=== PATIENT | female | born 1975 | race Caucasian/White ===

== ENCOUNTER 2019-09-01 19:29 | Emergency (ER) | payer MEDICAID, OTHER ==
--- OUTSIDE RECORDS SUMMARY | 2019-09-01 19:31 | XMS REPORT ---
:1975 [facility] Address [address] [place] [address] Dr. Rangel [address] [place] [id number] Care Team Providers Name Role Phone Unavailable Unavailable Unavailable Payers Payer Name Policy Type Policy Number Effective Date Expiration Date Problems This patient has no known problems. Allergies, Adverse Reactions, Alerts This patient has no known allergies or adverse reactions. Medications This patient has no known medications.
--- NOTE | 2019-09-01 21:23 | ER ---
Nurse's Notes [facility] Name: Stoney Vu Age: 44 yrs Sex: Female : 1975 Arrival Date: 09/01/2019 Time: 19:30 Bed 15 Private MD: Diagnosis: Fever, unspecified;Acute upper respiratory infection, unspecified Presentation: 08/31 19:58 Chief complaint: Patient states: "I brought my son yesterday and he was diagnosed with jd3 type B flu. today I am having fever and body aches and I wanted to get checked out.". Coronavirus screen: The patient has NOT traveled to a country currently being monitored by the [facility] within the last 14 days. The patient has NOT had contact with any known and/or suspected case of coronavirus. Proceed with normal triage procedures. Ebola Screen: Patient negative for fever greater than or equal to 101.5 degrees Fahrenheit, and additional compatible Ebola Virus Disease symptoms. Initial Sepsis Screen: Does the patient meet any 2 criteria? No. Patient's initial sepsis screen is negative. Does the patient have a suspected source of infection? No. Patient's initial sepsis screen is negative. Risk Assessment: Do you want to hurt yourself or someone else? Patient reports no desire to harm self or others. Note Tylenol taken at 1900. 19:58 Method Of Arrival: Ambulatory jd3 19:58 Acuity: ESTELEL 4 jd3 21:40 Onset of symptoms was September 01, 2019. mg2 Triage Assessment: 21:40 General: Appears in no apparent distress. comfortable, Behavior is calm, cooperative. 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 - Social history:: Smoking status: Patient reports the use of cigarette tobacco products, smokes one-half pack cigarettes per day. - Family history:: not pertinent. Screenin:40 Abuse screen: Denies threats or abuse. Denies injuries from another. Nutritional mg2 screening: No deficits noted. Tuberculosis screening: No symptoms or risk factors identified. 21:40 Fall Risk None identified. mg2 Assessment: 21:40 General: Appears in no apparent distress. comfortable. Pain: Denies pain. Neuro: Level mg2 of Consciousness is awake, alert, obeys commands, Oriented to person, place, time, situation. Cardiovascular: Capillary refill < 3 seconds Patient's skin is warm and dry. Respiratory: Airway is patent Respiratory effort is even, unlabored, Respiratory pattern is regular, symmetrical. Respiratory: Reports cough that is. GI: No signs and/or symptoms were reported involving the gastrointestinal system. : No signs and/or symptoms were reported regarding the genitourinary system. EENT: No signs and/or symptoms were reported regarding the EENT system. Derm: Skin is intact, is healthy with good turgor, Skin is pink, warm \\T\\ dry. normal. Musculoskeletal: Circulation, motion, and sensation intact. Capillary refill < 3 seconds. Vital Signs: 20:01 BP 138 / 98; Pulse 93; Resp 17 S; Temp 98.0(O); Pulse Ox 97% on R/A; Weight 127.01 kg jd3 (R); Height 5 ft. 7 in. (170.18 cm) (R); Pain 2/10; 21:40 BP 130 / 89; Pulse 90; Resp 18; Temp 98; Pulse Ox 100% on R/A; mg2 20:01 Body Mass Index 43.86 (127.01 kg, 170.18 cm) jd3 ED Course: 19:30 Patient arrived in ED. cl3 19:59 Triage completed. jd3 20:01 Arm band placed on. jd3 20:54 Harmeet Otero MD is Attending Physician. torito 21:36 Lino Condon, SARAH is Primary Nurse. mg2 21:40 No provider procedures requiring assistance completed. mg2 21:40 Patient did not have IV access during this emergency room visit. mg2 21:41 Patient has correct armband on for positive identification. mg2 Administered Medications: 21:44 Drug: Tamiflu 75 mg Route: PO; mg2 21:44 Follow up: Response: No adverse reaction; Medication administered at discharge. mg2 Outcome: 21:23 Discharge ordered by . torito 21:45 Patient left the ED. mg2 21:45 Discharged to home ambulatory, with family. mg2 21:45 Condition: good 21:45 Discharge instructions given to patient, family, Instructed on discharge instructions, mg2 follow up and referral plans. medication usage, Demonstrated understanding of instructions, follow-up care, medications, Prescriptions given X 1. Signatures: Harmeet Otero MD MD cha Davies, Jonathon, RN RN jd3 Lino Condon RN RN mg2 Alma Delia Ibanez cl3 Corrections: (The following items were deleted from the chart) 20:03 20:01 Resp 17bpm; Temp 98.0F; 127.01 kg Reported; Height 5 ft. 7 in. Reported; BMI: jd3 43.8; Pain 2/10; jd3
--- NOTE | 2019-09-01 21:23 | EDPHYS ---
Physician Documentation [facility] Name: Stoney Vu Age: 44 yrs Sex: Female : 1975 Arrival Date: 09/01/2019 Time: 19:30 Bed 15 Private MD: ED Physician Harmeet Otero HPI: 08/31 21:21 This 44 yrs old Female presents to ER via Ambulatory with complaints of Fever.torito 21:21 The patient reports fever, that was measured at 101 degrees Fahrenheit. Onset: The torito symptoms/episode began/occurred 2 day(s) ago. Modifying factors: there are no obvious modifying factors. Associated signs and symptoms: Pertinent positives: chills, cough, headache, myalgias, runny nose, sinus congestion. Severity of symptoms: At their worst the symptoms were mild in the emergency department the symptoms are unchanged. The patient has not experienced similar symptoms in the past. 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 - Social history:: Smoking status: Patient reports the use of cigarette tobacco products, smokes one-half pack cigarettes per day. - Family history:: not pertinent. ROS: 21:21 Constitutional: Negative for fever, chills, and weight loss, Eyes: Negative for injury, torito pain, redness, and discharge, ENT: Negative for injury, pain, and discharge, Neck: Negative for injury, pain, and swelling, Cardiovascular: Negative for chest pain, palpitations, and edema, Abdomen/GI: Negative for abdominal pain, nausea, vomiting, diarrhea, and constipation, Back: Negative for injury and pain, : Negative for injury, bleeding, discharge, and swelling, MS/Extremity: Negative for injury and deformity, Skin: Negative for injury, rash, and discoloration, Neuro: Negative for headache, weakness, numbness, tingling, and seizure, Psych: Negative for depression, anxiety, suicide ideation, homicidal ideation, and hallucinations, Allergy/Immunology: Negative for hives, rash, and allergies, Endocrine: Negative for neck swelling, polydipsia, polyuria, polyphagia, and marked weight changes, Hematologic/Lymphatic: Negative for swollen nodes, abnormal bleeding, and unusual bruising. 21:21 Respiratory: Positive for cough, with no reported sputum. Exam: 21:21 Constitutional: This is a well developed, well nourished patient who is awake, alert, torito and in no acute distress. Head/Face: Normocephalic, atraumatic. Eyes: Pupils equal round and reactive to light, extra-ocular motions intact. Lids and lashes normal. Conjunctiva and sclera are non-icteric and not injected. Cornea within normal limits. Periorbital areas with no swelling, redness, or edema. ENT: Nares patent. No nasal discharge, no septal abnormalities noted. Tympanic membranes are normal and external auditory canals are clear. Oropharynx with no redness, swelling, or masses, exudates, or evidence of obstruction, uvula midline. Mucous membranes moist. Neck: Trachea midline, no thyromegaly or masses palpated, and no cervical lymphadenopathy. Supple, full range of motion without nuchal rigidity, or vertebral point tenderness. No Meningismus. Chest/axilla: Normal chest wall appearance and motion. Nontender with no deformity. No lesions are appreciated. Cardiovascular: Regular rate and rhythm with a normal S1 and S2. No gallops, murmurs, or rubs. Normal PMI, no JVD. No pulse deficits. Respiratory: Lungs have equal breath sounds bilaterally, clear to auscultation and percussion. No rales, rhonchi or wheezes noted. No increased work of breathing, no retractions or nasal flaring. Abdomen/GI: Soft, non-tender, with normal bowel sounds. No distension or tympany. No guarding or rebound. No evidence of tenderness throughout. Back: No spinal tenderness. No costovertebral tenderness. Full range of motion. Skin: Warm, dry with normal turgor. Normal color with no rashes, no lesions, and no evidence of cellulitis. MS/ Extremity: Pulses equal, no cyanosis. Neurovascular intact. Full, normal range of motion. Neuro: Awake and alert, GCS 15, oriented to person, place, time, and situation. Cranial nerves II-XII grossly intact. Motor strength 5/5 in all extremities. Sensory grossly intact. Cerebellar exam normal. Normal gait. Psych: Awake, alert, with orientation to person, place and time. Behavior, mood, and affect are within normal limits. 21:21 Musculoskeletal/extremity: DVT Exam: No signs of deep vein thrombosis. no pain, no swelling, no tenderness, negative Homans' sign noted on exam, no appreciated bluish discoloration, no erythema, no increased warmth. Vital Signs: 20:01 BP 138 / 98; Pulse 93; Resp 17 S; Temp 98.0(O); Pulse Ox 97% on R/A; Weight 127.01 kg jd3 (R); Height 5 ft. 7 in. (170.18 cm) (R); Pain 2/10; 21:40 BP 130 / 89; Pulse 90; Resp 18; Temp 98; Pulse Ox 100% on R/A; mg2 20:01 Body Mass Index 43.86 (127.01 kg, 170.18 cm) jd3 MDM: 20:54 Patient medically screened. [facility] 21:22 Data reviewed: vital signs, nurses notes. [facility] Administered Medications: 21:44 Drug: Tamiflu 75 mg Route: PO; mg2 21:44 Follow up: Response: No adverse reaction; Medication administered at discharge. mg2 Disposition: 09/01/19 21:23 Discharged to Home. Impression: Fever, unspecified, Acute upper respiratory infection, unspecified. - Condition is Stable. - Discharge Instructions: Upper Respiratory Infection, Adult, Upper Respiratory Infection, Adult, [id number], Cough, Adult. - Prescriptions for Tamiflu 75 mg Oral Capsule - take 1 tablet by ORAL route every 12 hours for 5 days; 10 tablet. - Medication Reconciliation Form, Thank You Letter, Antibiotic Education, Prescription Opioid Use form. - Follow up: Private Physician; When: 2 - 3 days; Reason: Recheck today's complaints, Continuance of care, Re-evaluation by your physician. - Problem is new. - Symptoms have improved. Signatures: Harmeet Otero MD MD cha Davies, Jonathon, RN RN jd3 Lino Condon RN RN mg2 Corrections: (The following items were deleted from the chart) 21:45 21:23 09/01/2019 21:23 Discharged to Home. Impression: Fever, unspecified; Acute upper mg2 respiratory infection, unspecified. Condition is Stable. Forms are Medication Reconciliation Form, Thank You Letter, Antibiotic Education, Prescription Opioid Use. Follow up: Private Physician; When: 2 - 3 days; Reason: Recheck today's complaints, Continuance of care, Re-evaluation by your physician. Problem is new. Symptoms have improved. torito
[2019-09-01] MEDS ORDERED: OSELTAMIVIR 75 MG CAP ONE (21:42)
[2019-09-01 22:23] VITALS: BP 138/98; TEMP 98; O2SAT 97
== END 2019-09-01 21:45 | disposition home or self-care (01) ==
LOC: ER 19:29
DX: J06.9 Acute upper respiratory infection, unspecified (principal)
CPT/HCPCS: 99283

== ENCOUNTER 2020-04-04 11:26 | Emergency (ER) | payer OTHER ==
--- OUTSIDE RECORDS SUMMARY | 2020-04-04 12:11 | XMS REPORT | Continuity of Care Document ---
:1975 Author Organization [facility] t Address [address] [place] [address] Care Team Providers Name Role Phone Unavailable Unavailable Unavailable Payers Payer Name Policy Type Policy Number Effective Date Expiration Date S ource Problems This patient has no known problems. Allergies, Adverse Reactions, Alerts Allergy Allergy Status Severity Reaction(s) Onset Inactive Treating Comm ents Source Name Type Date Date Clinician [place] DA Active [facility] ins 10-28 [place] 00:00: [facility] 00 [facility] Medications This patient has no known medications. Procedures This patient has no known procedures. Results Test Description Test Time Test Comments Results Result Comments Source SURGICAL SPECIMENS 2019-11-12 08:35:00 RUN DATE: 11/12/19 [facility] - LAB PAGE 1 RUN TIME: 0835 Specimen Inquiry RUN USER: INTERFACE PATIENT: PAT MAI LOC: Daniel5N POD B U #: [id number] AGE/SX: 44/F ROOM: [facility] RE11/09/19REG DR: Immanuel Villatoro MD : 75 BED: 1 DIS: 11/10/19 STATUS: DIS IN TLOC: SPEC #: [id number] RECD: 11/09/19 STATUS: APOORVA REQ #: [id number] ILIANA: 11/09/19-[address]: Immanuel Villatoro MD ENTERED: 11/09/19 SP TYPE: SURG OTHR DR: No Primary or Family Physician Lanre Lee Jr, MDORDERED: PATHGM5, PATH SPEC, H E STAIN, IRON STAIN, PAS STAIN, TRICHROME STAIN, PAS WO.STAIN HISTOLOGY: TISSUE ID BLK PCS PETE LEV / PROCEDURE DISPOSITION ____ ___ ___ ___ ___ LIVER WEDGE BX A 1 2 TISSUES: A. LIVER WEDGE BIOPSY - Liver Biopsy CLINICAL HISTORY Morbid Obesity COMMENT Sections of the specimen demonstrate liver parenchyma with mild steatosis (approximately 5%). Mild nonspecific lobular and portal tract inflammation which predominantly consists of lymphocytes and macrophages is identified. Special stains are performed. No iron accumulation is identified on an iron stain. No PAS positive diastase resistant globules are identified (PAS stains with and without diastase). A trichrome stain demonstrates mild fibrous expansion of some portal tracts. The findings support the morphologic interpretation. Clinical correlation is recommended. FINAL DIAGNOSIS A-LIVER, WEDGE BIOPSY: - Mild steatosis. -See comment. GROSS DESCRIPTION A-LIVER BIOPSY: A piece of cade tissue which measures 1.5 x 0.7 x 0.7 cm. The specimen is sectioned and submitted in its entirety in a single cassette. MICROSCOPIC DESCRIPTION Microscopic performed. CONTINUED ON NEXT PAGE RUN DATE: 11/12/19 [facility] - LAB PAGE 2 RUN TIME: 834 Specimen Inquiry RUN USER: INTERFACE SPEC #: [id number] PATIENT: PAT MAI TARA #[id number] (Continued)--------- --- Signed SIGNATURE ON FILE AndrewKathy MD 11/12/19 0835 END OF REPORT MAGNESIUM 2019-11-10 07:06:00 Test Item Value Reference Range Interpretation Comme nts MAGNESIUM (test code = MAG) 1.6 mg/dL 1.4-2.6 N [id number] 07:06:00 Test Item Value Reference Range Interpretation Comments PHOSPHOROUS (test code = PHOS) 2.6 mg/dL 2.7-4.5 L BASIC METABOLIC [id number] 07:06:00 Test Item Value Reference Range Interpretation Comments SODIUM (test code 139 MMOL/L 136-143 N = NA) POTASSIUM (test 4.8 MMOL/L 3.5-5.1 N code = K) CHLORIDE (test 103 MMOL/L 98-107 N code = CL) CARBON DIOXIDE 25 mmol/L 24-31 N (test code = CO2) GLUCOSE (test code 116 mg/dL 70-104 H = GLU) BLOOD UREA 8.2 MG/DL 7.0-21.0 N NITROGEN (test code = BUN) GLOMERULAR >=60 max >60 The estimated FILTRATION RATE estimate glomerular (test code = GFR) filtration rate is computed usingpatient ra ce, age (>18), sex, and serum creatinin e. If anyof the neede d data elements a re missing the Laboratory johnnie ot compute an estimation of t he glomerular filtration rate . CREATININE (test 0.6 mg/dL 0.8-1.5 L code = CREAT) CALCIUM (test code 8.9 mg/dL 8.8-10.2 N = CA) CBC W/AUTO [id number] 06:34:00 Test Item Value Reference Range Interpretation Comments WHITE BLOOD CELL (test code = 14.7 x10 3/uL 4.8-10.8 H WBC) RED BLOOD CELL (test code = 3.51 x10 6/uL 4.20-5.40 L RBC) HEMOGLOBIN (test code = HGB) 11.3 g/dL 14.5-20 L HEMATOCRIT (test code = HCT) 34.8 % 37.0-47.0 L MEAN CELL VOLUME (test code = 99.1 fL 81.0-99.0 H MCV) MEAN CELL HGB (test code = 32.2 pg 27-31 H MCH) MEAN CELL HGB CONCENTRATION 32.5 G/DL 33-36.5 L (test code = MCHC) RED CELL DISTRIBUTION WIDTH 14.0 % 12.9-16.9 N (test code = RDW) PLATELET COUNT (test code = 251 150-440 N PLT) MEAN PLATELET VOLUME (test 10.5 fL 8.9-12.4 N code = MPV) NEUTROPHIL % (test code = NT%) 78.8 % 42.2-75.2 H LYMPHOCYTE % (test code = LY%) 13.8 % 20.5-51.1 L MONOCYTE % (test code = MO%) 6.6 % 1.7-9.3 N EOSINOPHIL % (test code = EO%) 0.2 % 0.0-7.0 N BASOPHIL % (test code = BA%) 0.2 % 0-2.5 N NEUTROPHIL # (test code = NT#) 11.56 x10 3/uL 1.80-7.70 H LYMPHOCYTE # (test code = LY#) 2.02 x10 3/uL 1.00-4.80 N MONOCYTE # (test code = MO#) 0.97 x10 3/uL 0.00-0.80 H EOSINOPHIL # (test code = EO#) 0.03 x10 3/uL 0.00-0.45 N BASOPHIL # (test code = BA#) 0.03 x10 3/uL 0.0-0.20 N COMPREHENSIVE METABOLIC [id number] 14:08:00 Test Item Value Reference Range Interpretation Comments SODIUM (test code = 139 MMOL/L 136-143 N NA) POTASSIUM (test 5.0 MMOL/L 3.5-5.1 N code = K) CHLORIDE (test code 102 MMOL/L 98-107 N = CL) CARBON DIOXIDE 26 mmol/L 24-31 N (test code = CO2) GLUCOSE (test code 86 mg/dL 70-104 N = GLU) BLOOD UREA NITROGEN 13.8 MG/DL 7.0-21.0 N (test code = BUN) GLOMERULAR >=60 max >60 The estimated FILTRATION RATE estimate glomerular (test code = GFR) filtration rate is computed usingpatient ra ce, age (>18), sex, and serum creatinin e. If anyof the ne eded data elements a re missing the Laboratory johnnie ot compute an estimation of t he glomerular filtration rate . CREATININE (test 0.6 mg/dL 0.8-1.5 L code = CREAT) TOTAL PROTEIN (test 7.0 g/dL 6.3-8.3 N code = PROT) ALBUMIN (test code 4.1 G/DL 3.5-5.0 N = ALB) CALCIUM (test code 9.3 mg/dL 8.8-10.2 N = CA) BILIRUBIN TOTAL 0.2 mg/dL 0.2-1.0 N (test code = BILT) SGOT/AST (test code 16 IU/L 10-34 N = AST) SGPT/ALT (test code 18 U/L 10-36 N = ALT) ALKALINE 98 U/L 32-104 N PHOSPHATASE (test code = ALKP) PROTHROMBIN [id number] 13:33:00 Test Item Value Reference Range Interpretation Comments PROTHROMBIN TIME 10.8 SECONDS 10.3-12.9 N PATIENT (test code = PTP) INTERNATIONAL 0.96 INR UNIT 0.9-1.11 N The INR is us eful only NORMAL RATIO (test for monit oring code = INR) anticoagulant therapy.It may be unreliable in t he initial phase o f antigoagulation and in unstable patien ts. Indication for Anticoagulation Recommend ed INR 1. Prevention o f venous thomboembolism 2.0-3.0in high -risk patients; treat ment of venousthrombosi s and pulmonary embol ism aftera course o f heparin; preven tion of systemicembolis m in a variety of cond itions, including atria l fibrillation an d prothetic tissu e heart valves, 2. Pros thetic mechanical hear t valves; 2.5-3.5recurren t systemic emboli sm. THROMBOPLASTIN TIME [id number] 13:33:00 Test Item Value Reference Range Interpretation Comments THROMBOPLASTIN TIME 39.4 SECONDS 26.0-35.9 H INTERPRE TATIVE PARTIAL (test code = DATA:Th erapeutic PTT) range: Unfractionated heparin:47 - 71 seconds Argatroban:1.5 to 3 times the basel ine PTT CBC W/AUTO [id number] 13:28:00 Test Item Value Reference Range Interpretation Comments WHITE BLOOD CELL (test code = 9.9 x10 3/uL 4.8-10.8 N WBC) RED BLOOD CELL (test code = 3.87 x10 6/uL 4.20-5.40 L RBC) HEMOGLOBIN (test code = HGB) 12.3 g/dL 14.5-20 L HEMATOCRIT (test code = HCT) 37.3 % 37.0-47.0 N MEAN CELL VOLUME (test code = 96.4 fL 81.0-99.0 N MCV) MEAN CELL HGB (test code = MCH) 31.8 pg 27-31 H MEAN CELL HGB CONCENTRATION 33.0 G/DL 33-36.5 N (test code = MCHC) RED CELL DISTRIBUTION WIDTH 13.9 % 12.9-16.9 N (test code = RDW) PLATELET COUNT (test code = 268 150-440 N PLT) MEAN PLATELET VOLUME (test code 10.3 fL 8.9-12.4 N = MPV) NEUTROPHIL % (test code = NT%) 68.4 % 42.2-75.2 N LYMPHOCYTE % (test code = LY%) 22.3 % 20.5-51.1 N MONOCYTE % (test code = MO%) 6.1 % 1.7-9.3 N EOSINOPHIL % (test code = EO%) 2.2 % 0.0-7.0 N BASOPHIL % (test code = BA%) 0.7 % 0-2.5 N NEUTROPHIL # (test code = NT#) 6.76 x10 3/uL 1.80-7.70 N LYMPHOCYTE # (test code = LY#) 2.20 x10 3/uL 1.00-4.80 N MONOCYTE # (test code = MO#) 0.60 x10 3/uL 0.00-0.80 N EOSINOPHIL # (test code = EO#) 0.22 x10 3/uL 0.00-0.45 N BASOPHIL # (test code = BA#) 0.07 x10 3/uL 0.0-0.20 N SURGICAL [id number] 06:57:00 RUN DATE: 11/03/19 [facility] - LAB PAGE 1 RUN TIME: 656 Specimen Inquiry RUN USER: INTERFACE PATIENT: PAT MAI LOC: CADE U #: [id number] AGE/SX: 44/F [facility]: Immanuel Villatoro MD : 75 BED: DIS: STATUS: [place] [facility] [place]LOC: SPEC #: [id number] RECD: 10/30/19 STATUS: APOORVA REAlisa #: [id number] ILIANA: 10/30/[address]: Immanuel Villatoro MD ENTERED: 10/30/19 SP TYPE: SURG OTHR DR: Lanre Lee Jr, MD ORDERED: PATHGM4, PATH SPEC, H E STAIN HISTOLOGY: TISSUE ID BLK PCS PETE LEV / PROCEDURE DISPOSITION ____ ___ ___ ___ ___ ANTRUM BIOPSYA 1 3 1 TISSUES: A. ANTRUM BIOPSY - Gastric Antrum Bx CLINICAL HISTORY GERD FINAL DIAGNOSIS A-GASTRIC ANTRUM, BIOPSY: - Antral type gastric mucosa with minimal chronic inflammation and reactive epithelial changes, including features suggestive of a component of reactive gastropathy/chemical gastritis. - Negative for H. pylori organisms on routine histology. GROSS DESCRIPTION A-GASTRIC ANTRUM: Two pieces of tissue which measure 2 mm each. Entirely submitted in a single cassette. /th MICROSCOPIC DESCRIPTION Microscopic performed. Signed SIGNATURE ON FILE Kathy Morales MD 11/03/19 0657 END OF REPORT Coronavirus 2018 nCoV [id number] 13:25:00 Test Item Value Reference Range Interpretation Comments Coronavirus 2019 nCoV Bedside (test Negative NEGATIVE code = [id number])
--- NOTE | 2020-04-04 13:28 | ER ---
Nurse's Notes [facility] Name: Stoney Vu Age: 45 yrs Sex: Female : 1975 Arrival Date: 04/04/2020 Time: 11:28 Bed 15 Private MD: Lanre Lee E Diagnosis: Insect bite (nonvenomous) of forearm Presentation: 04/04 11:39 Chief complaint: Patient states: had some insect bites on her legs and arms over the iw weekend, has been scratching them and wants to make sure they're not infected. Coronavirus screen: At this time, the client does not indicate any symptoms associated with coronavirus-19. Ebola Screen: Patient negative for fever greater than or equal to 101.5 degrees Fahrenheit, and additional compatible Ebola Virus Disease symptoms Patient denies exposure to infectious person. Patient denies travel to an Ebola-affected area in the 21 days before illness onset. No symptoms or risks identified at this time. Initial Sepsis Screen: Does the patient meet any 2 criteria? No. Patient's initial sepsis screen is negative. Does the patient have a suspected source of infection? No. Patient's initial sepsis screen is negative. Risk Assessment: Do you want to hurt yourself or someone else? Patient reports no desire to harm self or others. Onset of symptoms was April 02, 2020. 11:39 Method Of Arrival: Ambulatory iw 11:39 Acuity: ESTELLE 4 iw Triage Assessment: 12:06 Bite description: animal information: vaccination(s). 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 - Social history:: Smoking status: Patient reports the use of cigarette tobacco products, smokes one-half pack cigarettes per day. - Family history:: not pertinent. Screenin:47 Abuse screen: Denies threats or abuse. Denies injuries from another. Nutritional ca1 screening: No deficits noted. Tuberculosis screening: No symptoms or risk factors identified. Fall Risk None identified. Assessment: 11:47 General: Appears in no apparent distress. comfortable, Behavior is calm, cooperative, ca1 appropriate for age. Pain: Denies pain. Neuro: Level of Consciousness is awake, alert, obeys commands, Oriented to person, place, time, situation. Derm: Skin is healthy with good turgor, Skin is pink, warm \T\ dry. Rash noted that is itchy, on right hand, left hand, right foot and left foot. Musculoskeletal: Circulation, motion, and sensation intact. Capillary refill < 3 seconds. 13:30 Reassessment: Patient appears in no apparent distress at this time. Patient is alert, ca1 oriented x 3, equal unlabored respirations, skin warm/dry/pink. Vital Signs: 11:39 BP 162 / 79; Pulse 55; Resp 16; Temp 97.9; Pulse Ox 97% on R/A; Weight 113.4 kg; Height iw 5 ft. 7 in. (170.18 cm); 13:30 BP 145 / 76; Pulse 61; Resp 15 S; Pulse Ox 98% on R/A; ca1 11:39 Body Mass Index 39.16 (113.40 kg, 170.18 cm) iw ED Course: 11:28 Patient arrived in ED. as 11:28 Lanre Lee MD is Private Physician. as 11:41 Triage completed. iw 11:43 Arm band placed on. iw 11:46 Harmeet Otero MD is Attending Physician. torito 11:47 Patient has correct armband on for positive identification. Bed in low position. Call ca1 light in reach. Side rails up X 1. Pulse ox on. NIBP on. 11:49 Violette Funes RN is Primary Nurse. ca1 13:27 Lanre Lee MD is Referral Physician. torito 13:46 No provider procedures requiring assistance completed. Patient did not have IV access ca1 during this emergency room visit. Administered Medications: No medications were administered Outcome: 13:27 Discharge ordered by . torito 13:46 Discharged to home ambulatory. ca1 13:46 Condition: stable 13:46 Discharge instructions given to patient, Instructed on discharge instructions, follow up and referral plans. medication usage, Demonstrated understanding of instructions, follow-up care, medications, Prescriptions given X 4. 13:46 Patient left the ED. ca1 Signatures: Harmeet Otero MD MD cha Martinez, Amelia as Williams, Irene, RN RN iw Violette Funes RN RN ca1 Corrections: (The following items were deleted from the chart) 11:43 11:39 Resp 16bpm; Pulse Ox 97% RA; Temp 97.9F; 113.4 kg; Height 5 ft. 7 in.; BMI: 39.1; iw iw
--- NOTE | 2020-04-04 13:28 | EDPHYS ---
Physician Documentation [facility] Name: Stoney Vu Age: 45 yrs Sex: Female : 1975 Arrival Date: 04/04/2020 Time: 11:28 Bed 15 Private MD: Lanre Lee E ED Physician Harmeet Otero HPI: 04/04 13:24 This 45 yrs old Female presents to ER via Ambulatory with complaints of torito Insect Bite. 13:24 The patient or guardian complains of pain, a rash. The complaints affect the right torito wrist. Context: The problem was sustained outdoors. Onset: The symptoms/episode began/occurred 2 day(s) ago. Treatment prior to arrival includes: no previous treatment. Associated signs and symptoms: The patient has no apparent associated signs or symptoms. The patient has experienced similar episodes in the past. 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 - Social history:: Smoking status: Patient reports the use of cigarette tobacco products, smokes one-half pack cigarettes per day. - Family history:: not pertinent. ROS: 13:24 Constitutional: Negative for fever, chills, and weight loss, Eyes: Negative for injury, torito pain, redness, and discharge, ENT: Negative for injury, pain, and discharge, Neck: Negative for injury, pain, and swelling, Cardiovascular: Negative for chest pain, palpitations, and edema, Respiratory: Negative for shortness of breath, cough, wheezing, and pleuritic chest pain, Abdomen/GI: Negative for abdominal pain, nausea, vomiting, diarrhea, and constipation, Back: Negative for injury and pain, : Negative for injury, bleeding, discharge, and swelling, Neuro: Negative for headache, weakness, numbness, tingling, and seizure, Psych: Negative for depression, anxiety, suicide ideation, homicidal ideation, and hallucinations, Allergy/Immunology: Negative for hives, rash, and allergies, Endocrine: Negative for neck swelling, polydipsia, polyuria, polyphagia, and marked weight changes, Hematologic/Lymphatic: Negative for swollen nodes, abnormal bleeding, and unusual bruising. 13:24 MS/extremity: Positive for pain, swelling, tenderness, of the right arm. Exam: 13:24 Constitutional: This is a well developed, well nourished patient who is awake, alert, torito and in no acute distress. Head/Face: Normocephalic, atraumatic. Eyes: Pupils equal round and reactive to light, extra-ocular motions intact. Lids and lashes normal. Conjunctiva and sclera are non-icteric and not injected. Cornea within normal limits. Periorbital areas with no swelling, redness, or edema. ENT: Nares patent. No nasal discharge, no septal abnormalities noted. Tympanic membranes are normal and external auditory canals are clear. Oropharynx with no redness, swelling, or masses, exudates, or evidence of obstruction, uvula midline. Mucous membranes moist. Neck: Trachea midline, no thyromegaly or masses palpated, and no cervical lymphadenopathy. Supple, full range of motion without nuchal rigidity, or vertebral point tenderness. No Meningismus. Chest/axilla: Normal chest wall appearance and motion. Nontender with no deformity. No lesions are appreciated. Cardiovascular: Regular rate and rhythm with a normal S1 and S2. No gallops, murmurs, or rubs. Normal PMI, no JVD. No pulse deficits. Respiratory: Lungs have equal breath sounds bilaterally, clear to auscultation and percussion. No rales, rhonchi or wheezes noted. No increased work of breathing, no retractions or nasal flaring. Abdomen/GI: Soft, non-tender, with normal bowel sounds. No distension or tympany. No guarding or rebound. No evidence of tenderness throughout. Back: No spinal tenderness. No costovertebral tenderness. Full range of motion. MS/ Extremity: Pulses equal, no cyanosis. Neurovascular intact. Full, normal range of motion. Neuro: Awake and alert, GCS 15, oriented to person, place, time, and situation. Cranial nerves II-XII grossly intact. Motor strength 5/5 in all extremities. Sensory grossly intact. Cerebellar exam normal. Normal gait. Psych: Awake, alert, with orientation to person, place and time. Behavior, mood, and affect are within normal limits. 13:24 Skin: rash a mild rash is noted. Vital Signs: 11:39 BP 162 / 79; Pulse 55; Resp 16; Temp 97.9; Pulse Ox 97% on R/A; Weight 113.4 kg; Height iw 5 ft. 7 in. (170.18 cm); 13:30 BP 145 / 76; Pulse 61; Resp 15 S; Pulse Ox 98% on R/A; ca1 11:39 Body Mass Index 39.16 (113.40 kg, 170.18 cm) iw MDM: 11:46 Patient medically screened. torito 13:26 Differential diagnosis: abrasion. Data reviewed: vital signs, nurses notes. Data torito interpreted: playground monitor: rate is 55 beats/min, rhythm is regular, Pulse oximetry: on room air is 97 %. Test interpretation: by ED physician or midlevel provider:. Counseling: I had a detailed discussion with the patient and/or guardian regarding: the historical points, exam findings, and any diagnostic results supporting the discharge/admit diagnosis. Administered Medications: No medications were administered Disposition: 04/04/20 13:27 Discharged to Home. Impression: Insect bite (nonvenomous) of forearm. - Condition is Stable. - Discharge Instructions: Insect Bite, [id number], Insect Bite, Rash, Rash, [id number]. - Prescriptions for Bactroban 2 % Topical Ointment - Apply to affected area 1 application by TOPICAL route every 12 hours; 15 gram. Benadryl 25 mg Oral Capsule - take 1 capsule by ORAL route every 6 hours As needed; 30 tablet. Pepcid 20 mg Oral Tablet - take 1 tablet by ORAL route every 12 hours for 10 days; 20 tablet. Bactrim DS 800- 160 mg Oral Tablet - take 1 tablet by ORAL route every 12 hours for 7 days; 14 tablet. - Medication Reconciliation Form, Thank You Letter, Antibiotic Education, Prescription Opioid Use form. - Follow up: Lanre Lee MD; When: 2 - 3 days; Reason: Recheck today's complaints, Continuance of care, Re-evaluation by your physician. - Problem is new. - Symptoms have improved. Signatures: Harmeet Otero MD MD cha Williams, Irene, SARAH SMITH iw Violette Funes RN RN ca1 Corrections: (The following items were deleted from the chart) 13:46 13:27 04/04/2020 13:27 Discharged to Home. Impression: Insect bite (nonvenomous) of ca1 forearm. Condition is Stable. Forms are Medication Reconciliation Form, Thank You Letter, Antibiotic Education, Prescription Opioid Use. Follow up: Lanre Lee; When: 2 - 3 days; Reason: Recheck today's complaints, Continuance of care, Re-evaluation by your physician. Problem is new. Symptoms have improved. torito
[2020-04-04 14:28] VITALS: TEMP 97.9
[2020-04-04 14:29] VITALS: BP 145/76; O2SAT 98
== END 2020-04-04 13:46 | disposition home or self-care (01) ==
LOC: ER 11:26
DX: S50.861A Insect bite (nonvenomous) of right forearm, initial encounter (principal); F31.9 Bipolar disorder, unspecified; F17.210 Nicotine dependence, cigarettes, uncomplicated; Z88.0 Allergy status to penicillin
CPT/HCPCS: 99283

== ENCOUNTER 2022-01-08 18:44 | Inpatient (IN) | payer OTHER ==
[2022-01-08] MEDS ORDERED: HYDROCODONE/APAP 5/325 MG TAB ONE (19:39)
[2022-01-08] MEDS ORDERED: LIDOCAINE 1% 20 ML MDV ONE (19:39)
--- NOTE | 2022-01-08 19:40 | RAD REPORT ---
EXAM DESCRIPTION: RAD -Hand Left 3 View - 01/08/2022 7:21 pm CLINICAL HISTORY: Left hand pain status post injury FINDINGS: Comminuted intra-articular fracture involves proximal and mid aspect of third distal phala nx. Marked displacement of fracture fragments. Mildly displaced fracture fourth distal phalanx. No dislocation is seen
[2022-01-08] MEDS ORDERED: TETANUS & DIPHTHERIA TOX,ADULT 0.5 ML VIAL ONE (20:37)
--- NOTE | 2022-01-08 20:59 | EDPHYS ---
Physician Documentation [facility] Name: Stoney Vu Age: 46 yrs Sex: Female : 1975 Arrival Date: 01/08/2022 Time: 18:46 Bed 26 Private MD: ED Physician Vincent Gaffney HPI: 01/08 20:17 This 46 yrs old Female presents to ER via Ambulatory with complaints of jl9 Laceration - to finger. 20:17 Onset: The symptoms/episode began/occurred just prior to arrival. 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 - Social history:: Smoking status: Patient reports the use of cigarette tobacco products, unknown amount. ROS: 20:18 Constitutional: Negative for fever, chills, and weight loss, Eyes: Negative for injury, jl9 pain, redness, and discharge, ENT: Negative for injury, pain, and discharge, Neck: Negative for injury, pain, and swelling, Cardiovascular: Negative for chest pain, palpitations, and edema, Respiratory: Negative for shortness of breath, cough, wheezing, and pleuritic chest pain, Abdomen/GI: Negative for abdominal pain, nausea, vomiting, diarrhea, and constipation, Back: Negative for injury and pain, : Negative for injury, bleeding, discharge, and swelling. 20:18 Neuro: Negative for headache, weakness, numbness, tingling, and seizure, Psych: Negative for depression, anxiety, suicide ideation, homicidal ideation, and hallucinations, Allergy/Immunology: Negative for hives, rash, and allergies, Endocrine: Negative for neck swelling, polydipsia, polyuria, polyphagia, and marked weight changes, Hematologic/Lymphatic: Negative for swollen nodes, abnormal bleeding, and unusual bruising. 20:18 MS/extremity: Positive for injury or acute deformity, laceration, 3cm laceration to 3rd digit, 2cm laceration to 4th digit. Left hand. . 20:18 Skin: Positive for laceration(s). Exam: 20:19 Constitutional: This is a well developed, well nourished patient who is awake, alert, jl9 and in no acute distress. 01/09 23:41 MS/ Extremity: Pulses equal, no cyanosis. + deep lacerations to 3rd and 4th digits of rn left hand, inability to flex at DIP of 3rd digit, has flexion and FROM of 4th digit and PIP of 3rd digit. Vital Signs: 01/08 19:01 BP 146 / 119; Pulse 81; Resp 16; Temp 98; Pulse Ox 100% ; bp 19:35 Pulse 77; Pulse Ox 100% on R/A; tw5 20:35 Pain 9/10; aa9 21:37 BP 165 / 86; Pulse 76; Resp 18; Pulse Ox 100% on R/A; Pain 5/10; tw5 22:00 BP 151 / 86; Pulse 68; Resp 16 S; Pulse Ox 99% on R/A; as6 Laceration: 20:20 Wound Repair of 4cm ( 1.6in ) subcutaneous laceration to left hand. Distal jl9 neuro/vascular/tendon intact. Anesthesia: Digital block administered with 5 mls of 1% lidocaine. Wound prep: Simple cleansing, Wound irrigation, Wound margin revised, Wound explored, Copious irrigation. Skin closed with 12 4-0 Prolene using simple sutures and sterile technique. Dressed with 4x4's. Patient tolerated well. 20:20 Wound Repair of 3cm ( 1.2in ) subcutaneous laceration to left hand. Linear shaped.. jl9 Distal neuro/vascular/tendon intact. Anesthesia: Digital block administered with 4 mls of 1% lidocaine. Wound prep: Extensive cleansing, Wound irrigation. Skin closed with 12 4-0 Prolene using simple sutures and sterile technique. Dressed with 4x4's. Patient tolerated well. MDM: 18:55 Patient medically screened. rn 20:21 Data reviewed: vital signs, nurses notes. [facility] 01/08 20:53 Order name: SARS-COV-2 RT PCR (Document "Date of Onset" if Symptomatic); Complete Time: jl9 22:57 01/08 20:59 Order name: CBC with Diff; Complete Time: 22:57 la1 01/08 19:01 Order name: Hand Left 3 View XRAY; Complete Time: 20:11 bp 01/08 20:59 Order name: BMP; Complete Time: 22:57 la1 01/09 05:13 Order name: CBC with Automated Diff EDMS 01/09 05:21 Order name: Basic Metabolic Panel EDMS 01/08 19:23 Order name: Suture Tray at Bedside; Complete Time: 19:35 rn 01/08 19:23 Order name: Dressing - Wound; Complete Time: 19:35 rn 01/08 19:23 Order name: Gloves, Sterile; Complete Time: 19:35 rn 01/08 20:53 Order name: NPO; Complete Time: 20:56 [facility] 01/08 21:24 Order name: IV; Complete Time: 21:37 la1 01/08 21:26 Order name: NPO: AT MIDNIGHT; Complete Time: 21:37 la1 Administered Medications: 19:34 Drug: Lidocaine (1 %) 1 vials {Note: administered at bedside by provider.} Volume: 20 tw5 ml; Route: Infiltration; 19:34 Drug: HYDROcodone-acetaminophen 5 mg-325 mg 1 tabs Route: PO; tw5 20:35 Follow up: Pain 9/10 Adult; Response: No adverse reaction; Pain is decreased; RASS: aa9 Alert and Calm (0) 20:29 Drug: Tetanus-Diphtheria Toxoid Adult 0.5 ml {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 Exp: tw5 09/15/2023. Lot #: [id number]. } Route: IM; Site: right deltoid; 20:35 Follow up: Response: No adverse reaction aa9 21:52 Drug: Nicoderm CQ Patch 21 mg/24 hr 1 patches Route: Transdermal; Site: affected area; tw5 21:52 Drug: NS 0.9% 1000 ml Route: IV; Rate: 100 ml/hr; Site: right antecubital; tw5 21:52 Drug: morphine 2 mg Route: IVP; Infused Over: 4 mins; Site: right antecubital; tw5 23:14 Drug: Ativan (LORazepam) 0.5 mg Route: IVP; Site: right antecubital; aa9 Disposition: 01/09 23:43 Co-signature as Attending Physician, Vincent Gaffney MD. rn 23:43 I agree with the assessment and plan of care. 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 HPI: 46 year old female with crush injury and lacerations to left hand My personal exam of patient reveals: Pulses equal, no cyanosis. + deep lacerations to 3rd and 4th digits of left hand, inability to flex at DIP of 3rd digit, has flexion and FROM of 4th digit and PIP of 3rd digit. I agree with assessment and care plan and confirm the diagnosis (es) above. Disposition Summary: 01/08/22 20:58 Hospitalization Ordered Provider: Bharath Gaffney Condition: Fair jl9 Problem: new jl9 Symptoms: have improved jl9 Bed/Room Type: Standard 9 Location: [facility] ER HOLD(01/08/22 20:59) bb Room Assignment: ERHOLD-(01/08/22 20:59) bb Hospitalization Status: Observation(01/08/22 21:00) la1 Diagnosis - Displaced fracture of distal phalanx of finger jl9 Forms: - Medication Reconciliation Form jl9 - SBAR form jl9 Signatures: Dispatcher [employer] EDMS Shona Lechuga RN RN Vincent Flores MD MD rn Attema, Lee, EVALUATOR-C EVALUATOR-Cla1 Nino Eastman, RN Sarai Heath tw5 Bakari Sargent jl9 Kady Avila, SARAH RN aa9 Corrections: (The following items were deleted from the chart) 01/08 20:59 20:58 Telemetry/MedSurg (Inpatient) jl9 bb 20:59 20:58 jl9 bb 21:00 20:58 Inpatient Admission jl9 la1 21:01 20:20 Wound Repair of 3cm ( 1.2in ) subcutaneous laceration to left hand. Distal jl9 neuro/vascular/tendon intact. Anesthesia: Digital block administered with 5 mls of 1% lidocaine. Wound prep: Simple cleansing, Wound irrigation, Wound margin revised, Wound explored, Copious irrigation. Skin closed with 20 4-0 Prolene using simple sutures and sterile technique. Dressed with 4x4's. Patient tolerated well. jl9 01/09 23:43 23:41 MS/ Extremity: Pulses equal, no cyanosis. + deep lacerations to 3rd and 4th rn digits of left hand, inability to flex at DIP of 3rd digit, has flexion and FROM of 4th digit and PIP of 3rd digit. rn
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
[2022-01-08] MEDS ORDERED: NICOTINE 21 MG/PAT TD ONE (21:49)
[2022-01-08] MEDS ORDERED: MORPHINE 2 MG/ML SYR ONE (21:49)
[2022-01-08] MEDS ORDERED: NA CHLORIDE 0.9% 1,000 ML ONE (21:49)
[2022-01-08 21:58] LABS: Absolute Lymphocytes (CBC) 1.9 K/uL (0.7-4.9); Hematocrit 38.5 % (36.0-45.0); Lymphocytes % 23.5 % (15.3-44.8); MCV 100.9 fL (80-100); MPV 8.6 fL (7.6-11.3); RBC Red Blood Cell Count 3.82 M/uL (3.86-4.86)
[2022-01-08 22:06] LABS: Potassium 3.6 mmol/L (3.5-5.1)
[2022-01-08] MEDS ORDERED: LORazepam 2 MG/ML VIAL ONE (23:17)
[2022-01-09] MEDS ORDERED: ONDANSETRON 4 MG/2 ML VIAL IV PRN (01:36)
[2022-01-09] MEDS ORDERED: NA CHLORIDE 0.9% 1,000 ML IV SCH (01:36)
[2022-01-09] MEDS: MORPHINE 2 MG/ML SYR IV PRN ×3 (01:46→07:31)
[2022-01-09] MEDS ORDERED: ONDANSETRON 4 MG/2 ML VIAL ONE ×2 (01:50→09:53)
[2022-01-09] MEDS ORDERED: MORPHINE 2 MG/ML SYR ONE ×3 (01:50→07:31)
[2022-01-09] MEDS ORDERED: NA CHLORIDE 0.9% 1,000 ML ONE (03:00)
[2022-01-09 03:27] VITALS: BMI 37.5
[2022-01-09 05:07] LABS: Absolute Lymphocytes (CBC) 2.3 K/uL (0.7-4.9); Hematocrit 33.9 % (36.0-45.0); Lymphocytes % 32.8 % (15.3-44.8); MCV 101.8 fL (80-100); MPV 8.8 fL (7.6-11.3); RBC Red Blood Cell Count 3.33 M/uL (3.86-4.86)
[2022-01-09 05:19] LABS: Potassium 3.8 mmol/L (3.5-5.1)
[2022-01-09] MEDS ORDERED: HYDROMORPHONE HCL 0.5 MG/0.5 ML INJ IV ONE ×2 (05:47→08:15)
[2022-01-09] MEDS ORDERED: KCL 20 MEQ/100 mL IVPB 100 ML IV ONE (05:56)
[2022-01-09] MEDS ORDERED: HYDROMORPHONE HCL 0.5 MG/0.5 ML INJ ONE ×2 (05:56→08:22)
--- NOTE | 2022-01-09 05:58 | P.PN ---
Date of Service: 01/09/22 Problem List Open, comminuted, displaced fracture of left mid and distal third phalanx with intra-articular component Nondisplaced fracture left distal fourth phalanx Depression/anxiety/bipolar disorder Tobacco abuse Plan: Open, comminuted, displaced fracture of left mid and distal third phalanx with intra-articular component Nondisplaced fracture left distal fourth phalanx NPO, for likely OR today with Dr. Bryant continue pain meds PRN IVF Depression/anxiety/bipolar disorder: Continue home medications when appropriate Tobacco abuse: Counseled on need for cessation, NicoDerm patch provided.
[2022-01-09] MEDS ORDERED: KCL 20 MEQ/100 mL IVPB 20 MEQ/100 ML BAG IV SCH (06:00)
[2022-01-09] MEDS ORDERED: CIPROFLOXACIN 400mg IV 400 MG/200 ML BAG IV ONE (08:57)
[2022-01-09] MEDS ORDERED: FENTANYL CITR 100 MCG/2 ML ONE ×3 (09:53→11:45)
[2022-01-09] MEDS ORDERED: LIDOCAINE 1% MPF 5 ML VIAL ONE (09:53)
[2022-01-09] MEDS ORDERED: dexAMETHasone 10 MG/ML VIAL ONE (09:53)
[2022-01-09] MEDS ORDERED: KETOROLAC 30 MG/ML INJ ONE (09:53)
[2022-01-09] MEDS ORDERED: propofoL 200 MG/20 ML VIAL IV ONE (09:53)
[2022-01-09] MEDS ORDERED: MIDAZOLAM HCL 2 MG/2 ML INJ ONE (09:53)
--- NOTE | 2022-01-09 11:31 | RAD REPORT ---
EXAM DESCRIPTION: RAD - Fluoroscopy <1 Hour - 01/09/2022 11:17 am CLINICAL HISTORY: Left finger pinning FINDINGS: A pin has been placed into what appears to be the third phalanx affixing a fracture Surgery performed by Dr. Bryant Fluoroscopy time 8 seconds. Three fluoroscopic spot images obtained
[2022-01-09 12:45] VITALS: BP 157/86; TEMP 97.1; O2SAT 97
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
--- NOTE | 2022-01-09 22:49 | OP ---
Surgeon: Javed Bryant MD Preoperative Diagnosis: Open fractures of the left middle finger and left ring finger distal phalanx. Postoperative Diagnosis: Open fractures of the left middle finger and left ring finger distal phalanx. Procedure Performed: Debridement of skin and subcu tissue, bone fusion of the DIP of the left middle finger with bone grafting to the distal phalanx of the left middle finger. Microscope dissection repair of ulnar digital nerve and flap closure of the ring finger splints x2. Anesthesia: General. Description Of Procedure: After the satisfactory induction of general anesthesia, left hand was prepped with Betadine scrub, Betadine paint, dry sterile drapes applied in usual manner. The arm was elevated and exsanguinated with an Esmarch. Tourniquet was inflated to 250 mmHg. The hand was placed on a roll lock table. Sutures were removed from previous closure. The wounds were then jet lavaged, irrigated. The skin was debrided. The patient had a transverse fracture in distal phalanx of the ring finger, the bone was debrided distally. It was not suitable for pinning. Then, the middle finger was examined. The patient had multiple comminuted fracture of the joint, was not salvageable. A saw was used to divide the bone taken off the distal portion of the middle phalanx and then the proximal portion of the distal phalanx the largest fragment and the fragment was then discarded and used for bone graft later. The patient had a K-wire passed from proximal to distal phalanx and then from distal to proximal impaling fracture of the distal phalanx and then impaling it into the middle phalanx. This was done on direct visualization. C- arm imaging showed adequate fusion of the joint. The bone grafts were later crushed and placed around the fusion as well as the patellar fracture. The microscope was brought into the field. The ulnar digital nerve was quite large and was repaired. Epineural dissection was performed first with straight microscissors. Then 9-0 tapered Prolene sutures were used to approximate the epineurium. after this was done, the wound was then closed, the tourniquet released, closed this with 5-0 Prolene simple sutures, dressed with Xeroform, 2 inch Cathie, Kerlix, and a splint holding the PIP deep in extension of both fingers. The patient tolerated the procedure well and returned to Recovery. NATASHA/JIMMIE Voice ID: [id number] Report ID: [id number]
[2022-01-10] MEDS ORDERED: NICOTINE 21 MG/PAT TD SCH (09:00)
--- OUTSIDE RECORDS SUMMARY | 2022-01-11 13:17 | XMS REPORT | Continuity of Care Document ---
:1975 Author Organization [facility] t Address [address] [place] [address] Care Team Providers Name Role Phone Darcie Lee Primary Care Physician PARAG Attending Clinician Unavailable Brandon Villatoro Attending Clinician Unavailable Sreedhar GREEN Attending Clinician SREEDHAR Attending Clinician Unavailable VEL Attending Clinician Unavailable Vel GREEN Attending Clinician ROLANDO ANDRE Attending Clinician Unavailable Rolando Andre DO Attending Clinician Kristen HOSE TENDER, A Attending Clinician Doctor Unassigned, Name Attending Clinician Unavailable Only, Test Attending Clinician Unavailable Parag GREEN Attending Clinician PARAG Admitting Clinician Unavailable Payers Payer Name Policy Type Policy Number Effective Date Expiration Date S yony [facility] [id number] 2018 PLUS 00:00:00 [place]ICAID OF [place] [id number] 2020 00:00:00 Problems Condition Condition Condition Status Onset Resolution Last Treating Co mments Source Name Details Category Date Date Treatment Clinician Date Screening Screening Disease Active 2019-06 Overview: Univers for for 07-12 Formattin ity of colorectal colorectal 00:00: g of this [place] cancer cancer 00 note Medical might be Branch different from the original. Added automatic ally from request for surgery [id number] Wound Wound Disease Active Univers dehiscence dehiscence 5-10 it y of 00:00: [place] 00 Medical Branch S/P S/P Disease Active Univers abdominal abdominal 5-04 ity of hysterecto hysterecto 00:00: [place] my my 00 Medical Branch Morbid Morbid Disease Active Univers obesity obesity 1-18 [place] with [place] mass [place] mass index 00 Me dical of of Branch 40.0-49.9 40.0-49.9 Morbid Morbid Disease Active Univers obesity obesity 1-18 [place] of with body [place] mass index mass index 00 Me dical of of Branch 40.0-49.9 40.0-49.9 Hip pain Hip pain Disease Active Unive rs 11-21 ity of 00:00: [place] 00 Medical Branch History of History of Disease Active U nivers fracture fracture 11-21 ity of of right of right 00:00: [place] hip hip 00 Medical Branch Positive Positive Disease Active Unive rs urine drug urine drug 11-21 it y of screen screen 00:00: [place] 00 Medical Branch Allergies, Adverse Reactions, Alerts Allergy Allergy Status Severity Reaction(s) Onset Inactive Treating Comm ents Source Name Type Date Date Clinician PENICILL DRUG Active High ITCHING 2019- Univers IN INGREDI 07-12 ity of 00:00: [place] 00 Medical Branch Penicill Propensi Active Itching 2019-06 Unive rs in ty to 07-12 ity of adverse 00:00: [place] reaction 00 Medical s Branch Penicill DA Active [place] 2020-0 [facility] [place] [facility] Penicill DA Active LA RASH ITCHING 0 [facility] ins 10-28 [place] 00:00: [facility] NO KNOWN Drug Active Univers ALLERGIE Class ity of S [facility] Social History Social Habit Start Date Stop Date Quantity Comments Source Exposure to Not sure University of SARS-CoV-2 (event) [facility] Alcohol intake 2021-05-01 2021-05-01 Current University of 00:00:00 00:00:00 non-drinker of [facility] alcohol Branch (finding) Tobacco Comment 2017-10-24 2017-10-24 thinking about Unive rsity of 00:00:00 00:00:00 it [facility] Cigarettes smoked 2017-07-11 2017-07-11 Univers ity of current (pack per 00:00:00 00:00:00 ) - Reported Branch Cigarette 2017-07-11 2017-07-11 University of pack-years 00:00:00 00:00:00 [facility] Tobacco use and 2017-07-11 2017-07-11 Never used Universit y of exposure 00:00:00 00:00:00 [facility] Sex Ass[birth year] Universit y of 00:00:00 00:00:00 [facility] Smoking Status Start Date Stop Date Source Current every day smoker 2017-07-11 00:00:00 Uni versity of [facility] Medications Ordered Filled Start Stop Current Ordering Indication Dosage Frequency Signature Comments Components Source Medication Medication Date Date Medication? Clinician (SIG) Name Name hydrocortis 2020-06 Yes [id number] Apply to [facility] one 2.5 % 1-08 affected ity of oint[place] 00:00[place] (two) Medical times Branch daily. hydrocortis 2020-06 Yes [id number] Apply to Univers one 2.5 % 1-08 affected ity of ointment 00:00[place] (two) Medical times Branch daily. nystatin 2020-06- No [id number] Apply to Univers 100,000 1-08 11-16 area(s) 4 ity of unit/gram 00:00: 05:59 (four) [place] cream 00 :00 times Medical daily for Branch 7 days. HYDROcodone 2020- No 1{tbl} Take 1 U nivers -acetaminop 1-05 01-05 tablet by it y of hen (NORCO) 16:48: 00:00 [place] 10-325 mg 08 :00 every 6 Medical tablet (six) Branch hours as needed for Pain (scale 4-6). HYDROcodone 2020- No 1{tbl} Take 1 U nivers -acetaminop 1-05 01-05 tablet by it y of hen (NORCO) 16:48: 00:00 [place] 10-325 mg 08 :00 every 6 Medical tablet (six) Branch hours as needed for Pain (scale 4-6). HYDROcodone 2019-06 Yes 1{tbl} Take 1 Un chase -acetaminop 2-01 tablet by ity of hen (Bench) 20:18: mouth [place] 10-325 mg 53 every 6 Medical tablet (six) Branch hours as needed for Pain (scale 4-6). HYDROcodone 2019-06 Yes 1{tbl} Take 1 Un chase -acetaminop 2-01 tablet by ity of hen (Bench) 20:18: mouth [place] 10-325 mg 53 every 6 Medical tablet (six) Branch hours as needed for Pain (scale 4-6). HYDROcodone 2019-06 Yes 1{tbl} Take 1 Un chase -acetaminop 2-01 tablet by ity of hen (Bench) 20:18: mouth [place] 10-325 mg 53 every 6 Medical tablet (six) Branch hours as needed for Pain (scale 4-6). HYDROcodone 2019-06 Yes 1{tbl} Take 1 Un chase -acetaminop 2-01 tablet by ity of hen (Bench) 20:18: mouth [place] 10-325 mg 53 every 6 Medical tablet (six) Branch hours as needed for Pain (scale 4-6). HYDROcodone 2019-06 Yes 1{tbl} Take 1 Un chase -acetaminop 2-01 tablet by ity of hen (Bench) 20:18: mouth [place] 10-325 mg 53 every 6 Medical tablet (six) Branch hours as needed for Pain (scale 4-6). multivit 2019- Yes 1{tbl} Take 1 Unive rs with 2-01 tablet by ity of calcium,iro 20:18: mouth [place] n,min 05 daily. Medical (MULTIVITAM Branch IN-CALCIUM AND IRON ORAL) Biotin 2019- Yes 1{capsu Take 1 Univer s 10,000 mcg 2-01 le} capsule by ity of Cap 20:18: mouth [place] 05 daily. Medical Branch multivit 2020- Yes 1{tbl} Take 1 Unive rs with 2-01 tablet by ity of calcium,iro 20:18: mouth [place] n,min 05 daily. Medical (MULTIVITAM Branch IN-CALCIUM AND IRON ORAL) Biotin 2020- Yes 1{capsu Take 1 Univer s 10,000 mcg 2-01 le} capsule by ity of Cap 20:18: mouth [place] 05 daily. Medical Branch multivit 2019-06 Yes 1{tbl} Take 1 Unive rs with 2-01 tablet by ity of calcium,iro 20:18: mouth [place] n,min 05 daily. Medical (MULTIVITAM Branch IN-CALCIUM AND IRON ORAL) Biotin 2019-06 Yes 1{capsu Take 1 Univer s 10,000 mcg 2-01 le} capsule by ity of Cap 20:18: mouth [place] 05 daily. Medical Branch multivit 2019-06 Yes 1{tbl} Take 1 Unive rs with 2-01 tablet by ity of calcium,iro 20:18: mouth [place] n,min 05 daily. Medical (MULTIVITAM Branch IN-CALCIUM AND IRON ORAL) Biotin 2019-06 Yes 1{capsu Take 1 Univer s 10,000 mcg 2-01 le} capsule by ity of Cap 20:18: mouth [place] 05 daily. Medical Branch multivit 2019-06 Yes 1{tbl} Take 1 Unive rs with 2-01 tablet by ity of calcium,iro 20:18: mouth [place] n,min 05 daily. Medical (MULTIVITAM Branch IN-CALCIUM AND IRON ORAL) Biotin 2019-06 Yes 1{capsu Take 1 Univer s 10,000 mcg 2-01 le} capsule by ity of Cap 20:18: mouth [place] 05 daily. Medical Branch multivit 2019-06 Yes 1{tbl} Take 1 Unive rs with 2-01 tablet by ity of calcium,iro 20:18: mouth [place] n,min 05 daily. Medical (MULTIVITAM Branch IN-CALCIUM AND IRON ORAL) Biotin 2019-06 Yes 1{capsu Take 1 Univer s 10,000 mcg 2-01 le} capsule by ity of Cap 20:18: mouth [place] 05 daily. Medical Branch multivit 2019-06 Yes 1{tbl} Take 1 Unive rs with 2-01 tablet by ity of calcium,iro 20:18: mouth [place] n,min 05 daily. Medical (MULTIVITAM Branch IN-CALCIUM AND IRON ORAL) Biotin 2019-06 Yes 1{capsu Take 1 Univer s 10,000 mcg 2-01 le} capsule by ity of Cap 20:18: mouth [place] 05 daily. Medical Branch multivit 2019-06 Yes 1{tbl} Take 1 Unive rs with 2-01 tablet by ity of calcium,iro 20:18: mouth [place] n,min 05 daily. Medical (MULTIVITAM Branch IN-CALCIUM AND IRON ORAL) Biotin 2019-06 Yes 1{capsu Take 1 Univer s 10,000 mcg 2-01 le} capsule by ity of Cap 20:18: mouth [place] 05 daily. Medical Branch multivit 2019-06 Yes 1{tbl} Take 1 Unive rs with 2-01 tablet by ity of calcium,iro 20:18: mouth [place] n,min 05 daily. Medical (MULTIVITAM Branch IN-CALCIUM AND IRON ORAL) Biotin 2019-06 Yes 1{capsu Take 1 Univer s 10,000 mcg 2-01 le} capsule by ity of Cap 20:18: mouth [place] 05 daily. Medical Branch multivit 2019-06 Yes 1{tbl} Take 1 Unive rs with 2-01 tablet by ity of calcium,iro 20:18: mouth [place] n,min 05 daily. Medical (MULTIVITAM Branch IN-CALCIUM AND IRON ORAL) Biotin 2019-06 Yes 1{capsu Take 1 Univer s 10,000 mcg 2-01 le} capsule by ity of Cap 20:18: mouth [place] 05 daily. Medical Branch multivit 2019-06 Yes 1{tbl} Take 1 Unive rs with 2-01 tablet by ity of calcium,iro 14:18: mouth [place] n,min 05 daily. Medical (MULTIVITAM Branch IN-CALCIUM AND IRON ORAL) Biotin 2019-06 Yes 1{capsu Take 1 Univer s 10,000 mcg 2-01 le} capsule by ity of Cap 14:18: mouth [place] 05 daily. Medical Branch multivit 2019-06 Yes 1{tbl} Take 1 Unive rs with 2-01 tablet by ity of calcium,iro 14:18: mouth [place] n,min 05 daily. Medical (MULTIVITAM Branch IN-CALCIUM AND IRON ORAL) Biotin 2019-06 Yes 1{capsu Take 1 Univer s 10,000 mcg 2-01 le} capsule by ity of Cap 14:18: mouth [place] 05 daily. Medical Branch multivit 2019-06 Yes 1{tbl} Take 1 Unive rs with 1-23 tablet by ity of calcium,iro 18:58: mouth [place] n,min 54 daily. Medical (MULTIVITAM Branch IN-CALCIUM AND IRON ORAL) Biotin 2019-06 Yes 1{capsu Take 1 Univer s 10,000 mcg 1-23 le} capsule by ity of Cap 18:58: mouth [place] 54 daily. Medical Branch multivit 2019-06 Yes 1{tbl} Take 1 Unive rs with 1-23 tablet by ity of calcium,iro 18:58: mouth [place] n,min 54 daily. Medical (MULTIVITAM Branch IN-CALCIUM AND IRON ORAL) Biotin 2019-06 Yes 1{capsu Take 1 Univer s 10,000 mcg 1-23 le} capsule by ity of Cap 18:58: mouth [place] 54 daily. [facility] Branch multivit 2019-06 Yes 1{tbl} Take 1 Unive rs with 1-23 tablet by ity of calcium,iro 18:58: mouth [place] n,min 54 daily. Medical (MULTIVITAM Branch IN-CALCIUM AND IRON ORAL) Biotin 2019-06 Yes 1{capsu Take 1 Univer s 10,000 mcg 1-23 le} capsule by ity of Cap 18:58: mouth [place] 54 daily. [facility] Branch lamoTRIgine 2019-06 Yes 150mg Take 150 U nivers (LAMICTAL) 1-19 mg by ity of 150 mg 16:07: mouth [place] tablet 10 daily. [facility] Branch ALPRAZOLAM 2019-06 Yes 1mg Take 1 mg Un chase (XANAX 1-19 by mouth ity of ORAL) 16:07: as needed. [address] lamoTRIgine 2019-06 Yes 150mg Take 150 U nivers (LAMICTAL) 1-19 mg by ity of 150 mg 16:07: mouth [place] tablet 10 daily. [facility] Branch ALPRAZOLAM 2019-06 Yes 1mg Take 1 mg Un chase (XANAX 1-19 by mouth ity of ORAL) 16:07: as needed. [address] lamoTRIgine 2019-06 Yes 150mg Take 150 U nivers (LAMICTAL) 1-19 mg by ity of 150 mg 16:07: mouth [place] tablet 10 daily. [facility] lamoTRIgine 2019-06 Yes 150mg Take 150 U nivers (LAMICTAL) 1-19 mg by ity of 150 mg 16:07: mouth [place] tablet 10 daily. Medical Branch lamoTRIgine 2019-06 Yes 150mg Take 150 U nivers (LAMICTAL) 1-19 mg by ity of 150 mg 16:07: mouth [place] tablet 10 daily. [facility] Branch lamoTRIgine 2019-06 Yes 150mg Take 150 U nivers (LAMICTAL) 1-19 mg by ity of 150 mg 16:07: mouth [place] tablet 10 daily. [facility] Branch lamoTRIgine 2019-06 Yes 150mg Take 150 U nivers (LAMICTAL) 1-19 mg by ity of 150 mg 16:07: mouth [place] tablet 10 daily. [facility] Branch lamoTRIgine 2019-06 Yes 150mg Take 150 U nivers (LAMICTAL) 1-19 mg by ity of 150 mg 16:07: mouth [place] tablet 10 daily. [facility] Branch lamoTRIgine 2019-06 Yes 150mg Take 150 U nivers (LAMICTAL) 1-19 mg by ity of 150 mg 16:07: mouth [place] tablet 10 daily. [facility] Branch lamoTRIgine 2019-06 Yes 150mg Take 150 U nivers (LAMICTAL) 1-19 mg by ity of 150 mg 16:07: mouth [place] tablet 10 daily. [facility] Branch lamoTRIgine 2019-06 Yes 150mg Take 150 U nivers (LAMICTAL) 1-19 mg by ity of 150 mg 16:07: mouth [place] tablet 10 daily. [facility] Branch lamoTRIgine 2019-06 Yes 150mg Take 150 U nivers (LAMICTAL) 1-19 mg by ity of 150 mg 16:07: mouth [place] tablet 10 daily. [facility] Branch lamoTRIgine 2019-06 Yes 150mg Take 150 U nivers (LAMICTAL) 1-19 mg by ity of 150 mg 16:07: mouth [place] tablet 10 daily. [facility] Branch lamoTRIgine 2019-06 Yes 150mg Take 150 U nivers (LAMICTAL) 1-19 mg by ity of 150 mg 16:07: mouth [place] tablet 10 daily. [facility] Branch lamoTRIgine 2019-06 Yes 150mg Take 150 U nivers (LAMICTAL) 1-19 mg by ity of 150 mg 16:07: mouth [place] tablet 10 daily. [facility] Branch lamoTRIgine 2019-06 Yes 150mg Take 150 U nivers (LAMICTAL) 1-19 mg by ity of 150 mg 16:07: mouth [place] tablet 10 daily. Medical Branch ALPRAZOLAM 2019-06 Yes 1mg Take 1 mg Un chase (XANAX 1-19 by mouth ity of ORAL) 16:07: as needed. [place] [address] Medical Branch lamoTRIgine 2019-06 Yes 150mg Take 150 U nivers (LAMICTAL) 1-19 mg by ity of 150 mg 16:07: mouth [place] tablet 10 daily. Medical Branch ALPRAZOLAM 2019-06 Yes 1mg Take 1 mg Un chase (XANAX 1-19 by mouth ity of ORAL) 16:07: as needed. [place] [address] Medical Branch lamoTRIgine 2019-06 Yes 150mg Take 150 U nivers (LAMICTAL) 1-19 mg by ity of 150 mg 16:07: mouth [place] tablet 10 daily. Medical Branch ALPRAZOLAM 2019-06 Yes 1mg Take 1 mg Un chase (XANAX 1-19 by mouth ity of ORAL) 16:07: as needed. [place] [address] Medical Branch lamoTRIgine 2019-06 Yes 150mg Take 150 U nivers (LAMICTAL) 1-19 mg by ity of 150 mg 10:07: mouth [place] tablet 10 daily. Medical Branch lamoTRIgine 2019-06 Yes 150mg Take 150 U nivers (LAMICTAL) 1-19 mg by ity of 150 mg 10:07: mouth [place] tablet 10 daily. Medical Branch DULoxetine 2019-06 Yes 1{capsu Take 1 Un chase 30 mg 1-13 le} capsule by ity of capsule 00:00: mouth [place] 00 daily. Medical Branch ALPRAZolam 2019-06 Yes 1{tbl} Take 1 Uni vers 0.5 mg 1-13 tablet by ity of tablet 00:00: mouth as [place] 00 needed. Medical Branch DULoxetine 2019-06 Yes 1{capsu Take 1 Un chase 30 mg 1-13 le} capsule by ity of capsule 00:00: mouth [place] 00 daily. Medical Branch ALPRAZolam 2019-06 Yes 1{tbl} Take 1 Uni vers 0.5 mg 1-13 tablet by ity of tablet 00:00: mouth as [place] 00 needed. Medical Branch DULoxetine 2019-06 Yes 1{capsu Take 1 Un chase 30 mg 1-13 le} capsule by ity of capsule 00:00: mouth [place] 00 daily. Medical Branch ALPRAZolam 2019-06 Yes 1{tbl} Take 1 Uni vers 0.5 mg 1-13 tablet by ity of tablet 00:00: mouth as [place] 00 needed. Medical Branch DULoxetine 2019-06 Yes 1{capsu Take 1 Un chase 30 mg 1-13 le} capsule by ity of capsule 00:00: mouth [place] 00 daily. Medical Branch ALPRAZolam 2019-06 Yes 1{tbl} Take 1 Uni vers 0.5 mg 1-13 tablet by ity of tablet 00:00: mouth 2 [place] (two) Medical times Branch daily. DULoxetine 2019-06 Yes 1{capsu Take 1 Un chase 30 mg 1-13 le} capsule by ity of capsule 00:00: mouth [place] 00 daily. Medical Branch ALPRAZolam 2019-06 Yes 1{tbl} Take 1 Uni vers 0.5 mg 1-13 tablet by ity of tablet 00:00: mouth 2 (two) Medical times Branch daily. DULoxetine 2019-06 Yes 1{capsu Take 1 Un chase 30 mg 1-13 le} capsule by ity of capsule 00:00: mouth [place] 00 daily. Medical Branch ALPRAZolam 2019-06 Yes 1{tbl} Take 1 Uni vers 0.5 mg 1-13 tablet by ity of tablet 00:00: mouth 2 (two) Medical times Branch daily. DULoxetine 2019-06 Yes 1{capsu Take 1 Un chase 30 mg 1-13 le} capsule by ity of capsule 00:00: mouth [place] 00 daily. Medical Branch ALPRAZolam 2019-06 Yes 1{tbl} Take 1 Uni vers 0.5 mg 1-13 tablet by ity of tablet 00:00: mouth 2 (two) Medical times Branch daily. DULoxetine 2019-06 Yes 1{capsu Take 1 Un chase 30 mg 1-13 le} capsule by ity of capsule 00:00: mouth [place] 00 daily. Medical Branch ALPRAZolam 2019-06 Yes 1{tbl} Take 1 Uni vers 0.5 mg 1-13 tablet by ity of tablet 00:00: mouth 2 (two) Medical times Branch daily. DULoxetine 2019-06 Yes 1{capsu Take 1 Un chase 30 mg 1-13 le} capsule by ity of capsule 00:00: mouth [place] 00 daily. Medical Branch ALPRAZolam 2019-06 Yes 1{tbl} Take 1 Uni vers 0.5 mg 1-13 tablet by ity of tablet 00:00: mouth 2 (two) Medical times Branch daily. DULoxetine 2019-06 Yes 1{capsu Take 1 Un chase 30 mg 1-13 le} capsule by ity of capsule 00:00: mouth [place] 00 daily. Medical Branch ALPRAZolam 2019-06 Yes 1{tbl} Take 1 Uni vers 0.5 mg 1-13 tablet by ity of tablet 00:00: mouth 2 (two) Medical times Branch daily. DULoxetine 2019-06 Yes 1{capsu Take 1 Un chase 30 mg 1-13 le} capsule by ity of capsule 00:00: mouth [place] 00 daily. Medical Branch ALPRAZolam 2019-06 Yes 1{tbl} Take 1 Uni vers 0.5 mg 1-13 tablet by ity of tablet 00:00: mouth 2 (two) Medical times Branch daily. DULoxetine 2019-06 Yes 1{capsu Take 1 Un chase 30 mg 1-13 le} capsule by ity of capsule 00:00: mouth [place] 00 daily. Medical Branch ALPRAZolam 2019-06 Yes 1{tbl} Take 1 Uni vers 0.5 mg 1-13 tablet by ity of tablet 00:00: mouth 2 (two) Medical times Branch daily. DULoxetine 2019-06 Yes 1{capsu Take 1 Un chase 30 mg 1-13 le} capsule by ity of capsule 00:00: mouth [place] 00 daily. Medical Branch ALPRAZolam 2019-06 Yes 1{tbl} Take 1 Uni vers 0.5 mg 1-13 tablet by ity of tablet 00:00: mouth 2 (two) Medical times Branch daily. DULoxetine 2019-06 Yes 1{capsu Take 1 Un chase 30 mg 1-13 le} capsule by ity of capsule 00:00: mouth [place] 00 daily. Medical Branch ALPRAZolam 2019-06 Yes 1{tbl} Take 1 Uni vers 0.5 mg 1-13 tablet by ity of tablet 00:00: mouth 2 (two) Medical times Branch daily. DULoxetine 2019-06 Yes 1{capsu Take 1 Un chase 30 mg 1-13 le} capsule by ity of capsule 00:00: mouth 00 daily. Medical Branch ALPRAZolam 2019- Yes 1{tbl} Take 1 Uni vers 0.5 mg 1-13 tablet by ity of tablet 00:00: mouth 2 (two) Medical times Branch daily. busPIRone 2019- Yes 1{tbl} Take 1 Univ ers 10 mg 0-28 tablet by ity of tablet 00:00: mouth 2 (two) Medical times Branch daily. busPIRone 2019- Yes 1{tbl} Take 1 Univ ers 10 mg 0-28 tablet by ity of tablet 00:00: mouth 2 (two) Medical times Branch daily. busPIRone 2019- Yes 1{tbl} Take 1 Univ ers 10 mg 0-28 tablet by ity of tablet 00:00: mouth (two) Medical times Branch daily. busPIRone 2019- Yes 1{tbl} Take 1 Univ ers 10 mg 0-28 tablet by ity of tablet 00:00: mouth (two) Medical times Branch daily. busPIRone 2019- Yes 1{tbl} Take 1 Univ ers 10 mg 0-28 tablet by ity of tablet 00:00: mouth (two) Medical times Branch daily. busPIRone 2019- Yes 1{tbl} Take 1 Univ ers 10 mg 0-28 tablet by ity of tablet 00:00: mouth (two) Medical times Branch daily. busPIRone 2019- Yes 1{tbl} Take 1 Univ ers 10 mg 0-28 tablet by ity of tablet 00:00: mouth (two) Medical times Branch daily. busPIRone 2019- Yes 1{tbl} Take 1 Univ ers 10 mg 0-28 tablet by ity of tablet 00:00: mouth 2 (two) Medical times Branch daily. busPIRone 2019- Yes 1{tbl} Take 1 Univ ers 10 mg 0-28 tablet by ity of tablet 00:00: mouth 2 (two) Medical times Branch daily. busPIRone 2019- Yes 1{tbl} Take 1 Univ ers 10 mg 0-28 tablet by ity of tablet 00:00: mouth 2 (two) Medical times Branch daily. busPIRone 2020- Yes 1{tbl} Take 1 Univ ers 10 mg 0-28 tablet by ity of tablet 00:00: mouth 2 (two) Medical times Branch daily. busPIRone 2020- Yes 1{tbl} Take 1 Univ ers 10 mg 0-28 tablet by ity of tablet 00:00: mouth 2 (two) Medical times Branch daily. busPIRone 2020- Yes 1{tbl} Take 1 Univ ers 10 mg 0-28 tablet by ity of tablet 00:00: mouth 2 (two) Medical times Branch daily. busPIRone 2020- Yes 1{tbl} Take 1 Univ ers 10 mg 0-28 tablet by ity of tablet 00:00: mouth (two) Medical times Branch daily. busPIRone 2020- Yes 1{tbl} Take 1 Univ ers 10 mg 0-28 tablet by ity of tablet 00:00: mouth (two) Medical times Branch daily. BANOPHEN 25 2019-06 Yes 1{capsu Take 1 U nivers mg capsule 0-12 le} capsule by ity of 00:00: mouth 00 daily. Medical Branch famotidine 2019-06 Yes 20mg Take 20 mg U nivers 20 mg 0-12 by mouth ity of tablet 00:00: daily. Medical Branch BANOPHEN 25 2019-06 Yes 1{capsu Take 1 U nivers mg capsule 0-12 le} capsule by ity of 00:00: mouth daily. Medical Branch famotidine 2019-06 Yes 20mg Take 20 mg U nivers 20 mg 0-12 by mouth ity of tablet 00:00: daily. Medical Branch BANOPHEN 25 2019-06 Yes 1{capsu Take 1 U nivers mg capsule 0-12 le} capsule by ity of 00:00: mouth daily. Medical Branch famotidine 2019-06 Yes 20mg Take 20 mg U nivers 20 mg 0-12 by mouth ity of tablet 00:00: daily. Medical Branch BANOPHEN 25 2019-06 Yes 1{capsu Take 1 U nivers mg capsule 0-12 le} capsule by ity of 00:00: mouth 00 every 4 Medical (four) Branch hours as needed for Itching or Allergies. BANOPHEN 25 2019-06 Yes 1{capsu Take 1 U nivers mg capsule 0-12 le} capsule by ity of 00:00: mouth [place] 00 every 4 Medical (four) Branch hours as needed for Itching or Allergies. BANOPHEN 25 2019-06 Yes 1{capsu Take 1 U nivers mg capsule 0-12 le} capsule by ity of 00:00: mouth [place] 00 every 4 Medical (four) Branch hours as needed for Itching or Allergies. BANOPHEN 25 2019-06 Yes 1{capsu Take 1 U nivers mg capsule 0-12 le} capsule by ity of 00:00: mouth [place] 00 every 4 Medical (four) Branch hours as needed for Itching or Allergies. BANOPHEN 25 2019-06 Yes 1{capsu Take 1 U nivers mg capsule 0-12 le} capsule by ity of 00:00: mouth [place] 00 every 4 Medical (four) Branch hours as needed for Itching or Allergies. BANOPHEN 25 2019-06 Yes 1{capsu Take 1 U nivers mg capsule 0-12 le} capsule by ity of 00:00: mouth [place] 00 every 4 Medical (four) Branch hours as needed for Itching or Allergies. BANOPHEN 25 2019-06 Yes 1{capsu Take 1 U nivers mg capsule 0-12 le} capsule by ity of 00:00: mouth [place] 00 every 4 Medical (four) Branch hours as needed for Itching or Allergies. BANOPHEN 25 2019-06 Yes 1{capsu Take 1 U nivers mg capsule 0-12 le} capsule by ity of 00:00: mouth [place] 00 every 4 Medical (four) Branch hours as needed for Itching or Allergies. BANOPHEN 2019-06 Yes 1{capsu Take 1 U nivers mg capsule 0-12 le} capsule by ity of 00:00: mouth [place] 00 every 4 Medical (four) Branch hours as needed for Itching or Allergies. BANOPHEN 25 2019-06 Yes 1{capsu Take 1 U nivers mg capsule 0-12 le} capsule by ity of 00:00: mouth [place] 00 every 4 Medical (four) Branch hours as needed for Itching or Allergies. BANOPHEN 25 2019-06 Yes 1{capsu Take 1 U nivers mg capsule 0-12 le} capsule by ity of 00:00: mouth [place] 00 every 4 Medical (four) Branch hours as needed for Itching or Allergies. BANOPHEN 25 2019-06 Yes 1{capsu Take 1 U nivers mg capsule 0-12 le} capsule by ity of 00:00: mouth [place] 00 every 4 Medical (four) Branch hours as needed for Itching or Allergies. famotidine 2019-06- No 20mg Take 20 mg Univers 20 mg 0-12 - by mouth ity of tablet 00:00: 00:00 daily. 00 :00 Medical Branch famotidine 2019-06- No 20mg Take 20 mg Univers 20 mg 012 05-24 by mouth ity of tablet 00:00: 00:00 daily. 00 :00 Medical Branch traZODone 2019-06 Yes 1{tbl} Take 1 Univ ers 100 mg 0-05 tablet by ity of tablet 00:00: mouth at [place] [address] bedtime. Medical Branch traZODone 2019-06 Yes 1{tbl} Take 1 Univ ers 100 mg 0-05 tablet by ity of tablet 00:00: mouth at [place] [address] bedtime. Medical Branch traZODone 2019-06 Yes 1{tbl} Take 1 Univ ers 100 mg 0-05 tablet by ity of tablet 00:00: mouth at [place] [address] bedtime. Medical Branch traZODone 2019-06 Yes 1{tbl} Take 1 Univ ers 100 mg 0-05 tablet by ity of tablet 00:00: mouth at [place] [address] bedtime. Medical Branch traZODone 2019-06 Yes 1{tbl} Take 1 Univ ers 100 mg 0-05 tablet by ity of tablet 00:00: mouth at [place] [address] bedtime. Medical Branch traZODone 2019-06 Yes 1{tbl} Take 1 Univ ers 100 mg 0-05 tablet by ity of tablet 00:00: mouth at [place] [address] bedtime. Medical Branch traZODone 2019-06 Yes 1{tbl} Take 1 Univ ers 100 mg 0-05 tablet by ity of tablet 00:00: mouth at [place] [address] bedtime. Medical Branch traZODone 2019-06 Yes 1{tbl} Take 1 Univ ers 100 mg 0-05 tablet by ity of tablet 00:00: mouth at [place] [address] bedtime. Medical Branch traZODone 2019-06 Yes 1{tbl} Take 1 Univ ers 100 mg 0-05 tablet by ity of tablet 00:00: mouth at [place] [address] bedtime. Medical Branch traZODone 2020-1 Yes 1{tbl} Take 1 Univ ers 100 mg 0-05 tablet by ity of tablet 00:00: mouth at [place] bedtime. Medical Branch traZODone 2020-1 Yes 1{tbl} Take 1 Univ ers 100 mg 0-05 tablet by ity of tablet 00:00: mouth at [place] 00 bedtime. Medical Branch traZODone 2019-1 Yes 1{tbl} Take 1 Univ ers 100 mg 0-05 tablet by ity of tablet 00:00: mouth at [place] 00 bedtime. Medical Branch traZODone 2019-1 Yes 1{tbl} Take 1 Univ ers 100 mg 0-05 tablet by ity of tablet 00:00: mouth at [place] bedtime. Medical Branch traZODone 2019-1 Yes 1{tbl} Take 1 Univ ers 100 mg 0-05 tablet by ity of tablet 00:00: mouth at [place] 00 bedtime. Medical Branch traZODone 2019-1 Yes 1{tbl} Take 1 Univ ers 100 mg 0-05 tablet by ity of tablet 00:00: mouth at [place] [address] bedtime. Medical Branch fluticasone 2020-0 Yes 50{spra Use 50 U nivers propionate 9-27 y} Sprays in ity of 50 00:00: each [place] mcg/actuati 00 nostril 2 Med ical on nasal (two) Branch spray times daily. fluticasone 2020-0 Yes 50{spra Use 50 U nivers propionate 9-27 y} Sprays in ity of 50 00:00: each [place] mcg/actuati 00 nostril 2 Med ical on nasal (two) Branch spray times daily. fluticasone 2020-0 Yes 50{spra Use 50 U nivers propionate 9-27 y} Sprays in ity of 50 00:00: each [place] mcg/actuati 00 nostril 2 Med ical on nasal (two) Branch spray times daily. fluticasone 2020-0 Yes 50{spra Use 50 U nivers propionate 9-27 y} Sprays in ity of 50 00:00: each [place] mcg/actuati 00 nostril 2 Med ical on nasal (two) Branch spray times daily. fluticasone 2020-0 Yes 50{spra Use 50 U nivers propionate 9-27 y} Sprays in ity of 50 00:00: each [place] mcg/actuati 00 nostril 2 Med ical on nasal (two) Branch spray times daily. fluticasone 2020-0 Yes 50{spra Use 50 U nivers propionate 9-27 y} Sprays in ity of 50 00:00: each [place] mcg/actuati 00 nostril 2 Med ical on nasal (two) Branch spray times daily. fluticasone 2020-0 Yes 50{spra Use 50 U nivers propionate 9-27 y} Sprays in ity of 50 00:00: each [place] mcg/actuati 00 nostril 2 Med ical on nasal (two) Branch spray times daily. fluticasone 2020-0 Yes 50{spra Use 50 U nivers propionate 9-27 y} Sprays in ity of 50 00:00: each [place] mcg/actuati 00 nostril 2 Med ical on nasal (two) Branch spray times daily. fluticasone 2020-0 Yes 50{spra Use 50 U nivers propionate 9-27 y} Sprays in ity of 50 00:00: each [place] mcg/actuati 00 nostril 2 Med ical on nasal (two) Branch spray times daily. fluticasone 2020-0 Yes 50{spra Use 50 U nivers propionate 9-27 y} Sprays in ity of 50 00:00: each [place] mcg/actuati 00 nostril 2 Med ical on nasal (two) Branch spray times daily. fluticasone 2020-0 Yes 50{spra Use 50 U nivers propionate 9-27 y} Sprays in ity of 50 00:00: each [place] mcg/actuati 00 nostril 2 Med ical on nasal (two) Branch spray times daily. fluticasone 2020-0 Yes 50{spra Use 50 U nivers propionate 9-27 y} Sprays in ity of 50 00:00: each [place] mcg/actuati 00 nostril 2 Med ical on nasal (two) Branch spray times daily. fluticasone 2020-0 Yes 50{spra Use 50 U nivers propionate 9-27 y} Sprays in ity of 50 00:00: each [place] mcg/actuati 00 nostril 2 Med ical on nasal (two) Branch spray times daily. fluticasone 2020-0 Yes 50{spra Use 50 U nivers propionate 9-27 y} Sprays in ity of 50 00:00: each [place] mcg/actuati 00 nostril 2 Med ical on nasal (two) Branch spray times daily. fluticasone 2020-0 Yes 50{spra Use 50 U nivers propionate 9-27 y} Sprays in ity of 50 00:00: each [place] mcg/actuati 00 nostril 2 Med ical on nasal (two) Branch spray times daily. ibuprofen Yes 600mg Take 1 Unive rs 600 mg 6-26 tablet by ity of tablet 00:00: mouth [place] 00 every 6 Medical (six) Branch hours as needed for Pain (scale 1-3), Pain (scale 4-6) or Pain (scale 1-3) with oral narcotics. ibuprofen Yes 600mg Take 1 Unive rs 600 mg 6-26 tablet by ity of tablet 00:00: mouth [place] 00 every 6 Medical (six) Branch hours as needed for Pain (scale 1-3), Pain (scale 4-6) or Pain (scale 1-3) with oral narcotics. ibuprofen 2020- No 600mg Take 1 Univ ers 600 mg 6-26 11-19 tablet by ity of tablet 00:00: 00:00 mouth [place] 00 :00 every 6 Medical (six) Branch hours as needed for Pain (scale 1-3), Pain (scale 4-6) or Pain (scale 1-3) with oral narcotics. ibuprofen 2020- No 600mg Take 1 Univ ers 600 mg 6-26 11-19 tablet by ity of tablet 00:00: 00:00 mouth [place] 00 :00 every 6 Medical (six) Branch hours as needed for Pain (scale 1-3), Pain (scale 4-6) or Pain (scale 1-3) with oral narcotics. ibuprofen 2020- No 600mg Take 1 Univ ers 600 mg 6-26 11-19 tablet by ity of tablet 00:00: 00:00 mouth [place] 00 :00 every 6 Medical (six) Branch hours as needed for Pain (scale 1-3), Pain (scale 4-6) or Pain (scale 1-3) with oral narcotics. lamoTRIgine Yes 150mg Take 150 U nivers (LAMICTAL) 6-12 mg by ity of 150 mg 16:22: mouth [place] tablet 38 daily. Medical Branch ALPRAZOLAM Yes 1mg Take 1 mg Un chase (XANAX 6-12 by mouth ity of ORAL) 16:22: as needed. [address] Branch lamoTRIgine Yes 150mg Take 150 U nivers (LAMICTAL) 6-12 mg by ity of 150 mg 16:22: mouth [place] tablet 38 daily. [facility] Branch ALPRAZOLAM Yes 1mg Take 1 mg Un chase (XANAX 6-12 by mouth ity of ORAL) 16:22: as needed. [address] Branch Polyethylen Yes Take 1 Univ ers e Glycol 5-22 packet ity of 3350 00:00: dissolved [place] (MIRALAX) 00 in 4-8 Medical 17 gram ounces Branch powder beverage. Polyethylen Yes Take 1 Univ ers e Glycol 5-22 packet ity of 3350 00:00: dissolved [place] (MIRALAX) 00 in 4-8 Medical 17 gram ounces Branch powder beverage. Polyethylen 2020- No Take 1 Uni vers e Glycol 5-22 11-19 packet ity of 3350 00:00: 00:00 dissolved [place] (MIRALAX) 00 :00 in 4-8 Medical 17 gram ounces Branch powder beverage. Polyethylen 2019- No Take 1 Uni vers e Glycol 5-22 11-19 packet ity of 3350 00:00: 00:00 dissolved [place] (MIRALAX) 00 :00 in 4-8 Medical 17 gram ounces Branch powder beverage. Polyethylen 2020- No Take 1 Uni vers e Glycol 5-22 11-19 packet ity of 3350 00:00: 00:00 dissolved [place] (MIRALAX) 00 :00 in 4-8 Medical 17 gram ounces Branch powder beverage. HYDROcodone Yes 1{tbl} Take 1 Un chase -acetaminop 5-17 tablet by ity of hen 5-325 00:00: mouth [place] mg tablet 00 every 6 Medical (six) Branch hours as needed for Pain (scale 4-6). HYDROcodone Yes 1{tbl} Take 1 Un chase -acetaminop 5-17 tablet by ity of hen 5-325 00:00: mouth [place] mg tablet 00 every 6 Medical (six) Branch hours as needed for Pain (scale 4-6). HYDROcodone 2019- No 1{tbl} Take 1 U nivers -acetaminop 5-17 11-19 tablet by it y of hen 5-325 00:00: 00:00 mouth [place] mg tablet 00 :00 every 6 Medical (six) Branch hours as needed for Pain (scale 4-6). HYDROcodone 2019- No 1{tbl} Take 1 U nivers -acetaminop 5-17 11-19 tablet by it y of hen 5-325 00:00: 00:00 mouth [place] mg tablet 00 :00 every 6 Medical (six) Branch hours as needed for Pain (scale 4-6). HYDROcodone 2019- No 1{tbl} Take 1 U nivers -acetaminop 5-17 11-19 tablet by it y of hen 5-325 00:00: 00:00 mouth [place] mg tablet 00 :00 every 6 Medical (six) Branch hours as needed for Pain (scale 4-6). docusate 2018-0 Yes 100mg Take 1 Univer s 100 mg 5-06 capsule by ity of capsule 00:00: mouth 2 [place] 00 (two) Medical times Branch daily as needed for Constipati on. ibuprofen 2017-0 Yes 600mg Take 1 Unive rs 600 mg 5-06 tablet by ity of tablet 00:00: mouth [place] 00 every 6 Medical (six) Branch hours as needed for Alternate with [place] for pain scale 4-6. docusate 2018-0 Yes 100mg Take 1 Univer s 100 mg 5-06 capsule by ity of capsule 00:00: mouth 2 [place] 00 (two) Medical times Branch daily as needed for Constipati on. ibuprofen 2018-0 Yes 600mg Take 1 Unive rs 600 mg 5-06 tablet by ity of tablet 00:00: mouth [place] 00 every 6 Medical (six) Branch hours as needed for Alternate with [place] for pain scale 4-6. docusate 2017- 2020- No 100mg Take 1 Unive rs 100 mg 5-06 11-19 capsule by ity of capsule 00:00: 00:00 mouth 2 [place] 00 :00 (two) Medical times Branch daily as needed for Constipati on. ibuprofen 2020- No 600mg Take 1 Univ ers 600 mg 10-27 tablet by ity of tablet 00:00: 00:00 mouth [place] 00 :00 every 6 Medical (six) Branch hours as needed for Alternate with [place] for pain scale 4-6. docusate 2020- No 100mg Take 1 Unive rs 100 mg 10-27 capsule by ity of capsule 00:00: 00:00 mouth 2 [place] 00 :00 (two) Medical times Branch daily as needed for Constipati on. ibuprofen 2020- No 600mg Take 1 Univ ers 600 mg 10-27 tablet by ity of tablet 00:00: 00:00 mouth [place] 00 :00 every 6 Medical (six) Branch hours as needed for Alternate with [place] for pain scale 4-6. docusate 2020- No 100mg Take 1 Unive rs 100 mg 10-27 capsule by ity of capsule 00:00: 00:00 mouth 2 [place] 00 :00 (two) Medical times Branch daily as needed for Constipati on. ibuprofen 2020- No 600mg Take 1 Univ ers 600 mg 10-27 tablet by ity of tablet 00:00: 00:00 mouth [place] 00 :00 every 6 Medical (six) Branch hours as needed for Alternate with [place] for pain scale 4-6. citalopram Yes 40mg Take 1 Unive rs 40 mg 1-27 tablet by ity of tablet 00:00: mouth [place] 00 daily. Medical Branch citalopram Yes 40mg Take 1 Unive rs 40 mg 1-27 tablet by ity of tablet 00:00: mouth [place] 00 daily. Medical Branch citalopram 2017-0 2020- No 40mg Take 1 Univ ers 40 mg 1-27 11-19 tablet by ity of tablet 00:00: 00:00 mouth [place] 00 :00 daily. Medical Branch citalopram 2020- No 40mg Take 1 Univ ers 40 mg 1-27 11-19 tablet by ity of tablet 00:00: 00:00 mouth [place] 00 :00 daily. Medical Branch citalopram 2018-0 2020- No 40mg Take 1 Univ ers 40 mg 1-20 05- tablet by ity of tablet 00:00: 00:00 mouth [place] 00 :00 daily. Medical Branch clonazePAM 2018-0 Yes .25mg Take 0.5 Un chsae 0.5 mg 1-26 tablets by ity of tablet 00:00: mouth 2 [place] 00 (two) Medical times Branch daily. hydrOXYzine 2018-0 Yes 25mg Take 1 Univ ers 25 mg 1-26 tablet by ity of tablet 00:00: mouth [place] 00 every 6 Medical (six) Branch hours as needed for Anxiety. traZODONE 2018-0 Yes 50mg Take 1 Univer s 50 mg 1-26 tablet by ity of tablet 00:00: mouth at [place] 00 bedtime as Medical needed for Branch Insomnia. melatonin 3 2017-0 Yes 3mg Take 1 Univ ers mg tablet 1-26 tablet by ity o f 00:00: mouth at [place] 00 bedtime. Medical Branch clonazePAM 2018-0 Yes .25mg Take 0.5 Un chase 0.5 mg 1-26 tablets by ity of tablet 00:00: mouth 2 [place] 00 (two) Medical times Branch daily. hydrOXYzine 2018-0 Yes 25mg Take 1 Univ ers 25 mg 1-26 tablet by ity of tablet 00:00: mouth [place] 00 every 6 Medical (six) Branch hours as needed for Anxiety. traZODONE 2018-0 Yes 50mg Take 1 Univer s 50 mg 1-26 tablet by ity of tablet 00:00: mouth at [place] 00 bedtime as Medical needed for Branch Insomnia. melatonin 3 2018-0 Yes 3mg Take 1 Univ ers mg tablet 1-26 tablet by ity o f 00:00: mouth at [place] 00 bedtime. Medical Branch clonazePAM 2018-0 2020- No .25mg Take 0.5 U nivers 0.5 mg 1-26 -19 tablets by ity of tablet 00:00: 00:00 mouth 2 [place] 00 :00 (two) Medical times Branch daily. hydrOXYzine 2018-0 2020- No 25mg Take 1 Uni vers 25 mg 1-26 -19 tablet by ity of tablet 00:00: 00:00 mouth [place] 00 :00 every 6 Medical (six) Branch hours as needed for Anxiety. traZODONE 2018-0 2020- No 50mg Take 1 Unive rs 50 mg 1-26 - tablet by ity of tablet 00:00: 00:00 mouth at [place] 00 :00 bedtime as Medical needed for Branch Insomnia. melatonin 3 2020- No 3mg Take 1 Uni vers mg tablet 07-19 tablet by ity of 00:00: 00:00 mouth at [place] 00 :00 bedtime. Medical Branch clonazePAM 2020- No .25mg Take 0.5 U nivers 0.5 mg 07-19- tablets by ity of tablet 00:00: 00:00 mouth 2 [place] 00 :00 (two) Medical times Branch daily. hydrOXYzine 2020- No 25mg Take 1 Uni vers 25 mg 07-19- tablet by ity of tablet 00:00: 00:00 mouth [place] 00 :00 every 6 Medical (six) Branch hours as needed for Anxiety. traZODONE 2020- No 50mg Take 1 Unive rs 50 mg 07-19- tablet by ity of tablet 00:00: 00:00 mouth at [place] 00 :00 bedtime as Medical needed for Branch Insomnia. melatonin 3 2020- No 3mg Take 1 Uni vers mg tablet 07-19 tablet by ity of 00:00: 00:00 mouth at [place] 00 :00 bedtime. Medical Branch clonazePAM 2020- No .25mg Take 0.5 U nivers 0.5 mg 07-19- tablets by ity of tablet 00:00: 00:00 mouth 2 [place] 00 :00 (two) Medical times Branch daily. hydrOXYzine 2020- No 25mg Take 1 Uni vers 25 mg 07-19- tablet by ity of tablet 00:00: 00:00 mouth [place] 00 :00 every 6 Medical (six) Branch hours as needed for Anxiety. traZODONE 2020- No 50mg Take 1 Unive rs 50 mg 07-19- tablet by ity of tablet 00:00: 00:00 mouth at [place] 00 :00 bedtime as Medical needed for Branch Insomnia. melatonin 3 2020- No 3mg Take 1 Uni vers mg tablet 07-19- tablet by ity of 00:00: 00:00 mouth at [place] 00 :00 bedtime. Medical Branch omeprazole 2015-0 Yes 1{capsu Take 1 Un chase 40 mg 4-15 le} capsule by ity of capsule 00:00: mouth [place] 00 daily. Medical Branch omeprazole 2016-0 Yes 1{capsu Take 1 Un chase 40 mg 4-15 le} capsule by ity of capsule 00:00: mouth [place] 00 daily. Medical Branch omeprazole 2016-0 Yes 1{capsu Take 1 Un chase 40 mg 4-15 le} capsule by ity of capsule 00:00: mouth [place] 00 daily. Medical Branch omeprazole 2016-0 Yes 1{capsu Take 1 Un chase 40 mg 4-15 le} capsule by ity of capsule 00:00: mouth [place] 00 daily. Medical Branch omeprazole 2016-0 Yes 1{capsu Take 1 Un chase 40 mg 4-15 le} capsule by ity of capsule 00:00: mouth [place] 00 daily. Medical Branch omeprazole 2016-0 Yes 1{capsu Take 1 Un chase 40 mg 4-15 le} capsule by ity of capsule 00:00: mouth [place] 00 daily. Medical Branch omeprazole 2016-0 Yes 1{capsu Take 1 Un chase 40 mg 4-15 le} capsule by ity of capsule 00:00: mouth [place] 00 daily. Medical Branch omeprazole 2016-0 Yes 1{capsu Take 1 Un chase 40 mg 4-15 le} capsule by ity of capsule 00:00: mouth [place] 00 daily. Medical Branch omeprazole 2016-0 Yes 1{capsu Take 1 Un chase 40 mg 4-15 le} capsule by ity of capsule 00:00: mouth [place] 00 daily. Medical Branch omeprazole 2016-0 Yes 1{capsu Take 1 Un chase 40 mg 4-15 le} capsule by ity of capsule 00:00: mouth [place] 00 daily. Medical Branch omeprazole 2016-0 Yes 1{capsu Take 1 Un chase 40 mg 4-15 le} capsule by ity of capsule 00:00: mouth [place] 00 daily. Medical Branch omeprazole 2016-0 Yes 1{capsu Take 1 Un chase 40 mg 4-15 le} capsule by ity of capsule 00:00: mouth [place] 00 daily. Medical Branch omeprazole 2016-0 Yes 1{capsu Take 1 Un chase 40 mg 4-15 le} capsule by ity of capsule 00:00: mouth [place] 00 daily. Medical Branch omeprazole 2016-0 Yes 1{capsu Take 1 Un chase 40 mg 4-15 le} capsule by ity of capsule 00:00: mouth [place] 00 daily. [facility] omeprazole 2016-0 Yes 1{capsu Take 1 Un chase 40 mg 4-15 le} capsule by ity of capsule 00:00: mouth 00 daily. [facility] Immunizations Ordered Filled Immunization Date Status Comments [facility] e Immunization Name Name SARS-COV-2 COVID-19 2020-10-03 Completed Unive rsity of PFIZER VACCINE 00:00:00 [facility] SARS-COV-2 COVID-19 2020-10-03 Completed Unive rsity of PFIZER VACCINE 00:00:00 [facility] SARS-COV-2 COVID-19 2020-10-03 Completed Unive rsity of PFIZER VACCINE 00:00:00 [facility] SARS-COV-2 COVID-19 2020-09-12 Completed Unive rsity of PFIZER VACCINE 00:00:00 [facility] SARS-COV-2 COVID-19 2020-09-12 Completed Unive rsity of PFIZER VACCINE 00:00:00 [facility] SARS-COV-2 COVID-19 2020-09-12 Completed Unive rsity of PFIZER VACCINE 00:00:00 [facility] SARS-COV-2 COVID-19 2020-09-12 Completed Unive rsity of PFIZER VACCINE 00:00:00 [facility] Influenza Virus 2010-08-27 Completed Universit y of Vaccine 00:00:00 [facility] Influenza Virus 2010-08-27 Completed Universit y of Vaccine 00:00:00 [facility] Influenza Virus 2010-08-27 Completed Universit y of Vaccine 00:00:00 [facility] Influenza Virus 2010-08-27 Completed Universit y of Vaccine 00:00:00 [facility] Influenza Virus 2010-08-27 Completed Universit y of Vaccine 00:00:00 [facility] Influenza Virus 2010-08-27 Completed Universit y of Vaccine 00:00:00 [facility] Influenza Virus 2010-08-27 Completed Universit y of Vaccine 00:00:00 [facility] Influenza Virus 2010-08-27 Completed Universit y of Vaccine 00:00:00 [facility] Influenza Virus 2010-08-27 Completed Universit y of Vaccine 00:00:00 [facility] Influenza Virus 2010-08-27 Completed Universit y of Vaccine 00:00:00 [facility] Influenza Virus 2010-08-27 Completed Universit y of Vaccine 00:00:00 [facility] Influenza Virus 2010-08-27 Completed Universit y of Vaccine 00:00:00 [facility] Influenza Virus 2010-08-27 Completed Universit y of Vaccine 00:00:00 [facility] Influenza Virus 2010-08-27 Completed Universit y of Vaccine 00:00:00 [facility] Influenza Virus 2010-08-27 Completed Universit y of Vaccine 00:00:00 [facility] Influenza Virus 2010-08-27 Completed Universit y of Vaccine 00:00:00 [facility] Influenza Virus 2010-08-27 Completed Universit y of Vaccine 00:00:00 [facility] Influenza Virus 2010-08-27 Completed Universit y of Vaccine 00:00:00 [facility] Influenza Virus 2010-08-27 Completed Universit y of Vaccine 00:00:00 [facility] Influenza Virus 2010-08-27 Completed Universit y of Vaccine 00:00:00 [facility] Influenza Virus 2010-08-27 Completed Universit y of Vaccine 00:00:00 [facility] Influenza Virus 2010-08-27 Completed Universit y of Vaccine 00:00:00 [facility] Vital Signs Vital Name Observation Time Observation Value Comments Source Systolic blood 2021-05-01 150 mm[Hg] University of pressure 23:42:00 [facility] Diastolic blood 2021-05-01 80 mm[Hg] [place] o f pressure 23:42:00 [facility] Heart rate 2021-05-01 74 /min University of 23:38:00 [facility] Body temperature 2021-05-01 36.33 Mariam University of 23:38:00 [facility] Respiratory rate 2021-05-01 20 /min University of 23:38:00 [facility] Body weight 2021-05-01 109.408 kg University of 23:38:00 [facility] BMI 2021-05-01 37.78 kg/m2 University of 23:38:00 [facility] Oxygen saturation 2021-05-01 98 /min [facility] in Arterial blood 23:38:00 [facility] Pulse oximetry [place] Systolic blood 2020-06-28 157 mm[Hg] University of pressure 16:49:00 [facility] Diastolic blood 2020-06-28 90 mm[Hg] University o f pressure 16:49:00 [facility] Heart rate 2020-06-28 67 /min University of 16:46:00 [facility] Body temperature 2020-06-28 36.5 Mariam University of 16:46:00 [facility] Respiratory rate 2020-06-28 12 /min University of 16:46:00 [facility] Body height 2020-06-28 170.2 cm University of 16:46:00 [facility] Body weight 2020-06-28 106.913 kg University of 16:46:00 [facility] BMI 2020-06-28 36.92 kg/m2 University of 16:46:00 [facility] Oxygen saturation 2020-06-28 97 /min University of in Arterial blood 16:46:00 [place] [facility] by Pulse oximetry Branch Systolic blood 2020-05-24 161 mm[Hg] Pt states she University o f pressure 20:15:00 is nervous [facility] Diastolic blood 2020-05-24 84 mm[Hg] Pt states she University of pressure 20:15:00 is nervous [facility] Heart rate 2020-05-24 56 /min University of 20:15:00 [facility] Body temperature 2020-05-24 36.5 [place]am University of 20:15:00 [facility] Respiratory rate 2020-05-24 18 /min University of 20:15:00 [facility] Body height 2020-05-24 170.2 cm University of 20:15:00 [facility] Body weight 2020-05-24 108.274 kg University of 20:15:00 [facility] BMI 2020-05-24 37.39 kg/m2 University of 20:15:00 [facility] Oxygen saturation 2020-05-24 97 /min University of in Arterial blood 20:15:00 [place] [facility]i cris[facility] by Pulse oximetry Branch Systolic blood 2020-05-12 129 mm[Hg] University of pressure 16:05:00 [facility] Branch Diastolic blood 2020-05-12 73 mm[Hg] University o f pressure 16:05:00 [facility] Heart rate 2020-05-12 67 /min University of 16:05:00 [facility] Body temperature 2020-05-12 36.22 Mariam University of 16:05:00 [facility] Body weight 2020-05-12 107.502 kg University of 16:05:00 [facility] BMI 2020-05-12 37.12 kg/m2 University 16:05:00 [facility] Oxygen saturation 2020-05-12 97 /min [facility] in Arterial blood 16:05:00 [facility] crispin by Pulse oximetry Branch Systolic blood 2020-05-12 129 mm[Hg] University of pressure 16:05:00 [facility] Diastolic blood 2020-05-12 73 mm[Hg] [facility] o f pressure 16:05:00 [facility] Heart rate 2020-05-12 67 /min [facility] 16:05:00 [facility] Body temperature 2020-05-12 36.22 Mariam [facility] 16:05:00 [facility] Body weight 2020-05-12 107.502 kg [facility] 16:05:00 [facility] BMI 2020-05-12 37.12 kg/m2 [facility] 16:05:00 [facility] Oxygen saturation 2020-05-12 97 /min [facility] in Arterial blood 16:05:00 [facility] by Pulse oximetry Branch Procedures Procedure Date / Time Performed Performing Clinician Rachel chicas CT ABDOMEN PELVIS WO 2020-06-02 19:22:58 Theo Silveira [facility] Branch CONSENT/REFUSAL FOR 2020-06-02 19:09:03 Doctor Unassigned, No [facility] DIAGNOSIS AND Name Medical Branch TREATMENT ASSIGNMENT OF BENEFITS 2020-06-02 19:08:50 Doctor Unassigned, No [facility] Medical Branch ASSIGNMENT OF BENEFITS 2020-05-18 16:46:58 Doctor Unassigned, No [facility] Medical Branch ASSIGNMENT OF BENEFITS 2020-05-12 15:54:07 Doctor Unassigned, No [facility] Medical Branch REFERRAL- 2020-04-12 05:01:00 Doctor Unassigned, No [facility] REQUEST/RESPONSE Name Medical Branch [id number] 2019-11-10 00:00:00 SCATE [facility] [id number] 2019-11-10 00:00:00 SLIME [facility] Encounters Start End Encounter Admission Attending Care Care Encounter Source Date/Time Date/Time Type Type Clinicians Facility Department ID 2021-04-[address] [facility] [id number] Univers 08:12:51 TEODORO espinoza [facility] 2021-04-[address] [facility] [id number] Univers 07:01:10 TEODORO ity of [facility] 2019-11-09 Inpatient [facility] ENDO [id number] [facility] 09:30:00 , Immanuel [id number] [facility] Medical [place] 2019-10-30 Inpatient [facility] ENDO [id number] [facility] 09:30:00 , Immanuel [facility] [place] 2021-10-24 2021-10-[address] [facility] [id number] Univers 00:00:00 [facility]00[facility] [id number] it y of [place] [id number] Demario as FARRUKH?BLEA [id number] [address] MEDICAL OFFICE [facility] 2021-05-01 2021-05-01 Outpatient R [facility] [id number] Univers 18:40:00 18:40:00 [id number] [facility] 2021-05-01 2021-05-01 Outpatient R SREEDHAR [facility] [id number] Univers 18:40:00 18:00:10 [facility] 2021-05-01 2021-05-01 [facility] 1.2.840.114 [id number] Univers 17:35:39 18:00:10 Care [facility] 350.1.13.10 it y of [place] 4.2.7.2.686 Demario as FARRUKH?BLEA [phone] [address] MEDICAL OFFICE [facility] 2020-12-13 2020-12-13 Outpatient R DARIEL CROWDER [facility] [id number] Univers 13:30:00 13:30:00 [id number] ity [facility] 2020-12-06 2020-12-06 Outpatient R DARIEL CROWDER [facility] [id number] Univers 11:15:00 11:15:00 [id number] [facility]-10-05 2020-10-[address] [facility] 1.2.840.114 [id number] Univers 00:00:00 00:00:00 Health 350.1.13.10 [place] [id number] [address] Office Building 2020-10-03 2020-10-03 Outpatient [facility] [id number] Univers 14:50:00 14:50:00 ity [facility] 2020-09-27 2020-09-27 Outpatient DARIEL RASMUSSEN [facility] [id number] Univers 10:30:00 10:30:00 [id number] ity [facility] 2020-09-27 2020-09-27 Outpatient DARIEL RASMUSSEN [facility] [id number] Univers 10:30:00 10:30:00 ity [facility] 2020-09-27 2020-09-27 Telemedici Vel [facility] 1.2.840.114 [id number] Univers 10:10:31 10:25:31 ne Visit Health 350.1.13.10 [place] [id number] [address] Office Building 2020-09-12 2020-09-12 Outpatient JES [facility] [id number] Univers 14:50:00 14:50:00 BRODERICK [facility] 2020-09-08 2020-09-[address] [facility] 1.2.840.114 [id number] Univers 00:00:00 00:00:00 Outreach Broderick [facility] 350.1.13.10 i ty of [place] [facility] [id number] [address] 2020-06-28 2020-06-[address] [facility] 1.2.840.114 [id number] Univers 10:39:43 12:07:26 Visit Health 350.1.13.10 [place] [id number] [address] Office Building 2020-06-28 2020-06-28 Outpatient DARIEL RASMUSSEN [facility] [id number] Univers 09:45:00 09:45:00 [id number] [facility] 2020-06-28 2020-06-28 Outpatient DARIEL RASMUSSEN [facility] [id number] Univers 09:45:00 09:45:00 ity of [facility] 2020-06-06 2020-06-06 Outpatient R [facility] [id number] Univers 13:15:00 13:15:00 [id number] ity of [facility] 2020-06-06 2020-06-06 [facility] [id number] Univers 13:15:00 13:15:00 TEODORO ity of [facility] 2020-06-06 2020-06-06 Telephone [facility] [id number] Univers 00:00:00 00:00:00 Marta Martinez 350.1.13.10 ity [place] [facility] [phone] [address] 2020-06-02 2020-06-[address] [facility] 1.2.840.114 [id number] Univers 13:00:00 23:59:00 Encounter Juan 350.1.13.10 ity of [place] [phone] [facility] [address] 2020-06-02 2020-06-02 Outpatient R DARIEL CROWDER [facility] [id number] Univers 00:00:00 00:00:00 [id number] ity of [facility] 2020-06-02 2020-06-02 Outpatient R DARIEL CROWDER [facility] [id number] Univers 00:00:00 00:00:00 ity of [facility] 2020-06-02 2020-06-02 Orders Doctor JOE 1.2.840.114 [id number] Univers 00:00:00 00:00:00 Only Unassigned, BAKARI 350.1.13.10 ity of [place] [facility] 4.2.7.2.686 Demario as [id number] [facility] [address] 2020-05-24 2020-05-[address] [facility] 1.2.840.114 [id number] Univers 14:06:23 15:32:37 Visit Health 350.1.13.10 [place] [phone] [facility] [address] Office Building 2020-05-24 2020-05-24 Outpatient R DARIEL CROWDER [facility] [id number] Univers 13:30:00 13:30:00 ity of [facility] 2020-05-24 2020-05-24 Outpatient R DARIEL CROWDER [facility] [id number] Univers 13:30:00 13:30:00 ity of [facility] 2020-05-23 2020-05-23 Telephone Gramm, [facility] [id number] [id number] Univers 00:00:00 00:00:00 Marta Martinez 350.1.13.10 ity of [place] 4.2.7.2.686 [facility] [phone] [place] [facility] [address] [facility] 2020-05-18 2020-05-18 Outpatient R [facility] [id number] Univers 11:15:00 11:15:00 [id number] ity of [facility] 2020-05-18 2020-05-18 Outpatient R [facility] [id number] Univers 11:15:00 11:15:00 ity of [facility] 2020-05-18 2020-05-18 Laboratory Only, [facility] 1.2.840.114 [id number] 10:46:05 11:01:05 Only Test Juan 350.1.13.10 [place] 4.2.7.2.686 [place] [phone] [facility] 2020-05-18 2020-05-18 Laboratory Only, Adc Test [facility] 1.2.840. 114 [id number] Univers 10:46:05 11:01:05 Only Teodoro Tuttle 350.1.13.10 ity of [place] [id number] [facility] [address] 2020-05-18 2020-05-18 Orders Doctor DIAZ 1.2.840.114 [id number] Univers 00:00:00 00:00:00 Only Unassigned, BAKARI 350.1.13.10 ity of [place] [facility] 4.2.7.2.686 Demario as [phone] [facility] [address] 2020-05-18 2020-05-18 Orders Doctor DIAZ 1.2.840.114 [id number] 00:00:00 00:00:00 Only Unassigned, BAKARI 350.1.13.10 [place] [facility] 4.2.7.2.686 [phone] [facility] 2020-05-12 2020-05-12 Office [facility] [id number] Univers 09:55:12 10:51:13 Visit Teodoro Martinez 350.1.13.10 i ty of [place] [facility] [phone] Wa dical [address] 2020-05-12 2020-05-12 Office [facility] [id number] 09:55:12 10:51:13 Visit Teodoro Martinez 350.1.13.10 [place] 4.2.7.2.686 Professio [phone] [address] 2020-05-12 2020-05-12 [facility] [id number] Univers 10:00:00 10:00:00 TEODORO [id number] ity [facility] 2020-05-12 2020-05-12 Outpatient [facility] [id number] Univers 10:00:00 10:00:00 TEODORO [facility] 2020-05-12 2020-05-[address] [facility] 1.2.840.114 [id number] Univers 00:00:00 00:00:00 Health 350.1.13.10 [place] [phone] [address] Office Building 2020-05-12 2020-05-12 Orders Doctor JOE 1.2.840.114 [id number] Univers 00:00:00 00:00:00 Only Unassigned, BAKARI 350.1.13.10 ity of [place] [facility] 4.2.7.2.686 Demario as [phone] [address] 2020-05-12 2020-05-[address] [facility] 1.2.840.114 [id number] Univers 00:00:00 00:00:00 Surgery Marta Martinez 350.1.13.10 ity of [place] 4.2.7.2.686 [place] Profess[place] [phone] [place] dical nal [address] Building 2020-05-12 2020-05-12 Telephone Dariel Crowder 1.2.840.114 [id number] 00:00:00 00:00:00 Health 350.1.13.10 [place] 4.2.7.2.686 [place] [phone] Medical [address] 2020-04-12 2020-04-12 Orders Doctor JOE 1.2.840.114 [id number] Univers 00:00:00 00:00:00 Only Unassigned, BAKARI 350.1.13.10 ity of [place] [facility] 4.2.7.2.686 Demario as [phone] [facility] [address] Results Test Test Test Results Result Source Description Time Comments Comments CT ABDOMEN 2020-05 CT Abdomen and Pelvis out University PELVIS intravenous contrast. CLINICAL of [place] CONTRAST 19:38:3 HISTORY: History of [facility] 6 hernia. DOSE: Up-to-date CT Branch equipment and radiation dose reduction techniques wereemployed. CTDIvol: 14.94 mGy. DLP: 754 mGy-cm. TECHNIQUE : Contiguous axial imaging from the level of the lung basesthrough the pubic symphysis were performed after the uncomplicatedadministration of Omnipaque contrast material. Coronal and sagittalreconstructions were obtained. Auto mA and/or iterative reconstruction wereused to reduce radiation dose. FINDINGS: Comparison is made with previous CT scan dated 07/17/2017. Lower lungs: Clear. No pleural effusion or pericardial effusion. Liver, Gallbladder and Spleen: Mild hepatomegaly. Liver is 19 cm in length.Spleen is 12.5 x 4.5 cm. No gross pathology visualized in the liver or inthe spleen. No calcified gallstones. Biliary ducts and the pancreatic ductappear of normal size. Peritoneum: ?No free air or free fluid. No lymphadenopathy. Pancreas and Adrenals: ?Unremarkable pancreas and right adrenal gland. Leftadrenal gland showed diffuse hypertrophy with possible 12 mm adenoma,consistent with incidental nonfunctioning benign adenoma. Kidneys and Ureters: ?No visible calculi in the renal collecting systems. No hydroureter or hydronephrosis. Vessels: Mild atherosclerosis of aorta and iliac arteries. Retroperitoneum: No abnormal fluid or lymphadenopathy. Bowel: No acute findings. Vertical band gastroplasty noted. Additionalsurgical sutures are seen in the jejunum. Bladder and Reproductive Organs: Unremarkable. Bones: Metallic hardware in the right iliac bone and right femur withdystrophic bone formation in the adjacent soft tissues.Moderate degenerative disc disease noted at T12-L1. Minimal old fracturedeformity noted in T11. No aggressive bone lesions. Soft tissues: Left lateral antral hernia containing portions of thedescending colon without any stimulation or incarceration. CONCLUSION: 9 cm size left lateral abdominal wall hernia with portions ofdescending colon herniated into its sac without any complications. [facility], Radiant Results Inft User - 06/02/2020 1:39 PM CSTCT Abdomen and Pelvis out intravenous contrast.CLINICAL HISTORY: History of spigelian hernia.DOSE: Up-to-date CT equipment and radiation dose reduction techniques wereemployed. CTDIvol: 14.94 mGy. DLP: 754 mGy-cm.TECHNIQUE : Contiguous axial imaging from the level of the lung basesthrough the pubic symphysis were performed after the uncomplicatedadministration of Omnipaque contrast material. Coronal and sagittalreconstructions were obtained. Auto mA and/or iterative reconstruction wereused to reduce radiation dose.FINDINGS: Comparison is made with previous CT scan dated 07/17/2017.Lower lungs: Clear. No pleural effusion or pericardial effusion.Liver, Gallbladder and Spleen: Mild hepatomegaly. Liver is 19 cm in length.Spleen is 12.5 x 4.5 cm. No gross pathology visualized in the liver or inthe spleen. No calcified gallstones. Biliary ducts and the pancreatic ductappear of normal size.Peritoneum: No free air or free fluid. No lymphadenopathy.Pancreas and Adrenals: Unremarkable pancreas and right adrenal gland. Leftadrenal gland showed diffuse hypertrophy with possible 12 mm adenoma,consistent with incidental nonfunctioning benign adenoma.Kidneys and Ureters: No visible calculi in the renal collecting systems. No hydroureter or hydronephrosis. Vessels: Mild atherosclerosis of aorta and iliac arteries.Retroperitoneum: No abnormal fluid or lymphadenopathy.Bowel: No acute findings. Vertical band gastroplasty noted. Additionalsurgical sutures are seen in the jejunum.Bladder and Reproductive Organs: Unremarkable.Bones: Metallic hardware in the right iliac bone and right femur withdystrophic bone formation in the adjacent soft tissues.Moderate degenerative disc disease noted at T12-L1. Minimal old fracturedeformity noted in T11. No aggressive bone lesions.Soft tissues: Left lateral antral hernia containing portions of thedescending colon without any stimulation or incarceration.CONCLUSION: 9 cm size left lateral abdominal wall hernia with portions ofdescending colon herniated into its sac without any complications. SURGICAL 2019-10 SPECIMENS - 08:35:0 0 --RUN DATE: 11/12/19 [facility] - LAB PAGE 1 RUN TIME: 0835 Specimen Inquiry RUN USER: INTERFACE --[facility] [id number] AGE/SX: 44/F ROOM: [facility] RE11/09/19[facility] DR: Immanuel Villatoro MD : 75 BED: 1 DIS: 11/10/19 STATUS: DIS IN TLOC: -- SPEC #: [id number] RECD: 11/09/19 STATUS: APOORVA MARIE #: [id number] ILIANA: 11/09/198 [facility] DR: Immanuel Villatoro MD ENTERED: 11/09/19 SP [...] in its entirety in a single cassette. /th MICROSCOPIC DESCRIPTION Microscopic performed. CONTINUED ON NEXT PAGE --RUN DATE: 11/12/19 [facility] - LAB PAGE 2 RUN TIME: 834 Specimen Inquiry RUN USER: INTERFACE --SPEC #: [id number] PATIENT: PAUPATKATIE GARCIAEE #[id number] (Continued) -- Signed SIGNATURE ON Kathy Banda MD 11/12/19 0835 -- END OF REPORT MAGNESIUM 2019-11-10 07:06:00 Test Item Value Reference Range Interpretation Comme nts MAGNESIUM (test code = MAG) 1.6 mg/dL 1.4-2.6 N [id number] 07:06:00 Test Item Value Reference Range Interpretation Comments PHOSPHOROUS (test code = PHOS) 2.6 mg/dL 2.7-4.5 L BASIC METABOLIC [id number] 07:06:00 Test Item Value Reference Range Interpretation [...] mg/dL 8.8-10.2 N = CA) CBC W/AUTO [id number] 06:34:00 Test Item Value Reference Range Interpretation [...] 0.03 x10 3/uL 0.0-0.20 N COMPREHENSIVE METABOLIC [id number] 14:08:00 Test Item Value Reference Range Interpretation [...] N PHOSPHATASE (test code = ALKP) PROTHROMBIN [id number] 13:33:00 Test Item Value Reference Range Interpretation [...] 2.5-3.5recurren t systemic emboli sm. THROMBOPLASTIN TIME [id number] 13:33:00 Test Item Value Reference Range Interpretation Comments THROMBOPLASTIN TIME 39.4 SECONDS 26.0-35.9 H INTERPRE TATIVE PARTIAL (test code = DATA: erapeutic PTT) range: Unfractionated heparin:47 - 71 seconds Argatroban:1.5 to 3 times the basel ine PTT CBC W/AUTO [id number] 13:28:00 Test Item Value Reference Range Interpretation [...] BA#) 0.07 x10 3/uL 0.0-0.20 N SURGICAL [id number] 06:57:00 RUN DATE: 11/03/19 [facility] - LAB PAGE 1 RUN TIME: 656 Specimen Inquiry RUN USER: INTERFACE PATIENT: PAT MAI LOC: [facility] U #: [id number] AGE/SX: 44/F ROOM: RE10/30/19[facility] DR: Immanuel Villatoro MD : 75 BED: DIS: STATUS: DEP [facility] TLOC: SPEC #: [id number] RECD: 10/30/19 STATUS: APOORVA MARIE #: [id number] ILIANA: 10/30/19 [facility] DR: Immanuel Villatoro MD ENTERED: 10/30/19 SP [...] each. Entirely submitted in a single cassette. RAB/th MICROSCOPIC DESCRIPTION Microscopic performed. Signed SIGNATURE ON ZAK Kathy Morales MD 11/03/19 0657 END OF REPORT Coronavirus 2018 [id number] 13:25:00 Test Item Value Reference Range Interpretation Comments Coronavirus 2019 nCo Bedside (test Negative NEGATIVE code = [id number])
== END 2022-01-09 13:20 | disposition home or self-care (01) | DRG 513 ==
LOC: ER 18:44 → ERHOLD 21:28
PROVIDERS: ADMIT Hospitalist; ATTEND Hospitalist
PROC: 0JQK0ZZ Repair Left Hand Subcutaneous Tissue and Fascia, Open Approach (ICD-10-PCS; principal; 2022-01-08)
PROC: 0PDV0ZZ Extraction of Left Finger Phalanx, Open Approach (ICD-10-PCS; 2022-01-09)
PROC: 0RGX07Z Fusion of Left Finger Phalangeal Joint with Autologous Tissue Substitute, Open Approach (ICD-10-PCS; 2022-01-09)
PROC: 0RGX04Z Fusion of Left Finger Phalangeal Joint with Internal Fixation Device, Open Approach (ICD-10-PCS; 2022-01-09)
PROC: 01Q40ZZ Repair Ulnar Nerve, Open Approach (ICD-10-PCS; 2022-01-09)
DX: S62.623B Displaced fracture of middle phalanx of left middle finger, initial encounter for open fracture (principal); U07.1 COVID-19; S62.633B Displaced fracture of distal phalanx of left middle finger, initial encounter for open fracture; S62.665B Nondisplaced fracture of distal phalanx of left ring finger, initial encounter for open fracture; F41.8 Other specified anxiety disorders; F17.210 Nicotine dependence, cigarettes, uncomplicated; F31.9 Bipolar disorder, unspecified; W23.0XXA Caught, crushed, jammed, or pinched between moving objects, initial encounter; Y92.009 Unspecified place in unspecified non-institutional (private) residence as the place of occurrence of the external cause; Z23 Encounter for immunization; Z88.0 Allergy status to penicillin
CPT/HCPCS: 36415; 76000; 80048; 85025; 88304; 88305; 88311; 90471; 90714; 96374; 96375; 99285; J0744; J1100; J1170; J2250; J2270; J2405; J2704; J3010; J3480; J7030; U0003

== ENCOUNTER 2022-04-18 18:46 | Emergency (ER) | payer OTHER ==
--- OUTSIDE RECORDS SUMMARY | 2022-04-18 18:53 | XMS REPORT | Continuity of Care Document ---
:1975 Author Organization [facility] t Address [address] [place] [address] Care Team Providers Name Role Phone YOAV LEE Primary Care Physician Unavailable Joanne Christie Attending Clinician Unavailable TEODORO TUTTLE Attending Clinician Unavailable Immanuel Villatoro Attending Clinician Unavailable Alla Polanco Attending Clinician Unknown, Attending Attending Clinician Unavailable ALLA BERNAL Attending Clinician Unavailable Lyssa Eli MD Attending Clinician LYSSA ELI Attending Clinician Unavailable Dariel Crowder MD Attending Clinician DARIEL CROWDER Attending Clinician Unavailable BRODERICK ANDRE Attending Clinician Unavailable Broderick Andre DO Attending Clinician Marta Baez Attending Clinician Doctor Unassigned, [place] Attending Clinician Unavailable Only, Adc Test Attending Clinician Unavailable Teodoro Tuttle MD Attending Clinician TEODORO TUTTLE Admitting Clinician Unavailable Payers Payer Name Policy Type Policy Number Effective Date Expiration Date [employer] b[facility]ak[employer] [facility] [id number] 2021 STARPLUS OON 00:00:00 EXCEPT [facility] STAR [id number] 2018 PLUS 00:00:00 MEDICAID [facility] [id number] 2020 00:00:00 Problems Condition Condition Condition Status Onset Resolution Last Treating Co mments Source Name Details Category Date Date Treatment Clinician Date Screening Screening Disease Active 2019-06 Overview: Univers for for 07-12 Formattin ity of colorectal colorectal 00:00: g of this [place] cancer cancer 00 note Medical might be Branch different from the original. Added automatic ally from request for surgery [id number] Wound Wound Disease Active Univers dehiscence dehiscence 5-10 it y of 00:00: [place] 00 Medical Branch S/P S/P Disease Active Univers abdominal abdominal 5-04 [place] of [place] Morbid Morbid [...] 11-21 it y of screen screen 00:00: Medical Branch Allergies, Adverse Reactions, Alerts Allergy Allergy Status Severity Reaction(s) Onset Inactive Treating Comm ents Source Name Type Date Date Clinician PENICILL DRUG Active High ITCHING 2019-06 Univers IN INGREDI 07-12 ity of 00:00: [place] [facility] Penicill Propensi Active Itching 2019-06 Unive rs in ty to 07-12 ity of adverse 00:00: [place] reaction 00 Medical s Branch Penicill DA Active [facility] [place] [facility] Penicill DA Active ND RASH ITCHING [facility] ins 10-28 [place] 00:[facility] NO KNOWN Drug Active Univers ALLERGIE Class ity of S [facility] Social History Social Habit Start Date Stop Date Quantity Comments Source History of tobacco Cigarette Smoker University of use [facility] Exposure to 2022-03-24 2022-04-03 Not sure [facility] SARS-CoV-2 (event) 00:00:00 13:02:00 [facility] Alcohol intake 2021-05-01 2021-05-01 Current University of 00:00:00 00:00:00 non-drinker of [facility] alcohol Branch (finding) Cigarettes smoked 2017-10-24 2017-10-24 Univers ity of current (pack per 00:00:00 00:00:00 [place] [facility] ) - Reported Branch Cigarette 2017-10-24 2017-10-24 University of pack-years 00:00:00 00:00:00 [facility] Tobacco use and 2017-10-24 2017-10-24 Smokeless Universit y of exposure 00:00:00 00:00:00 tobacco [facility] [place] Tobacco Comment 2017-10-24 2017-10-24 thinking about Unive rsity of 00:00:00 00:00:00 [facility] Sex Ass[birth year] Universit y of 00:00:00 00:00:00 [facility] Smoking Status Start Date Stop Date Source Smokes tobacco daily 2017-10-24 00:00:00 Univers ity of [facility] Medications Ordered Filled Start Stop Current Ordering Indication Dosage Frequency Signature Comments Components Source Medication Medication Date Date Medication? Clinician (SIG) Name Name shawn 2020-06 Yes [id number] Apply to Univers one 2.5 % -08 affected ity of oint[place] 00:00[place] (two[place] Medical times Branch daily. hydrocortis 2020-06 Yes [id number] Apply to Univers one 2.5 % -08 affected ity of ointment 00:00[place] (two) Medical times Branch daily. hydrocortis 2020-06 Yes [id number] Apply to [facility] one 2.5 % 07-01 affected ity of ointment 00:00[place] (two) Medical times Branch daily. nystatin 2020-06- No [id number] Apply to [facility] 100,000 07-01-16 area(s) 4 ity of unit/gram 00:00: 05:59 (four) [place] cream 00 :00 times Medical daily for Branch 7 days. HYDROcodone 2020- No 1{tbl} Take 1 U nivers -acetaminop 1-05 01-05 tablet by it y of hen ([email or web address]) 16:48: 00:00 [place] 10-325 mg 08 :00 every 6 Medical tablet (six) Branch hours as needed for Pain (scale 4-6). HYDROcodone 2020- No 1{tbl} Take 1 U nivers -acetaminop 1-05 01-05 tablet by it y of hen ([email or web address]) 16:48: 00:00 [place] 10-325 mg 08 :00 every 6 Medical tablet (six) Branch hours as needed for Pain (scale 4-6). HYDROcodone 2019-06 Yes 1{tbl} Take 1 Un chase -acetaminop 2-01 tablet by ity of hen ([email or web address]) 20:18: mouth [place] 10-325 mg 53 every 6 Medical tablet (six) Branch hours as needed for Pain (scale 4-6). HYDROcodone 2019-06 Yes 1{tbl} Take 1 Un chase -acetaminop 2-01 tablet by ity of hen ([email or web address]) 20:18: mouth [place] 10-325 mg 53 every 6 Medical tablet (six) Branch hours as needed for Pain (scale 4-6). HYDROcodone 2019-06 Yes 1{tbl} Take 1 Un chase -acetaminop 2-01 tablet by ity of hen ([email or web address]) 20:18: mouth [place] 10-325 mg 53 every 6 Medical tablet (six) Branch hours as needed for Pain (scale 4-6). HYDROcodone 2019-06 Yes 1{tbl} Take 1 Un chase -acetaminop 2-01 tablet by ity of hen (NORCO) 20:18: mouth [place] 10-325 mg 53 every 6 Medical tablet (six) Branch hours as needed for Pain (scale 4-6). HYDROcodone 2019-06 Yes 1{tbl} Take 1 Un chase -acetaminop 2-01 tablet by ity of hen (NORCO) 20:18: mouth [place] 10-325 mg 53 every 6 Medical tablet (six) Branch hours as needed for Pain (scale 4-6). multivit 2019-06 Yes 1{tbl} Take 1 Unive [...] of Cap 18:58: mouth [place] 54 daily. [facility] Branch lamoTRIgine 2019-06 Yes 150mg Take 150 U nivers (LAMICTAL) 1-19 mg by ity of 150 mg 16:07: mouth [place] tablet 10 daily. [facility] Branch ALPRAZOLAM 2019-06 Yes 1mg Take 1 mg Un chase (XANAX 1-19 by mouth ity of ORAL) 16:07: as needed. [address] Branch lamoTRIgine 2019-06 Yes 150mg Take 150 U nivers (LAMICTAL) 1-19 mg by ity of 150 mg 16:07: mouth [place] tablet 10 daily. [facility] Branch ALPRAZOLAM 2019-06 Yes 1mg Take 1 mg Un chase (XANAX 1-19 by mouth ity of ORAL) 16:07: as needed. [address] Branch lamoTRIgine 2019-06 Yes 150mg Take 150 U nivers (LAMICTAL) 1-19 mg by ity of 150 mg 16:07: mouth [place] tablet 10 daily. [facility] Branch lamoTRIgine 2019-06 Yes 150mg Take 150 U nivers (LAMICTAL) 1-19 mg by ity of 150 mg 16:07: mouth [place] tablet 10 daily. [facility] Branch lamoTRIgine 2019-06 Yes 150mg Take 150 U nivers (LAMICTAL) 1-19 mg by ity of 150 mg 16:07: mouth [place] tablet 10 daily. [facility] Branch lamoTRIgine 2019-06 Yes 150mg Take 150 U nivers (LAMICTAL) 1-19 mg by ity of 150 mg 16:07: mouth [place] tablet 10 daily. [facility] Branch lamoTRIgine 2019-06 Yes 150mg Take 150 U nivers (LAMICTAL) 1-19 mg by ity of 150 mg 16:07: mouth [place] tablet 10 daily. Medical Branch lamoTRIgine 2019-06 Yes 150mg Take 150 U nivers (LAMICTAL) 1-19 mg by ity of 150 mg 16:07: mouth [place] tablet 10 daily. [facility] Branch lamoTRIgine 2019-06 Yes 150mg Take 150 U nivers (LAMICTAL) 1-19 mg by ity of 150 mg 16:07: mouth [place] tablet 10 daily. [facility] Branch lamoTRIgine 2019-06 Yes 150mg Take 150 U nivers (LAMICTAL) 1-19 mg by ity of 150 mg 16:07: mouth [place] tablet 10 daily. [facility] Branch lamoTRIgine 2019-06 Yes 150mg Take 150 U nivers (LAMICTAL) 1-19 mg by ity of 150 mg 16:07: mouth [place] tablet 10 daily. [facility] Branch lamoTRIgine 2019-06 Yes 150mg Take 150 U nivers (LAMICTAL) 1-19 mg by ity of 150 mg 16:07: mouth [place] tablet 10 daily. [facility] Branch lamoTRIgine 2019-06 Yes 150mg Take 150 U nivers (LAMICTAL) 1-19 mg by ity of 150 mg 16:07: mouth [place] tablet 10 daily. [facility] Branch lamoTRIgine 2019-06 Yes 150mg Take 150 U nivers (LAMICTAL) 1-19 mg by ity of 150 mg 16:07: mouth [place] tablet 10 daily. [facility] lamoTRIgine 2019-06 Yes 150mg Take 150 U nivers (LAMICTAL) 1-19 mg by ity of 150 mg 16:07: mouth [place] tablet 10 daily. [facility] lamoTRIgine 2019-06 Yes 150mg Take 150 U nivers (LAMICTAL) 1-19 mg by ity of 150 mg 16:07: mouth [place] tablet 10 daily. [facility] ALPRAZOLAM 2019-06 Yes 1mg Take 1 mg Un chase (XANAX 1-19 by mouth ity of ORAL) 16:07: as needed. [address] lamoTRIgine 2019-06 Yes 150mg Take 150 U nivers (LAMICTAL) 1-19 mg by ity of 150 mg 16:07: mouth [place] tablet 10 daily. [facility] ALPRAZOLAM 2019-06 Yes 1mg Take 1 mg Un chase (XANAX 1-19 by mouth ity of ORAL) 16:07: as needed. [address] lamoTRIgine 2019-06 Yes 150mg Take 150 U nivers (LAMICTAL) 1-19 mg by ity of 150 mg 16:07: mouth [place] tablet 10 daily. Medical Branch ALPRAZOLAM 2019-06 Yes 1mg Take 1 mg Un chase (XANAX 1-19 by mouth ity of ORAL) 16:07: as needed. [place] 10 Medical Branch lamoTRIgine 2019-06 Yes 150mg Take [...] 00:00: mouth (two) Medical times Branch daily. DULoxetine 2019-06 [...] by ity of tablet 00:00: mouth 2 00 (two) Medical times Branch daily. busPIRone 2019- Yes 1{tbl} Take 1 Univ ers 10 mg 0-28 tablet by ity of tablet 00:00: mouth 2 00 (two) Medical times Branch daily. busPIRone 2019- [...] by ity of tablet 00:00: mouth 2 00 (two) Medical times Branch daily. busPIRone 2019- Yes 1{tbl} Take 1 Univ ers 10 mg 0-28 tablet by ity of tablet 00:00: mouth 2 00 (two) Medical times Branch daily. busPIRone 2019- [...] mouth 2 (two) Medical times Branch daily. BANOPHEN 25 [...] 00:00: mouth 00 daily. Medical Branch famotidine 2020 Yes 20mg Take 20 mg U nivers 20 mg 0-12 by mouth ity of tablet 00:00: daily. Medical Branch BANOPHEN 25 2019- Yes 1{capsu Take 1 U nivers mg [...] le} capsule by ity of 00:00: mouth [place] 00 every 4 Medical (four) Branch hours as needed for Itching or Allergies. famotidine 2019-06- No 20mg Take 20 mg Univers 20 mg 012 05-24 by mouth ity of tablet 00:00: 00:00 daily. 00 :00 Medical Branch famotidine 2019-06- No 20mg Take 20 mg Univers 20 mg 12 05-24 by mouth ity of tablet 00:00: 00:00 daily. [place] 00 :00 Medical Branch traZODone 2019- Yes 1{tbl} Take 1 Univ ers 100 mg 0-05 tablet by ity of tablet 00:00: mouth at [place] [address] bedtime. Medical Branch traZODone 2019-06 Yes 1{tbl} Take 1 Univ ers 100 mg 0-05 tablet by ity of tablet 00:00: mouth at [place] [address] bedtime. Medical Branch traZODone 2019- Yes 1{tbl} Take 1 Univ ers 100 mg 0-05 tablet by ity of tablet 00:00: mouth at [place] [address] bedtime. Medical Branch traZODone 2019- Yes 1{tbl} Take 1 Univ ers 100 mg 0-05 tablet by ity of tablet 00:00: mouth at [place] [address] bedtime. Medical Branch traZODone 2019- Yes 1{tbl} Take 1 Univ ers 100 mg 0-05 tablet by ity of tablet 00:00: mouth at [place] 00 bedtime. Medical Branch traZODone 2019- Yes 1{tbl} Take 1 Univ ers 100 mg 0-05 tablet by ity of tablet 00:00: mouth at [place] [address] bedtime. Medical Branch traZODone 2019- Yes 1{tbl} Take 1 Univ ers 100 mg 0-05 tablet by ity of tablet 00:00: mouth at [place] [address] bedtime. Medical Branch traZODone 2020-1 Yes 1{tbl} Take 1 Univ ers 100 mg 0-05 tablet by ity of tablet 00:00: mouth at [place] [address] bedtime. Medical Branch traZODone 2020-1 Yes 1{tbl} Take 1 Univ ers 100 mg 0-05 tablet by ity of tablet 00:00: mouth at [place] [address] bedtime. Medical Branch traZODone 2020-1 Yes 1{tbl} Take 1 Univ ers 100 mg 0-05 tablet by ity of tablet 00:00: mouth at [place] [address] bedtime. Medical Branch traZODone 2020-1 Yes 1{tbl} Take 1 Univ ers 100 mg 0-05 tablet by ity of tablet 00:00: mouth at [place] [address] bedtime. Medical Branch traZODone 2019-1 Yes 1{tbl} Take 1 Univ ers 100 mg 0-05 tablet by ity of tablet 00:00: mouth at [place] [address] bedtime. Medical Branch traZODone 2019- Yes 1{tbl} Take 1 Univ ers 100 mg 0-05 tablet by ity of tablet 00:00: mouth at [place] [address] bedtime. Medical Branch traZODone 2020- Yes 1{tbl} Take 1 Univ ers 100 mg 0-05 tablet by ity of tablet 00:00: mouth at [place] [address] bedtime. Medical Branch traZODone 2020-1 Yes 1{tbl} Take 1 Univ ers 100 mg 0-05 tablet by ity of tablet 00:00: mouth at [place] [address] bedtime. Medical Branch traZODone 2020-1 Yes 1{tbl} Take 1 Univ ers 100 mg 0-05 tablet by ity of tablet 00:00: mouth at [place] [address] bedtime. Medical Branch fluticasone 2020-0 Yes 50{spra Use 50 U nivers propionate 9-27 y} Sprays in ity of 50 00:00: each [place] mcg/actuati 00 nostril 2 Med ical on nasal (two) Branch spray times daily. fluticasone 2020-0 Yes 50{spra Use 50 U nivers propionate 9-27 y} Sprays in ity of 50 00:00: each [place] mcg/actuati 00 nostril 2 Med ical on [...] Pain (scale 1-3) with oral narcotics. ibuprofen 2019- No 600mg Take 1 Univ ers 600 mg -19 05-19 tablet by ity of tablet 00:00: 00:00 mouth [place] 00 :00 every 6 Medical (six) Branch hours as needed for Pain (scale 1-3), Pain (scale 4-6) or Pain (scale 1-3) with oral narcotics. ibuprofen 2019- No 600mg Take 1 Univ ers 600 mg -19 05- tablet by ity of tablet 00:00: 00:00 mouth [place] 00 :00 every 6 Medical (six) Branch hours as needed for Pain (scale 1-3), Pain (scale 4-6) or Pain (scale 1-3) with oral narcotics. lamoTRIgine Yes 150mg Take 150 U nivers (LAMICTAL) 6-12 mg by ity of 150 mg 16:22: mouth [place] tablet 38 daily. [facility] Branch ALPRAZOLAM Yes 1mg Take 1 mg Un chase (XANAX 6-12 by mouth ity of ORAL) 16:22: as needed. [address] Branch lamoTRIgine 0 Yes 150mg Take 150 U nivers (LAMICTAL) 6-12 mg by ity of 150 mg 16:22: mouth [place] tablet 38 daily. [facility] Branch ALPRAZOLAM 0 Yes 1mg Take 1 mg Un chase (XANAX 6-12 by mouth ity of ORAL) 16:22: as needed. [address] Branch Polyethylen 2017- Yes Take 1 Univ ers e Glycol 5-22 packet ity of 3350 00:00: dissolved [place] (MIRALAX) 00 in 4-8 Medical 17 gram ounces Branch powder beverage. Polyethylen 0 Yes Take 1 Univ ers e Glycol 5-22 packet ity of 3350 00:00: dissolved [place] (MIRALAX) 00 in 4-8 Medical 17 gram ounces Branch powder beverage. Polyethylen 2019- No Take 1 Uni vers e Glycol 5-22 11-19 packet ity of 3350 00:00: 00:00 dissolved [place] (MIRALAX) 00 :00 in 4-8 Medical 17 gram ounces Branch powder beverage. Polyethylen 2018-0 2020- No Take 1 Uni vers e Glycol - 11-19 packet ity of 3350 00:00: 00:00 dissolved [place] (MIRALAX) 00 :00 in 4-8 Medical 17 gram ounces Branch powder beverage. Polyethylen 2020- No Take 1 Uni vers e Glycol -15 05-19 packet ity of 3350 00:00: 00:00 dissolved [...] as needed for Pain (scale 4-6). docusate Yes 100mg Take 1 Univer s 100 mg 5-06 capsule by ity of capsule 00:00: mouth 2 [place] 00 (two) Medical times Branch daily as needed for Constipati on. ibuprofen Yes 600mg Take 1 Unive rs 600 mg 5-06 tablet by ity of tablet 00:00: mouth [place] 00 every 6 Medical (six) Branch hours as needed for Alternate with [place] for pain scale 4-6. docusate 0 Yes 100mg Take 1 Univer s 100 mg 5-06 capsule by ity of capsule 00:00: mouth 2 [place] 00 (two) Medical times Branch daily as needed for Constipati on. ibuprofen Yes 600mg Take 1 Unive rs 600 mg 5-06 tablet by ity of tablet 00:00: mouth [place] 00 every 6 Medical (six) Branch hours as needed for Alternate with [place] for pain scale 4-6. docusate 2020- No 100mg Take 1 Unive rs 100 mg 5-06 11-19 capsule by ity of capsule 00:00: 00:00 mouth 2 [place] 00 :00 (two) Medical times Branch daily as needed for Constipati on. ibuprofen 2020- No 600mg Take 1 Univ ers 600 mg 5-06 11-19 tablet by ity of tablet 00:00: 00:00 mouth [place] 00 :00 every 6 Medical (six) Branch hours as needed for Alternate with [place] for pain scale 4-6. docusate 0 2020- No 100mg Take 1 Unive rs 100 mg 5-06 -19 capsule by ity of capsule 00:00: 00:00 mouth 2 [place] 00 :00 (two) Medical times Branch daily as needed for Constipati on. ibuprofen 2020- No 600mg Take 1 Univ ers 600 mg 5-06 11-19 tablet by ity of tablet 00:00: 00:00 mouth [place] 00 :00 every 6 Medical (six) Branch hours as needed for Alternate with [place] for pain scale 4-6. docusate 0 2020- No 100mg Take 1 Unive rs 100 mg 5-06 11-19 capsule by ity of capsule 00:00: 00:00 mouth 2 [place] 00 :00 (two) Medical times Branch daily as needed for Constipati on. ibuprofen 2020- No 600mg Take 1 Univ ers 600 mg 5-06 11-19 tablet by ity of tablet 00:00: 00:00 mouth [place] 00 :00 every 6 Medical (six) Branch hours as needed for Alternate with [place] for pain scale 4-6. citalopram 2018-0 Yes 40mg Take 1 Unive rs 40 mg 1-27 tablet by ity of tablet 00:00: mouth [place] 00 daily. Medical Branch citalopram 2018-0 Yes 40mg Take 1 Unive rs 40 mg 1-27 tablet by ity of tablet 00:00: mouth [place] 00 daily. Medical Branch citalopram 2018-0 2020- No [...] by ity of tablet 00:00: mouth 2 [place] 00 (two) Medical times Branch daily. hydrOXYzine 2018-0 Yes 25mg Take 1 Univ ers 25 mg 1-26 tablet by ity of tablet 00:00: mouth [place] 00 every 6 Medical (six) Branch hours as needed for Anxiety. traZODONE 2018-0 Yes 50mg Take 1 Univer s 50 mg 1-26 tablet by ity of tablet 00:00: mouth at [place] 00 bedtime as Medical needed for Branch Insomnia. melatonin 3 2018-0 Yes 3mg Take 1 Univ ers mg tablet 1-26 tablet by ity o f 00:00: mouth at [place] 00 bedtime. Medical Branch clonazePAM 2018-0 Yes .25mg Take 0.5 Un chase 0.5 mg 1-26 tablets by ity of tablet 00:00: mouth 2 [place] 00 (two) Medical times Branch daily. hydrOXYzine 2018-0 Yes 25mg Take 1 Univ ers 25 mg 1-26 tablet by ity of tablet 00:00: mouth [place] 00 every 6 Medical (six) Branch hours as needed for Anxiety. traZODONE 2018-0 Yes 50mg Take 1 Univer s 50 mg 1-26 tablet by ity of tablet 00:00: mouth at [place] 00 bedtime as Medical needed for Branch Insomnia. melatonin 3 2017- Yes 3mg Take 1 Univ ers mg tablet 07-19 tablet by ity o f 00:00: mouth at [place] 00 bedtime. Medical Branch clonazePAM 2020- No .25mg Take 0.5 U nivers 0.5 mg -19 05-19 tablets by ity of tablet 00:00: 00:00 mouth 2 [place] 00 :00 (two) Medical times Branch daily. hydrOXYzine 2020- No 25mg Take 1 Uni vers 25 mg -19 05-19 tablet by ity of tablet 00:00: 00:00 mouth [place] 00 :00 every 6 Medical (six) Branch hours as needed for Anxiety. traZODONE 2017- 2020- No 50mg Take 1 Unive rs 50 mg 07-19- tablet by ity of tablet 00:00: 00:00 mouth at [place] 00 :00 bedtime as Medical needed for Branch Insomnia. melatonin 3 2020- No 3mg Take 1 Uni vers mg tablet 07-19- tablet by ity of 00:00: 00:00 mouth at [place] 00 :00 bedtime. Medical Branch clonazePAM 2020- No .25mg Take 0.5 U nivers 0.5 mg 07-19- tablets by ity of tablet 00:00: 00:00 mouth 2 [place] 00 :00 (two) Medical times Branch daily. hydrOXYzine 2020- No 25mg Take 1 Uni vers 25 mg 07-19- tablet by ity of tablet 00:00: 00:00 mouth [place] 00 :00 every 6 Medical (six) Branch hours as needed for Anxiety. traZODONE 2017-0 2020- No 50mg Take 1 Unive rs 50 mg 07-19- tablet by ity of tablet 00:00: 00:00 mouth at [place] 00 :00 bedtime as Medical needed for Branch Insomnia. melatonin 3 2017- 2020- No 3mg Take 1 Uni vers mg tablet 07-19- tablet by ity of 00:00: 00:00 mouth at [place] 00 :00 bedtime. Medical Branch clonazePAM 2017- 2020- No .25mg Take 0.5 U nivers 0.5 mg - 11-19 tablets by ity of tablet 00:00: 00:00 mouth 2 [place] 00 :00 (two) Medical times Branch daily. hydrOXYzine 2019- No 25mg Take 1 Uni vers 25 mg 07-19 tablet by ity of tablet 00:00: 00:00 mouth [place] 00 :00 every 6 Medical (six) Branch hours as needed for Anxiety. traZODONE 2019- No 50mg Take 1 Unive rs 50 mg 07-19 tablet by ity of tablet 00:00: 00:00 mouth at [place] 00 :00 bedtime as Medical needed for Branch Insomnia. melatonin 3 2019- No 3mg Take 1 Uni vers mg tablet 07-19 tablet by ity of 00:00: 00:00 mouth at [place] 00 :00 bedtime. Medical Branch omeprazole 2015-0 Yes 1{capsu Take 1 Un chase 40 mg 4-15 le} capsule by ity of capsule 00:00: mouth [place] 00 daily. Medical Branch omeprazole 0 Yes 1{capsu Take 1 Un chase 40 mg 4-15 le} capsule by ity of capsule 00:00: mouth [place] 00 daily. Medical Branch omeprazole 0 Yes 1{capsu Take 1 Un chase 40 mg 4-15 le} capsule by ity of capsule 00:00: mouth [place] 00 daily. Medical Branch omeprazole 2015-0 Yes 1{capsu Take 1 Un chase 40 mg 4-15 le} capsule by ity of capsule 00:00: mouth [place] 00 daily. Medical Branch omeprazole 2015-0 Yes 1{capsu Take [...] mouth [place] 00 daily. Medical Branch omeprazole 2015-0 Yes 1{capsu Take 1 Un chase 40 mg 4-15 le} capsule by ity of capsule 00:00: mouth [place] 00 daily. Medical Branch omeprazole 2015-0 Yes 1{capsu Take [...] 00:00: mouth [place] 00 daily. Medical Branch Immunizations Ordered Filled Immunization Date Status Comments [facility] e Immunization Name Name SARS-COV-2 COVID-19 2020-10-03 Completed Unive rsity of PFIZER VACCINE 00:00:00 [facility] SARS-COV-2 COVID-19 2020-10-03 Completed Unive rsity of PFIZER VACCINE 00:00:00 [facility] SARS-COV-2 COVID-19 2020-10-03 Completed Unive rsity of PFIZER VACCINE 00:00:00 [facility] SARS-COV-2 COVID-19 2020-10-03 Completed Unive rsity of PFIZER VACCINE 00:00:00 [facility] SARS-COV-2 COVID-19 2020-09-12 Completed Unive rsity of PFIZER VACCINE 00:00:00 [facility] SARS-COV-2 COVID-19 2020-09-12 Completed Unive rsity of PFIZER VACCINE 00:00:00 [facility] SARS-COV-2 COVID-19 2020-09-12 Completed Unive rsity of PFIZER VACCINE 00:00:00 [facility] SARS-COV-2 COVID-19 2020-09-12 Completed Unive rsity of PFIZER VACCINE 00:00:00 [facility] SARS-COV-2 COVID-19 2020-09-12 Completed Unive rsity of PFIZER VACCINE 00:00:00 [facility] Influenza Virus 2010-08-27 Completed Universit y of Vaccine 00:00:00 [facility] Influenza Virus 2010-08-27 Completed Universit y of Vaccine 00:00:00 [facility] Influenza Virus 2010-08-27 Completed Universit y of Vaccine 00:00:00 [facility] Influenza Virus 2010-08-27 Completed Universit y of Vaccine 00:00:00 [facility] Influenza Virus 2010-08-27 Completed Universit y of Vaccine 00:00:00 [facility] Influenza Virus 2010-08-27 Completed Universit y of Vaccine 00:00:00 [facility] Influenza Virus 2010-08-27 Completed Universit y of Vaccine 00:00:00 [facility] Influenza Virus 2010-08-27 Completed Universit y of Vaccine 00:00:00 [facility] Influenza Virus 2010-08-27 Completed Universit y of Vaccine 00:00:00 [facility] Influenza Virus 2010-08-27 Completed Universit y of Vaccine 00:00:00 [facility] Influenza Virus 2010-08-27 Completed Universit y of Vaccine 00:00:00 [facility] Influenza Virus 2010-08-27 Completed Universit y of Vaccine 00:00:00 [facility] Influenza Virus 2010-08-27 Completed Universit y of Vaccine 00:00:00 [facility] Influenza Virus 2010-08-27 Completed Universit y of Vaccine 00:00:00 [facility] Influenza Virus 2010-08-27 Completed Universit y of Vaccine 00:00:00 [facility] Influenza Virus 2010-08-27 Completed Universit y of Vaccine 00:00:00 [facility] Influenza Virus 2010-08-27 Completed Universit y of Vaccine 00:00:00 [facility] Influenza Virus 2010-08-27 Completed Universit y of Vaccine 00:00:00 [facility] Influenza Virus 2010-08-27 Completed Universit y of Vaccine 00:00:00 [facility] Influenza Virus 2010-08-27 Completed Universit y of Vaccine 00:00:00 [facility] Influenza Virus 2010-08-27 Completed Universit y of Vaccine 00:00:00 [facility] Influenza Virus 2010-08-27 Completed Universit y of Vaccine 00:00:00 [facility] Influenza Virus 2010-08-27 Completed Universit y of Vaccine 00:00:00 [facility] Vital Signs Vital Name Observation Time Observation Value Comments Source Systolic blood 2022-04-03 187 mm[Hg] University of pressure 19:47:00 [facility] Diastolic blood 2022-04-03 83 mm[Hg] University o f pressure 19:47:00 [facility] Heart rate 2022-04-03 79 /min University of 19:44:00 [facility] Body temperature 2022-04-03 36.78 Mariam University of 19:44:00 [facility] Respiratory rate 2022-04-03 18 /min University of 19:44:00 [facility] Body height 2022-04-03 170.2 cm University of 19:44:00 [facility] Body weight 2022-04-03 106.595 kg University of 19:44:00 [facility] BMI 2022-04-03 36.81 kg/m2 University of 19:44:00 [facility] Oxygen saturation 2022-04-03 97 /min University of in Arterial blood 19:44:00 [facility] by Pulse oximetry Branch Systolic blood 2021-05-01 150 mm[Hg] University of pressure 23:42:00 [facility] Diastolic blood 2021-05-01 80 mm[Hg] University o f pressure 23:42:00 [facility] Heart rate 2021-05-01 74 /min University of 23:38:00 [facility] Body temperature 2021-05-01 36.33 Mariam University of 23:38:00 [facility] Respiratory rate 2021-05-01 20 /min University of 23:38:00 [facility] Body weight 2021-05-01 109.408 kg University of 23:38:00 [facility] BMI 2021-05-01 37.78 kg/m2 University of 23:38:00 [facility] Oxygen saturation 2021-05-01 98 /min University of in Arterial blood 23:38:00 [place] [facility] by Pulse oximetry Branch Systolic blood 2020-06-28 157 mm[Hg] University of pressure 16:49:00 [facility] Diastolic blood 2020-06-28 90 mm[Hg] University o f pressure 16:49:00 [facility] Heart rate 2020-06-28 67 /min University of 16:46:00 [facility] Body temperature 2020-06-28 36.5 Mariam University of 16:46:00 [facility] Respiratory rate 2020-06-28 12 /min University of 16:46:00 [facility] Body height 2020-06-28 170.2 cm University of 16:46:00 [facility] Body weight 2020-06-28 106.913 kg University of 16:46:00 [facility] BMI 2020-06-28 36.92 kg/m2 University of 16:46:00 [facility] Oxygen saturation 2020-06-28 97 /min University of in Arterial blood 16:46:00 [place] [facility] by Pulse oximetry Branch Systolic blood 2020-05-24 161 mm[Hg] Pt states she University o f pressure 20:15:00 is nervous [facility] Diastolic blood 2020-05-24 84 mm[Hg] Pt states [facility] University of pressure 20:15:00 is nervous [facility] Heart rate 2020-05-24 56 /min University of 20:15:00 [facility] Body temperature 2020-05-24 36.5 Mariam University of 20:15:00 [facility] Respiratory rate 2020-05-24 18 /min University of 20:15:00 [facility] Body height 2020-05-24 170.2 cm University of 20:15:00 [facility] Body weight 2020-05-24 108.274 kg University of 20:15:00 [facility] BMI 2020-05-24 37.39 kg/m2 University of 20:15:00 [facility] Oxygen saturation 2020-05-24 97 /min University of in Arterial blood 20:15:00 [place] [facility] by Pulse oximetry Branch Systolic blood 2020-05-12 129 mm[Hg] University of pressure 16:05:00 [facility] Branch Diastolic blood 2020-05-12 73 mm[Hg] University o f pressure 16:05:00 [facility] Heart rate 2020-05-12 67 /min University of 16:05:00 [facility] Body temperature 2020-05-12 36.22 Mariam University of 16:05:00 [facility] Body weight 2020-05-12 107.502 kg University of 16:05:00 [facility] BMI 2020-05-12 37.12 kg/m2 University 16:05:00 [facility] Oxygen saturation 2020-05-12 97 /min [facility] in Arterial blood 16:05:00 [place] [facility] by Pulse oximetry Branch Systolic blood 2020-05-12 129 mm[Hg] University of pressure 16:05:00 [facility] Diastolic blood 2020-05-12 73 mm[Hg] [place] o f pressure 16:05:00 [facility] Heart rate 2020-05-12 67 /min University 16:05:00 [facility] Body temperature 2020-05-12 36.22 Mariam [facility] 16:05:00 [facility] Body weight 2020-05-12 107.502 kg [facility] 16:05:00 [facility] BMI 2020-05-12 37.12 kg/m2 University 16:05:00 [facility] Oxygen saturation 2020-05-12 97 /min [facility] in Arterial blood 16:05:00 [facility] crispin by Pulse oximetry Branch Procedures Procedure Date / Time Performed Performing Clinician Rachel chicas CT ABDOMEN PELVIS WO 2020-06-02 19:22:58 Theo Silveira [facility] CONTRAST Medical Branch CONSENT/REFUSAL FOR 2020-06-02 19:09:03 Doctor Unassigned, No [facility] DIAGNOSIS AND Name Medical Branch TREATMENT ASSIGNMENT OF BENEFITS 2020-06-02 19:08:50 Doctor Unassigned, No [facility] Medical Branch ASSIGNMENT OF BENEFITS 2020-05-18 16:46:58 Doctor Unassigned, No [facility] Name Medical Branch ASSIGNMENT OF BENEFITS 2020-05-12 15:54:07 Doctor Unassigned, No [facility] Medical Branch REFERRAL- 2020-04-12 05:01:00 Doctor Unassigned, No [facility] REQUEST/RESPONSE Name Medical Branch [id number] 2019-11-10 00:00:00 [facility] [id number] 2019-11-10 00:00:00 [facility] Encounters Start End Encounter Admission Attending Care Care Encounter Source Date/Time Date/Time Type Type Clinicians Facility Department ID 2022-03-21 Outpatient [facility] [id number] [place] 10:57:56 [id number] Health 2022-02-28 Outpatient [facility] [id number] [place] 09:43:32 [id number] [facility] 2022-02-16 Outpatient Shahnaz[facility] [id number] Common 13:31:01 Joanne [facility] 2022-02-15 Outpatient [facility] [id number] [place] 12:18:04 [id number] [facility] 2021-04-22 [facility] [id number] Univers 08:12:51 TEODORO espinoza [facility] 2021-04-22 Outpatient R PARAG [facility] THOMAS [id number] Univers 07:01:10 [facility] 2019-10-30 Inpatient [facility] ENDO [id number] 09:30:00 , Immanuel 53 [facility] 2022-04-03 2022-04-03 Urgent Alla Bernal [facility] 1.2.840 .114 [id number] Univers 15:00:00 15:20:00 Care Unknown, [facility] HEALTH [id number] [facility] [id number] Demario as FARRUKH?BLEA [phone] [address] OFFICE [facility] 2022-04-03 2022-04-03 Outpatient Jeffrey BERNAL [facility] [id number] Univers 15:00:00 15:10:31 ALLA espinoza o f [facility] 2022-03-02 2022-03-02 ambulatory STLC ST[facility] [id number] Common 00:00:00 00:00:00 [facility] 2022-02-19 2022-02-19 ambulatory STLMLC STLC [id number] Common 00:00:00 00:00:00 [facility] 2021-10-24 2021-10-24 Isaac Eli [facility] 1.2.840.114 [id number] Univers 00:00:00 [facility]00[facility] [id number] [facility] y of [place] 4.2.7.2.686 Demario as FARRUKH?BLEA [phone] [address] OFFICE BUILDING 2021-05-01 2021-05-01 Outpatient R SREEDHAR [facility] [id number] Univers 18:40:00 18:00:10 LYSSA [facility] 2021-05-01 2021-05-01 Urgent Sreedhar [facility] 1.2.840.114 [id number] Univers 17:35:39 18:00:10 Care Lyssa HEALTH [id number] it y of [place] 4.2.7.2.686 Demario as FARRUKH?BLEA [phone] [place] [address] MEDICAL OFFICE BUILDING 2020-10-05 2020-10-05 Telephone Dariel Crowder [facility] 1.2.840.114 [id number] Univers 00:00:00 00:00:00 Health [id number] [id number] [id number] [address] Office Building 2020-10-03 2020-10-03 Outpatient [facility] [id number] Univers 14:50:00 14:50:00 ity [facility] 2020-09-27 2020-09-27 Outpatient R DARIEL CROWDER [facility] [id number] Univers 10:30:00 10:30:00 [facility] 2020-09-27 2020-09-27 Telemedici Dariel Crowder [facility] 1.2.840.114 [id number] Univers 10:10:31 10:25:31 ne Visit Health [id number] i [id number] [phone] [address] Office Building 2020-09-12 2020-09-12 Outpatient JES [facility] [id number] Univers 14:50:00 14:50:00 BRODERICK [facility] 2020-09-08 2020-09-08 Patient Jes [facility] 1.2.840.114 [id number] Univers 00:00:00 00:00:00 Outreach [facility] [id number] i ty of [place] [facility] [phone] [address] 2020-06-28 2020-06-28 Office Dariel Crowder [facility] 1.2.840.114 [id number] Univers 10:39:43 12:07:26 Visit Health [id number] [id number] [phone] [facility] [address] [place] Office Building 2020-06-28 2020-06-28 Outpatient R DARIEL CROWDER [facility] [id number] Univers 09:45:00 09:45:00 ity of [facility] 2020-06-06 2020-06-06 Outpatient R TUTTLE [facility] [id number] Univers 13:15:00 13:15:00 TEODORO ity of [facility] 2020-06-06 2020-06-06 [facility] [id number] Univers 00:00:00 00:00:00 Marta Chelo Martinez [id number] ity of [place] [facility] [phone] [place] [facility] [address] Branch Building 2020-06-02 2020-06-02 Hospital Dariel Crowder [facility] 1.2.840.114 [id number] Univers 13:00:00 23:59:00 Encounter [place] [id number] ity [place].2.686 [place] [id number] [facility] [address] [place] 2020-06-02 2020-06-02 Outpatient R DARIEL CROWDER [facility] [id number] Univers 00:00:00 00:00:00 ity of [facility] 2020-06-02 2020-06-02 Orders Doctor DIAZ 1.2.840.114 [id number] Univers 00:00:00 00:00:00 Only Unassigned, BAKARI 350.1.13.10 ity of [place] [facility] 4.2.7.2.686 Demario as [phone] [facility] [address] [place] 2020-05-24 2020-05-24 Office Dariel Crowder [facility] 1.2.840.114 [id number] Univers 14:06:23 15:32:37 Visit Health [id number] [place] [phone] [place] [address] [place] Office Building 2020-05-24 2020-05-24 Outpatient R DARIEL CROWDER [facility] [id number] Univers 13:30:00 13:30:00 ity of [facility] 2020-05-23 2020-05-23 Telephone Gramm, [facility] [id number] [id number] Univers 00:00:00 00:00:00 Marta Martinez 350.1.13.10 ity of [place] 4.2.7.2.686 [facility] [phone] [place] [facility] Branch Building 2020-05-18 2020-05-18 Outpatient R [facility] [id number] Univers 11:15:00 11:15:00 ity of [facility] 2020-05-18 2020-05-18 Laboratory Only, [facility] 1.2.840.114 [id number] 10:46:05 11:01:05 Only Test Juan 350.1.13.10 [place] 4.2.7.2.686 [place] [id number] 2020-05-18 2020-05-18 Laboratory Only, [facility] Test [facility] 1.2.840. 114 [id number] Univers 10:46:05 11:01:05 Only Teodoro Tuttle 350.1.13.10 ity of [place] 4.2.7.2.686 [facility] [phone] [facility] [address] [place] 2020-05-18 2020-05-18 Orders Doctor DIAZ 1.2.840.114 [id number] 00:00:00 00:00:00 Only UnassignedBAKARI 350.1.13.10 [place] [facility] 4.2.7.2.686 [id number] 2020-05-18 2020-05-18 Orders Doctor DIAZ 1.2.840.114 [id number] Univers 00:00:00 00:00:00 Only UnassignedBAKARI 350.1.13.10 ity of [place] [facility] 4.2.7.2.686 Demario [phone] [facility] [address] [place] 2020-05-12 2020-05-12 Office Parag [facility] 1.2.235.133 [id number] 09:55:12 10:51:13 Visit Teodoro Martinez 350.1.13.10 [place] 4.2.7.2.686 Professio [phone] [address] 2020-05-12 2020-05-12 Office Parag [facility] 1.2.576.875 [id number] Univers 09:55:12 10:51:13 Visit Teodoro Martinez 350.1.13.10 i ty [place] [phone] [facility] [address] [facility] 2020-05-12 2020-05-12 Outpatient R PARAG [facility] [id number] Univers 10:00:00 10:00:00 TEODORO alonsoausten of [facility] 2020-05-12 2020-05-12 Telephone Dariel Crowder [facility] 1.2.840.114 [id number] 00:00:00 00:00:00 Health 350.1.13.10 [place] 4.2.7.2.686 [place] [phone] [address] 2020-05-12 2020-05-12 Telephone Dariel Crowder [facility] 1.2.840.114 [id number] Univers 00:00:00 00:00:00 Health 350.1.13.10 it [place] [phone] [address] Office Building 2020-05-12 2020-05-12 Orders Doctor JOE 1.2.840.114 [id number] Univers 00:00:00 00:00:00 Only Unassigned, BAKARI 350.1.13.10 ity of [place] [facility] 4.2.7.2.686 Demario as [phone] [place] [address] Branch 2020-05-12 2020-05-12 Prep For Kristen [facility] 1.2.840.114 [id number] Univers 00:00:00 00:00:00 Surgery Marta Whitney Juan 350.1.13.10 ity of [place].2.[place] [phone] [facility] [facility] 2020-04-12 2020-04-12 Orders Doctor JOE 1.2.840.114 [id number] Univers 00:00:00 00:00:00 Only Unassigned, BAKARI 350.1.13.10 ity of [place] [facility] 4.2.7.2.686 Demario as [phone] [facility] 009 Branch Results Test Test Test Results Result Source Description Time Comments Comments CT ABDOMEN 2020-05 CT Abdomen and Pelvis out University PELVIS WO -10 intravenous contrast. CLINICAL of [place] CONTRAST 19:38:3 HISTORY: History of [facility] 6 hernia. DOSE: Up-to-date CT Branch equipment [...] herniated into its sac without any complications. [facility], Radiant Results Inft User - 06/02/2020 1:39 [...] sac without any complications. SURGICAL 2019-10 SPECIMENS -21 08:35:0 0 --RUN DATE: 11/12/19 [facility] - LAB PAGE 1 RUN TIME: 0835 Specimen Inquiry RUN USER: INTERFACE --PATIENT: STONEY MAI LOC: P5 POD B U #: [id number] AGE/SX: 44/F ROOM: [facility] RE11/09/19[facility] DR: Immanuel Villatoro MD : 75 BED: 1 DIS: 11/10/19 STATUS: DIS IN TLOC: -- SPEC #: [id number] RECD: 11/09/19 STATUS: APOORVA REQ #: [id number] ILIANA: 11/09/[address] [facility] [address]: Immanuel Villatoro MD ENTERED: 11/09/19 SP TYPE: SURG OTHR DR: No Primary or Family Physician Yoav Lee Jr, MDORDERED: PATHGM5, PATH SPEC, H [...] CONTINUED ON NEXT PAGE --RUN DATE: 11/12/19 [facility] - LAB PAGE 2 RUN TIME: 0835 Specimen Inquiry RUN USER: INTERFACE --SPEC #: [id number] PATIENT: STONEY MAI #[id number] (Continued) -- Signed SIGNATURE ON FILE Kathy Morales MD 11/12/19 0835 -- END OF REPORT MAGNESIUM 2019-11-10 07:06:00 Test Item Value Reference Range Interpretation Comme nts MAGNESIUM (test code = MAG) 1.6 mg/dL 1.4-2.6 N [id number] 07:06:00 Test Item Value Reference Range Interpretation Comments PHOSPHOROUS (test code = PHOS) 2.6 mg/dL 2.7-4.5 L BASIC METABOLIC [id number] 07:06:00 Test Item Value Reference Range Interpretation [...] mg/dL 8.8-10.2 N = CA) CBC W/AUTO [id number] 06:34:00 Test Item Value Reference Range Interpretation [...] 0.03 x10 3/uL 0.0-0.20 N COMPREHENSIVE METABOLIC [id number] 14:08:00 Test Item Value Reference Range Interpretation [...] N PHOSPHATASE (test code = ALKP) PROTHROMBIN [id number] 13:33:00 Test Item Value Reference Range Interpretation Comments PROTHROMBIN TIME 10.8 SECONDS 10.3-12.9 N PATIENT (test code = PTP) INTERNATIONAL 0.96 INR UNIT 0.9-1.11 N The INR is us eful only NORMAL RATIO (test for monit oring code = INR) anticoagulant therapy.It may be unreliable in t he initial phase o f antigoagulation and in unstable patien ts. Indication for Anticoagulation Recommended INR 1. Prevention of v enous thomboembolism 2.0-3.0in high- risk patients; treat ment of venousthrombosi s and pulmonary embol ism aftera course o f heparin; preven tion of systemicembolis m in a variety of cond itions, including atria l fibrillation an d prothetic tissu e heart valves, 2. Pros thetic mechanical hear t valves; 2.5-3.5recurren t systemic emboli sm. THROMBOPLASTIN TIME [id number] 13:33:00 Test Item Value Reference Range Interpretation Comments THROMBOPLASTIN TIME 39.4 SECONDS 26.0-35.9 H INTERPRE TATIVE PARTIAL (test code = : erapeutic PTT) range: Unfractionated heparin:47 - 71 seconds Argatroban:1.5 to 3 times the basel ine PTT CBC W/AUTO [id number] 13:28:00 Test Item Value Reference Range Interpretation [...] BA#) 0.07 x10 3/uL 0.0-0.20 N SURGICAL [id number] 06:57:00 RUN DATE: 11/03/19 [facility] - LAB PAGE 1 RUN TIME: 656 Specimen Inquiry RUN USER: INTERFACE ------- -----PATIENT: STONEY MAI LOC: CADE U #: [id number] AGE/SX: 44/F ROOM: RE10/30/19REG DR: Immanuel Villatoro MD : 75 BED: DIS: STATUS: DEP [facility] TLOC: SPEC #: [id number] RECD: 10/30/19 STATUS: APOORVA MARIE #: [id number] ILIANA: 10/30/[address] [facility] [address]: Immanuel Villatoro MD ENTERED: 10/30/19 SP TYPE: SURG OTHR DR: Yoav Lee Jr, MD ORDERED: PATHGM4, PATH SPEC, H E STAIN HISTOLOGY: TISSUE ID BLK PCS PETE LEV / PROCEDURE DISPOSITION ____ ___ ___ ___ ___ ANTRUM BIOPSY A 1 3 1 TISSUES: A. ANTRUM BIOPSY - Gastric Antrum Bx CLINICAL HISTORY GERD FINAL DIAGNOSIS A-GASTRIC ANTRUM, BIOPSY: - Antral type gastric mucosa with minimal chronic inflammation and reactive epithelial changes, including features suggestive of a component of reactivegastropathy/chemical gastritis. - Negative for H. pylori organisms on routine histology. GROSS DESCRIPTION A-GASTRIC ANTRUM: Two pieces of tissue which measure 2 mm each. Entirely submitted in a singlecassette. RAB/th MICROSCOPIC DESCRIPTION Microscopic performed. Signed SIGNATURE ON Kathy Banda MD 11/03/19 0657 END OF REPORT Coronavirus 2018 [id number] 13:25:00 Test Item Value Reference Range Interpretation Comments Coronavirus 2019 [facility] (test Negative NEGATIVE code = [id number])
--- NOTE | 2022-04-18 20:05 | EDPHYS ---
Physician Documentation [facility] Name: Stoney Vu Age: 47 yrs Sex: Female : 1975 Arrival Date: 04/18/2022 Time: 18:56 Bed 1 Private MD: ED Physician Vincent Gaffney HPI: 04/18 19:28 This 47 yrs old Female presents to ER via Ambulatory with complaints of Sore Throat, rn Ear Pain. 19:28 The patient presents with sore throat. The patient describes throat pain as rn intermittent, raw, scratchy. Onset: The symptoms/episode began/occurred 1 week(s) ago. Severity of symptoms: At their worst the symptoms were mild, in the emergency department the symptoms are unchanged. Modifying factors: The symptoms are alleviated by nothing, the symptoms are aggravated by nothing. Associated signs and symptoms: Pertinent negatives chest pain, chills, cough, fever, flu-like symptoms, rhinorrhea, shortness of breath. The patient has not experienced similar symptoms in the past. The patient has not recently seen a physician. Pt reports here with daughter, 1 week of sore throat and sinus congestion, now radiates to right ear. NO fever. No difficulty swallowing.. 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 - Social history:: Smoking status: Patient reports the use of cigarette tobacco products, smokes one-half pack cigarettes per day, Patient/guardian denies using alcohol. - Family history:: not pertinent. - Hospitalizations: : No recent hospitalization is reported. ROS: 19:28 Constitutional: Negative for fever, chills, and weight loss, Eyes: Negative for injury, rn pain, redness, and discharge, ENT: + sore throat and sinus congestion Neck: Negative for injury, pain, and swelling, Cardiovascular: Negative for chest pain, palpitations, and edema, Respiratory: Negative for shortness of breath, cough, wheezing, and pleuritic chest pain, Abdomen/GI: Negative for abdominal pain, nausea, vomiting, diarrhea, and constipation, Back: Negative for injury and pain, MS/Extremity: Negative for injury and deformity, Skin: Negative for injury, rash, and discoloration, Neuro: Negative for headache, weakness, numbness, tingling, and seizure. Exam: 19:28 Constitutional: This is a well developed, well nourished patient who is awake, alert, rn and in no acute distress. Head/Face: Normocephalic, atraumatic. Eyes: Periorbital areas with no swelling, redness, or edema. ENT: No pharyngeal erythema or exudate, no stridor, MMM, uvula midline Neck: Trachea midline, no thyromegaly or masses palpated, and no cervical lymphadenopathy. Supple, full range of motion without nuchal rigidity, or vertebral point tenderness. No Meningismus. Cardiovascular: Regular rate and rhythm. No pulse deficits. Respiratory: Speaking full sentences, unlabored. No increased work of breathing, no retractions or nasal flaring. Skin: Warm, dry Neuro: Awake and alert, GCS 15 Vital Signs: 19:06 BP 185 / 98; Pulse 70; Resp 18; Temp 97.9(TE); Pulse Ox 98% on R/A; Weight 104.33 kg; ld1 Height 5 ft. 7 in. (170.18 cm); Pain 3/10; 19:06 Body Mass Index 36.02 (104.33 kg, 170.18 cm) ld1 MDM: 18:59 Patient medically screened. rn 20:05 Differential diagnosis: group A strep tonsillitis, influenza, laryngitis, pharyngitis, rn upper respiratory infection, viral syndrome. Data reviewed: vital signs, nurses notes, lab test result(s), and as a result, I will discharge patient. Counseling: I had a detailed discussion with the patient and/or guardian regarding: the historical points, exam findings, and any diagnostic results supporting the discharge/admit diagnosis, lab results, the need for outpatient follow up, to return to the emergency department if symptoms worsen or persist or if there are any questions or concerns that arise at home. Special discussion: I discussed with the patient/guardian in detail that at this point there is no indication for admission to the hospital. It is understood, however, that if the symptoms persist or worsen the patient needs to return immediately for re-evaluation. 04/18 19:13 Order name: Flu; Complete Time: 20:04 rn 04/18 19:13 Order name: Strep; Complete Time: 20:04 rn 04/18 20:05 Order name: Throat Culture EDMS Administered Medications: No medications were administered Disposition Summary: 04/18/22 20:05 Discharge Ordered Location: Home rn Problem: new rn Symptoms: are unchanged rn Condition: Stable rn Diagnosis - Acute sinusitis, unspecified rn Followup: rn - With: Private Physician - When: As needed - Reason: Recheck today's complaints, Re-evaluation by your physician Discharge Instructions: - Discharge Summary Sheet rn - Sinusitis, Adult rn Forms: - Medication Reconciliation Form rn - Thank You Letter rn - 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 Day 2, 3, 4 , 5 take one (1) tablet once daily.; 6 tablet; Refills: 0, Product Selection Permitted Signatures: Dispatcher [employer] EDVincent Leung MD MD rn Kylie Jones RN RN ld1
--- NOTE | 2022-04-18 20:05 | ER ---
Nurse's Notes [facility] Name: Stoney Vu Age: 47 yrs Sex: Female : 1975 Arrival Date: 04/18/2022 Time: 18:56 Bed 1 Private MD: Diagnosis: Acute sinusitis, unspecified Presentation: 04/18 19:06 Chief complaint: Patient states: Sore throat X 1 week. Coronavirus screen: At this ld1 time, the client does not indicate any symptoms associated with coronavirus-19. Ebola Screen: No symptoms or risks identified at this time. Initial Sepsis Screen: Does the patient meet any 2 criteria? No. Patient's initial sepsis screen is negative. Does the patient have a suspected source of infection? No. Patient's initial sepsis screen is negative. Risk Assessment: Do you want to hurt yourself or someone else? Patient reports no desire to harm self or others. Onset of symptoms was April 18, 2022. 19:06 Method Of Arrival: Ambulatory ld1 19:06 Acuity: ESTELLE 4 ld1 Triage Assessment: 19:07 General: Appears in no apparent distress. comfortable, Behavior is calm, cooperative, ld1 appropriate for age. Pain: Denies pain. EENT: Reports sore throat . Neuro: Level of Consciousness is awake, alert, obeys commands, Oriented to person, place, time, situation. Cardiovascular: Capillary refill < 3 seconds Patient's skin is warm and dry. Respiratory: Airway is patent Respiratory effort is even, unlabored. GI: Abdomen is round non-distended. : No signs and/or symptoms were reported regarding the genitourinary system. Derm: No signs and/or symptoms reported regarding the dermatologic system. Musculoskeletal: No signs and/or symptoms reported regarding the musculoskeletal system. 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 - Social history:: Smoking status: Patient reports the use of cigarette tobacco products, smokes one-half pack cigarettes per day, Patient/guardian denies using alcohol. - Family history:: not pertinent. - Hospitalizations: : No recent hospitalization is reported. Screenin:48 Abuse screen: Denies threats or abuse. Denies injuries from another. Nutritional eh3 screening: No deficits noted. Tuberculosis screening: No symptoms or risk factors identified. Fall Risk None identified. Assessment: 19:19 General: Appears in no apparent distress. uncomfortable, Behavior is calm, cooperative, eh3 appropriate for age. Pain: Complains of pain in throat. Pain: Complains of pain in right ear. Neuro: Level of Consciousness is awake, alert, obeys commands, Oriented to person, place, time, situation. Cardiovascular: Capillary refill < 3 seconds Patient's skin is warm and dry. Respiratory: Airway is patent Respiratory effort is even, unlabored, Respiratory pattern is regular, symmetrical, Breath sounds are clear bilaterally. GI: No signs and/or symptoms were reported involving the gastrointestinal system. : No signs and/or symptoms were reported regarding the genitourinary system. EENT: Throat is reddened. Derm: No signs and/or symptoms reported regarding the dermatologic system. Musculoskeletal: No signs and/or symptoms reported regarding the musculoskeletal system. Vital Signs: 19:06 BP 185 / 98; Pulse 70; Resp 18; Temp 97.9(TE); Pulse Ox 98% on R/A; Weight 104.33 kg; ld1 Height 5 ft. 7 in. (170.18 cm); Pain 3/10; 19:06 Body Mass Index 36.02 (104.33 kg, 170.18 cm) ld1 ED Course: 18:56 Patient arrived in ED. dt4 18:59 Vincent Gaffney MD is Attending Physician. rn 19:07 Triage completed. ld1 19:07 Arm band placed on right wrist. ld1 19:19 Bernice Madison, SARAH is Primary Nurse. eh3 20:48 Patient has correct armband on for positive identification. eh3 20:48 No provider procedures requiring assistance completed. Patient did not have IV access eh3 during this emergency room visit. Administered Medications: No medications were administered Medication: 20:48 VIS not applicable for this client. eh3 Outcome: 20:05 Discharge ordered by . rn 20:48 Discharged to home ambulatory. eh3 20:48 Condition: stable 20:48 Discharge instructions given to patient, Instructed on discharge instructions, follow up and referral plans. medication usage, Demonstrated understanding of instructions, follow-up care, medications, Prescriptions given X 1. 20:48 Patient left the ED. eh3 Signatures: Vincent Gaffney MD MD rn Dibbern, Lauren RN RN ld1 Bernice Madison RN RN eh3 Hui Whelan dt4 Corrections: (The following items were deleted from the chart) 19:24 19:19 Pain: Complains of pain in right ear and left ear eh3 eh3
[2022-04-18 21:31] VITALS: BP 185/98; TEMP 97.9; O2SAT 98
== END 2022-04-18 20:48 | disposition home or self-care (01) ==
LOC: ER 18:46
DX: J01.90 Acute sinusitis, unspecified (principal); Z88.0 Allergy status to penicillin
CPT/HCPCS: 87070; 87081; 87804; 99282

== ENCOUNTER 2022-11-23 20:55 | Emergency (ER) | payer OTHER ==
--- OUTSIDE RECORDS SUMMARY | 2022-11-23 21:01 | XMS REPORT | Continuity of Care Document ---
:1975 Author Organization [facility] t Address [address] [facility] [address] [place] [id number] Care Team Providers Name Role Phone FOLEY RITA Primary Care Physician Unavailable Rita Foley Attending Clinician Unavailable JENNIFER TUTTLE Attending Clinician Unavailable Immanuel Villatoro Attending Clinician Unavailable HOANG KNOX Attending Clinician Unavailable Hoang Chow Attending Clinician Doctor Unassigned, [place] Attending Clinician Unavailable JOI ELI Attending Clinician Unavailable Joi Eli MD Attending Clinician Unknown, Attending Attending Clinician Unavailable Brandon BOWSER Attending Clinician Unavailable Brandon Ocasio Attending Clinician Jessika Marcelo RN Attending Clinician Unavailable Wilian Rudd Attending Clinician JESSI BERNAL Attending Clinician Unavailable Jessi Polanco Attending Clinician Alyce Crowder MD Attending Clinician ALYCE CROWDER Attending Clinician Unavailable BRODERICK ANDRE Attending Clinician Unavailable Broderick Andre DO Attending Clinician Kristen SLATERMarta Chelo Attending Clinician Only, Adc Test Attending Clinician Unavailable Jennifer Tuttle MD Attending Clinician JENNIFER TUTTLE Admitting Clinician Unavailable HOANG KNOX Admitting Clinician Unavailable Payers Payer Name Policy Type Policy Number Effective Date Expiration Date S yony [facility] [id number] 2021 STARPLUS OON 00:00:00 EXCEPT [facility] [id number] 2018 PLUS 00:00:00 MEDICAID OF [place] [id number] 2020 00:00:00 Problems Condition Condition Condition Status Onset Resolution Last Treating Co mments Source Name Details Category Date Date Treatment Clinician Date Screening Screening Disease Active 2019-06 Overview: Univers for for 07-12 Formattin ity of colorectal colorectal 00:00: g of this [place] cancer cancer note Medical might be Branch different from the original. Added automatic ally from request for surgery [id number] Wound Wound Disease Active Univers dehiscence dehiscence 5-10 it y of 00:00: [place] [facility] S/P S/P Disease Active Univers abdominal abdominal 5-04 ity of hysterecto hysterecto 00:00: Te felixs my my Medical Branch Morbid Morbid Disease Active Univers [...] pain Hip pain Disease Active Unive rs 5- ity of 00:00: [place] 00 Medical Branch History of History of Disease Active U nivers fracture fracture 531 ity of of right of right 00:00: [place] hip hip 00 Medical Branch Positive Positive Disease Active Unive rs urine drug urine drug 11-21 it y of screen screen 00:00: [place] 00 Medical [place] [id number] GERD Problem Active Common without Spirit esophagiti - [facility] s [facility] [id number] LISETTE Problem Active Common (generaliz Spirit ed anxiety - [facility] disorder) [facility] [id number] Bipolar 1 Problem Active Comm on disorder, Spirit depressed, - [facility] mild [facility] Allergies, Adverse Reactions, Alerts Allergy Allergy Status Severity Reaction(s) Onset Inactive Treating Comm ents Source Name Type Date Date Clinician PENICILL DRUG Active Low ITCHING 2019-06 Univers IN INGREDI 07-12 ity of 00:00: [place] 00 Medical Branch Penicill Propensi Active Itching 2019-06 Unive rs in ty to 07-12 ity of adverse 00:00: [place] reaction 00 Medical s Branch Penicill DA Active DC [facility] [place] Penicill DA Active DC RASH ITCHING [facility] ins 10-28 [place] 00:00: [facility] NO KNOWN Drug Active Univers ALLERGIE Class ity of S [facility] penicill penicill Active rash Common in V in V Spirit - [facility] Social History Social Habit Start Date Stop Date Quantity Comments Source Sex Assigned At Common Sp meaghan - [facility] History of tobacco Cigarette Smoker University of use [facility] Exposure to 2022-10-21 2022-10-31 Not sure University SARS-CoV-2 (event) 00:00:00 13:26:00 [facility] Alcohol intake 2022-10-25 2022-10-25 Current University of 00:00:00 00:00:00 non-drinker of [facility] alcohol Branch (finding) Cigarettes smoked 2022-10-09 2022-10-09 Univers ity of current (pack per 00:00:00 00:00:00 ) - Reported Branch Cigarette 2022-10-09 2022-10-09 University of pack-years 00:00:00 00:00:00 [facility] Tobacco use and 2022-10-09 2022-10-09 Smokeless Universit y of exposure 00:00:00 00:00:[address] tobacco non-[address] [facility] dical Branch Tobacco Comment 2022-10-09 2022-10-09 thinking about Unive rsity of 00:00:00 00:00:00 it [facility] Smoking Status Start Date Stop Date Source Smokes tobacco daily 2022-10-09 [facility]:00[facility] F[facility] Start Stop Current Ordering Indication Dosage Frequency Signature Comments Components Source Medication Medication Date Date Medication? Clinician (SIG) Name Name meloxicam 2022- Yes [id number] 15mg Take 1 Univers 15 mg 5-04 -04 9104 tablet by ity of tablet 00:00: 04:59 mouth in [place] 00 :00 [facility] for 30 days. meloxicam 2022- Yes [id number] 15mg Take 1 Univers 15 mg 5-04 06-04 9104 tablet by ity of tablet 00:00: 04:59 mouth in [place] 00 :00 [facility] for 30 days. meloxicam 2022- Yes [id number] 15mg Take 1 Univers 15 mg 5-04 - 9104 tablet by ity of tablet 00:00: 04:59 mouth in [place] 00 :00 [facility] for 30 days. meloxicam 2022- Yes [id number] 15mg Take 1 Univers 15 mg 5-04 06-04 9104 tablet by ity of tablet 00:00: 04:59 mouth in [place] 00 :00 [facility] for 30 days. meloxicam 2022- Yes [id number] 15mg Take 1 Univers 15 mg 5-04 - 9104 tablet by ity of tablet 00:00: 04:59 mouth in [place] 00 :00 [facility] for 30 days. nystatin Yes [id number] Apply to Univers 100,000 1-24 area(s) 4 ity of unit/gram 00:00: (four) [place] cream 00 times Medical daily. Branch nystatin 2022-0 Yes [id number] Apply to Univers 100,000 1-24 area(s) 4 ity of unit/gram 00:00: (four) [place] cream 00 times Medical daily. Branch nystatin 2022-0 Yes [id number] Apply to Univers 100,000 1-24 area(s) 4 ity of unit/gram 00:00: (four) [place] cream 00 times Medical daily. Branch nystatin 2023-0 Yes [id number] Apply to Univers 100,000 1-24 area(s) 4 ity of unit/gram 00:00: (four) [place] cream 00 times Medical daily. Branch nystatin 2023-0 Yes [id number] Apply to Univers 100,000 1-24 area(s) 4 ity of unit/gram 00:00: (four) [place] cream 00 times Medical daily. Branch nystatin 2023-0 Yes [id number] Apply to Univers 100,000 1-24 area(s) 4 ity of unit/gram 00:00: (four) [place] cream 00 times Medical daily. Branch nystatin 2023-0 Yes [id number] Apply to Univers 100,000 1-24 area(s) 4 ity of unit/gram 00:00: (four) [place] cream 00 times Medical daily. Branch nystatin 2023-0 Yes [id number] Apply to Univers 100,000 1-24 area(s) 4 ity of unit/gram 00:00: (four) [place] cream 00 times Medical daily. Branch nystatin 3-0 Yes [id number] Apply to Univers 100,000 1-24 area(s) 4 ity of unit/gram 00:00: (four) [place] cream 00 times Medical daily. Branch acetaminoph 2021-06- No 1000mg 1,000 mg, Univers en 2-08 12-08 Oral, ity of (TYLENOL) 15:15: 15:11 ONCE, 1 [place] tablet 00 :00 dose, On Medical 1,000 mg Dolly Branch 05/31/22 at 0915, SANJAY ibuprofen 2021-06 Yes [id number] 600mg Take 1 U nivers 600 mg 2-08 tablet by ity of tablet 00:00: mouth [place] 00 every 6 Medical (six) Branch hours as needed for Pain (scale 4-6). benzonatate 2021-06 Yes [id number] 200mg Take 1 Univers 200 mg 2-08 capsule by ity of capsule 00:00: mouth 3 [place] 00 (three) Medical times Branch daily as needed for Cough for up to 20 doses. ondansetron 2021-06 Yes [id number] 4mg Take 1 Univers (ZOFRAN) 4 2-08 tablet by ity of mg tablet 00:00: mouth [place] 00 every 8 Medical (eight) Branch hours as needed for Nausea and Vomiting (N/V). ibuprofen 2021-06 Yes [id number] 600mg Take 1 U nivers 600 mg 2-08 tablet by ity of tablet 00:00: mouth [place] 00 every 6 Medical (six) Branch hours as needed for Pain (scale 4-6). benzonatate 2021-06 Yes [id number] 200mg Take 1 Univers 200 mg 2-08 capsule by ity of capsule 00:00: mouth 3 00 (three) Medical times Branch daily as needed for Cough for up to 20 doses. ondansetron 2021-06 Yes [id number] 4mg Take 1 Univers (ZOFRAN) 4 2-08 tablet by ity of mg tablet 00:00: mouth [place] 00 every 8 Medical (eight) Branch hours as needed for Nausea and Vomiting (N/V). ibuprofen 2021-06 Yes [id number] 600mg Take 1 U nivers 600 mg 2-08 tablet by ity of tablet 00:00: mouth [place] 00 every 6 Medical (six) Branch hours as needed for Pain (scale 4-6). benzonatate 2021-06 Yes [id number] 200mg Take 1 Univers 200 mg 2-08 capsule by ity of capsule 00:00: mouth 3 (three) Medical times Branch daily as needed for Cough for up to 20 doses. ondansetron 2021-06 Yes [id number] 4mg Take 1 Univers (ZOFRAN) 4 2-08 tablet by ity of mg tablet 00:00: mouth [place] 00 every 8 Medical (eight) Branch hours as needed for Nausea and Vomiting (N/V). ibuprofen 2021-06 Yes [id number] 600mg Take 1 U nivers 600 mg 2-08 tablet by ity of tablet 00:00: mouth [place] 00 every 6 Medical (six) Branch hours as needed for Pain (scale 4-6). benzonatate 2021-06 Yes [id number] 200mg Take 1 Univers 200 mg 2-08 capsule by ity of capsule 00:00: mouth 3 (three) Medical times Branch daily as needed for Cough for up to 20 doses. ondansetron 2021-06 Yes [id number] 4mg Take 1 Univers (ZOFRAN) 4 2-08 tablet by ity of mg tablet 00:00: mouth [place] 00 every 8 Medical (eight) Branch hours as needed for Nausea and Vomiting (N/V). ibuprofen 2021-06 Yes [id number] 600mg Take 1 U nivers 600 mg 2-08 tablet by ity of tablet 00:00: mouth [place] 00 every 6 Medical (six) Branch hours as needed for Pain (scale 4-6). benzonatate 2021-06 Yes [id number] 200mg Take 1 Univers 200 mg 2-08 capsule by ity of capsule 00:00: mouth 3 00 (three) Medical times Branch daily as needed for Cough for up to 20 doses. ondansetron 2021-06 Yes [id number] 4mg Take 1 Univers (ZOFRAN) 4 2-08 tablet by ity of mg tablet 00:00: mouth [place] 00 every 8 Medical (eight) Branch hours as needed for Nausea and Vomiting (N/V). ibuprofen 2021-06 Yes [id number] 600mg Take 1 U nivers 600 mg 2-08 tablet by ity of tablet 00:00: mouth [place] 00 every 6 Medical (six) Branch hours as needed for Pain (scale 4-6). benzonatate 2021-06 Yes [id number] 200mg Take 1 Univers 200 mg 2-08 capsule by ity of capsule 00:00: mouth 3 (three) Medical times Branch daily as needed for Cough for up to 20 doses. ondansetron 2021-06 Yes [id number] 4mg Take 1 Univers (ZOFRAN) 4 2-08 tablet by ity of mg tablet 00:00: mouth [place] 00 every 8 Medical (eight) Branch hours as needed for Nausea and Vomiting (N/V). ibuprofen 2021-06 Yes [id number] 600mg Take 1 U nivers 600 mg 2-08 tablet by ity of tablet 00:00: mouth [place] 00 every 6 Medical (six) Branch hours as needed for Pain (scale 4-6). benzonatate 2021-06 Yes [id number] 200mg Take 1 Univers 200 mg 2-08 capsule by ity of capsule 00:00: mouth 3 00 (three) Medical times Branch daily as needed for Cough for up to 20 doses. ondansetron 2021-06 Yes [id number] 4mg Take 1 Univers (ZOFRAN) 4 2-08 tablet by ity of mg tablet 00:00: mouth [place] 00 every 8 Medical (eight) Branch hours as needed for Nausea and Vomiting (N/V). ibuprofen 2021-06 Yes [id number] 600mg Take 1 U nivers 600 mg 2-08 tablet by ity of tablet 00:00: mouth [place] 00 every 6 Medical (six) Branch hours as needed for Pain (scale 4-6). benzonatate 2021-06 Yes [id number] 200mg Take 1 Univers 200 mg 2-08 capsule by ity of capsule 00:00: mouth 3 [place] 00 (three) Medical times Branch daily as needed for Cough for up to 20 doses. ondansetron 2021-06 Yes [id number] 4mg Take 1 Univers (ZOFRAN) 4 2-08 tablet by ity of mg tablet 00:00: mouth [place] 00 every 8 Medical (eight) Branch hours as needed for Nausea and Vomiting (N/V). ibuprofen 2021-06 Yes [id number] 600mg Take 1 U nivers 600 mg 2-08 tablet by ity of tablet 00:00: mouth [place] 00 every 6 Medical (six) Branch hours as needed for Pain (scale 4-6). benzonatate 2021-06 Yes [id number] 200mg Take 1 Univers 200 mg 2-08 capsule by ity of capsule 00:00: mouth 3 00 (three) Medical times Branch daily as needed for Cough for up to 20 doses. ondansetron 2021-06 Yes [id number] 4mg Take 1 Univers (ZOFRAN) 4 2-08 tablet by ity of mg tablet 00:00: mouth [place] 00 every 8 Medical (eight) Branch hours as needed for Nausea and Vomiting (N/V). ibuprofen 2021-06 Yes [id number] 600mg Take 1 U nivers 600 mg 2-08 tablet by ity of tablet 00:00: mouth [place] 00 every 6 Medical (six) Branch hours as needed for Pain (scale 4-6). benzonatate 2021-06 Yes [id number] 200mg Take 1 Univers 200 mg 2-08 capsule by ity of capsule 00:00: mouth 3 [place] 00 (three) Medical times Branch daily as needed for Cough for up to 20 doses. ondansetron 2021-06 Yes [id number] 4mg Take 1 Univers (ZOFRAN) 4 2-08 tablet by ity of mg tablet 00:00: mouth [place] 00 every 8 Medical (eight) Branch hours as needed for Nausea and Vomiting (N/V). oseltamivir 2021-06- No [id number] 75mg Take 1 Univers (TAMIFLU) 2-08 12-14 capsule by ity of 75 mg 00:00: 05:59 mouth in [place] capsule 00 :00 the Medical morning Branch and 1 capsule in the evening. Do all this for 5 days. oseltamivir 2021-06- No [id number] 75mg Take 1 Univers (TAMIFLU) 1-10 11-16 capsule by ity of 75 mg 00:00: 05:59 mouth in [place] capsule 00 :00 the Medical morning Branch and 1 capsule in the evening. Do all this for 5 days. hydrocortis 2020-06 Yes [id number] Apply to Univers one 2.5 % 1-08 affected ity of ointment 00:00: area(s) 2 [place] 00 (two) Medical times Branch daily. hydrocortis 2020-06 Yes [id number] Apply to Univers one 2.5 % 1-08 affected ity of ointment 00:00: area(s) 2 [place] 00 (two) Medical times Branch daily. hydrocortis 2020-06 Yes [id number] Apply to Univers one 2.5 % 1-08 affected ity of ointment 00:00: area(s) 2 [place] 00 (two) Medical times Branch daily. hydrocortis 2020-06 Yes [id number] Apply to Univers one 2.5 % 1-08 affected ity of ointment 00:00: area(s[place] 2 [place] 00 (two) Medical times Branch daily. hydrocortis 2020-06 Yes [id number] Apply to Univers one 2.5 % 1-08 affected ity of ointment 00:00: area(s) 2 [place] 00 (two) Medical times Branch daily. hydrocortis 2020-06 Yes [id number] Apply to Univers one 2.5 % 1-08 affected ity of ointment 00:00: area(s) 2 [place] 00 (two) Medical times Branch daily. hydrocortis 2020-06 Yes [id number] Apply to Univers one 2.5 % 1-08 affected ity of ointment 00:00: area(s) 2 [place] 00 (two) Medical times Branch daily. hydrocortis 2020-06 Yes [id number] Apply to Univers one 2.5 % 1-08 affected ity of ointment 00:00: area(s) 2 [place] 00 (two) Medical times Branch daily. hydrocortis 2020-06 Yes [id number] Apply to Univers one 2.5 % 1-08 affected ity of ointment 00:00: area(s) 2 [place] 00 (two) Medical times Branch daily. hydrocortis 2020-06 Yes [id number] Apply to Univers one 2.5 % 1-08 affected ity of ointment 00:00: area(s) 2 [place] 00 (two) Medical times Branch daily. hydrocortis 2020-06 Yes [id number] Apply to Univers one 2.5 % 1-08 affected ity of ointment 00:00: area(s) 2 [place] 00 (two) Medical times Branch daily. hydrocortis 2020-06 Yes [id number] Apply to Univers one 2.5 % 1-08 affected ity of ointment 00:00: area(s) 2 [place] 00 (two) Medical times Branch daily. hydrocortis 2020-06 Yes [id number] Apply to Univers one 2.5 % 1-08 affected ity of ointment 00:00: area(s) 2 [place] 00 (two) Medical times Branch daily. hydrocortis 2020-06 Yes [id number] Apply to Univers one 2.5 % 1-08 affected ity of ointment 00:00: area(s) 2 [place] 00 (two) Medical times Branch daily. hydrocortis 2020-06 Yes [id number] Apply to Univers one 2.5 % 1-08 affected ity of ointment 00:00: area(s) 2 [place] 00 (two) Medical times Branch daily. hydrocortis 2020-06 Yes [id number] Apply to Univers one 2.5 % 1-08 affected ity of ointment 00:00: area(s) 2 [place] 00 (two) Medical times Branch daily. hydrocortis 2020-06 Yes [id number] Apply to Univers one 2.5 % 1-08 affected ity of ointment 00:00: area(s) 2 [place] 00 (two) Medical times Branch daily. nystatin 2020-06- No [id number] Apply to Univers 100,000 07-01 area(s) 4 ity of unit/gram 00:00: 05:59 (four) [place] cream 00 :00 times Medical daily for Branch 7 days. HYDROcodone 2020- No 1{tbl} Take 1 U nivers -acetaminop 1-05 01-05 tablet by it y of hen (Eye-QCO) 16:48: 00:00 mouth [place] 10-325 mg 08 :00 every 6 Medical tablet (six) Branch hours as needed for Pain (scale 4-6). HYDROcodone 2020- No 1{tbl} Take 1 U nivers -acetaminop 1-05 01-05 tablet by it y of hen (Eye-QCO) 16:48: 00:00 mouth [place] 10-325 mg [...] mouth [place] 05 daily. Medical Branch multivit 2020-1 Yes 1{tbl} Take 1 Unive rs with [...] mouth [place] 05 daily. Medical Branch multivit 2019- Yes 1{tbl} Take 1 Unive [...] mouth [place] 05 daily. Medical Branch multivit 2019- Yes 1{tbl} Take 1 Unive [...] 18:58: mouth [place] 54 daily. Medical Branch lamoTRIgine 2019-06 Yes 150mg Take 150 U nivers (LAMICTAL) 1-19 mg by ity of 150 mg 16:07: mouth [place] tablet 10 daily. Medical Branch ALPRAZOLAM 2019-06 Yes 1mg Take 1 mg Un chase (XANAX 1-19 by mouth ity of ORAL) 16:07: as needed. [place] 10 Medical Branch lamoTRIgine 2019-06 Yes 150mg [...] mg 16:07: mouth [place] tablet 10 daily. [facility] lamoTRIgine 2019-06 Yes 150mg Take 150 U nivers (LAMICTAL) 1-19 mg by ity of 150 mg 16:07: mouth [place] tablet 10 daily. [facility] lamoTRIgine 2019-06 Yes 150mg Take 150 U nivers (LAMICTAL) 1-19 mg by ity of 150 mg 16:07: mouth [place] tablet 10 daily. [facility] ALPRAZOLAM 2019-06 Yes 1mg Take 1 mg Un chase (XANAX 1-19 by mouth ity of ORAL) 16:07: as needed. [address] lamoTRIgine 2019-06 Yes 150mg Take 150 U nivers (LAMICTAL) 1-19 mg by ity of 150 mg 16:07: mouth [place] tablet 10 daily. [facility] ALPRAZOLAM 2019-06 Yes 1mg Take 1 mg Un chase (XANAX 1-19 by mouth ity of ORAL) 16:07: as needed. [address] lamoTRIgine 2019-06 Yes 150mg Take 150 U nivers (LAMICTAL) 1-19 mg by ity of 150 mg 16:07: mouth [place] tablet 10 daily. [facility] ALPRAZOLAM 2019-06 Yes 1mg Take 1 mg Un chase (XANAX 1-19 by mouth ity of ORAL) 16:07: as needed. [address] lamoTRIgine 2019-06 Yes 150mg Take 150 U nivers (LAMICTAL) 1-19 mg by ity of 150 mg 10:07: mouth [place] tablet 10 daily. [facility] lamoTRIgine 2019-06 Yes 150mg Take 150 U nivers (LAMICTAL) 1-19 mg by ity of 150 mg 10:07: mouth [place] tablet 10 daily. [facility] lamoTRIgine 2019-06 Yes 150mg Take 150 U nivers (LAMICTAL) 1-19 mg by ity of 150 mg 10:07: mouth [place] tablet 10 daily. [facility] lamoTRIgine 2019-06 Yes 150mg Take 150 U nivers (LAMICTAL) 1-19 mg by ity of 150 mg 10:07: mouth [place] tablet 10 daily. [facility] lamoTRIgine 2019-06 Yes 150mg Take 150 U [...] mg 10:07: mouth [place] tablet 10 daily. [facility] Branch lamoTRIgine 2019-06 Yes 150mg Take 150 U nivers (LAMICTAL) 1-19 mg by ity of 150 mg 10:07: mouth [place] tablet 10 daily. [facility] Branch lamoTRIgine 2019-06 Yes 150mg Take 150 U nivers (LAMICTAL) 1-19 mg by ity of 150 mg 10:07: mouth [place] tablet 10 daily. [facility] Branch lamoTRIgine 2019-06 Yes 150mg Take 150 U nivers (LAMICTAL) 1-19 mg by ity of 150 mg 10:07: mouth [place] tablet 10 daily. [facility] Branch lamoTRIgine 2019-06 Yes 150mg Take 150 U nivers (LAMICTAL) 1-19 mg by ity of 150 mg 10:07: mouth [place] tablet 10 daily. [facility] Branch lamoTRIgine 2019-06 Yes 150mg Take 150 U nivers (LAMICTAL) 1-19 mg by ity of 150 mg 10:07: mouth [place] tablet 10 daily. Medical Branch lamoTRIgine 2019-06 Yes 150mg Take 150 U nivers (LAMICTAL) 1-19 mg by ity of 150 mg 10:07: mouth [place] tablet 10 daily. [facility] Branch lamoTRIgine 2019-06 Yes 150mg Take 150 U nivers (LAMICTAL) 1-19 mg by ity of 150 mg 10:07: mouth [place] tablet 10 daily. [facility] lamoTRIgine 2019-06 Yes 150mg Take 150 U nivers (LAMICTAL) 1-19 mg by ity of 150 mg 10:07: mouth [place] tablet 10 daily. [facility] Branch lamoTRIgine 2019-06 Yes 150mg Take 150 U nivers (LAMICTAL) 1-19 mg by ity of 150 mg 10:07: mouth [place] tablet 10 daily. [facility] Branch lamoTRIgine 2019-06 Yes 150mg Take 150 [...] ity of tablet 00:00: mouth 2 [place] 00 (two) Medical times Branch daily. DULoxetine 2019-06 Yes 1{capsu Take 1 Un chase 30 mg 1-13 le} capsule by ity of capsule 00:00: mouth [place] 00 daily. Medical Branch ALPRAZolam 2019-06 Yes 1{tbl} Take 1 Uni vers 0.5 mg 1-13 tablet by ity of tablet 00:00: mouth 2 [place] 00 (two) Medical times Branch daily. DULoxetine 2019-06 [...] 2 00 (two) Medical times Branch daily. DULoxetine 2019-06 Yes 1{capsu Take 1 Un chase 30 mg 1-13 le} capsule by ity of capsule 00:00: mouth [place] 00 daily. Medical Branch ALPRAZolam 2019-06 Yes 1{tbl} Take 1 Uni vers 0.5 mg 1-13 tablet by ity of tablet 00:00: mouth 2 00 (two) Medical times Branch daily. DULoxetine 2019-06 Yes 1{capsu Take 1 Un chase 30 mg 1-13 le} capsule by ity of capsule 00:00: mouth 00 daily. Medical Branch ALPRAZolam 2019-06 Yes 1{tbl} Take 1 Uni vers 0.5 mg 1-13 tablet by ity of tablet 00:00: mouth 2 (two) Medical times Branch daily. busPIRone 2019-06 Yes 1{tbl} Take 1 Univ ers 10 mg 0-28 tablet by ity of tablet 00:00: mouth 2 (two) Medical times Branch daily. busPIRone 2019-06 Yes 1{tbl} Take 1 Univ ers 10 mg 0-28 tablet by ity of tablet 00:00: mouth 2 (two) Medical times Branch daily. busPIRone 2019-06 Yes 1{tbl} Take 1 Univ ers 10 mg 0-28 tablet by ity of tablet 00:00: mouth (two) Medical times Branch daily. busPIRone 2019-06 Yes 1{tbl} Take 1 Univ ers 10 mg 0-28 tablet by ity of tablet 00:00: mouth (two) Medical times Branch daily. busPIRone 2019-06 Yes 1{tbl} Take 1 Univ ers 10 mg 0-28 tablet by ity of tablet 00:00: mouth (two) Medical times Branch daily. busPIRone 2019-06 Yes 1{tbl} Take 1 Univ ers 10 mg 0-28 tablet by ity of tablet 00:00: mouth (two) Medical times Branch daily. busPIRone 2019-06 Yes 1{tbl} Take 1 Univ ers 10 mg 0-28 tablet by ity of tablet 00:00: mouth 2 (two) Medical times Branch daily. busPIRone 2019- Yes 1{tbl} Take 1 Univ ers 10 mg 0-28 tablet by ity of tablet 00:00: mouth 2 (two) Medical times Branch daily. busPIRone 2019-06 Yes 1{tbl} Take 1 Univ ers 10 mg 0-28 tablet by ity of tablet 00:00: mouth 2 (two) Medical times Branch daily. busPIRone 2019- Yes 1{tbl} Take 1 Univ ers 10 mg 0-28 tablet by ity of tablet 00:00: mouth 2 (two) Medical times Branch daily. busPIRone 2020-1 Yes 1{tbl} Take 1 Univ ers 10 mg 0-28 tablet by ity of tablet 00:00: mouth 2 (two) Medical times Branch daily. busPIRone 2020-1 Yes 1{tbl} Take 1 Univ ers 10 mg 0-28 tablet by ity of tablet 00:00: mouth 2 00 (two) Medical times Branch daily. busPIRone 2020-1 Yes 1{tbl} Take 1 Univ ers 10 mg 0-28 tablet by ity of tablet 00:00: mouth 2 (two) Medical times Branch daily. busPIRone 2020-1 Yes 1{tbl} Take 1 Univ ers 10 mg 0-28 tablet by ity of tablet 00:00: mouth 2 (two) Medical times Branch daily. busPIRone 2020-1 Yes 1{tbl} Take 1 Univ ers 10 mg 0-28 tablet by ity of tablet 00:00: mouth 2 (two) Medical times Branch daily. busPIRone 2020-1 Yes 1{tbl} Take 1 Univ ers 10 mg 0-28 tablet by ity of tablet 00:00: mouth 2 (two) Medical times Branch daily. busPIRone 2020-1 Yes 1{tbl} Take 1 Univ ers 10 mg 0-28 tablet by ity of tablet 00:00: mouth 2 (two) Medical times Branch daily. busPIRone 2020-1 Yes 1{tbl} Take 1 Univ ers 10 mg 0-28 tablet by ity of tablet 00:00: mouth 2 (two) Medical times Branch daily. busPIRone 2020-1 Yes 1{tbl} Take 1 Univ ers 10 mg 0-28 tablet by ity of tablet 00:00: mouth 2 00 (two) Medical times Branch daily. busPIRone 2020-1 Yes 1{tbl} Take 1 Univ ers 10 mg 0-28 tablet by ity of tablet 00:00: mouth 2 (two) Medical times Branch daily. busPIRone 2020-1 Yes 1{tbl} Take 1 Univ ers 10 mg 0-28 tablet by ity of tablet 00:00: mouth 2 [place] 00 (two) Medical times Branch daily. busPIRone 2020- [...] (two) Medical times Branch daily. BANOPHEN 25 2019- Yes 1{capsu Take 1 U nivers mg capsule 0-12 le} capsule by ity of 00:00: mouth 00 daily. Medical Branch famotidine 2019- Yes 20mg Take 20 mg U nivers 20 mg 0-12 by mouth ity of tablet 00:00: daily. [place] 00 Medical Branch BANOPHEN 25 2019- Yes 1{capsu Take 1 U nivers mg capsule 0-12 le} capsule by ity of 00:00: mouth [place] 00 daily. Medical Branch famotidine 2019- Yes 20mg Take 20 mg [facility] nivers 20 mg 0-12 by mouth ity of tablet 00:00: daily. Medical Branch BANOPHEN 25 2019-06 Yes 1{capsu Take 1 U nivers mg capsule 0-12 le} capsule by ity of 00:00: mouth [place] 00 daily. Medical Branch famotidine 2019-06 Yes [...] le} capsule by ity of 00:00: mouth every 4 Medical (four) Branch hours as [...] mouth ity of tablet 00:00: 00:00 daily. [place] 00 :00 Medical Branch famotidine 2019-06- No 20mg Take 20 mg [facility] 20 mg 012 05-24 by mouth ity of tablet 00:00: 00:00 daily. [place] 00 :00 Medical Branch traZODone 2019-06 Yes 1{tbl} Take 1 Univ ers 100 mg 0-05 tablet by ity of tablet 00:00: mouth at [place] 00 bedtime. Medical Branch traZODone 2019-06 Yes 1{tbl} Take 1 [facility] ers 100 mg 0-05 tablet by ity of tablet 00:00: mouth at [place] [address] bedtime. Medical Branch traZODone 2019-06 Yes 1{tbl} Take 1 [facility] ers 100 mg 0-05 tablet by ity of tablet 00:00: mouth at [place] [address] bedtime. Medical Branch traZODone 2019-06 Yes 1{tbl} Take 1 [facility] ers 100 mg 0-05 tablet by ity of tablet 00:00: mouth at [place] [address] bedtime. Medical Branch traZODone 2019-06 Yes 1{tbl} Take 1 [facility] ers 100 mg 0-05 tablet by ity of tablet 00:00: mouth at [place] [address] bedtime. Medical Branch traZODone 2019-06 Yes 1{tbl} Take 1 [facility] ers 100 mg 0-05 tablet by ity of tablet 00:00: mouth at [place] [address] bedtime. Medical Branch traZODone 2019-06 Yes 1{tbl} Take 1 [facility] ers 100 mg 0-05 tablet by ity of tablet 00:00: mouth at [place] [address] bedtime. Medical Branch traZODone 2019-06 Yes 1{tbl} Take 1 [facility] ers 100 mg 0-05 tablet by ity of tablet 00:00: mouth at [place] [address] bedtime. Medical Branch traZODone 2019-06 Yes 1{tbl} Take 1 [facility] ers 100 mg 0-05 tablet by ity of tablet 00:00: mouth at [place] [address] bedtime. Medical Branch traZODone 2019-06 Yes 1{tbl} Take 1 [facility] ers 100 mg 0-05 tablet by ity of tablet 00:00: mouth at [place] [address] bedtime. Medical Branch traZODone 2020-1 Yes 1{tbl} Take 1 [facility] ers 100 mg 0-05 tablet by ity of tablet 00:00: mouth at [place] bedtime. Medical Branch traZODone 2020- Yes 1{tbl} Take 1 [facility] ers 100 mg 0-05 tablet by ity of tablet 00:00: mouth at [place] bedtime. Medical Branch traZODone 2020- Yes 1{tbl} Take 1 [facility] ers 100 mg 0-05 tablet by ity of tablet 00:00: mouth at [place] bedtime. Medical Branch traZODone 2020- Yes 1{tbl} Take 1 [facility] 100 mg 0-05 tablet by ity of tablet 00:00: mouth at [place] bedtime. Medical Branch traZODone 2020- Yes 1{tbl} Take 1 [facility] ers 100 mg 0-05 tablet by ity of tablet 00:00: mouth at [place] bedtime. Medical Branch traZODone 2019- Yes 1{tbl} Take 1 [facility] ers 100 mg 0-05 tablet by ity of tablet 00:00: mouth at [place] [address] bedtime. Medical Branch traZODone 2020- Yes 1{tbl} Take 1 [facility] ers 100 mg 0-05 tablet by ity of tablet 00:00: mouth at [place] [address] bedtime. Medical Branch traZODone 2020-1 Yes 1{tbl} Take 1 [facility] 100 mg 0-05 tablet by ity of tablet 00:00: mouth at [place] [address] bedtime. Medical Branch traZODone 2020-1 Yes 1{tbl} Take 1 [facility] ers 100 mg 0-05 tablet by ity of tablet 00:00: mouth at [place] [address] bedtime. Medical Branch traZODone 2020-1 Yes 1{tbl} Take 1 [facility] ers 100 mg 0-05 tablet by ity of tablet 00:00: mouth at [place] bedtime. Medical Branch traZODone 2020-1 Yes 1{tbl} Take 1 [facility] ers 100 mg 0-05 tablet by ity of tablet 00:00: mouth at [place] bedtime. Medical Branch traZODone 2020-1 Yes 1{tbl} Take 1 [facility] 100 mg 0-05 tablet by ity of tablet 00:00: mouth at [place] [address] bedtime. Medical Branch traZODone 2020-1 Yes 1{tbl} Take 1 [facility] ers 100 mg 0-05 tablet by ity of tablet 00:00: mouth at [place] 00 bedtime. Medical Branch traZODone 2019- Yes 1{tbl} Take 1 [facility] 100 mg 0-05 tablet by ity of tablet 00:00: mouth at [place] 00 bedtime. Medical Branch traZODone 2019- Yes 1{tbl} Take 1 [facility] 100 mg 0-05 tablet by ity of tablet 00:00: mouth at [place] 00 bedtime. Medical Branch traZODone 2019- Yes 1{tbl} Take 1 [facility] 100 mg 0-05 tablet by ity of tablet 00:00: mouth at [place] 00 bedtime. Medical Branch traZODone 2019- Yes 1{tbl} Take 1 [facility] 100 mg 0-05 tablet by ity of tablet 00:00: mouth at [place] 00 bedtime. Medical Branch traZODone 2019- Yes 1{tbl} Take 1 [facility] 100 mg 0-05 tablet by ity of tablet 00:00: mouth at [place] 00 bedtime. Medical Branch traZODone 2019- Yes 1{tbl} Take 1 [facility] ers 100 mg 0-05 tablet by ity of tablet 00:00: mouth at [place] 00 bedtime. Medical Branch traZODone 2019- Yes 1{tbl} Take 1 [facility] ers 100 mg 0-05 tablet by ity of tablet 00:00: mouth at [place] [address] bedtime. Medical Branch fluticasone 2020-0 Yes 50{spra Use 50 U nivers propionate 9-27 y} Sprays in ity of 50 00:00: each [place] mcg/actuati 00 nostril 2 Med ical on nasal (two) Branch spray times daily. fluticasone 2020-0 Yes 50{spra Use 50 U nivers propionate 9-27 y} Sprays in ity of 50 00:00: each [place] mcg/actuati 00 nostril 2 Med ical on nasal (two) Branch spray times daily. fluticasone 2020-0 Yes 50{spra Use 50 U nivers propionate 9-27 y} Sprays in ity of 50 00:00: each [place] mcg/actuati 00 nostril 2 Med ical on [...] nasal (two) Branch spray times daily. fluticasone Yes 50{spra Use 50 U nivers propionate [...] mouth ity of ORAL) 16:22: as needed. [address] Branch lamoTRIgine Yes 150mg Take 150 U nivers (LAMICTAL) 6-12 mg by ity of 150 mg 16:22: mouth [place] tablet 38 daily. [facility] Branch ALPRAZOLAM Yes 1mg Take 1 mg [facility] (XANAX 6-12 by mouth ity of ORAL) 16:22: as needed. [address] Branch Polyethylen Yes Take 1 Univ [...] as needed for Pain (scale 4-6). HYDROcodone 2018-0 2020- No 1{tbl} Take 1 U nivers -acetaminop 5-17 11-19 tablet by it y of hen 5-325 00:00: 00:00 mouth [place] mg tablet 00 :00 every 6 Medical (six) Branch hours as needed for Pain (scale 4-6). HYDROcodone 2017- 2020- No 1{tbl} Take 1 U nivers -acetaminop 5-17 11-19 tablet by it y of hen 5-325 00:00: 00:00 mouth [place] mg tablet 00 :00 every 6 Medical (six) Branch hours as needed for Pain (scale 4-6). HYDROcodone 2017-2019- No 1{tbl} Take 1 U nivers -acetaminop [...] Branch hours as needed for Alternate with [place] for pain scale 4-6. docusate 2017-0 Yes 100mg Take 1 Univer s 100 mg 5-06 capsule by ity of capsule 00:00: mouth 2 00 (two) Medical times Branch daily as needed for Constipati on. ibuprofen 2017-0 Yes 600mg Take 1 Unive rs 600 mg 5-06 tablet by ity of tablet 00:00: mouth [place] 00 every 6 Medical (six) Branch hours as needed for Alternate with [place] for pain scale 4-6. docusate 2017-0 2020- No 100mg Take 1 Unive rs 100 mg 5-06 11-19 capsule by ity of capsule 00:00: 00:00 mouth 2 [place] 00 :00 (two) Medical times Branch daily as needed for Constipati on. ibuprofen 2017-0 2020- No 600mg Take 1 Univ ers 600 mg 5-06 11-19 tablet by ity of tablet 00:00: 00:00 mouth [place] 00 :00 every 6 Medical (six) Branch hours as needed for Alternate with [place] for pain scale 4-6. docusate 2020- No [...] Branch hours as needed for Alternate with [place] for pain scale 4-6. docusate 2020- No [...] Branch hours as needed for Alternate with [place] for pain scale 4-6. citalopram Yes 40mg Take 1 Unive rs 40 mg 1-27 tablet by ity of tablet 00:00: mouth [place] 00 daily. Medical Branch citalopram Yes 40mg Take 1 Unive rs 40 mg 1-27 tablet by ity of tablet 00:00: mouth [place] 00 daily. Medical Branch citalopram 2020- No 40mg [...] [place] 00 :00 daily. Medical Branch clonazePAM Yes .25mg Take 0.5 [facility] chase 0.5 mg 1-26 tablets by ity of tablet 00:00: mouth 2 [place] 00 (two) Medical times Branch daily. hydrOXYzine 2018-0 Yes 25mg Take 1 Univ ers 25 mg 1-26 tablet by ity of tablet 00:00: mouth [place] 00 every 6 Medical (six) Branch hours as needed for Anxiety. traZODONE 2018-0 Yes 50mg Take 1 Univer s 50 mg 1-26 tablet by ity of tablet 00:00: mouth at [place] 00 bedtime as Medical needed for Branch Insomnia. melatonin 3 2018-0 Yes 3mg Take 1 Univ ers mg tablet 1-26 tablet by ity o f 00:00: mouth at [place] 00 bedtime. Medical Branch clonazePAM 2018-0 Yes .25mg Take 0.5 [facility] chase 0.5 mg 1-26 tablets by ity of tablet 00:00: mouth 2 [place] 00 (two) Medical times Branch daily. hydrOXYzine 2018-0 Yes 25mg Take 1 Univ ers 25 mg 1-26 tablet by ity of tablet 00:00: mouth [place] 00 every 6 Medical (six) Branch hours as needed for Anxiety. traZODONE 2018-0 Yes 50mg Take 1 Univer s 50 mg 1-26 tablet by ity of tablet 00:00: mouth at [place] 00 bedtime as Medical needed for Branch Insomnia. melatonin 3 2018-0 Yes 3mg Take 1 Univ ers mg tablet 1-26 tablet by ity o f 00:00: mouth at [place] 00 bedtime. Medical Branch clonazePAM 2017-0 2020- No .25mg Take 0.5 U nivers 0.5 mg 1-26 11-19 tablets by ity of tablet 00:00: 00:00 mouth 2 [place] 00 :00 (two) Medical times Branch daily. hydrOXYzine 2018-0 2020- No 25mg Take 1 Uni vers 25 mg 1-26 11-19 tablet by ity of tablet 00:00: 00:00 mouth [place] 00 :00 every 6 Medical (six) Branch hours as needed for Anxiety. traZODONE 2018-0 2020- No 50mg Take 1 Unive rs 50 mg 1-26 11-19 tablet by ity of tablet 00:00: 00:00 mouth at [place] 00 :00 bedtime as Medical needed for Branch Insomnia. melatonin 3 2017-0 2020- No 3mg Take 1 Uni vers mg tablet 1- 11-19 tablet by ity of 00:00: 00:00 mouth at [place] 00 :00 bedtime. Medical Branch clonazePAM 2020- No .25mg Take 0.5 U nivers 0.5 mg -19 05-19 tablets by ity of tablet 00:00: 00:00 mouth 2 [place] 00 :00 (two) Medical times Branch daily. hydrOXYzine 2020- No 25mg Take 1 Uni vers 25 mg - 11-19 tablet by ity of tablet 00:00: 00:00 mouth [place] 00 :00 every 6 Medical (six) Branch hours as needed for Anxiety. traZODONE 2020- No 50mg Take 1 Unive rs 50 mg 07-19-19 tablet by ity of tablet 00:00: 00:00 [...] [place] 00 :00 bedtime. Medical Branch omeprazole Yes 1{capsu Take 1 [facility] 40 mg 4-15 le} capsule by ity of capsule 00:00: mouth [place] 00 daily. Medical Branch omeprazole Yes 1{capsu Take 1 [facility] 40 [...] omeprazole 2016-0 Yes 1{capsu Take 1 Un hcase 40 mg 4-15 le} capsule by ity [...] mouth [place] 00 daily. Medical Branch ALPRAZolam ALPRAZolam No 1{table BID ALPRAZolam 0.5 MG 0.5 MG t} 0.5 MG Omeprazole Omeprazole No BID Omeprazole 20 MG 20 MG 20 MG traZODone traZODone No 1{table QD traZODone HCl 50 MG HCl 50 MG t_at_be HCl 50 MG dtime_a s_neede d} lamoTRIgine lamoTRIgine No 1{table QD lamoTRIgin 150 MG 150 MG t} e 150 MG Daily Daily No 1{table QD Daily Vitamin - Vitamin - t} Vitamin - Biotin Biotin No Biotin busPIRone busPIRone No 1{table BID busPIRone HCl 10 MG HCl 10 MG t} HCl 10 MG DULoxetine DULoxetine No 1{capsu QD DULoxetine HCl 30 MG HCl 30 MG le} HCl 30 MG ALPRAZolam ALPRAZolam No 1{table BID ALPRAZolam 0.5 MG 0.5 MG t} 0.5 MG Omeprazole Omeprazole No BID Omeprazole 20 MG 20 MG 20 MG traZODone traZODone No 1{table QD traZODone HCl 50 MG HCl 50 MG t_at_be HCl 50 MG dtime_a s_neede d} lamoTRIgine lamoTRIgine No 1{table QD lamoTRIgin 150 MG 150 MG t} e 150 MG Daily Daily No 1{table QD Daily Vitamin - Vitamin - t} Vitamin - Biotin Biotin No Biotin busPIRone busPIRone No 1{table BID busPIRone HCl 10 MG HCl 10 MG t} HCl 10 MG DULoxetine DULoxetine No 1{capsu QD DULoxetine HCl 30 MG HCl 30 MG le} HCl 30 MG Immunizations Ordered Filled Immunization Date Status Comments Sour e Immunization Name Name Prevnar 20 (PCV20) Prevnar 20 (PCV20) 2022-02-19 Completed [facility] - 13:34:00 [facility] Prevnar 20 (PCV20) Prevnar 20 (PCV20) 2022-02-19 Completed [facility] - 13:34:00 [facility] SARS-COV-2 COVID-19 2020-10-03 Completed Unive rsity of PFIZER VACCINE 00:00:00 [place] [facility] Branch SARS-COV-2 COVID-19 2020-10-03 Completed Unive rsity of PFIZER VACCINE 00:00:00 [place] [facility] Branch SARS-COV-2 COVID-19 2020-10-03 Completed Unive rsity of PFIZER VACCINE 00:00:00 [facility] SARS-COV-2 COVID-19 2020-10-03 Completed Unive rsity of PFIZER VACCINE 00:00:00 [facility] SARS-COV-2 COVID-19 2020-10-03 Completed Unive rsity of PFIZER VACCINE 00:00:00 [facility] SARS-COV-2 COVID-19 2020-10-03 Completed Unive rsity of PFIZER VACCINE 00:00:00 [facility] SARS-COV-2 COVID-19 2020-10-03 Completed Unive rsity of PFIZER VACCINE 00:00:00 [facility] SARS-COV-2 COVID-19 2020-10-03 Completed Unive rsity of PFIZER VACCINE 00:00:00 [facility] SARS-COV-2 COVID-19 2020-10-03 Completed Unive rsity of PFIZER VACCINE 00:00:00 [facility] SARS-COV-2 COVID-19 2020-10-03 Completed Unive rsity of PFIZER VACCINE 00:00:00 [facility] SARS-COV-2 COVID-19 2020-10-03 Completed Unive rsity of PFIZER VACCINE 00:00:00 [facility] SARS-COV-2 COVID-19 2020-10-03 Completed Unive rsity of PFIZER VACCINE 00:00:00 [facility] SARS-COV-2 COVID-19 2020-10-03 Completed Unive rsity of PFIZER VACCINE 00:00:00 [facility] SARS-COV-2 COVID-19 2020-10-03 Completed Unive rsity of PFIZER VACCINE 00:00:00 [facility] SARS-COV-2 COVID-19 2020-10-03 Completed Unive rsity of PFIZER VACCINE 00:00:00 [facility] SARS-COV-2 COVID-19 2020-10-03 Completed Unive rsity of PFIZER VACCINE 00:00:00 [place] [facility] SARS-COV-2 COVID-19 2020-10-03 Completed Unive rsity of PFIZER VACCINE 00:00:00 [place] [facility] SARS-COV-2 COVID-19 2020-10-03 Completed Unive rsity of PFIZER VACCINE 00:00:00 [place] [facility] SARS-COV-2 COVID-19 2020-09-12 Completed Unive rsity of PFIZER VACCINE 00:00:00 [facility] SARS-COV-2 COVID-19 2020-09-12 Completed Unive rsity of PFIZER VACCINE 00:00:00 [place] [facility] SARS-COV-2 COVID-19 2020-09-12 Completed Unive rsity of PFIZER VACCINE 00:00:00 [facility] SARS-COV-2 COVID-19 2020-09-12 Completed Unive rsity of PFIZER VACCINE 00:00:00 [facility] SARS-COV-2 COVID-19 2020-09-12 Completed Unive rsity of PFIZER VACCINE 00:00:00 [facility] SARS-COV-2 COVID-19 2020-09-12 Completed Unive rsity of PFIZER VACCINE 00:00:00 [facility] SARS-COV-2 COVID-19 2020-09-12 Completed Unive rsity of PFIZER VACCINE 00:00:00 [facility] SARS-COV-2 COVID-19 2020-09-12 Completed Unive rsity of PFIZER VACCINE 00:00:00 [facility] SARS-COV-2 COVID-19 2020-09-12 Completed Unive rsity of PFIZER VACCINE 00:00:00 [facility] SARS-COV-2 COVID-19 2020-09-12 Completed Unive rsity of PFIZER VACCINE 00:00:00 [facility] SARS-COV-2 COVID-19 2020-09-12 Completed Unive rsity of PFIZER VACCINE 00:00:00 [facility] SARS-COV-2 COVID-19 2020-09-12 Completed Unive rsity of PFIZER VACCINE 00:00:00 [facility] SARS-COV-2 COVID-19 2020-09-12 Completed Unive rsity of PFIZER VACCINE 00:00:00 [facility] SARS-COV-2 COVID-19 2020-09-12 Completed Unive rsity of PFIZER VACCINE 00:00:00 [facility] SARS-COV-2 COVID-19 2020-09-12 Completed Unive rsity of PFIZER VACCINE 00:00:00 [facility] SARS-COV-2 COVID-19 2020-09-12 Completed Unive rsity of PFIZER VACCINE 00:00:00 [facility] SARS-COV-2 COVID-19 2020-09-12 Completed Unive rsity of PFIZER VACCINE 00:00:00 [facility] SARS-COV-2 COVID-19 2020-09-12 Completed Unive rsity of PFIZER VACCINE 00:00:00 [facility] SARS-COV-2 COVID-19 2020-09-12 Completed Unive rsity of PFIZER VACCINE 00:00:00 [facility] Influenza Virus 2010-08-27 Completed Universit y of Vaccine 00:00:00 [facility] Influenza Virus 2010-08-27 Completed Universit y of Vaccine 00:00:00 [facility] Influenza Virus 2010-08-27 Completed Universit y of Vaccine 00:00:00 [facility] Influenza Virus 2010-08-27 Completed Universit y of Vaccine 00:00:00 [facility] Influenza Virus 2010-08-27 Completed Universit y of Vaccine 00:00:00 [facility] Influenza Virus 2010-08-27 Completed Universit y of Vaccine 00:00:00 [facility] Influenza Virus 2010-08-27 Completed Universit y of Vaccine 00:00:00 [facility] Influenza Virus 2010-08-27 Completed Universit y of Vaccine 00:00:00 [facility] Influenza Virus 2010-08-27 Completed Universit y of Vaccine 00:00:00 [facility] Influenza Virus 2010-08-27 Completed Universit y of Vaccine 00:00:00 [facility] Influenza Virus 2010-08-27 Completed Universit y of Vaccine 00:00:00 [facility] Influenza Virus 2010-08-27 Completed Universit y of Vaccine 00:00:00 [facility] Influenza Virus 2010-08-27 Completed Universit y of Vaccine 00:00:00 [facility] Influenza Virus 2010-08-27 Completed Universit y of Vaccine 00:00:00 [facility] Influenza Virus 2010-08-27 Completed Universit y of Vaccine 00:00:00 [facility] Influenza Virus 2010-08-27 Completed Universit y of Vaccine 00:00:00 [facility] Influenza Virus 2010-08-27 Completed Universit y of Vaccine 00:00:00 [facility] Influenza Virus 2010-08-27 Completed Universit y of Vaccine 00:00:00 [facility] Influenza Virus 2010-08-27 Completed Universit y of Vaccine 00:00:00 [facility] Influenza Virus 2010-08-27 Completed Universit y of Vaccine 00:00:00 [facility] Influenza Virus 2010-08-27 Completed Universit y of Vaccine 00:00:00 [facility] Influenza Virus 2010-08-27 Completed Universit y of Vaccine 00:00:00 [facility] Influenza Virus 2010-08-27 Completed Universit y of Vaccine 00:00:00 [facility] Influenza Virus 2010-08-27 Completed Universit y of Vaccine 00:00:00 [facility] Influenza Virus 2010-08-27 Completed Universit y of Vaccine 00:00:00 [facility] Influenza Virus 2010-08-27 Completed Universit y of Vaccine 00:00:00 [facility] Influenza Virus 2010-08-27 Completed Universit y of Vaccine 00:00:00 [facility] Influenza Virus 2010-08-27 Completed Universit y of Vaccine 00:00:00 [facility] Influenza Virus 2010-08-27 Completed Universit y of Vaccine 00:00:00 [facility] Influenza Virus 2010-08-27 Completed Universit y of Vaccine 00:00:00 [facility] Influenza Virus 2010-08-27 Completed Universit y of Vaccine 00:00:00 [facility] Influenza Virus 2010-08-27 Completed Universit y of Vaccine 00:00:00 [facility] Influenza Virus 2010-08-27 Completed Universit y of Vaccine 00:00:00 [facility] Influenza Virus 2010-08-27 Completed Universit y of Vaccine 00:00:00 [facility] Influenza Virus 2010-08-27 Completed Universit y of Vaccine 00:00:00 [facility] Influenza Virus 2010-08-27 Completed Universit y of Vaccine 00:00:00 [facility] Influenza Virus 2010-08-27 Completed Universit y of Vaccine 00:00:00 [facility] Vital Signs Vital Name Observation Time Observation Value Comments Source Body height 2022-10-25 162.6 cm University of 18:42:00 [facility] Body weight 2022-10-25 104.327 kg University of 18:42:00 [facility] BMI 2022-10-25 39.48 kg/m2 University of 18:42:00 [facility] Systolic blood 2022-10-09 176 mm[Hg] University of pressure 19:02:00 [facility] Diastolic blood 2022-10-09 78 mm[Hg] University o f pressure 19:02:00 [facility] Heart rate 2022-10-09 68 /min University of 19:02:00 [facility] Body temperature 2022-10-09 36.61 [place]am University of 19:02:00 [facility] Respiratory rate 2022-10-09 16 /min University of 19:02:00 [facility] Body height 2022-10-09 170.2 cm University of 19:02:00 [facility] Body weight 2022-10-09 104.146 kg University of 19:02:00 [facility] BMI 2022-10-09 35.96 kg/m2 University of 19:02:00 [facility] Oxygen saturation 2022-10-09 98 /min University of in Arterial blood 19:02:00 [facility] crispin by Pulse oximetry Branch Systolic blood 2022-07-17 123 mm[Hg] University of pressure 20:42:00 [facility] Diastolic blood 2022-07-17 72 mm[Hg] University o f pressure 20:42:00 [facility] Heart rate 2022-07-17 84 /min University of 20:42:00 [facility] Body temperature 2022-07-17 36.56 [facility] University of 20:42:00 [facility] Respiratory rate 2022-07-17 20 /min University of 20:42:00 [facility] Body height 2022-07-17 170.2 cm University of 20:42:00 [facility] Body weight 2022-07-17 108.098 kg University of 20:42:00 [facility] BMI 2022-07-17 37.33 kg/m2 University of 20:42:00 [facility] Oxygen saturation 2022-07-17 98 /min University of in Arterial blood 20:42:00 [place] [facility]i crispin by Pulse oximetry Branch Systolic blood 2022-05-31 177 mm[Hg] University of pressure 15:04:00 [place] [facility] Diastolic blood 2022-05-31 86 mm[Hg] University o f pressure 15:04:00 [place] [facility] Heart rate 2022-05-31 80 /min University of 15:04:00 [place] [facility] Body temperature 2022-05-31 37 Mariam University of 15:04:00 [facility] Branch Respiratory rate 2022-05-31 20 /min University of 15:04:00 [place] [facility] Body weight 2022-05-31 95.255 kg University of 15:04:00 [facility] Branch BMI 2022-05-31 32.89 kg/m2 University of 15:04:00 [facility] Oxygen saturation 2022-05-31 99 /min University of in Arterial blood 15:04:00 [place] Medi crispin by Pulse oximetry Branch Systolic blood 2022-05-02 157 mm[Hg] University of pressure 20:26:00 [facility] Diastolic blood 2022-05-02 97 mm[Hg] University o f pressure 20:26:00 [facility] Heart rate 2022-05-02 95 /min University of 20:25:00 [facility] Body temperature 2022-05-02 36.67 Mariam University of 20:25:00 [facility] Respiratory rate 2022-05-02 18 /min University of 20:25:00 [facility] Body weight 2022-05-02 104.282 kg University of 20:25:00 [facility] BMI 2022-05-02 36.01 kg/m2 University of 20:25:00 [facility] Oxygen saturation 2022-05-02 97 /min University of in Arterial blood 20:25:00 [place] Medi crispin by Pulse oximetry Branch Systolic blood 2022-04-03 187 mm[Hg] University of pressure 19:47:00 [place] [facility] Diastolic blood 2022-04-03 83 mm[Hg] University o f pressure 19:47:00 [facility] Heart rate 2022-04-03 79 /min University of 19:44:00 [facility] Body temperature 2022-04-03 36.78 Mari[place] University of 19:44:00 [facility] Branch Respiratory rate 2022-04-03 18 /min University of 19:44:00 [facility] Body height 2022-04-03 170.2 cm University of 19:44:00 [facility] Body weight 2022-04-03 106.595 kg University of 19:44:00 [facility] BMI 2022-04-03 36.81 kg/m2 University of 19:44:00 [facility] Oxygen saturation 2022-04-03 97 /min University of in Arterial blood 19:44:00 [place] [facility] by Pulse oximetry Branch height 2022-02-19 63.5 [in_i] [facility] 13:20:00 [facility] weight 2022-02-19 232 [lb_av] [facility] - 13:20:00 [facility] temperature 2022-02-19 97.6 [degF] [facility] - 13:20:00 [facility] bmi 2022-02-19 40.45 kg/m2 [facility] - 13:20:00 [facility] oximetry 2022-02-19 97 % [facility] - 13:20:00 [facility] respiratory rate 2022-02-19 16 /min [facility] - 13:20:00 [facility] blood pressure 2022-02-19 124 mm[Hg] [facility] - systolic 13:20:00 [facility] blood pressure 2022-02-19 60 mm[Hg] [facility] - diastolic 13:20:00 [facility] Systolic blood 2021-05-01 150 mm[Hg] University of pressure 23:42:00 [facility] Diastolic blood 2021-05-01 80 mm[Hg] University o f pressure 23:42:00 [facility] Heart rate 2021-05-01 74 /min University of 23:38:00 [facility] Body temperature 2021-05-01 36.33 Mariam University of 23:38:00 [facility] Respiratory rate 2021-05-01 20 /min University of 23:38:00 [facility] Body weight 2021-05-01 109.408 kg University of 23:38:00 [facility] BMI 2021-05-01 37.78 kg/m2 University of 23:38:00 [facility] Oxygen saturation 2021-05-01 98 /min University of in Arterial blood 23:38:00 [place] [facility] by Pulse oximetry Branch Systolic blood 2020-06-28 157 mm[Hg] University of pressure 16:49:00 [facility] Diastolic blood 2020-06-28 90 mm[Hg] University o f pressure 16:49:00 [facility] Heart rate 2020-06-28 67 /min University of 16:46:00 [facility] Body temperature 2020-06-28 36.5 Mariam University of 16:46:00 [facility] Respiratory rate 2020-06-28 12 /min University of 16:46:00 [facility] Body height 2020-06-28 170.2 cm University of 16:46:00 [facility] Body weight 2020-06-28 106.913 kg University of 16:46:00 [facility] BMI 2020-06-28 36.92 kg/m2 University of 16:46:00 [facility] Oxygen saturation 2020-06-28 97 /min University of in Arterial blood 16:46:00 [place] [facility] by Pulse oximetry Branch Systolic blood 2020-05-24 161 mm[Hg] Pt states she University o f pressure 20:15:00 is nervous [facility] Diastolic blood 2020-05-24 84 mm[Hg] Pt states she University of pressure 20:15:00 is nervous [facility] Heart rate 2020-05-24 56 /min University of 20:15:00 [facility] Body temperature 2020-05-24 36.5 Mariam University of 20:15:00 [facility] Respiratory rate 2020-05-24 18 /min University of 20:15:00 [facility] Body height 2020-05-24 170.2 cm University of 20:15:00 [facility] Body weight 2020-05-24 108.274 kg University of 20:15:00 [facility] BMI 2020-05-24 37.39 kg/m2 University of 20:15:00 [facility] Oxygen saturation 2020-05-24 97 /min University of in Arterial blood 20:15:00 [place] [facility] by Pulse oximetry Branch Systolic blood 2020-05-12 129 mm[Hg] University [facility] pressure 16:05:00 [facility] Diastolic blood 2020-05-12 73 mm[Hg] University o f pressure 16:05:00 [facility] Heart rate 2020-05-12 67 /min University of 16:05:00 [facility] Body temperature 2020-05-12 36.22 Mariam University of 16:05:00 [facility] Body weight 2020-05-12 107.502 kg University of 16:05:00 [facility] BMI 2020-05-12 37.12 kg/m2 University 16:05:00 [facility] Oxygen saturation 2020-05-12 97 /min [facility] in Arterial blood 16:05:00 [place] [facility] by Pulse oximetry Branch Systolic blood 2020-05-12 129 mm[Hg] University [facility] pressure 16:05:00 [facility] Diastolic blood 2020-05-12 73 mm[Hg] [place] o f pressure 16:05:00 [facility] Heart rate 2020-05-12 67 /min University 16:05:00 [facility] Body temperature 2020-05-12 36.22 Mariam [facility] 16:05:00 [facility] Body weight 2020-05-12 107.502 kg [facility] 16:05:00 [facility] BMI 2020-05-12 37.12 kg/m2 University 16:05:00 [facility] Oxygen saturation 2020-05-12 97 /min [facility] in Arterial blood 16:05:00 [facility] by Pulse oximetry Branch Procedures Procedure Date / Time Performing Clinician Source Performed CONSENT/REFUSAL FOR 2022-11-08 18:33:17 Doctor Unassigned, No [facility] [place] [facility] Name Medical Branch XR KNEE 3 VW RIGHT 2022-10-09 19:26:17 Joi Eli [address] [facility] PATIENT FINANCIAL 2022-10-09 18:49:53 Doctor Unassigned, No [facility] POLICY Name Medical Branch RAPID INFLUENZA A/B 2022-05-31 15:11:00 Brandon Bowser [facility] CONSENT/REFUSAL FOR 2022-05-31 14:51:58 Doctor Unassigned, No [facility] [place] [facility] TREAT[facility] Name Medical Branch AUTHORIZATION FOR 2022-04-25 05:01:00 Doctor Unassigned, No [facility] RELEASE OF PHI Name Medical Branch CT ABDOMEN PELVIS WO 2020-06-02 19:22:58 Theo Silveira [facility] CONTRAST Medical Branch CONSENT/REFUSAL FOR 2020-06-02 19:09:03 Doctor Unassigned, No [facility] [place] DI[facility] TREATMENT Name Medical Branch ASSIGNMENT OF BENEFITS 2020-06-02 19:08:50 Doctor Unassigned, No [facility] Medical Branch ASSIGNMENT OF BENEFITS 2020-05-18 16:46:58 Doctor Unassigned, No [facility] Name Medical Branch ASSIGNMENT OF BENEFITS 2020-05-12 15:54:07 Doctor Unassigned, No [facility] Name Medical Branch REFERRAL- 2020-04-12 05:01:00 Doctor Unassigned, No [facility] REQUEST/RESPONSE Name Medical Branch [id number] 2019-11-10 00:00:00 SCATE [facility] [id number] 2019-11-10 00:00:00 SCATE [facility] Encounters Start End Encounter Admission Attending Care Care Encounter Source Date/Time Date/Time Type Type Clinicians Facility Department ID 2022-03-21 Outpatient [facility] [id number] CT 10:57:56 [id number] [facility] 2022-02-28 Outpatient [facility] [id number] CT 09:43:32 [id number] [facility] 2022-02-16 Outpatient F[facility] [id number] [facility] 13:31:01 Rita [id number] [facility] 2022-02-15 Outpatient [facility] [id number] CT 12:18:04 [id number] [facility] 2021-04-22 [facility] [id number] Univers 08:12:51 JENNIFER [facility] 2021-04-22 Outpatient [facility] [id number] Univers 07:01:10 [facility] 2019-10-30 Inpatient [facility] ENDO [id number] [facility] 09:30:00 , Immanuel 53 [facility] 2022-11-08 2022-11-[address] [facility] [id number] Univers 13:33:26 23:59:00 HOANG espinoza [facility] 2022-11-08 2022-11-08 [facility] 1.2.840.114 [id number] Univers 13:33:26 23:59:00 Encounter Hoang DARLING 350.1.13.10 [facility] 4.2.7.2.686 [facility] [id number] [facility] 804 Branch 2022-11-08 2022-11-08 Orders Doctor JOE 1.2.840.114 [id number] Univers 00:00:00 00:00:00 Only Unassigned, BAKARI 350.1.13.10 ity of [place] [facility] 4.2.7.2.686 Demario as [id number] [address] 2022-10-25 2022-10-[address] [facility] [id number] Univers 13:50:00 23:59:00 HOANG ity [facility] 2022-10-25 2022-10-25 Office [facility] 1.2.840.114 [id number] Univers 13:45:00 14:19:50 Visit Hoang HEALTH 350.1.13.10 it [facility] 4.2.7.2.686 Demario as FARRUKH?BLEA [phone] [facility] 198 [facility] OFFICE [facility] 2022-10-09 2022-10-09 Outpatient R SREEDHAR [facility] [id number] Univers 14:13:21 23:59:00 JOI ity [facility] 2022-10-09 2022-10-09 [facility] 1.2.840.114 [id number] Univers 14:13:21 23:59:00 Encounter Joi HEALTH 350.1.13.10 ity [facility] 4.2.7.2.686 Demario as FARRUKH?BLEA [id number] Ne nathan VO 808 [facility] OFFICE [facility] 2022-10-09 2022-10-09 Urgent Joi Eli [facility] 1.2.840.114 [id number] Univers 14:00:00 14:20:00 Care Unknown, Attending HEALTH 350.1.13.10 ity [facility] 4.2.7.2.686 Demario as FARRUKH?BLEA [phone] Ne nathan EUCEDADIANE [address] MEDICAL OFFICE [facility] 2022-10-09 2022-10-09 Orders Doctor JOE 1.2.840.114 [id number] Univers 00:00:00 00:00:00 Only Unassigned, BAKARI 350.1.13.10 ity of [place] [facility] 4.2.7.2.686 Demario as [phone] [address] 2022-07-17 2022-07-17 Outpatient R [facility] [id number] Univers 14:20:00 14:55:31 JOI itausten of [facility] 2022-07-17 2022-07-17 Urgent Joi Eli [facility] 1.2.840.114 [id number] Univers 14:20:00 14:55:31 Care Unknown, Attending HEALTH 350.1.13.10 ity of [place] 4.2.7.2.686 Demario as FARRUKH?BLEA [phone] [address] MEDICAL OFFICE BUILDING 2022-05-31 2022-05-31 Emergency X NIELS, K [facility] ERT [id number] Univers 09:01:00 10:04:00 ity of [facility] 2022-05-31 2022-05-31 Emergency Brandon Bowser [facility] 1.2.840.114 [id number] Univers 09:01:00 10:04:00 Opal [place] 350.1.13.10 i ty of [place] 4.2.7.2.686 [place] [facility] [id number] [facility] 084 Branch 2022-05-03 2022-05-03 Letter JOE Marcelo 1.2.840.114 [id number] Univers 00:00:00 00:00:00 (Out) Jessika VILLEGAS 350.1.13.10 it y of [facility] 4.2.7.2.686 Demario as [phone] [facility] 019 Branch 2022-05-03 2022-05-03 Telephone Juni [facility] 1.2.840.114 [id number] Univers 00:00:00 00:00:00 [facility] 350.1.13.10 it y of [place] 4.2.7.2.686 Demario as FARRUKH?BLEA [phone] [address] MEDICAL OFFICE BUILDING 2022-05-02 2022-05-02 Outpatient R ETHAN [facility] [id number] Univers 13:20:00 15:03:16 JESSI lui [facility] 2022-05-02 2022-05-02 Urgent Jessi Bernal [facility] 1.2.840 .114 [id number] Univers 13:20:00 13:40:00 Care Unknown, Attending HEALTH 350.1.13.10 ity of [place] 4.2.7.2.686 Demario as FARRUKH?BLEA [phone] [address] OFFICE [facility] 2022-04-25 2022-04-25 Orders Doctor JOE 1.2.840.114 [id number] Univers 00:00:00 00:00:00 Only Unassigned, BAKARI 350.1.13.10 ity of [place] [facility] 4.2.7.2.686 Demario as [phone] [address] 2022-04-03 2022-04-03 Urgent Jessi Bernal [facility] 1.2.840 .114 [id number] Univers 15:00:00 15:20:00 Care Unknown, Attending HEALTH 350.1.13.10 ity of [place] 4.2.7.2.686 Demario as FARRUKH?BLEA [id number] [address] OFFICE [facility] 2022-04-03 2022-04-03 Outpatient R ETHAN [facility] [id number] Univers 15:00:00 15:10:31 JESSI olvera f [facility] 2022-03-02 2022-03-02 (TEL) [facility] [id number] mmon 00:00:00 00:00:00 [facility] 2022-02-19 2022-02-19 PREV VISIT [facility] [id number] Common 00:00:00 00:00:00 EST AGE [facility] 40-64 - [facility] 2021-10-24 2021-10-24 [facility] 1.2.840.114 [id number] Univers 00:00:00 00:00:00 Joi HEALTH 350.1.13.10 it y of [place] 4.2.7.2.686 Demario as FARRUKH?BLEA [id number] [address] OFFICE [facility] 2021-05-01 2021-05-01 Outpatient R SREEDHAR [facility] [id number] Univers 18:40:00 18:00:10 JOI ity [facility] 2021-05-01 2021-05-01 Urgent Sreedhar CTALEXANDR 1.2.840.114 [id number] Univers 17:35:39 18:00:10 Care Joi HEALTH 350.1.13.10 it y of [place] 4.2.7.2.686 Demario as FARRUKH?BLEA [phone] [address] MEDICAL OFFICE BUILDING 2020-10-05 2020-10-05 Telephone Alyce Crowder CTALEXANDR 1.2.840.114 [id number] Univers 00:00:00 00:00:00 Health 350.1.13.10 [place].2.[place] [id number] [address] Office Building 2020-10-03 2020-10-03 Outpatient [facility] [id number] Univers 14:50:00 14:50:[facility] 2020-09-27 2020-09-27 Outpatient R ALYCE CROWDER [facility] [id number] Univers 10:30:00 10:30:00 ity [facility] 2020-09-27 2020-09-27 Telemedici Alyce Crowder [facility] 1.2.840.114 [id number] Univers 10:10:31 10:25:31 ne Visit Health 350.1.13.10 [place].2.[place] [id number] [address] Office Building 2020-09-12 2020-09-12 Outpatient JT CTALEXANDR [facility] [id number] Univers 14:50:00 14:50:00 BRODERICK ity [facility] 2020-09-08 2020-09-08 Patient Jt [facility] 1.2.840.114 [id number] Univers 00:00:00 00:00:00 Outreach Broderick [facility] 350.1.13.10 i ty of [place]2.7.2.[place] [facility] [id number] [address] 2020-06-28 2020-06-28 Office Alyce Crowder [facility] 1.2.840.114 [id number] Univers 10:39:43 12:07:26 Visit Health 350.1.13.10 [place].2.[place] [id number] [address] Office Building 2020-06-28 2020-06-28 Outpatient R ALYCE CROWDER [facility] [id number] Univers 09:45:00 09:45:00 ity of [facility] 2020-06-06 2020-06-06 Outpatient R PARAG [facility] [id number] Univers 13:15:00 13:15:00 JENNIFER ity of [facility] 2020-06-06 2020-06-06 Telephone [facility] 1.2.658.858 [id number] Univers 00:00:00 00:00:00 Marta Darling 350.1.13.10 ity of [place].2.[place] [facility] [phone] Ne dical critical access hospital 204 [facility] 2020-06-02 2020-06-02 Hospital Alyce Crowder [facility] 1.2.840.114 [id number] Univers 13:00:00 23:59:00 Encounter Juan 350.1.13.10 ity of [place].2.7.2.686 [place] [id number] [facility] [address] 2020-06-02 2020-06-02 Outpatient R ALYCE CROWDER [facility] [id number] Univers 00:00:00 00:00:00 ity of [facility] 2020-06-02 2020-06-02 Orders Doctor DIAZ 1.2.840.114 [id number] Univers 00:00:00 00:00:00 Only Unassigned, BAKARI 350.1.13.10 ity of [place] [facility] 4.2.7.2.686 Demario as [phone] [facility] [address] 2020-05-24 2020-05-24 Office Alyce Crowder [facility] 1.2.840.114 [id number] Univers 14:06:23 15:32:37 Visit Health 350.1.13.10 it y [place].2.[place] [id number] [address] Office Building 2020-05-24 2020-05-24 Outpatient R ALYCE CROWDER [facility] [id number] Univers 13:30:00 13:30:00 ity of [facility] 2020-05-23 2020-05-23 Telephone Gramm, [facility] 1.2.972.092 [id number] Univers 00:00:00 00:00:00 Marta Chelo Darling 350.1.13.10 ity of [place]2.7.2.[place] [facility] [phone] Ne dical [address] 2020-05-18 2020-05-18 Outpatient R [facility] [id number] Univers 11:15:00 11:15:00 ity of [facility] 2020-05-18 2020-05-18 Laboratory Only, [facility] Test [facility] 1.2.840. 114 [id number] Univers 10:46:05 11:01:05 Only Jennifer Tuttle 350.1.13.10 ity of [place] 4.2.7.2.686 [facility] [id number] [address] 2020-05-18 2020-05-18 Laboratory Only, [facility] 1.2.840.114 [id number] 10:46:05 11:01:05 Only Mariano Darling 350.1.13.10 [place] 4.2.7.2.686 [place] [id number] [facility] 2020-05-18 2020-05-18 Orders Doctor DIAZ 1.2.840.114 [id number] Univers 00:00:00 00:00:00 Only UnassignedBAKARI 350.1.13.10 ity of [place] [facility] 4.2.7.2.686 Demario as [phone] [facility] [address] 2020-05-18 2020-05-18 Orders Doctor DIAZ 1.2.840.114 [id number] 00:00:00 00:00:00 Only UnassignedBAKARI 350.1.13.10 [place] [facility] 4.2.7.2.686 [id number] 009 2020-05-12 2020-05-12 Office Parag [facility] 1.2.687.988 [id number] Univers 09:55:12 10:51:13 Visit Jennifer Dar[place] 350.1.13.10 i ty of [place].2.[place].2.[place] [phone] [facility] 188 [facility] 2020-05-12 2020-05-12 Office Parag [facility] 1.2.298.559 [id number] 09:55:12 10:51:13 Visit Jennifer [place] 350.1.13.10 [place] 4.2.7.2.686 Professio [id number] [address] 2020-05-12 2020-05-12 Outpatient R PARAG [facility] [id number] Univers 10:00:00 10:00:00 JENNIFER ity of [facility] 2020-05-12 2020-05-12 Telephone Alyce Crowder [facility] 1.2.840.114 [id number] Univers 00:00:00 00:00:00 Health 350.1.13.10 it y [place] [id number] [address] 2020-05-12 2020-05-12 Orders Doctor JOE 1.2.840.114 [id number] Univers 00:00:00 00:00:00 Only Unassigned, BAKARI 350.1.13.10 ity of [place] [facility] 4.2.7.2.686 Demario as [id number] [address] 2020-05-12 2020-05-12 Prep For Kristen [facility] 1.2.840.114 [id number] Univers 00:00:00 00:00:00 Surgery Marta Whitney Juan 350.1.13.10 ity of [place].2.7.2.[place] [phone] [facility] 204 [facility] 2020-05-12 2020-05-12 Telephone Alyce Crowder [facility] 1.2.840.114 [id number] 00:00:00 00:00:00 Health 350.1.13.10 [place] 4.2.7.2.686 [place] [id number] [address] 2020-04-12 2020-04-12 Orders Doctor JOE 1.2.840.114 [id number] Univers 00:00:00 00:00:00 Only Unassigned, BAKARI 350.1.13.10 ity of [place] [facility] 4.2.7.2.686 Demario as [phone] [facility] 009 Branch Results Test Test Test Results Result Source Description Time Comments Comments CT ABDOMEN 2020-05 CT Abdomen and Pelvis out University PELVIS WO -[address] 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 [facility], Radiant Results Inft User - 06/02/2020 1:39 [...] SPECIMENS -21 08:35:0 0 --RUN DATE: 11/12/19 [facility] - LAB PAGE 1 RUN TIME: 834 Specimen Inquiry RUN USER: INTERFACE --PATIENT: PAT MAI LOC: Daniel5N POD B U #: [id number] AGE/SX: 44/F ROOM: [facility] RE11/09/19REG DR: Immanuel Villatoro MD : 75 BED: 1 DIS: 11/10/19 STATUS: DIS IN TLOC: -- SPEC #: [id number] RECD: 11/09/19 STATUS: APOORVA REQ #: [id number] ILIANA: 11/09/19-[address]: Immanuel Villatoro MD [...] in its entirety in a single cassette. / MICROSCOPIC DESCRIPTION Microscopic performed. CONTINUED ON NEXT PAGE --RUN DATE: 11/12/19 [facility] - LAB PAGE 2 RUN TIME: 834 Specimen Inquiry RUN USER: INTERFACE --SPEC #: [id number] PATIENT: PAT MAI #[id number] (Continued) -- Signed SIGNATURE ON FILE Kathy Morales MD 11/12/19 0835 -- END OF REPORT MAGNESIUM 2019-11-10 07:06:00 Test Item Value Reference Range Interpretation Comme nts MAGNESIUM (test code = MAG) 1.6 mg/dL 1.4-2.6 N [id number] 07:06:00 Test Item Value Reference Range Interpretation Comments PHOSPHOROUS (test code = PHOS) 2.6 mg/dL 2.7-4.5 L BASIC METABOLIC [id number] 07:06:00 Test Item Value Reference Range Interpretation [...] mg/dL 8.8-10.2 N = CA) CBC W/AUTO [id number] 06:34:00 Test Item Value Reference Range Interpretation [...] 0.03 x10 3/uL 0.0-0.20 N COMPREHENSIVE METABOLIC [id number] 14:08:00 Test Item Value Reference Range Interpretation [...] N PHOSPHATASE (test code = ALKP) PROTHROMBIN [id number] 13:33:00 Test Item Value Reference Range Interpretation [...] 2.5-3.5recurren t systemic emboli sm. THROMBOPLASTIN TIME [id number] 13:33:00 Test Item Value Reference Range Interpretation Comments THROMBOPLASTIN TIME 39.4 SECONDS 26.0-35.9 H INTERPRE TATIVE PARTIAL (test code = DATA: erapeutic PTT) range: Unfractionated heparin:47 - 71 seconds Argatroban:1.5 to 3 times the basel ine PTT CBC W/AUTO [id number] 13:28:00 Test Item Value Reference Range Interpretation [...] BA#) 0.07 x10 3/uL 0.0-0.20 N SURGICAL [id number] 06:57:00 RUN DATE: 11/03/19 [facility] - LAB PAGE 1 RUN TIME: 656 Specimen Inquiry RUN USER: INTERFACE ------- -----PATIENT: PAT MAI LOC: CADE U #: [id number] AGE/SX: 44/F ROOM: RE10/30/19REG DR: Immanuel Villatoro MD : 75 BED: DIS: STATUS: DEP [facility] TLOC: SPEC #: [id number] RECD: 10/30/19 STATUS: APOORVA MARIE #: [id number] ILIANA: 10/30/191414 SUBM DR: Immanuel Villatoro MD ENTERED: 10/30/19 SP TYPE: SURG OTHR DR: Lanre Lee Jr, MD ORDERED: PATHGM4, PATH SPEC, H E STAIN HISTOLOGY: T ISSUE ID BLK PCS PETE LEV / PROCEDURE DISPOSITION ____ ___ ___ ___ ___ ANTRUM BIOPSY A 1 3 1 TISSUES: A. ANTRUM BIOPSY - Gastric Antrum Bx CLINICAL HISTORY GERD FINAL DIAGNOSIS A- GASTRIC ANTRUM, BIOPSY: - Antral type gastric mucosa with minimal chronic inflammation and reactive epithelial changes, including features suggestive of a component of reactive gastropathy/chemical gastritis. - Negative for H. pylori organisms on routine histology. GROSS DESCRIPTION A-GASTRIC ANTRUM: Two pieces of tissue which measure 2 mm each. Entirely submitted in a single cassette. /th MICROSCOPIC DESCRIPTION Microscopic performed. Signed SIGNATURE ON Kathy Banda MD11/03/19 0657 END OF REPORT Coronavirus 2019 nCoV [id number] 13:25:00 Test Item Value Reference Range Interpretation Comments Coronavirus 2019 nCoV Bedside (test Negative NEGATIVE code = [id number]) Notes Date/Time Note Provider Source 2019-11-10 16:48:00-00:00 [id number] [facility] [address] [place] [address] PATIENT NAME: PAT MAI ADMIT DATE: 11/08 ACCOUNT NO: [id number] ROOM NO: P.0578 AGE: 44 REPORT TYPE: DISCHARGE SUMMARY SEX: F ADMITTING PHYSICIAN:Immanuel Villatoro MD ATTENDING PHYSICIAN:Immanuel Villatoro MD ADMISSION DATE: 11/09/2019 DISCHARGE DATE: 11/10/2019 ADMISSION DIAGNOSIS: Morbid obesity. DISCHARGE DIAGNOSIS: Morbid obesity. HISTORY AND HOSPITAL COURSE: The patient is a 44-year-old woman who underwent a David-en-Y gastric bypass. The patient had an une ventful postoperative course and was discharged home on t he following day on a bariatric liquid diet that she will maintain for 2 weeks. S he will follow up with us in the office in 2 weeks. She will take Tylenol with Codeine elixir for p ain, Zofran for nausea, and Lovenox for DVT prophylaxis. Dictated By: Immanuel Villatoro MD WT: DS:TONIO/ELVIA/SOPHIA Conf#: [id number]/DID#: [id number] Authenticated by Immanuel Villatoro MD On 12:42:20 PM at 1242 PATIENT NAME: PAT MAI [id number] 9711-05-19 07:31:00-00:00 [id number] [facility] [address] [place] [address] PATIENT NAME: PAT MAI ADMIT DATE: 11/08 ACCOUNT NO: [id number] ROOM NO: P.0578 AGE: 44 REPORT TYPE: OPERATIVE REPORT SEX: F ADMITTING PHYSICIAN:Immanuel Villatoro MD ATTENDING PHYSICIAN:Immanuel Villatoro MD OPERATION DATE: 11/09/2019 PREOPERATIVE DIAGNOSIS: Pain status post laparos copic gastric bypass. POSTOPERATIVE DIAGNOSIS: Pain status post laparo scopic gastric bypass. PROCEDURE PERFORMED: Placeme nt of infusion catheter into the abdominal wall x2. SURGEON: Immanuel Villatoro M.D. ANESTHESIA: General endotracheal. ESTIMATED BLOOD LOSS: None. INDICATION FOR PROCEDURE: The patient is a 44-ye ar-old woman who underwent a laparoscopic small pouch David-en-Y gastric bypas s that required multiple port placements in the upper abdo men that causes significant amount of postoperative pain. The patient is also morbidly obese causing an increased risk for deep vein thrombosis and pneumonia related to postope rative pain. PROCEDURE IN DETAIL: After t he gastric bypass procedure was completed, I passed two dilators and sheaths through a subxi phoid skin incision into the abdominal wall below each costal margin. I removed the dil ators, leaving the sheaths in place. I passed the catheter s into the sheaths and removed the sheaths, leaving the catheters in place in the abdominal wall. Dictated By: Immanuel Villatoro MD WT: OP:P.ROD/ELVIA/NTS Conf#: [id number]/DID#: [id number] Authenticated by Immanuel Villatoro MD On 12:42:13 PM at 1242 PATIENT NAME: PAT MAI [id number] 07:29:00-00:00 [id number] [place] [address] PATIENT NAME: PAT MAI ADMIT DATE: 11/08 ACCOUNT NO: [id number] ROOM NO: P.0578 AGE: 44 REPORT TYPE: OPERATIVE REPORT SEX: F ADMITTING PHYSICIAN:Immanuel Villatoro MD ATTENDING PHYSICIAN:Immanuel Villatoro MD OPERATION DATE: 11/09/2019 DATE OF OPERATION: 11/09/2019 PREOPERATIVE DIAGNOSES: 1. Gastroesophageal reflux disease. 2. Morbid obesity. POSTOPERATIVE DIAGNOSES: 1. Gastroesophageal reflux disease. 2. Morbid obesity. 3. Hepatomegaly. PROCEDURES PERFORMED: 1. Laparoscopic small pouch David-en-Y gastric by pass. 2. Laparoscopic wedge liver biopsy. 3. Upper endoscopy. SURGEON: Immanuel Villatoro MD FIXED INCOME PORTFOLIO MANAGER: Myra Goodwin, licensed surgical oncologist. ESTIMATED BLOOD LOSS: Minimal. ANESTHESIA: General endotracheal with local. INDICATION FOR PROCEDURE: The patient is a 44-year-old woman with a history of gastroesophageal reflux dise ase, all related to her morbid obesity. The patient had a body mass index of 42. She was also found to have hepatomegaly on inspection of the abdomen during the operation. PROCEDURE IN DETAIL: The patient was given IV an tibiotics and subcutaneous heparin in preoperative hold ing and she was brought into the operating room and placed on the operating table in the supine posi tion. Sequential compression devices were applied to both legs and activated. The patient was placed under general endotracheal anesthesia. The patient's a bdomen was sterilely prepped and draped. We injected the skin and subcutaneou s tissues just below the left costal margin at the midclavicular line with Mar nila and we made a 12-mm incision with a scalpel. We passed a 12-mm optical trocar through the abdominal wall using a laparoscope to visualize each layer of the abdominal wall as the probe was inserted. We insufflated the abdomen t o 15 mmHg pressure with CO2. We then placed 2 more 12-mm ports in the upper abdomen and two 5-mm ports in the upper abdomen, all under direct laparoscopic vis ion. We divided the greater PATIENT NAME: PAT MAI ACCOUNT #: [id number] omentum with Harmonic scalpe l just to the left of the midpoint of the transverse colon to accommodate an antecolic David l imb. We removed a small piece of liver edge over the left lateral s egment and this was sent to pathology for analysis. We located the ligament of Treitz and followed t he small intestine 50 cm distally. We divided the bowel at that p oint with a laparoscopic stapler using a cade load. We divided the mesentery down to the root with Harmonic scalpel. We followed the small intestine 150 cm further d istally and we created an anastomosis between this point of the bowel and the biliary limb using a laparoscopic stapler with a 60-mm cade load after making enterotomies in each of the limbs. We closed the ope ele of the anastomosis with a laparoscopic stapler using a cade load and SeamGuard staple line reinf orcement. We closed the mesenteric defect of the anastomosis with a 2-0 Surgidac suture using the Endostitch device. We placed a retractor beneath the left lobe of the liver to expose the stomach. We dissected the angle of Hi s with Harmonic scalpel. We opened the lesser omentum adjacent to the lesser curvature of the stomach approximately 5 cm distal to the gastroesophagea l junction. We placed a laparoscopic stapler with a purple load on the stomach using this window and we directed the stapler transversely. After firing the first staple load, we inserted a 34-[place]izen [place] orogast leyla tube into the proximal stomach to act as a guide in completion of the gastric pouch. ?We then fired a second staple load using a purple load on the laparoscopic stapler from the apex of the first staple line directing the stapler towards the angle of His a nd bringing the stapler up against the 34-[place]izen [place] tube to create a narrow ga stric pouch. After firing the second staple load, we changed to purple loads w ith SeamGuard staple line reinforcement and we completely divided the stomach up to the angle of His. We brought the 150 cm David limb up to the 20 mL gas tric pouch in an antecolic, antegastric fashion and we sutured the a ntimesenteric side of the David limb to the gastric pouch, incorporating the gastric senia ch staple line into the posterior suture line with a running 2-0 Vicryl suture. We opened the gastric pouch and the David limb approximately 1-1/2 to 2 cm with electrocautery. We placed an inner layer of run ele 2-0 Vicryl suture followed by an anterior outer layer of running 2-0 Vicryl suture to complete a two-layered hand sewn gastrojejunostomy. We placed a laparoscopic fabrizio l clamp across the David 1imb and we performed an upper en doscopy to rule out leakage and hemorrhage from the gastric pouch. There was no leakage or h emorrhage from the gastric pouch seen. We removed the bowel clamp and we irrigated and suctioned the left upper quadrant of the abdomen and checked for bleeding . It was found to be hemostatic. We placed a laye r of fibrin glue over the gastric pouch staple line and over the gastrojejunostomy along with Coffman on defect and on the jejunojejunostomy. We placed 2 On-Q pain pump catheters into the abdominal wall to decrease the patient's pa in postoperatively. Please see a separate dictation for that procedure. We deflated the abdomen and removed the ports. We closed the skin incisions with 4-0 Monocryl suture in a subcuticular fashion. We applied Dermabond to the wounds. The patient was awakened from general anesthesia, extubated and taken to the PACU in s table condition ADDENDUM: Prior to completion of the gastric byp ass, we removed a small piece of the liver edge from the l eft lateral segment of the liver using the LigaSure device. The liver specimen was sent to pathology . Dictated By: Immanuel Villatoro MD WT: OP:TONIO/ELVIA/SOPHIA PATIENT NAME: MALGORZATA MAIKATIE PACHECO [id number] Conf#: [id number]/DID#: [id number] Authenticated by Immanuel Villatoro MD On 12:42:19 PM at 1242 PATIENT NAME: PAT MAI TARA [id number] 13:55:00-00:00 [id number] [facility] [address] [place] [address] PATIENT NAME: PAT MAI ADMIT DATE: 10/29 ACCOUNT NO: [id number] ROOM NO: AGE: 44 REPORT TYPE: ENDOSCOPY REPORT SEX: F ADMITTING PHYSICIAN: ATTENDING PHYSICIAN:Immanuel Villatoro MD [facility] Patient Name: Mirella Lua Attending MD: Immanuel cortés MD Procedure Date: 10/30/2019 1:55 PM Date of : 03/25 Admit Type: Preadmit Age: 44 Room: Room 2 Gender: Female Note Status: Finalized Procedure: Upper GI endoscopy Pre Procedure Diagnosis: Heartburn Assistants: Immanuel Villatoro MD, Ruperto erazo RN (Nurse), Charo Merchant CRNA, Mago Bailey Referring MD: Immanuel Villatoro MD Anesthesia: General Anesthesia Procedure: Pre-Anesthesia Assessment: - Prior to the procedure, a History and Physica l was performed, and patient medications and allergies were reviewed. The patient is compete nt. The risks and benefits of the procedure and the sedation options and risks were discussed with the patient. All questions were answered and inform ed consent was obtained. Patient identification a nd proposed procedure were verified by the physici an, the nurse and the anesthesiologist in the [facility]. Mental Status Examination: alert and oriented. Airway Examination: normal oropharyng eal airway and neck mobility. Respiratory Examinat ion: clear to auscultation. CV Examination: normal. Prophylactic Antibiotics: The patient does not require prophylactic antibiotics. Prior Anticoagulants: The patient has taken no previo us anticoagulant or antiplatelet agents. ASA Grade Assessment: III - A patient with severe systemi c disease. After reviewing the risks and benefits , the patient was deemed in satisfactory conditio n to undergo the procedure. The anesthesia plan was to use general anesthesia. Immediately prior to administration of medications, the patient was re-assessed for adequacy to receive sedatives. The heart rate, respiratory rate, oxygen saturation s, PATIENT NAME: PAT MAI [id number] blood pressure, adequacy of pulmonary ventilat ion, and response to care were monitored throughout the procedure. The physical status of the patient w as re-assessed after the procedure. The benefits, risks, and alternatives to the procedure were discussed and informed consent w as obtained from the patient. I've assesed the pat ient on this date and reviewed the medical history, drug history, and previous anesthesia experience. Af ter obtaining informed consent, the scope was passe d under direct vision. Throughout the procedure, the patient's blood pressure, pulse, and oxygen saturations were monitored continuously.s were monitored continuously. The was introduced thro ugh the mouth, and advanced to the second part of duodenum. The upper GI endoscopy was accomplis hed without difficulty. The patient tolerated the procedure well. Post Procedure Findings: The examined esophagus was normal. Localized minimal inflammation characterized by erythema was found in the gastric antrum. Biopsies were taken with a cold forceps for histology. Verification of patient identificati on for the specimen was done by the nurse using the patient's name and date. Estimated blood loss was minimal. The examined duodenum was normal. Complications: No immediate complications. Estimated Blood Loss: Post Procedure Diagnosis: - Normal esophagus. - Gastritis. Biopsied. - Normal examined duodenum. Recommendation: - Discharge patient to home. - Await pathology results. Immanuel Villatoro MD Immanuel Villatoro MD 10/30/2019 2:24:28 PM This report has been signed electronically. Number of Addenda: 0 Note Initiated On: 10/30/2019 1:55 PM Procedure Date: 10/30/2019 1:55:53 PM Provation {[id number] ProVation FT PDF at 1424 PATIENT NAME: PAT MAI [id number]
[2022-11-23 21:47] LABS: Absolute Lymphocytes (CBC) 2.1 K/uL (0.7-4.9); Hematocrit 38.7 % (36.0-45.0); Lymphocytes % 17.6 % (15.3-44.8); MCV 102.6 fL (80-100); MPV 8.4 fL (7.6-11.3); RBC Red Blood Cell Count 3.77 M/uL (3.86-4.86)
[2022-11-23] MEDS ORDERED: NA CHLORIDE 0.9% 1,000 ML ONE (21:52)
[2022-11-23] MEDS ORDERED: IPRATROPIUM BROM 0.5MG/2.5ML ONE (21:54)
[2022-11-23] MEDS ORDERED: KETOROLAC 30 MG/ML INJ ONE (21:54)
[2022-11-23] MEDS ORDERED: FAMOTIDINE 20 MG/2 ML VIAL IV ONE (21:54)
[2022-11-23] MEDS ORDERED: ALBUTEROL 2.5 MG/3 ML NEB SOL ONE (21:54)
[2022-11-23] MEDS ORDERED: ONDANSETRON 4 MG/2 ML VIAL ONE (21:54)
[2022-11-23 22:06] LABS: Albumin 3.2 g/dL (3.4-5.0); Bilirubin Total 0.5 mg/dL (0.2-1.0); Potassium 3.6 mEq/L (3.5-5.1); Protein, Total 7.5 g/dL (6.4-8.2)
--- NOTE | 2022-11-23 22:23 | RAD REPORT ---
EXAM DESCRIPTION: [place] Single View11/23/2022 9:50 pm CLINICAL HISTORY: DYSPNEA COMPARISON: CHEST PA AND LAT 2 VIEW dated 06/23/2014; CHEST SINGLE VIEW dated 10/13/2013; CHEST SINGL E VIEW dated 10/13/2013; CHEST SINGLE VIEW dated 10/13/2013 TECHNIQUE: Portable AP view of the chest. FINDINGS: The lungs are clear. No pneumothorax or effusion. The cardiomediastinal contours are unre markable. IMPRESSION: No acute cardiopulmonary process.
--- NOTE | 2022-11-23 22:41 | RAD REPORT ---
EXAM DESCRIPTION: CT - Abdomen Pelvis W Contrast - 11/23/2022 10:25 pm CLINICAL HISTORY: ABD PAIN COMPARISON: No comparisons TECHNIQUE: Thin cut axial CT imaging of the abdomen and pelvis was performed following intravenous a dministration of 68 mL Isovue 300. Multiplanar reformats were generated and reviewed. All CT scans are performed using dose optimization technique as appropriate and may include automated exposure control or mA/KV adjustment according to patient size. FINDINGS: No suspicious findings in the lung bases. The liver, spleen, adrenal glands, and pancreas show no suspicious findings. Gallbladder and biliary tree are also without suspicious finding. Symmetric renal function is seen with no hydronephrosis or suspicious renal mass. Punctate radiodensi ties along the right renal pelvis, not exceeding 2 millimeter, may relate to parenchymal calcificatio ns or small calculi. Ill-defined 1.2 centimeter cortical hypodensity anteriorly at the mid to lower p ole on the right not well characterized, may represent a small cyst. Sequelae of gastric bypass. No dilated bowel loops or bowel wall thickening. No free air, free fluid or inflammatory stranding. No suspicious mass mass or bulky lymphadenopathy. Moderate-sized left lateral abdominal wall hernia containing nondistended small bowel. The urinary bl adder is suboptimally distended, limiting evaluation. No suspicious bony findings. Right total hip arthroplasty hardware results in streak artifact which l imits evaluation. Fatty replacement of the right tensor fascia silvia muscle. IMPRESSION: No acute intra-abdominal process. Moderate-sized left lateral abdominal wall hernia containing nondistended small bowel. Punctate right renal nonobstructing calculi versus small parenchymal calcifications. Right mid to lower pole 1.2 centimeter renal hypoattenuating cortical lesion not well characterized, may represent a small cyst. Other incidental findings as above.
[2022-11-23 23:02] LABS: Specific Gravity > 1.030 (1.005-1.030); Urine Bacteria <20 /HPF (<20); Urine Bilirubin NEGATIVE (Negative); Urine Blood Negative (Negative); Urine Clarity Turbid (Clear); Urine Color Yellow (Yellow); Urine Glucose NEGATIVE (Negative); Urine Mucus 1+ /HPF (None Seen); Urine Protein 1+ (Negative); Urine RBC <5 /HPF (None Seen); Urine Urobilinogen 1+ (Normal); Urine WBC Clump Rare /HPF (None Seen)
--- NOTE | 2022-11-23 23:18 | EDPHYS ---
Physician Documentation [facility] Name: Stoney Vu Age: 47 yrs Sex: Female : 1975 Arrival Date: 11/23/2022 Time: 20:55 Bed 4 Private MD: ED Physician Harmeet Otero HPI: 11/23 23:14 This 47 yrs old Female presents to ER via Ambulatory with complaints of Abdominal Pain, kb Shortness Of Breath. 23:14 The patient presents with abdominal pain in the upper abdomen. Onset: The kb symptoms/episode began/occurred 3 day(s) ago. The symptoms do not radiate. Associated signs and symptoms: Pertinent positives: nausea, vomiting, and diarrhea, shortness of breath. The symptoms are described as constant. Modifying factors: The symptoms are alleviated by nothing, the symptoms are aggravated by nothing. Severity of pain: At its worst the pain was moderate in the emergency department the pain is unchanged. The patient has not experienced similar symptoms in the past. The patient has not recently seen a physician. Pt reports upper abd pain, nausea, vomiting and shortness of breath for 3 days. States she has had diarrhea for 6 months. Denies fever. . 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 - Social history:: Smoking status: Patient reports the use of cigarette tobacco products, smokes one-half pack cigarettes per day, hasn't smoked since being short of breath. ROS: 23:14 Constitutional: Negative for fever, chills, and weight loss. kb 23:14 Respiratory: Positive for shortness of breath. 23:14 Abdomen/GI: Positive for abdominal pain, nausea, vomiting, and diarrhea. 23:14 All other systems are negative. Exam: 23:14 Constitutional: This is a well developed, well nourished patient who is awake, alert, kb and in no acute distress. Head/Face: Normocephalic, atraumatic. ENT: Moist Mucous membranes Cardiovascular: Regular rate and rhythm with a normal S1 and S2. No gallops, murmurs, or rubs. No pulse deficits. Respiratory: Respirations even and unlabored. No increased work of breathing. Talking in full sentences Abdomen/GI: Soft, non-tender. No distention Skin: Warm, dry with normal turgor. Normal color. MS/ Extremity: Pulses equal, no cyanosis. Neurovascular intact. Full, normal range of motion. Neuro: Awake and alert, GCS 15, oriented to person, place, time, and situation. Moves all extremities. Normal gait. Vital Signs: 21:26 BP 168 / 91; Pulse 82; Resp 22; Temp 97.3; Pulse Ox 100% ; Weight 101.15 kg; Height 5 vc1 ft. 7 in. ; 22:34 BP 119 / 97; Pulse 86; Resp 17; Pulse Ox 99% ; vc1 21:26 Body Mass Index 34.93 (101.15 kg, 170.18 cm) vc1 MDM: 20:59 Patient medically screened. kb 23:16 Differential diagnosis: diverticulitis, gastritis, non-specific abd pain, pneumonia, kb COPD, bronchitis. Data reviewed: vital signs, nurses notes. Counseling: I had a detailed discussion with the patient and/or guardian regarding: the historical points, exam findings, and any diagnostic results supporting the discharge/admit diagnosis, lab results, radiology results, the need for outpatient follow up, a family practitioner, a software manager, to return to the emergency department if symptoms worsen or persist or if there are any questions or concerns that arise at home. 11/23 21:12 Order name: CBC with Diff; Complete Time: 21:57 kb 11/23 21:12 Order name: CMP; Complete Time: 22:07 kb 11/23 21:12 Order name: Lipase; Complete Time: 22:07 kb 11/23 21:12 Order name: Urinalysis w/ reflexes; Complete Time: 23:10 kb 06 21:12 Order name: CT Abd/Pelvis - IV Contrast Only; Complete Time: 22:48 kb 11/23 21:12 Order name: Chest Single View XRAY; Complete Time: 22:29 kb 11/23 21:12 Order name: IV Saline Lock; Complete Time: 21:55 kb 11/23 21:12 Order name: Labs collected and sent; Complete Time: 21:55 kb Administered Medications: 21:53 Drug: Famotidine IVP 20 mg Route: IVP; Site: right antecubital; vc1 22:30 Follow up: Response: No adverse reaction; Marked relief of symptoms vc1 21:53 Drug: Ipratropium Inhalation Aerosol 0.5 mg Route: Inhalation; vc1 21:53 Drug: Albuterol Inhalation 2.5 mg Route: Inhalation; vc1 21:54 Drug: NS 0.9% IV 1000 ml Route: IV; Rate: 1 bolus; Site: right antecubital; vc1 23:00 Follow up: IV Status: Completed infusion; IV Intake: 1000ml vc1 11/24 06:55 Follow up: IV Status: Completed infusion; IV Intake: 1000ml vc1 11/23 21:54 Drug: TORadol - Ketorolac IVP 15 mg Route: IVP; Site: right antecubital; vc1 22:30 Follow up: Response: No adverse reaction; Marked relief of symptoms; Pain is decreased vc1 21:54 Drug: Ondansetron IVP 4 mg Route: IVP; Site: right antecubital; vc1 22:30 Follow up: Response: No adverse reaction; Marked relief of symptoms vc1 Disposition Summary: 11/23/22 23:17 Discharge Ordered Location: Home kb Condition: Stable kb Diagnosis - Dyspnea, unspecified kb - Upper abdominal pain, unspecified kb - Other specified abdominal hernia without obstruction or gangrene kb Followup: kb - With: Emergency Department - When: As needed - Reason: Worsening of condition Followup: kb - With: Private Physician - When: 2 - 3 days - Reason: Recheck today's complaints, Continuance of care, Re-evaluation by your physician Discharge Instructions: - Discharge Summary Sheet kb - Shortness of Breath, Adult, [id number] kb - Abdominal Pain, Adult, [id number]-[id number] kb - Hernia, Adult, [id number] kb Forms: - Medication Reconciliation Form kb - Thank You Letter kb - Antibiotic Education kb - Prescription Opioid Use kb Prescriptions: - albuterol sulfate 90 mcg/actuation Inhalation HFA Aerosol Inhaler - inhale 2 puff by INHALATION route every 4-6 hours As needed; 1 unit; Refills: kb 0, Product Selection Permitted - Prednisone 20 mg Oral Tablet - take 1 tablet by ORAL route once daily for 5 days; 5 tablet; Refills: 0, kb Product Selection Permitted - Zofran 4 mg Oral Tablet - take 1 tablet by ORAL route every 6 hours As needed; 12 tablet; Refills: 0, kb Product Selection Permitted Signatures: Dispatcher [employer] Vera Gayle, NOHEMY-C GAS LOAD DISPATCHER-Slime [place], RN RN vc1
--- NOTE | 2022-11-23 23:18 | ER ---
Nurse's Notes [facility] Name: Stoney Vu Age: 47 yrs Sex: Female : 1975 Arrival Date: 11/23/2022 Time: 20:55 Bed 4 Private MD: Diagnosis: Dyspnea, unspecified;Upper abdominal pain, unspecified;Other specified abdominal hernia without obstruction or gangrene Presentation: 11/23 21:26 Chief complaint: Patient states: I've been short of breath since yesterday. Coronavirus vc1 screen: Client denies travel out of the [place] in the last 14 days. diarrhea, shortness of breath, vomiting. Client presents with at least one sign or symptom that may indicate coronavirus-19. Standard/surgical mask placed on the client. Provider contacted for isolation considerations. Ebola Screen: Patient negative for fever greater than or equal to 101.5 degrees Fahrenheit, and additional compatible Ebola Virus Disease symptoms Patient denies exposure to infectious person. Patient denies travel to an Ebola-affected area in the 21 days before illness onset. No symptoms or risks identified at this time. Initial Sepsis Screen: Does the patient meet any 2 criteria? No. Patient's initial sepsis screen is negative. Does the patient have a suspected source of infection? No. Patient's initial sepsis screen is negative. Risk Assessment: Do you want to hurt yourself or someone else? Patient reports no desire to harm self or others. Onset of symptoms was November 22, 2022. 21:26 Method Of Arrival: Ambulatory vc1 21:26 Acuity: ESTELLE 3 vc1 Triage Assessment: 21:38 General: Appears in no apparent distress. uncomfortable, Behavior is calm, cooperative, vc1 appropriate for age. Pain: Complains of pain in right upper quadrant and left upper quadrant Pain does not radiate. Quality of pain is described as Also complains of nausea, shortness of breath, diarrhea, unable to keep anything down for about a year. EENT: No deficits noted. No signs and/or symptoms were reported regarding the EENT system. Neuro: Level of Consciousness is awake, alert, obeys commands, Oriented to person, place, time, situation. Cardiovascular: No deficits noted. Respiratory: Reports shortness of breath at rest. GI: Reports upper abdominal pain, diarrhea, intolerance of fluids, intolerance of food, nausea, vomiting, since a year. : No deficits noted. No signs and/or symptoms were reported regarding the genitourinary system. Derm: No deficits noted. No signs and/or symptoms reported regarding the dermatologic system. Musculoskeletal: No deficits noted. No signs and/or symptoms reported regarding the musculoskeletal system. 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 - Social history:: Smoking status: Patient reports the use of cigarette tobacco products, smokes one-half pack cigarettes per day, hasn't smoked since being short of breath. Screenin:29 [facility] ED Fall Risk Assessment (Adult) History of falling in the last 3 months, vc1 including since admission No falls in past 3 months (0 pts) Confusion or Disorientation No (0 pts) Intoxicated or Sedated No (0 pts) Impaired Gait No (0 pts) Mobility Assist Device Used No (0 pt) Altered Elimination Yes (1 pt) Score/Fall Risk Level 0 - 2 = Low Risk Oriented to surroundings, Maintained a safe environment, Educated pt \T\ family on fall prevention, incl call for assistance when getting out of bed. Abuse screen: Denies threats or abuse. Nutritional screening: No deficits noted. Tuberculosis screening: No symptoms or risk factors identified. Assessment: 22:42 Reassessment: Patient and/or family updated on plan of care and expected duration. Pain vc1 level reassessed. Patient is alert, oriented x 3, equal unlabored respirations, skin warm/dry/pink. Patient states feeling better. Patient states symptoms have improved. Vital Signs: 21:26 BP 168 / 91; Pulse 82; Resp 22; Temp 97.3; Pulse Ox 100% ; Weight 101.15 kg; Height 5 vc1 ft. 7 in. ; 22:34 BP 119 / 97; Pulse 86; Resp 17; Pulse Ox 99% ; vc1 21:26 Body Mass Index 34.93 (101.15 kg, 170.18 cm) vc1 ED Course: 20:58 Patient arrived in ED. ag3 20:59 [facility] kb 20:59 Harmeet Otero MD is Attending Physician. kb 21:22 Slime Carl RN is Primary Nurse. vc1 21:28 Triage completed. vc1 21:35 Inserted saline lock: 20 gauge in right antecubital area, using aseptic technique. oe Blood collected. 21:38 Arm band placed on right wrist. vc1 21:41 Patient has correct armband on for positive identification. Bed in low position. Call vc1 light in reach. Client placed on continuous cardiac and pulse oximetry monitoring. NIBP monitoring applied. 21:52 Chest Single View XRAY In Process Unspecified. EDMS 22:26 CT Abd/Pelvis - IV Contrast Only In Process Unspecified. EDMS 23:27 No provider procedures requiring assistance completed. IV discontinued, intact, vc1 bleeding controlled, No redness/swelling at site. Pressure dressing applied. Administered Medications: 21:53 Drug: Famotidine IVP 20 mg Route: IVP; Site: right antecubital; vc1 22:30 Follow up: Response: No adverse reaction; Marked relief of symptoms vc1 21:53 Drug: Ipratropium Inhalation Aerosol 0.5 mg Route: Inhalation; vc1 21:53 Drug: Albuterol Inhalation 2.5 mg Route: Inhalation; vc1 21:54 Drug: NS 0.9% IV 1000 ml Route: IV; Rate: 1 bolus; Site: right antecubital; vc1 23:00 Follow up: IV Status: Completed infusion; IV Intake: 1000ml vc1 11/24 06:55 Follow up: IV Status: Completed infusion; IV Intake: 1000ml vc1 11/23 21:54 Drug: TORadol - Ketorolac IVP 15 mg Route: IVP; Site: right antecubital; vc1 22:30 Follow up: Response: No adverse reaction; Marked relief of symptoms; Pain is decreased vc1 21:54 Drug: Ondansetron IVP 4 mg Route: IVP; Site: right antecubital; vc1 22:30 Follow up: Response: No adverse reaction; Marked relief of symptoms vc1 Medication: 21:29 VIS not applicable for this client. vc1 Intake: 23:00 IV: 1000ml; Total: 1000ml. vc1 11/24 06:55 IV: 1000ml; Total: 2000ml. vc1 Outcome: 11/23 23:17 Discharge ordered by MD. paul 23:27 Discharged to home ambulatory. vc1 23:27 Condition: good 23:27 Discharge instructions given to patient, Instructed on discharge instructions, follow up and referral plans. medication usage, Demonstrated understanding of instructions, follow-up care, medications, Prescriptions given X 3. 23:28 Patient left the ED. vc1 Signatures: Dispatcher [employer] EDTN Vera Casillas, NOHEMY-C [employer]ER-CkBill Varela Alice ag3 Slime Carl, RN RN vc1
[2022-11-23 23:47] VITALS: TEMP 97.3
[2022-11-23 23:52] VITALS: BP 119/97; O2SAT 99
== END 2022-11-23 23:28 | disposition home or self-care (01) ==
LOC: ER 20:55
DX: K45.8 Other specified abdominal hernia without obstruction or gangrene (principal); R06.00 Dyspnea, unspecified; R19.7 Diarrhea, unspecified; F17.210 Nicotine dependence, cigarettes, uncomplicated; Z88.0 Allergy status to penicillin
CPT/HCPCS: 96361; 85025; 81001; 36415; 83690; 80053; 74177; 71045; 96375; 96374; 99285; Q9967; J7613; J7644; J2405; J7030

== ENCOUNTER 2023-05-05 03:16 | Inpatient (IN) | payer OTHER ==
--- OUTSIDE RECORDS SUMMARY | 2023-05-05 03:25 | XMS REPORT | Continuity of Care Document ---
:1975 Author Organization [facility] t Address [address] [place] [address] [place] [id number] Care Team Providers Name Role Phone Joanne Christie MD Primary Care Physician Joanne Christie Attending Clinician Unavailable JENNIFER TUTTLE Attending Clinician Unavailable Immanuel Villatoro Attending Clinician Unavailable DIANA AGUIRRE Attending Clinician Unavailable KENNY CHING Attending Clinician Unavailable Kenny Ching MD Attending Clinician Diana Aguirre NP Attending Clinician Doctor Unassigned, Verdon Attending Clinician Unavailable SAMANTHA LESLYE MOSCOSO Attending Clinician Unavailable Samantha BREAD BAKER, Leslye Moscoso Attending Clinician Shahnaz GREEN, Joanne Attending Clinician BRODERICK WATERS Attending Clinician Unavailable Mateus Coulter MD Attending Clinician Daniel GREEN, aJy Up Attending Clinician Broderick Waters DO Attending Clinician ASHVIN DIAZ Attending Clinician Unavailable DANIS ZIMMER III Attending Clinician Unavailable Ashvin Chung Attending Clinician Lisette BUSH, Hoang Diaz Attending Clinician FERN BAL Attending Clinician Unavailable FERN BAL Attending Clinician Unavailable Tyrel Obando MD Attending Clinician Damaris Clark LVN Attending Clinician WOLF ENNIS Attending Clinician Unavailable Mike Blanco Attending Clinician Wlof Ennis MD Attending Clinician ALYCE CROWDER Attending Clinician Unavailable JULIUS BENEDICT Attending Clinician Unavailable JULIUS BENEDICT Attending Clinician Unavailable CYNTHIA RG Attending Clinician Unavailable CYNTHIA RG Attending Clinician Unavailable CHRISTINE FLORENCE Attending Clinician Unavailable Christine Florence MD Attending Clinician HOANG KNOX Attending Clinician Unavailable JOI ELI Attending Clinician Unavailable Joi Eli MD Attending Clinician Unknown, Attending Attending Clinician Unavailable Brandon BENITEZ Attending Clinician Unavailable Brandon Ocasio Attending Clinician Jessika Marcelo RN Attending Clinician Unavailable Wilian Rudd Attending Clinician JESSI LONG Attending Clinician Unavailable Jessi Polanco Attending Clinician Alyce Crowder MD Attending Clinician Marta Baez Attending Clinician Only, Adc Test Attending Clinician Unavailable Jennifer Tuttle MD Attending Clinician GEORGINA MILLER III Attending Clinician Unavailable JENNIFER TUTTLE Admitting Clinician Unavailable LESLYE SINGH Admitting Clinician Unavailable JAY AGUILA Admitting Clinician Unavailable Jay Aguila MD Admitting Clinician FERN BAL Admitting Clinician Unavailable WOLF ENNIS Admitting Clinician Unavailable Wolf Ennis MD Admitting Clinician JULIUS BENEDICT Admitting Clinician Unavailable CHRISTINE FLORENCE Admitting Clinician Unavailable HOANG KNOX Admitting Clinician Unavailable Payers Payer Name Policy Type Policy Number Effective Date Expiration Date S yony FORMERLY [facility] [id number] 2021 STARPLUS OON 00:00:00 EXCEPT [facility] [id number] 2018 PLUS 00:00:00 MEDICAID OF [place] [id number] 2020 00:00:00 Problems Condition Condition Condition Status Onset Resolution Last Treating Co mments Source Name Details Category Date Date Treatment Clinician Date Nocturnal Nocturnal Disease Active 2022-06 Uni vers diarrhea diarrhea 1-08 ity of 00:00: [place] 00 [facility] Nausea Nausea Disease Active 2022-06 Univers 1-08 ity of 00:00: [place] [facility] Elevated Elevated Disease Active 2022-06 Unive rs fecal fecal 1-08 ity of calprotect calprotect [place] [facility] Weakness Weakness Disease Active 2022-06 Unive rs 1-08 ity of 00:00: [place] 00 [facility] Dizziness Dizziness Disease Active 2022-06 Uni vers 1-08 ity of 00:00: [place] 00 [facility] Fall in Fall in Disease Active 2022-06 Univers home, home, 1-08 ity of initial initial 00:00: [place] encounter encounter 00 [facility] Elevated Elevated Disease Active 2022-06 Unive rs blood blood 1-08 ity of pressure pressure 00:00: [place] reading reading [facility] Elevated Elevated Disease Active 2022-06 Unive rs LFTs LFTs 1-08 ity of 00:00: [place] 00 Medical Branch Generalize Generalize Disease Active 2022-06 U nivers d d 1-08 it[place] of abdominal abdominal 00:[place] pain pain 00 [place] Ascites of Ascites of Disease Active 2022-06 U nivers liver liver 1-08 ity of 00:00: [place] [facility] Anasarca Anasarca Disease Active 2022-06 Unive rs 0-08 ity of 00:00: Medical Branch Pneumonia Pneumonia Disease Active 2022-06 Uni vers of left of left 0-04 ity of lower lobe [place] lobe 00:00[place] due to due to 00 Medical infectious infectious Br anch organism organism Screening Screening Disease Active 2019-06 Overview: Univers for for 07-12 Formattin ity of colorectal colorectal 00:00: g of this [place] cancer cancer 00 note Medical might be Branch different from the original. Added automatic ally from request for surgery [id number] Wound Wound Disease Active Univers dehiscence dehiscence 5-10 it y of 00:00: Medical Branch S/P S/P Disease Active Univers [...] pain Hip pain Disease Active Unive rs 5-31 ity of 00:00: [place] [facility] History of History of Disease Active U nivers fracture fracture 11-21 ity of of right of right 00:00: [place] hip hip 00 Medical Branch Positive Positive Disease Active Unive rs urine drug urine drug 11-21 it y of screen screen 00:00: Medical Branch [id number] GERD Problem Active Common without Spirit esophagiti - [facility] [id number] LISTETE Problem Active Common (generaliz Spirit ed anxiety - [facility] disorder) [facility] [id number] Bipolar 1 Problem Active Comm on disorder, Spirit depressed, - [facility] mild [facility] Allergies, Adverse Reactions, Alerts Allergy Allergy Status Severity Reaction(s) Onset Inactive Treating Comm ents Source Name Type Date Date Clinician Penicill Drug Active Itching 2019-06 Univers in Allergy 07-12 ity of 00:00: [place] 00 Medical Branch PENICILL DRUG Active High Hives 2019-06 Univers IN INGREDI 07-12 ity of 00:00: [place] 00 Medical Branch Penicill Propensi Active Itching 2019-06 Unive rs in ty to 07-12 ity of adverse 00:00: [place] reaction 00 Medical s Branch Penicill DA Active PR [facility] ins 10-28 [place] [facility] Penicill DA Active PR RASH ITCHING HC A ins 10-28 [place] 00:00: [facility] 00 are Medical Lawson penicill penicill Active rash Common in V in V Spirit - [facility] NO KNOWN Drug Active Univers ALLERGIE Class ity of S [facility] Social History Social Habit Start Date Stop Date Quantity Comments Source Sexual orientation [facility] of tobacco Cigarette Smoker University of use [facility] Sex Assigned At Common Sp meaghan - [facility] Education - What is 2023-03-27 2023-03-27 Associate degree: University of the highest level 00:00:00 00:00:00 occupational, Demariojuliana diaz Medical of school you have technical, or [facility] completed or the vocational highest degree you program have received? Alcohol intake 2023-03-27 2023-03-27 Current University 00:00:00 00:00:00 non-drinker of [facility] alcohol (finding) Branch Exposure to 2022-11-24 2022-12-04 Not sure University of SARS-CoV-2 (event) 00:00:00 21:55:00 [facility] Cigarettes smoked 2022-10-09 2022-10-09 Univers ity of current (pack per 00:00:00 00:00:00 ) - Reported Branch Cigarette 2022-10-09 2022-10-09 University of pack-years 00:00:00 00:00:00 [facility] Tobacco use and 2022-10-09 2022-10-09 Smokeless tobacco Un iversity of exposure 00:00:00 00:00:00 non-user [facility] Tobacco Comment 2022-10-09 2022-10-09 thinking about it Un iversity of 00:00:00 00:00:00 [facility] History of Social 2022-04-03 2022-04-03 Univers ity of function 00:00:00 00:00:00 [facility] Smoking Status Start Date Stop Date Source Smokes tobacco daily 2022-10-09 00:00:00 Univers ity of [facility] Medications Ordered Filled Start Stop Current Ordering Indication Dosage Frequency Signature Comments Components Source Medication Medication Date Date Medication? Clinician (SIG) Name Name VANDANA 2022-06- No [id number] 40meq 40 mEq, Univ ers (KLOR-CON 07-02 Oral, ity of M20) tablet 00:45: 00:07 ONCE, 1 [place] 40 mEq 00 :00 dose, On Medical Wed Branch 05/01/23 at 1845, Routine lamoTRIgine 2022-06 Yes 150mg Take 1 Uni vers (LAMICTAL) 1-08 tablet by ity of 150 mg 14:47: mouth in [place] tablet 15 the Medical morning. Branch Biotin 2022-06 Yes 1{capsu Take 1 Univer s 10,000 mcg 1-08 le} capsule by ity of Cap 14:47: mouth [place] 15 daily. Medical Branch citalopram 2022-06 Yes 40mg Take 1 Unive rs 40 mg 1-08 tablet by ity of tablet 14:47: mouth in [place] 15 the Medical morning. Branch gabapentin 2022-06 Yes 300mg Take 1 Univ ers 300 mg 1-08 capsule by ity of capsule 14:47: mouth in [place] 15 the Medical morning Branch and 1 capsule in the evening. hydrOXYzine 2022-06 Yes 25mg Take 1 Univ ers 25 mg 1-08 tablet by ity of tablet 14:47: mouth at [place] 15 bedtime as Medical needed for Branch Itching or Anxiety. lamoTRIgine 2022-06 Yes 150mg Take 1 Uni vers (LAMICTAL) 1-08 tablet by ity of 150 mg 14:47: mouth in [place] tablet 15 the Medical morning. Branch Biotin 2022-06 Yes 1{capsu Take 1 Univer s 10,000 mcg 1-08 le} capsule by ity of Cap 14:47: mouth [place] 15 daily. Medical Branch citalopram 2022-06 Yes 40mg Take 1 Unive rs 40 mg 1-08 tablet by ity of tablet 14:47: mouth in [place] 15 the Medical morning. Branch gabapentin 2022-06 Yes 300mg Take 1 Univ ers 300 mg 1-08 capsule by ity of capsule 14:47: mouth in [place] 15 the Medical morning Branch and 1 capsule in the evening. hydrOXYzine 2022-06 Yes 25mg Take 1 Univ ers 25 mg 1-08 tablet by ity of tablet 14:47: mouth at [place] 15 bedtime as Medical needed for Branch Itching or Anxiety. lamoTRIgine 2022-06 Yes 150mg Take 1 Uni vers (LAMICTAL) 1-08 tablet by ity of 150 mg 14:47: mouth in [place] tablet 15 the Medical morning. Branch Biotin 2022-06 Yes 1{capsu Take 1 Univer s 10,000 mcg 1-08 le} capsule by ity of Cap 14:47: mouth [place] 15 daily. Medical Branch citalopram 2022-06 Yes 40mg Take 1 Unive rs 40 mg 1-08 tablet by ity of tablet 14:47: mouth in [place] 15 the Medical morning. Branch gabapentin 2022-06 Yes 300mg Take 1 Univ ers 300 mg 1-08 capsule by ity of capsule 14:47: mouth in [place] 15 the Medical morning Branch and 1 capsule in the evening. hydrOXYzine 2022-06 Yes 25mg Take 1 Univ ers 25 mg 1-08 tablet by ity of tablet 14:47: mouth at [place] 15 bedtime as Medical needed for Branch Itching or Anxiety. lamoTRIgine 2022-06 Yes 150mg Take 1 Uni vers (LAMICTAL) 1-08 tablet by ity of 150 mg 14:47: mouth in [place] tablet 15 the Medical morning. Branch Biotin 2022-06 Yes 1{capsu Take 1 Univer s 10,000 mcg 1-08 le} capsule by ity of Cap 14:47: mouth [place] 15 daily. Medical Branch citalopram 2022-06 Yes 40mg Take 1 Unive rs 40 mg 1-08 tablet by ity of tablet 14:47: mouth in [place] 15 the Medical morning. Branch gabapentin 2022-06 Yes 300mg Take 1 Univ ers 300 mg 1-08 capsule by ity of capsule 14:47: mouth in [place] 15 the Medical morning Branch and 1 capsule in the evening. hydrOXYzine 2022-06 Yes 25mg Take 1 Univ ers 25 mg 1-08 tablet by ity of tablet 14:47: mouth at [place] 15 bedtime as Medical needed for Branch Itching or Anxiety. lamoTRIgine 2022-06 Yes 150mg Take 1 Uni vers (LAMICTAL) 1-08 tablet by ity of 150 mg 14:47: mouth in [place] tablet 15 the Medical morning. Branch Biotin 2022-06 Yes 1{capsu Take 1 Univer s 10,000 mcg 1-08 le} capsule by ity of Cap 14:47: mouth [place] 15 daily. Medical Branch citalopram 2022-06 Yes 40mg Take 1 Unive rs 40 mg 1-08 tablet by ity of tablet 14:47: mouth in [place] 15 the Medical morning. Branch gabapentin 2022-06 Yes 300mg Take 1 Univ ers 300 mg 1-08 capsule by ity of capsule 14:47: mouth in [place] 15 the Medical morning Branch and 1 capsule in the evening. hydrOXYzine 2022-06 Yes 25mg Take 1 Univ ers 25 mg 1-08 tablet by ity of tablet 14:47: mouth at [place] 15 bedtime as Medical needed for Branch Itching or Anxiety. losartan 25 2022-06- Yes [id number] 25mg Take 1 Univers mg tablet 1-08 12-09 tablet by ity of 00:00: 05:59 mouth in [place] 00 :00 the Medical morning Branch for 30 days. acetaminoph 2022-06- No 650mg 650 mg, U nivers en 0-23 10-24 Oral, ity of (TYLENOL) 23:30: 01:08 ONCE, 1 [place] tablet 650 00 :00 dose, On Medic al mg Mon Branch 04/15/23 at 1830, SANJAY lamoTRIgine 2022-06 Yes 150mg Take 1 Uni vers (LAMICTAL) 0-13 tablet by ity of 150 mg 16:03: mouth in [place] tablet 13 the Medical morning. Branch Biotin 2022-06 Yes 1{capsu Take 1 Univer s 10,000 mcg 0-13 le} capsule by ity of Cap 16:03: mouth [place] 13 daily. Medical Branch citalopram 2022-06 Yes 40mg Take 1 Unive rs 40 mg 0-13 tablet by ity of tablet 16:03: mouth in [place] 13 the Medical morning. Branch gabapentin 2022-06 Yes 300mg Take 1 Univ ers 300 mg 0-13 capsule by ity of capsule 16:03: mouth in [place] 13 the Medical morning Branch and 1 capsule in the evening. hydrOXYzine 2022-06 Yes 25mg Take 1 Univ ers 25 mg 0-13 tablet by ity of tablet 16:03: mouth at [place] 13 bedtime as Medical needed for Branch Itching or Anxiety. lamoTRIgine 2022-06 Yes 150mg Take 1 Uni vers (LAMICTAL) 0-13 tablet by ity of 150 mg 16:03: mouth in [place] tablet 13 the Medical morning. Branch Biotin 2022-06 Yes 1{capsu Take 1 Univer s 10,000 mcg 0-13 le} capsule by ity of Cap 16:03: mouth [place] 13 daily. Medical Branch citalopram 2022- Yes 40mg Take 1 Unive rs 40 mg 0-13 tablet by ity of tablet 16:03: mouth in [place] 13 the Medical morning. Branch gabapentin 2022- Yes 300mg Take 1 Univ ers 300 mg 0-13 capsule by ity of capsule 16:03: mouth in [place] [address] the Medical morning Branch and 1 capsule in the evening. hydrOXYzine 2022- Yes 25mg Take 1 Univ ers 25 mg 0-13 tablet by ity of tablet 16:03: mouth at [place] [address] bedtime as Medical needed for Branch Itching or Anxiety. lamoTRIgine 2022- Yes 150mg Take 1 Uni vers (LAMICTAL) 0-13 tablet by ity of 150 mg 16:03: mouth in [place] tablet 13 the Medical morning. Branch Biotin 2022-06 Yes 1{capsu Take 1 Univer s 10,000 mcg 0-13 le} capsule by ity of Cap 16:03: mouth [place] 13 daily. Medical Branch citalopram 2022- Yes 40mg Take 1 Unive rs 40 mg 0-13 tablet by ity of tablet 16:03: mouth in [place] 13 the Medical morning. Branch gabapentin 2022- Yes 300mg Take 1 Univ ers 300 mg 0-13 capsule by ity of capsule 16:03: mouth in [place] 13 the Medical morning Branch and 1 capsule in the evening. hydrOXYzine 2022- Yes 25mg Take 1 Univ ers 25 mg 0-13 tablet by ity of tablet 16:03: mouth at [place] 13 bedtime as Medical needed for Branch Itching or Anxiety. lamoTRIgine 2022-06 Yes 150mg Take 1 Uni vers (LAMICTAL) 0-13 tablet by ity of 150 mg 16:03: mouth in [place] tablet 13 the Medical morning. Branch Biotin 2022-06 Yes 1{capsu Take 1 Univer s 10,000 mcg 0-13 le} capsule by ity of Cap 16:03: mouth [place] 13 daily. Medical Branch citalopram 2022-06 Yes 40mg Take 1 Unive rs 40 mg 0-13 tablet by ity of tablet 16:03: mouth in [place] 13 the Medical morning. Branch gabapentin 2022-06 Yes 300mg Take 1 Univ ers 300 mg 0-13 capsule by ity of capsule 16:03: mouth in [place] 13 the Medical morning Branch and 1 capsule in the evening. hydrOXYzine 2022-06 Yes 25mg Take 1 Univ ers 25 mg 0-13 tablet by ity of tablet 16:03: mouth at [place] 13 bedtime as Medical needed for Branch Itching or Anxiety. furosemide 2022-06- No 40mg 40 mg, Univ ers (LASIX) 0-13 10-13 Slow IV ity of injection 12:30: 13:29 Push, [place] 40 mg 00 :00 ONCE, 1 Medical dose, On Branch Sat04/05/23 at 0730, Routine KCL 20 2022-06- No 40meq 40 mEq, Univer s mEq/15 mL 0-13 10-13 Oral, ity of solution 40 12:30: 13:29 ONCE, 1 [place] mEq 00 :00 dose, On Medical Fri Branch 04/05/23 at 0730, Routine furosemide 2022-06 Yes [id number] 20mg Take 1 U nivers 20 mg 0-13 tablet by ity of tablet 00:00: mouth once [place] 00 daily as Medical needed Branch (Leg swelling). dicyclomine 2022-06 Yes [id number] 20mg Take 1 Univers 20 mg 0-13 tablet by ity of tablet 00:00: mouth 3 [place] 00 (three) Medical times Branch daily as needed (Abdominal Pain/Spasm s). furosemide 2022-06 Yes [id number] 20mg Take 1 U nivers 20 mg 0-13 tablet by ity of tablet 00:00: mouth once [place] 00 daily as Medical needed Branch (Leg swelling). dicyclomine 2022-06 Yes [id number] 20mg Take 1 Univers 20 mg 0-13 tablet by ity of tablet 00:00: mouth 3 (three) Medical times Branch daily as needed (Abdominal Pain/Spasm s). furosemide 2022-06 Yes [id number] 20mg Take 1 U nivers 20 mg 0-13 tablet by ity of tablet 00:00: mouth once [place] 00 daily as Medical needed Branch (Leg swelling). dicyclomine 2022-06 Yes [id number] 20mg Take 1 Univers 20 mg 0-13 tablet by ity of tablet 00:00: mouth 3 00 (three) Medical times Branch daily as needed (Abdominal Pain/Spasm s). furosemide 2022-06 Yes [id number] 20mg Take 1 U nivers 20 mg 0-13 tablet by ity of tablet 00:00: mouth once [place] 00 daily as Medical needed Branch (Leg swelling). dicyclomine 2022-06 Yes [id number] 20mg Take 1 Univers 20 mg 0-13 tablet by ity of tablet 00:00: mouth (three) Medical times Branch daily as needed (Abdominal Pain/Spasm s). furosemide 2022-06 Yes [id number] 20mg Take 1 U nivers 20 mg 0-13 tablet by ity of tablet 00:00: mouth once 00 daily as Medical needed Branch (Leg swelling). dicyclomine 2022-06 Yes [id number] 20mg Take 1 Univers 20 mg 0-13 tablet by ity of tablet 00:00: mouth 3 (three) Medical times Branch daily as needed (Abdominal Pain/Spasm s). furosemide 2022-06 Yes [id number] 20mg Take 1 U nivers 20 mg 0-13 tablet by ity of tablet 00:00: mouth once [place] 00 daily as Medical needed Branch (Leg swelling). dicyclomine 2022-06 Yes [id number] 20mg Take 1 Univers 20 mg 0-13 tablet by ity of tablet 00:00: mouth 3 00 (three) Medical times Branch daily as needed (Abdominal Pain/Spasm s). furosemide 2022-06 Yes [id number] 20mg Take 1 U nivers 20 mg 0-13 tablet by ity of tablet 00:00: mouth once [place] 00 daily as Medical needed Branch (Leg swelling). dicyclomine 2022-06 Yes [id number] 20mg Take 1 Univers 20 mg 0-13 tablet by ity of tablet 00:00: mouth 3 [place] 00 (three) Medical times Branch daily as needed (Abdominal Pain/Spasm s). furosemide 2022-06- No 40mg 40 mg, Univ ers (LASIX) 0-12 10-12 Slow IV ity of injection 16:45: 17:22 [place], [place] 40 mg 00 :00 ONCE, 1 Medical dose, On Branch Dolly 04/04/23 at 1145, Routine lamoTRIgine 2022-06 Yes 150mg 150 mg, Un chase (LAMICTAL) 0-11 Oral, ity of tablet 150 14:00: DAILY, [place] mg 00 First dose Medical on Sat Branch 04/03/23 at 0900, Until Discontinu ed, Routine omeprazole 2022-06 Yes 40mg 40 mg, Unive rs (PRILOSEC) 0-11 Oral, ity of capsule 40 14:00: DAILY, [place] mg 00 First dose Medical on Sat Branch 04/03/23 at 0900, Until Discontinu ed DULoxetine 2022-06 Yes 30mg 30 mg, Unive rs (CYMBALTA) 0-11 Oral, ity of capsule 30 14:00: DAILY, [place] mg 00 First dose Medical on Sat Branch 04/03/23 at 0900, Until Discontinu ed, Routine citalopram 2022-06 Yes 40mg 40 mg, Unive rs (CELEXA) 0-11 Oral, ity of tablet 40 14:00: DAILY, [place] mg 00 First dose Medical on Sat Branch 04/03/23 at 0900, Until Discontinu ed, Routine sennosides- 2022-06- No 1{tbl} 1 tablet, Univers docusate 0-11 10-13 Oral, ity of sodium 14:00: 16:12 DAILY, [place] (SENOKOT-S) 00 :38 First dose Me dical 8.6-50 mg on Sat Branch per tablet 04/03/23 1 tablet at 0900, Until Discontinu ed, Routine busPIRone 2022-06 Yes 10mg 10 mg, Univer s (BUSPAR) 0-11 Oral, BID, ity o f tablet 10 13:00: First dose [place] mg 00 on Sat Medical 04/03/23 Branch at 0800, Until Discontinu ed, Routine heparin 2022-06 Yes 5000U 5,000 Univers (porcine) 0-11 Units, ity of injection 11:00: Subcutaneo [place] 5,000 Units 00 us, Q8H, Medi crispin First dose Branch on Sat04/03/23 at 0600, Until Discontinu ed, Routine acetaminoph 2022-06 Yes 325mg 325 mg, Un chase en 0-11 Oral, ity of (TYLENOL) 10:57: Q6HPRN, [place] tablet 325 42 Starting Medic al mg on Sat Branch 04/03/23 at 0557, Until Discontinu ed, Routine, Temp > 38 C, Pain (scale 1-3) gabapentin 2022-06 Yes 300mg 300 mg, Uni vers (NEURONTIN) 0-11 Oral, ity of capsule 300 10:32: BIDPRN, [place] mg 36 Starting Medical on Sat Branch 04/03/23 at 0532, Until Discontinu ed, Routine, Neuropathy meloxicam 2022-06 Yes 15mg 15 mg, Univer s (MOBIC) 0-11 Oral, ity of tablet 15 10:32: QDAILYPRN, [place] mg 16 Starting Medical on Sat Branch 04/03/23 at 0532, Until Discontinu ed, Routine, Pain furosemide 2022-06 No 40mg 40 mg, Univ ers (LASIX) 0-11 10-11 Slow IV ity of injection 10:00: 12:25 [place], [place] 40 mg 00 :00 ONCE, 1 Medical dose, On Branch Sat04/03/23 at 0500, Routine hydrOXYzine 2022-06 Yes 25mg 25 mg, Univ ers (ATARAX) 0-11 Oral, ity of tablet 25 08:59: QHSPRN, [place] mg 02 Starting Medical on Sat04/03/23 at 0359, Until Discontinu ed, Routine, Itching, Anxiety NaCl 0.9% 2022-06 No 500mL at 999 Univ ers (NS) bolus 0-11 10-11 mL/hr, 500 it y of infusion 05:30: 06:15 mL, IV [place] 500 mL 00 :00 Infusion, Medical ONCE, 1 Branch dose, On Sat04/03/23 at 0030, SANJAY traMADoL 2022-06- No 50mg 50 mg, Univer s (ULTRAM) 0-11 10-11 Oral, ity of tablet 50 04:30: 04:27 ONCE, 1 [place] mg 00 :00 dose, On Medical Tue Branch 04/02/23 at 2330, Routine MELOXICAM 2022-06 Yes [id number] 15mg TAKE ONE Univers 15 mg 0-10 9104 TABLET BY ity of tablet 00:00: MOUTH [place] 00 EVERY Medical MORNING Branch MELOXICAM 2022-06 Yes [id number] 15mg TAKE ONE Univers 15 mg 0-10 9104 TABLET BY ity of tablet 00:00: MOUTH [place] 00 EVERY Medical MORNING Branch MELOXICAM 2022-06 Yes [id number] 15mg TAKE ONE Univers 15 mg 0-10 9104 TABLET BY ity of tablet 00:00: MOUTH [place] 00 EVERY Medical MORNING Branch MELOXICAM 2022-06 Yes [id number] 15mg TAKE ONE Univers 15 mg 0-10 9104 TABLET BY ity of tablet 00:00: MOUTH [place] 00 EVERY Medical MORNING Branch MELOXICAM 2022-06 Yes [id number] 15mg TAKE ONE Univers 15 mg 0-10 9104 TABLET BY ity of tablet 00:00: MOUTH [place] 00 EVERY Medical MORNING Branch MELOXICAM 2022-06 Yes [id number] 15mg TAKE ONE Univers 15 mg 0-10 9104 TABLET BY ity of tablet 00:00: MOUTH [place] 00 EVERY Medical MORNING Branch MELOXICAM 2022-06 Yes [id number] 15mg TAKE ONE Univers 15 mg 0-10 9104 TABLET BY ity of tablet 00:00: MOUTH [place] 00 EVERY Medical MORNING Branch MELOXICAM 2022-06 Yes [id number] 15mg TAKE ONE Univers 15 mg 0-10 9104 TABLET BY ity of tablet 00:00: MOUTH [place] 00 EVERY Medical MORNING Branch lamoTRIgine 2022-06 Yes 150mg 150 mg, Un chase (LAMICTAL) 0-09 Oral, ity of tablet 150 14:00: DAILY, [place] mg 00 First dose Medical on Mon Branch 04/01/23 at 0900, Until Discontinu ed, Routine DULoxetine 2022-06 Yes 30mg 30 mg, Unive rs (CYMBALTA) 0-09 Oral, ity of capsule 30 14:00: DAILY, [place] mg 00 First dose Medical on [facility] 04/01/23 at 0900, Until Discontinu ed, Routine busPIRone 2022-06 Yes 10mg 10 mg, Univer s (BUSPAR) 0-09 Oral, BID, ity o f tablet 10 01:00: First dose [place] mg 00 on [facility] 03/31/23 at Branch 2000, Until Discontinu ed, Routine enoxaparin 2022-06 Yes 40mg 40 mg, Unive rs (LOVENOX) 0-08 Subcutaneo ity of injection 22:00: [place], DAILY, [place] 40 mg 00 First dose Medical on [facility] 03/31/23 at 1700, Until Discontinu ed, Routine hydroCHLORO 2022-06 Yes 12.5mg 12.5 mg, Univers thiazide 0-08 Oral, ity of (ESIDRIX) 20:00: DAILY, [place] capsule 00 First dose Medica l 12.5 mg on [facility] 03/31/23 at 1500, Until Discontinu ed, Routine lamoTRIgine 2022-06 Yes 150mg Take 1 Uni vers (LAMICTAL) 0-08 tablet by ity of 150 mg 17:41: mouth in [place] tablet the Medical morning. Branch Biotin 2022-06 Yes 1{capsu Take 1 Univer s 10,000 mcg 0-08 le} capsule by ity of Cap 17:41: mouth [place] [id number] daily. Medical Branch citalopram 2022-06 Yes 40mg Take 1 Unive rs 40 mg 0-08 tablet by ity of tablet 17:41: mouth in [place] [address] the Medical morning. Branch gabapentin 2022-06 Yes 300mg Take 1 Univ ers 300 mg 0-08 capsule by ity of capsule 17:41: mouth in [place] [address] the Medical morning Branch and 1 capsule in the evening. hydrOXYzine 2022-06 Yes 25mg Take 1 Univ ers 25 mg 0-08 tablet by ity of tablet 17:41: mouth at [place] [address] bedtime as Medical needed for Branch Itching or Anxiety. lamoTRIgine 2022-06 Yes 150mg Take 1 Uni vers (LAMICTAL) 0-08 tablet by ity of 150 mg 17:41: mouth in [place] tablet 37 the Medical morning. Branch Biotin 2022-06 Yes 1{capsu Take 1 Univer s 10,000 mcg 0-08 le} capsule by ity of Cap 17:41: mouth [place] 37 daily. Medical Branch citalopram 2022-06 Yes 40mg Take 1 Unive rs 40 mg 0-08 tablet by ity of tablet 17:41: mouth in [place] 37 the Medical morning. Branch gabapentin 2022-06 Yes 300mg Take 1 Univ ers 300 mg 0-08 capsule by ity of capsule 17:41: mouth in [place] 37 the Medical morning Branch and 1 capsule in the evening. hydrOXYzine 2022-06 Yes 25mg Take 1 Univ ers 25 mg 0-08 tablet by ity of tablet 17:41: mouth at [place] [address] bedtime as Medical needed for Branch Itching or Anxiety. lamoTRIgine 2022-06 Yes 150mg Take 1 Uni vers (LAMICTAL) 0-08 tablet by ity of 150 mg 17:41: mouth in [place] tablet 37 the Medical morning. Branch Biotin 2022-06 Yes 1{capsu Take 1 Univer s 10,000 mcg 0-08 le} capsule by ity of Cap 17:41: mouth [place] daily. Medical Branch citalopram 2022-06 Yes 40mg Take 1 Unive rs 40 mg 0-08 tablet by ity of tablet 17:41: mouth in [place] [address] the Medical morning. Branch gabapentin 2022-06 Yes 300mg Take 1 Univ ers 300 mg 0-08 capsule by ity of capsule 17:41: mouth in [place] [address] the Medical morning Branch and 1 capsule in the evening. hydrOXYzine 2022-06 Yes 25mg Take 1 Univ ers 25 mg 0-08 tablet by ity of tablet 17:41: mouth at [place] [address] bedtime as Medical needed for Branch Itching or Anxiety. lamoTRIgine 2022-06 Yes 150mg Take 1 Uni vers (LAMICTAL) 0-08 tablet by ity of 150 mg 17:41: mouth in [place] tablet 37 the Medical morning. Branch Biotin 2022-06 Yes 1{capsu Take 1 Univer s 10,000 mcg 0-08 le} capsule by ity of Cap 17:41: mouth [place] 37 daily. Medical Branch citalopram 2022-06 Yes 40mg Take 1 Unive rs 40 mg 0-08 tablet by ity of tablet 17:41: mouth in [place] 37 the Medical morning. Branch gabapentin 2022-06 Yes 300mg Take 1 Univ ers 300 mg 0-08 capsule by ity of capsule 17:41: mouth in [place] [address] the Medical morning Branch and 1 capsule in the evening. hydrOXYzine 2022-06 Yes 25mg Take 1 Univ ers 25 mg 0-08 tablet by ity of tablet 17:41: mouth at [place] [address] bedtime as Medical needed for Branch Itching or Anxiety. cefTRIAXone 2022-06- Yes 1000mg 1,000 mg, Univers (ROCEPHIN) 0-08 10-15 IV ity of 1,000 mg in 16:30: 16:29 [place], [place] NaCl 0.9% 00 :00 Q24H ABX, Medic al (NS) 100 mL 7 doses, Bran ch MINI-BAG First dose on 03/31/23 at 1130, Last dose on [facility] 04/06/23 at 1130, Administer over 30 Minutes, 100 mL
Reas on for Anti-Infec tive: Documented Infection< br>Documen nanette Infection Site: Respirator y
Durat ion of Therapy: 7 days ondansetron 2022-06 Yes 4mg 4 mg, Slow Univers (ZOFRAN 0-08 IV Push, ity of (PF)) 15:17: Q6HPN, [place] injection 4 10 Starting Medi crispin mg on [facility] 03/31/23 at 1017, Until Discontinu ed, Routine, Nausea and Vomiting (N/V) acetaminoph 2022-06 Yes 650mg 650 mg, Un chase en 0-08 Oral, ity of (TYLENOL) 15:17: [place], [place] tablet 650 02 Starting Medic al mg on [facility] 03/31/23 at 1017, Until Discontinu ed, Routine, Pain (scale 1-3) acetaminoph 2022-06- No 1000mg 1,000 mg, Univers en 0-08 10-08 Oral, ity of (TYLENOL) 13:45: 12:34 ONCE, [place] tablet 00 :00 dose, On Medical 1,000 mg [facility] 03/31/23 at 0845, Routine cefdinir 2022-06- No 300mg 300 mg, Univ ers (OMNICEF) 0-08 10-08 Oral, ity of capsule 300 10:15: 10:10 ONCE, 1 [place] mg 00 :00 dose, On Medical [place] Branch 03/31/23 at 0515, SANJAY
Re ason for Anti-Infec tive: Documented Infection< br>Documen nanette Infection Site: Urine
D uration of Therapy: Other (see Comments) furosemide 2022-06 No 40mg 40 mg, IV U nivers (LASIX) 0-08 10-08 Push, ity of injection 10:00: 10:10 ONCE, 1 [place] 40 mg 00 :00 dose, On [facility] Branch 03/31/23 at 0500, SANJAY lamoTRIgine 2022-06 Yes 150mg Take 150 U nivers (LAMICTAL) 0-05 mg by ity of 150 mg 18:03: mouth [place] tablet 52 daily. Medical Branch Biotin 2022-06 Yes 1{capsu Take 1 Univer s 10,000 mcg 0-05 le} capsule by ity of Cap 18:03: mouth [place] 52 daily. Medical Branch citalopram 2022-06 Yes 40mg Take 1 Unive rs 40 mg 0-05 tablet by ity of tablet 18:03: mouth in [place] [address] the Medical morning. Branch gabapentin 2022-06 Yes 300mg Take 1 Univ ers 300 mg 0-05 capsule by ity of capsule 18:03: mouth in [place] [address] the Medical morning Branch and 1 capsule in the evening. hydrOXYzine 2022-06 Yes 25mg Take 1 Univ ers 25 mg 0-05 tablet by ity of tablet 18:03: mouth at [place] [address] bedtime as Medical needed for Branch Itching or Anxiety. lamoTRIgine 2022-06 Yes 150mg Take 150 U nivers (LAMICTAL) 0-05 mg by ity of 150 mg 18:03: mouth [place] tablet 52 daily. Medical Branch Biotin 2022-06 Yes 1{capsu Take 1 Univer s 10,000 mcg 0-05 le} capsule by ity of Cap 18:03: mouth [place] 52 daily. Medical Branch citalopram 2022-06 Yes 40mg Take 1 Unive rs 40 mg 0-05 tablet by ity of tablet 18:03: mouth in [place] [address] the Medical morning. Branch gabapentin 2022-06 Yes 300mg Take 1 Univ ers 300 mg 0-05 capsule by ity of capsule 18:03: mouth in [place] [address] the Medical morning Branch and 1 capsule in the evening. hydrOXYzine 2022-06 Yes 25mg Take 1 Univ ers 25 mg 0-05 tablet by ity of tablet 18:03: mouth at [place] 52 bedtime as Medical needed for Branch Itching or Anxiety. KCL 2022-06- No 40meq 40 mEq, Univers (KLOR-CON 0-05 10-05 Oral, ity of M20) tablet 14:00: 13:30 ONCE, 1 [place] 40 mEq 00 :00 dose, On Medical [facility] Branch 03/28/23 at 0900, Routine dextrometho 2022-06 Yes 5mL 5 mL, Unive rs rphan-guaif 0-05 Oral, ity of enesin 05:49: Q6HPRN, [place] (ROBITUSSIN 13 Starting Medi crispin DM) 10-100 on [facility] mg/5 mL 03/28/23 at solution 5 0049, mL Until Discontinu ed, Routine, Cough cefTRIAXone 2022-06- Yes 1000mg 1,000 mg, Univers (ROCEPHIN) 0-05 -09 IV ity of 1,000 mg in 05:00: 04:59 [facility], [place] NaCl 0.9% 00 :00 Q24H ABX, Medic al (NS) 100 mL 4 doses, Bran ch MINI-BAG First dose on [facility] 03/28/23 at 0000, Last dose on Sat03/31/23 at 0000, Administer over 30 Minutes, 100 mL
Reas on for Anti-Infec tive: Documented Infection< br>Documen nanette Infection Site: Respirator y
Durat ion of Therapy: 7 days clonazePAM 2022-06 Yes .5mg 0.5 mg, Univ ers (KLONOPIN) 0-05 Oral, TID, ity of tablet 0.5 01:00: First dose [place] mg 00 on [facility] Medical 03/27/23 at [place] 1999, Until Discontinu ed, Routine famotidine 2022-06 Yes 20mg 20 mg, Unive rs (PEPCID AC) 0-05 Oral, BID, it y of tablet 20 01:00: First dose [place] mg 00 on Sat [facility] 03/27/23 at [place] 1999, Until Discontinu ed, Routine azithromyci 2022-06- Yes [id number] 250mg Take 1 Univers n 250 mg 0-05 10-10 tablet by ity o f tablet 00:00: 04:59 mouth in [place] 00 :00 the Medical morning Branch for 4 days. azithromyci 2022-06- Yes [id number] 250mg Take 1 Univers n 250 mg 0-05 10-10 tablet by ity o f tablet 00:00: 04:59 mouth in [place] 00 :00 the Medical morning Branch for 4 days. azithromyci 2022-06- Yes [id number] 250mg Take 1 Univers n 250 mg 0-05 10-10 tablet by ity o f tablet 00:00: 04:59 mouth in [place] 00 :00 the Medical morning Branch for 4 days. azithromyci 2022-06- Yes [id number] 250mg Take 1 Univers n 250 mg 0-05 10-10 tablet by ity o f tablet 00:00: 04:59 mouth in [place] 00 :00 the Medical morning Branch for 4 days. azithromyci 2022-06- Yes [id number] 250mg Take 1 Univers n 250 mg 0-05 10-10 tablet by ity o f tablet 00:00: 04:59 mouth in [place] 00 :00 the [facility] morning Branch for 4 days. azithromyci 2022-06- No [id number] 250mg Take 1 Univers n 250 mg 0-05 10-10 tablet by ity o f tablet 00:00: 04:59 mouth in [place] 00 :00 the [facility] morning Branch for 4 days. citalopram 2022-06 Yes 40mg 40 mg, Unive rs (CELEXA) 0-04 Oral, ity of tablet 40 14:00: DAILY, [place] mg 00 First dose Medical on Sat03/27/23 at 0900, Until Discontinu ed, Routine DULoxetine 2022-06 Yes 30mg 30 mg, Unive rs (CYMBALTA) 0-04 Oral, ity of capsule 30 14:00: DAILY, [place] mg 00 First dose Medical on Sat03/27/23 at 0900, Until Discontinu ed, Routine lamoTRIgine 2022-06 Yes 150mg 150 mg, Un chase (LAMICTAL) 0-04 Oral, ity of tablet 150 14:00: DAILY, [place] mg 00 First dose Medical on Sat03/27/23 at 0900, Until Discontinu ed, Routine enoxaparin 2022-06 Yes 40mg 40 mg, Unive rs (LOVENOX) 0-04 Subcutaneo ity of injection 14:00: us, DAILY, [place] 40 mg 00 First dose Medical on Sat03/27/23 at 0900, Until Discontinu ed, Routine busPIRone 2022-06 Yes 10mg 10 mg, Univer s (BUSPAR) 0-04 Oral, BID, ity o f tablet 10 13:00: First dose [place] mg 00 on Sat03/27/23 at Branch 0800, Until Discontinu ed, Routine gabapentin 2022-06 Yes 300mg 300 mg, Uni vers (NEURONTIN) 0-04 Oral, BID, it y of capsule 300 13:00: First dose [place] mg 00 on Sat03/27/23 at Branch 0800, Until Discontinu ed, Routine azithromyci 2022-06- Yes 500mg 500 mg, IV Univers n 0-03-30 Piggyback, ity of (ZITHROMAX) 09:15: 09:14 Q24H ABX, [place] 500 mg in 00 :00 3 doses, Medica l NaCl 0.9% First dose Bran ch (NS) 250 mL on Sat [facility] 03/27/23 at IV 0415, Last piggyback dose on Sat03/29/23 at 0415, Administer over 60 Minutes, 250 mL
Reas on for Anti-Infec tive: Documented Infection& lt;br>Docu mented Infection Site: Respirator y
Durat ion of Therapy: 7 days KCL 2022-06- No 40meq 40 mEq, Univers (KLOR-CON 0-04 10- Oral, ity of M20) tablet 09:15: 09:19 ONCE, 1 [place] 40 mEq 00 :00 dose, On Medical Sat [place] 03/27/23 at 0415, Routine hydrOXYzine 2022-06 Yes 25mg 25 mg, Univ ers (ATARAX) 0-04 Oral, ity of tablet 25 09:12: QHSPRN, [place] mg 20 Starting Medical on Sat [place] 03/27/23 at 0412, Until Discontinu ed, Routine, Itching, Anxiety NaCl 0.9% 2022-06- No 1000mL at 125 Uni vers (NS) IV 0-04 10-04 mL/hr, IV ity of infusion 08:15: 20:25 Infusion, [place] 1,000 mL 00 :04 CONTINUOUS Medic al , Starting Branch on Sat03/27/23 at 0315, Until Sat03/27/23 at 1525, Routine hydrALAZINE 2022-06 Yes 10mg 10 mg, Univ ers (APRESOLINE 0-04 Oral, ity of ) tablet 10 08:08: Q6HPRN, [place] mg 28 Starting Medical on Sat Branch 03/27/23 at 0308, Until Discontinu ed, Routine, SBP>160, DBP>100 ondansetron 2022-06 Yes 4mg 4 mg, Slow Univers (ZOFRAN 0-04 IV Push, ity of (PF)) 08:07: Q6HPRN, [place] injection 4 21 Starting Medi crispin mg on Sat Branch 03/27/23 at 0307, Until Discontinu ed, Routine, Nausea and Vomiting (N/V) acetaminoph 2022-06- Yes 1{tbl} 1 tablet, [facility] en-codeine 0-04 10-06 Oral, ity of (TYLENOL 08:07: [facility]06 [facility] [place] #[facility] 300-30 17 :17 Starting Medic al mg tablet 1 on Sat Branch tablet 03/27/23 at 0307, Until Sat03/29/23 at 0306, Routine, Pain (scale 4-6) acetaminoph 2022-06 Yes 650mg 650 mg, Un chase en 0-04 Oral, ity of (TYLENOL) 08:07: [facility] [place] tablet 650 16 Starting Medic al mg on Sat Branch 03/27/23 at 0307, Until Discontinu ed, Routine, Pain (scale 1-3) acetaminoph 2022-06- No 1000mg 1,000 mg, Univers en 0-04 10-04 Oral, ity of (TYLENOL) 07:30: 06:40 ONCE, 1 [place] tablet 00 :00 dose, On Medical 1,000 mg Sat Branch 03/27/23 at 0230, SANJAY LORazepam 2022-06- No .5mg 0.5 mg, Univ ers (ATIVAN) 003-27 Oral, ity of tablet 0.5 06:45: 07:01 ONCE, 1 [place] mg 00 :00 dose, On Medical Sat03/27/23 at 0145, SANJAY cefTRIAXone 2022-06- No 1000mg 1,000 mg, Univers (ROCEPHIN) 003-27 IV ity of 1,000 mg in 04:45: 05:33 Piggyback, [place] NaCl 0.9% 00 :00 ONCE, 1 Medical (NS) 100 mL dose, On Bran ch MINI-BAG Sat03/26/23 at 2345, Administer over 30 Minutes, 100 mL
Reas on for Anti-Infec tive: Documented Infection< br>Documen nanette Infection Site: Respirator y
Du ration of Therapy: Other (see Comments) NaCl 0.9% 2022-06 No 500mL at 999 [facility] ers (NS) bolus 0- mL/hr, 500 it y of infusion 04:45: 05:33 mL, IV [place] 500 mL 00 :00 Infusion, Medical ONCE, 1 Branch dose, On Sat03/26/23 at 2345, SANJAY potassium 2022-06 No 10meq 10 mEq, IV Univers chloride in 003-27 Piggyback, i ty of water 10 04:45: 05:15 ONCE, 1 [place] mEq/100 mL 00 :00 dose, On Medic al RTU 10 mEq Sat03/26/23 at 2345, Administer over 60 Minutes, 100 mL multivit 2022-06- No 1{tbl} Take 1 [facility] ers with 003-27 tablet by ity of calcium,iro 04:12: 00:00 mouth [place] n,min 41 :00 daily. Medical (MULTIVITAM Branch IN-CALCIUM AND IRON ORAL) KCL 2022-06 No 40meq 40 mEq, Univers (KLOR-CON 003-27 Oral, ity of M20) tablet 04:00: 04:11 ONCE, 1 [place] 40 mEq 00 :00 dose, On Sat03/26/23 at 2300, SANJAY traMADoL 2023-0 2023- No 50mg 50 mg, Univer s (ULTRAM) 12-13 Oral, ity of tablet 50 05:15: 04:14 ONCE, 1 [place] mg 00 :00 dose, On Medical [place] Branch 12/13/22 at 0015, Routine cyanocobala 2022- No 1000ug 1,000 mcg, Univers min (DODEX) 12-13 Intramuscu i ty of injection 03:15: 03:24 [place], ONCE, [place] 1,000 mcg 00 :00 1 dose, On Medi crispin [facility] Branch 12/12/22 at 2215, Routine thiamine 2022- No 100mg IV Univers (VITAMIN 12-13 Piggyback, ity of B1) 100 mg 03:15: 04:24 ONCE NOW, [place] in NaCl 00 :00 1 dose, On Medica l 0.9% (NS) [facility] Branch piggyback 12/12/22 at 2215, 50 mL iopamidol 2022- No [id number] 100mL 100 mL, Univers (ISOVUE 12-13 Intravenou ity o f 370-500 mL) 02:00: 01:55 s, ONCE, 1 [place] injection 00 :00 dose, On Medica l 100 mL [facility] Branch 12/12/22 at 2115, Routine magnesium No 2g 2 g, IV Univ ers sulfate in 12-13 Piggyback, it y of water 2 01:15: 03:11 Administer [place] gram/50 mL 00 :00 over 20 Medica l (4 %) Minutes, Branch infusion 2 ONCE, 1 g dose, On Sat12/12/22 at 2014, Routine D5W 0.9% 2022- No 1000mL at 999 Univ ers NaCl (NS) 12-13 mL/hr, ity of IV infusion 01:15: 04:36 1,000 mL, [place] 1,000 mL 00 :00 IV Medical Infusion, Branch ONCE, 1 dose, On Sat12/12/22 at 2014, Routine azithromyci 2022- No 1000mg 1,000 mg, Univers n 12-13 Oral, ity of (ZITHROMAX) 00:30: 02:34 ONCE, 1 [place] tablet 00 :00 dose, On Medical 1,000 mg Sat [place] 12/12/22 at 1930, SANJAY
Re ason for Anti-Infec tive: Empiric Therapy for Suspected Infection< br>Empiric Therapy Site: Abdominal< br>Duratio n of therapy: 72 hours famotidine 2022- No 20mg 20 mg, Univ ers (PEPCID 12-13 Slow IV ity of (PF)) 00:30: 02:31 Push, [place] injection 00 :00 ONCE, 1 Medical 20 mg dose, On Branch [facility] 12/12/22 at 1930, SANJAY diphenhydrA 2022- No 25mg 25 mg, Uni vers MINE 12-13 Slow IV ity of (BENADRYL) 00:30: 02:27 Push, [place] injection 00 :00 ONCE, 1 Medical 25 mg dose, On [facility] 12/12/22 at 1930, STAT haloperidol 2022- No 1.25mg 1.25 mg, Univers lactate 12-13 Intravenou ity o f (HALDOL) 00:30: 02:28 s, ONCE, 1 [place] injection 00 :00 dose, On Medica l 1.25 mg Sat [place] 12/12/22 at 1930, STAT ondansetron Yes [id number] 4mg Take 1 Univers 4 mg 6-21 tablet by ity of disintegrat 00:00: mouth [place] ing tablet 00 every 8 Medica l (eight) Branch hours as needed for Nausea and Vomiting (N/V) for up to 16 doses. famotidine Yes [id number] 40mg Take 1 U nivers 40 mg 6-21 tablet by ity of tablet 00:00: mouth in [place] 00 the Medical morning. Branch ondansetron 0 2022- No [id number] 4mg Take 1 Univers 4 mg 6-21 10-04 tablet by ity of disintegrat 00:00: 00:00 [place] tablet 00 :00 every 8 Medica l (eight) Branch hours as needed for Nausea and Vomiting (N/V) for up to 16 doses. famotidine 0 2022- No [id number] 40mg Take 1 Univers 40 mg 6-21 10-04 tablet by ity of tablet 00:00: 00:00 mouth in [place] 00 :00 the Medical morning. Branch iopamidol 2022- No [id number] 100mL 100 mL, Univers (ISOVUE 6-10 06-10 Intravenou ity o f 370-500 mL) 02:15: 02:15 s, ONCE, 1 [place] injection 00 :00 dose, On Medica l 100 mL Sat11/30/22 Branch at 2115, Routine NaCl 0.9% 2022- No 1000mL at 999 Uni vers (NS) bolus 6 06-10 mL/hr, ity of infusion 01:15: 03:30 1,000 mL, [place] 1,000 mL 00 :00 IV Medical Infusion, Branch ONCE, 1 dose, On Sat11/30/22 at 2015, STAT meloxicam 2022-2022- No [id number] 15mg Take 1 Univers 15 mg 5-04 06-04 9104 tablet by ity of tablet 00:00: 04:59 mouth in [place] 00 :00 [facility] for 30 days. meloxicam 2022-0 2022- No [id number] 15mg Take 1 Univers 15 mg 5-04 06-04 9104 tablet by ity of tablet 00:00: 04:59 mouth in [place] 00 :00 [facility] for 30 days. meloxicam 2022-0 2022- No [id number] 15mg Take 1 Univers 15 mg 5-04 06-04 9104 tablet by ity of tablet 00:00: 04:59 mouth in [place] 00 :00 [facility] for 30 days. meloxicam 2022-0 2022- No [id number] 15mg Take 1 Univers 15 mg 5-04 06-04 9104 tablet by ity of tablet 00:00: 04:59 mouth in [place] 00 :00 [facility] for 30 days. meloxicam 2022-0 2022- No [id number] 15mg Take 1 Univers 15 mg 5-04 06-04 9104 tablet by ity of tablet 00:00: 04:59 mouth in [place] 00 :00 [facility] for 30 days. nystatin 2022-0 Yes [id number] Apply to Univers 100,000 1-24 area(s) 4 ity of unit/gram 00:00: (four) [place] cream 00 times Medical daily. Branch nystatin 2023-0 Yes [id number] Apply to Univers 100,000 1-24 area(s) 4 ity of unit/gram 00:00: (four) [place] cream 00 times Medical daily. Branch nystatin 2023-0 Yes [id number] Apply to Univers 100,000 1-24 area(s) 4 ity of unit/gram 00:00: (four) [place] cream 00 times Medical daily. Branch nystatin 2023-0 Yes [id number] Apply to Univers 100,000 1-24 area(s) 4 ity of unit/gram 00:00: (four) [place] cream 00 times Medical daily. Branch nystatin 2023-0 Yes [id number] Apply to Univers 100,000 1-24 area(s) 4 ity of unit/gram 00:00: (four) [place] cream 00 times Medical daily. Branch nystatin 2023-0 Yes [id number] Apply to Univers 100,000 1-24 area(s) 4 ity of unit/gram 00:00: (four) [place] cream 00 times Medical daily. Branch nystatin 2023-0 Yes [id number] Apply to Univers 100,000 1-24 area(s) 4 ity of unit/gram 00:00: (four) [place] cream 00 times Medical daily. Branch nystatin 2023-0 Yes [id number] Apply to Univers 100,000 1-24 area(s) 4 ity of unit/gram 00:00: (four) [place] cream 00 times Medical daily. Branch nystatin 2023-0 Yes [id number] Apply to Univers 100,000 1-24 area(s) 4 ity of unit/gram 00:00: (four) [place] cream 00 times Medical daily. Branch nystatin 2023-0 Yes [id number] Apply to Univers 100,000 1-24 area(s) 4 ity of unit/gram 00:00: (four) [place] cream 00 times Medical daily. Branch nystatin 2023-0 Yes [id number] Apply to Univers 100,000 1-24 area(s) 4 ity of unit/gram 00:00: (four) [place] cream 00 times Medical daily. Branch nystatin 2023-0 2023- No [id number] Apply to Univers 100,000 1-24 06-15 area(s) 4 ity of unit/gram 00:00: 00:00 (four) [place] cream 00 :00 times Medical daily. Branch nystatin 2022- No [id number] Apply to Univers 100,000 1-24 06-15 area(s) 4 ity of unit/gram 00:00: 00:00 (four) [place] cream 00 :00 times Medical daily. Branch acetaminoph 2021-06- No 1000mg 1,000 mg, Univers en 2-08 12-08 Oral, ity of (TYLENOL) 15:15: 15:11 ONCE, 1 [place] tablet 00 :00 dose, On Medical 1,000 mg [place] Branch 05/31/22 at 0915, SANJAY ibuprofen 2021-06 Yes [id number] 600mg Take 1 U nivers 600 mg 2-08 tablet by ity of tablet 00:00: mouth [place] 00 every 6 Medical (six) Branch hours as needed for Pain (scale 4-6). benzonatate 2021-06 Yes [id number] 200mg Take 1 Univers 200 mg 2-08 capsule by ity of capsule 00:00: mouth 3 [place] 00 (three) Medical times Branch daily as needed for Cough for up to 20 doses. ondansetron 2021-06 Yes [id number] 4mg Take 1 Univers (ZOFRAN) 4 2-08 tablet by ity of mg tablet 00:00: mouth [place] 00 every 8 Medical (eight) Branch hours as needed for Nausea and Vomiting (N/V). ibuprofen 2021-06 Yes [id number] 600mg Take 1 U nivers 600 mg 2-08 tablet by ity of tablet 00:00: mouth [place] 00 every 6 Medical (six) Branch hours as needed for Pain (scale 4-6). benzonatate 2021-06 Yes [id number] 200mg Take 1 Univers 200 mg 2-08 capsule by ity of capsule 00:00: mouth 3 [place] 00 (three) Medical times Branch daily as needed for Cough for up to 20 doses. ondansetron 2021-06 Yes [id number] 4mg Take 1 Univers (ZOFRAN) 4 2-08 tablet by ity of mg tablet 00:00: mouth [place] 00 every 8 Medical (eight) Branch hours as needed for Nausea and Vomiting (N/V). ibuprofen 2021-06 Yes [id number] 600mg Take 1 U nivers 600 mg 2-08 tablet by ity of tablet 00:00: mouth [place] 00 every 6 Medical (six) Branch hours as needed for Pain (scale 4-6). benzonatate 2021-06 Yes [id number] 200mg Take 1 Univers 200 mg 2-08 capsule by ity of capsule 00:00: mouth 3 [place] 00 (three) Medical times Branch daily as needed for Cough for up to 20 doses. ondansetron 2021-06 Yes [id number] 4mg Take 1 Univers (ZOFRAN) 4 2-08 tablet by ity of mg tablet 00:00: mouth [place] 00 every 8 Medical (eight) Branch hours as needed for Nausea and Vomiting (N/V). ibuprofen 2021-06 Yes [id number] 600mg Take 1 U nivers 600 mg 2-08 tablet by ity of tablet 00:00: mouth [place] 00 every 6 Medical (six) Branch hours as needed for Pain (scale 4-6). benzonatate 2021-06 Yes [id number] 200mg Take 1 Univers 200 mg 2-08 capsule by ity of capsule 00:00: mouth 3 [place] 00 (three) Medical times Branch daily as needed for Cough for up to 20 doses. ondansetron 2021-06 Yes [id number] 4mg Take 1 Univers (ZOFRAN) 4 2-08 tablet by ity of mg tablet 00:00: mouth [place] 00 every 8 Medical (eight) Branch hours as needed for Nausea and Vomiting (N/V). ibuprofen 2021-06 Yes [id number] 600mg Take 1 U nivers 600 mg 2-08 tablet by ity of tablet 00:00: mouth [place] 00 every 6 Medical (six) Branch hours as needed for Pain (scale 4-6). benzonatate 2021-06 Yes [id number] 200mg Take 1 Univers 200 mg 2-08 capsule by ity of capsule 00:00: mouth 3 [place] 00 (three) Medical times Branch daily as needed for Cough for up to 20 doses. ondansetron 2021-06 Yes [id number] 4mg Take 1 Univers (ZOFRAN) 4 2-08 tablet by ity of mg tablet 00:00: mouth [place] 00 every 8 Medical (eight) Branch hours as needed for Nausea and Vomiting (N/V). ibuprofen 2021-06 Yes [id number] 600mg Take 1 U nivers 600 mg 2-08 tablet by ity of tablet 00:00: mouth [place] 00 every 6 Medical (six) Branch hours as needed for Pain (scale 4-6). benzonatate 2021-06 Yes [id number] 200mg Take 1 Univers 200 mg 2-08 capsule by ity of capsule 00:00: mouth 3 [place] 00 (three) Medical times Branch daily as needed for Cough for up to 20 doses. ondansetron 2021-06 Yes [id number] 4mg Take 1 Univers (ZOFRAN) 4 2-08 tablet by ity of mg tablet 00:00: mouth [place] 00 every 8 Medical (eight) Branch hours as needed for Nausea and Vomiting (N/V). ibuprofen 2021-06 Yes [id number] 600mg Take 1 U nivers 600 mg 2-08 tablet by ity of tablet 00:00: mouth [place] 00 every 6 Medical (six) Branch hours as needed for Pain (scale 4-6). benzonatate 2021-06 Yes [id number] 200mg Take 1 Univers 200 mg 2-08 capsule by ity of capsule 00:00: mouth 3 [place] 00 (three) Medical times Branch daily as needed for Cough for up to 20 doses. ondansetron 2021-06 Yes [id number] 4mg Take 1 Univers (ZOFRAN) 4 2-08 tablet by ity of mg tablet 00:00: mouth [place] 00 every 8 Medical (eight) Branch hours as needed for Nausea and Vomiting (N/V). ibuprofen 2021-06 Yes [id number] 600mg Take 1 U nivers 600 mg 2-08 tablet by ity of tablet 00:00: mouth [place] 00 every 6 Medical (six) Branch hours as needed for Pain (scale 4-6). benzonatate 2021-06 Yes [id number] 200mg Take 1 Univers 200 mg 2-08 capsule by ity of capsule 00:00: mouth 3 [place] 00 (three) Medical times Branch daily as needed for Cough for up to 20 doses. ondansetron 2021-06 Yes [id number] 4mg Take 1 Univers (ZOFRAN) 4 2-08 tablet by ity of mg tablet 00:00: mouth [place] 00 every 8 Medical (eight) Branch hours as needed for Nausea and Vomiting (N/V). ibuprofen 2021-06 Yes [id number] 600mg Take 1 U nivers 600 mg 2-08 tablet by ity of tablet 00:00: mouth [place] 00 every 6 Medical (six) Branch hours as needed for Pain (scale 4-6). benzonatate 2021-06 Yes [id number] 200mg Take 1 [facility] 200 mg 2-08 capsule by [facility] of capsule 00:00: mouth 3 [place] 00 (three) Medical times Branch daily as needed for Cough for up to 20 doses. ondansetron 2021-06 Yes [id number] 4mg Take 1 [facility] (ZOFRAN) 4 2-08 tablet by ity of mg tablet 00:00: mouth [place] 00 every 8 Medical (eight) Branch hours as needed for Nausea and Vomiting (N/V). ibuprofen 2021-06 Yes [id number] 600mg Take 1 [facility] 600 mg 2-08 tablet by ity of tablet 00:00: mouth [place] 00 every 6 Medical (six) Branch hours as needed for Pain (scale 4-6). benzonatate 2021-06 Yes [id number] 200mg Take 1 [facility] 200 mg 2-08 capsule by ity of capsule 00:00: mouth 3 [place] 00 (three) Medical times Branch daily as needed for Cough for up to 20 doses. ondansetron 2021-06 Yes [id number] 4mg Take 1 [facility] (ZOFRAN) 4 2-08 tablet by ity of mg tablet 00:00: mouth [place] 00 every 8 Medical (eight) Branch hours as needed for Nausea and Vomiting (N/V). ibuprofen 2021-06 Yes [id number] 600mg Take 1 [facility] 600 mg 2-08 tablet by ity of tablet 00:00: mouth [place] 00 every 6 Medical (six) Branch hours as needed for Pain (scale 4-6). benzonatate 2021-06 Yes [id number] 200mg Take 1 [facility] 200 mg 2-08 capsule by ity of capsule 00:00: mouth 3 [place] 00 (three) Medical times Branch daily as needed for Cough for up to 20 doses. ondansetron 2021-06 Yes [id number] 4mg Take 1 [facility] (ZOFRAN) 4 2-08 tablet by ity of mg tablet 00:00: mouth [place] 00 every 8 Medical (eight) Branch hours as needed for Nausea and Vomiting (N/V). ibuprofen 2021-06 Yes [id number] 600mg Take 1 [facility] 600 mg 2-08 tablet by ity of tablet 00:00: mouth [place] 00 every 6 Medical (six) Branch hours as needed for Pain (scale 4-6). benzonatate 2021-06 Yes [id number] 200mg Take 1 [facility] 200 mg 2-08 capsule by ity of capsule 00:00: mouth 3 [place] 00 (three) Medical times Branch daily as needed for Cough for up to 20 doses. ondansetron 2021-06 Yes [id number] 4mg Take 1 [facility] (ZOFRAN) 4 2-08 tablet by ity of mg tablet 00:00: mouth [place] 00 every 8 Medical (eight) Branch hours as needed for Nausea and Vomiting (N/V). ibuprofen 2021-06- No [id number] 600mg Take 1 [facility] 600 mg 2-08 06-15 tablet by ity of tablet 00:00: 00:00 mouth [place] 00 :00 every 6 Medical (six) Branch hours as needed for Pain (scale 4-6). benzonatate 2021-06- No [id number] 200mg Take 1 [facility] 200 mg 2-08 06-15 capsule by ity of capsule 00:00: 00:00 mouth 3 [place] 00 :00 (three) Medical times Branch daily as needed for Cough for up to 20 doses. ondansetron 2021-06- No [id number] 4mg Take 1 [facility] (ZOFRAN) 4 2-08 06-15 tablet by ity of mg tablet 00:00: 00:00 mouth [place] 00 :00 every 8 Medical (eight) Branch hours as needed for Nausea and Vomiting (N/V). ibuprofen 2021-06- No [id number] 600mg Take 1 [facility] 600 mg 2-08 06-15 tablet by ity of tablet 00:00: 00:00 mouth [place] 00 :00 every 6 Medical (six) Branch hours as needed for Pain (scale 4-6). benzonatate 2021-06- No [id number] 200mg Take 1 [facility] 200 mg 2-08 06-15 capsule by ity of capsule 00:00: 00:00 mouth 3 [place] 00 :00 (three) Medical times Branch daily as needed for Cough for up to 20 doses. ondansetron 2021-06- No [id number] 4mg Take 1 [facility] (ZOFRAN) 4 2-08 06-15 tablet by ity of mg tablet 00:00: 00:00 mouth [place] 00 :00 every 8 Medical (eight) Branch hours as needed for Nausea and Vomiting (N/V). oseltamivir 2021-06- No [id number] 75mg Take 1 [facility] (TAMIFLU) 2 12-14 capsule by ity of 75 mg 00:00: 05:59 mouth in [place] capsule 00 :00 the Medical morning Branch and 1 capsule in the evening. Do all this for 5 days. oseltamivir 2021-06- No [id number] 75mg Take 1 [facility] (TAMIFLU) 110 11-16 capsule by ity of 75 mg 00:00: 05:59 mouth in [place] capsule 00 :00 the Medical morning Branch and 1 capsule in the evening. Do all this for 5 days. hydrocortis 2020-06 Yes [id number] Apply to [facility] one 2.5 % 1-08 affected [facility] of ointment 00:00: area(s) 2 [place] 00 (two) Medical times Branch daily. hydrocortis 2020-06 Yes [id number] Apply to [facility] one 2.5 % 1-08 affected [facility] of ointment 00:00: area(s) 2 [place] 00 (two) Medical times Branch daily. hydrocortis 2020-06 Yes [id number] Apply to [facility] one 2.5 % 1-08 affected [facility] of ointment 00:00: area(s) 2 [place] 00 (two) Medical times Branch daily. hydrocortis 2020-06 Yes [id number] Apply to [facility] one 2.5 % 1-08 affected [facility] of ointment 00:00: area(s) 2 [place] 00 (two) Medical times Branch daily. hydrocortis 2020-06 Yes [id number] Apply to [facility] one 2.5 % 1-08 affected [facility] of ointment 00:00: area(s) 2 [place] 00 (two) Medical times Branch daily. hydrocortis 2020-06 Yes [id number] Apply to [facility] one 2.5 % 1-08 affected [facility] of ointment 00:00: area(s) 2 [place] 00 (two) Medical times Branch daily. hydrocortis 2020-06 Yes [id number] Apply to [facility] one 2.5 % 1-08 affected [facility] of ointment 00:00: area(s) 2 [place] 00 (two) Medical times Branch daily. hydrocortis 2020-06 Yes [id number] Apply to [facility] one 2.5 % 1-08 affected it[facility] of ointment 00:00: area(s) 2 [place] 00 (two) Medical times Branch daily. hydrocortis 2020-06 Yes [id number] Apply to [facility] one 2.5 % 1-08 affected [facility] of ointment 00:00: area(s) 2 [place] 00 (two) Medical times Branch daily. hydrocortis 2020-06 Yes [id number] Apply to [facility] one 2.5 % 1-08 affected [facility] of ointment 00:00: area(s) 2 [place] 00 (two) Medical times Branch daily. hydrocortis 2020-06 Yes [id number] Apply to [facility] one 2.5 % 1-08 affected [facility] of ointment 00:00: area(s) 2 [place] 00 (two) Medical times Branch daily. hydrocortis 2020-06 Yes [id number] Apply to [facility] one 2.5 % 1-08 affected ity of ointment 00:00: area(s) 2 [place] 00 (two) Medical times Branch daily. hydrocortis 2020-06 Yes [id number] Apply to [facility] one 2.5 % 1-08 affected ity of ointment 00:00: area(s) 2 [place] 00 (two) Medical times Branch daily. hydrocortis 2020-06 Yes [id number] Apply to [facility] one 2.5 % 1-08 affected it[facility] of ointment 00:00: area(s) 2 [place] 00 (two) Medical times Branch daily. hydrocortis 2020-06 Yes [id number] Apply to [facility] one 2.5 % 1-08 affected ity of ointment 00:00: area(s) 2 [place] 00 (two) Medical times Branch daily. hydrocortis 2020-06 Yes [id number] Apply to [facility] one 2.5 % 1-08 affected ity of ointment 00:00: area(s) 2 [place] 00 (two) Medical times Branch daily. hydrocortis 2020-06 Yes [id number] Apply to [facility] one 2.5 % 1-08 affected [facility] of ointment 00:00: area(s) 2 [place] 00 (two) Medical times Branch daily. hydrocortis 2020-06 Yes [id number] Apply to [facility] one 2.5 % 1-08 affected ity of ointment 00:00: area(s) 2 [place] 00 (two) Medical times Branch daily. hydrocortis 2020-06 Yes [id number] Apply to [facility] one 2.5 % 1-08 affected ity of ointment 00:00: area(s) 2 [place] 00 (two) Medical times Branch daily. hydrocortis 2020-06- No [id number] Apply to [facility] one 2.5 % 1-08 06-15 affected ity o f ointment 00:00: 00:00 area(s) 2 [place] 00 :00 (two) Medical times Branch daily. hydrocortis 2020-06- No [id number] Apply to [facility] one 2.5 % 1-08 06-15 affected ity o f ointment 00:00: 00:00 area(s) 2 [place] 00 :00 (two) Medical times Branch daily. hydrocortis 2020-06- No [id number] Apply to [facility] one 2.5 % 1-08 06-15 affected ity o f ointment 00:00: 00:00 area(s) 2 [place] 00 :00 (two) Medical times Branch daily. nystatin 2020-06- No [id number] Apply to [facility] 100,000 07-01-24 area(s) 4 ity of unit/gram 00:00: 00:00 (four) [place] cream 00 :00 times Medical daily for Branch 7 days. nystatin 2020-06- No [id number] Apply to [facility] 100,000 07-0116 area(s) 4 ity of unit/gram 00:00: 05:59 (four) [place] cream 00 :00 times Medical daily for Branch 7 days. HYDROcodone 2020- No 1{tbl} Take 1 U nivers -acetaminop 06-28 tablet by it jyothi (NORCO) 16:48: 00:00 mouth [place] 10-325 mg 08 :00 every 6 Medical tablet (six) Branch hours as needed for Pain (scale 4-6). HYDROcodone 0 2020- No 1{tbl} Take 1 U nivers -acetaminop 1-05 01-05 tablet by it y of hen ([employer]) 16:48: 00:00 mouth [place] 10-325 mg 08 :00 every 6 Medical tablet (six) Branch hours as needed for Pain (scale 4-6). HYDROcodone 2019-06 Yes 1{tbl} Take 1 [facility] chase -acetaminop 2-01 tablet by ity of hen ([employer]) 20:18: mouth [place] 10-325 mg 53 every 6 Medical tablet (six) Branch hours as needed for Pain (scale 4-6). HYDROcodone 2019-06 Yes 1{tbl} Take 1 [facility] chase -acetaminop 2-01 tablet by ity of hen ([employer]) 20:18: mouth [place] 10-325 mg 53 every 6 Medical tablet (six) Branch hours as needed for Pain (scale 4-6). HYDROcodone 2019-06 Yes 1{tbl} Take 1 [facility] -acetaminop 2-01 tablet by ity of hen ([employer]) 20:18: mouth [place] 10-325 mg 53 every 6 Medical tablet (six) Branch hours as needed for Pain (scale 4-6). HYDROcodone 2019-06 Yes 1{tbl} Take 1 [facility] -acetaminop 2-01 tablet by ity of hen ([employer]) 20:18: mouth [place] 10-325 mg 53 every 6 Medical tablet (six) Branch hours as needed for Pain (scale 4-6). HYDROcodone 2019-06 Yes 1{tbl} Take 1 [facility] -acetaminop 2-01 tablet by ity of hen ([employer]) 20:18: mouth [place] 10-325 mg 53 every [...] (MULTIVITAM Branch IN-CALCIUM AND IRON ORAL) Biotin 2019-1 Yes 1{capsu Take 1 Univer s 10,000 [...] mg 16:07: mouth [place] tablet 10 daily. [facility] Branch ALPRAZOLAM 2019-06 Yes 1mg Take 1 mg Un chase (XANAX 1-19 by mouth ity of ORAL) 16:07: as needed. [address] lamoTRIgine 2019-06 Yes 150mg Take 150 U nivers (LAMICTAL) 1-19 mg by ity of 150 mg 16:07: mouth [place] tablet 10 daily. [facility] Branch ALPRAZOLAM 2019-06 Yes 1mg Take 1 mg Un [facility] (XANAX 1-19 by mouth ity of ORAL) 16:07: as needed. [address] lamoTRIgine 2019-06 Yes 150mg Take 150 U nivers (LAMICTAL) 1-19 mg by ity of 150 mg 16:07: mouth [place] tablet 10 daily. [facility] Branch lamoTRIgine 2019-06 Yes 150mg Take 150 U nivers (LAMICTAL) 1-19 mg by ity of 150 mg 16:07: mouth [place] tablet 10 daily. [facility] Branch lamoTRIgine 2019-06 Yes 150mg Take 150 U nivers (LAMICTAL) 1-19 mg by ity of 150 mg 16:07: mouth [place] tablet 10 daily. [facility] Branch lamoTRIgine 2019-06 Yes 150mg Take 150 U nivers (LAMICTAL) 1-19 mg by ity of 150 mg 16:07: mouth [place] tablet 10 daily. [facility] Branch lamoTRIgine 2019-06 Yes 150mg Take 150 U nivers (LAMICTAL) 1-19 mg by ity of 150 mg 16:07: mouth [place] tablet 10 daily. [facility] Branch lamoTRIgine 2019-06 Yes 150mg Take 150 U nivers (LAMICTAL) 1-19 mg by ity of 150 mg 16:07: mouth [place] tablet 10 daily. [facility] Branch lamoTRIgine 2019-06 Yes 150mg Take 150 U nivers (LAMICTAL) 1-19 mg by ity of 150 mg 16:07: mouth [place] tablet 10 daily. [facility] lamoTRIgine 2019-06 Yes 150mg Take 150 U nivers (LAMICTAL) 1-19 mg by ity of 150 mg 16:07: mouth [place] tablet 10 daily. [facility] lamoTRIgine 2019-06 Yes 150mg Take 150 U nivers (LAMICTAL) 1-19 mg by ity of 150 mg 16:07: mouth [place] tablet 10 daily. [facility] lamoTRIgine 2019-06 Yes 150mg Take 150 U nivers (LAMICTAL) 1-19 mg by ity of 150 mg 16:07: mouth [place] tablet 10 daily. [facility] lamoTRIgine 2019-06 Yes 150mg Take 150 U nivers (LAMICTAL) 1-19 mg by ity of 150 mg 16:07: mouth [place] tablet 10 daily. [facility] lamoTRIgine 2019-06 Yes 150mg Take 150 U nivers (LAMICTAL) 1-19 mg by ity of 150 mg 16:07: mouth [place] tablet 10 daily. [facility] lamoTRIgine 2019-06 Yes 150mg Take 150 U nivers (LAMICTAL) 1-19 mg by ity of 150 mg 16:07: mouth [place] tablet 10 daily. [facility] lamoTRIgine 2019-06 Yes 150mg Take 150 U nivers (LAMICTAL) 1-19 mg by ity of 150 mg 16:07: mouth [place] tablet 10 daily. [facility] ALPRAZOLAM 2019-06 Yes 1mg Take 1 mg [facility] (XANAX 1-19 by mouth ity of ORAL) 16:07: as needed. [address] lamoTRIgine 2019-06 Yes 150mg Take 150 U nivers (LAMICTAL) 1-19 mg by ity of 150 mg 16:07: mouth [place] tablet 10 daily. [facility] ALPRAZOLAM 2019-06 Yes 1mg Take 1 mg [facility] [place] (XANAX 1-19 by mouth ity of ORAL) 16:07: as needed. [address] lamoTRIgine 2019-06 Yes 150mg Take 150 U nivers (LAMICTAL) 1-19 mg by ity of 150 mg 16:07: mouth [place] tablet 10 daily. [facility] ALPRAZOLAM 2019-06 Yes 1mg Take 1 mg [facility] [place] (XANAX 1-19 by mouth ity of ORAL) 16:07: as needed. [address] lamoTRIgine 2019-06 Yes 150mg Take 150 U nivers (LAMICTAL) 1-19 mg by ity of 150 mg 10:07: mouth [place] tablet 10 daily. [facility] Branch lamoTRIgine 2019-06 Yes 150mg Take 150 U nivers (LAMICTAL) 1-19 mg by ity of 150 mg 10:07: mouth [place] tablet 10 daily. [facility] Branch lamoTRIgine 2019-06 Yes 150mg Take 150 U nivers (LAMICTAL) 1-19 mg by ity of 150 mg 10:07: mouth [place] tablet 10 daily. [facility] Branch lamoTRIgine 2019-06 Yes 150mg Take 150 U nivers (LAMICTAL) 1-19 mg by ity of 150 mg 10:07: mouth [place] tablet 10 daily. [facility] Branch lamoTRIgine 2019-06 Yes 150mg Take 150 U nivers (LAMICTAL) 1-19 mg by ity of 150 mg 10:07: mouth [place] tablet 10 daily. [facility] Branch lamoTRIgine 2019-06 Yes 150mg Take 150 U nivers (LAMICTAL) 1-19 mg by ity of 150 mg 10:07: mouth [place] tablet 10 daily. [facility] Branch lamoTRIgine 2019-06 Yes 150mg Take 150 U nivers (LAMICTAL) 1-19 mg by ity of 150 mg 10:07: mouth [place] tablet 10 daily. [facility] Branch lamoTRIgine 2019-06 Yes 150mg Take 150 U nivers (LAMICTAL) 1-19 mg by ity of 150 mg 10:07: mouth [place] tablet 10 daily. [facility] Branch lamoTRIgine 2019-06 Yes 150mg Take 150 U nivers (LAMICTAL) 1-19 mg by ity of 150 mg 10:07: mouth [place] tablet 10 daily. [facility] Branch lamoTRIgine 2019-06 Yes 150mg Take 150 U nivers (LAMICTAL) 1-19 mg by ity of 150 mg 10:07: mouth [place] tablet 10 daily. [facility] Branch lamoTRIgine 2019-06 Yes 150mg Take 150 U nivers (LAMICTAL) 1-19 mg by ity of 150 mg 10:07: mouth [place] tablet 10 daily. [facility] Branch lamoTRIgine 2019-06 Yes 150mg Take 150 U nivers (LAMICTAL) 1-19 mg by ity of 150 mg 10:07: mouth [place] tablet 10 daily. [facility] Branch lamoTRIgine 2019-06 Yes 150mg Take 150 U nivers (LAMICTAL) 1-19 mg by ity of 150 mg 10:07: mouth [place] tablet 10 daily. Medical Branch lamoTRIgine 2019-06 Yes 150mg Take 150 U nivers (LAMICTAL) 1-19 mg by ity of 150 mg 10:07: mouth [place] tablet 10 daily. [facility] Branch lamoTRIgine 2019-06 Yes 150mg Take 150 U nivers (LAMICTAL) 1-19 mg by ity of 150 mg 10:07: mouth [place] tablet 10 daily. [facility] Branch lamoTRIgine 2019-06 Yes 150mg Take 150 U nivers (LAMICTAL) 1-19 mg by ity of 150 mg 10:07: mouth [place] tablet 10 daily. [facility] Branch lamoTRIgine 2019-06 Yes 150mg Take 150 U nivers (LAMICTAL) 1-19 mg by ity of 150 mg 10:07: mouth [place] tablet 10 daily. [facility] Branch lamoTRIgine 2019-06 Yes 150mg Take 150 U nivers (LAMICTAL) 1-19 mg by ity of 150 mg 10:07: mouth [place] tablet 10 daily. [facility] Branch lamoTRIgine 2019-06 Yes 150mg Take 150 U nivers (LAMICTAL) 1-19 mg by ity of 150 mg 10:07: mouth [place] tablet 10 daily. [facility] Branch lamoTRIgine 2019-06 Yes 150mg Take 150 U nivers (LAMICTAL) 1-19 mg by ity of 150 mg 10:07: mouth [place] tablet 10 daily. [facility] Branch lamoTRIgine 2019-06 Yes 150mg Take 150 U nivers (LAMICTAL) 1-19 mg by ity of 150 mg 10:07: mouth [place] tablet 10 daily. [facility] Branch lamoTRIgine 2019-06 Yes 150mg Take 150 U nivers (LAMICTAL) 1-19 mg by ity of 150 mg 10:07: mouth [place] tablet 10 daily. [facility] Branch lamoTRIgine 2019-06 Yes 150mg Take 150 U nivers (LAMICTAL) 1-19 mg by ity of 150 mg 10:07: mouth [place] tablet 10 daily. [facility] Branch lamoTRIgine 2019-06 Yes 150mg Take 150 U nivers (LAMICTAL) 1-19 mg by ity of 150 mg 10:07: mouth [place] tablet 10 daily. [facility] Branch lamoTRIgine 2019-06 Yes 150mg Take 150 U nivers (LAMICTAL) 1-19 mg by ity of 150 mg 10:07: mouth [place] tablet 10 daily. Medical Branch DULoxetine 2019- Yes 1{capsu Take 1 [facility] 30 mg 1-13 le} capsule by ity of capsule 00:00: mouth [place] 00 daily. Medical Branch DULoxetine 2019-06 Yes 1{capsu Take 1 [facility] [place] 30 mg 1-13 le} capsule by ity of capsule 00:00: mouth [place] 00 daily. Medical Branch DULoxetine 2019- Yes 1{capsu Take 1 [facility] 30 mg 1-13 le} capsule by ity of capsule 00:00: mouth [place] 00 daily. Medical Branch DULoxetine 2019-06 Yes 1{capsu Take 1 [facility] [place] 30 mg 1-13 le} capsule by ity of capsule 00:00: mouth [place] 00 daily. Medical Branch DULoxetine 2019-06 Yes 1{capsu Take 1 [facility] 30 mg 1-13 le} capsule by ity of capsule 00:00: mouth [place] 00 daily. Medical Branch DULoxetine 2019- Yes 30mg Take 1 Unive rs 30 mg 1-13 capsule by ity of capsule 00:00: mouth in [place] 00 the Medical morning. Branch DULoxetine 2019-06 Yes 30mg Take 1 [facility] rs 30 mg 1-13 capsule by ity of capsule 00:00: mouth in [place] 00 the Medical morning. Branch DULoxetine 2019-06 Yes 30mg Take 1 [facility]ive rs 30 mg 1-13 capsule by ity of capsule 00:00: mouth in [place] 00 the Medical morning. Branch DULoxetine 2019- Yes 30mg Take 1 [facility] rs 30 mg 1-13 capsule by ity of capsule 00:00: mouth in [place] 00 the Medical morning. Branch DULoxetine 2019- Yes 1{capsu Take 1 [facility] 30 mg 1-13 le} capsule by ity of capsule 00:00: mouth [place] 00 daily. Medical Branch DULoxetine 2019- Yes 30mg Take 1 Unive rs 30 mg 1-13 capsule by ity of capsule 00:00: mouth in [place] 00 the Medical morning. Branch ALPRAZolam 2019- Yes 1{tbl} Take 1 Uni vers 0.5 mg 1-13 tablet by ity of tablet 00:00: mouth as [place] 00 needed. Medical Branch DULoxetine 2019- Yes 30mg Take 1 Unive rs 30 mg 1-13 capsule by ity of capsule 00:00: mouth in [place] 00 the Medical morning. Branch DULoxetine 2020- Yes 30mg Take 1 Unive rs 30 mg 1-13 capsule by ity of capsule 00:00: mouth in [place] the Medical morning. Branch DULoxetine 2020- Yes 1{capsu Take 1 [facility] 30 mg 1-13 le} capsule by ity of capsule 00:00: mouth [place] 00 daily. Medical Branch DULoxetine 2019- Yes 30mg Take 1 Unive rs 30 mg 1-13 capsule by ity of capsule 00:00: mouth in [place] 00 the Medical morning. Branch ALPRAZolam 2019- Yes 1{tbl} Take 1 [facility] vers 0.5 mg 1-13 tablet by ity of tablet 00:00: mouth as [place] 00 needed. Medical Branch DULoxetine 2019- Yes 30mg Take 1 Unive rs 30 mg 1-13 capsule by ity of capsule 00:00: mouth in [place] the Medical morning. Branch DULoxetine 2020- Yes 30mg Take 1 Unive rs 30 mg 1-13 capsule by ity of capsule 00:00: mouth in [place] 00 the Medical morning. Branch DULoxetine 2019- Yes 30mg Take 1 Unive rs 30 mg 1-13 capsule by ity of capsule 00:00: mouth in [place] 00 the Medical morning. Branch DULoxetine 2020- Yes 1{capsu Take 1 [facility] [place] 30 mg 1-13 le} capsule by ity of capsule 00:00: mouth [place] 00 daily. Medical Branch DULoxetine 2019- Yes 30mg Take 1 Unive rs 30 mg 1-13 capsule by ity of capsule 00:00: mouth in [place] 00 the Medical morning. Branch DULoxetine 2020- Yes 30mg Take 1 Unive rs 30 mg 1-13 capsule by ity of capsule 00:00: mouth in [place] 00 the Medical morning. Branch ALPRAZolam 2020- Yes 1{tbl} Take 1 [facility] vers 0.5 mg 1-13 tablet by ity of tablet 00:00: mouth as [place] 00 needed. Medical Branch DULoxetine 2020- Yes 1{capsu Take 1 [facility] [place] 30 mg 1-13 le} capsule by ity of capsule 00:00: mouth [place] 00 daily. Medical Branch ALPRAZolam 2020- Yes 1{tbl} Take 1 Uni vers 0.5 [...] 00:00: mouth [place] 00 daily. Medical Branch DULoxetine 2019-06 Yes 1{capsu Take 1 [facility] [place] 30 mg 1-13 le} capsule by ity of capsule 00:00: mouth [place] 00 daily. Medical Branch DULoxetine 2019- Yes 1{capsu Take 1 [facility] [place] 30 mg 1-13 le} capsule by ity of capsule 00:00: mouth 00 daily. Medical Branch ALPRAZolam 2019-06- No 1{tbl} Take 1 [facility] [place] 0.5 mg 1-13 06-15 tablet by ity of tablet 00:00: 00:00 mouth 2 [place] 00 :00 (two) Medical times Branch daily. ALPRAZolam 2019-06- No 1{tbl} Take 1 [facility] [place] 0.5 mg 1-13 06-15 tablet by ity of tablet 00:00: 00:00 mouth 2 [place] 00 :00 (two) Medical times Branch daily. ALPRAZolam 2019-06- No 1{tbl} Take 1 [facility] 0.5 mg 1-13 06-15 tablet by ity of tablet 00:00: 00:00 mouth 2 [place] 00 :00 (two) Medical times Branch daily. busPIRone 2019-06 Yes 1{tbl} Take 1 Univ ers 10 mg 0-28 tablet by ity of tablet 00:00: mouth 2 (two) Medical times Branch daily. busPIRone 2019-06 Yes 1{tbl} Take 1 Univ ers 10 mg 0-28 tablet by ity of tablet 00:00: mouth 2 00 (two) Medical times Branch daily. busPIRone 2019-06 Yes 1{tbl} Take 1 Univ ers 10 mg 0-28 tablet by ity of tablet 00:00: mouth 2 00 (two) Medical times Branch daily. busPIRone 2019-06 Yes 1{tbl} Take 1 Univ ers 10 mg 0-28 tablet by ity of tablet 00:00: mouth 2 (two) Medical times Branch daily. busPIRone 2019-06 Yes 1{tbl} Take 1 Univ ers 10 mg 0-28 tablet by ity of tablet 00:00: mouth 2 (two) Medical times Branch daily. busPIRone 2019- Yes 10mg Take 1 Univer s 10 mg 0-28 tablet by ity of tablet 00:00: mouth in [place] Medical morning Branch and 1 tablet in the evening. busPIRone 2019- Yes 10mg Take 1 Univer s 10 mg 0-28 tablet by ity of tablet 00:00: mouth in 00 the Medical morning Branch and 1 tablet in the evening. busPIRone 2020-1 Yes 10mg Take 1 Univer s 10 mg 0-28 tablet by ity of tablet 00:00: mouth in [place] 00 the Medical morning Branch and 1 tablet in the evening. busPIRone 2020-1 Yes 10mg Take 1 Univer s 10 mg 0-28 tablet by ity of tablet 00:00: mouth in [place] 00 the Medical morning Branch and 1 tablet in the evening. busPIRone 2020-1 Yes 1{tbl} Take 1 Univ ers 10 mg 0-28 tablet by ity of tablet 00:00: mouth 2 [place] (two) Medical times Branch daily. busPIRone 2020-1 Yes 10mg Take 1 Univer s 10 mg 0-28 tablet by ity of tablet 00:00: mouth in [place] 00 the Medical morning Branch and 1 tablet in the evening. busPIRone 2020-1 Yes 10mg Take 1 Univer s 10 mg 0-28 tablet by ity of tablet 00:00: mouth in [place] 00 the Medical morning Branch and 1 tablet in the evening. busPIRone 2020-1 Yes 10mg Take 1 Univer s 10 mg 0-28 tablet by ity of tablet 00:00: mouth in [place] 00 the Medical morning Branch and 1 tablet in the evening. busPIRone 2020-1 Yes 1{tbl} Take 1 Univ ers 10 mg 0-28 tablet by ity of tablet 00:00: mouth 2 [place] (two) Medical times Branch daily. busPIRone 2020-1 Yes 10mg Take 1 Univer s 10 mg 0-28 tablet by ity of tablet 00:00: mouth in [place] 00 the Medical morning Branch and 1 tablet in the evening. busPIRone 2020-1 Yes 10mg Take 1 Univer s 10 mg 0-28 tablet by ity of tablet 00:00: mouth in [place] 00 the Medical morning Branch and 1 tablet in the evening. busPIRone 2020-1 Yes 10mg Take 1 Univer s 10 mg 0-28 tablet by ity of tablet 00:00: mouth in [place] 00 the Medical morning Branch and 1 tablet in the evening. busPIRone 2020-1 Yes 1{tbl} Take 1 Univ ers 10 mg 0-28 tablet by ity of tablet 00:00: mouth 2 [place] (two) Medical times Branch daily. busPIRone 2020-1 Yes 10mg Take 1 [facility] 10 mg 0-28 tablet by [facility]y of tablet 00:00: mouth in [place] 00 the Medical morning Branch and 1 tablet in the evening. busPIRone 2020-1 Yes 10mg Take 1 [facility] 10 mg 0-28 tablet by ity of tablet 00:00: mouth in [place] 00 the Medical morning Branch and 1 tablet in the evening. busPIRone 2020-1 Yes 10mg Take 1 [facility] 10 mg 0-28 tablet by ity of tablet 00:00: mouth in [place] 00 the Medical morning Branch and 1 tablet in the evening. busPIRone 2020-1 Yes 1{tbl} Take 1 Univ [...] mouth (two) Medical times Branch daily. busPIRone 2020-1 Yes 1{tbl} Take 1 [facility] ers 10 mg 0-28 tablet by ity of tablet 00:00: mouth (two) Medical times Branch daily. busPIRone 2020-1 Yes 1{tbl} Take 1 [facility] ers 10 mg 0-28 tablet by ity of tablet 00:00: mouth (two) Medical times Branch daily. busPIRone 2020-1 Yes 1{tbl} Take 1 [facility] ers 10 mg 0-28 tablet by ity of tablet 00:00: mouth (two) Medical times Branch daily. busPIRone 2020-1 [...] needed for Itching or Allergies. BANOPHEN 25 2019-06- No 1{capsu Take 1 [facility] mg capsule 0-12 06-15 le} capsule by it y of 00:00: 00:00 mouth [place] 00 :00 every 4 Medical (four) Branch hours as needed for Itching or Allergies. BANOPHEN 25 2019-06- No 1{capsu Take 1 [facility] mg capsule 0-12 06-15 le} capsule by it y of 00:00: 00:00 mouth [place] 00 :00 every 4 Medical (four) Branch hours as needed for Itching or Allergies. BANOPHEN 2019-06- No 1{capsu Take 1 [facility] mg capsule 0-12 06-15 le} capsule by it y of 00:00: 00:00 mouth [place] 00 :00 every 4 Medical (four) Branch hours as needed for Itching or Allergies. famotidine 2019-06- No 20mg Take 20 mg [facility] 20 mg 05-24 by mouth ity of tablet 00:00: 00:00 daily. [place] 00 :00 Medical Branch famotidine 2019-06- No 20mg Take 20 mg [facility] 20 mg 05-24 by mouth ity of tablet 00:00: 00:00 daily. [place] 00 :00 Medical Branch traZODone 2020-1 Yes 1{tbl} Take 1 [facility] 100 mg 0-05 tablet by ity of tablet 00:00: mouth at [place] bedtime. Medical Branch traZODone 2020-1 Yes 1{tbl} Take 1 [facility] 100 mg 0-05 tablet by ity of tablet 00:00: mouth at [place] bedtime. Medical Branch traZODone 2020-1 Yes 1{tbl} Take 1 [facility] 100 mg 0-05 tablet by ity of tablet 00:00: mouth at [place] bedtime. Medical Branch traZODone 2020- Yes 1{tbl} Take 1 [facility] 100 mg 0-05 tablet by ity of tablet 00:00: mouth at [place] bedtime. Medical Branch traZODone 2020-1 Yes 1{tbl} Take 1 [facility] 100 mg 0-05 tablet by ity of tablet 00:00: mouth at [place] bedtime. Medical Branch traZODone 2020-1 Yes 1{tbl} Take 1 [facility] 100 mg 0-05 tablet by ity of tablet 00:00: mouth at [place] [address] bedtime. Medical Branch traZODone 2020- Yes 1{tbl} Take 1 [facility] 100 mg 0-05 tablet by ity of tablet 00:00: mouth at [place] [address] bedtime. Medical Branch traZODone 2020-1 Yes 1{tbl} Take 1 [facility] 100 mg 0-05 tablet by ity of tablet 00:00: mouth at [place] [address] bedtime. Medical Branch traZODone 2020-1 Yes 1{tbl} Take 1 [facility] 100 mg 0-05 tablet by ity of tablet 00:00: mouth at [place] [address] bedtime. Medical Branch traZODone 2020-1 Yes 1{tbl} Take 1 [facility] 100 mg 0-05 tablet by ity of tablet 00:00: mouth at [place] bedtime. Medical Branch traZODone 2020-1 Yes 1{tbl} Take 1 [facility] 100 mg 0-05 tablet by ity of tablet 00:00: mouth at [place] [address] bedtime. Medical Branch traZODone 2020-1 Yes 1{tbl} Take 1 [facility] 100 mg 0-05 tablet by ity of tablet 00:00: mouth at [place] 00 bedtime. Medical Branch traZODone 2020-1 Yes 1{tbl} Take 1 [facility] 100 mg 0-05 tablet by ity of tablet 00:00: mouth at [place] bedtime. Medical Branch traZODone 2020- Yes 1{tbl} Take 1 [facility] 100 mg 0-05 tablet by ity of tablet 00:00: mouth at [place] bedtime. Medical Branch traZODone 2020- Yes 1{tbl} Take 1 [facility] 100 mg 0-05 tablet by ity of tablet 00:00: mouth at [place] bedtime. Medical Branch traZODone 2020- Yes 1{tbl} Take 1 [facility] 100 mg 0-05 tablet by ity of tablet 00:00: mouth at [place] bedtime. Medical Branch traZODone 2020- Yes 1{tbl} Take 1 [facility] 100 mg 0-05 tablet by ity of tablet 00:00: mouth at [place] bedtime. Medical Branch traZODone 2019- Yes 1{tbl} Take 1 [facility] 100 mg 0-05 tablet by ity of tablet 00:00: mouth at [place] bedtime. Medical Branch traZODone 2019- Yes 1{tbl} Take 1 [facility] 100 mg 0-05 tablet by ity of tablet 00:00: mouth at [place] [address] bedtime. Medical Branch traZODone 2020- Yes 1{tbl} Take 1 [facility] 100 mg 0-05 tablet by ity of tablet 00:00: mouth at [place] bedtime. Medical Branch traZODone 2020-1 Yes 1{tbl} Take 1 [facility] 100 mg 0-05 tablet by ity of tablet 00:00: mouth at [place] bedtime. Medical Branch traZODone 2020-1 Yes 1{tbl} Take 1 [facility] 100 mg 0-05 tablet by ity of tablet 00:00: mouth at [place] bedtime. Medical Branch traZODone 2020-1 Yes 1{tbl} Take 1 [facility] 100 mg 0-05 tablet by ity of tablet 00:00: mouth at [place] bedtime. Medical Branch traZODone 2020-1 Yes 1{tbl} Take 1 [facility] 100 mg 0-05 tablet by ity of tablet 00:00: mouth at [place] [address] bedtime. Medical Branch traZODone 2020-1 Yes 1{tbl} Take 1 [facility] 100 mg 0-05 tablet by ity of tablet 00:00: mouth at [place] 00 bedtime. Medical Branch traZODone 2019-06 Yes 1{tbl} Take 1 [facility] 100 mg 0-05 tablet by ity of tablet 00:00: mouth at [place] 00 bedtime. Medical Branch traZODone 2019-06 Yes 1{tbl} Take 1 [facility] 100 mg 0-05 tablet by ity of tablet 00:00: mouth at [place] 00 bedtime. Medical Branch traZODone 2019-06 Yes 1{tbl} Take 1 [facility] 100 mg 0-05 tablet by ity of tablet 00:00: mouth at [place] 00 bedtime. Medical Branch traZODone 2019-06 Yes 1{tbl} Take 1 [facility] 100 mg 0-05 tablet by ity of tablet 00:00: mouth at [place] 00 bedtime. Medical Branch traZODone 2019-06 Yes 1{tbl} Take 1 [facility] 100 mg 0-05 tablet by ity of tablet 00:00: mouth at [place] 00 bedtime. Medical Branch traZODone 2019-06 Yes 1{tbl} Take 1 [facility] 100 mg 0-05 tablet by ity of tablet 00:00: mouth at [place] 00 bedtime. Medical Branch traZODone 2019-06 Yes 1{tbl} Take 1 [facility] 100 mg 0-05 tablet by ity of tablet 00:00: mouth at [place] 00 bedtime. Medical Branch traZODone 2019-06- No 1{tbl} Take 1 [facility] vers 100 mg 0-05 06-15 tablet by ity of tablet 00:00: 00:00 mouth at [place] 00 :00 bedtime. Medical Branch traZODone 2019-06- No 1{tbl} Take 1 [facility] vers 100 mg 0-05 06-15 tablet by ity of tablet 00:00: 00:00 mouth at [place] 00 :00 bedtime. Medical Branch traZODone 2019-06- No 1{tbl} Take 1 [facility] vers 100 mg 0-05 06-15 tablet by ity of tablet 00:00: 00:00 mouth at [place] 00 :00 bedtime. Medical Branch fluticasone Yes 50{spra Use 50 U nivers [...] nasal (two) Branch spray times daily. fluticasone 0 Yes 50{spra Use 50 U nivers propionate [...] nasal (two) Branch spray times daily. fluticasone 2022- No 50{spra Use 50 [facility] propionate 9 06-15 y} Sprays in ity of 50 00:00: 00:00 each [place] mcg/actuati 00 :00 nostril 2 Med ical on nasal (two) Branch spray times daily. fluticasone 2022- No 50{spra Use 50 [facility] propionate 927 06-15 y} Sprays in ity of 50 00:00: 00:00 each [place] mcg/actuati 00 :00 nostril 2 Med ical on nasal (two) Branch spray times daily. fluticasone 2019-2022- No 50{spra Use 50 [facility] propionate 927 06-15 y} Sprays in ity of 50 00:00: 00:00 each [place] mcg/actuati 00 :00 nostril 2 Med ical on nasal (two) Branch spray times daily. ibuprofen 2018-0 Yes 600mg Take 1 [facility] 600 mg 6-26 tablet by ity of tablet 00:00: mouth [place] 00 every 6 Medical (six) Branch hours as needed for Pain (scale 1-3), Pain (scale 4-6) or Pain (scale 1-3) with oral narcotics. ibuprofen 20180 Yes 600mg Take 1 [facility] 600 [...] Pain (scale 1-3) with oral narcotics. lamoTRIgine 2017-0 Yes 150mg Take 150 U nivers (LAMICTAL) 6-12 mg by ity of 150 mg 16:22: mouth [place] tablet 38 daily. Medical Branch ALPRAZOLAM 2017-0 Yes 1mg Take 1 mg [facility] (XANAX 6-12 by mouth ity of ORAL) 16:22: as needed. [place] [address] Medical Branch lamoTRIgine 2018-0 Yes 150mg Take 150 U nivers (LAMICTAL) 6-12 mg by ity of 150 mg 16:22: mouth [place] tablet 38 daily. Medical Branch ALPRAZOLAM Yes 1mg Take 1 mg [facility] (XANAX 6-12 by mouth ity of ORAL) 16:22: as needed. [place] 38 Medical Branch Polyethylen Yes Take 1 [facility] ers [...] Branch hours as needed for Alternate with [place] for pain scale 4-6. docusate Yes 100mg Take 1 [facility] 100 mg 5-06 capsule by ity of capsule 00:00: mouth 2 [place] 00 (two) Medical times Branch daily as needed for Constipati on. ibuprofen Yes 600mg Take 1 [facility] 600 mg 5-06 tablet by ity of tablet 00:00: mouth [place] 00 every 6 Medical (six) Branch hours as needed for Alternate with [place] for pain scale 4-6. docusate 2020- No 100mg Take 1 [facility] 100 mg 5-06 11-19 capsule by ity of capsule 00:00: 00:00 mouth 2 [place] 00 :00 (two) Medical times Branch daily as needed for Constipati on. ibuprofen 2019- No 600mg Take 1 [facility] ers 600 mg 5-06 11-19 tablet by ity of tablet 00:00: 00:00 mouth [place] 00 :00 every 6 Medical (six) Branch hours as needed for Alternate with [place] for pain scale 4-6. docusate 2020- No 100mg Take 1 [facility] 100 mg 10-27 capsule by ity of capsule 00:00: 00:00 mouth 2 [place] 00 :00 (two) Medical times Branch daily as needed for Constipati on. ibuprofen 2019- No 600mg Take 1 [facility] ers 600 mg 10-27 tablet by ity of tablet 00:00: 00:00 mouth [place] 00 :00 every 6 Medical (six) Branch hours as needed for Alternate with [place] for pain scale 4-6. docusate 2020- No 100mg Take 1 [facility] 100 mg 10-27 capsule by ity of capsule 00:00: 00:00 mouth 2 [place] 00 :00 (two) Medical times Branch daily as needed for Constipati on. ibuprofen 2019- No 600mg Take 1 [facility] ers 600 mg 10-27 tablet by ity of tablet 00:00: 00:00 mouth [place] 00 :00 every 6 Medical (six) Branch hours as needed for Alternate with [place] for pain scale 4-6. citalopram Yes 40mg [...] 00 (two) Medical times Branch daily. hydrOXYzine Yes 25mg Take 1 [facility] ers 25 mg 1-26 tablet by ity of tablet 00:00: mouth [place] 00 every 6 Medical (six) Branch hours as needed for Anxiety. traZODONE 2018-0 Yes 50mg Take 1 [facility] 50 mg 1-26 tablet by ity of tablet 00:00: mouth at [place] 00 bedtime as Medical needed for Branch Insomnia. melatonin 3 2018-0 Yes 3mg Take 1 [facility] ers mg tablet 1-26 tablet by ity o f 00:00: mouth at [place] 00 bedtime. Medical Branch clonazePAM 2018-0 Yes .25mg Take 0.5 [facility] chase 0.5 mg 1-26 tablets by ity of tablet 00:00: mouth 2 [place] 00 (two) Medical times Branch daily. hydrOXYzine 2018-0 Yes 25mg Take 1 [facility] ers 25 mg 1-26 tablet by ity of tablet 00:00: mouth [place] 00 every 6 Medical (six) Branch hours as needed for Anxiety. traZODONE 2018-0 Yes 50mg Take 1 [facility] 50 mg 1-26 tablet by ity of tablet 00:00: mouth at [place] 00 bedtime as Medical needed for Branch Insomnia. melatonin 3 2017-0 Yes 3mg Take 1 [facility] ers mg tablet 1-26 tablet by ity o f 00:00: mouth at [place] 00 bedtime. Medical Branch clonazePAM 2017-0 2020- No .25mg Take 0.5 U nivers 0.5 mg 1-26 11-19 tablets by ity of tablet 00:00: 00:00 mouth 2 [place] 00 :00 (two) Medical times Branch daily. hydrOXYzine 2017-0 2020- No 25mg Take 1 Uni vers [...] 3mg Take 1 Uni vers mg tablet 1-26 11-19 tablet by ity of 00:00: 00:00 mouth at [place] 00 :00 bedtime. Medical Branch clonazePAM 2018-0 2020- No .25mg Take 0.5 U nivers 0.5 mg 1-26 11-19 tablets by ity of tablet 00:00: 00:00 mouth 2 [place] 00 :00 (two) Medical times Branch daily. hydrOXYzine 2020- No 25mg Take 1 [facility] vers 25 mg 07-19-19 tablet by ity of tablet [...] [place] 00 :00 bedtime. Medical Branch clonazePAM 2019- No .25mg Take 0.5 U nivers 0.5 [...] [place] 00 :00 bedtime. Medical Branch omeprazole 2016- Yes 1{capsu Take 1 [facility] 40 mg 4-15 le} capsule by ity of capsule 00:00: mouth [place] 00 daily. Medical Branch omeprazole 2015- Yes 1{capsu Take 1 [facility] 40 mg 4-15 le} capsule by ity of capsule 00:00: mouth [place] 00 daily. Medical Branch omeprazole 2016- Yes 1{capsu Take 1 [facility] chase 40 [...] 00 daily. Medical Branch omeprazole 2016-0 Yes 40mg Take 1 [facility] 40 mg 4-15 capsule by ity of capsule 00:00: mouth in [place] 00 the Medical morning. Branch omeprazole 2016-0 Yes 40mg Take 1 [facility] 40 mg 4-15 capsule by ity of capsule 00:00: mouth in [place] 00 the Medical morning. Branch omeprazole 2016-0 Yes 40mg Take 1 [facility] 40 mg 4-15 capsule by ity of capsule 00:00: mouth in [place] the Medical morning. Branch omeprazole 2016-0 Yes 1{capsu Take 1 [facility] 40 mg 4-15 le} capsule by ity of capsule 00:00: mouth [place] 00 daily. Medical Branch omeprazole 2016-0 Yes 40mg Take 1 [facility] 40 mg 4-15 capsule by ity of capsule 00:00: mouth in [place] 00 the Medical morning. Branch omeprazole 2016-0 Yes 40mg Take 1 [facility] 40 mg 4-15 capsule by ity of capsule 00:00: mouth in [place] the Medical morning. Branch omeprazole 2016-0 Yes 40mg Take 1 [facility] 40 mg 4-15 capsule by ity of capsule 00:00: mouth in [place] 00 the Medical morning. Branch omeprazole 2016-0 Yes 1{capsu Take 1 [facility] chase 40 mg 4-15 le} capsule by ity of capsule 00:00: mouth [place] 00 daily. Medical Branch omeprazole 2016-0 Yes 40mg Take 1 [facility] 40 mg 4-15 capsule by ity of capsule 00:00: mouth in [place] 00 the Medical morning. Branch omeprazole 2016-0 Yes 40mg Take 1 [facility] 40 mg 4-15 capsule by ity of capsule 00:00: mouth in [place] 00 the Medical morning. Branch omeprazole 2016-0 Yes 40mg Take 1 [facility] 40 mg 4-15 capsule by ity of capsule 00:00: mouth in [place] 00 the Medical morning. Branch omeprazole 2016-0 Yes 40mg Take 1 [facility] 40 mg 4-15 capsule by ity of capsule 00:00: mouth in [place] 00 the Medical morning. Branch omeprazole 2016-0 Yes 1{capsu Take 1 [facility] chase 40 mg 4-15 le} capsule by ity of capsule 00:00: mouth [place] 00 daily. Medical Branch omeprazole 2016-0 Yes 40mg Take 1 [facility] 40 mg 4-15 capsule by ity of capsule 00:00: mouth in [place] 00 the Medical morning. Branch omeprazole 2016-0 Yes 40mg Take 1 [facility] 40 mg 4-15 capsule by ity of capsule 00:00: mouth in [place] 00 the Medical morning. Branch omeprazole 2016-0 Yes 40mg Take 1 [facility] 40 mg 4-15 capsule by ity of capsule 00:00: mouth in [place] 00 the Medical morning. Branch omeprazole 2016-0 Yes 1{capsu Take 1 [...] le} HCl 30 MG Immunizations Ordered Filled Date Status Comments Source Immunization Name Immunization Name Prevnar 20 (PCV20) Prevnar 20 (PCV20) 2022-02-19 Completed [facility] - 13:34:00 [facility] Prevnar 20 (PCV20) Prevnar 20 (PCV20) 2022-02-19 Completed [facility] - 13:34:00 [facility] SARS-COV-2 COVID-19 2020-10-03 Completed [facility] rs[facility] of PFIZER VACCINE 00:00:00 [facility] SARS-COV-2 COVID-19 2020-10-03 Completed Unive rsity of PFIZER VACCINE 00:00:00 [facility] SARS-COV-2 COVID-19 2020-10-03 Completed Unive rsity of PFIZER VACCINE 00:00:00 [facility] SARS-COV-2 COVID-19 2020-10-03 Completed Unive rsity of PFIZER VACCINE 00:00:00 [facility] SARS-COV-2 COVID-19 2020-10-03 Completed Unive rsity of PFIZER VACCINE 00:00:00 [facility] Branch SARS-COV-2 COVID-19 2020-10-03 Completed Unive rsity of PFIZER VACCINE 00:00:00 [facility] SARS-COV-2 COVID-19 2020-10-03 Completed Unive rsity of PFIZER VACCINE 00:00:00 [facility] Branch SARS-COV-2 COVID-19 2020-10-03 Completed Unive rsity of PFIZER VACCINE 00:00:00 [facility] Branch SARS-COV-2 COVID-19 2020-10-03 Completed Unive rsity of PFIZER VACCINE 00:00:00 [facility] Branch SARS-COV-2 COVID-19 2020-10-03 Completed Unive rsity of PFIZER VACCINE 00:00:00 [facility] Branch SARS-COV-2 COVID-19 2020-10-03 Completed Unive rsity of PFIZER VACCINE 00:00:00 [facility] Branch SARS-COV-2 COVID-19 2020-10-03 Completed Unive rsity of PFIZER VACCINE 00:00:00 [facility] Branch SARS-COV-2 COVID-19 2020-10-03 Completed Unive rsity of PFIZER VACCINE 00:00:00 [facility] Branch SARS-COV-2 COVID-19 2020-10-03 Completed Unive rsity of PFIZER VACCINE 00:00:00 [facility] SARS-COV-2 COVID-19 2020-10-03 Completed Unive rsity of PFIZER VACCINE 00:00:00 [facility] Branch SARS-COV-2 COVID-19 2020-10-03 Completed Unive rsity of PFIZER VACCINE 00:00:00 [facility] Branch SARS-COV-2 COVID-19 2020-10-03 Completed Unive rsity of PFIZER VACCINE 00:00:00 [facility] Branch SARS-COV-2 COVID-19 2020-10-03 Completed Unive rsity of PFIZER VACCINE 00:00:00 [facility] SARS-COV-2 COVID-19 2020-10-03 Completed Unive rsity of PFIZER VACCINE 00:00:00 [facility] SARS-COV-2 COVID-19 2020-10-03 Completed Unive rsity of PFIZER VACCINE 00:00:00 [facility] Branch SARS-COV-2 COVID-19 2020-10-03 Completed Unive rsity of PFIZER VACCINE 00:00:00 [facility] Branch SARS-COV-2 COVID-19 2020-10-03 Completed Unive rsity of PFIZER VACCINE 00:00:00 [facility] Branch SARS-COV-2 COVID-19 2020-10-03 Completed Unive rsity of PFIZER VACCINE 00:00:00 [facility] Branch SARS-COV-2 COVID-19 2020-09-12 Completed Unive rsity of PFIZER VACCINE 00:00:00 [facility] Branch SARS-COV-2 COVID-19 2020-09-12 Completed Unive rsity of PFIZER VACCINE 00:00:00 [facility] Branch SARS-COV-2 COVID-19 2020-09-12 Completed Unive rsity of PFIZER VACCINE 00:00:00 [facility] Branch SARS-COV-2 COVID-19 2020-09-12 Completed Unive rsity of PFIZER VACCINE 00:00:00 [facility] Branch SARS-COV-2 COVID-19 2020-09-12 Completed Unive rsity of PFIZER VACCINE 00:00:00 [facility] Branch SARS-COV-2 COVID-19 2020-09-12 Completed Unive rsity of PFIZER VACCINE 00:00:00 [facility] Branch SARS-COV-2 COVID-19 2020-09-12 Completed Unive rsity of PFIZER VACCINE 00:00:00 [facility] Branch SARS-COV-2 COVID-19 2020-09-12 Completed Unive rsity of PFIZER VACCINE 00:00:00 [facility] Branch SARS-COV-2 COVID-19 2020-09-12 Completed Unive rsity of PFIZER VACCINE 00:00:00 [facility] Branch SARS-COV-2 COVID-19 2020-09-12 Completed Unive rsity of PFIZER VACCINE 00:00:00 [facility] Branch SARS-COV-2 COVID-19 2020-09-12 Completed Unive rsity of PFIZER VACCINE 00:00:00 [facility] Branch SARS-COV-2 COVID-19 2020-09-12 Completed Unive rsity of PFIZER VACCINE 00:00:00 [facility] SARS-COV-2 COVID-19 2020-09-12 Completed Unive rsity of PFIZER VACCINE 00:00:00 [facility] SARS-COV-2 COVID-19 2020-09-12 Completed Unive rsity of PFIZER VACCINE 00:00:00 [facility] SARS-COV-2 COVID-19 2020-09-12 Completed Unive rsity of PFIZER VACCINE 00:00:00 [facility] SARS-COV-2 COVID-19 2020-09-12 Completed Unive rsity of PFIZER VACCINE 00:00:00 [facility] SARS-COV-2 COVID-19 2020-09-12 Completed Unive rsity of PFIZER VACCINE 00:00:00 [facility] SARS-COV-2 COVID-19 2020-09-12 Completed Unive rsity of PFIZER VACCINE 00:00:00 [facility] SARS-COV-2 COVID-19 2020-09-12 Completed Unive rsity of PFIZER VACCINE 00:00:00 [facility] SARS-COV-2 COVID-19 2020-09-12 Completed Unive rsity of PFIZER VACCINE 00:00:00 [facility] SARS-COV-2 COVID-19 2020-09-12 Completed Unive rsity of PFIZER VACCINE 00:00:00 [facility] SARS-COV-2 COVID-19 2020-09-12 Completed Unive rsity of PFIZER VACCINE 00:00:00 [facility] SARS-COV-2 COVID-19 2020-09-12 Completed Unive rsity of PFIZER VACCINE 00:00:00 [facility] SARS-COV-2 COVID-19 2020-09-12 Completed Unive rsity of PFIZER VACCINE 00:00:00 [facility] Influenza Virus 2010-08-27 Completed Universit y of Vaccine 00:00:00 [facility] Influenza Virus 2010-08-27 Completed Universit y of Vaccine 00:00:00 [facility] Influenza Virus 2010-08-27 Completed Universit y of Vaccine 00:00:00 [facility] Influenza Virus 2010-08-27 Completed Universit y of Vaccine 00:00:00 [facility] Influenza Virus 2010-08-27 Completed Universit y of Vaccine 00:00:00 [facility] Influenza Virus 2010-08-27 Completed Universit y of Vaccine 00:00:00 [facility] Influenza Virus 2010-08-27 Completed Universit y of Vaccine 00:00:00 [facility] Influenza Virus 2010-08-27 Completed Universit y of Vaccine 00:00:00 [facility] Influenza Virus 2010-08-27 Completed Universit y of Vaccine 00:00:00 [facility] Influenza Virus 2010-08-27 Completed Universit y of Vaccine 00:00:00 [facility] Influenza Virus 2010-08-27 Completed Universit y of Vaccine 00:00:00 [facility] Influenza Virus 2010-08-27 Completed Universit y of Vaccine 00:00:00 [facility] Influenza Virus 2010-08-27 Completed Universit y of Vaccine 00:00:00 [facility] Influenza Virus 2010-08-27 Completed Universit y of Vaccine 00:00:00 [facility] Influenza Virus 2010-08-27 Completed Universit y of Vaccine 00:00:00 [facility] Influenza Virus 2010-08-27 Completed Universit y of Vaccine 00:00:00 [facility] Influenza Virus 2010-08-27 Completed Universit y of Vaccine 00:00:00 [facility] Influenza Virus 2010-08-27 Completed Universit y of Vaccine 00:00:00 [facility] Influenza Virus 2010-08-27 Completed Universit y of Vaccine 00:00:00 [facility] Influenza Virus 2010-08-27 Completed Universit y of Vaccine 00:00:00 [facility] Influenza Virus 2010-08-27 Completed Universit y of Vaccine 00:00:00 [facility] Influenza Virus 2010-08-27 Completed Universit y of Vaccine 00:00:00 [facility] Influenza Virus 2010-08-27 Completed Universit y of Vaccine 00:00:00 [facility] Influenza Virus 2010-08-27 Completed Universit y of Vaccine 00:00:00 [facility] Influenza Virus 2010-08-27 Completed Universit y of Vaccine 00:00:00 [facility] Influenza Virus 2010-08-27 Completed Universit y of Vaccine 00:00:00 [facility] Influenza Virus 2010-08-27 Completed Universit y of Vaccine 00:00:00 [facility] Influenza Virus 2010-08-27 Completed Universit y of Vaccine 00:00:00 [facility] Influenza Virus 2010-08-27 Completed Universit y of Vaccine 00:00:00 [facility] Influenza Virus 2010-08-27 Completed Universit y of Vaccine 00:00:00 [facility] Influenza Virus 2010-08-27 Completed Universit y of Vaccine 00:00:00 [facility] Influenza Virus 2010-08-27 Completed Universit y of Vaccine 00:00:00 [facility] Influenza Virus 2010-08-27 Completed Universit y of Vaccine 00:00:00 [facility] Influenza Virus 2010-08-27 Completed Universit y of Vaccine 00:00:00 [facility] Influenza Virus 2010-08-27 Completed [facility]it y of Vaccine 00:00:00 [place] [facility] Influenza Virus 2010-08-27 Completed Universit y of Vaccine 00:00:00 [facility] Influenza Virus 2010-08-27 Completed Universit y of Vaccine 00:00:00 [facility] Influenza Virus 2010-08-27 Completed Universit y of Vaccine 00:00:00 [facility] Influenza Virus 2010-08-27 Completed Universit y of Vaccine 00:00:00 [facility] Influenza Virus 2010-08-27 Completed Universit y of Vaccine 00:00:00 [facility] Influenza Virus 2010-08-27 Completed Universit y of Vaccine 00:00:00 [facility] Influenza Virus 2010-08-27 Completed Universit y of Vaccine 00:00:00 [facility] Influenza Virus Unknown Completed Universit y of Vaccine [facility] SARS-COV-2 COVID-19 Unknown Completed Unive rsity of PFIZER VACCINE [facility] SARS-COV-2 COVID-19 Unknown Completed [facility] [place] Influenza Virus Unknown Completed Universit y of Vaccine [facility] SARS-COV-2 COVID-19 Unknown Completed Unive rsity of PFIZER VACCINE [facility] SARS-COV-2 COVID-19 Unknown Completed Unive rsity of PFIZER VACCINE [facility] Influenza Virus Unknown Completed [facility]it [facility] Vaccine [facility] SARS-COV-2 COVID-19 Unknown Completed Unive rsity of PFIZER VACCINE [facility] SARS-COV-2 COVID-19 Unknown Completed Unive rsity of PFIZER VACCINE [facility] [place] Influenza Virus Unknown Completed [facility]it y [facility] Vaccine [facility] SARS-COV-2 COVID-19 Unknown Completed Unive rsity of PFIZER VACCINE [facility] SARS-COV-2 COVID-19 Unknown Completed Unive rsity of PFIZER VACCINE [facility] [place] Influenza Virus Unknown Completed [facility] Vacc[facility] SARS-COV-2 COVID-19 Unknown Completed [facility]ACC[facility] [place] [facility] SARS-COV-2 COVID-19 Unknown Completed [facility] [place] [facility] Influenza Virus Unknown Completed [facility] Vacc[facility] SARS-COV-2 COVID-19 Unknown Completed [facility] PFIZER [facility]ACCINE [place] [facility] SARS-COV-2 COVID-19 Unknown Completed [facility] PFIZER [facility]ACCINE [place] [facility] Influenza Virus Unknown Completed [facility] Vacc[facility] SARS-COV-2 COVID-19 Unknown Completed [facility]ive [facility] PFIZER VACCINE [place] [facility] SARS-COV-2 COVID-19 Unknown Completed [facility]ive [facility] PFIZER VACCINE [place] [facility] Influenza Virus Unknown Completed [facility]it [facility] Vaccine [facility] SARS-COV-2 COVID-19 Unknown Completed [facility]ive [facility] PFIZER VACCINE [place] [facility] SARS-COV-2 COVID-19 Unknown Completed [facility] PFIZER VACCINE [place] [facility] Influenza Virus Unknown Completed [facility] Vacc[facility] SARS-COV-2 COVID-19 Unknown Completed [facility]ive [facility] PFIZER VACCINE [place] [facility] SARS-COV-2 COVID-19 Unknown Completed [facility]ive [facility] PFIZER VACCINE [place] [facility] Influenza Virus Unknown Completed [facility] Vaccine [facility] SARS-COV-2 COVID-19 Unknown Completed [facility]ive rs[facility] PFIZER VACCINE [place] [facility] SARS-COV-2 COVID-19 Unknown Completed [facility]ive [facility] PFIZER VACCINE [place] [facility] Influenza Virus Unknown Completed [facility] SARS-COV-2 COVID-19 Unknown Completed [facility] PFIZER VACCINE [place] [facility] SARS-COV-2 COVID-19 Unknown Completed [facility]ive [facility] PFIZER VACCINE [place] [facility] Influenza Virus Unknown Completed [facility] Vacc[facility] SARS-COV-2 COVID-19 Unknown Completed [facility]ive [facility] PFIZER VACCINE [place] [facility] SARS-COV-2 COVID-19 Unknown Completed [facility]ive rs[facility] of PFIZER VACCINE [place] [facility] Influenza Virus Unknown Completed [facility] SARS-COV-2 COVID-19 Unknown Completed [facility] PFIZER VACCINE [place] [facility] SARS-COV-2 COVID-19 Unknown Completed [facility] PFIZER VACCINE [place] [facility] Influenza Virus Unknown Completed [facility]it [facility] Vaccine [facility] SARS-COV-2 COVID-19 Unknown Completed Unive rsity of PFIZER VACCINE [facility] [place] SARS-COV-2 COVID-19 Unknown Completed Unive rsity of PFIZER VACCINE [facility] [place] Influenza Virus Unknown Completed [facility]it [facility] Vaccine [facility] SARS-COV-2 COVID-19 Unknown Completed Unive rsity of PFIZER VACCINE [facility] [place] SARS-COV-2 COVID-19 Unknown Completed Unive rsity of PFIZER VACCINE [facility] [place] Influenza Virus Unknown Completed [facility]it [facility] Vaccine [facility] SARS-COV-2 COVID-19 Unknown Completed Unive rsity of PFIZER VACCINE [facility] [place] SARS-COV-2 COVID-19 Unknown Completed [facility]ive rsity of PFIZER VACCINE [facility] [place] Influenza Virus Unknown Completed [facility]it [facility] Vaccine [facility] SARS-COV-2 COVID-19 Unknown Completed Unive rsity of PFIZER VACCINE [facility] [place] SARS-COV-2 COVID-19 Unknown Completed Unive rsity of PFIZER VACCINE [facility] [place] Influenza Virus Unknown Completed [facility]it [facility] Vaccine [facility] SARS-COV-2 COVID-19 Unknown Completed Unive rsity of PFIZER VACCINE [facility] [place] SARS-COV-2 COVID-19 Unknown Completed Unive rsity of PFIZER VACCINE [facility] [place] Vital Signs Vital Name Observation Time Observation Value Comments Source Systolic blood 2023-05-02 176 mm[Hg] University of pressure 00:00:00 [facility] Diastolic blood 2023-05-02 98 mm[Hg] University o f pressure 00:00:00 [facility] Heart rate 2023-05-02 89 /min University 00:00:00 [facility] Respiratory rate 2023-05-02 17 /min University of 00:00:00 [facility] Oxygen saturation 2023-05-02 100 /min [facility] in Arterial blood 00:00:00 [facility] by Pulse oximetry [place] Body temperature 2023-05-01 36.72 Mariam University of 21:40:00 [facility] Systolic blood 2023-05-01 174 mm[Hg] University of pressure 20:48:00 [facility] Diastolic blood 2023-05-01 102 mm[Hg] University o f pressure 20:48:00 [facility] Heart rate 2023-05-01 72 /min University of 20:43:00 [facility] Body temperature 2023-05-01 36.06 Mariam University of 20:43:00 [facility] Body height 2023-05-01 170.2 cm University of 20:43:00 [facility] Body weight 2023-05-01 88.134 kg University of 20:43:00 [facility] BMI 2023-05-01 30.43 kg/m2 University of 20:43:00 [facility] Oxygen saturation 2023-05-01 95 /min University of in Arterial blood 20:43:00 [place] [facility] Pulse oximetry [facility] Systolic blood 2023-04-16 150 mm[Hg] University of pressure 01:50:20 [facility] Diastolic blood 2023-04-16 80 mm[Hg] University o f pressure 01:50:20 [facility] Heart rate 2023-04-16 88 /min University of 01:50:20 [facility] Body temperature 2023-04-16 37 Mariam University of 01:50:20 [facility] Respiratory rate 2023-04-16 20 /min University of 01:50:20 [facility] Oxygen saturation 2023-04-16 97 /min University of in Arterial blood 01:50:20 [facility] by Pulse oximetry [facility] Body weight 2023-04-15 99.338 kg University of 22:21:00 [facility] BMI 2023-04-15 34.30 kg/m2 University of 22:21:00 [facility] Systolic blood 2023-04-05 144 mm[Hg] University of pressure 16:59:00 [facility] Diastolic blood 2023-04-05 84 mm[Hg] University o f pressure 16:59:00 [facility] Heart rate 2023-04-05 87 /min University of 16:59:00 [facility] Body temperature 2023-04-05 37 Mariam University of 16:59:00 [facility] Respiratory rate 2023-04-05 18 /min University of 16:59:00 [facility] Oxygen saturation 2023-04-05 97 /min University of in Arterial blood 16:59:00 [facility] by Pulse oximetry Branch Body height 2023-04-03 170.2 cm University of 15:27:00 [facility] Body weight 2023-04-03 97.07 kg University of 15:27:00 [facility] BMI 2023-04-03 33.52 kg/m2 University of 15:27:00 [facility] Systolic blood 2023-03-31 157 mm[Hg] University of pressure 20:08:00 [facility] Diastolic blood 2023-03-31 89 mm[Hg] University o f pressure 20:08:00 [facility] Heart rate 2023-03-31 90 /min University of 20:08:00 [facility] Body temperature 2023-03-31 36.61 Mariam University of 20:08:00 [facility] Respiratory rate 2023-03-31 18 /min University of 20:08:00 [facility] Oxygen saturation 2023-03-31 100 /min University of in Arterial blood 20:08:00 [facility] by Pulse oximetry [facility] Body height 2023-03-31 170.2 cm University of 07:33:00 [facility] Body weight 2023-03-31 97.07 kg University of 07:33:00 [facility] BMI 2023-03-31 33.52 kg/m2 University of 07:33:00 [facility] Systolic blood 2023-03-28 127 mm[Hg] University of pressure 16:38:00 [facility] Diastolic blood 2023-03-28 77 mm[Hg] University o f pressure 16:38:00 [facility] Heart rate 2023-03-28 86 /min University of 16:38:00 [facility] Body temperature 2023-03-28 36.5 Mariam University of 16:38:00 [facility] Respiratory rate 2023-03-28 18 /min University of 16:38:00 [facility] Oxygen saturation 2023-03-28 94 /min University of in Arterial blood 16:38:00 [facility] by Pulse oximetry [facility] Body weight 2023-03-28 98.022 kg University of 08:34:00 [facility] BMI 2023-03-28 33.85 kg/m2 University of 08:34:00 [facility] Body height 2023-03-27 170.2 cm University of 08:01:00 [facility] Systolic blood 2022-12-13 177 mm[Hg] University of pressure 04:20:00 [facility] Diastolic blood 2022-12-13 92 mm[Hg] University o f pressure 04:20:00 [facility] Heart rate 2022-12-13 86 /min University of 04:20:00 [facility] Respiratory rate 2022-12-13 20 /min University of 04:20:00 [facility] Oxygen saturation 2022-12-13 100 /min University of in Arterial blood 04:20:00 [facility] by Pulse oximetry [facility] Body temperature 2022-12-13 37.06 Mariam University of 00:10:00 [facility] Body weight 2022-12-13 97.07 kg University of :10: [facility] BMI 2022-12-13 33.52 kg/m2 University of :10:00 [facility] Systolic blood 2022-12-06 150 mm[Hg] University of pressure 16:07:00 [facility] Diastolic blood 2022-12-06 96 mm[Hg] University o f pressure 16:07:00 [facility] Heart rate 2022-12-06 85 /min University of 16:06: [facility] Body temperature 2022-12-06 36.44 Mariam University of 16:06:00 [facility] Respiratory rate 2022-12-06 18 /min University of 16:06:00 [facility] Body height 2022-12-06 170.2 cm University of 16:06:00 [facility] Body weight 2022-12-06 99.066 kg University of 16:06: [facility] BMI 2022-12-06 34.21 kg/m2 University of 16:06:00 [facility] Oxygen saturation 2022-12-06 99 /min University of in Arterial blood 16:06:00 [facility] by Pulse oximetry [facility] Systolic blood 2022-12-01 173 mm[Hg] University of pressure 03:30:00 [facility] Diastolic blood 2022-12-01 95 mm[Hg] University o f pressure 03:30:00 [facility] Heart rate 2022-12-01 68 /min University of 03:30:00 [facility] Respiratory rate 2022-12-01 15 /min University of 03:30:00 [facility] Oxygen saturation 2022-12-01 96 /min University of in Arterial blood 03:30:00 [facility] by Pulse oximetry [facility] Body temperature 2022-12-01 37.11 Mariam University of 00:33:00 [facility] Body height 2022-12-01 170.2 cm University of :33: [facility] Body weight 2022-12-01 104.327 kg University of 00:33:00 [facility] BMI 2022-12-01 36.02 kg/m2 University of 00:33:00 [facility] Body height 2022-10-25 162.6 cm University of 18:42:00 [facility] Body weight 2022-10-25 104.327 kg University of 18:42:00 [facility] BMI 2022-10-25 39.48 kg/m2 University of 18:42:00 [facility] Systolic blood 2022-10-09 176 mm[Hg] University of pressure 19:02:00 [facility] Diastolic blood 2022-10-09 78 mm[Hg] University o f pressure 19:02:00 [facility] Heart rate 2022-10-09 68 /min University of 19:02:00 [facility] Body temperature 2022-10-09 36.61 Mariam University of 19:02:00 [facility] Respiratory rate 2022-10-09 16 /min University of 19:02:00 [facility] Body height 2022-10-09 170.2 cm University of 19:02:00 [facility] Body weight 2022-10-09 104.146 kg University of 19:02:00 [facility] BMI 2022-10-09 35.96 kg/m2 University of 19:02:00 [facility] Oxygen saturation 2022-10-09 98 /min [facility] in Arterial blood 19:02:00 [facility] Pulse oximetry [place] Systolic blood 2022-07-17 123 mm[Hg] University of pressure 20:42:00 [facility] Diastolic blood 2022-07-17 72 mm[Hg] University o f pressure 20:42:00 [facility] Heart rate 2022-07-17 84 /min University of 20:42:00 [facility] Body temperature 2022-07-17 36.56 Mariam University of 20:42:00 [facility] Respiratory rate 2022-07-17 20 /min University of 20:42:00 [facility] Body height 2022-07-17 170.2 cm University of 20:42:00 [facility] Body weight 2022-07-17 108.098 kg University of 20:42:00 [facility] BMI 2022-07-17 37.33 kg/m2 University of 20:42:00 [facility] Oxygen saturation 2022-07-17 98 /min University of in Arterial blood 20:42:00 [facility] by Pulse oximetry Branch Systolic blood 2022-05-31 177 mm[Hg] University of pressure 15:04:00 [facility] Diastolic blood 2022-05-31 86 mm[Hg] University o f pressure 15:04:00 [facility] Heart rate 2022-05-31 80 /min University of 15:04:00 [facility] Body temperature 2022-05-31 37 Mariam University of 15:04:00 [facility] Respiratory rate 2022-05-31 20 /min University of 15:04:00 [facility] Body weight 2022-05-31 95.255 kg University of 15:04:00 [facility] BMI 2022-05-31 32.89 kg/m2 University of 15:04:00 [facility] Oxygen saturation 2022-05-31 99 /min University of in Arterial blood 15:04:00 [facility] by Pulse oximetry [facility] Systolic blood 2022-05-02 157 mm[Hg] University of pressure 20:26:00 [facility] Diastolic blood 2022-05-02 97 mm[Hg] University o f pressure 20:26:00 [facility] Heart rate 2022-05-02 95 /min University of 20:25:00 [facility] Body temperature 2022-05-02 36.67 Mariam University of 20:25:00 [facility] Respiratory rate 2022-05-02 18 /min University of 20:25:00 [facility] Body weight 2022-05-02 104.282 kg University of 20:25:00 [facility] BMI 2022-05-02 36.01 kg/m2 University of 20:25:00 [facility] Oxygen saturation 2022-05-02 97 /min University of in Arterial blood 20:25:00 [facility] by Pulse oximetry [facility] Systolic blood 2022-04-03 187 mm[Hg] University of pressure 19:47:00 [facility] Diastolic blood 2022-04-03 83 mm[Hg] University o f pressure 19:47:00 [facility] Heart rate 2022-04-03 79 /min University of 19:44:00 [facility] Body temperature 2022-04-03 36.78 Mariam University of 19:44:00 [facility] Respiratory rate 2022-04-03 18 /min University of 19:44:00 [facility] Body height 2022-04-03 170.2 cm University of 19:44:00 [facility] Body weight 2022-04-03 106.595 kg University of 19:44:00 [facility] BMI 2022-04-03 36.81 kg/m2 University of 19:44:00 [facility] Oxygen saturation 2022-04-03 97 /min [facility] in Arterial blood 19:44:00 [facility] by Pulse oximetry Branch height 2022-02-19 63.5 [in_i] [facility] - 13:20:00 [facility] weight 2022-02-19 232 [lb_av] [facility] - 13:20:00 [facility] temperature 2022-02-19 97.6 [degF] [facility] - 13:20:00 [facility] bmi 2022-02-19 40.45 kg/m2 [facility] - 13:20:00 [facility] oximetry 2022-02-19 97 % [facility] - 13:20:00 [facility] respiratory rate 2022-02-19 16 /min [facility] - 13:20:00 [facility] blood pressure 2022-02-19 124 mm[Hg] [facility] - systolic 13:20:00 [facility] blood pressure 2022-02-19 60 mm[Hg] [facility] - diastolic 13:20:00 [facility] Systolic blood 2021-05-01 150 mm[Hg] University of pressure 23:42:00 [facility] Diastolic blood 2021-05-01 80 mm[Hg] University o f pressure 23:42:00 [facility] Heart rate 2021-05-01 74 /min University of 23:38:00 [facility] Body temperature 2021-05-01 36.33 Mariam University of 23:38:00 [facility] Respiratory rate 2021-05-01 20 /min University of 23:38:00 [facility] Body weight 2021-05-01 109.408 kg University of 23:38:00 [facility] BMI 2021-05-01 37.78 kg/m2 University of 23:38:00 [facility] Oxygen saturation 2021-05-01 98 /min [facility] in Arterial blood 23:38:00 [place] [facility] Pulse oxim[facility] Systolic blood 2020-06-28 157 mm[Hg] University of pressure 16:49:00 [facility] Diastolic blood 2020-06-28 90 mm[Hg] University o f pressure 16:49:00 [facility] Heart rate 2020-06-28 67 /min University of 16:46:00 [facility] Body temperature 2020-06-28 36.5 Mariam University of 16:46:00 [facility] Respiratory rate 2020-06-28 12 /min University of 16:46:00 [facility] Body height 2020-06-28 170.2 cm University of 16:46:00 [facility] Body weight 2020-06-28 106.913 kg University of 16:46:00 [facility] BMI 2020-06-28 36.92 kg/m2 University of 16:46:00 [facility] Oxygen saturation 2020-06-28 97 /min University of in Arterial blood 16:46:00 [place] [facility] Pulse oxim[facility] Systolic blood 2020-05-24 161 mm[Hg] Pt states she University o f pressure 20:15:00 is nervous [facility] Diastolic blood 2020-05-24 84 mm[Hg] Pt states she University of pressure 20:15:00 is nervous [facility] Heart rate 2020-05-24 56 /min University of 20:15:00 [facility] Body temperature 2020-05-24 36.5 Mariam University of 20:15:00 [facility] Respiratory rate 2020-05-24 18 /min University of 20:15:00 [facility] Body height 2020-05-24 170.2 cm University of 20:15:00 [facility] Body weight 2020-05-24 108.274 kg University of 20:15:00 [facility] BMI 2020-05-24 37.39 kg/m2 University of 20:15:00 [facility] Oxygen saturation 2020-05-24 97 /min [facility] of in Arterial blood 20:15:00 [place] [facility] Pulse oxim[facility] Systolic blood 2020-05-12 129 mm[Hg] University of pressure 16:05:00 [facility] Diastolic blood 2020-05-12 73 mm[Hg] University o f pressure 16:05:00 [facility] Heart rate 2020-05-12 67 /min University of 16:05:00 [facility] Body temperature 2020-05-12 36.22 Mariam University of 16:05:00 [facility] Body weight 2020-05-12 107.502 kg [facility] 16:05:00 [facility] BMI 2020-05-12 37.12 kg/m2 [facility] 16:05:00 [facility] Oxygen saturation 2020-05-12 97 /min [facility] in Arterial blood 16:05:00 [facility] by Pulse oximetry [place] Systolic blood 2020-05-12 129 mm[Hg] [facility] pressure 16:05:00 [facility] Diastolic blood 2020-05-12 73 mm[Hg] [facility] pressure 16:05:00 [facility] Heart rate 2020-05-12 67 /min [facility] 16:05:00 [facility] Body temperature 2020-05-12 36.22 [facility] 16:05:00 [facility] Body weight 2020-05-12 107.502 kg [facility] 16:05:00 [facility] BMI 2020-05-12 37.12 kg/m2 [facility] 16:05:00 [facility] Oxygen saturation 2020-05-12 97 /min [facility] in Arterial blood 16:05:00 [facility] Pulse oximetry [place] Procedures Procedure Date / Time Performing Clinician Source Performed LIPASE 2023-05-01 22:28:00 [facility] HEPATIC FUNCTION PANEL 2023-05-01 22:28:00 [facility] ([id number]) (ALB,T.PRO,BILI [facility] T,BU/BC,ALT,AST,ALK PHOS) COMP. METABOLIC PANEL 2023-05-01 22:28:00 [facility] ([id number]) [facility] CBC WITH DIFF 2023-05-01 22:28:00 [facility] CONSENT/REFUSAL FOR 2023-05-01 21:30:50 Doctor Unassigned, No [facility] DIAGNOSIS AND TREATMENT Name [facility] [place] REFERRAL- 2023-04-26 05:01:00 Doctor Unassigned, No [facility] REQUEST/RESPONSE Name [facility] MAGNESIUM 2023-04-05 09:43:00 [facility] BASIC METABOLIC PANEL 2023-04-05 09:43:00 [facility]alinogaiman [facility] (NA, K, CL, CO2, GLUCOSE, Medica l Branch BUN, CREATININE, CA) PROTEIN QUANT U/24H 2023-04-04 17:50:00 Rosaura Duque [facility] PREALBUMIN, SERUM 2023-04-04 10:38:00 Donna [facility] MAGNESIUM 2023-04-04 10:38:00 Samir [facility] [place] FOLATE 2023-04-04 10:38:[address] [facility] BASIC METABOLIC PANEL 2023-04-04 10:38:00 Samri [facility] (NA, K, CL, CO2, GLUCOSE, Medica l Branch BUN, CREATININE, CA) CBC WITH DIFF 2023-04-04 10:38:00 Samir [facility] [place] URINE DRUG (IMMUNOASSAY) 2023-04-03 13:20:00 Neto [facility] SCREEN PROTEIN CREAT RATIO URINE 2023-04-03 13:20:00 Nicole Dawson [facility] C4 COMPLEMENT 2023-04-03 12:08:00 Neto [facility] ANTI-NUCLEAR ANTIBODY 2023-04-03 12:08:00 Neto [facility] HCV ANTIBODY 2023-04-03 12:08:00 Neto [facility] HBC ANTIBODY (IGM & IGG) 2023-04-03 12:08:00 Neto [facility] LACTIC ACID WHOLE BLOOD 2023-04-03 12:08:00 Neto [facility] SYPHILIS IGG/IGM 2023-04-03 12:08:00 Neto [facility] EKG-12 LEAD 2023-04-03 08:59:47 Anika Pena [facility] LIPID PANEL ([id number])(TOTAL 2023-04-03 05:48:00 Anika Pena [facility], HDL) BLOOD CULTURE SCREEN 2023-04-03 04:44:00 Mateus Coulter [facility] CT THORAX WO CONTRAST 2023-04-03 04:06:56 Mateus Coulter [facility] CREATINE KINASE 2023-04-03 03:38:[address] [facility] VITAMIN B12, LEVEL 2023-04-03 03:38:00 Becky [facility] TROPONIN I 2023-04-03 03:38:[address] [facility] COMP. METABOLIC PANEL 2023-04-03 03:38:00 Becky Anika [facility] ([id number]) [facility] N-TERMINAL PRO-BNP 2023-04-03 03:38:00 Becky [facility] BLOOD CULTURE SCREEN 2023-04-03 03:37:00 Mateus Coulter [facility] PHOSPHORUS 2023-04-03 03:37:00 Yfn [facility] MAGNESIUM 2023-04-03 03:37:00 Yfn [facility] TEST, SERUM 2023-04-03 03:37:00 Mateus Coulter [facility] FREE T4 2023-04-03 03:37:00 Yfn [facility] THYROID STIMULATING 2023-04-03 03:37:00 Mateus Coulter [facility] HORMONE [facility] CBC WITH DIFF 2023-04-03 03:37:[address] [facility] URINALYSIS 2023-04-03 03:37:[address] [facility] LACTIC ACID WHOLE BLOOD 2023-04-03 03:36:00 Mateus Coulter [facility] XR CHEST 2 VW 2023-04-03 02:23:[address] [facility] CONSENT/REFUSAL FOR 2023-04-03 01:16:54 Doctor Unassigned, No Un [facility] DIAGNOSIS AND TREATMENT Name Medical Branch MAGNESIUM 2023-03-31 16:13:00 Britany Read [facility] IRON PANEL 2023-03-31 16:13:00 Britany Read [facility] N-TERMINAL PRO-BNP 2023-03-31 16:13:00 Britany Read [facility] POCT GLUCOSE (AUTOMATED) 2023-03-31 12:07:00 Tyrel Obando [facility] POCT GLUCOSE (AUTOMATED) 2023-03-31 10:43:00 Tyrel Obando Un [facility] [place] [place] HB ECG ROUTINE & RHYTHM 2023-03-31 09:32:34 Tyrel Obando [facility] [place] XR CHEST 1 VW 2023-03-31 09:11:17 Tyrel Obando [facility] US LOWER EXTREMITY VEIN 2023-03-31 08:40:00 Tyrel Obando [facility] WITH COMPRESSION [facility] BILATERAL (ONLY FOR RULE OUT DVT) URINALYSIS 2023-03-31 08:29:00 Tyrel Obando [facility] MAGNESIUM 2023-03-31 08:14:00 Tyrel Obando [facility] COMP. METABOLIC PANEL 2023-03-31 08:14:00 Tyrel Obando [facility] ([id number]) [facility] CBC WITH DIFF 2023-03-31 08:14:00 Tyrel Obando [facility] N-TERMINAL PRO-BNP 2023-03-31 08:14:00 Tyrel Obando [facility] CONSENT/REFUSAL FOR 2023-03-31 07:23:58 Doctor Unassigned, No Un [facility] DIAGNOSIS AND TREATMENT Name Medical Branch TRANSTHORACIC ECHO (TTE) 2023-03-28 15:31:04 Fern Bal [facility] CT HEAD WO CONTRAST 2023-03-28 09:54:00 Wolf Ennis [facility] POCT GLUCOSE (AUTOMATED) 2023-03-28 04:56:00 Wolf Ennis [facility] HB ECG ROUTINE & RHYTHM 2023-03-27 22:18:55 Read, [facility] STRIP [facility] Branch TROPONIN I 2023-03-27 22:08:00 Jacek [facility] US ABDOMEN LIMITED 2023-03-27 16:51:00 Loli [facility] TROPONIN I 2023-03-27 16:50:00 Loli [facility] BLOOD CULTURE SCREEN 2023-03-27 08:47:00 Loli [facility] TROPONIN I 2023-03-27 08:47:00 Loli [facility] COMP. METABOLIC PANEL 2023-03-27 08:47:[address] [facility] ([id number]) [facility] CBC WITHOUT DIFF 2023-03-27 08:47:00 Loli [facility] HEPATITIS B SURFACE 2023-03-27 08:47:00 Loli [facility] ANTIBODY [facility] Branch HEPATITIS B SURFACE 2023-03-27 08:47:00 Loli [facility] ANTIGEN [facility] HEPATITIS A VIRUS 2023-03-27 08:47:00 Loli [facility] ANTIBODY IGM [facility] RAPID INFLUENZA A/B 2023-03-27 08:47:[facility] VIRUS (HCV) 2023-03-27 08:47:00 Loli [facility] BY QUANTITATIVE NAAT [facility] XR CHEST 1 VW 2023-03-27 03:09:08 Poppy [facility] LIPASE 2023-03-27 03:03:00 Poppy [facility] MAGNESIUM 2023-03-27 03:03:00 Loli [facility] TROPONIN I 2023-03-27 03:03:00 Poppy [facility] COMP. METABOLIC PANEL 2023-03-27 03:03:00 Poppy [facility] ([id number]) [facility] CBC WITH DIFF 2023-03-27 03:03:00 Poppy [facility] URINALYSIS 2023-03-27 03:03:00 [facility] POCT TEST 2023-03-27 03:03:00 Poppy [facility] COVID-19 (ID NOW RAPID 2023-03-27 03:03:00 Mike Mcwilliams [facility] TESTING) Medical Branch LAB ONLY COVID 2023-03-27 03:03:00 Poppy [facility] INTERPRETATION [facility] HB ECG ROUTINE & RHYTHM 2023-03-27 02:57:03 Poppy [facility] STRIP [facility] Branch CONSENT/REFUSAL FOR 2023-03-27 01:45:27 Doctor Unassigned, No Un [facility] [place] DI[facility]NOSIS [facility] TREATMENT Name [facility] HOSPITAL ADMISSION 2023-03-26 05:01:00 Doctor Unassigned, No Uni [facility] URINALYSIS 2022-12-13 03:46:00 Julius Benedict [facility] LIPASE 2022-12-13 00:51:00 Julius Benedict [facility] HEPATIC FUNCTION PANEL 2022-12-13 00:51:00 Julius Benedict [facility] ([id number]) (ALB,T.PRO,BILI Medical Branch T,BU/BC,ALT,AST,ALK PHOS) BASIC METABOLIC PANEL 2022-12-13 00:51:00 Julius Benedict [facility] (NA, K, CL, CO2, GLUCOSE, Medica l Branch BUN, CREATININE, CA) CBC WITH DIFF 2022-12-13 00:51:00 Julius Benedict [facility] CONSENT/REFUSAL FOR 2022-12-12 23:47:25 Doctor Unassigned, No Un [facility] [place] DIAGNOSIS AND TREATMENT Name [facility] CT ABDOMEN PELVIS W 2022-12-01 01:22:59 Christine Florence [facility] CONTRAST Medical Branch LIPASE 2022-12-01 00:52:00 Christine Florence [facility] COMP. METABOLIC PANEL 2022-12-01 00:52:00 Christine Florence [facility] ([id number]) Medical Branch CBC WITH DIFF 2022-12-01 00:52:00 Christine Florence [facility] Branch URINALYSIS 2022-12-01 00:52:00 Christine Florence [facility] Branch NOTICE OF PRIVACY 2022-12-01 00:28:55 Doctor Unassigned, No [facility] [place] PRACTICES Name Medical Branch CONSENT/REFUSAL FOR 2022-12-01 00:24:19 Doctor Unassigned, No Un [facility] [place] DIAGNOSIS AND TREATMENT Name Medical Branch CONSENT/REFUSAL FOR 2022-11-08 18:33:17 Doctor Unassigned, No Un [facility] [place] DIAGNOSIS AND TREATMENT Name Medical Branch XR KNEE 3 VW RIGHT 2022-10-09 19:26:17 Joi Eli [facility] Medical Branch [facility] PATIENT FINANCIAL 2022-10-09 18:49:53 Doctor Unassigned, No [facility] POLICY Name Medical Branch RAPID INFLUENZA A/B 2022-05-31 15:11:00 Brandon Benitez [facility] Medical Branch CONSENT/REFUSAL FOR 2022-05-31 14:51:58 Doctor Unassigned, No Un [facility] [place] DIAGNOSIS AND TREATMENT Name Medical Branch AUTHORIZATION FOR RELEASE 2022-04-25 05:01:00 Doctor Unassigned, No [facility] Name Medical Branch CT ABDOMEN PELVIS WO 2020-06-02 19:22:58 Theo Silveira [facility] CONTRAST Medical Branch CONSENT/REFUSAL FOR 2020-06-02 19:09:03 Doctor Unassigned, No Un [facility] [place] DIAGNOSIS AND TREATMENT Name Medical Branch ASSIGNMENT OF BENEFITS 2020-06-02 19:08:50 Doctor Unassigned, No [facility] Name Medical Branch ASSIGNMENT OF BENEFITS 2020-05-18 16:46:58 Doctor Unassigned, No [facility] Name Medical Branch ASSIGNMENT OF BENEFITS 2020-05-12 15:54:07 Doctor Unassigned, No [facility] Medical Branch REFERRAL- 2020-04-12 05:01:00 Doctor Unassigned, No [facility] REQUEST/RESPONSE Name Medical Branch [id number] 2019-11-10 00:00:00 [facility] [id number] 2019-11-10 00:00:00 [facility] Encounters Start End Encounter Admission Attending Care Care Encounter Source Date/Time Date/Time Type Type Clinicians Facility Department ID 2023-04-25 Outpatient KRISTEN Christie [facility] [id number] Common 08:46:00 Joanne [id number] [facility] 2023-04-23 Outpatient KRISTEN Christie [facility] [id number] Common 07:41:00 Joanne [id number] [facility] 2022-03-21 Outpatient [facility] [id number] [place] 10:57:56 [id number] [facility] 2022-02-28 Outpatient [facility] [id number] [place] 09:43:32 [id number] [facility] 2022-02-16 Outpatient KRISTEN Christie [facility] [id number] Common 13:31:01 Joanne [facility] 2022-02-15 Outpatient [facility] [id number] [place] 12:18:[id number] [place] [address] 2021-04-22 Outpatient Jeffrey TUTTLE [facility] THOMAS [id number] Univers 08:12:51 [facility] 2021-04-22 Outpatient Jeffrey TUTTLE [facility] TH[facility] [id number] Univers 07:01:10 [facility] 2019-10-30 Inpatient [facility] ENDO [id number] [facility]CA 09:30:00 , Immanuel 53 [facility] 2023-05-01 2023-05-01 Emergency X JEANE [facility] ERT [id number] Univers 15:41:00 18:18:00 [facility] 2023-05-01 2023-05-01 Emergency Jeane [facility] 1.2.840.114 [id number] Univers 15:41:00 18:18:00 [facility] 350.1.13.10 it [place] 4.2.7.2.686 [facility] [id number] [address] ([facility]) 2023-05-01 2023-05-01 Office Timothy WAALEXANDR 1.2.840.114 [id number] Univers 14:30:00 15:00:00 Visit Diana RAMIREZ 350.1.13.10 it[place] AT [phone] Nj nathan ANDRES 2 [facility] 2023-05-01 2023-05-01 Outpatient R TIMOTHY [facility] [id number] Univers 14:30:00 14:30:00 DIANA espinoza [facility] 2023-04-26 2023-04-26 Orders Doctor JOE 1.2.840.114 [id number] Univers 00:00:00 00:00:00 Only Unassigned, BAKARI 350.1.13.10 ity of [place] HOSPITAL 4.2.7.2.686 Demario as [id number] [facility] [address] [place] 2023-04-18 2023-04-18 Outpatient SFA SFA [id number] Bryn 12:59:23 12:59:23 [address] [place] 2023-04-15 2023-04-15 Emergency [facility] [id number] Univers 17:22:00 20:52:00 LESLYE alonso o f [facility] 2023-04-15 2023-04-15 Emergency Samantha, TRAUMA [id number] Univers 17:22:00 20:52:00 [facility] 350.1.13.10 i ty of [facility] [place] [phone] [facility] 014 Branch 2023-04-11 2023-04-11 Letter Shhanaz, UNIVERSIT 1.2.861.091 [id number] Univers 00:00:00 00:00:00 (Out) [facility] 350.1.13.10 i ty of CL[place]ICS [place].2.[place] [id number] [facility] 084 Branch 2023-04-02 2023-04-05 Outpatient X JT [facility] DAVIN [id number] Univers 20:26:00 14:20:00 BRODERICK austen [facility] 2023-04-02 2023-04-05 Emergency Mateus Coulter 1.2.840 .114 [id number] Univers 20:26:00 14:20:00 Jay Aguila 350.1.13.10 ity of [place] Rolando [facility] 4.2.7.2.68 6 [place] [id number] [facility] 093 Branch 2023-04-02 2023-04-02 Outpatient R KING CHARIS, [facility] [id number] Univers 07:00:00 07:00:00 DANIS ity [facility] 2023-04-01 2023-04-01 Telephone Ashvin Diaz [facility] 1.2.840.114 [id number] Univers 00:00:00 00:00:00 [employer] 350.1.13.10 it y of [place] 4[place]2.7.2.686 [place] [facility] [id number] Med ical [address] 2023-04-01 2023-04-01 Isaac Knox [facility] 1.2.840.114 [id number] Univers 00:00:00 00:00:00 Hoang S HEALTH 350.1.13.10 it y of [place] 4.2.7.2.686 Demario as FARRUKH?BLEA [phone] [address] MEDICAL OFFICE BUILDING 2023-04-01 2023-04-01 Patient Doctor JOE 1.2.840.114 [id number] Univers 00:00:00 00:00:00 Secure Msg Unassigned, BAKARI 350.1.13.10 [facility] 4.2.7.2.686 Demario as [id number] [address] 2023-03-31 2023-03-31 Outpatient U FERN [facility] [id number] Univers 02:35:00 16:25:00 FERN BAL ity [facility] 2023-03-31 2023-03-31 [facility] Tyrel Obando [facility] 1.2.840. 114 [id number] Univers 02:35:00 16:25:00 Encounter Fern Bal [facility] 350.1.13. 10 ity of [place].2.686 [place] [facility] [id number] [address] ([facility]) 2023-03-29 2023-03-29 Transition KWAME Clark 1.2.840.114 [id number] Univers 00:00:00 00:00:00 of Care Damaris SADLER 350.1.13.10 it[place] of [place]2.7.2.[place] [id number] [facility] 403 Branch 2023-03-29 2023-03-29 Patient Doctor JOE 1.2.840.114 [id number] Univers 00:00:00 00:00:00 Secure Msg Unassigned, BAKARI 350.1.13.10 ity of [place] [facility] 4.2.7.2.686 Demario as [phone] [facility] 019 Branch 2023-03-26 2023-03-28 Outpatient X [facility] [id number] Univers 21:02:00 18:03:00 WOLF ity [facility] 2023-03-26 2023-03-28 [facility] Mike Mcwilliams [facility] 1.2.8 40.114 [id number] Univers 21:02:00 18:03:00 Encounter EnnisWolf [facility] 350.1.13.10 ity of [place]2.7.2.686 [place] [facility] [id number] [address] ([facility]) 2023-03-18 2023-03-18 Outpatient SFA [facility] [id number] Bryn 13:15:50 13:15:50 [address] [place] 2023-01-16 2023-01-16 Outpatient SFA [facility] [id number] Bryn 13:06:56 13:06:56 0726 [address] [place] 2023-01-01 2023-01-01 Outpatient R ALYCE CROWDER [facility] [id number] Univers 13:45:00 13:45:00 ity of [facility] 2022-12-12 2022-12-12 Emergency X JULIUS BENEDICT [facility] ERT [id number] Univers 19:11:00 23:38:00 JULIUS BENEDICT i ty [facility] 2022-12-12 2022-12-12 Emergency Jak, TRAUMA 1.2.977.966 [id number] Univers 19:11:00 23:38:00 Julius FIGUEROA 350.1.13.10 it y [place] [id number] [facility] 014 Branch 2022-12-06 2022-12-06 Outpatient R ARCENIO CYNTHIA [facility] [id number] Univers 10:45:00 11:35:22 CYNTHIA RG ity [facility] 2022-12-06 2022-12-06 Office [facility] 1.2.840.114 [id number] Univers 10:45:00 11:35:22 Visit Cynthia DARLING 350.1.13.10 ity of [place] 4.2.7.2.[place] PROFESSIO [phone] Nj dical [facility] 188 [facility] 2022-11-30 2022-11-30 Emergency [facility] [id number] Univers 19:38:00 22:32:00 [facility] 2022-11-30 2022-11-30 [facility] 1.2.173.164 [id number] Univers 19:38:00 22:32:00 Christine DARLING 350.1.13.10 i ty of [place] 4.2.7.2.686 [place] CAMPUS [id number] [facility] [address] [place] 2022-11-30 2022-11-30 Orders Doctor JOE 1.2.840.114 [id number] Univers 00:00:00 00:00:00 Only Unassigned, BAKARI 350.1.13.10 ity of [place] [facility] 4.2.7.2.686 Demario as [id number] [facility] 009 Branch 2022-11-08 2022-11-08 Outpatient R LISETTE [facility] [id number] Univers 13:33:26 23:59:00 HOANG ity [facility] 2022-11-08 2022-11-08 [facility] 1.2.840.114 [id number] Univers 13:33:26 23:59:00 Encounter Hoang DARILNG 350.1.13.10 ity of [place] 4.2.7.2.[place] CAMPUS [id number] [facility] 804 Branch 2022-11-08 2022-11-08 Orders Doctor JOE 1.2.840.114 [id number] Univers 00:00:00 00:00:00 Only Unassigned, BAKARI 350.1.13.10 ity of [place] HOSPITAL 4.2.7.2.686 Demario as [id number] [facility] [address] [place] 2022-10-30 2022-10-30 Patient Doctor UNIVERSIT 1.2.187.842 [id number] Univers 00:00:00 00:00:00 Secure Msg Unassigned, Y HEALTH 350.1.13.10 ity of [place] [facility] 4.2.7.2.686 [place] [id number] [facility] [address] [place] 2022-10-25 2022-10-25 Outpatient R LISETTE [facility] [id number] Univers 13:50:00 23:59:00 HOANG ity [facility] 2022-10-25 2022-10-25 Office [facility] 1.2.840.114 [id number] Univers 13:45:00 14:19:50 Visit [facility] 350.1.13.10 it y of [place] 4.2.7.2.686 Demario as FARRUKH?BLEA [id number] Nj nathan VO [address] [facility] OFFICE [facility] 2022-10-09 2022-10-09 Outpatient R SREEDHAR [facility] [id number] Univers 14:13:21 23:59:00 JOI itausten [facility] 2022-10-09 2022-10-09 [facility] Sreedhar [facility] 1.2.840.114 [id number] Univers 14:13:21 23:59:00 [facility] 350.1.13.10 ity of [place] 4.2.7.2.686 Demario as FARRUKH?BLEA [phone] Nj diccolleen GILDA [address] [facility] OFFICE [facility] 2022-10-09 2022-10-09 Urgent Joi Eli [facility] 1.2.840.114 [id number] Univers 14:00:00 14:20:00 Care Unknown, Attending HEALTH 350.1.13.10 ity of [place] 4.2.7.2.686 Demario as FARRUKH?BLEA [id number] Nj dical KINSEYDIANE [address] [place] MEDICAL OFFICE BUILDING 2022-10-09 2022-10-09 Patient Doctor [facility] 1.2.840.114 [id number] Univers 00:00:00 00:00:00 Secure Msg Unassigned, MULTISPEC 350.1.13.10 ity of [place].2.7.2.686 [place] [id number] [facility] AND [address] [facility] 2022-10-09 2022-10-09 Orders Doctor JOE 1.2.840.114 [id number] Univers 00:00:00 00:00:00 Only Unassigned, BAKARI 350.1.13.10 ity of [place] [facility] 4.2.7.2.686 Demario as [id number] [address] 2022-07-17 2022-07-17 Outpatient R SREEDHAR [facility] [id number] Univers 14:20:00 14:55:31 JOI ity of [facility] 2022-07-17 2022-07-17 Urgent Joi Eli [facility] 1.2.840.114 [id number] Univers 14:20:00 14:55:31 Care Unknown, Attending HEALTH 350.1.13.10 ity of [place] 4.2.7.2.686 Demario as FARRUKH?BLEA [id number] Nj nathan GILDA [address] [place] MEDICAL OFFICE [facility] 2022-05-31 2022-05-31 Emergency X Brandon BENITEZ [facility] ERT [id number] Univers 09:01:00 10:04:00 ity of [facility] 2022-05-31 2022-05-31 Emergency Brandon Benitez [facility] 1.2.840.114 [id number] Univers 09:01:00 10:04:00 Opal DARLING 350.1.13.10 i ty of [place] 4.2.7.2.686 [place] [id number] [place] 6[address]84 [place] 2022-05-03 2022-05-03 Letter JOE Marcelo 1.2.840.114 [id number] Univers 00:00:00 00:00:00 (Out) Jessika LYLESY 350.1.13.10 it y of HOSPITAL 4.2.7.2.686 Demario as [id number] [facility] [address] [place] 2022-05-03 2022-05-03 Telephone [facility] 1.2.840.114 [id number] Univers 00:00:00 00:00:00 [facility] 350.1.13.10 it y [facility] 4.2.7.2.686 Demario as FARRUKH?BLEA [id number] [address] MEDICAL OFFICE [facility] 2022-05-02 2022-05-02 Outpatient R [facility] [id number] Univers 13:20:00 15:03:16 JESSI lui [facility] 2022-05-02 2022-05-02 Urgent Jessi Long [facility] 1.2.840 .114 [id number] Univers 13:20:00 13:40:00 Care Unknown, Attending HEALTH 350.1.13.10 ity of [facility] 4.2.7.2.686 Demario as FARRUKH?BLEA [id number] [address] MEDICAL OFFICE [facility] 2022-04-25 2022-04-25 Orders Doctor JOE 1.2.840.114 [id number] Univers 00:00:00 00:00:00 Only Unassigned, BAKARI 350.1.13.10 ity of [place] [facility] 4.2.7.2.686 Demario as [id number] [address] 2022-04-03 2022-04-03 Urgent Jessi Long [facility] 1.2.840 .114 [id number] Univers 15:00:00 15:20:00 Care Unknown, Attending HEALTH 350.1.13.10 ity of [facility] 4.2.7.2.686 Demario as FARRUKH?BLEA [id number] [address] MEDICAL OFFICE [facility] 2022-04-03 2022-04-03 Outpatient R [facility] [id number] Univers 15:00:00 15:10:31 JESSI lui [facility] 2022-03-02 2022-03-02 (TEL) [facility] [id number] Co mmon 00:00:00 00:00:00 [facility] 2022-02-19 2022-02-19 PREV VISIT [facility] [id number] Common 00:00:00 00:00:00 EST AGE Spirit 40-64 - [facility] 2021-10-24 2021-10-24 Isaac Eli WAALEXANDR 1.2.840.114 [id number] Univers 00:00:00 00:00:00 Joi HEALTH 350.1.13.10 it y of [place] 4.2.7.2.686 Demario as FARRUKH?BLEA [id number] [address] MEDICAL OFFICE BUILDING 2021-05-06 2021-05-06 Patient Doctor JOE 1.2.840.114 [id number] Univers 00:00:00 00:00:00 Secure Msg Unassigned, BAKARI 350.1.13.10 ity of [place] [facility] 4.2.7.2.686 Demario as [id number] [address] 2021-05-01 2021-05-01 Outpatient Jeffrey ELI [facility] [id number] Univers 18:40:00 18:00:10 JOI ity [facility] 2021-05-01 2021-05-01 Kimani Eli [facility] 1.2.840.114 [id number] Univers 17:35:39 18:00:10 Care Joi HEALTH 350.1.13.10 it y of [place] 4.2.7.2.686 Demario as FARRUKH?BLEA [id number] [address] MEDICAL OFFICE BUILDING 2020-10-05 2020-10-05 Alyce Junior WA[facility]EXANDR 1.2.840.114 [id number] Univers 00:00:00 00:00:00 Health 350.1.13.10 it y of [place] [id number] [address] Office Building 2020-10-03 2020-10-03 Outpatient [facility] [id number] Univers 14:50:00 14:50:00 ity [facility] 2020-09-27 2020-09-27 Outpatient R ALYCE CROWDER [facility] [id number] Univers 10:30:00 10:30:00 ity [facility] 2020-09-27 2020-09-27 Telemedici Alyce Crowder [facility] 1.2.840.114 [id number] Univers 10:10:31 10:25:31 ne Visit Health [id number] [id number] [id number] [address] Office Building 2020-09-12 2020-09-12 Outpatient JT [facility] [id number] Univers 14:50:00 14:50:00 [place] ity [facility] 2020-09-08 2020-09-08 [facility] [id number] Univers 00:00:00 00:00:00 Outreach Broderick [facility] [id number] i ty [id number] [id number] [place] [address] 2020-06-28 2020-06-28 Office Alyce Crowder [facility] 1.2.840.114 [id number] Univers 10:39:43 12:07:26 Visit Health [id number] [id number] [phone] [address] Office Building 2020-06-28 2020-06-28 Outpatient R ALYCE CROWDER [facility] [id number] Univers 09:45:00 [facility]45[facility] 2020-06-06 Outpatient R PARAG [facility] [id number] Univers 13:15:00 13:15:00 [facility] 2020-06-06 2020-06-06 Telephone Kristen [facility] [id number] Univers 00:00:00 00:00:00 Marta Darling [id number] ity [place] [phone] [place] dical nal 204 [facility] 2020-06-02 2020-06-02 Hospital Alyce Crowder [facility] 1.2.840.114 [id number] Univers 13:00:00 23:59:00 Juanpablo Darling 350.1.13.10 it[place] [phone] [facility] [address] 2020-06-02 2020-06-02 Outpatient R VELALYCE [facility] [id number] Univers 00:00:00 00:00:00 ity of [facility] 2020-06-02 2020-06-02 Orders Doctor JOE 1.2.840.114 [id number] Univers 00:00:00 00:00:00 Only Unassigned, BAKARI 350.1.13.10 ity of [place] [facility] 4.2.7.2.686 Demario as [phone] [facility] [address] 2020-05-24 2020-05-24 Office Alyce Crowder [facility] 1.2.840.114 [id number] Univers 14:06:23 15:32:37 Visit Health 350.1.13.10 [place] [phone] [address] Office Building 2020-05-24 2020-05-24 Outpatient R ALYCE CROWDER [facility] [id number] Univers 13:30:00 13:30:00 ity of [facility] 2020-05-23 2020-05-23 Telephone Gramm, [facility] 1..989.101 [id number] Univers 00:00:00 00:00:00 Marta Whitney Juan 350.1.13.10 [place] [phone] Nj dical [facility] [address] 2020-05-18 2020-05-18 Outpatient R [facility] [id number] Univers 11:15:00 11:15:00 ity of [facility] 2020-05-18 2020-05-18 Laboratory Only, Adc Test [facility] 1.2.840. 114 [id number] Univers 10:46:05 11:01:05 Only Jennifer Tuttle 350.1.13.10 [place] [phone] [facility] [address] [place] 2020-05-18 2020-05-18 Laboratory Only, Adc [facility] 1.2.840.114 [id number] 10:46:05 11:01:05 Only Test Juan 350.1.13.10 [place] 4.2.7.2.686 Wanda [phone] 353 2020-05-18 2020-05-18 Orders Doctor JOE 1.2.840.114 [id number] Univers 00:00:00 00:00:00 Only Unassigned, BAKARI 350.1.13.10 ity of [place] [facility] 4.2.7.2.686 Demario as [phone] [address] 2020-05-18 2020-05-18 Orders Doctor DIAZ 1.2.840.114 [id number] 00:00:00 00:00:00 Only Unassigned, BAKARI 350.1.13.10 [place] [facility] 4.2.7.2.686 [phone] [facility] 2020-05-12 2020-05-12 [facility] 1.2.148.844 [id number] [facility] 09:55:12 10:51:13 Visit Jennifer Darling 350.1.13.10 i ty of [place] [phone] Nj dical [address] 2020-05-12 2020-05-12 Office [facility] 1.2.282.730 [id number] 09:55:12 10:51:13 Visit Jennifer Darling 350.1.13.10 [place] 4.2.7.2.686 Professio [phone] [address] 2020-05-12 2020-05-12 Outpatient R PARAG [facility] [id number] Univers 10:00:00 10:00:00 JENNIFER alonsoausten of [facility] 2020-05-12 2020-05-12 Telephone Alyce Crowder [facility] 1.2.840.114 [id number] Univers 00:00:00 00:00:00 Health 350.1.13.10 [place] [phone] [address] Office Building 2020-05-12 2020-05-12 Orders Doctor DIAZ 1.2.840.114 [id number] Univers 00:00:00 00:00:00 Only Unassigned, BAKARI 350.1.13.10 ity of [place] [facility] 4.2.7.2.686 Demario as [phone] [address] 2020-05-12 2020-05-12 Prep For Kristen [facility] 1.2.840.114 [id number] Univers 00:00:00 00:00:00 Surgery Marta Greenton 350.1.13.10 it[place] [phone] [place] dical nal [address] 2020-05-12 2020-05-12 Telephone Alyce Crowder [facility] 1.2.840.114 [id number] 00:00:00 00:00:00 Health 350.1.13.10 [place] 4.2.7.2.686 [place] [phone] Medical [address] 2020-04-12 2020-04-12 Orders Doctor JOE 1.2.840.114 [id number] Univers 00:00:00 00:00:00 Only Unassigned, BAKARI 350.1.13.10 ity of [place] [facility] 4.2.7.2.686 Demario as [phone] [address] 2017-10-29 2017-10-29 Emergency X ANGELA III, [facility] ERT [id number] Univers 13:16:05 15:09:00 GEORGINA espinoza [facility] Results Test Description Test Time Test Comments Results Result Comments Source BASIC METABOLIC PANEL (NA, K, CL, CO2, GLUCOSE, BUN, 2023-03 10:40:45 CREATININE, [place]) Test Item Value Reference Range Interpretation Comme nts NA (test code = 7688078474) 137 mmol/L 135-145 K (test code = 5818560140) 3.4 mmol/L 3.5-5.0 L CL (test code = 8931517241) 108 mmol/L 98-108 CO2 TOTAL (test code = 6475621609) 28 mmol/L 23-31 AGAP (test code = 9336923213) 1 2-16 L BUN (test code = 0543844841) 10 mg/dL 7-23 GLUCOSE (test code = 2780001324) 77 mg/dL 70-110 CREATININE (test code = 0.70 mg/dL 0.50-1.04 5578285663) CALCIUM (test code = 4050617598) 7.3 mg/dL 8.6-10.6 L eGFR (test code = 6875916510) 89.3 mL/min/1.73m2 DOMINIQUE (test code = DOMINIQUE) Association of Glomerular Filtration Rate (GFR) and Staging of Kidney Disease* + +-------- + ------+| GFR (mL/min/1.73 m2) ?| With Kidney Damage ?| ?Without Kidney Damage+ +-- + +| ?>90 ?| ?Stage one ?| ? Normal ?+ +------- + -------+| ?60-89 ?| ?Stage two ?| ? Decreased GFR ? + +-------- + ------+| ?30-59 ?| ?Stage three ?| ? Stage three ? + +-------- + ------+| ?15-29 ?| ?Stage four ? | ? Stage four ?+ +------- + -------+| ?<15 (or dialysis) ? ?| ?Stage five ? | ? Stage five ?+ +------- + -------+ *Each stage assumes the associated GFR level has been in effect for at least three months. ?Stages 1 to 5, with or without kidney disease, indicate chronic kidney disease. Notes: Determination of stages one and two (with eGFR >59mL/min/1.73 m2) requires estimation of kidney damage for at least three months as defined by structural or functional abnormalities of the kidney, manifested by either:Pathological abnormalities or Markers of kidney damage (including abnormalities in the composition of the blood or urine or abnormalities in imaging tests). Lab Interpretation (test code = Abnormal 76684-5) [facility]13 10:40:45 Test Item Value Reference Range Interpretation Comments MAGNESIUM (test code = 3689587650) 1.9 mg/dL 1.7-2.4 Lab Interpretation (test code = Normal 37300-1) [facility]23-[facility]-12 19:46:44 Test Item Value Reference Range Interpretation Comments FOLATE SER (test code = 6.3 ng/mL 3.0-20.0 Slig ht hemolysis 3918116436) Lab Interpretation (test Normal code = 91416-7) [facility]2023-10-12 16:48:46 Test Item Value Reference Range Interpretation Comments PALB (test code = 67037-4) 10.4 mg/dL 18.0-45.0 L Lab Interpretation (test code = Abnormal 66008-5) [facility] METABOLIC PANEL (NA, K, CL, CO2, GLUCOSE, BUN, CREATININE, CA)2023-04-04 11:46:53 Test Item Value Reference Range Interpretation Comments NA (test code = 136 mmol/L 135-145 8167101640) K (test code = 3.7 mmol/L 3.5-5.0 Slight 3373113877) hemolysis CL (test code = 109 mmol/L 98-108 H 1089604333) CO2 TOTAL (test code 24 mmol/L 23-31 = 1033931397) AGAP (test code = 3 2-16 7814203024) BUN (test code = 9 mg/dL 7-23 Slight 4906871428) hemolysis GLUCOSE (test code = 72 mg/dL 70-110 8662630666) CREATININE (test code 0.64 mg/dL 0.50-1.04 = 9470921656) CALCIUM (test code = 7.0 mg/dL 8.6-10.6 L 0823327495) eGFR (test code = 99.0 mL/min/1.73m2 8008133499) DOMINIQUE (test code = DOMINIQUE) Association of Glomerular Filtration Rate (GFR) and Staging of Kidney Disease* + -----+ --------+ +| GFR (mL/min/1.73 m2) ?| With Kidney Damage ?| ?Without Kidney Damage+ +------- +---- --+| ?>90 ?| ?Stage one ?| ? Normal ?+ ------+ ---------+--------- +| ?60-89 ?| ?Stage two ?| ? Decreased GFR ? + -----+ --------+ +| ?30-59 ?| ?Stage three ?| ? Stage three ? + -----+ --------+ +| ?15-29 ?| ?Stage four ? | ? Stage four ?+ ------+ ---------+--------- +| ?<15 (or dialysis) ? ?| ?Stage five ? | ? Stage five ?+ ------+ ---------+--------- + *Each stage assumes the associated GFR level has been in effect for at least three months. ?Stages 1 to 5, with or without kidney disease, indicate chronic kidney disease. Notes: Determination of stages one and two (with eGFR >59mL/min/1.73 m2) requires estimation of kidney damage for at least three months as defined by structural or functional abnormalities of the kidney, manifested by either:Pathological abnormalities or Markers of kidney damage (including abnormalities in the composition of the blood or urine or abnormalities in imaging tests). Lab Interpretation Abnormal (test code = 18096-7) [facility]2023-[facility]-12 11:46:53 Test Item Value Reference Range Interpretation Comments MAGNESIUM (test code = 6571766509) 1.8 mg/dL 1.7-2.4 Lab Interpretation (test code = Normal 24568-7) [facility] WITH [id number] 11:10:09 Test Item Value Reference Range Interpretation Comments WBC (test code = 5.06 See_Comment [Automated 6690-2) message] The sy stem which generated this result transmitted reference range : 4.30 - 11.10 10*3/?L. The reference range was not used to interpret this result as normal/abnormal . RBC (test code = 2.46 See_Comment L [Automated 789-8) message] The sy stem which generated this result transmitted reference range : 3.93 - 5.25 10*6/?L. The reference range was not used to interpret this result as normal/abnormal . HGB (test code = 9.4 g/dL 11.6-15.0 L 718-7) HCT (test code = 28.7 % 35.7-45.2 L 4544-3) MCV (test code = 116.7 fL 80.6-95.5 H 787-2) MCH (test code = 38.2 pg 25.9-32.8 H 785-6) MCHC (test code = 32.8 g/dL 31.6-35.1 786-4) RDW-SD (test code = 83.1 fL 39.0-49.9 H 02074-7) RDW-CV (test code = 19.8 % 12.0-15.5 H 788-0) PLT (test code = 226 See_Comment [Automated 777-3) message] The sy stem which generated this result transmitted reference range : 166 - 358 10*3/ ?L. The reference r jaren was not used to interpret this result as normal/abnormal . MPV (test code = 9.9 fL 9.5-12.9 82926-1) NRBC/100 WBC (test 0.0 See_Comment [Automat ed code = 2606980505) message] The system which generated this result transmitted reference range : 0.0 - 10.0 /100 WBCs. The refer ence range was not u sed to interpret th is result as normal/abnormal . NRBC x10^3 (test code See_Comment [Auto mated = 8057106913) message] The s ystem which generated this result transmitted reference range : 10*3/?L. The reference range was not used to interpret this result as normal/abnormal . GRAN MAT (NEUT) % 46.0 % (test code = 770-8) IMM GRAN % (test code 0.60 % = 6957888020) LYMPH % (test code = 28.1 % 736-9) MONO % (test code = 14.0 % 5905-5) EOS % (test code = 10.5 % 713-8) BASO % (test code = 0.8 % 706-2) GRAN MAT x10^3(ANC) 2.33 10*3/uL 1.88-7.09 (test code = 6840038588) IMM GRAN x10^3 (test 0.03 10*3/uL 0.00-0.06 code = 9262434935) LYMPH x10^3 (test code 1.42 10*3/uL 1.32-3.29 = 731-0) MONO x10^3 (test code 0.71 10*3/uL 0.33-0.92 = 742-7) EOS x10^3 (test code = 0.53 10*3/uL 0.03-0.39 H 711-2) BASO x10^3 (test code 0.04 10*3/uL 0.01-0.07 = 704-7) Lab Interpretation Abnormal (test code = 00952-1) [facility] ANTIBODY [id number] 23:04:30 Test Item Value Reference Range Interpretation Comments THIAGO (test code = Positive Negative A 8540165921) DOMINIQUE (test code = DOMINIQUE) Negative: ?No Anti-Nuclear Antibodies detected by IFA. Positive: ?THIAGO IFA screen performed with a 1:80 dilution in adults and a 1:40 dilution in pediatrics. ?A titer is performed and reported separately when the THIAGO is "Positive" or when "Cytoplasmic staining is observed." Lab Interpretation (test Abnormal code = 92153-4) [facility] [id number] 15:24:06 Test Item Value Reference Range Interpretation Comments C4 (test code = 4751166286) 25 mg/dL 20-59 Lab Interpretation (test code = Normal 43115-0) [facility] [id number] 15:24:05 Test Item Value Reference Range Interpretation Comments C3 (test code = 8731962393) 74 mg/dL 86-184 L Lab Interpretation (test code = Abnormal 38036-4) [facility] ArlingtonSYPHILIS [id number] 14:56:38 Test Item Value Reference Range Interpretation Comments Syphilis IgG/IgM (test Non-reactive Non-reactive code = 56146-4) DOMINIQUE (test code = DOMINIQUE) Non-reactive - No serologic evidence of T. pallidum infection. Cannot exclude incubating or early syphilis. Submit a second specimen in 2-4 weeks if syphilis is clinically suspected. Equivocal - Further testing to follow. Reactive - Further testing to follow. Lab Interpretation (test Normal code = 78855-1) [facility] ANTIBODY (IGM & IGG)2023-04-03 14:07:51 Test Item Value Reference Range Interpretation Comments HBC (test code = 4737699775) Negative HBC Semi-Quantitative (test code = 3.30 9023785093) [facility] ArlingtonHCV [id number] 14:07:50 Test Item Value Reference Range Interpretation Comments HCV Ab (test code = 66118-8) Negative HCV Semi-Quantitative (test code = 0.05 35216-9) [facility] ArlingtonLactic Acid Whole [id number] 12:29:13 Test Item Value Reference Range Interpretation Comments LACTIC ACID (test code = 1.43 mmol/L 0.50-2.20 QUE S 1926525149) Lab Interpretation (test code = Normal 63613-0) [facility] ArlingtonLIPID PANEL (62380)(TOTAL CHOLESTEROL, TRIGLYCERIDES, HDL)2023-04-03 06:15:22 Test Item Value Reference Range Interpretation Comments CHOL (test code = 7251279833) 88 mg/dL 120-200 L HDL (test code = 2104352708) 34 mg/dL >=50 L HDLC RATIO (test code = 9699351461) 2.6 <=4.5 TRIG (test code = 1013834988) 123 mg/dL 30-170 LDL CHOL (test code = 28071-0) 29 mg/dL <=160 VLDL (test code = 4826669788) 25 mg/dL 5-60 Lab Interpretation (test code = Abnormal 88678-4) [facility] ArlingtonLadeic Acid Whole [id number] 04:00:34 Test Item Value Reference Range Interpretation Comments LACTIC ACID (test code = 2.62 mmol/L 0.50-2.20 H 4935587906) Lab Interpretation (test code = Abnormal 71309-5) [facility] GLUCOSE (AUTOMATED)2023-03-31 12:09:51 Test Item Value Reference Range Interpretation Comments POCT GLU (test code = 9894142608) 113 mg/dL 70-110 H Lab Interpretation (test code = Abnormal 19422-1) [facility] GLUCOSE (AUTOMATED)2023-03-31 10:44:53 Test Item Value Reference Range Interpretation Comments POCT GLU (test code = 3142255689) 67 mg/dL 70-110 L Lab Interpretation (test code = Abnormal 63885-8) [facility] WITH [id number] 09:16:10 Test Item Value Reference Range Interpretation Comments WBC (test code = 12.00 See_Comment H [Automated 6390-2) message] The sy stem which generated this result transmitted reference range : 4.30 - 11.10 10*3/?L. The reference range was not used to interpret this result as normal/abnormal . RBC (test code = 2.83 See_Comment L [Automated 789-8) message] The sy stem which generated this result transmitted reference range : 3.93 - 5.25 10*6/?L. The reference range was not used to interpret this result as normal/abnormal . HGB (test code = 10.7 g/dL 11.6-15.0 L 718-7) HCT (test code = 32.5 % 35.7-45.2 L 4544-3) MCV (test code = 114.8 fL 80.6-95.5 H 787-2) MCH (test code = 37.8 pg 25.9-32.8 H 785-6) MCHC (test code = 32.9 g/dL 31.6-35.1 786-4) RDW-SD (test code = 88.5 fL 39.0-49.9 H 31493-8) RDW-CV (test code = 20.8 % 12.0-15.5 H 788-0) PLT (test code = 453 See_Comment H [Automated 777-3) message] The sy stem which generated this result transmitted reference range : 166 - 358 10*3/ ?L. The reference r jaren was not used to interpret this result as normal/abnormal . MPV (test code = 9.6 fL 9.5-12.9 56185-5) NRBC/100 WBC (test 0.0 See_Comment [Automat ed code = 0786101479) message] The system which generated this result transmitted reference range : 0.0 - 10.0 /100 WBCs. The refer ence range was not u sed to interpret th is result as normal/abnormal . NRBC x10^3 (test code See_Comment [Auto mated = 8559068762) message] The s ystem which generated this result transmitted reference range : 10*3/?L. The reference range was not used to interpret this result as normal/abnormal . GRAN MAT (NEUT) % 72.7 % (test code = 770-8) IMM GRAN % (test code 0.80 % = 4877117682) LYMPH % (test code = 18.7 % 736-9) MONO % (test code = 6.0 % 5905-5) EOS % (test code = 1.4 % 713-8) BASO % (test code = 0.4 % 706-2) GRAN MAT x10^3(ANC) 8.72 10*3/uL 1.88-7.09 H (test code = 6245795803) IMM GRAN x10^3 (test 0.10 10*3/uL 0.00-0.06 H code = 1710960592) LYMPH x10^3 (test code 2.24 10*3/uL 1.32-3.29 = 731-0) MONO x10^3 (test code 0.72 10*3/uL 0.33-0.92 = 742-7) EOS x10^3 (test code = 0.17 10*3/uL 0.03-0.39 711-2) BASO x10^3 (test code 0.05 10*3/uL 0.01-0.07 = 704-7) Lab Interpretation Abnormal (test code = 10402-9) [facility]MINAL [id number] 09:13:13 Test Item Value Reference Range Interpretation Comments NT-proBNP (test code = 1740 pg/mL <=125 H 97121-5) DOMINIQUE (test code = DOMINIQUE) Positive: Heart Failure Likely Lab Interpretation (test Abnormal code = 92936-2) [facility]2023-10-08 08:58:29 Test Item Value Reference Range Interpretation Comments MAGNESIUM (test code = 3623403939) 2.0 mg/dL 1.7-2.4 Lab Interpretation (test code = Normal 20940-9) [facility]COMP[facility] METABOLIC PANEL (74464)2023-03-31 08:58:09 Test Item Value Reference Range Interpretation Comments NA (test code = 140 mmol/L 135-145 6206420575) K (test code = 3.8 mmol/L 3.5-5.0 9782868195) CL (test code = 105 mmol/L 98-108 2920157579) CO2 TOTAL (test code = 24 mmol/L 23-31 6935204219) AGAP (test code = 11 2-16 8718970458) BUN (test code = 14 mg/dL 7-23 0394449381) GLUCOSE (test code = 69 mg/dL 70-110 L 5325733111) CREATININE (test code = 1.50 mg/dL 0.50-1.04 H 8004350753) TOTAL BILI (test code = 1.4 mg/dL 0.1-1.1 H 1099610455) CALCIUM (test code = 8.2 mg/dL 8.6-10.6 L 8749942322) T PROTEIN (test code = 6.6 g/dL 6.3-8.2 9739199767) ALBUMIN (test code = 2.6 g/dL 3.5-5.0 L 7525790240) ALK PHOS (test code = 240 U/L 34-122 H 2340512111) ALTv (test code = 54 U/L 5-35 H 1742-6) AST(SGOT) (test code = 41 U/L 13-40 H 6530762896) eGFR (test code = 37.1 mL/min/1.73m2 3237090108) DOMINIQUE (test code = DOMINIQUE) Association of Glomerular Filtration Rate (GFR) and Staging of Kidney Disease* + --+ --+ ------+| GFR (mL/min/1.73 m2) ?| With Kidney Damage ?| ?Without Kidney Damage+ --------+ --------+ +| ?>90 ?| ?Stage one ?| ? Normal ?+ ---+ ---+ -------+| ?60-89 ?| ?Stage two ?| ? Decreased GFR ? + --+ --+ ------+| ?30-59 ?| ?Stage three ?| ? Stage three ? + --+ --+ ------+| ?15-29 ?| ?Stage four ? | ? Stage four ?+ ---+ ---+ -------+| ?<15 (or dialysis) ? ?| ?Stage five ? | ? Stage five ?+ ---+ ---+ -------+ *Each stage assumes the associated GFR level has been in effect for at least three months. ?Stages 1 to 5, with or without kidney disease, indicate chronic kidney disease. Notes: Determination of stages one and two (with eGFR >59mL/min/1.73 m2) requires estimation of kidney damage for at least three months as defined by structural or functional abnormalities of the kidney, manifested by either:Pathological abnormalities or Markers of kidney damage (including abnormalities in the composition of the blood or urine or abnormalities in imaging tests). Lab Interpretation Abnormal (test code = 98073-4) [facility] (TTE)2023-03-28 18:36:00 Test Item Value Reference Range Interpretation Comments Height (test code = 67 in 0829185365) Weight (test code = 216 lbs 1595170921) Systolic BP (test code 153 mmHg = 6557676111) Diastolic BP (test code 88 mmHg = 5988839758) Heart Rate (test code = 98 bpm 9061372365) LVOT stroke volume 73.70 cm3 (test code = 5331212637) EF(Teich) (test code = 67.10 % 1802013755) LVIDD (test code = 4.50 cm 5388975209) LVIDS (test code = 2.80 cm 6704205472) Left Ventricular End 30.0 mL Systolic Volume by Teichholz Method (test code = 2450450) Left Ventricular End 91.3 mL Diastolic Volume by Teichholz Method (test code = 1011203) IVS (test code = 0.95 cm 7882371114) LVPWD (test code = 0.92 cm 5543613089) LVOT diameter (test 2.07 cm code = 2642614815) LVOT area (test code = 3.40 cm2 0541545665) FS (test code = 37 % 7215722273) MV Peak E Ian (test 154.2 cm/s code = 9770849992) MV Peak A Ian (test 140.2 cm/s code = 1747145671) E/A ratio (test code = 1.10 ratio 9029897657) E wave decelartion time 0.16 s (test code = 5160670159) MV E/e' septal (test 12.9 cm/s code = 9739094810) LA volume (BP) (test 61.7 mL code = 4569983227) LVOT peak ian (test 126.1 cm/s code = 9245071841) LVOT mn grad (test code 3.2 mmHg = 2594477959) Left Ventricular 7.6 L/min Cardiac Output (test code = 3546810) LA size (test code = 4.3 cm 7786902914) LAV(MOD-sp2) (test code 59.70 mL = 8983260766) LAV(MOD-sp4) (test code 61.00 mL = 4779961039) Tapse (test code = 2.7 cm 3774775410) AV LVOT peak gradient 6.4 mmHg (test code = 1567379120) LVOT peak VTI (test 21.9 cm code = 0477853627) Aortic HR (test code = 103.30 BPM 4669210240) LV V1 mean (test code = 82.10 cm/s 8266717171) MV Prop V (test code = 56.70 cm/s 9886515420) Ao root diam (test code 3.30 cm = 7904688287) Aortic root (test code 3.3 cm = 7035415188) Ao root annulus (test 3.3 cm code = 9500926686) PW (test code = 0.92 cm 0.6-1.8 4564758495) EF - 2D (test code = 67.10 % 70317058) Interventricular Septum 0.95 cm Diastolic Thickness by 2D (test code = 2772803) LA Volume Index (BP) 29.5 mL/m2 (test code = 2345340794) BSA (test code = 2.09 m2 4093719161) Radiology Study observation (narrative) (test code = 92877-1) DOMINIQUE (test code = DOMINIQUE) ?Left?Ventricle: Left ventricle size is normal. Normal wall thickness. Normal wall motion. No regional wall motion abnormalities. Hyperdynamic systolic function with a visually estimated EF of 75 - 80%. No intracavitary gradient. Normal diastolic function. ?Right?Ventricle: Right ventricle size is normal. Normal systolic function. ?Tricuspid?Valve: Tricuspid valve structure is normal. Trace transvalvular regurgitation. Insufficient tricuspid regurgitation jet to estimate RVSP . No stenosis. ?IVC/SVC: IVC diameter is less than or equal to 21 mm and decreases greater than 50% during inspiration; therefore the estimated right atrial pressure is normal (~0-5 mmHg). ?Left?Atrium: Left atrium size is normal. Left atrium volume index is 29.5 mL/m2. Left VentricleLeft ventricle size is normal. Normal wall thickness. Normal wall motion. No regional wall motion abnormalities. Hyperdynamic systolic function with a visually estimated EF of 75 - 80%. No intracavitary gradient. Normal diastolic function.Right VentricleRight ventricle size is normal. Normal systolic function.Left AtriumLeft atrium size is normal. Left atrium volume index is 29.5 mL/m2.Right AtriumRight atrium size is normal.IVC/SVCIVC diameter is less than or equal to 21 mm and decreases greater than 50% during inspiration; therefore the estimated right atrial pressure is normal (~0-5 mmHg).Mitral ValveMitral valve structure is normal. No transvalvular regurgitation. No stenosis.Tricuspid ValveTricuspid valve structure is normal. Trace transvalvular regurgitation. Insufficient tricuspid regurgitation jet to estimate RVSP . No stenosis.Aortic ValveTricuspid. No transvalvular regurgitation. No hemodynamically significant .Pulmonic ValveNot well visualized. No transvalvular regurgitation. No stenosis.Ascending AortaNormal sized sinus of Valsalva.PericardiumTr ivial pericardial effusion present. No indication of cardiac tamponade.Study DetailsStudy quality was adequate. A complete echocardiogram was performed using 2D, color flow Doppler and spectral Doppler. [facility] GLU[facility] (AUTOMATED)2023-03-28 04:58:22 Test Item Value Reference Range Interpretation Comments POCT GLU (test code = 8423226051) 94 mg/dL 70-110 Lab Interpretation (test code = Normal 51132-8) [facility] 13:17:02 Test Item Value Reference Range Interpretation Comments MAGNESIUM (test code = 1.9 mg/dL 1.7-2.4 Sligh t hemolysis 1846271957) Lab Interpretation (test Normal code = 47789-9) [facility] [id number] 03:50:28 Test Item Value Reference Range Interpretation Comments TROPONIN I (test code = 0.003 ng/mL <=0.034 0065633545) DOMINIQUE (test code = DOMINIQUE) Reference (Normal) Range (defined by the 99th percentile reference limit): <= 0.034 ng/mL Note: Cardiac troponin begins to rise 3-4 hours after the onset of ischemia. Repeat in 4-6 hours if the sample was drawn within 3-4 hours of the onset of the symptom and found normal. Diagnosis of myocardial injury is made with acute changes in cTn concentrations with at least one serial sample above the 99th percentile upper reference limit (URL), taken together with the patient's clinical presentation. Biotin has been reported to cause a negative bias, interpret results relative to patient's use of biotin. Lab Interpretation Normal (test code = 26071-3) [facility]. METABOLIC PANEL (13071)2023-03-27 03:43:35 Test Item Value Reference Range Interpretation Comments NA (test code = 137 mmol/L 135-145 9404275000) K (test code = 2.5 mmol/L 3.5-5.0 LL 6112760881) CL (test code = 99 mmol/L 98-108 1186719720) CO2 TOTAL (test code = 29 mmol/L 23-31 9611807928) AGAP (test code = 9 2-16 9481712530) BUN (test code = 15 mg/dL 7-23 9415819178) GLUCOSE (test code = 101 mg/dL 70-110 4738439518) CREATININE (test code = 1.02 mg/dL 0.50-1.04 5637456678) TOTAL BILI (test code = 1.6 mg/dL 0.1-1.1 H 6438655475) CALCIUM (test code = 7.9 mg/dL 8.6-10.6 L 4161840756) T PROTEIN (test code = 6.5 g/dL 6.3-8.2 0714105217) ALBUMIN (test code = 2.6 g/dL 3.5-5.0 L 8428110785) ALK PHOS (test code = 249 U/L 34-122 H 6311096164) ALTv (test code = 80 U/L 5-35 H 1742-6) AST(SGOT) (test code = 78 U/L 13-40 H 6217705128) eGFR (test code = 57.8 mL/min/1.73m2 2383351606) DOMINIQUE (test code = DOMINIQUE) Association of Glomerular Filtration Rate (GFR) and Staging of Kidney Disease* + --+ --+ ------+| GFR (mL/min/1.73 m2) ?| With Kidney Damage ?| ?Without Kidney Damage+ --------+ --------+ +| ?>90 ?| ?Stage one ?| ? Normal ?+ ---+ ---+ -------+| ?60-89 ?| ?Stage two ?| ? Decreased GFR ? + --+ --+ ------+| ?30-59 ?| ?Stage three ?| ? Stage three ? + --+ --+ ------+| ?15-29 ?| ?Stage four ? | ? Stage four ?+ ---+ ---+ -------+| ?<15 (or dialysis) ? ?| ?Stage five ? | ? Stage five ?+ ---+ ---+ -------+ *Each stage assumes the associated GFR level has been in effect for at least three months. ?Stages 1 to 5, with or without kidney disease, indicate chronic kidney disease. Notes: Determination of stages one and two (with eGFR >59mL/min/1.73 m2) requires estimation of kidney damage for at least three months as defined by structural or functional abnormalities of the kidney, manifested by either:Pathological abnormalities or Markers of kidney damage (including abnormalities in the composition of the blood or urine or abnormalities in imaging tests). Lab Interpretation Abnormal (test code = 83052-3) [facility]20[facility] 03:39:03 Test Item Value Reference Range Interpretation Comments LIPASE (test code = 5755503246) 25 U/L 0-220 Lab Interpretation (test code = Normal 81459-7) [facility] WITH [id number] 03:23:44 Test Item Value Reference Range Interpretation Comments WBC (test code = 13.73 See_Comment H [Automated 6690-2) message] The system which generated this result transmit nanette reference range : 4.30 - 11.10 10*3/?L. The reference range was not used to interpret this result as normal/abnormal . RBC (test code = 3.25 See_Comment L [Automated 489-8) message] The system which generated this result transmit nanette reference range : 3.93 - 5.25 10*6/?L. The reference range was not used to interpret this result as normal/abnormal . HGB (test code = 11.8 g/dL 11.6-15.0 718-7) HCT (test code = 34.1 % 35.7-45.2 L 4544-3) MCV (test code = 104.9 fL 80.6-95.5 H 787-2) MCH (test code = 36.3 pg 25.9-32.8 H 785-6) MCHC (test code = 34.6 g/dL 31.6-35.1 786-4) RDW-SD (test code = 61.8 fL 39.0-49.9 H 55064-5) RDW-CV (test code = 17.9 % 12.0-15.5 H 788-0) PLT (test code = 634 See_Comment H [Automated 777-3) message] The system which generated this result transmit nanette reference range : 166 - 358 10*3/ ?L. The reference range was not u sed to interpret th is result as normal/abnormal . MPV (test code = 9.2 fL 9.5-12.9 L 34096-1) NRBC/100 WBC (test 0.1 See_Comment [Automat ed code = 9719658467) message] The system which generated this result transmit nanette reference range : 0.0 - 10.0 /100 WBCs. The reference range was not used to interpret this result as normal/abnormal . NRBC x10^3 (test code 0.02 See_Comment [Auto mated = 2846191108) message] The system which generated this result transmit nanette reference range : 10*3/?L. The reference range was not used to interpret this result as normal/abnormal . GRAN MAT (NEUT) % 84.8 % (test code = 770-8) IMM GRAN % (test code 0.80 % = 8928155052) LYMPH % (test code = 9.7 % 736-9) MONO % (test code = 4.2 % 5905-5) EOS % (test code = 0.3 % 713-8) BASO % (test code = 0.2 % 706-2) GRAN MAT x10^3(ANC) 11.65 10*3/uL 1.88-7.09 H (test code = 6510528793) IMM GRAN x10^3 (test 0.11 10*3/uL 0.00-0.06 H code = 7922954817) LYMPH x10^3 (test code 1.33 10*3/uL 1.32-3.29 = 731-0) MONO x10^3 (test code 0.57 10*3/uL 0.33-0.92 = 742-7) EOS x10^3 (test code = 0.04 10*3/uL 0.03-0.39 711-2) BASO x10^3 (test code 0.03 10*3/uL 0.01-0.07 = 704-7) Lab Interpretation Abnormal (test code = 00792-3) [facility] [id number] 03:03:00 Test Item Value Reference Range Interpretation Comments POCT PREG (test code = 1605) Negative On board controls acceptable with Yes C Line (test code = 3574) POCT PREG LOT # (test code = 3575) [id number] POCT PREG TEST DATE (test 09-01-2024 code = 3576) Lab Interpretation (test code = Normal 95019-7) [facility]. METABOLIC PANEL (85259)2022-12-01 01:35:49 Test Item Value Reference Range Interpretation Comments NA (test code = 137 mmol/L 135-145 8135724297) K (test code = 3.7 mmol/L 3.5-5.0 7668968039) CL (test code = 102 mmol/L 98-108 5956392888) CO2 TOTAL (test code = 29 mmol/L 23-31 2608551407) AGAP (test code = 6 2-16 9999585065) BUN (test code = 15 mg/dL 7-23 8243041524) GLUCOSE (test code = 98 mg/dL 70-110 0709487569) CREATININE (test code = 0.57 mg/dL 0.50-1.04 9800228370) TOTAL BILI (test code = 0.6 mg/dL 0.1-1.4 3931616586) CALCIUM (test code = 9.3 mg/dL 8.6-10.6 2456148244) T PROTEIN (test code = 6.8 g/dL 6.3-8.2 1374447363) ALBUMIN (test code = 3.7 g/dL 3.5-5.0 6942395614) ALK PHOS (test code = 132 U/L 34-122 H 5262053158) ALTv (test code = 18 U/L 5-35 1742-6) AST(SGOT) (test code = 22 U/L 13-40 9125046906) eGFR (test code = 113.7 mL/min/1.73m2 9522997735) DOMINIQUE (test code = DOMINIQUE) Association of Glomerular Filtration Rate (GFR) and Staging of Kidney Disease* + --+ --+ ------+| GFR (mL/min/1.73 m2) ?| With Kidney Damage ?| ?Without Kidney Damage+ --------+ --------+ +| ?>90 ?| ?Stage one ?| ? Normal ?+ ---+ ---+ -------+| ?60-89 ?| ?Stage two ?| ? Decreased GFR ? + --+ --+ ------+| ?30-59 ?| ?Stage three ?| ? Stage three ? + --+ --+ ------+| ?15-29 ?| ?Stage four ? | ? Stage four ?+ ---+ ---+ -------+| ?<15 (or dialysis) ? ?| ?Stage five ? | ? Stage five ?+ ---+ ---+ -------+ *Each stage assumes the associated GFR level has been in effect for at least three months. ?Stages 1 to 5, with or without kidney disease, indicate chronic kidney disease. Notes: Determination of stages one and two (with eGFR >59mL/min/1.73 m2) requires estimation of kidney damage for at least three months as defined by structural or functional abnormalities of the kidney, manifested by either:Pathological abnormalities or Markers of kidney damage (including abnormalities in the composition of the blood or urine or abnormalities in imaging tests). Lab Interpretation Abnormal (test code = 60891-2) [facility]2023-[facility]-10 01:35:29 Test Item Value Reference Range Interpretation Comments LIPASE (test code = 9217887963) 55 U/L 0-220 Lab Interpretation (test code = Normal 92988-6) [facility] WITH [id number] 01:26:46 Test Item Value Reference Range Interpretation Comments WBC (test code = 13.26 See_Comment H [Automated 8890-2) message] The sy stem which generated this result transmitted reference range : 4.30 - 11.10 10*3/?L. The reference range was not used to interpret this result as normal/abnormal . RBC (test code = 3.83 See_Comment L [Automated 569-8) message] The sy stem which generated this result transmitted reference range : 3.93 - 5.25 10*6/?L. The reference range was not used to interpret this result as normal/abnormal . HGB (test code = 13.5 g/dL 11.6-15.0 718-7) HCT (test code = 39.4 % 35.7-45.2 4544-3) MCV (test code = 102.9 fL 80.6-95.5 H 787-2) MCH (test code = 35.2 pg 25.9-32.8 H 785-6) MCHC (test code = 34.3 g/dL 31.6-35.1 786-4) RDW-SD (test code = 47.8 fL 39.0-49.9 80095-2) RDW-CV (test code = 12.7 % 12.0-15.5 788-0) PLT (test code = 413 See_Comment H [Automated 777-3) message] The sy stem which generated this result transmitted reference range : 166 - 358 10*3/ ?L. The reference r jaren was not used to interpret this result as normal/abnormal . MPV (test code = 10.0 fL 9.5-12.9 23282-9) NRBC/100 WBC (test 0.0 See_Comment [Automat ed code = 9412909580) message] The system which generated this result transmitted reference range : 0.0 - 10.0 /100 WBCs. The refer ence range was not u sed to interpret th is result as normal/abnormal . NRBC x10^3 (test code See_Comment [Auto mated = 8380012161) message] The s ystem which generated this result transmitted reference range : 10*3/?L. The reference range was not used to interpret this result as normal/abnormal . GRAN MAT (NEUT) % 73.7 % (test code = 770-8) IMM GRAN % (test code 0.40 % = 5215232483) LYMPH % (test code = 18.3 % 736-9) MONO % (test code = 6.5 % 5905-5) EOS % (test code = 0.7 % 713-8) BASO % (test code = 0.4 % 706-2) GRAN MAT x10^3(ANC) 9.79 10*3/uL 1.88-7.09 H (test code = 8997692938) IMM GRAN x10^3 (test 0.05 10*3/uL 0.00-0.06 code = 4356287187) LYMPH x10^3 (test code 2.42 10*3/uL 1.32-3.29 = 731-0) MONO x10^3 (test code 0.86 10*3/uL 0.33-0.92 = 742-7) EOS x10^3 (test code = 0.09 10*3/uL 0.03-0.39 711-2) BASO x10^3 (test code 0.05 10*3/uL 0.01-0.07 = 704-7) Lab Interpretation Abnormal (test code = 02829-1) [facility]OMEN PELVIS WO [id number] 19:38:36CT Abdomen and Pelvis out intravenous contrast. CLINICAL HISTORY: History of spigelian hernia. DOSE:Up-to-date CT equipment and radiation dose reduction techniques wereemployed. CTDIvol: 14.94 mGy. DLP: 754 mGy-cm. TECHNIQUE : Contiguous axial imaging from the level of the lung basesthrough the pubicsymphysis were performed after the uncomplicatedadministration of Omnipaque contrast material. Coronal and sagittalreconstructions were obtained. Auto mA and/or iterative reconstruction wereused to reduce radiation dose. FINDINGS: Comparison is made with previous CT scan dated 07/17/2017. Lower lungs: Clear. No pleural effusion or pericardial effusion. Liver, Gallbladder and Spleen: Mild hepatomegaly.Liver is 19 cm in length.Spleen is 12.5 [...] Kidneys and Ureters: ?No visible calculi in therenal collecting systems. No hydroureter or hydronephrosis. Vessels: [...] herniated into its sac without any complications. [facility], Radiant Results Inft User - 06/02/2020 1:39 PM CSTCT Abdomen and Pelvis out intravenous contrast.CLINICAL HISTORY: History of spigelian hernia.DOSE: Up-to-date CT equipment and radiation dose reduction techniques wereemployed. CTDIvol: 14.94 mGy. DLP: 754 mGy-cm.TECHNIQUE : Contiguous axial imaging from the level of the lung basesthrough the pubic symphysis were performed after the uncomplicatedadministration of Omnipaque contrast material. Coronal and sag ittalreconstructions were obtained. Auto mA and/or iterative reconstruction wereused to reduce radiation dose.FINDINGS: Comparison is made with previous CT scan dated 07/17/2017.Lower lungs: Clear. No pleural effusion or pericardial effusion.Liver, Gallbladder and Spleen: Mild hepatomegaly. Liver is 19cm in length.Spleen is 12.5 x 4.5 cm. No gross pathology visualized in the liver or inthe spleen. Nocalcified gallstones. Biliary ducts and the pancreatic ductappear of normal size.Peritoneum: No freeair or free fluid. No lymphadenopathy.Pancreas and Adrenals: Unremarkable pancreas and right adrenal gland. Leftadrenal gland showed diffuse hypertrophy with possible 12 mm adenoma,consistent with incidental nonfunctioning benign adenoma.Kidneys and Ureters: No visible calculi in the renal collecting systems. No hydroureter or hydronephrosis. Vessels: Mild atherosclerosis of aorta and iliac arteries.R etroperitoneum: No abnormal fluid or lymphadenopathy.Bowel: No acute [...] ofdescending colon herniated into its sac without anycomplications.[facility] 2019-11-12 08:35:00 RUN DATE: 11/12/19 [facility] - LAB PAGE 1 RUN TIME: 0835 Specimen Inquiry RUN USER: INTERFACE -------- ----PATIENT: PAT MAI LOC: P5N POD B U #: [id number] AGE/SX: 44/F ROOM: [facility] RE11/09/19REG DR: Immanuel Villatoro MD : 75 BED: 1 DIS: 11/10/19 STATUS: DIS IN TLOC: SPEC #: [id number]: 11/09/19 STATUS: APOORVA MARIE #: [id number] ILIANA: 11/09/[address] [facility] [address]: Immanuel Villatoro MD ENTERED: 11/09/19 [...] stain demonstrates mild fibrous expansion of some portaltracts. The findings support the morphologic interpretation. Clinical correlation is recommended. FINAL DIAGNOSIS A-LIVER, WEDGE BIOPSY: - Mild steatosis. -See comment. GROSS DESCRIPTION A-LIVER BIOPSY: A piece of cade tissue which measures 1.5 x 0.7 x 0.7 cm. The specimen is sectioned and submitted in its entirety in a single cassette. /th MICROSCOPIC DESCRIPTION Microscopic performed. CONTINUED ON NEXT PAGE RUN DATE: 11/12/19 [facility] - LAB PAGE 2 RUN TIME: 0835 Specimen Inquiry RUN USER: INTERFACE SPEC #: [id number] PATIENT: PAUPATKATIE GARCIAEE #[id number] (Continued) Signed SIGNATURE ON Kathy Banda MD 11/12/19 0835 END OF REPORT [id number] 07:06:00 Test Item Value Reference Range Interpretation Comments MAGNESIUM (test code = MAG) 1.6 mg/dL 1.4-2.6 N [id number] 07:06:00 Test Item Value Reference Range Interpretation Comments PHOSPHOROUS (test code = PHOS) 2.6 mg/dL 2.7-4.5 L BASIC METABOLIC [id number] 07:06:00 Test Item Value Reference Range Interpretation [...] mg/dL 8.8-10.2 N = CA) CBC W/AUTO [id number] 06:34:00 Test Item Value Reference Range Interpretation [...] 0.03 x10 3/uL 0.0-0.20 N COMPREHENSIVE METABOLIC [id number] 14:08:00 Test Item Value Reference Range Interpretation [...] N PHOSPHATASE (test code = ALKP) PROTHROMBIN [id number] 13:33:00 Test Item Value Reference Range Interpretation [...] 2.5-3.5recurren t systemic emboli sm. THROMBOPLASTIN TIME [id number] 13:33:00 Test Item Value Reference Range Interpretation Comments THROMBOPLASTIN TIME 39.4 SECONDS 26.0-35.9 H INTERPRE TATIVE PARTIAL (test code = : erapeutic PTT) range: Unfractionated heparin:47 - 71 seconds Argatroban:1.5 to 3 times the basel ine PTT CBC W/AUTO [id number] 13:28:00 Test Item Value Reference Range Interpretation [...] BA#) 0.07 x10 3/uL 0.0-0.20 N SURGICAL [id number] 06:57:00 RUN DATE: 11/03/19 [facility] - LAB PAGE 1 RUN TIME: 656 Specimen Inquiry RUN USER: INTERFACE -------- ----PATIENT: PAT MAI LOC: CADE U #: [id number] AGE/SX: 44/F ROOM: RE10/30/19[facility] DR: Immanuel Villatoro MD : 75 BED: DIS: STATUS: [facility] TLOC: SPEC #: [id number] RECD: 10/30/19 STATUS: APOORVA RE #: [id number] ILIANA: 10/30/[address] [facility] [address]: Immanuel Vilaltoro MD ENTERED: 10/30/19 SP TYPE: SURG OTHR [...] DESCRIPTION Microscopic performed. Signed SIGNATURE ON ZAK AndrewKathy Whitney MD 11/03/19 0657 END OF REPORT Coronavirus 2018 [id number] 13:25:00 Test Item Value Reference Range Interpretation Comments Coronavirus 2019 n[facility] Bedside (test Negative NEGATIVE code = [id number])
[2023-05-05 03:43] LABS: Absolute Lymphocytes (CBC) 0.4 K/uL (0.7-4.9); Hematocrit 31.8 % (36.0-45.0); Lymphocytes % 6.1 % (15.3-44.8); MCV 123.8 fL (80-100); MPV 7.9 fL (7.6-11.3); Platelets 325 thou/uL (152-406); RBC Red Blood Cell Count 2.57 M/uL (3.86-4.86)
[2023-05-05 03:50] LABS: Protime INR 1.29
[2023-05-05 04:02] LABS: Albumin 1.2 g/dL (3.4-5.0); Bilirubin Total 1.5 mg/dL (0.2-1.0); Potassium 3.6 mEq/L (3.5-5.1); Protein, Total 5.2 g/dL (6.4-8.2)
[2023-05-05 04:18] LABS: Anisocytosis 1+; Blood Morphology Comment NOTED (NOT SEEN); Macrocytosis 3+; Platelet Estimate ADEQ; White Blood Cell Scan OK (OK)
[2023-05-05] MEDS ORDERED: NA CHLORIDE 0.9% 500 ML ONE ×2 (04:21→05:09)
[2023-05-05] MEDS ORDERED: D5 0.9 NS 1,000 ML IV ONE (04:35)
[2023-05-05] MEDS ORDERED: NA CHLORIDE 0.9% 250 ML ONE ×2 (05:09→05:28)
[2023-05-05] MEDS ORDERED: OCTREOTIDE ACETATE 500 MCG/ML ONE (05:09)
[2023-05-05] MEDS ORDERED: PANTOPRAZOLE 40 MG INJ ONE (05:09)
--- NOTE | 2023-05-05 05:16 | ER ---
Nurse's Notes [facility] Name: Stoney Vu Age: 48 yrs Sex: Female : 1975 Arrival Date: 05/05/2023 Time: 03:16 Bed 3 Private MD: Diagnosis: Hypoglycemia, unspecified;Severe sepsis without septic shock;Pneumonia, unspecified organism;Anemia, unspecified;Upper GI Bleed Presentation: 05/05 03:19 Coronavirus screen: At this time, the client does not indicate any symptoms associated as6 with coronavirus-19. Ebola Screen: No symptoms or risks identified at this time. Initial Sepsis Screen: Does the patient meet any 2 criteria? No. Patient's initial sepsis screen is negative. Does the patient have a suspected source of infection? No. Patient's initial sepsis screen is negative. Risk Assessment: Do you want to hurt yourself or someone else? Patient reports no desire to harm self or others. Onset of symptoms was May 05, 2023. 03:19 Acuity: ESTELLE 2 as6 03:19 Method Of Arrival: EMS: [facility] as6 03:20 Chief complaint: EMS states: called out by because pt has been not acting as6 herself the last few days. reports that pt has been falling more and not getting out of bed for the past 4 days. 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 - Social history:: Smoking status: unknown. Screenin:10 [facility] ED Fall Risk Assessment (Adult) Score/Fall Risk Level 3 or more points = High as6 Risk. Abuse screen: Denies threats or abuse. Denies injuries from another. Nutritional screening: No deficits noted. Tuberculosis screening: No symptoms or risk factors identified. Assessment: 03:10 General: Appears ill, unkempt, Behavior is drowsy. Pain: Complains of pain in as6 "everywhere" Quality of pain is described as aching. Neuro: Level of Consciousness is lethargic, Oriented to person, place. Derm: Skin is dusky, Bruising that is bright red, dark purple, on right arm. 03:10 Cardiovascular: Rhythm is sinus tachycardia. Respiratory: Respiratory effort is even, as6 unlabored, Respiratory pattern is regular, symmetrical. 04:52 GI: Abdomen is round distended, Pt is actively vomiting bright red blood. : as6 05:28 Neuro: Level of Consciousness is lethargic. as6 06:11 General: [phone] called and left voice mail in order to attempt as6 verbal consent for EGD . Vital Signs: 03:18 BP 107 / 68; Pulse 102; Resp 18 S; Temp 97.8(O); Pulse Ox 94% on R/A; Weight 73 kg; as6 04:15 BP 106 / 71; Pulse 97; Resp 21 S; Pulse Ox 100% on R/A; as6 04:52 BP 98 / 70; Pulse 117; Resp 22 S; Pulse Ox 95% on R/A; as6 05:07 BP 94 / 67; Pulse 105; Resp 25 S; Temp 96.3(Ca); Pulse Ox 95% on R/A; as6 05:25 BP 97 / 61; Pulse 104; Resp 22 S; Temp 97.2(Ca); Pulse Ox 92% on R/A; as6 05:45 BP 70 / 61; Pulse 114; Resp 24 S; Temp 97.3(Ca); Pulse Ox 97% on R/A; as6 06:00 BP 94 / 73; Pulse 104; Resp 23 S; Temp 97.2(Ca); Pulse Ox 93% on R/A; as6 06:25 BP 90 / 67; Pulse 104; Resp 22 S; Temp 97(Ca); Pulse Ox 96% on R/A; as6 ED Course: 03:10 Inserted saline lock: 18 gauge in right EJ, using aseptic technique. Blood collected. as6 03:17 Patient arrived in ED. snw 03:18 Sina Lopez, SARAH is Primary Nurse. as6 03:18 Didier Brothers DO is Attending Physician. snw 03:19 Triage completed. as6 03:19 Arm band placed on. as6 04:10 Bed in low position. Call light in reach. Side rails up X2. Client placed on continuous as6 cardiac and pulse oximetry monitoring. NIBP monitoring applied. 04:10 Inserted 18g 10cm midline to right upper arm. as6 04:41 CT Head Brain wo Cont In Process Unspecified. EDMS 04:45 Chest Single View XRAY In Process Unspecified. EDMS 04:53 Carl cath inserted, using sterile technique, 16 Fr., by wy, balloon inflated, to as6 gravity drainage, returned jaclyn urine. Patient tolerated well. 05:15 Tobias Rendon MD is Hospitalizing Provider. ms3 05:26 Provided Education on: need for admit. as6 05:26 Patient admitted, IV remains in place. as6 06:23 Assisted provider with central line placement. Set up central line tray. Triple lumen as6 line placed in left internal jugular. Line placed by Didier Brothers DO Placement verified by CXR, blood return, Dressed with Tegaderm, Blood was collected. Patient tolerated well. 06:41 CXR XRAY In Process Unspecified. EDMS Administered Medications: 03:10 Drug: D10 in Water IVP 250 ml IVP once Route: IVP; Site: right jugular; as6 06:30 Follow up: Response: No adverse reaction as6 04:09 Drug: NS 0.9% IV 500 ml IV at bolus once Route: IV; Rate: bolus; Site: right upper arm; as6 06:29 Follow up: Response: No adverse reaction; IV Status: Completed infusion; IV Intake: as6 500ml 04:17 Not Given (Other Intervention Used): d50w50 ml IVP once; (1 amp) as6 04:43 Drug: D5-NS IV 1000 ml IV at 125 ml/hr continuous Route: IV; Rate: 125 ml/hr; Site: as6 right upper arm; 06:41 Follow up: Response: No adverse reaction; IV Status: Infusion continued upon admission; as6 IV Intake: 300ml 05:06 Drug: Pantoprazole IVP 40 mg IVP once Route: IVP; Site: right upper arm; as6 06:31 Follow up: Response: No adverse reaction as6 05:06 Drug: Pantoprazole IV 8 mg/hr IV at 25 ml/hr continuous; (Standard dilution is 80 mg in as6 250 mL NS) Route: IV; Rate: 25 ml/hr; Site: right upper arm; 06:42 Follow up: Response: No adverse reaction; IV Status: Infusion continued upon admission; as6 IV Intake: 50ml 05:07 Drug: Octreotide Infusion (50 mcg/hr) - (Octreotide IV 500 mcg, NS 0.9% IV 500 ml) IV as6 at 50 ml/hr continuous Route: IV; Rate: 50 ml/hr; Site: right jugular; 06:42 Follow up: Response: No adverse reaction; IV Status: Infusion continued upon admission; as6 IV Intake: 150ml 05:21 Drug: Rocephin IV 1 grams IV at calculated rate once; Given slow IV push per pharmacy as6 instructions Route: IV; Rate: calculated rate; Site: right upper arm; :42 Follow up: Response: No adverse reaction; IV Status: Completed infusion; IV Intake: [id number] 05:21 Drug: AZITHromycin IVPB 500 mg IVPB once over 1 hrs; (mix in 250 mL NS) Route: IVPB; as6 Infused Over: 1 hrs; Site: right upper arm; :43 Follow up: Response: No adverse reaction; IV Status: Completed infusion; IV Intake: as6 250ml 05:45 Drug: Thiamine IV 100 mg IV at calculated rate once Route: IV; Rate: calculated rate; as6 Site: right upper arm; :43 Follow up: Response: No adverse reaction; IV Status: Completed infusion; IV Intake: [id number] 05:50 Drug: Albumin IVPB 50 grams 100 ml IVPB once; (Note: Albumin 25% concentration) Volume: as6 100 ml; Route: IVPB; Site: right jugular; :43 Follow up: Response: No adverse reaction; IV Status: Completed infusion; IV Intake: as6 200ml 06:05 Drug: Norepinephrine IV 0.1 mcg/kg/min IV at calculated rate See Administration as6 Instructions; (Standard concentration 4 mg / 250 mL D5W); Recommended max rate 3 mcg/kg/min; Titrate 0.05 mcg/kg/min as often as every 5 minutes to achieve goal (see titration policy); Goal parameter MAP greater than 65 mmHg. Route: IV; Rate: calculated rate; Site: right jugular; 06:44 Follow up: Response: No adverse reaction; IV Status: Infusion continued upon admission; as6 IV Intake: 20ml 06:05 Drug: Rocephin IV 1 grams IV at calculated rate once; Given slow IV push per pharmacy as6 instructions Route: IV; Rate: calculated rate; Site: right upper arm; 06:30 Follow up: Response: No adverse reaction; IV Status: Completed infusion; IV Intake: [id number] Medication: 04:10 VIS not applicable for this client. as6 Point of Care Testing: Blood Glucose: 03:10 Blood Glucose: 36 mg/dL; as6 03:27 Blood Glucose: 229 mg/dL; as6 04:15 Blood Glucose: 71 mg/dL; as6 05:25 Blood Glucose: 76 mg/dL; as6 Ranges: Intake: 06:29 IV: 500ml; Total: 500ml. as6 06:30 IV: 10ml; Total: 510ml. as6 06:41 IV: 300ml; Total: 810ml. as6 06:42 IV: 50ml; Total: 860ml. as6 06:42 IV: 150ml; Total: 1010ml. as6 06:42 IV: 10ml; Total: 1020ml. as6 06:43 IV: 250ml; Total: 1270ml. as6 06:43 IV: 10ml; Total: 1280ml. as6 06:43 IV: 200ml; Total: 1480ml. as6 06:44 IV: 20ml; Total: 1500ml. as6 Outcome: 05:16 Decision to Hospitalize by Provider. ms3 05:26 Condition: stable as6 05:26 Instructed on the need for admit, 06:44 Admitted to ICU accompanied by nurse, via stretcher, room 4, on monitor, with chart, as6 06:45 Patient left the ED. as6 Signatures: Dispatcher [employer] EDJanae Murrieta, JOEC INSTRUCTOR LOOPING-Didier Mock DO DO ms3 Sina Lopez, RN RN as6
--- NOTE | 2023-05-05 05:16 | EDPHYS ---
Physician Documentation [facility] Name: Stoney Vu Age: 48 yrs Sex: Female : 1975 Arrival Date: 05/05/2023 Time: 03:16 Bed 3 Private MD: ED Physician Didier Brothers HPI: 05/05 03:50 This 48 yrs old Female presents to ER via EMS with complaints of weakness. ms3 03:50 48-year-old female with past medical history of bipolar disorder, depression, diabetes, ms3 hypertension, kidney disease presents via [facility] for generalized weakness, not eating for the last 4 days. EMS notes patient's blood glucose level 37 on their arrival. Patient denies pain. Patient denies any alleviating or inciting factors. Patient states she is fallen multiple times recently. 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 - Social history:: Smoking status: unknown. ROS: 03:50 Constitutional: Negative for fever, and chills. Neck: Negative for injury, pain, and ms3 swelling, Cardiovascular: Negative for chest pain, and palpitations. Respiratory: Negative for shortness of breath, cough, wheezing, and pleuritic chest pain, Abdomen/GI: Negative for abdominal pain, nausea, vomiting, diarrhea, and constipation, MS/Extremity: Negative for injury and deformity, 03:50 Skin: Positive for ecchymosis, Exam: 03:50 Constitutional: This is a well developed, well nourished patient who is awake, alert, ms3 and in no acute distress. Head/Face: Normocephalic, atraumatic. Neck: Trachea midline, no cervical lymphadenopathy. Supple, full range of motion without nuchal rigidity, or vertebral point tenderness. No Meningismus. Chest/axilla: Normal chest wall appearance and motion. Nontender with no deformity. 03:50 Cardiovascular: Rate: tachycardic, Rhythm: regular, Pulses: no pulse deficits are appreciated, Heart sounds: normal, normal S1and S2, 03:50 ECG was reviewed by the Attending Physician. Vital Signs: 03:18 BP 107 / 68; Pulse 102; Resp 18 S; Temp 97.8(O); Pulse Ox 94% on R/A; Weight 73 kg; as6 04:15 BP 106 / 71; Pulse 97; Resp 21 S; Pulse Ox 100% on R/A; as6 04:52 BP 98 / 70; Pulse 117; Resp 22 S; Pulse Ox 95% on R/A; as6 05:07 BP 94 / 67; Pulse 105; Resp 25 S; Temp 96.3(Ca); Pulse Ox 95% on R/A; as6 05:25 BP 97 / 61; Pulse 104; Resp 22 S; Temp 97.2(Ca); Pulse Ox 92% on R/A; as6 05:45 BP 70 / 61; Pulse 114; Resp 24 S; Temp 97.3(Ca); Pulse Ox 97% on R/A; as6 06:00 BP 94 / 73; Pulse 104; Resp 23 S; Temp 97.2(Ca); Pulse Ox 93% on R/A; as6 06:25 BP 90 / 67; Pulse 104; Resp 22 S; Temp 97(Ca); Pulse Ox 96% on R/A; as6 Procedures: 06:20 Central Line: the site was prepped with Chlorhexidine , a triple lumen catheter was ms3 inserted, in the left internal jugular vein, in 1 attempts. placement was verified, by CXR, by blood return, Ultrasound, the site was dressed with Tegaderm, using sterile technique, the patient tolerated the procedure, well. MDM: 03:18 Patient medically screened. snw 05:10 ED course: Patient meets severe sepsis criteria at this time. A. PNA B. HR >90, RR >20 ms3 C. LA >2.0. Sepsis order set used. Repeat LA ordered. Abx ordered. Will continue to monitor patient.. 05:54 Independent interpretation of the following test(s) in the Emergency Department CT ms3 Scan: My interpretation is CT head without contrast images reviewed by me does not show ICH. 05:54 ED course: Patient with 1 episode of hematemesis in the ED. Patient placed on Protonix ms3 and Octreotide. BP decreased and levophed started. L IJ CVL placed. Will obtain CXR.. 08:12 Differential Diagnosis altered mental status, sepsis. Data reviewed: vital signs, ms3 nurses notes, lab test result(s), EKG, radiologic studies, and as a result, I will discharge patient. Consideration of Admission/Observation Patient was admitted/placed on observation. Management of patient was discussed with the following: Hospitalist: Dr Rendon. I considered the following discharge prescriptions or medication management in the emergency department Medications were administered in the Emergency Department. See MAR. Historians other than the Patient: EMS: [facility]. Spouse/Significant Other: Patient's . Counseling: I had a detailed discussion with the patient and/or guardian regarding the historical points, exam findings, and any diagnostic results supporting the discharge/admit diagnosis, lab results, radiology results, the need for further work-up and treatment in the hospital. 05/05 03:23 Order name: Blood Culture Adult (2) snw 05/05 03:23 Order name: CBC with Diff; Complete Time: 04:57 snw 05/05 03:23 Order name: CMP; Complete Time: 04:57 snw 05/05 03:23 Order name: Lactate w/ 2H reflex if indic.; Complete Time: 04:57 snw 05/05 03:23 Order name: Protime (+inr); Complete Time: 04:57 snw 05/05 03:23 Order name: Ptt, Activated; Complete Time: 04:57 snw 05/05 03:23 Order name: Urinalysis w/ reflexes snw 05/05 03:23 Order name: Acetaminophen; Complete Time: 04:57 snw 05/05 03:23 Order name: Ethanol; Complete Time: 04:57 snw 05/05 03:23 Order name: Salicylate; Complete Time: 04:57 snw 05/05 03:23 Order name: Urine Drug Screen snw 05/05 03:24 Order name: TS snw 05/05 03:24 Order name: TSH; Complete Time: 04:57 snw 05/05 03:34 Order name: Troponin High Sensitivity; Complete Time: 04:57 ms3 05/05 03:39 Order name: Glucose, Ancillary Testing; Complete Time: 04:57 EDMS 05/05 03:47 Order name: CBC Smear Scan; Complete Time: 04:57 EDMS 05/05 04:27 Order name: Glucose, Ancillary Testing; Complete Time: 04:57 EDMS 05/05 05:37 Order name: Glucose, Ancillary Testing; Complete Time: 05:41 EDMS 05/05 05:37 Order name: Tylenol Level: draw at 0730 la1 05/05 06:18 Order name: BB Add On EDMS 05/05 06:24 Order name: Packed RBC Leukored EDMS 05/05 06:31 Order name: CBC with Automated Diff EDMS 05/05 06:31 Order name: CBC with Automated Diff EDMS 05/05 06:31 Order name: Hematocrit EDMS 05/05 06:31 Order name: Hematocrit EDMS 05/05 06:31 Order name: Hematocrit EDMS 05/05 06:31 Order name: Hemoglobin EDMS 05/05 06:31 Order name: Hemoglobin EDMS 05/05 06:31 Order name: Hemoglobin EDMS 05/05 06:31 Order name: Protime (+INR) EDMS 05/05 06:31 Order name: Protime (+INR) EDMS 05/05 06:31 Order name: PTT, Activated Partial Thromb EDMS 05/05 06:31 Order name: PTT, Activated Partial Thromb EDMS 05/05 03:23 Order name: Chest Single View XRAY snw 05/05 03:34 Order name: CT Head Brain wo Cont ms3 05/05 06:22 Order name: CXR XRAY; Complete Time: 09:07 ms3 05/05 03:23 Order name: EKG; Complete Time: 03:24 snw 05/05 06:31 Order name: CONS Physician Consult EDMS 05/05 06:31 Order name: CONS Physician Consult EDMS 05/05 06:31 Order name: EKG Electrocardiogram EDMS 05/05 06:31 Order name: EKG Electrocardiogram EDMS 05/05 06:31 Order name: EKG Electrocardiogram EDMS 05/05 06:31 Order name: EKG Electrocardiogram EDMS 05/05 06:31 Order name: EKG Electrocardiogram EDMS 05/05 06:31 Order name: EKG Electrocardiogram EDMS 05/05 06:31 Order name: EKG Electrocardiogram EDMS 05/05 06:31 Order name: EKG Electrocardiogram EDMS 05/05 06:31 Order name: EKG Electrocardiogram EDMS 05/05 06:31 Order name: EKG Electrocardiogram EDMS 05/05 06:31 Order name: EKG Electrocardiogram EDAZ 05/05 03:23 Order name: Accucheck; Complete Time: 03:27 snw 05/05 03:23 Order name: Cardiac monitoring; Complete Time: 03:27 snw 05/05 03:23 Order name: EKG - Nurse/Tech; Complete Time: 03:45 snw 05/05 03:23 Order name: IV Saline Lock - Large Bore; Complete Time: 03:27 snw 05/05 03:23 Order name: Labs collected and sent; Complete Time: 03:45 snw 05/05 03:23 Order name: O2 Per Protocol; Complete Time: 03:27 snw 05/05 03:23 Order name: O2 Sat Monitoring; Complete Time: 03:27 snw 05/05 03:23 Order name: Vital Signs; Complete Time: 03:27 snw 05/05 03:23 Order name: Suicide Screening ([place]); Complete Time: 03:45 snw EC:50 Rate is 110 beats/min. Rhythm is regular. QRS [place] is Normal. NE interval is normal. ms3 QRS interval is normal. Clinical impression: NSR w/ Non-specific ST/T Changes. Interpreted by me. Reviewed by me. Administered Medications: 03:10 Drug: D10 in Water IVP 250 ml IVP once Route: IVP; Site: right jugular; as6 06:30 Follow up: Response: No adverse reaction as6 04:09 Drug: NS 0.9% IV 500 ml IV at bolus once Route: IV; Rate: bolus; Site: right upper arm; as6 06:29 Follow up: Response: No adverse reaction; IV Status: Completed infusion; IV Intake: as6 500ml 04:17 Not Given (Other Intervention Used): d50w50 ml IVP once; (1 amp) as6 04:43 Drug: D5-NS IV 1000 ml IV at 125 ml/hr continuous Route: IV; Rate: 125 ml/hr; Site: as6 right upper arm; 06:41 Follow up: Response: No adverse reaction; IV Status: Infusion continued upon admission; as6 IV Intake: 300ml 05:06 Drug: Pantoprazole IVP 40 mg IVP once Route: IVP; Site: right upper arm; as6 06:31 Follow up: Response: No adverse reaction as6 05:06 Drug: Pantoprazole IV 8 mg/hr IV at 25 ml/hr continuous; (Standard dilution is 80 mg in as6 250 mL NS) Route: IV; Rate: 25 ml/hr; Site: right upper arm; :42 Follow up: Response: No adverse reaction; IV Status: Infusion continued upon admission; as6 IV Intake: 50ml 05:07 Drug: Octreotide Infusion (50 mcg/hr) - (Octreotide IV 500 mcg, NS 0.9% IV 500 ml) IV as6 at 50 ml/hr continuous Route: IV; Rate: 50 ml/hr; Site: right jugular; :42 Follow up: Response: No adverse reaction; IV Status: Infusion continued upon admission; as6 IV Intake: 150ml 05:21 Drug: Rocephin IV 1 grams IV at calculated rate once; Given slow IV push per pharmacy as6 instructions Route: IV; Rate: calculated rate; Site: right upper arm; :42 Follow up: Response: No adverse reaction; IV Status: Completed infusion; IV Intake: [id number] 05:21 Drug: AZITHromycin IVPB 500 mg IVPB once over 1 hrs; (mix in 250 mL NS) Route: IVPB; as6 Infused Over: 1 hrs; Site: right upper arm; :43 Follow up: Response: No adverse reaction; IV Status: Completed infusion; IV Intake: as6 250ml 05:45 Drug: Thiamine IV 100 mg IV at calculated rate once Route: IV; Rate: calculated rate; as6 Site: right upper arm; :43 Follow up: Response: No adverse reaction; IV Status: Completed infusion; IV Intake: [id number] 05:50 Drug: Albumin IVPB 50 grams 100 ml IVPB once; (Note: Albumin 25% concentration) Volume: as6 100 ml; Route: IVPB; Site: right jugular; :43 Follow up: Response: No adverse reaction; IV Status: Completed infusion; IV Intake: as6 200ml 06:05 Drug: Norepinephrine IV 0.1 mcg/kg/min IV at calculated rate See Administration as6 Instructions; (Standard concentration 4 mg / 250 mL D5W); Recommended max rate 3 mcg/kg/min; Titrate 0.05 mcg/kg/min as often as every 5 minutes to achieve goal (see titration policy); Goal parameter MAP greater than 65 mmHg. Route: IV; Rate: calculated rate; Site: right jugular; 06:44 Follow up: Response: No adverse reaction; IV Status: Infusion continued upon admission; as6 IV Intake: 20ml 06:05 Drug: Rocephin IV 1 grams IV at calculated rate once; Given slow IV push per pharmacy as6 instructions Route: IV; Rate: calculated rate; Site: right upper arm; 06:30 Follow up: Response: No adverse reaction; IV Status: Completed infusion; IV Intake: [id number] Point of Care Testing: Blood Glucose: 03:10 Blood Glucose: 36 mg/dL; as6 03:27 Blood Glucose: 229 mg/dL; as6 04:15 Blood Glucose: 71 mg/dL; as6 05:25 Blood Glucose: 76 mg/dL; as6 Ranges: Critical Glucose Levels:Adult <50 mg/dl or >400 mg/dl <40 mg/dl or >180 mg/dl Disposition Summary: 05/05/23 05:16 Hospitalization Ordered Notes: Hospitalization Status: Inpatient Admission ms3 Provider: Tobias Rendon ms3 Location: Intensive Care Unit ms3 Condition: Stable ms3 Problem: new ms3 Symptoms: are unchanged ms3 Bed/Room Type: [place] ms3 Room Assignment: 4-(05/05/23 06:41) as6 Diagnosis - Hypoglycemia, unspecified ms3 - Severe sepsis without septic shock ms3 - Pneumonia, unspecified organism ms3 - Anemia, unspecified ms3 - Upper GI Bleed ms3 Forms: - Medication Reconciliation Form ms3 - SBAR form ms3 - Leadership Thank You Letter ms3 Critical care time excluding procedures: 05:10 Critical care time: Bedside Care: 40 minutes, Consultation: 5 minutes. Total time: 45 ms3 minutes Signatures: Dispatcher [employer] EDJanae Murrieta FNP-C SUPERVISOR TELEPHONE INFORMATION-Csnw Genaro Yepez FNP-C FNP-ClaDidier Cintron DO DO ms3 Sina Lopez RN RN as6 Corrections: (The following items were deleted from the chart) 06:41 05:16 ms3 as6
[2023-05-05] MEDS ORDERED: AZITHROMYCIN 500 MG INJ IVPB ONE (05:28)
[2023-05-05] MEDS ORDERED: CEFTRIAXONE 1000 MG/VIAL ONE ×2 (05:28→06:16)
[2023-05-05] MEDS ORDERED: ALBUMIN HUMAN 25% 200 ML IV ONE ×2 (05:56→21:44)
[2023-05-05] MEDS ORDERED: THIAMINE 200 MG/2 ML INJ ONE (05:56)
[2023-05-05] MEDS ORDERED: NOREPINEPHRINE BITARTRATE/D5W 4 MG/250 ML BAG IV ONE (06:14)
[2023-05-05] MEDS ORDERED: ONDANSETRON 4 MG/2 ML VIAL IV PRN (06:16)
--- NOTE | 2023-05-05 06:55 | P.HP ---
Certification for Inpatient Patient admitted to: Inpatient With expected LOS: >2 Midnights Patient will require the following post-hospital care: None Practitioner: I am a practitioner with admitting privileges, knowledge of patient current condition, hospital course, and medical plan of care. Services: Services provided to patient in accordance with Admission requirements found in Title 42 Section 412.3 of the Code of Federal Regulations Patient History Date of Service: 05/05/23 Reason for admission: Upper GI bleeding History of Present Illness: Patient is a 48-year-old female who came to the hospital with abdominal pain. On presentation, she was writhing in pain. She has been moaning and in a lot of distress. She had blood on her mouth and on her hospital bed. She is having significant abdominal tenderness. I spoke to the and he states that she had gone to see a programmer developer at [facility] on Saturday. She was supposed to get scheduled for colonoscopy. However, she was looking very ill, and he was told to take her to the emergency room. She was in the emergency room for a few hours and she was discharged. She was told she has some renal insufficiency. Patient was discharged home and over the last 3 to 4 days she has not been doing well. She has been feeling really weak and ill. She has lost over 20 pounds in the last month because she is not eating anything. Her albumin was less than 2. Her coagulation profile was slightly elevated. Her hemoglobin is 10.8. She is hypotensive with a blood pressure of 90/50. Her heart rate is 110s. We will go ahead and transfuse her 2 units of packed red blood cells. GI was consulted and plan is to do EGD. General surgery has been notified. Patient will be admitted to the intensive care unit. I spoke to the at length. He states that she has been having some health issues over the last 6 weeks. She does not drink alcohol. She used to take narcotics to the point where she may abuse them but she has a pain specialist that she follows up with and he prescribes her her pain medicines. Her acetaminophen level is slightly elevated. She does have a significant macrocytic anemia. We will check a B12 and folate level. We will check her iron levels as well. Patient has been started on a PPI drip and octreotide drip. Patient may need vasopressors. Patient will be monitored closely in the intensive care unit. Allergies NKDA Allergy (Uncoded 05/24/15 09:32) Unknown No Known Allergies Allergy (Uncoded 07/03/17 21:03) Unknown Home Medications: Buspirone HCl [Buspar] 1.5 mg PO TID 01/09/22 Citalopram [Celexa] 40 mg PO DAILY 01/09/22 Trazodone [Desyrel] 50 mg PO BEDTIME 01/09/22 lamoTRIgine [Lamictal] 150 mg PO DAILY 01/09/22 - Past Medical/Surgical History Diabetic: No -: Bipolar/depression/anxiety -: Abdominal hernia -: Right hip surgery -: Hysterectomy -: Gastric Bypass Psychosocial/ Personal History: Patient is unemployed lives at home with her and children - Family History Father Medical History: GI disease Family History: Reviewed- Non-Contributory - Social History Smoking Status: Former smoker Alcohol use: Yes Caffeine use: Yes Review of Systems is unable to be obtained Physical Examination - Vital Signs Temperature: 98 F Blood Pressure: 90/50 Pulse: 110 Respirations: 22 Pulse Ox (%): 94 - Physical Exam General: Alert, In no apparent distress HEENT: Atraumatic, PERRLA, Mucous membr. moist/pink, EOMI, Sclerae nonicteric Neck: Supple, 2+ carotid pulse no bruit, No LAD, Without JVD or thyroid abnormality Respiratory: Clear to auscultation bilaterally, Normal air movement Cardiovascular: Regular rate/rhythm, Normal S1 S2 Gastrointestinal: Normal bowel sounds, Soft and benign, Non-distended, No tenderness Musculoskeletal: No clubbing, No swelling, No tenderness Integumentary: No rashes Neurological: Normal tone, Sensation intact, Cranial nerves 3-12 intact, Normal affect, Abnormal gait, Abnormal speech, Abnormal strength Lymphatics: No axilla or inguinal lymphadenopathy - Studies Laboratory Data (last 24 hrs) 05/05/23 05/05/23 05/05/23 03:33 03:33 03:33 WBC 7.00 Hgb 10.6 L Hct 31.8 L Plt Count 325 PT 14.2 H INR 1.29 APTT 25.7 Sodium 135 L Potassium 3.6 BUN 23 H Creatinine 1.76 H Glucose 45 L* Total Bilirubin 1.5 H AST 80 H ALT 32 Alkaline Phosphatase 130 H Assessment & Plan - Problems (Diagnosis) (1) Acute GI bleeding Current Visit: Yes Status: Acute (2) Acute renal failure Current Visit: Yes Status: Acute (3) Coagulation profile, abnormal Current Visit: Yes Status: Acute (4) Hypoalbuminemia Current Visit: Yes Status: Acute (5) Malnutrition due to starvation Current Visit: Yes Status: Acute (6) Hypovolemic shock Current Visit: Yes Status: Acute (7) Acetaminophen level above therapeutic range Current Visit: Yes Status: Acute (8) Hypoglycemia Current Visit: Yes Status: Acute (9) Abdominal hernia Current Visit: Yes Status: Acute - Plan Plan: 1. Patient with acute GI bleeding with hypovolemic shock; aggressive IV hydration and blood transfusion. Vasopressor support as needed. Patient on a PPI drip and octreotide drip. Gastroenterology consultation and general surgery backup consultation as needed. Patient going to get EGD emergently. We will repeat coagulation profile and platelet count and transfuse as needed patient is a full code at this time. Patient's acetaminophen levels were also elevated. states she takes pain medication as prescribed but she does not abuse pain medication. She does not drink alcohol. She has been severely malnourished over the last month and a half as she has not been eating hardly anything. She has a macrocytic anemia at baseline on admission. We will check her nutritional status. 2. Patient with a history of falls. Most likely related to orthostasis. Once we get her blood pressure fax we will reassess. CT scan of the head pending. 3. Hyperglycemia; check hemoglobin A1c level. Continue with D5 with IV fluids. 4. Lactic acidosis; if patient's labs are acidotic we will go ahead and add bicarb to the D5 IV fluids. 5. Hypoalbuminemia; most likely related to severe malnutrition 6. GI DVT prophylaxis Discharge Plan: Home Plan to discharge in: Greater than 2 days - Advance Directives Does patient have a Living Will: No Does patient have a Durable POA for Healthcare: No - Code Status/Comfort Care Code Status Assessed: Yes Code Status: Full Code Critical Care: Yes Time Spent Managing PTS Care (In Minutes): 120
[2023-05-05] MEDS: PANTOPRAZOLE INJ 80 MG in NA CHLORIDE 0.9% 250 ML IV SCH ×2 (07:00→19:21)
[2023-05-05] MEDS ORDERED: NA CHLORIDE 0.9% 1,000 ML IV SCH (07:00)
[2023-05-05] MEDS ORDERED: NA CHLORIDE 0.9% 250 ML IV SCH (07:00)
[2023-05-05] MEDS: OCTREOTIDE 500 MCG in NA CHLORIDE 0.9% 500 ML IV SCH ×2 (07:00→19:21)
[2023-05-05] MEDS ORDERED: Ringers Lactate 1,000 ML IV ONE (07:00)
[2023-05-05] MEDS ORDERED: FENTANYL CITR 100 MCG/2 ML ONE (07:20)
[2023-05-05] MEDS ORDERED: MIDAZOLAM HCL 2 MG/2 ML INJ ONE ×2 (07:20→15:46)
[2023-05-05] MEDS ORDERED: ETOMIDATE 20 MG/10 ML VIAL IV ONE (07:20)
[2023-05-05] MEDS ORDERED: SUCCINYLCHOLINE 20 MG/ML (10 ML) IV ONE (07:22)
[2023-05-05] MEDS ORDERED: EPINEPHRINE/PF 1 MG/ML AMP ONE (07:36)
[2023-05-05] MEDS ORDERED: ROCURONIUM 50 MG/5 ML VIAL IV ONE ×3 (07:55→18:57)
--- NOTE | 2023-05-05 07:55 | RAD REPORT ---
EXAM DESCRIPTION: RAD - Chest Single View - 05/05/2023 6:39 am CLINICAL HISTORY: Device placement PICC line placement IMPRESSION: PICC line with its tip in the distal superior vena cava
[2023-05-05 08:43] LABS: Hematocrit 22.4 % (36.0-45.0); Lymphocytes % 11.3 % (15.3-44.8); MCV 125.8 fL (80-100); MPV 7.7 fL (7.6-11.3); Platelets 338 thou/uL (152-406); RBC Red Blood Cell Count 1.78 M/uL (3.86-4.86)
[2023-05-05] MEDS: D5 0.9 NS 1,000 ML IV SCH ×2 (09:00→19:52)
[2023-05-05] MEDS: LORazepam 2 MG/ML VIAL IV PRN ×2 (09:20→15:48)
[2023-05-05 09:24] LABS: Anisocytosis 1+; Blood Morphology Comment NOTED (NOT SEEN); Platelet Estimate ADEQ
[2023-05-05] MEDS: PIPER TAZO 3.375 GM in NA CHLORIDE 0.9% 100 ML IV SCH ×2 (09:24→16:45)
[2023-05-05 09:25] LABS: Macrocytosis 2+
[2023-05-05] MEDS ORDERED: NA CHLORIDE 0.9% 100 ML ONE (09:31)
[2023-05-05] MEDS ORDERED: D5W IV ONE (10:06)
[2023-05-05] MEDS ORDERED: ACETYLCYSTEINE IV ONE ×2 (10:06→11:00)
--- NOTE | 2023-05-05 10:18 | P.PN ---
Date of Service: 05/05/23 Subjective: Intubated, on ventilator S/p EGD 05/05 ROS: Unable to obtain Physical exam GEN: Unresponsive, on ventilator HEENT: Normal conjunctiva, sclera anicteric CV: Regular rate and rhythm, no edema Pulm: Breath sounds diminished bilaterally, on vent with ET tube in place breath sounds equal bilaterally ABD: Soft, nontender, nondistended obese, MSK: No joint tenderness Integumentary: No rashes Neuro: On ventilator, unresponsive/sedated Vitals reviewed Problem List Acute blood loss anemia secondary to upper GI bleed-history of gastric bypass/abdominal hernia repair Hypovolemic shock secondary to GI bleed Acute hypoxic respiratory failure Acetaminophen toxicity Acute kidney injury Hypoglycemia Malnutrition/hypoalbuminemia Bipolar disorder/depression/anxiety Plan Acute blood loss anemia secondary to upper GI bleed-history of gastric bypass/abdominal hernia repair Hypovolemic shock secondary to GI bleed S/P EGD 05/05 with large clot in gastric pouch and fresh blood in esophagus, injected with epi in surrounding area Strict NPO, PPI, octreotide Getting one unit PRBC now, repeat H/H 2 hours later GI, Surgery consulted BP low maps around 65 not currently needing pressors but likely to need Acute hypoxic respiratory failure Desatted during EGD, will maintain on vent for now Pulmonolgy consulted, concern for possible aspiration Continue zosyn Acetaminophen toxicity D/W GI, acetylcysteine IV infusion for APAP toxicity ordered Acute kidney injury Nephrology consult Hypoglycemia Continue dextrose containing fluids Malnutrition/hypoalbuminemia Given albumin in ED, continue NPO for now Bipolar disorder/depression/anxiety Will need to hold oral meds, restart when appropriate VTE: SCD Code: Full Dispo: Greater than 2 days Time Spent Managing Pts Care (In Minutes): 35 <Genaro Yepez - Last Filed: 05/05/23 10:10> Patient seen and examined on rounds this morning. Plan of care discussed with FLOAT TENDER Lucho. Agree with plan as noted above with the following additions/corrections: Patient seen after EGD. Remains intubated, reportedly had desaturations during the procedure GI reports and a clot in her stomach, cannot visualize any active bleeding. Injected epinephrine in the surrounding area No NG/OG tube Continue ventilator, continue PPI 2 units PRBCs ordered, monitor H&H Currently maintaining her blood pressure with maps at 65, may need pressors GI, pulmonology, nephrology consulted <Bharath Gaffney - Last Filed: 05/05/23 11:09>
--- NOTE | 2023-05-05 10:43 | P.CNS ---
Date of Consult: 05/05/23 Reason for Consult: Respiratory failure Chief Complaint: Respiratory failure upper GI bleeding History of Present Illness: Patient is 48 years of age has been having problems for the past 6 weeks recently diagnosed with pneumonia at [facility] in with abdominal pain hematemesis pulmonary tenderness and was found to have GI bleeding patient did undergo EGD by Dr. Eldridge and was found to have a clot patient is s/p gastric bypass surgery reaction to antibiotics mother at the bedside was intubated hypotensive anemic Allergies NKDA Allergy (Uncoded 05/24/15 09:32) Unknown No Known Allergies Allergy (Uncoded 07/03/17 21:03) Unknown Home Medications: Buspirone HCl [Buspar] 1.5 mg PO TID 01/09/22 Citalopram [Celexa] 40 mg PO DAILY 01/09/22 Trazodone [Desyrel] 50 mg PO BEDTIME 01/09/22 lamoTRIgine [Lamictal] 150 mg PO DAILY 01/09/22 - Past Medical/Surgical History Diabetic: No -: Bipolar/depression/anxiety -: Abdominal hernia -: Right hip surgery -: Hysterectomy -: Gastric Bypass Psychosocial/ Personal History: Patient is unemployed lives at home with her and children - Family History Father Medical History: GI disease Family History: Reviewed- Non-Contributory - Social History Smoking Status: Current every day smoker, Unknown if ever smoked Alcohol use: Yes Caffeine use: Yes Review of Systems is unable to be obtained Physical Examination Temp Pulse Resp BP Pulse Ox 97.1 F 108 H 22 H 91/50 L 100 05/05/23 08:10 05/05/23 10:00 05/05/23 10:00 05/05/23 10:00 05/05/23 10:00 General: Unresponsive Neck: Supple Respiratory: Clear to auscultation bilaterally Cardiovascular: No edema, Regular rate/rhythm, Normal S1 S2 Gastrointestinal: Normal bowel sounds Musculoskeletal: No clubbing, No swelling Laboratory Data (last 24 hrs) 05/05/23 05/05/23 05/05/23 03:33 03:33 03:33 WBC 7.00 Hgb 10.6 L Hct 31.8 L Plt Count 325 PT 14.2 H INR 1.29 APTT 25.7 Sodium 135 L Potassium 3.6 BUN 23 H Creatinine 1.76 H Glucose 45 L* Total Bilirubin 1.5 H AST 80 H ALT 32 Alkaline Phosphatase 130 H - Problems (1) Respiratory failure Current Visit: Yes Status: Acute Plan: Patient is 48 years of age admitted with GI bleeding respiratory failure currently on ventilator intubated patient on Precedex drip and is currently being transfused hyponatremic hypoglycemia normal LFTs lactic acid is elevated Fuhs changes on chest x-ray patient is on a PEEP of 5 5 O2 less than 50% not sure why the patient is hypoglycemia Qualifiers: Chronicity: acute
[2023-05-05] MEDS: FENTANYL CITR 100 MCG/2 ML IV PRN ×2 (10:55→21:06)
[2023-05-05] MEDS ORDERED: WATER IV ONE (11:00)
[2023-05-05] MEDS ORDERED: ACETYLCYSTEINE IV SCH ×2 (11:00→12:00)
[2023-05-05] MEDS ORDERED: D5W IV SCH (11:00)
[2023-05-05] MEDS ORDERED: DEXTROSE 5% IV ONE (11:00)
[2023-05-05] MEDS ORDERED: WATER IV SCH (12:00)
[2023-05-05] MEDS ORDERED: DEXTROSE 5% IV SCH (12:00)
[2023-05-05 13:18] LABS: Arterial Blood Carboxyhemoglob 1.3 % (0-1.5); Blood Gas Oxyhemoglobin 72.4 % (94-97); Blood O2 Saturation 74.6 % (92-98.5)
--- NOTE | 2023-05-05 14:10 | RAD REPORT ---
EXAM DESCRIPTION: Ney Single View05/05/2023 1:52 pm CLINICAL HISTORY: Intubation COMPARISON: May 05, 2023 FINDINGS: [id number] bilateral pulmonary opacities. Endotracheal tube with its tip 1.8 centimeters above the top of the aortic arch. Central venous line with its tip in the SVC. Free air beneath the right hemidiaphragm IMPRESSION: Mild to moderate bilateral pulmonary opacities may represent pulmonary edema or pneumoni a Pneumoperitoneum suspected. Exam discussed with referring physician 2 p.m. May 05, 2023
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
[2023-05-05] MEDS: NOREPINEPHRINE BITARTRATE/D5W 4 MG/250 ML BAG IV SCH (14:45)
[2023-05-05] MEDS ORDERED: NOREPINEPHRINE 4 MG in D5W 250 ML IV SCH (14:45)
--- NOTE | 2023-05-05 14:49 | RAD REPORT ---
EXAM DESCRIPTION: CT - Chest Abd Pelvis Wo Con - 05/05/2023 2:27 pm CLINICAL HISTORY: Chest and abdominal pain GI bleed COMPARISON: 2013 CT TECHNIQUE: Computed axial tomography of the chest, abdomen and pelvis was obtained. Oral contrast wa s given. IV contrast was not requested. All CT scans are performed using dose optimization technique as appropriate and may include automated exposure control or mA/KV adjustment according to patient size. FINDINGS: The evaluation of mediastinum, kerry, vessels and solid organs is limited secondary to the lack of IV contrast administration Mild to moderate bilateral alveolar lung opacities No mediastinal or hilar lymphadenopathy is seen. Minimal bilateral pleural effusions. A pericardial effusion is not seen. Postsurgical changes gastric bypass. Extraluminal air is present adjacent to the anterior stomach. Moderate pneumoperitoneum is present. S mall to moderate amount of hemoperitoneum Fatty liver The spleen, pancreas, adrenals and kidneys appear grossly normal There is no evidence of diverticulitis. Carl catheter within the bladder IMPRESSION: Gastric bypass. Perforation probably anterior stomach Exam discussed with Dr. Gaffney 2:26 p.m. May 05, 2023
[2023-05-05] MEDS ORDERED: ACETYLCYSTEINE 9,000 MG in D5W 1,000 ML IV ONE (15:00)
[2023-05-05 15:52] LABS: Hematocrit 27.6 % (36.0-45.0)
[2023-05-05] MEDS ORDERED: ACETYLCYSTEINE 9,000 MG in D5W 1,000 ML IV SCH (16:00)
[2023-05-05] MEDS ORDERED: D5 0.45 NS 1,000 ML IV ONE (17:39)
--- NOTE | 2023-05-05 19:12 | CON ---
Date of Consultation: 05/05/2023 History Of Present Illness: This is the case of a 48-year-old patient admitted to the hospital this morning with abdominal pain, found to have a GI bleeding with low hemoglobin and underwent an emergen t EGD this morning by Dr. Leo. Apparently, based on the patient's chart and discussing with the [facility] doctor since at this moment, the patient is intubated and I do not have any family member at [facility]. This patient has been seen by a [facility] system. I do not have information about when was her g astric bypass and if it was David-en-Y or just gastric stapling, not sure about what she has done now. This morning, I just discussed the case with Dr. Leo, she had an EGD done and they found a clot in the fundus of the stomach, it could be just a pouch and basically he just injected the area around it because he did not see any active bleeding and he did not want to remove the clot at that moment. I was called to evaluate the patient and now a few seconds ago as I am discussing the case with the primary doctor, they added another problem to the case, which is, a chest x-ray was done, the radiol ogist is not sure if this is a pneumoperitoneum or not, which is not seen on the previous chest x-ray , so I was consulted. Review of Systems: Unable to be obtained. Patient is on the ventilator and there is nobody at bedside at this moment. Allergies: NONE. Past Medical History: Include bipolar, depression, anxiety, some kind of abdominal hernia, right hip surgery, hysterectomy, and a gastric bypass. Once again, that is obtained from the chart, I cannot get any information about when and what kind of surgery was done. She is a former smoker and she chavarria s not drink alcohol. Once again, that is from the chart. Physical Examination: Vital Signs: Pulse is 105, blood pressure is 96/59. The patient is awake. HEENT: Pupils are anicteric. Neck: Supple. Chest: Bilateral breath sounds. Abdomen: Softly distended. Cannot obtain more physical due to patient once again being sedated on t he ventilator. Extremities: Good capillary refill. Laboratory Data: WBC count at 05/05, 8:30 is 8.7 with a hemoglobin of 7.4, and platelets of 338. IN R is 1.29. Last chemistry that I can see in the chart has a sodium of 135, a glucose of 45, bicarb i s 23. Total bilirubin of 1.5. A chest x-ray at 6 o'clock this morning before the emergent procedure , interpreted by Dr. Isaacs as PICC line with the tips of the superior vena cava. Now, a chest x-r ay done at 1305, shows [id number] bilateral pulmonary opacities, central venous line and SVC an d while it may be free air, pneumoperitoneum suspected by the radiologist. Assessment And Plan: A 48-year-old person now on the ventilator, came here initially with abdominal pain. She has been seen in [facility] for the last few weeks, have an appointment for colonoscopy soon, do not know when she had her David-en-Y gastric bypass. She has been having pain once again. They brou ght her to the ER of [facility], sent home, and then the person decided to come to our institution. At thi s moment, we have no imaging available, we do not have that service in this institution, we do not marroquin ve a service of bariatric surgery in this institution. I just discussed the case with Dr. Leo. H e states that when he went there for the esophagogastroduodenoscopy, he did not see any active bleedi ng, only a large blood clot and he injects medication trying to contain that. There is a plan to rep eat esophagogastroduodenoscopy in the next few hours. From the surgical standpoint, now we have anot her issue. There is a suspected pneumo by radiologist on x-ray and now we have to verify to avoid an unnecessary surgery in this patient, which already have enough comorbidities and problems on her. S o, we requested a stat abdominal CT to rule out pneumo. Vital signs at this moment and hemoglobin marroquni s been checked in the ICU. She already have type and cross. I cannot do the physical exam completel y to rule out tenderness in the belly because she is on the ventilator. If the CAT scan confirmed a pneumoperitoneum, then she might have to go for emergent surgery. HM/MODL Voice ID: [id number] Report ID: [id number]
--- NOTE | 2023-05-05 19:18 | P.BOP ---
Preoperative diagnosis: acute abd, pnemoperitoneum, hemoperitoneum, hypotension, gastric perforatio Postoperative diagnosis: as above, gastric pouch perforation/rupture/bleeding, Resp. failure Primary procedure: Emergent exploratory laparotomy, small bowel laura limb repair, Secondary procedure: repair of gastric pouch rupture with bleeding control Other procedure(s): extensive lysis of adhesions, jejunostomy, evacuation hemoperitoneum Meat Packer: Arelis Cage (DandreNFA) Estimated blood loss: <150cc Specimen: none Findings: see dicta Anesthesia: General Drain(s): Nasogastric, Urinary catheter, ARMIN drain, Other (jejunostomy) Transferred to: ICU Condition: Serious
[2023-05-05 19:29] LABS: Arterial Blood Carboxyhemoglob 0.9 % (0-1.5); Blood O2 Saturation 97.4 % (92-98.5)
[2023-05-05 20:12] LABS: Absolute Lymphocytes (CBC) 0.5 K/uL (0.7-4.9); Hematocrit 27.4 % (36.0-45.0); Lymphocytes % 10.3 % (15.3-44.8); MCV 112.7 fL (80-100); MPV 7.5 fL (7.6-11.3); Platelets 240 thou/uL (152-406); RBC Red Blood Cell Count 2.43 M/uL (3.86-4.86)
[2023-05-05 20:19] LABS: Protime INR 1.77
[2023-05-05 20:31] LABS: Albumin 1.5 g/dL (3.4-5.0); Bilirubin Total 1.2 mg/dL (0.2-1.0); Magnesium 1.6 mg/dL (1.6-2.4); Potassium 3.1 mEq/L (3.5-5.1); Protein, Total 3.9 g/dL (6.4-8.2)
[2023-05-05 20:50] LABS: White Blood Cell Scan DIFF (OK)
[2023-05-05 20:51] LABS: Anisocytosis 1+; Blood Morphology Comment NOTED (NOT SEEN); Dohle Bodies PRESENT; Macrocytosis 1+; Platelet Estimate ADEQ
[2023-05-05 20:52] LABS: Basophilic Stippling 1+; Polychromasia 1+
[2023-05-05] MEDS ORDERED: MAGNESIUM SULFATE 1 gm IVPB 1 GM/100 ML BAG IV ONE (21:00)
[2023-05-05] MEDS: KCL 20 MEQ/100 mL IVPB 20 MEQ/100 ML BAG IV SCH ×2 (21:09→22:50)
[2023-05-05] MEDS ORDERED: CALCIUM GLUC 10% INJ 4.65 MEQ in NA CHLORIDE 0.9% 100 ML IV ONE (22:24)
[2023-05-05] MEDS ORDERED: ALBUMIN HUMAN 25% 50 ML IV ONE (22:48)
[2023-05-05] MEDS ORDERED: CALCIUM GLUCONATE 1 GM IVPB 2 GM/100 ML BAG IV ONE (22:54)
--- NOTE | 2023-05-05 23:58 | CON ---
Date of Consultation: 05/05/2023 Subjective: Acute kidney injury, borderline oliguric. The patient is on pressors and remains intubated. She underwent surgery today for acute abdomen pneumoperitoneum, hemoperitoneum, hypotension and gastric perforation. She had a gastric perforation with fracture, bleeding and she developed respiratory failure. She underwent emergent exploratory laparotomy with small bowel repair. She had repair of the gastric pouch rupture with bleeding control and she had extensive lysis of adhesion, jejunostomy and evacuation of hemoperitoneum. She had ARMIN drain and jejunostomy. The patient has urinary catheter. Urine output is less than 100 for last 12 hours. She remains on pressor and she is intubated. Nephrology consultation is requested for acute kidney injury. Surgery was consulted today for emergent laparoscopic procedure. The patient remains in ICU. She cannot provide review of system. The patient is a 48-year-old woman with abdominal pain for at least 6 weeks. She was found to have bleeding and underwent EGD by Dr. Leo, was found to have blood clot on stomach for gastric bypass surgery. She was anemic and hypotensive, and was intubated in the hospital. Review of Systems: Unobtainable. Past Medical History: Bipolar depression and anxiety, abdominal hernia, right hip surgery, hysterectomy, gastric bypass. Family History: No kidney disease. Social History: Alcohol: Yes. Caffeine: Yes. Physical Examination: General: Patient is intubated, sedated, and on pressor. Cannot provide review of systems. Lungs: Clear to auscultation bilaterally. Cardiovascular: Normal S1, S2. Extremities: No edema. Gastrointestinal: Bowel sounds diminished. Musculoskeletal: No clubbing. No swelling. Laboratory Data: WBC 7.0, hemoglobin 10.6, hematocrit 31.8. Sodium 135, potassium 3.6, BUN 23, creatinine 1.7, glucose 45, total bilirubin 1.5. Impression: The patient is a 48-year-old woman with gastrointestinal bleeding, respiratory failure, underwent emergent surgery for perforated gastric ulcer. She is hypotensive, she needs broad spectrum antibiotics. She developed acute kidney injury due to acute tubular necrosis in the setting of acute bleeding after hypotension. The patient may need dialysis if renal function does not improve over next 24 hours. Plan is to continue IV fluids, volume resuscitation, emergent surgery was done for perforated viscus. Continue broad spectrum antibiotic. Avoid nephrotoxic medication. Continue antibiotics , dose adjusted according to renal function. EB/MODL Voice ID: [id number] Report ID: [id number] ELENI
[2023-05-06] MEDS: PIPER TAZO 3.375 GM in NA CHLORIDE 0.9% 100 ML IV SCH (00:35)
[2023-05-06] MEDS: NOREPINEPHRINE BITARTRATE/D5W 4 MG/250 ML BAG IV SCH ×3 (00:43→17:08)
[2023-05-06 01:21] LABS: Absolute Lymphocytes (CBC) 0.7 K/uL (0.7-4.9); Hematocrit 26.4 % (36.0-45.0); Lymphocytes % 10.4 % (15.3-44.8); MPV 7.9 fL (7.6-11.3); Platelets 230 thou/uL (152-406); RBC Red Blood Cell Count 2.33 M/uL (3.86-4.86)
[2023-05-06 01:23] LABS: MCV 113.1 fL (80-100)
[2023-05-06 01:30] LABS: Potassium 3.9 mEq/L (3.5-5.1)
[2023-05-06] MEDS: PANTOPRAZOLE INJ 80 MG in NA CHLORIDE 0.9% 250 ML IV SCH ×3 (01:49→21:38)
[2023-05-06 03:49] LABS: Renal Epithelial <5 /HPF (None Seen); Specific Gravity > 1.030 (1.005-1.030); Urine Bacteria None Seen /HPF (<20); Urine Bilirubin NEGATIVE (Negative); Urine Blood 3+ (Negative); Urine Clarity Extremely Turbid (Clear); Urine Color Yellow (Yellow); Urine Glucose TRACE (Negative); Urine Mucus Slight /HPF (None Seen); Urine Protein 2+ (Negative); Urine RBC >50 /HPF (None Seen); Urine Urobilinogen Normal (Normal)
[2023-05-06 04:25] LABS: Arterial Blood Carboxyhemoglob 1.3 % (0-1.5); Blood Gas Oxyhemoglobin 88.9 % (94-97); Blood O2 Saturation 91.6 % (92-98.5)
[2023-05-06 05:12] LABS: Hematocrit 25.4 % (36.0-45.0); Platelets 208 thou/uL (152-406); RBC Red Blood Cell Count 2.25 M/uL (3.86-4.86)
[2023-05-06 05:13] LABS: Absolute Lymphocytes (CBC) 0.9 K/uL (0.7-4.9); MPV 7.8 fL (7.6-11.3)
[2023-05-06 05:28] LABS: MCV 112.6 fL (80-100)
[2023-05-06 05:31] LABS: Phosphorus 2.5 mg/dL (2.5-4.9)
[2023-05-06 05:32] LABS: Magnesium 1.9 mg/dL (1.6-2.4); Potassium 3.9 mEq/L (3.5-5.1)
[2023-05-06 05:39] LABS: Protime INR 1.78
[2023-05-06] MEDS: D5 0.9 NS 1,000 ML IV SCH ×2 (05:46→16:13)
[2023-05-06 06:09] LABS: Barbiturates NEGATIVE (NEGATIVE); Benzodiazepines POSITIVE (NEGATIVE); Cocaine NEGATIVE (NEGATIVE); METHAMPHETAM NEGATIVE (NEGATIVE); Methadone NEGATIVE (NEGATIVE); Opiates NEGATIVE (NEGATIVE); Phencyclidine NEGATIVE (NEGATIVE); THC Cannibis NEGATIVE (NEGATIVE)
[2023-05-06] MEDS ORDERED: VANCOMYCIN 1 GM in NA CHLORIDE 0.9% 250 ML IVPB SCH (06:34)
[2023-05-06] MEDS ORDERED: NA CHLORIDE 0.9% 0 ML ONE (06:55)
[2023-05-06] MEDS ORDERED: VANCOMYCIN 1 GM/VIAL ONE (06:55)
[2023-05-06] MEDS ORDERED: VANCOMYCIN 2.25 GM in NA CHLORIDE 0.9% 500 ML IVPB ONE ×2 (07:00→08:00)
--- NOTE | 2023-05-06 07:50 | P.PN ---
Subjective Date of Service: 05/06/23 Chief Complaint: Respiratory failure upper GI bleeding/s/p perforation Is 48 years of age admitted with GI bleeding she is also had a gastric perforation currently on ventilator stable requiring as needed fentanyl hemodynamically stable low doses of Levophed is on FiO2 of 60% PEEP of 5 Review of Systems is unable to be obtained Physical Examination - Vital Signs Temperature: 98.8 F Blood Pressure: 108/70 Pulse: 135 Respirations: 26 Pulse Ox (%): 99 - Physical Exam General: Unresponsive Respiratory: Clear to auscultation bilaterally, Diminished Cardiovascular: No edema, Regular rate/rhythm Gastrointestinal: No rebound, Absent bowel sounds Assessment And Plan - Current Problems (Diagnosis) (1) Respiratory failure Current Visit: Yes Status: Acute Plan: 80 years of age admitted with GI bleeding s/p perforation currently on a ventilator hemodynamically stable on low doses of Levophed right now shows bilateral pulmonary infiltrates more less likely acute lung injury White count is normal hemoglobin stable later settings reviewed FiO2 60% PEEP of 5 Qualifiers: Chronicity: acute
[2023-05-06] MEDS: LORazepam 2 MG/ML VIAL IV PRN (08:44)
[2023-05-06] MEDS: Meropenem 1,000 MG in NA CHLORIDE 0.9% 100 ML IV SCH ×2 (08:44→21:38)
[2023-05-06] MEDS ORDERED: NOREPINEPHRINE BITARTRATE/D5W 4 MG/250 ML BAG IV ONE ×2 (08:51→17:19)
[2023-05-06] MEDS ORDERED: Meropenem 1000 MG/VIAL IV ONE ×2 (08:51→21:50)
[2023-05-06] MEDS ORDERED: NA CHLORIDE 0.9% 100 ML ONE (08:51)
--- NOTE | 2023-05-06 10:15 | P.PN ---
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 S/P repair 05/05 Acute blood loss anemia secondary to above Hypovolemic shock secondary to GI bleed Acute hypoxic respiratory failure Acetaminophen toxicity Acute kidney injury Hypoglycemia Malnutrition/hypoalbuminemia Bipolar disorder/depression/anxiety Plan 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 Acute blood loss anemia secondary to upper GI bleed Hypovolemic shock secondary to GI bleed S/P Ex lap-small bowel laura limb repair, repair of gastric pouch 05/05 Now with 3 ARMIN drains, J tube in place S/P EGD 05/05 with large clot in gastric pouch and fresh blood in esophagus, injected with epi in surrounding area Strict NPO, continuous PPI PRN blood transfusion GI, General Surgery consulted On low dose levophed today plan for LTAC at [facility] Discuss TPN with surgery Acute hypoxic respiratory failure Desatted during EGD, will maintain on vent Pulmonolgy consulted, concern for possible aspiration continue Vanc/merrum Acetaminophen toxicity D/W GI, acetylcysteine IV infusion for APAP toxicity ordered and nearly complete Monitor LFTs daily Acute kidney injury Worsening, nephrology following Low urine output Hypoglycemia Continue dextrose containing fluids Malnutrition/hypoalbuminemia Given albumin in ED, continue NPO for now Bipolar disorder/depression/anxiety Will need to hold oral meds, restart when appropriate VTE: SCD Code: Full Dispo: Greater than 2 days- LTAC at [facility] Time Spent Managing Pts Care (In Minutes): 40 <Genaro Yepez - Last Filed: 05/06/23 10:07> patient seen and examined on rounds this morning No acute events overnight remains on vent, on levophed titrate vent; patient needing increased sedation dawood worsened, nephrology following; workup sent monitor UOP start TPN at low rate, frequent BMPs, / mg/ phos; monitor closely for refeeding syndrome will need LTACH on discharge most likely <Bharath Gaffney - Last Filed: 05/06/23 20:31>
[2023-05-06] MEDS: FENTANYL CITR 100 MCG/2 ML IV PRN ×3 (11:08→22:41)
--- NOTE | 2023-05-06 11:11 | RAD REPORT ---
EXAM DESCRIPTION: RADChest Single View05/06/2023 9:41 am CLINICAL HISTORY: vent/icu recent surgery COMPARISON: Chest Single View dated 05/05/2023; Chest Single View dated 05/05/2023; Chest Single Vie w dated 05/05/2023; Chest Single View dated 11/23/2022 TECHNIQUE: Portable AP view of the chest. FINDINGS: Bilateral central predominant patchy opacities worse on the left are stable in extent. Aga in, these may relate to pneumonitis or pulmonary edema. Endotracheal tube and left IJ CVC are stable in position. No pneumothorax or effusion. The cardiomediastinal contours are unremarkable. Pneumope ritoneum no longer visualized. IMPRESSION: Stable findings, as above. Pneumoperitoneum no longer visualized.
--- NOTE | 2023-05-06 11:14 | RAD REPORT ---
EXAM DESCRIPTION: RAD - Abdomen 1 View (KUB) - 05/06/2023 9:41 am CLINICAL HISTORY: vent/icu recent surgery COMPARISON: Chest Single View dated 05/06/2023; Chest Abd Pelvis Wo Con dated 05/05/2023 TECHNIQUE: Single AP view of the abdomen. FINDINGS: Nonobstructive bowel gas pattern. Postsurgical changes with sequelae of midline laparotomy and surgical drains in both flanks and near the pelvis. Enteric tube tip projects over the mid to distal stomach. No appreciable free air or pneu matosis. No suspicious calcifications. No significant bony abnormality. IMPRESSION: Postoperative findings as above. No acute process.
[2023-05-06] MEDS ORDERED: FENTANYL CITR 100 MCG/2 ML ONE ×3 (11:19→22:52)
[2023-05-06] MEDS ORDERED: NA CHLORIDE 0.9% 1,000 ML ONE (11:56)
[2023-05-06] MEDS: HALOPERIDOL LACT 5 MG/ML INJ IV PRN ×2 (12:01→19:40)
[2023-05-06 12:20] LABS: Albumin 1.9 g/dL (3.4-5.0); Bilirubin Total 1.8 mg/dL (0.2-1.0); Potassium 3.4 mEq/L (3.5-5.1); Protein, Total 4.2 g/dL (6.4-8.2)
[2023-05-06] MEDS ORDERED: propofoL 1,000 MG/100 ML VIAL IV ONE (12:50)
[2023-05-06] MEDS ORDERED: propofoL 1,000 MG/100 ML VIAL IV SCH (13:00)
[2023-05-06] MEDS ORDERED: DEXMEDETOMIDINE HCL 200 MCG in NA CHLORIDE 0.9% 98 ML IV SCH (14:00)
[2023-05-06] MEDS ORDERED: MIDAZOLAM HCL 2 MG/2 ML INJ ONE (14:56)
--- NOTE | 2023-05-06 15:03 | RAD REPORT ---
EXAM DESCRIPTION: RAD - Chest Single View - 05/06/2023 2:54 pm CLINICAL HISTORY: Change in breathing/02 requirements Chest pain. COMPARISON: <Comparisons> FINDINGS: Portable technique limits examination quality. Tip of the enteric tracheal tube is about 1 cm above the level of the aortic arch. Left-sided venous catheter its tip in the SVC. Moderate patchy opacities in both lungs, greater on the left, again note d, slightly worse on the left.The heart is mildly prominent in size. IMPRESSION: Subtle worsening of lung aeration seen on the left.
[2023-05-06] MEDS: MIDAZOLAM HCL 2 MG/2 ML INJ IV PRN (15:04)
--- NOTE | 2023-05-06 15:20 | PN ---
Date of Progress Note: 05/06/2023 Diagnoses: Upper GI gastric perforation, status post emergent laparotomy, and closure and repair of the proximal pouch of the David-en-Y gastric bypass with defunctionalizing the efferent limb. Jejunos sami, laparotomy, evacuation of hemoperitoneum, evacuation of gastric contents. Subjective: The patient right now is still on Levophed, although minimum was seemed to be catching o ut with the H and H. The patient is ventilated and sedated, so no review of systems at this moment. Objective: General: Patient is awake, alert. Chest: Bilateral breath sounds. Abdomen: Soft and depressible. Bowel sounds negative. ARMIN drain serosanguineous minimal and jejunos sami tube not being used at this moment and NG tube with minimal with no active bleeding. Extremities: Good capillary refill. Laboratory Data: Blood work reviewed. Plan: We cannot replace the NG tube, so we are trying to keep it there as long as we can. We should not be feeding her yet through the jejunostomy. We will use TPN. We do not want neither any flush or any manipulation of the nasogastric tube. The stomach is not connected. I explained that to ever y other personnel that I had seen next to me including the primary doctors and the nurses. There is no connection between the pouch and the rest of the stomach or the pouch to the efferent limb of the David-en-Y. This patient will need gastric reconstruction. At this moment, we are trying to improve her vital signs, improve her condition, rescue her from the hypovolemic shock and also trying to unde rstand her kidney dysfunction. From the surgical standpoint, keep the dressings intact and DVT prophylaxis and we will follow the patient wit nazario quinones. TABATHA/JIMMIE Voice ID: [id number] Report ID: [id number]
[2023-05-06 15:28] LABS: Arterial Blood Carboxyhemoglob 1.4 % (0-1.5); Blood Gas Oxyhemoglobin 87.5 % (94-97)
[2023-05-06] MEDS: KCL 20 MEQ/100 mL IVPB 20 MEQ/100 ML BAG IV SCH ×2 (16:13→18:03)
[2023-05-06] MEDS ORDERED: AA 5%/D20W/ELECTROLYTES-TPN 2,000 ML, Lipids 20% 250 ML with MULTIVITAMINS INJ 10 ML IV SCH ×3 (17:00)
[2023-05-06] MEDS: NA CHLORIDE 0.9% 490 ML with DEXMEDETOMIDINE HCL 1,000 MCG IV SCH ×2 (17:01)
[2023-05-06] MEDS: THIAMINE 200 MG/2 ML INJ IVP SCH (17:08)
[2023-05-06] MEDS ORDERED: THIAMINE 200 MG/2 ML INJ ONE (17:18)
[2023-05-06 17:46] LABS: Hematocrit 23.4 % (36.0-45.0)
[2023-05-06 18:04] LABS: Magnesium 1.8 mg/dL (1.6-2.4); Potassium 3.5 mEq/L (3.5-5.1)
[2023-05-07 00:40] LABS: Magnesium 1.9 mg/dL (1.6-2.4); Phosphorus 2.1 mg/dL (2.5-4.9); Potassium 3.7 mEq/L (3.5-5.1)
--- NOTE | 2023-05-07 02:41 | PN ---
Date of Progress Note: 05/06/2023 Chief Complaint: Acute kidney injury, borderline oliguric. The patient is on pressor. She remains intubated in ICU. She underwent surgery yesterday for acute abdomen, pneumoperitoneum, hemoperitoneum, hypotension, and gastric perforation. She developed gastric perforation with bleeding and respiratory failure. She underwent emergent exploratory laparotomy, and she remains on pressors. The patient is on IV fluids for acute kidney injury. Renal function has not improved over last 24 hours, although creatinine level is plateauing over last 24 hours. Review of Systems: Unobtainable due to patient's condition. Physical Examination: General: Patient is intubated, sedated on pressors. Lungs: Clear to auscultation bilaterally. Heart: S1, S2. Abdomen: Diminished bowel sounds. Extremities: No clubbing. No swelling. Impression And Plan: The patient is a 48-year-old woman with gastrointestinal bleeding, respiratory failure, underwent emergent surgery for perforated gastric ulcer. She has hypotension. She is on pressor. She is on broad-spectrum antibiotic. She developed severe acute kidney injury in setting of acute bleeding and perforated ulcer with hypotension. The patient is on IV fluids for volume resuscitation and to treat sepsis and hypotension. The patient will continue IV fluids. Monitor electrolytes closely. The patient may need TPN. Avoid nephrotoxic medication. Monitor the renal function and avoid nonsteroidal anti-inflammatory medication. ALLA/JIMMIE Voice ID: [id number] Report ID: [id number] ELENI
[2023-05-07] MEDS: NOREPINEPHRINE BITARTRATE/D5W 4 MG/250 ML BAG IV SCH (03:14)
[2023-05-07] MEDS: LORazepam 2 MG/ML VIAL IV PRN (03:14)
[2023-05-07] MEDS: D5 0.9 NS 1,000 ML IV SCH ×2 (03:14→11:00)
[2023-05-07 05:46] LABS: Absolute Lymphocytes (CBC) 0.7 K/uL (0.7-4.9); Hematocrit 22.7 % (36.0-45.0); Lymphocytes % 8.3 % (15.3-44.8); MCV 113.9 fL (80-100); MPV 8.2 fL (7.6-11.3); Platelets 137 thou/uL (152-406); RBC Red Blood Cell Count 1.99 M/uL (3.86-4.86)
[2023-05-07 05:50] LABS: Protime INR 1.53
[2023-05-07 06:02] LABS: Albumin 1.5 g/dL (3.4-5.0); Bilirubin Total 1.6 mg/dL (0.2-1.0); Phosphorus 2.1 mg/dL (2.5-4.9); Potassium 3.7 mEq/L (3.5-5.1); Protein, Total 3.9 g/dL (6.4-8.2)
--- NOTE | 2023-05-07 07:18 | RAD REPORT ---
EXAM DESCRIPTION: RAD - Chest Single View - 05/07/2023 5:06 am CLINICAL HISTORY: on vent COMPARISON: Chest Single View dated 05/06/2023; Abdomen 1 View (KUB) dated 05/06/2023; Chest Single View dated 05/06/2023; Chest Single View dated 05/05/2023; Chest Abd Pelvis Wo Con dated 05/05/2023 FINDINGS: Lines: Endotracheal tube at the aortic arch. Enteric tube below the diaphragm. Left IJ poncho lentz central line with tip overlying the proximal SVC. Lungs: Widespread interstitial and airspace disease which appears worsened compared with 05/06/2023. Pleural: No significant pleural effusions or pneumothorax. Cardiac: The heart size is within normal limits. Mediastinum: Within normal limits. Bones: No acute fractures. Other: None IMPRESSION: Worsened widespread bilateral interstitial and airspace disease that probably represents pulmonary edema though multifocal pneumonia difficult to exclude radiographically.
[2023-05-07] MEDS: MIDAZOLAM HCL 2 MG/2 ML INJ IV PRN ×2 (07:50→15:55)
[2023-05-07] MEDS: THIAMINE 200 MG/2 ML INJ IVP SCH (07:50)
[2023-05-07] MEDS: PANTOPRAZOLE INJ 80 MG in NA CHLORIDE 0.9% 250 ML IV SCH ×2 (07:55→17:35)
[2023-05-07] MEDS: NA CHLORIDE 0.9% 490 ML with DEXMEDETOMIDINE HCL 1,000 MCG IV SCH ×6 (07:55→22:00)
[2023-05-07] MEDS ORDERED: KCL 20 MEQ/100 mL IVPB 20 MEQ/100 ML BAG IV SCH (08:00)
[2023-05-07] MEDS ORDERED: MIDAZOLAM HCL 2 MG/2 ML INJ ONE ×2 (08:00→16:07)
[2023-05-07] MEDS ORDERED: POTASSIUM PHOS IN 0.9 % NACL 15 MMOL/250 ML BAG IV ONE (08:00)
[2023-05-07 09:00] LABS: Blood Morphology Comment NOTED (NOT SEEN); Platelet Estimate DECR
[2023-05-07 09:01] LABS: Anisocytosis 1+; Basophilic Stippling 1+; Macrocytosis 1+; Polychromasia 1+; Rouleau SLIGHT
[2023-05-07 09:02] LABS: Dohle Bodies PRESENT
[2023-05-07] MEDS: Meropenem 1,000 MG in NA CHLORIDE 0.9% 100 ML IV SCH (11:27)
[2023-05-07] MEDS ORDERED: Meropenem 500 MG VIAL IV ONE (11:35)
[2023-05-07] MEDS ORDERED: NA CHLORIDE 0.9% 100 ML ONE (11:36)
[2023-05-07] MEDS ORDERED: Meropenem 1000 MG/VIAL IV ONE ×2 (11:41→20:55)
--- NOTE | 2023-05-07 11:53 | PN ---
Diagnoses: Status post repair of a gastric rupture on the proximal pouch of the David-en-Y gastric by pass with a GI bleed, defunctionalization of the David-en-Y gastric bypass, feeding jejunostomy, emerg ent laparotomy, and respiratory failure, at that moment was hypovolemic shock. Subjective: Trying to transfer the patient now. Because unstable, we have to do the surgery in this institution. I discussed the case with Dr. Morales before surgery who is a bariatric surgeon in [facility], [place], but unfortunately could not transfer the patient to that institution. Objective: General: At this moment, the patient is still sedated and intubated. Vital Signs: Afebrile, blood pressure is 122/78 with O2 sat at 100% and pulse rate of 75. Chest: She has diminished breath sounds bilaterally. Abdomen: Soft and depressible. Intact incisions and ARMIN drain functional. No bowel leak. No bile. No active bleeding. Jejunostomy tube was flushed today, but not to be used yet. Extremities: Good capillary refill. NG tube is minimal. That NG tube is not on the stomach itself, is on whatever is left from the pouch of the David-en-Y. We advised everybody if a person pulled out by accident, to not replace the NG tube. Laboratory Data: Blood work shows WBC count of 9 with hemoglobin of 7.6 and platelets of 137. INR i s 1.53, chloride is 111, creatinine is 2.62, glucose is 173. Chest x-ray done today and interpreted by Dr. Weber as worse widespread bilateral interstitial and airspace disease. Plan: From the surgical standpoint, continue TPN. DVT prophylaxis. Protonix or equivalent. Contin ue NG tube. ARMIN drains not showing any bleeding or any pus or GI content. Continue TPN. We will use a feeding tube eventually when she is more stable. Continue the antibiotics per the primary doctor and renal followup. HM/MODL Voice ID: [id number] Report ID: [id number]
--- NOTE | 2023-05-07 12:21 | RAD REPORT ---
EXAM DESCRIPTION: RAD - Chest Single View - 05/05/2023 4:43 am CLINICAL HISTORY: Obtunded. COMPARISON: None FINDINGS: The heart is normal in size. The pulmonary vascularity is normal. Inspiratory effort is moderate. Bilateral diffuse interstitial infiltrates and atelectasis are noted in the perihilar region, greater on the left No pneumothorax or pleural effusion is seen. The osseous structures appear unremarkable. IMPRESSION: Bilateral interstitial infiltrates and atelectasis. Electronically signed by: Sharon Rodríguez MD 05/05/2023 08:32 PM [employer] Due to temporary technical issues with the PACS/Fluency reporting system, reports are being signed by the in house radiologist without review as a courtesy to ensure prompt reporting. The interpreting r adiologist is fully responsible for the content of the report.
--- NOTE | 2023-05-07 12:21 | RAD REPORT ---
EXAM DESCRIPTION: CT - Head Brain Wo Cont - 05/05/2023 6:49 am CLINICAL HISTORY: Fall COMPARISON: None. TECHNIQUE: CT HEAD WITHOUT IV CONTRAST on 05/05/2023 3:34 AM [employer] This exam was performed according to our departmental dose-optimization program, which includes autom ated exposure control, adjustment of the mA and/or kV according to patient size and/or use of iterati ve reconstruction technique. FINDINGS: There is no acute hemorrhage, mass effect or midline shift. Huntley-white differentiation is preserved. There is no hydrocephalus. There is mild diffuse cerebral atrophy. The calvarium is intact. Orbits and globes are unremarkable. The paranasal sinuses are clear. Mastoid air cells are clear. IMPRESSION: No acute intracranial findings. Electronically signed by: Kana Candelario MD 05/05/2023 06:34 AM [employer] Due to temporary technical issues with the PACS/Fluency reporting system, reports are being signed by the in house radiologist without review as a courtesy to ensure prompt reporting. The interpreting r adiologist is fully responsible for the content of the report.
--- NOTE | 2023-05-07 12:30 | P.PN ---
Subjective Date of Service: 05/07/23 Chief Complaint: Respiratory failure upper GI bleeding/s/p perforation Patient is currently stable doing better on pressure control ventilation hemodynamically stable oxygenation satisfactory still unresponsive Precedex drip Review of Systems is unable to be obtained Physical Examination - Vital Signs Temperature: 97.9 F Blood Pressure: 102/69 Pulse: 73 Respirations: 21 Pulse Ox (%): 97 - Physical Exam General: Unresponsive Respiratory: Normal air movement Cardiovascular: No edema Gastrointestinal: Hypoactive Assessment And Plan - Current Problems (Diagnosis) (1) Respiratory failure Current Visit: Yes Status: Acute Plan: Patient is on a ventilator currently stable oxygenation satisfactory FiO2 reduced change to pressure control ventilation FiO2 requirement is less than 50% patient is on a PEEP of 8 patient is anemic hemoglobin 7.6 renal function is stable patient is on meropenem and vancomycin Precedex drip with the as needed sedation chest x-ray reviewed endotracheal tube in satisfactory position patient has bilateral pulmonary infiltrates most likely acute lung injury Qualifiers: Chronicity: acute
[2023-05-07] MEDS ORDERED: ATROPINE SULF 1 MG/10 ML SYR IV ONE (12:41)
[2023-05-07 13:04] LABS: Magnesium 1.8 mg/dL (1.6-2.4); Phosphorus 2.4 mg/dL (2.5-4.9); Potassium 4.6 mEq/L (3.5-5.1)
[2023-05-07] MEDS ORDERED: FUROSEMIDE 40 MG/4 ML VIAL IV ONE (13:16)
[2023-05-07] MEDS ORDERED: FUROSEMIDE 40 MG in NA CHLORIDE 0.9% 50 ML IV ONE (13:30)
[2023-05-07] MEDS ORDERED: MAGNESIUM SULFATE 1 gm IVPB 1 GM/100 ML BAG IV ONE (13:40)
--- NOTE | 2023-05-07 13:45 | P.PN ---
Subjective Date of Service: 05/07/23 Chief Complaint: Respiratory failure upper GI bleeding/s/p perforation Patient is sedated and not able to give any subjective complaint. She is on mechanical ventilation. Blood pressure stable on low-dose vasopressor. No recorded fever NG tube draining bloodstained fluid. Physical Examination - Vital Signs Temperature: 97.9 F Blood Pressure: 102/69 Pulse: 73 Respirations: 21 Pulse Ox (%): 97 Assessment And Plan - Plan Physical exam GEN: Unresponsive, on mechanical ventilation HEENT: ET tube, NG tube CV: Regular rate and rhythm, bilateral upper and lower extremity edema Pulm: Breath sounds diminished bilaterally. Mechanical ventilation. ABD: [address], J tube in place, abd soft, dressings CDI Integumentary: Ecchymosis right shoulder. 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 NG tube continues to drain bloodstained fluid. Strict NPO, continuous PPI. NG tube. PRN blood transfusion GI, General Surgery are following. On low dose levophed. TPN Acute hypoxic respiratory failure Desatted during EGD, will maintain on vent Pulmonolgy is following. continue Vanc/merrum Acetaminophen toxicity Acetylcysteine IV infusion for APAP toxicity per GI. Monitor LFTs daily Acute kidney injury Serum creatinine plateaued at 2.6. Nephrology is following Patient is getting IV fluid in addition to the TPN. Monitor renal function. Hypoglycemia Continue dextrose containing fluids Malnutrition/hypoalbuminemia Given albumin in ED, continue NPO for now TPN Bipolar disorder/depression/anxiety Hold oral meds, restart when appropriate. VTE: SCD Code: Full
--- NOTE | 2023-05-07 16:49 | PN ---
Date of Progress Note: 05/07/2023 Subjective: The patient was admitted with perforated viscus. The patient had septic shock. The patient was on pressor. The patient has been nonoliguric but overvolume. Kidney function plateaued. The patient weaned from the pressor today. Objective: Vital Signs: Blood pressure 139/60, pulse of 88. Chest: Crackles, bilateral. Heart: S1, S2. Systolic murmur. Abdomen: Dressing. Extremities: +2 edema. Neuro: Patient is sedated. On vent, 50% FiO2. Laboratory Data: Chest x-ray: Cardiomegaly with congestion. Hemoglobin 7.6, sodium 140, potassium 4.6, bicarb 22, BUN 28, creatinine 2.6, GFR 22, calcium 7.8, phosphorus 2.4, magnesium 1.8. Current Medications: The patient on include: 1. Meropenem 1 g b.i.d. 2. Vancomycin. 3. D5 half. 4. Zofran. 5. Pantoprazole. 6. Patient received KCl. 7. Patient on TPN. Assessment And Plan: 1. Acute kidney injury secondary to poor perfusion, ATN, oliguric, overvolume. I am going to start the patient on diuresis to convert her to nonoliguric. If we fail, patient may need to be initiated on renal replacement therapy. I am going to go ahead and decrease meropenem to 500 mg given the current kidney function as it overestimate the GFR with the acute kidney injury and oliguric state and I am going to continue to monitor her vancomycin trough and we will follow up. 2. Hypertension, currently blood pressure on the lower side, just weaned from the pressor. As above, we will start diuresis and we will follow up. 3. Perforated viscus. Continue current treatment. Follow up with Surgery. Adjust antibiotic. 4. Hypokalemia. I am going to be reluctant for any replacement for the time being. 5. Hypomagnesemia. We will supplement. time spend exam the patient face to face , reviewing data lab and radiology , placing order discussing with the family , Nursing staff and hospitalist >35 min NATALIIA Voice ID: [id number] Report ID: [id number] ELENI
[2023-05-07] MEDS ORDERED: AA 5%/D20W/ELECTROLYTES-TPN 2,000 ML IV SCH (17:00)
[2023-05-07] MEDS ORDERED: VANCOMYCIN 1.5 GM in NA CHLORIDE 0.9% 500 ML IVPB SCH ×2 (18:00→19:00)
[2023-05-07] MEDS: Meropenem 500 MG in NA CHLORIDE 0.9% 100 ML IV SCH (21:06)
[2023-05-07] MEDS: DEXMEDETOMIDINE HCL 1,000 MCG in NA CHLORIDE 0.9% 490 ML IV SCH (22:00)
[2023-05-07] MEDS ORDERED: DEXMEDETOMIDINE HCL 200 MCG in NA CHLORIDE 0.9% 98 ML IV SCH (23:00)
[2023-05-08 01:35] LABS: Magnesium 2.1 mg/dL (1.6-2.4); Phosphorus 1.8 mg/dL (2.5-4.9)
[2023-05-08] MEDS: PANTOPRAZOLE INJ 80 MG in NA CHLORIDE 0.9% 250 ML IV SCH ×3 (04:05→23:48)
[2023-05-08 04:36] LABS: Protime INR 1.33
[2023-05-08 04:39] LABS: Absolute Lymphocytes (CBC) 0.9 K/uL (0.7-4.9); Lymphocytes % 7.7 % (15.3-44.8); MPV 8.4 fL (7.6-11.3); Platelets 106 thou/uL (152-406); RBC Red Blood Cell Count 1.92 M/uL (3.86-4.86)
[2023-05-08 04:46] LABS: Albumin 1.3 g/dL (3.4-5.0); Bilirubin Total 1.7 mg/dL (0.2-1.0); Magnesium 2.1 mg/dL (1.6-2.4); Phosphorus 1.6 mg/dL (2.5-4.9); Potassium 3.9 mEq/L (3.5-5.1); Protein, Total 4.2 g/dL (6.4-8.2)
[2023-05-08 04:57] LABS: MCV 114.2 fL (80-100)
[2023-05-08] MEDS ORDERED: SODIUM PHOSPHATE 15 MM in NA CHLORIDE 0.9% 250 ML IV ONE (08:00)
--- NOTE | 2023-05-08 08:41 | P.PN ---
Subjective Date of Service: 05/08/23 Chief Complaint: Respiratory failure upper GI bleeding/s/p perforation Hemodynamically stable unresponsive on a ventilator and a Precedex drip Review of Systems is unable to be obtained Physical Examination - Vital Signs Temperature: 97.4 F Blood Pressure: 139/87 Pulse: 63 Respirations: 26 Pulse Ox (%): 100 - Physical Exam General: Unresponsive Respiratory: Clear to auscultation bilaterally, Diminished Cardiovascular: No edema, Regular rate/rhythm, Normal S1 S2 Gastrointestinal: Hypoactive, No tenderness, Absent bowel sounds Assessment And Plan - Current Problems (Diagnosis) (1) Respiratory failure Current Visit: Yes Status: Acute Plan: Patient is currently on a ventilator hemodynamically stable FiO2 of 40% patient is anemic will probably require blood transfusion hemoglobin is now 7.2 renal function stable chest x-ray ordered likely has acute lung injury continue to monitor hemoglobin patient is FiO2 of 40% on TPN Qualifiers: Chronicity: acute
[2023-05-08] MEDS ORDERED: THIAMINE 200 MG/2 ML INJ ONE (08:44)
[2023-05-08] MEDS ORDERED: NA CHLORIDE 0.9% 100 ML ONE (08:45)
[2023-05-08] MEDS: THIAMINE 200 MG/2 ML INJ IVP SCH (08:52)
[2023-05-08] MEDS: Meropenem 500 MG in NA CHLORIDE 0.9% 100 ML IV SCH ×2 (08:59→21:27)
--- NOTE | 2023-05-08 09:15 | RAD REPORT ---
EXAM DESCRIPTION: RADChest Single View05/08/2023 9:05 am CLINICAL HISTORY: resp failure COMPARISON: Chest Single View dated 05/07/2023; Chest Single View dated 05/06/2023; Abdomen 1 View ( KUB) dated 05/06/2023; Chest Single View dated 05/06/2023 TECHNIQUE: Portable AP view of the chest. FINDINGS: Left IJ CVC, endotracheal tube, and enteric tube are stable in position. Stable central in terstitial prominence and central predominant fluffy opacities with possible trace effusion. No pneum othorax or sizable effusion. The cardiomediastinal contours are unremarkable. IMPRESSION: Stable central findings which may suggest pulmonary edema, less likely multifocal pneumo duarte.
[2023-05-08] MEDS ORDERED: FUROSEMIDE 40 MG/4 ML VIAL IV ONE (11:23)
[2023-05-08] MEDS: ALBUMIN HUMAN 25% 12.5 GM, FUROSEMIDE 100 MG in NA CHLORIDE 0.9% 40 ML IV SCH ×3 (11:58→21:27)
[2023-05-08] MEDS ORDERED: FUROSEMIDE 100 MG/10 ML VIAL IV ONE (12:05)
[2023-05-08] MEDS ORDERED: FUROSEMIDE 40 MG/4 ML VIAL ONE (12:09)
--- NOTE | 2023-05-08 12:13 | PN ---
Date of Progress Note: 05/08/2023 Subjective: The patient was admitted with perforated viscus. The patient had acute kidney injury secondary to poor perfusion ATN. Yesterday, we tried to convert her to nonoliguric with the Lasix. The patient was poorly responsive. Today, the first day the patient has been for 24 hours off pressor. Blood pressure maintained good. Physical Examination: Vital Signs: Blood pressure 154/94, pulse of 69, afebrile. General: The patient is oliguric. Chest: Crackles bilateral. Heart: S1, S2. Tachy. Abdomen: Soft, nontender. Dressing clean. Extremities: +3 edema. Neuro: The patient sedated on vent. Laboratory Data: Hemoglobin 7.2, trending down. Sodium 138, potassium 3.9, bicarb 19, BUN 31, creatinine 2.6, GFR 21, calcium 7.6, phosphorus 1.6, magnesium 2.1. Current Medications: The patient on include; 1. Albumin. 2. Meropenem. 3. Pantoprazole. 4. Magnesium oxide. 5. Potassium phosphate. Assessment And Plan: 1. Acute kidney injury secondary to poor perfusion ATN, questionable compartment syndrome, oliguric, over volume, started to have acidosis. I am going to try the patient again with converting her to non-oliguric with 80 mg of Lasix and Lasix drip. We will consult Surgery for temporary hemodialysis catheter as the patient over volume and started having acidosis and we will initiate dialysis. 2. Acidosis will be corrected with dialysis. 3. Hypophosphatemia. The patient is on supplement. I am going to go ahead and adjust her TPN and we will follow up. Given the fact that the patient received potassium, I will decrease the potassium to 40, increase the phos for 240, and we will continue to monitor the patient. 4. Hypertension. The patient was in shock. We will keep holding all blood pressure medication except diuresis to establish better volume control. 5. Anemia of chronic kidney disease. We will transfuse p.r.n. 6. Perforated viscus as by Surgery and Primary. time spend exam the patient face to face , reviewing data lab and radiology , placing order discussing with the family , Nursing staff and hospitalist >35 min NATALIIA Voice ID: [id number] Report ID: [id number] ELENI
--- NOTE | 2023-05-08 13:08 | P.PN ---
Subjective Date of Service: 05/08/23 Chief Complaint: Respiratory failure upper GI bleeding/s/p perforation Patient is sedated and not able to give any subjective complaint. Nurse reports an episode of bradycardia last night. She is on mechanical ventilation. Off vasopressin No recorded fever NG tube draining bloodstained fluid. Physical Examination - Vital Signs Temperature: 98.9 F Blood Pressure: 147/73 Pulse: 70 Respirations: 30 Pulse Ox (%): 100 Assessment And Plan - Plan Physical exam GEN: Unresponsive, on mechanical ventilation HEENT: ET tube, NG tube CV: Regular rate and rhythm, bilateral upper and lower extremity edema Pulm: Breath sounds diminished bilaterally. Mechanical ventilation. ABD: [address], J tube in place, abd soft, dressings CDI Integumentary: Ecchymosis right shoulder. 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 NG tube continues to drain bloodstained fluid. Strict NPO, continuous PPI. NG tube. PRN blood transfusion for hemoglobin less than 7. GI, General Surgery are following. TPN Acute hypoxic respiratory failure/acute lung injury Desatted during EGD. Continue mechanical ventilation Pulmonolgy is following. continue Vanc/merrum Acetaminophen toxicity Patient completed acetylcysteine IV infusion for APAP toxicity. Monitor LFTs daily Acute kidney injury Serum creatinine plateaued and stable at 2.6. Nephrology is following. IV fluids discontinued due to anasarca Continue TPN. Monitor renal function. Hypoglycemia Continue TPN Fingerstick glucose monitoring. Malnutrition/hypoalbuminemia Given albumin in ED, continue NPO for now TPN Bipolar disorder/depression/anxiety Hold oral meds, restart when appropriate. VTE: SCD Code: Full
[2023-05-08] MEDS: DEXMEDETOMIDINE HCL 1,000 MCG in NA CHLORIDE 0.9% 490 ML IV SCH (13:30)
[2023-05-08] MEDS ORDERED: AMINO ACIDS 5 %/DEXTROSE 20 % 2,000 ML, Lipids 20% 250 ML with MULTIVITAMINS INJ 10 ML,... IV SCH ×16 (17:00)
--- NOTE | 2023-05-08 17:35 | EKG ---
Test Date: 2023-05-05 Test Time: 03:43:41 Director Shopper Marketing: MEASUREMENT RESULTS: Intervals: Rate: 110 OH: 144 QRSD: 72 QT: 362 QTc: 489 [place]: P: 71 OH: 144 QRS: 35 T: 40 INTERPRETIVE STATEMENTS: Sinus tachycardia Possible Left atrial enlargement Cannot rule out Anterior infarct, age undetermined Abnormal ECG Compared to ECG 05/18/2015 23:47:41 Myocardial infarct finding now present Sinus rhythm no longer present Ventricular premature complex(es) no longer present Electronically Signed On 05-08-23 17:25:47 SENIOR INVESTMENT ANALYST by Luis Manuel Emmanuel
[2023-05-08] MEDS: LORazepam 2 MG/ML VIAL IV PRN (17:44)
[2023-05-08] MEDS ORDERED: Meropenem 500 MG VIAL IV ONE (20:53)
[2023-05-08 23:04] LABS: Hepatitis B Core IgM Nonreactive (Nonreactive); Hepatitis B Surface Ab - Quant < 3.10 mIU/mL (<8.0); Hepatitis B surface AG Interp. Nonreactive (Nonreactive)
[2023-05-09] MEDS: LORazepam 2 MG/ML VIAL IV PRN ×3 (00:41→23:27)
[2023-05-09] MEDS ORDERED: LORazepam 2 MG/ML VIAL ONE ×2 (00:54→23:39)
[2023-05-09] MEDS: ALBUMIN HUMAN 25% 12.5 GM, FUROSEMIDE 100 MG in NA CHLORIDE 0.9% 40 ML IV SCH ×3 (02:31→16:25)
[2023-05-09] MEDS: DEXMEDETOMIDINE HCL 1,000 MCG in NA CHLORIDE 0.9% 490 ML IV SCH (03:20)
[2023-05-09 06:11] LABS: Absolute Lymphocytes (CBC) 0.9 K/uL (0.7-4.9); Hematocrit 21.2 % (36.0-45.0); Lymphocytes % 7.3 % (15.3-44.8); MCV 114.1 fL (80-100); MPV 9.7 fL (7.6-11.3); Platelets 64 thou/uL (152-406); RBC Red Blood Cell Count 1.85 M/uL (3.86-4.86)
[2023-05-09 06:16] LABS: Protime INR 1.36
[2023-05-09 06:33] LABS: Albumin 1.9 g/dL (3.4-5.0); Bilirubin Total 2.5 mg/dL (0.2-1.0)
[2023-05-09 06:39] LABS: Potassium 2.6 mEq/L (3.5-5.1)
--- NOTE | 2023-05-09 07:08 | RAD REPORT ---
EXAM DESCRIPTION: RAD - Chest Single View - 05/09/2023 4:52 am CLINICAL HISTORY: resp failure COMPARISON: Chest Single View dated 05/08/2023; Chest Single View dated 05/07/2023; Chest Single Vie w dated 05/06/2023; Abdomen 1 View (KUB) dated 05/06/2023; Chest Abd Pelvis Wo Con dated 05/05/2023 FINDINGS: Lines: Left IJ approach central line with tip overlying the proximal SVC is in similar pos itioning. Endotracheal tube has retracted slightly and is at the superior margin of the clavicular he ads approximately 3.5 cm above the aortic arch. NG tube below the diaphragm Lungs: Similar widespread interstitial airspace disease. Pleural: No significant pleural effusions or pneumothorax. Cardiac: The heart size is within normal limits. Mediastinum: Within normal limits. Bones: No acute fractures. Other: None IMPRESSION: 1. Endotracheal tube retracted to the superior margin of the clavicular heads. If aortic arch positioning is desired, recommend advancing by 3.5 cm. 2. Similar widespread airspace disease which may reflect edema, ARDS, or multifocal pneumonia. .
[2023-05-09 07:11] LABS: Magnesium 1.8 mg/dL (1.6-2.4); Phosphorus 1.9 mg/dL (2.5-4.9)
[2023-05-09] MEDS: FENTANYL CITR 100 MCG/2 ML IV PRN ×3 (07:19→21:13)
--- NOTE | 2023-05-09 07:32 | ECHO ---
HEIGHT: 5 ft 4 in WEIGHT: 229 lb 8 oz DATE OF STUDY: 05/08/[address]: Gaurav Pelletier MD 2-DIMENSIONAL: YES M.MODE: YES DOPPLER: YES COLOR FLOW: YES TDS: PORTABLE: YES DEFINITY: BUBBLE STUDY: DIAGNOSIS: EDEMA CARDIAC HISTORY: CATHERIZATION: SURGERY: PROSTHETIC VALVE: PACEMAKER: MEASUREMENTS (cm) DIASTOLIC (NORMALS) SYSTOLIC (NORMALS) IVSd 0.8 (0.6-1.2) LA Diam 3.3 (1.9-4.0) LVEF 50% LVIDd 4.2 (3.5-5.7) LVIDs 3.3 (2.0-3.5) %FS 23% LVPWd 0.9 (0.6-1.2) Ao Diam 2.7 (2.0-3.7) 2 DIMENSIONAL ASSESSMENT: RIGHT ATRIUM: NORMAL LEFT ATRIUM: NORMAL RIGHT VENTRICLE: NORMAL LEFT VENTRICLE: NORMAL TRICUSPID VALVE: MILD TRICUSPID REGURGITATION MITRAL VALVE: MILD MITRAL REGURGITATION PULMONIC VALVE: NORMAL AORTIC VALVE: NORMAL PERICARDIAL EFFUSION: NONE AORTIC ROOT: NORMAL LEFT VENTRICULAR WALL MOTION: NORMAL DOPPLER/COLOR FLOW: SEE BELOW COMMENTS: 1. LOW NORMAL LEFT VENTRICULAR EJECTION FRACTION 50% 2. GRADE I DIASTOLIC DYSFUNCTION 3. MILD MITRAL REGURGITATION 4. MILD TRICUSPID REGURGITATION TECHNOLOGIST: KENZIE RAMIREZ
[2023-05-09] MEDS: POTASSIUM CL 40 MEQ in NA CHLORIDE 0.9% 500 ML IV SCH ×2 (07:54→12:00)
[2023-05-09] MEDS ORDERED: NA CHLORIDE 0.9% 100 ML ONE ×2 (08:00→20:38)
[2023-05-09] MEDS: Meropenem 500 MG in NA CHLORIDE 0.9% 100 ML IV SCH ×2 (08:08→20:37)
[2023-05-09] MEDS: THIAMINE 200 MG/2 ML INJ IVP SCH (08:08)
[2023-05-09] MEDS ORDERED: THIAMINE 200 MG/2 ML INJ ONE (08:21)
--- NOTE | 2023-05-09 08:31 | P.PN ---
Subjective Date of Service: 05/09/23 Chief Complaint: Respiratory failure upper GI bleeding/s/p perforation Patient is currently on a Precedex drip ventilator Unresponsive Physical Examination - Vital Signs Temperature: 98 F Blood Pressure: 145/74 Pulse: 76 Respirations: 26 Pulse Ox (%): 100 - Physical Exam General: Unresponsive Respiratory: Clear to auscultation bilaterally, Diminished Cardiovascular: No edema, Regular rate/rhythm, Normal S1 S2 Gastrointestinal: Hypoactive Assessment And Plan - Current Problems (Diagnosis) (1) Respiratory failure Current Visit: Yes Status: Acute Plan: Patient on a ventilator hemodynamically stable, breathing is elevated increase the PEEP chest x-ray shows acute lung injury most likely ARDS Labs reviewed white count hemoglobin stable patient is hypokalemic urine output has increased renal function improving patient has a cuff leak will ask anesthesia to change her endotracheal tube patient is on Precedex we will add scheduled fentanyl patient will require DVT prophylaxis. Transfusion of 1 unit of packed blood red blood cell once her hemoglobin is less than 7 Qualifiers: Chronicity: acute
[2023-05-09] MEDS: propofoL 1,000 MG/100 ML VIAL IV ONE ×2 (08:37→10:13)
[2023-05-09] MEDS ORDERED: ENOXAPARIN 30 MG/0.3 ML SQ SCH (09:00)
[2023-05-09] MEDS ORDERED: HEPARIN 5000 UNIT/ML 1 ML VIAL SQ SCH (09:00)
[2023-05-09] MEDS: MIDAZOLAM HCL 2 MG/2 ML INJ IV PRN (09:21)
[2023-05-09] MEDS ORDERED: MIDAZOLAM HCL 2 MG/2 ML INJ ONE (09:31)
[2023-05-09] MEDS ORDERED: POTASSIUM PHOS IN 0.9 % NACL 15 MMOL/250 ML BAG IV ONE (10:15)
[2023-05-09] MEDS: MAGNESIUM SULFATE 1 gm IVPB 1 GM/100 ML BAG IV ONE ×2 (10:17→10:20)
[2023-05-09] MEDS: propofoL 1,000 MG/100 ML VIAL IV SCH ×2 (10:30→18:01)
[2023-05-09 10:33] LABS: Arterial Blood Carboxyhemoglob 1.6 % (0-1.5)
[2023-05-09 10:48] LABS: Anisocytosis 2+; Blood Morphology Comment NOTED (NOT SEEN); Dohle Bodies PRESENT; Platelet Estimate DECR; Toxic Granulation 1+
[2023-05-09 10:49] LABS: Macrocytosis 2+; Polychromasia 1+
--- NOTE | 2023-05-09 12:13 | P.PN ---
Subjective Date of Service: 05/09/23 Chief Complaint: Respiratory failure upper GI bleeding/s/p perforation Patient noted to be tachypneic. Blood pressure has been stable and mildly hypertensive. NG tube output is still bloodstained No recorded fever Physical Examination - Vital Signs Temperature: 98 F Blood Pressure: 138/91 Pulse: 92 Respirations: 24 Pulse Ox (%): 100 Assessment And Plan - Plan Physical exam GEN: Unresponsive, on mechanical ventilation HEENT: ET tube, NG tube CV: Regular rate and rhythm, bilateral upper and lower extremity edema Pulm: Breath sounds diminished bilaterally. Mechanical ventilation. ABD: [address], J tube in place, abd soft, dressings CDI Integumentary: Ecchymosis right shoulder. 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 NG tube continues to drain bloodstained fluid. Strict NPO, Protonix drip. NG tube. PRN blood transfusion for hemoglobin less than 7. GI, General Surgery are following. TPN. Rate increased today. Acute hypoxic respiratory failure/acute lung injury Desatted during EGD. Continue mechanical ventilation Pulmonolgy is following. continue Vanc/merrum Acetaminophen toxicity Patient completed acetylcysteine IV infusion for APAP toxicity. Monitor LFTs daily Acute kidney injury Serum creatinine plateaued and stable at 2.6. No significant change from yesterday. Nephrology is following. Continue TPN. Rate increased. Patient also received IV Lasix and albumin per nephrology Monitor renal function. Monitor and optimize electrolytes. Hypoglycemia Continue TPN Fingerstick glucose monitoring. Malnutrition/hypoalbuminemia Given albumin in ED, continue NPO for now TPN Albumin as needed Anasarca Intermittent Lasix and albumin as needed. Thrombocytopenia Rapid drop in platelet count from yesterday Peripheral blood smear is not informative. Hold anticoagulant. Bipolar disorder/depression/anxiety Hold oral meds, restart when appropriate. VTE: SCD Code: Full
[2023-05-09] MEDS: PANTOPRAZOLE INJ 80 MG in NA CHLORIDE 0.9% 250 ML IV SCH ×2 (12:50→20:36)
[2023-05-09] MEDS: KCL 20 MEQ/100 mL IVPB 20 MEQ/100 ML BAG IV SCH ×3 (12:50→23:21)
[2023-05-09] MEDS ORDERED: ACETAMINOPHEN 650MG/RECT SUPP PR ONE (14:42)
--- NOTE | 2023-05-09 16:47 | PN ---
Date of Progress Note: 05/09/2023 Subjective: The patient was admitted with perforated viscus. The patient had GI bleed. The patient had acute kidney injury secondary to prolonged hypotension/compartment syndrome. The patient was oliguric. We started the patient on Lasix drip yesterday. The patient converted to nonoliguric, in fact converted to polyuric. Objective: Vital Signs: When I saw the patient, blood pressure of 138/90, pulse of 93, afebrile. The patient had very good urine output of 7 L, patient negative of 3 L. Chest: Crackles, bilateral base. Heart: S1, S2. Systolic murmur. Abdomen: Soft, nontender, with dressing on the abdomen, NG tube. Extremities: +3 edema. Neuro: Patient sedated. Laboratory Data: Hemoglobin 7.2, sodium 143, potassium 2.6, bicarb 23, BUN 37, creatinine 2.5, calcium 7.8, phosphorus 1.9, magnesium 1.8, albumin 1.9, corrected calcium 9.4. Current Medications: The patient on, it includes Lasix drip with albumin , meropenem 500 b.i.d., vancomycin, sedation, pantoprazole, Zofran. Assessment And Plan: 1. Acute kidney injury secondary to poor perfusion ATN, toxic ATN, compartment syndrome has been ruled out, used to be oliguric, currently polyuric, responded very well to the Lasix drip. Still on the overvolume side. I am going to decrease the Lasix drip to 10 mg to avoid further dehydration or over-diurese and we will monitor the patient. We will consider switching to pulse Lasix by tomorrow as the blood pressure stay stable and after we establish good volume control and we will follow up. 2. Hypokalemia, hypomagnesemia, hypophosphatemia. I will supplement and I already adjusted her TPN. We will increase TPN rate and decrease her sodium. Increase potassium, phosphorus, and magnesium. 3. Hypernatremia. Decrease sodium in the TPN and increase the rate and we will follow up. 4. Perforated viscus, status post surgery with the GI, as by Primary. Follow up with Surgery. 5. Respiratory failure secondary to overvolume. We will try to establish better volume control. Continue diuresis as above. time spend exam the patient face to face reviewing data lab and radiology placing order , discussing with the patient , discussing with the teamsite developer including hospitalist and nursing staff >35 min NATALIIA Voice ID: [id number] Report ID: [id number] [email or web address]
[2023-05-09] MEDS ORDERED: DEXTROSE 20% IV SCH ×11 (17:00)
[2023-05-09] MEDS ORDERED: [UNRECOGNIZED DRUG - OTHER] IV SCH ×5 (17:00)
[2023-05-09] MEDS ORDERED: AMINO ACIDS IV SCH ×11 (17:00)
[2023-05-09] MEDS ORDERED: SODIUM PHOSPHATE IV SCH ×11 (17:00)
[2023-05-09] MEDS ORDERED: [UNRECOGNIZED DRUG - OTHER] IV SCH ×6 (17:00)
[2023-05-09] MEDS ORDERED: VANCOMYCIN 1.5 GM in NA CHLORIDE 0.9% 500 ML IVPB SCH (18:00)
[2023-05-09] MEDS: VANCOMYCIN 1.25 GM in NA CHLORIDE 0.9% 250 ML IVPB SCH (18:34)
[2023-05-09] MEDS ORDERED: Meropenem 500 MG VIAL IV ONE (20:38)
[2023-05-09] MEDS ORDERED: FENTANYL CITR 100 MCG/2 ML ONE (21:25)
[2023-05-09] MEDS ORDERED: KCL 20 MEQ/100 ML IV ONE (23:30)
[2023-05-10] MEDS: KCL 20 MEQ/100 mL IVPB 20 MEQ/100 ML BAG IV SCH ×7 (00:44→22:00)
[2023-05-10] MEDS: propofoL 1,000 MG/100 ML VIAL IV SCH ×3 (00:45→14:46)
[2023-05-10] MEDS: ALBUMIN HUMAN 25% 12.5 GM, FUROSEMIDE 100 MG in NA CHLORIDE 0.9% 40 ML IV SCH ×2 (01:40→10:44)
[2023-05-10] MEDS: PANTOPRAZOLE INJ 80 MG in NA CHLORIDE 0.9% 250 ML IV SCH ×2 (05:07→20:40)
[2023-05-10 06:48] LABS: Absolute Lymphocytes (CBC) 1.1 K/uL (0.7-4.9); Hematocrit 21.2 % (36.0-45.0); Lymphocytes % 5.8 % (15.3-44.8); MCV 113.9 fL (80-100); MPV 10.9 fL (7.6-11.3); Platelets 80 thou/uL (152-406); RBC Red Blood Cell Count 1.86 M/uL (3.86-4.86)
[2023-05-10 07:07] LABS: Albumin 2.1 g/dL (3.4-5.0); Bilirubin Total 3.7 mg/dL (0.2-1.0); Phosphorus 3.7 mg/dL (2.5-4.9); Potassium 3.3 mEq/L (3.5-5.1); Protein, Total 5.3 g/dL (6.4-8.2)
--- NOTE | 2023-05-10 07:27 | RAD REPORT ---
EXAM DESCRIPTION: Ney Single View05/10/2023 4:53 am CLINICAL HISTORY: Shortness of breath COMPARISON: May 09, 2023 FINDINGS: Endotracheal tube not included in the field of view. Central venous line in place. Mild bilateral pulmonary opacities have partially resolved Heart is normal size IMPRESSION: Endotracheal tube not included in the field view and presumably has been removed. This s hould be correlated clinically. Partial resolution in mild bilateral pulmonary opacities
[2023-05-10] MEDS: THIAMINE 200 MG/2 ML INJ IVP SCH (07:57)
[2023-05-10] MEDS: Meropenem 500 MG in NA CHLORIDE 0.9% 100 ML IV SCH ×2 (07:57→20:32)
[2023-05-10] MEDS ORDERED: Meropenem 500 MG VIAL IV ONE ×2 (08:03→20:40)
[2023-05-10] MEDS ORDERED: THIAMINE 200 MG/2 ML INJ ONE (08:03)
[2023-05-10] MEDS ORDERED: NA CHLORIDE 0.9% 100 ML ONE ×2 (08:04→20:42)
[2023-05-10] MEDS: FENTANYL CITR 100 MCG/2 ML IV PRN ×2 (08:23→13:01)
[2023-05-10 09:09] LABS: Blood Morphology Comment NOTED (NOT SEEN); Platelet Estimate DECR
[2023-05-10 09:10] LABS: Anisocytosis 2+; Macrocytosis 2+
[2023-05-10] MEDS: LORazepam 2 MG/ML VIAL IV PRN (09:35)
[2023-05-10] MEDS ORDERED: LORazepam 2 MG/ML VIAL ONE (09:48)
--- NOTE | 2023-05-10 10:20 | P.PN ---
Subjective Date of Service: 05/10/23 Chief Complaint: Respiratory failure upper GI bleeding/s/p perforation Patient is still tachypneic on a ventilator hemodynamically stable unresponsive on propofol drip Review of Systems is unable to be obtained Physical Examination - Vital Signs Temperature: 98 F Blood Pressure: 127/81 Pulse: 113 Respirations: 20 Pulse Ox (%): 100 - Physical Exam General: Unresponsive Respiratory: Clear to auscultation bilaterally, Diminished Cardiovascular: No edema, Regular rate/rhythm, Normal S1 S2 Gastrointestinal: Hypoactive - Studies Microbiology Data (last 24 hrs): 05/05/23 04:02 Blood - Blood Aerobic Blood Culture - Final No growth in 5 days. 05/05/23 04:02 Blood - Blood Anaerobic Blood Culture - Final No growth in 5 days. 05/05/23 04:02 Blood - Blood Aerobic Blood Culture - Final No growth in 5 days. 05/05/23 04:02 Blood - Blood Anaerobic Blood Culture - Final No growth in 5 days. Assessment And Plan - Current Problems (Diagnosis) (1) Respiratory failure Current Visit: Yes Status: Acute Plan: Patient is currently unresponsive on a ventilator tracheal tube advanced by 4 cm renal function is improving hemoglobin is declined slightly he may benefit from blood transfusion patient is on pressure control FiO2 40% PEEP of 8 chest x-ray has improved we will try Dilaudid patient is on TPN Qualifiers: Chronicity: acute
[2023-05-10] MEDS: HYDROMORPHONE HCL 2 MG/ML inj IV PRN ×2 (10:47→19:15)
[2023-05-10 11:54] LABS: Arterial Blood Carboxyhemoglob 1.9 % (0-1.5); Blood Gas Oxyhemoglobin 94.7 % (94-97); Blood O2 Saturation 97.4 % (92-98.5)
--- NOTE | 2023-05-10 13:33 | P.PN ---
Subjective Date of Service: 05/10/23 Chief Complaint: Respiratory failure upper GI bleeding/s/p perforation Subjective: No new changes Physical Examination - Vital Signs Temperature: 97.3 F Blood Pressure: 126/73 Pulse: 101 Respirations: 17 Pulse Ox (%): 98 - Physical Exam General: Other (appears as her stated age) HEENT: Atraumatic, Normocephalic Neck: Supple Respiratory: Other (symmetric chest expansion) Cardiovascular: No rubs, No murmurs Gastrointestinal: Soft and benign, No rebound Musculoskeletal: No swelling Integumentary: No warmth Neurological: Normal tone Urinary: Other (no bladder distention) External genitalia: Deferred Rectal: Deferred - Studies Microbiology Data (last 24 hrs): 05/05/23 04:02 Blood - Blood Aerobic Blood Culture - Final No growth in 5 days. 05/05/23 04:02 Blood - Blood Anaerobic Blood Culture - Final No growth in 5 days. 05/05/23 04:02 Blood - Blood Aerobic Blood Culture - Final No growth in 5 days. 05/05/23 04:02 Blood - Blood Anaerobic Blood Culture - Final No growth in 5 days. Assessment And Plan - Plan 1. Acute kidney injury secondary to poor perfusion ATN, toxic ATN, improving. Volume intake excluding lasix drip is 110 cc/hr. Dc lasix gtt. Cont clinimix. 2. Hypokalemia, hypomagnesemia, hypophosphatemia. Replete prn. 3. Hypernatremia. IV hydration/TPN as above. 4. Gastric pouch perforation, status post surgery. Per other services. 5. Acute respiratory failure. Trace BLE edema. Intubated. FiO2 40%. Dc lasix gtt.
--- NOTE | 2023-05-10 13:50 | P.PN ---
Subjective Date of Service: 05/10/23 Chief Complaint: Respiratory failure upper GI bleeding/s/p perforation Significant urine output over the past 24 hours. Blood pressure has been stable. Edema improved NG tube output is still bloodstained No fever Remain on the vent. Physical Examination - Vital Signs Temperature: 97.3 F Blood Pressure: 126/73 Pulse: 101 Respirations: 17 Pulse Ox (%): 98 - Studies Microbiology Data (last 24 hrs): 05/05/23 04:02 Blood - Blood Aerobic Blood Culture - Final No growth in 5 days. 05/05/23 04:02 Blood - Blood Anaerobic Blood Culture - Final No growth in 5 days. 05/05/23 04:02 Blood - Blood Aerobic Blood Culture - Final No growth in 5 days. 05/05/23 04:02 Blood - Blood Anaerobic Blood Culture - Final No growth in 5 days. Assessment And Plan - Plan Physical exam GEN: Unresponsive, on mechanical ventilation HEENT: ET tube, NG tube CV: Regular rate and rhythm, bilateral upper and lower extremity edema Pulm: Breath sounds diminished bilaterally. Mechanical ventilation. ABD: [address], J tube in place, abd soft, dressings CDI Integumentary: Ecchymosis right shoulder. 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 NG tube continues to drain bloodstained fluid. Strict NPO, Protonix drip. NG tube. PRN blood transfusion for hemoglobin less than 7. GI, General Surgery are following. Continue TPN at the current rate. Transfuse 1 unit PRBC. Acute hypoxic respiratory failure/acute lung injury Desatted during EGD. Continue mechanical ventilation Pulmonolgy is following. continue Vanc/merrem Acetaminophen toxicity Patient completed acetylcysteine IV infusion for APAP toxicity. Monitor LFTs daily Acute kidney injury Serum creatinine improving. No significant change from yesterday. Nephrology is following. Continue TPN. Rate increased. Patient also received IV Lasix and albumin per nephrology Monitor renal function. Monitor and optimize electrolytes. Hypoglycemia Continue TPN Fingerstick glucose monitoring. Malnutrition/hypoalbuminemia Given albumin in ED, continue NPO for now TPN Albumin as needed Anasarca Significant urine out over the past 24 hours. Intermittent Lasix and albumin as needed. Thrombocytopenia Rapid drop in platelet count from yesterday Peripheral blood smear is not informative. Hold anticoagulant. Bipolar disorder/depression/anxiety Hold oral meds, restart when appropriate. VTE: SCD Code: Full
--- NOTE | 2023-05-10 14:30 | PN ---
Date of Progress Note: 05/10/2023 Reason For Service: History of gastric perforation with GI bleed, emergent laparotomy with defunctio nalization of the David-en-Y gastric bypass. Closure of the gastric rupture on the proximal pouch and putting a feeding jejunostomy. Subjective: The patient right now is under the care of the medical service trying to a treat her oth er comorbidities. From the surgical standpoint, incisions are intact. ARMIN drain is a minimal and als o NG tube minimal. Plan: Continue medical service. Do not use a feeding tube yet. Continue TPN. We will follow the p atient with you. [email or web address] Voice ID: [id number] Report ID: [id number]
[2023-05-10] MEDS ORDERED: AMINO ACIDS 5 %/DEXTROSE 20 % 2,000 ML, Lipids 20% 250 ML with MULTIVITAMINS INJ 10 ML,... IV SCH ×7 (17:00)
[2023-05-10 17:52] LABS: Hematocrit 24.9 % (36.0-45.0)
[2023-05-10] MEDS: MIDAZOLAM HCL 2 MG/2 ML INJ IV PRN (22:20)
[2023-05-10] MEDS ORDERED: MIDAZOLAM HCL 2 MG/2 ML INJ ONE (22:32)
[2023-05-11] MEDS: HYDROMORPHONE HCL 2 MG/ML inj IV PRN ×5 (01:00→21:40)
[2023-05-11] MEDS: PANTOPRAZOLE INJ 80 MG in NA CHLORIDE 0.9% 250 ML IV SCH ×2 (02:00→15:23)
[2023-05-11 05:04] LABS: Absolute Lymphocytes (CBC) 1.4 K/uL (0.7-4.9); Hematocrit 24.6 % (36.0-45.0); Lymphocytes % 5.6 % (15.3-44.8); MPV 10.8 fL (7.6-11.3); Platelets 122 thou/uL (152-406); RBC Red Blood Cell Count 2.25 M/uL (3.86-4.86)
[2023-05-11 05:17] LABS: Potassium 4.5 mEq/L (3.5-5.1)
[2023-05-11] MEDS ORDERED: Meropenem 500 MG VIAL IV ONE ×2 (08:13→20:56)
[2023-05-11] MEDS ORDERED: NA CHLORIDE 0.9% 100 ML ONE ×2 (08:13→20:56)
--- NOTE | 2023-05-11 08:20 | RAD REPORT ---
EXAM DESCRIPTION: Ney Single View05/11/2023 6:48 am CLINICAL HISTORY: Respiratory failure COMPARISON: 05/10/2023 FINDINGS: Endotracheal tube has its tip 7.7 centimeters above the top of the aortic arch Nasogastric tube in place. Central venous line overlies the SVC No change in right lung opacities. Worsening in left lung opacities Heart is normal size IMPRESSION: Endotracheal tube has its tip 7.7 centimeters above the top of the aortic arch. It shoul d be advanced
[2023-05-11] MEDS: FENTANYL CITR 100 MCG/2 ML IV PRN ×2 (08:30→12:45)
[2023-05-11] MEDS: Meropenem 500 MG in NA CHLORIDE 0.9% 100 ML IV SCH ×2 (08:34→20:46)
[2023-05-11] MEDS ORDERED: FENTANYL CITR 100 MCG/2 ML ONE ×2 (08:41→12:55)
[2023-05-11] MEDS: LORazepam 2 MG/ML VIAL IV PRN ×2 (08:48→13:14)
--- NOTE | 2023-05-11 09:12 | RAD REPORT ---
EXAM DESCRIPTION: Ney Single View05/11/2023 9:07 am CLINICAL HISTORY: Device placement endotracheal tube placement IMPRESSION: An endotracheal tube has been advanced. It is now in good position 7 millimeters above t he aortic arch bowel
--- NOTE | 2023-05-11 09:55 | P.PN ---
Subjective Date of Service: 05/11/23 Chief Complaint: Respiratory failure upper GI bleeding/s/p perforation unresponsive Patient is off the propofol drip is unresponsive he is to have some hiccups on the ventilator Review of Systems is unable to be obtained Physical Examination - Vital Signs Temperature: 97.3 F Blood Pressure: 130/73 Pulse: 115 Respirations: 19 Pulse Ox (%): 94 - Physical Exam General: Unresponsive Respiratory: Clear to auscultation bilaterally, Diminished Cardiovascular: No edema, Normal S1 S2 Gastrointestinal: Hypoactive - Studies Microbiology Data (last 24 hrs): 05/05/23 04:02 Blood - Blood Aerobic Blood Culture - Final No growth in 5 days. 05/05/23 04:02 Blood - Blood Anaerobic Blood Culture - Final No growth in 5 days. 05/05/23 04:02 Blood - Blood Aerobic Blood Culture - Final No growth in 5 days. 05/05/23 04:02 Blood - Blood Anaerobic Blood Culture - Final No growth in 5 days. Assessment And Plan - Current Problems (Diagnosis) (1) Respiratory failure Current Visit: Yes Status: Acute Plan: Respiratory failure oxygenation ventilation satisfactory mildly hypercapnic co unt is also elevated will add Diflucan high risk for superimposed fungal infection vital signs stable blood gases reviewed chest x-ray reviewed is clear may need to advance her endotracheal tube by another 2 cm I will order blood cultures sputum cultures patient is off propofol comatose Qualifiers: Chronicity: acute
[2023-05-11 10:10] LABS: Anisocytosis 2+; Basophilic Stippling 2+; Blood Morphology Comment NOTED (NOT SEEN); Hypersegmented Neutrophils PRESENT; Platelet Estimate ADEQ; White Blood Cell Scan OK (OK)
[2023-05-11] MEDS: FLUCONAZOLE 400 MG IVPB 400 MG/200 ML BAG IV SCH (10:46)
[2023-05-11] MEDS: propofoL 1,000 MG/100 ML VIAL IV SCH ×2 (13:18→20:47)
[2023-05-11] MEDS ORDERED: propofoL 1,000 MG/100 ML VIAL IV ONE (13:31)
--- NOTE | 2023-05-11 13:54 | P.PN ---
Subjective Date of Service: 05/11/23 Chief Complaint: Respiratory failure upper GI bleeding/s/p perforation unresponsive Patient has been tachypneic. Blood pressure has been stable. Edema improved No fever Unresponsive without sedation. Physical Examination - Vital Signs Temperature: 98.8 F Blood Pressure: 141/82 Pulse: 116 Respirations: 17 Pulse Ox (%): 97 Assessment And Plan - Plan Physical exam GEN: Unresponsive, on mechanical ventilation HEENT: ET tube, NG tube CV: Regular rate and rhythm, bilateral upper and lower extremity edema Pulm: Breath sounds diminished bilaterally. Mechanical ventilation. ABD: [address], J tube in place, abd soft, dressings CDI Integumentary: Ecchymosis right shoulder. Neuro: On ventilator, unresponsive without sedation. 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 NG tube draining coffee-ground fluid. Strict NPO, Protonix drip. NG tube. PRN blood transfusion for hemoglobin less than 7. GI, General Surgery are following. Continue TPN at the current rate. Total 3 units PRBC transfused. Acute hypoxic respiratory failure/acute lung injury Desatted during EGD. Continue mechanical ventilation. Sedation as needed. Pulmonolgy is following. continue Vanc/merrem Acetaminophen toxicity Patient completed acetylcysteine IV infusion for APAP toxicity. Monitor LFTs daily Acute kidney injury Serum creatinine continues to trend down. Nephrology is following. Continue TPN. Rate increased. Intermittent IV Lasix and albumin per nephrology Monitor renal function. Monitor and optimize electrolytes. Hypoglycemia Continue TPN Fingerstick glucose monitoring. Malnutrition/hypoalbuminemia Given albumin in ED, continue NPO for now TPN Albumin as needed Anasarca Significant urine out over the past 24 hours. Intermittent Lasix and albumin as needed. Thrombocytopenia Rapid drop in platelet count. Platelet count is now trending up Peripheral blood smear is not informative. Hold anticoagulant. Bipolar disorder/depression/anxiety Hold oral meds given n.p.o. status. VTE: SCD Code: Full
--- NOTE | 2023-05-11 15:14 | P.PN ---
Subjective Date of Service: 05/11/23 Chief Complaint: Respiratory failure upper GI bleeding/s/p perforation unresponsive Subjective No change in clinical status remained intubated cr improving will resume lasix IVP Monitor sodium level Physical exam General: intubated , sedated HEENT: Atraumatic, Normocephalic Neck: Supple, no elevated JVD Respiratory: CTAB Cardiovascular: No rubs, No murmurs Gastrointestinal: sot, multiple drainage tubes, wound dressed Ext : hands edema A/P # Acute kidney injury Due to ATN Cr improving enal dose meds avoid NSAID #Edema will change laisx to IVP #. Hypokalemia, hypomagnesemia, hypophosphatemia. Replete prn. #. Hypernatremia mild Cont TPN , if sodium cont to increase will increase free water content #. Gastric pouch perforation, status post surgery. Surgery following #Acuet respiratory failure Intubated Pulmonary following Physical Examination - Vital Signs Temperature: 98.8 F Blood Pressure: 107/73 Pulse: 119 Respirations: 20 Pulse Ox (%): 99
[2023-05-11] MEDS ORDERED: FUROSEMIDE 40 MG/4 ML VIAL IV SCH (15:17)
[2023-05-11] MEDS ORDERED: FUROSEMIDE 40 MG/4 ML VIAL ONE ×2 (15:32→20:57)
[2023-05-11] MEDS ORDERED: AMINO ACIDS IV SCH ×5 (17:00)
[2023-05-11] MEDS ORDERED: [UNRECOGNIZED DRUG - OTHER] IV SCH ×5 (17:00)
[2023-05-11] MEDS ORDERED: DEXTROSE 20% IV SCH ×5 (17:00)
[2023-05-11] MEDS ORDERED: SODIUM PHOSPHATE IV SCH ×5 (17:00)
[2023-05-11] MEDS: VANCOMYCIN 1.25 GM in NA CHLORIDE 0.9% 250 ML IVPB SCH (17:49)
[2023-05-11] MEDS: FUROSEMIDE 40 MG/4 ML VIAL IV SCH (20:46)
[2023-05-12] MEDS: HYDROMORPHONE HCL 2 MG/ML inj IV PRN ×3 (03:00→18:22)
[2023-05-12] MEDS: PANTOPRAZOLE INJ 80 MG in NA CHLORIDE 0.9% 250 ML IV SCH ×2 (04:50→08:00)
[2023-05-12 05:00] LABS: Absolute Lymphocytes (CBC) 1.1 K/uL (0.7-4.9); Hematocrit 22.4 % (36.0-45.0); Lymphocytes % 5.1 % (15.3-44.8); MCV 111.1 fL (80-100); Platelets 168 thou/uL (152-406); RBC Red Blood Cell Count 2.02 M/uL (3.86-4.86)
[2023-05-12 05:12] LABS: Magnesium 2.4 mg/dL (1.6-2.4); Phosphorus 4.4 mg/dL (2.5-4.9)
[2023-05-12 05:17] LABS: Albumin 1.8 g/dL (3.4-5.0); Bilirubin Total 3.7 mg/dL (0.2-1.0); Potassium 4.3 mEq/L (3.5-5.1); Protein, Total 5.4 g/dL (6.4-8.2)
[2023-05-12 05:33] LABS: Hematocrit 21.8 % (36.0-45.0)
[2023-05-12] MEDS: propofoL 1,000 MG/100 ML VIAL IV SCH ×3 (06:22→16:26)
[2023-05-12] MEDS ORDERED: NA CHLORIDE 0.9% 250 ML IV SCH (07:00)
[2023-05-12] MEDS ORDERED: NA CHLORIDE 0.9% 100 ML ONE ×3 (07:41→20:56)
[2023-05-12] MEDS: Meropenem 500 MG in NA CHLORIDE 0.9% 100 ML IV SCH ×2 (08:11→20:44)
[2023-05-12] MEDS: FUROSEMIDE 40 MG/4 ML VIAL IV SCH (08:11)
[2023-05-12] MEDS ORDERED: FUROSEMIDE 40 MG/4 ML VIAL ONE (08:22)
[2023-05-12] MEDS ORDERED: Meropenem 500 MG VIAL IV ONE ×2 (08:22→20:55)
--- NOTE | 2023-05-12 08:25 | RAD REPORT ---
EXAM DESCRIPTION: RAD - Chest Single View - 05/12/2023 6:07 am CLINICAL HISTORY: resp failure Chest pain. COMPARISON: <Comparisons> FINDINGS: Portable technique limits examination quality. Tip of the endotracheal tube is unchanged, approximately 1 cm above the level of the aortic arch. Lef t-sided IJ catheter its tip in the SVC. Mild bilateral pulmonary opacities are noted, appearing simil ar to comparative study, perhaps slightly worse on the right. The heart is mildly enlarged. IMPRESSION: Mild worsening of right lung aeration seen since yesterday's study
[2023-05-12] MEDS: FLUCONAZOLE 400 MG IVPB 400 MG/200 ML BAG IV SCH (09:09)
[2023-05-12 09:19] LABS: Anisocytosis 2+; Blood Morphology Comment NOTED (NOT SEEN); Platelet Estimate ADEQ; Toxic Granulation PRESENT; White Blood Cell Scan OK (OK)
[2023-05-12 09:20] LABS: Basophilic Stippling 1+
--- NOTE | 2023-05-12 09:49 | P.PN ---
Subjective Date of Service: 05/12/23 Chief Complaint: Respiratory failure Patient is doing better today more responsive Review of Systems is unable to be obtained Physical Examination - Vital Signs Temperature: 97.7 F Blood Pressure: 135/74 Pulse: 100 Respirations: 19 Pulse Ox (%): 98 - Physical Exam General: Unresponsive Respiratory: Clear to auscultation bilaterally, Diminished Cardiovascular: No edema, Regular rate/rhythm, Normal S1 S2 Assessment And Plan - Current Problems (Diagnosis) (1) Respiratory failure Current Visit: Yes Status: Acute Plan: Patient admitted with respiratory failure she is currently off propofol Vent changed to assist control chest x-ray is clear endotracheal tube satisfactory White count is declining continue with Diflucan patient is hyponatremic seen by nephrology patient is on TPN and IV Lasix she initially satisfactory FiO2 40% she is currently receiving a blood transfusion Qualifiers: Chronicity: acute
--- NOTE | 2023-05-12 10:44 | P.PN ---
Subjective Date of Service: 05/12/23 Chief Complaint: Respiratory failure Subjective pt admitted with Respiratory failure upper GI bleeding/s/p perforation required surgery and intubation toaday No change in clinical status remained intubated will change lasix to IVOP once daily Na 148, will change TPN to electrolytes free TPN Physical exam General: intubated , sedated HEENT: Atraumatic, Normocephalic Neck: Supple, no elevated JVD Respiratory: CTAB Cardiovascular: No rubs, No murmurs Gastrointestinal: sot, multiple drainage tubes, wound dressed Ext : hands edema A/P # Acute kidney injury Due to ATN Cr improving enal dose meds avoid NSAID #Edema improvinbg will reduce lasxi #. Hypokalemia, hypomagnesemia, hypophosphatemia. Replete prn. #. Hypernatremia will change lasix to IVOP once daily Na 148, will change TPN to electrolytes free TPN #. Gastric pouch perforation, status post surgery. Surgery following #Acuet respiratory failure Intubated Pulmonary following Physical Examination - Vital Signs Temperature: 97.7 F Blood Pressure: 135/74 Pulse: 100 Respirations: 19 Pulse Ox (%): 98
[2023-05-12 12:13] LABS: Hematocrit 23.7 % (36.0-45.0)
[2023-05-12] MEDS: PANTOPRAZOLE INJ 80 MG in D5W 250 ML IV SCH ×2 (12:36→23:08)
--- NOTE | 2023-05-12 13:40 | P.PN ---
Subjective Date of Service: 05/12/23 Chief Complaint: Respiratory failure Nursing staff report patient has been waking up more during sedation vacation. Edema improved Blood pressure has been stable. Physical Examination - Vital Signs Temperature: 98.6 F Blood Pressure: 128/69 Pulse: 90 Respirations: 20 Pulse Ox (%): 98 Assessment And Plan - Plan Physical exam GEN: Unresponsive, on mechanical ventilation HEENT: ET tube, NG tube CV: Regular rate and rhythm, bilateral upper and lower extremity edema Pulm: Breath sounds diminished bilaterally. Mechanical ventilation. ABD: [address], J tube in place, abd soft, dressings CDI Integumentary: Ecchymosis right shoulder. 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 NG tube draining coffee-ground fluid. Strict NPO, Protonix drip. J tube in place. PRN blood transfusion for hemoglobin less than 7. GI, General Surgery are following. Continue TPN at the current rate. Total 4 units PRBC transfused. Acute hypoxic respiratory failure/acute lung injury Desatted during EGD. Continue mechanical ventilation. Sedation as needed. Pulmonolgy is following. continue Vanc/merrem Sedation vacation daily to assess neurologic and respiratory status Acetaminophen toxicity Patient completed acetylcysteine IV infusion for APAP toxicity. Monitor LFTs daily Acute kidney injury Serum creatinine improved. Nephrology is following. Continue TPN. Intermittent IV Lasix and albumin per nephrology Monitor renal function. Monitor and optimize electrolytes. Hypoglycemia Continue TPN Fingerstick glucose monitoring. Malnutrition/hypoalbuminemia Given albumin in ED, continue NPO for now TPN Albumin as needed Anasarca Improved. Intermittent Lasix and albumin as needed. Thrombocytopenia Rapid drop in platelet count. Platelet count improved. Patient is no longer thrombocytopenic. Peripheral blood smear is not informative. Continue to hold anticoagulant. Bipolar disorder/depression/anxiety Hold oral meds given n.p.o. status. VTE: SCD. Avoid anticoagulants due to multiple drop in hemoglobin. Code: Full
[2023-05-12] MEDS ORDERED: AMINO ACIDS 5 %/DEXTROSE 20 % 2,000 ML IV SCH (17:00)
[2023-05-13] MEDS: HYDROMORPHONE HCL 2 MG/ML inj IV PRN ×2 (01:53→06:46)
[2023-05-13] MEDS: propofoL 1,000 MG/100 ML VIAL IV SCH ×4 (02:00→22:56)
[2023-05-13 05:13] LABS: Absolute Lymphocytes (CBC) 1.1 K/uL (0.7-4.9); Hematocrit 22.5 % (36.0-45.0); Lymphocytes % 5.9 % (15.3-44.8); MPV 10.5 fL (7.6-11.3); Platelets 204 thou/uL (152-406); RBC Red Blood Cell Count 2.16 M/uL (3.86-4.86)
[2023-05-13 06:10] LABS: Albumin 1.7 g/dL (3.4-5.0); Bilirubin Total 2.5 mg/dL (0.2-1.0); Potassium 3.3 mEq/L (3.5-5.1); Protein, Total 5.2 g/dL (6.4-8.2)
[2023-05-13] MEDS: KCL 20 MEQ/100 mL IVPB 20 MEQ/100 ML BAG IV SCH ×2 (06:32→08:30)
[2023-05-13] MEDS ORDERED: KCL 20 MEQ/100 mL IVPB 100 ML IV ONE (06:41)
[2023-05-13] MEDS: PANTOPRAZOLE INJ 80 MG in D5W 250 ML IV SCH ×3 (07:00→19:46)
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
[2023-05-13] MEDS: Meropenem 500 MG in NA CHLORIDE 0.9% 100 ML IV SCH ×2 (08:28→21:00)
[2023-05-13] MEDS ORDERED: Meropenem 500 MG VIAL IV ONE ×2 (08:29→21:01)
[2023-05-13] MEDS ORDERED: FUROSEMIDE 40 MG/4 ML VIAL ONE (08:30)
[2023-05-13] MEDS: FUROSEMIDE 40 MG/4 ML VIAL IV SCH (08:30)
[2023-05-13] MEDS ORDERED: NA CHLORIDE 0.9% 100 ML ONE ×2 (08:30→21:01)
--- NOTE | 2023-05-13 09:31 | P.PN ---
Subjective Date of Service: 05/12/23 Chief Complaint: Respiratory failure, gastric perforation proximal pouch with GI bleed Subjective: No new changes (from surgical standpoint) Review of Systems is unable to be obtained Physical Examination - Vital Signs Temperature: 97.6 F Blood Pressure: 132/75 Pulse: 72 Respirations: 20 Pulse Ox (%): 100 - Physical Exam General: Other (sedated) HEENT: PERRLA Neck: Supple Respiratory: Other (vent) Cardiovascular: Normal pulses Gastrointestinal: Hypoactive (intact incision) Musculoskeletal: No erythema, No tenderness Integumentary: No rashes Neurological: Other (sedated) Assessment And Plan - Plan NGT.ARMIN huertas monitoring. Mimimal sero sanguineous. No evidence of large active blleding or GI content leak consider LTAC arragement TUbe feed 10cc hour ONLY starting tomorrow Protronix DVT prophyl.
[2023-05-13] MEDS ORDERED: propofoL 1,000 MG/100 ML VIAL IV ONE ×2 (12:00→18:24)
[2023-05-13] MEDS ORDERED: VITAL HP 1,000 ML BOT RTH SCH (12:00)
[2023-05-13] MEDS: FLUCONAZOLE 400 MG IVPB 400 MG/200 ML BAG IV SCH (12:15)
--- NOTE | 2023-05-13 12:58 | P.PN ---
Subjective Date of Service: 05/13/23 Chief Complaint: Respiratory failure, gastric perforation proximal pouch with GI bleed Subjective: Improving Patient is 48 years of age on a ventilator she is currently improving more responsive dynamically stable but count is declining Review of Systems is unable to be obtained Physical Examination - Vital Signs Temperature: 97.6 F Blood Pressure: 132/75 Pulse: 72 Respirations: 20 Pulse Ox (%): 100 - Physical Exam General: Other (Patient opening eyes to painful stimuli) HEENT: Atraumatic Neck: Supple Respiratory: Clear to auscultation bilaterally, Diminished Cardiovascular: Regular rate/rhythm, Normal S1 S2, Edema Assessment And Plan - Current Problems (Diagnosis) (1) Respiratory failure Current Visit: Yes Status: Acute Plan: Patient admitted with respiratory failure doing better to SIMV pressure support mode of ventilation for now wean off propofol sedation Pseudomonas isolated in the sputum continue with Merrem vancomycin and Diflucan high risk for superimposed fungal infection renal function is improving renal surgery With using a PEG tube for small amounts of feeding Labs and meds reviewed chest x- rays ordered fully will try and wean her off from the ventilator
--- NOTE | 2023-05-13 14:00 | RAD REPORT ---
EXAM DESCRIPTION: RAD - Chest Single View - 05/13/2023 1:44 pm CLINICAL HISTORY: Resp failure on Vent Chest pain. COMPARISON: <Comparisons> FINDINGS: Portable technique limits examination quality. Mild areas of consolidation are seen in both medial lung bases which may represent atelectasis or inf iltrate. These appear mildly more prominent relative to yesterday's study. Endotracheal tube tip is a t the level of superior aortic arch. Enteric tube descends in the stomach. Left-sided venous catheter its tip in the SVC.
--- NOTE | 2023-05-13 14:56 | P.PN ---
Subjective Date of Service: 05/13/23 Chief Complaint: Respiratory failure Nursing staff report patient patient was more responsive and agitated during sedation vacation. She failed weaning trial. NG tube [id number]. Blood pressure has been stable. Physical Examination - Vital Signs Temperature: 97.6 F Blood Pressure: 137/76 Pulse: 87 Respirations: 20 Pulse Ox (%): 100 Assessment And Plan - Plan Physical exam GEN: Unresponsive, on mechanical ventilation HEENT: ET tube, NG tube CV: Regular rate and rhythm, bilateral upper and lower extremity edema improved. Pulm: Breath sounds diminished bilaterally. Mechanical ventilation. ABD: [address], J tube in place, abd soft, dressings CDI Integumentary: Ecchymosis right shoulder. 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 NG tube draining coffee-ground fluid. Protonix drip. Feeding via J tube at a very slow rate for a limited time per day recommended by surgery Dr. Foster. PRN blood transfusion for hemoglobin less than 7. GI, General Surgery are following. Continue TPN at the current rate. Total 4 units PRBC transfused. Sepsis Leukocytosis trended up to 24,000 and now trending down. Continue IV antibiotics. Infectious disease consult. Acute hypoxic respiratory failure/acute lung injury Continue mechanical ventilation. Sedation as needed. Pulmonolgy is following. continue Vanc/merrem Acetaminophen toxicity Patient completed acetylcysteine IV infusion for APAP toxicity. Monitor LFTs daily Acute kidney injury Serum creatinine improved. Nephrology is following. Continue TPN. Intermittent IV Lasix and albumin per nephrology Monitor renal function. Monitor and optimize electrolytes. Hypoglycemia Continue TPN Fingerstick glucose monitoring. Malnutrition/hypoalbuminemia TPN Albumin as needed J-tube feeding to begin today at a slower rate as mentioned above. Anasarca Improved. Intermittent Lasix and albumin as needed. Thrombocytopenia Rapid drop in platelet count. Platelet count improved. Patient is no longer thrombocytopenic. Peripheral blood smear is not informative. Continue to hold anticoagulant. Bipolar disorder/depression/anxiety Hold oral meds given n.p.o. status. VTE: SCD. Avoid anticoagulants due to multiple drop in hemoglobin. Code: Full
[2023-05-13] MEDS: LORazepam 2 MG/ML VIAL IV PRN ×2 (15:26→19:46)
[2023-05-13] MEDS ORDERED: LORazepam 2 MG/ML VIAL ONE (15:39)
--- NOTE | 2023-05-13 16:22 | PN ---
Date of Progress Note: 05/13/2023 Reason For Service: Status post GI bleed and perforated proximal pouch of the stomach with a large p erforated ulcer, and large amount of GI bleed. Subjective: Unfortunately, the area cannot be repaired, so the pouch was closed. The jejunostomy chaitanya cosby was already really off the stomach itself, so we clamped and tied that limb and basically drained the area profusely, defunctionalized the David-en-Y gastric bypass. She has been still dealing with m edical issues. She has respiratory failure, kidney insufficiency, some of the medical issues she has been dealing with. She is still anemic, although we saw the NG tube and the ARMIN drains x3, not drain ing any blood. Review of Systems: Unable to be obtained. Objective: Chest: Clear. Abdomen: Soft and depressible. ARMIN drains were reviewed today, milked out. No bleeding seen. No GI content. I saw a small drop coming from through the incision. So, I removed one staple. I do not see any redness on it and I saw some fluid in that area. I do not want that fluid in that area to co mpromise the fascia. The fascia was still intact. We irrigated the area and put some Nu Gauze over that region. We also examined the rest of the skin to make sure there is no decubitus forming. Extremities: Good capillary refill. Laboratory Data: WBC count is 18, coming down from 24, hemoglobin still 7.4, and platelets of 204. INR is 1.36. Potassium is 3.3, creatinine is 1.37, total bilirubin of 2.5, albumin is 1.7. Assessment: From the surgical standpoint, we checked ARMIN drain today. We checked the incisions. We even checked feeding tube area. From the nutrition standpoint, I am not sure how much that feeding t ube will help us since it is below the David-en-Y bypass and I am not sure exactly how much nutrition she is going to get to it, but as she improved for all the medical issues, then we might start feedin g those intestines with at least 10 cc an hour and checking residuals. At first, we are going to con marcie Dietitian to see which formula in her case will be more convenient with all this comorbidities t hat she has including diabetes including malnutrition, anemia, respiratory failure, kidney insufficie ncy. Once we have that formula, then we will decide how much will be the rate per hour, so we do not overwhelm the system proximally. [email or web address] Voice ID: [id number] Report ID: [id number]
[2023-05-13] MEDS ORDERED: DEXTROSE 10%-WATER 500 ML IV SCH (17:00)
[2023-05-13] MEDS ORDERED: AMINO ACIDS 5 %/DEXTROSE 20 % 2,000 ML, Lipids 20% 250 ML with MULTIVITAMINS INJ 10 ML,... IV SCH ×7 (17:00)
[2023-05-13] MEDS ORDERED: AMINO ACIDS 5 %/DEXTROSE 20 % 2,000 ML, Lipids 20% 250 ML with MULTIVITAMINS INJ 10 ML IV SCH ×3 (17:00)
[2023-05-13] MEDS: AA 5%/D20W/ELECTROLYTES-TPN 2,000 ML, Lipids 20% 250 ML with MULTIVITAMINS INJ 10 ML IV SCH ×3 (17:32)
[2023-05-13] MEDS ORDERED: VANCOMYCIN 1.5 GM in Dextrose 5%-Water 500 ML IVPB SCH (18:00)
[2023-05-13] MEDS ORDERED: VANCOMYCIN 1.5 GM in NA CHLORIDE 0.9% 500 ML IVPB SCH (18:00)
--- NOTE | 2023-05-13 22:58 | PN ---
Date of Progress Note: 05/14/2023 Chief Complaint: Acute kidney injury. Subjective: The patient remains on ventilator. She has multiple medical problems. She was admitted with respiratory failure and upper GI bleeding and was found to have perforation, required surgery. She remains intubated. She is off pressors. She is on TPN. She was found to have hypernatremia an d IV drip was changed and solution of IV drips were changed. Sodium level has improved. The patient is on TPN. She was found to have hypokalemia and TPN was modified. Review of Systems: Unobtainable. Objective: General: The patient remains intubated, sedated. HEENT: Atraumatic, normocephalic. Neck: No elevated JVD. Respiratory: Breath sounds were present bilaterally. Cardiovascular: S1, S2. No rubs, no murmurs. Abdomen: Multiple tubes, wound dressed. Extremities: Edema present in hands and feet. Impression And Plan: 1.Acute kidney injury due to ATN. Creatinine level is gradually improving. The patient has nonolig uric urine output. There is no indication to proceed with dialysis. The patient has ATN and renal f unction has improved over last several days. 2.Fluid overload. Edema improved. Continue Lasix as needed. 3.Hypokalemia, hypomagnesemia, hypophosphatemia. TPN was modified. The patient received IV potassi um chloride for hypokalemia. 4.Hyponatremia, gradually improving. Monitor electrolytes daily. 5.Gastric pouch perforation, status post surgery. 6.Acute respiratory failure, intubated. Pulmonary Service is following. EB/MODL Voice ID: [id number] Report ID: [id number]
[2023-05-14] MEDS: HYDROMORPHONE HCL 2 MG/ML inj IV PRN ×3 (00:45→21:22)
[2023-05-14] MEDS: propofoL 1,000 MG/100 ML VIAL IV SCH (04:36)
[2023-05-14 05:02] LABS: Hematocrit 20.8 % (36.0-45.0); Lymphocytes % 7.4 % (15.3-44.8); MCV 104.1 fL (80-100); MPV 10.9 fL (7.6-11.3); Platelets 132 thou/uL (152-406)
[2023-05-14 05:44] LABS: Albumin 1.6 g/dL (3.4-5.0); Bilirubin Total 1.7 mg/dL (0.2-1.0); Magnesium 2.1 mg/dL (1.6-2.4); Phosphorus 2.5 mg/dL (2.5-4.9); Potassium 3.3 mEq/L (3.5-5.1)
[2023-05-14] MEDS: PANTOPRAZOLE INJ 80 MG in D5W 250 ML IV SCH ×2 (06:27→19:00)
[2023-05-14] MEDS: KCL 20 MEQ/100 mL IVPB 20 MEQ/100 ML BAG IV SCH ×2 (06:27→08:20)
[2023-05-14] MEDS ORDERED: NA CHLORIDE 0.9% 250 ML ONE (07:35)
--- NOTE | 2023-05-14 07:51 | RAD REPORT ---
EXAM DESCRIPTION: RAD - Chest Single View - 05/14/2023 4:54 am CLINICAL HISTORY: Resp failure on Vent Chest pain. COMPARISON: Chest Single View dated 05/13/2023; Chest Single View dated 05/12/2023; Chest Single Vie w dated 05/11/2023; Chest Single View dated 05/11/2023 FINDINGS: Portable technique limits examination quality. Tip of the endotracheal tube is at the level of the superior aortic arch. Enteric tube descends in th e upper abdomen. Left-sided venous catheter its tip in the SVC. Asymmetric pulmonary opacities are pr esent, mildly greater on the right and likely since related by patient rotation. Opacity in the left lung base suggests a small moderate left pleural effusion.
[2023-05-14] MEDS ORDERED: DEXMEDETOMIDINE HCL 200 MCG in NA CHLORIDE 0.9% 98 ML IV SCH (08:00)
[2023-05-14] MEDS ORDERED: NA CHLORIDE 0.9% 100 ML ONE ×2 (08:07→20:28)
[2023-05-14] MEDS ORDERED: FUROSEMIDE 20 MG/ 2ML VIAL ONE (08:07)
[2023-05-14] MEDS ORDERED: Meropenem 500 MG VIAL IV ONE ×2 (08:07→20:28)
[2023-05-14] MEDS: Meropenem 500 MG in NA CHLORIDE 0.9% 100 ML IV SCH ×2 (08:20→20:23)
[2023-05-14] MEDS: FUROSEMIDE 40 MG/4 ML VIAL IV SCH (08:27)
[2023-05-14] MEDS ORDERED: FUROSEMIDE 40 MG/4 ML VIAL ONE (08:39)
--- NOTE | 2023-05-14 09:04 | P.PN ---
Date of Service: 05/14/23 Chief Complaint: Respiratory failure Subjective: Patient remains intubated and sedated. No acute events reported overnight. Continue current plan of care. Physical Examination Temp Pulse Resp BP Pulse Ox 97.5 F 81 19 126/71 100 05/14/23 07:00 05/14/23 08:27 05/14/23 08:00 05/14/23 08:27 05/14/23 08:00 General: Intubated, sedated HEENT: Atraumatic, Normocephalic. ET tube. Respiratory: Diminished bilaterally. On mechanical ventilation. Cardiovascular: Trace BLE edema. Gastrointestinal: Abdominal surgical incision sites with ARMIN drain x 3. 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 Foster on 05/05. - Blood cultures 05/05: No growth to date - Repeat blood culture 05/11: No growth 24 hours - Urine culture 05/06: No growth to date - ARMIN drains with serous / serosanguinous drainage. - Pus drainage from midline abdominal incision site by Dr. Foster at bedside 05/13 Acute Hypoxic Respiratory Failure - intubated and sedated - pulmonology following - sputum culture 05/11: Pseudomonoas aeruginosa Antibiotics - Vancomycin (started 05/06-) - Meropenem (started 05/06-) - Fluconazole (started 05/11-) due to high risk/concern for superimposed fungal infection Leukocytosis slightly improving (WBC 21 -> 18.4 -> 13.2) Afebrile Recommendations - Continue Meropenem, Vancomycin and Fluconazole for now. On day 9 of antibiotic therapy. - Abdominal surgical site wound care per surgery team - Monitor WBC and fever trends - Oral care while intubated - Pressure offloading measures. Turn patient q2h, wedge pillow, low air-loss mattress. Apply barrier cream to sacrum/buttocks Case discussed with Bam Kaye
[2023-05-14] MEDS: MIDAZOLAM HCL 2 MG/2 ML INJ IV PRN (09:18)
[2023-05-14] MEDS: FLUCONAZOLE 400 MG IVPB 400 MG/200 ML BAG IV SCH (09:19)
[2023-05-14] MEDS ORDERED: MIDAZOLAM HCL 2 MG/2 ML INJ ONE (09:29)
[2023-05-14] MEDS: LORazepam 2 MG/ML VIAL IV PRN (10:02)
[2023-05-14] MEDS ORDERED: LORazepam 2 MG/ML VIAL ONE (10:12)
[2023-05-14] MEDS ORDERED: HYDROMORPHONE HCL 2 MG/ML inj ONE (11:00)
--- NOTE | 2023-05-14 11:48 | P.PN ---
Subjective Date of Service: 05/14/23 Chief Complaint: Respiratory failure Patient is doing better more alert responsive and cooperative vital signs stable Review of Systems is unable to be obtained Physical Examination - Vital Signs Temperature: 97.5 F Blood Pressure: 108/70 Pulse: 72 Respirations: 18 Pulse Ox (%): 99 - Physical Exam General: Alert, Cooperative Neck: Supple Respiratory: Clear to auscultation bilaterally, Diminished Cardiovascular: Normal S1 S2, Edema Gastrointestinal: Hypoactive Assessment And Plan - Current Problems (Diagnosis) (1) Respiratory failure Current Visit: Yes Status: Acute Plan: Patient is doing much better more responsive plan to wean off propofol start on Precedex drip minimize sedation chest x-ray is clear endotracheal tube satisfactory patient is severely anemic white count is declining consider blood transfusion Pseudomonas isolated in the sputum Qualifiers: Chronicity: acute
[2023-05-14] MEDS: DEXMEDETOMIDINE HCL 1,000 MCG in NA CHLORIDE 0.9% 490 ML IV SCH (11:49)
--- NOTE | 2023-05-14 12:13 | P.PN ---
Date of Service: 05/14/23 Subjective: Nursing staff report patient patient was opening eyes off sedation/agitated She failed weaning trial. NG tube [id number]. Blood pressure has been stable. ROS: 10 point ROS as noted above, otherwise negative Physical exam GEN: Unresponsive, on mechanical ventilation HEENT: ET tube, NG tube CV: Regular rate and rhythm, bilateral upper and lower extremity edema improved. Pulm: Breath sounds diminished bilaterally. Mechanical ventilation. ABD: [address], J tube in place, abd soft, dressings CDI Integumentary: Ecchymosis right shoulder. 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 NG tube draining coffee-ground fluid. Protonix drip. Feeding via J tube at a very slow rate for a limited time per day recommended by surgery Dr. Foster. Given one unit PRBC 05/14 for hgb 6.8 GI, General Surgery are following. Continue TPN at the current rate. Total 5 units PRBC transfused. Sepsis Leukocytosis trended up to 24,000 and now continuing to trend down Continue IV antibiotics/antifungals Infectious disease consult. Acute hypoxic respiratory failure/acute lung injury Continue mechanical ventilation. Sedation as needed. Pulmonolgy is following. continue Vanc/merrem Acetaminophen toxicity Patient completed acetylcysteine IV infusion for APAP toxicity. Monitor LFTs daily Acute kidney injury Serum creatinine improved. Nephrology is following. Continue TPN. Intermittent IV Lasix and albumin per nephrology Monitor renal function. Monitor and optimize electrolytes. Hypoglycemia Continue TPN Fingerstick glucose monitoring. Malnutrition/hypoalbuminemia TPN Albumin as needed J-tube feeding to begin today at a slower rate as mentioned above. Anasarca Improved. Intermittent Lasix and albumin as needed. Thrombocytopenia Rapid drop in platelet count. Platelet count improved. Patient is no longer thrombocytopenic. Peripheral blood smear is not informative. Continue to hold anticoagulant. Bipolar disorder/depression/anxiety Hold oral meds given n.p.o. status. Will need LTAC at DC VTE: SCD. Avoid anticoagulants due to multiple drop in hemoglobin. Code: Surgical Services Manager Spent Managing Pts Care (In Minutes): 35 <Genaro Yepez - Last Filed: 05/14/23 12:10> Patient seen and examined on rounds this morning. Plan of care discussed with TIRE WRAPPER Lucho. Agree with plan as noted above with the following additions/corrections: Failed vent weaning trial yesterday Continue trials of weaning Underwent bedside I&D by Dr. Foster yesterday of her midline incision with some purulent drainage/possible necrotic tissue Leukocytosis improving Continue antibiotics Continue TPN Hemoglobin downtrending, 1 unit PRBC ordered today <Bharath Gaffney - Last Filed: 05/14/23 17:41>
[2023-05-14 14:07] LABS: Hematocrit 25.3 % (36.0-45.0)
[2023-05-14] MEDS: AA 5%/D20W/ELECTROLYTES-TPN 2,000 ML IV SCH (19:00)
--- NOTE | 2023-05-14 23:27 | PN ---
Date of Progress Note: 05/14/2023 Chief Complaint: Acute kidney injury. Subjective: The patient remains on ventilator. She has multiple medical problems including history of perforated ulcer, required surgery. Currently, she is off pressors. She is intubated and remains ventilated. Patient was started on TPN. Electrolytes are fluctuating. The patient is receiving treatment for hypokalemia. Review of Systems: Unobtainable. Physical Examination: Lungs: Clear to auscultation bilaterally. Heart: S1, S2. Abdomen: Soft. Extremities: No edema. Impression And Plan: 1. Acute kidney injury due to ATN. Creatinine level is gradually improving. The patient has nonoliguric urine output. There is no indication to proceed with dialysis. 2. Hypokalemia, hypomagnesemia, hypophosphatemia, TPN was not modified. 3. Hypernatremia, gradually improving. 4. Gastric pouch perforation, status post surgery. Further recommendation from Primary Team. ALLA/JIMMIE Voice ID: [id number] Report ID: [id number] [facility]ITALNavjot
[2023-05-15] MEDS: LORazepam 2 MG/ML VIAL IV PRN (00:28)
[2023-05-15] MEDS: DEXMEDETOMIDINE HCL 1,000 MCG in NA CHLORIDE 0.9% 490 ML IV SCH ×2 (02:18→17:10)
[2023-05-15] MEDS: HYDROMORPHONE HCL 2 MG/ML inj IV PRN ×5 (02:25→21:45)
[2023-05-15] MEDS: PANTOPRAZOLE INJ 80 MG in D5W 250 ML IV SCH ×2 (03:32→10:56)
[2023-05-15 04:58] LABS: MCV 101.5 fL (80-100); MPV 10.3 fL (7.6-11.3); Platelets 238 thou/uL (152-406); RBC Red Blood Cell Count 2.36 M/uL (3.86-4.86)
[2023-05-15 05:21] LABS: Albumin 1.6 g/dL (3.4-5.0); Bilirubin Total 1.4 mg/dL (0.2-1.0); Magnesium 2.2 mg/dL (1.6-2.4); Potassium 4.1 mEq/L (3.5-5.1); Protein, Total 5.5 g/dL (6.4-8.2)
--- NOTE | 2023-05-15 08:13 | RAD REPORT ---
EXAM DESCRIPTION: RADChest Single View05/15/2023 4:41 am CLINICAL HISTORY: Resp failure on Vent COMPARISON: Chest Single View dated 05/14/2023; Chest Single View dated 05/13/2023; Chest Single Vie w dated 05/12/2023; Chest Single View dated 05/11/2023 TECHNIQUE: Portable AP view of the chest. FINDINGS: Endotracheal tube, enteric tube, and left IJ CVC are unchanged in position. Stable hazy op acities in the perihilar regions and right lung base. Partial improvement of aeration in the left luigi g base. Probable trace left effusion, appears partially improved. No pneumothorax or right effusion. The cardiomediastinal contours are unremarkable. IMPRESSION: Partial improvement of aeration in the left lung base, otherwise stable findings as abov e which may relate to atelectasis or central congestion, less likely ongoing pneumonia.
[2023-05-15] MEDS: FUROSEMIDE 40 MG/4 ML VIAL IV SCH (08:29)
[2023-05-15] MEDS: Meropenem 500 MG in NA CHLORIDE 0.9% 100 ML IV SCH (08:29)
--- NOTE | 2023-05-15 08:37 | P.PN ---
Date of Service: 05/15/23 Chief Complaint: Respiratory failure Subjective: Patient seen and examined in the ICU. Patient opens eyes and moves head, does not follow commands at this time. No acute events reported overnight. Physical Examination Temp Pulse Resp BP Pulse Ox 97.9 F 70 17 147/80 H 100 05/15/23 04:00 05/15/23 08:29 05/15/23 06:00 05/15/23 06:00 05/15/23 06:00 General: Intubated, sedated HEENT: Atraumatic, Normocephalic. ET tube. Respiratory: Diminished bilaterally. On mechanical ventilation. Cardiovascular: Trace BLE edema. Gastrointestinal: Abdominal surgical incision sites with ARMIN drain x 3. 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 Foster on 05/05. - Blood cultures 05/05: No growth to date - Repeat blood culture 05/11: No growth 24 hours - Urine culture 05/06: No growth to date - ARMIN drains with serous / serosanguinous drainage. - Pus drainage from midline abdominal incision site by Dr. Foster at bedside 05/13 Acute Hypoxic Respiratory Failure - intubated and sedated - pulmonology following - sputum culture 05/11: Pseudomonoas aeruginosa Antibiotics - Vancomycin (started 05/06-) - Meropenem (started 05/06-) - Fluconazole (started 05/11-) due to high risk/concern for superimposed fungal infection Leukocytosis slightly improving (WBC 18.4 -> 13.2 -> 12.2) Afebrile Recommendations - Continue Meropenem, Vancomycin and Fluconazole for now. On day 10 of antibiotic therapy. - Abdominal surgical site wound care per surgery team - Monitor WBC and fever trends - Oral care while intubated - Pressure offloading measures. Turn patient q2h, wedge pillow, low air-loss mattress. Apply barrier cream to sacrum/buttocks Case discussed with Bam Kaye
[2023-05-15] MEDS ORDERED: NA CHLORIDE 0.9% 100 ML ONE ×3 (08:41→16:44)
[2023-05-15] MEDS ORDERED: Meropenem 500 MG VIAL IV ONE ×2 (08:41→09:03)
[2023-05-15] MEDS ORDERED: FUROSEMIDE 40 MG/4 ML VIAL ONE (08:41)
[2023-05-15] MEDS ORDERED: Meropenem 1,000 MG in NA CHLORIDE 0.9% 100 ML IV SCH (09:00)
--- NOTE | 2023-05-15 09:27 | P.PN ---
Date of Service: 05/15/23 Subjective: Nursing staff report patient patient was opening eyes off sedation/agitated She failed weaning trial. NG tube [id number]. Blood pressure has been stable. ROS: 10 point ROS as noted above, otherwise negative Physical exam GEN: Unresponsive, on mechanical ventilation HEENT: ET tube, NG tube CV: Regular rate and rhythm, bilateral upper and lower extremity edema improved. Pulm: Breath sounds diminished bilaterally. Mechanical ventilation. ABD: [address], J tube in place, abd soft, dressings CDI Integumentary: Ecchymosis right shoulder. 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 NG tube draining gastric fluid no sign of blood Protonix drip. Feeding via J tube at a very slow rate for a limited time per day recommended by surgery Dr. Foster. Given one unit PRBC 05/14 for hgb 6.8 GI, General Surgery are following. Continue TPN at the current rate. Total 5 units PRBC transfused. Sepsis Leukocytosis trended up to 24,000 and now continuing to trend down Continue IV antibiotics/antifungals Infectious disease consult. Acute hypoxic respiratory failure/acute lung injury Continue mechanical ventilation, possible extubation today Sedation as needed. Pulmonolgy is following. continue Vanc/merrem Acetaminophen toxicity Patient completed acetylcysteine IV infusion for APAP toxicity. Monitor LFTs daily Acute kidney injury Serum creatinine improved. Nephrology is following. Continue TPN. Intermittent IV Lasix and albumin per nephrology Monitor renal function. Monitor and optimize electrolytes. Hypoglycemia Continue TPN Fingerstick glucose monitoring. Malnutrition/hypoalbuminemia TPN Albumin as needed J-tube feeding to begin today at a slower rate as mentioned above. Anasarca Improved. Intermittent Lasix and albumin as needed. Thrombocytopenia Rapid drop in platelet count. Platelet count improved. Patient is no longer thrombocytopenic. Peripheral blood smear is not informative. Continue to hold anticoagulant. Bipolar disorder/depression/anxiety Hold oral meds given n.p.o. status. Will need LTAC at DC VTE: SCD. Avoid anticoagulants due to multiple drop in hemoglobin. Code: Restaurant Area Manager Spent Managing Pts Care (In Minutes): 35 <Genaro Yepez - Last Filed: 05/15/23 09:25> Patient seen and examined on rounds this morning. Plan of care reviewed with PSYCHOTHERAPIST Lucho and agree as noted above with following addition/correction: No acute events overnight. Patient more awake/alert. vent weaning trials again today still not moving b/l arms well, but sensation appears to be intact - to pain, however not much withdraw from pain in b/l hands will check CT head to r/o anoxic brain injury / CVA <Bharath Gaffney - Last Filed: 05/15/23 21:49>
[2023-05-15] MEDS ORDERED: Meropenem 500 MG in NA CHLORIDE 0.9% 100 ML IV ONE (09:30)
[2023-05-15] MEDS: FLUCONAZOLE 400 MG IVPB 400 MG/200 ML BAG IV SCH (10:56)
--- NOTE | 2023-05-15 11:53 | P.PN ---
Subjective Date of Service: 05/15/23 Chief Complaint: Respiratory failure Patient is doing much better more alert responsive cooperative hemodynamically stable off propofol Review of Systems is unable to be obtained Physical Examination - Vital Signs Temperature: 98.3 F Blood Pressure: 140/75 Pulse: 69 Respirations: 16 Pulse Ox (%): 100 - Physical Exam General: Alert, Cooperative Respiratory: Clear to auscultation bilaterally Cardiovascular: Regular rate/rhythm, Normal S1 S2, Edema Assessment And Plan - Current Problems (Diagnosis) (1) Respiratory failure Current Visit: Yes Status: Acute Plan: Patient is improving hemodynamically stable plan to wean off the ventilator White count is declining DC vancomycin recheck sputum cultures Labs reviewed chest x-ray also reviewed hemoglobin stable at 7.7 start weaning Lovenox for DVT prophylaxis chest x-ray reviewed Qualifiers: Chronicity: acute
[2023-05-15] MEDS: ENOXAPARIN 40 MG/0.4 ML SQ SCH (12:38)
[2023-05-15] MEDS ORDERED: SODIUM CHLORIDE 0.9% 10ML INJ IV PRN (13:19)
--- NOTE | 2023-05-15 14:11 | RAD REPORT ---
EXAM DESCRIPTION: CT - Head Brain Wo Cont - 05/15/2023 1:55 pm CLINICAL HISTORY: Alteration of awareness/confusion COMPARISON: May 05, 2023 TECHNIQUE: Computed axial tomography of the head was obtained. IV contrast was not requested. All CT scans are performed using dose optimization technique as appropriate and may include automated exposure control or mA/KV adjustment according to patient size. FINDINGS: An intracranial bleed is not seen The ventricles are normal in caliber No extra-axial fluid collection is noted. No significant hyperdensity within the brain Fluid within the sinuses/ mastoids is not seen. IMPRESSION: No acute intracranial abnormality is seen If patient's symptoms persist MRI of the brain would be recommended
[2023-05-15] MEDS: FENTANYL CITR 100 MCG/2 ML IV PRN ×2 (15:57→20:28)
[2023-05-15] MEDS ORDERED: FENTANYL CITR 100 MCG/2 ML ONE (16:09)
--- NOTE | 2023-05-15 16:25 | PN ---
Date of Progress Note: 05/15/2023 Diagnosis: Perforation of the stomach, gastric ulcer, gastric rupture in the David-en-Y pouch from ul cer and also a defunctionalization of the David-en-Y gastric bypass, a feeding, laparotomy, GI bleed. Subjective: The patient is slowly improving and is still on the ventilator. Review of Systems: Unable to be obtained. Objective: Vital Signs: Reviewed. Chest: Clear. Abdomen: Soft and depressible. Incision reviewed. No sign of infection. The fascia still viable. The wound was explored once again. Extremities: Good capillary refill. ARMIN drains reviewed. No evidence of active GI bleed. NG tube, no active large bleeding. Laboratory Data: Blood work shows WBC count of 12.2, hemoglobin of 7.7, and platelets of 238. INR i s 1.36. Potassium is 4.1, creatinine is 0.9, total bili of 1.4. Albumin is 1.6. Plan: We started tube feed. Once again, this tube feed is distal in the small bowel. The amount of calories that will be absorbed is unknown at this moment. So, we are going to continue with the TPN . We saw kidney function is improving, H and H per primary doctor. Continue monitoring. HM/MODL Voice ID: [id number] Report ID: [id number]
[2023-05-15] MEDS: AA 5%/D20W/ELECTROLYTES-TPN 2,000 ML, Lipids 20% 250 ML with MULTIVITAMINS INJ 10 ML IV SCH ×3 (16:32)
[2023-05-15] MEDS: Meropenem 1,000 MG in NA CHLORIDE 0.9% 100 ML IV SCH (16:32)
[2023-05-15] MEDS ORDERED: Meropenem 1000 MG/VIAL IV ONE (16:44)
[2023-05-15] MEDS ORDERED: VANCOMYCIN 1.5 GM in Dextrose 5%-Water 500 ML IVPB SCH (18:00)
--- NOTE | 2023-05-15 18:50 | P.PN ---
Subjective Date of Service: 05/15/23 Chief Complaint: Respiratory failure Subjective: Other (remains bedridden) Physical Examination - Vital Signs Temperature: 98.2 F Blood Pressure: 160/83 Pulse: 74 Respirations: 16 Pulse Ox (%): 100 - Physical Exam General: Other (appears as her stated age) HEENT: Atraumatic, Normocephalic Neck: Supple Respiratory: Other (symmetric chest expansion) Cardiovascular: No rubs, No murmurs Gastrointestinal: Soft and benign, No guarding Musculoskeletal: No clubbing Integumentary: No warmth Neurological: Normal tone Urinary: Other (no bladder distention) External genitalia: Deferred Rectal: Deferred Assessment And Plan - Plan 1. Acute kidney injury secondary to poor perfusion ATN, toxic ATN. Improved. Cont TPN & tube feeds same rate. Monitor renal panel. 2. Hypokalemia, hypomagnesemia, hypophosphatemia. Replete prn. 3. Hypernatremia. Resolving. IV hydration/TPN/tube feeding as above. 4. Gastric pouch perforation, status post surgery. Per other services. 5. Acute respiratory failure. Per ICU team 6. Anemia. pRBC transf prn for Hgb < 7.0.
[2023-05-15] MEDS ORDERED: VANCOMYCIN 250 MG in NA CHLORIDE 0.9% 100 ML IVPB ONE (20:00)
[2023-05-15] MEDS: PANTOPRAZOLE 40 MG INJ IVP SCH (20:28)
[2023-05-16] MEDS: Meropenem 1,000 MG in NA CHLORIDE 0.9% 100 ML IV SCH ×3 (00:38→16:25)
[2023-05-16] MEDS: FENTANYL CITR 100 MCG/2 ML IV PRN ×2 (00:38→11:33)
[2023-05-16] MEDS ORDERED: Meropenem 1000 MG/VIAL IV ONE ×3 (00:47→16:34)
[2023-05-16] MEDS ORDERED: NA CHLORIDE 0.9% 100 ML ONE ×3 (00:48→16:34)
[2023-05-16] MEDS: LORazepam 2 MG/ML VIAL IV PRN ×2 (01:38→14:01)
[2023-05-16] MEDS: HYDROMORPHONE HCL 2 MG/ML inj IV PRN ×5 (03:52→21:45)
[2023-05-16 04:35] LABS: Hematocrit 22.1 % (36.0-45.0); MCV 101.1 fL (80-100); Platelets 273 thou/uL (152-406); RBC Red Blood Cell Count 2.18 M/uL (3.86-4.86)
[2023-05-16 04:54] LABS: Albumin 1.7 g/dL (3.4-5.0); Bilirubin Total 1.2 mg/dL (0.2-1.0); Phosphorus 2.9 mg/dL (2.5-4.9); Potassium 3.9 mEq/L (3.5-5.1); Protein, Total 5.8 g/dL (6.4-8.2)
[2023-05-16] MEDS ORDERED: KCL 20 MEQ/100 mL IVPB 20 MEQ/100 ML BAG IV SCH (06:00)
[2023-05-16] MEDS: DEXMEDETOMIDINE HCL 1,000 MCG in NA CHLORIDE 0.9% 490 ML IV SCH ×2 (07:24→16:25)
--- NOTE | 2023-05-16 07:31 | P.PN ---
Date of Service: 05/16/23 Chief Complaint: Respiratory failure Subjective: Patient seen and examined at bedside. Remains intubated. SBT and possible extubation today. No acute events reported overnight. Continue with current antibiotics. Physical Examination Temp Pulse Resp BP Pulse Ox 99.5 F 82 14 165/91 H 100 05/16/23 07:00 05/16/23 07:00 05/16/23 07:00 05/16/23 07:00 05/16/23 07:00 General: Intubated, sedated HEENT: Atraumatic, Normocephalic. ET tube. Respiratory: Diminished bilaterally. On mechanical ventilation. Cardiovascular: Trace BLE edema. Gastrointestinal: Abdominal surgical incision sites with ARMIN drain x 3. 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 Foster on 05/05. - Blood cultures 05/05: No growth to date - Repeat blood culture 05/11: No growth 24 hours - Urine culture 05/06: No growth to date - ARMIN drains with serous / serosanguinous drainage. - Pus drainage from midline abdominal incision site by Dr. Foster at bedside 05/13 Acute Hypoxic Respiratory Failure - intubated and sedated - pulmonology following - sputum culture 05/11: Pseudomonoas aeruginosa Antibiotics - Vancomycin (started 05/06-) - Meropenem (started 05/06-) - Fluconazole (started 05/11-) due to high risk/concern for superimposed fungal infection Leukocytosis improving Afebrile Recommendations - Continue Meropenem, Vancomycin and Fluconazole for now. On day 11 of antibiotic therapy. - Abdominal surgical site wound care per surgery team - Monitor WBC and fever trends - Oral care while intubated - Pressure offloading measures. Turn patient q2h, wedge pillow, low air-loss mattress. Apply barrier cream to sacrum/buttocks Case discussed with Bam Kaye
--- NOTE | 2023-05-16 07:41 | RAD REPORT ---
EXAM DESCRIPTION: Ney Single View05/16/2023 5:43 am CLINICAL HISTORY: Respiratory failure COMPARISON: May 15, 2022 FINDINGS: Mild improvement in right and no significant change in mild left pulmonary opacities Heart is normal size Endotracheal tube and central venous line in good position IMPRESSION: Mild improvement in the right and no significant change in the mild left pulmonary opaci ties
[2023-05-16] MEDS: PANTOPRAZOLE 40 MG INJ IVP SCH ×2 (08:19→21:11)
[2023-05-16] MEDS: FUROSEMIDE 40 MG/4 ML VIAL IV SCH (08:19)
[2023-05-16] MEDS ORDERED: FUROSEMIDE 40 MG/4 ML VIAL ONE (08:30)
[2023-05-16] MEDS: ENOXAPARIN 40 MG/0.4 ML SQ SCH (08:31)
[2023-05-16] MEDS ORDERED: FENTANYL CITR 100 MCG/2 ML ONE (08:48)
--- NOTE | 2023-05-16 09:25 | P.PN ---
Date of Service: 05/16/23 Subjective: Much more awake/alert today, following simple commands Moving all extremities Blood pressure has been stable. NG tube output no longer coffee-ground Failed weaning trial yesterday ROS: 10 point ROS as noted above, otherwise negative Physical exam GEN: Awake, tracking with eyes, following simple commands HEENT: ET tube, NG tube CV: Regular rate and rhythm, bilateral upper and lower extremity edema improved. Pulm: Breath sounds diminished bilaterally. Mechanical ventilation. ABD: [address], J tube in place, abd soft, dressings CDI Integumentary: Ecchymosis right shoulder. 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 NG tube draining gastric fluid no sign of blood Protonix switched to twice daily IV Feeding via J tube at a very slow rate for a limited time per day recommended by surgery Dr. Foster. Given one unit PRBC 05/14 GI, General Surgery are following. Continue TPN at the current rate. Total 5 units PRBC transfused. Sepsis Leukocytosis improved Continue IV antibiotics/antifungals Infectious disease following Acute hypoxic respiratory failure/acute lung injury Continue mechanical ventilation, possible extubation today Sedation as needed. Pulmonolgy is following. continue Vanc/merrem Acetaminophen toxicity Patient completed acetylcysteine IV infusion for APAP toxicity. Monitor LFTs daily Acute kidney injury Serum creatinine improved. Nephrology is following. Continue TPN. Intermittent IV Lasix and albumin per nephrology Monitor renal function. Monitor and optimize electrolytes. Hypoglycemia Continue TPN Fingerstick glucose monitoring. Malnutrition/hypoalbuminemia TPN Albumin as needed Continue J-tube feeding per general surgery at a low rate-not to be increased currently Anasarca Improved. Intermittent Lasix and albumin as needed. Thrombocytopenia Rapid drop in platelet count. Platelet count improved. Patient is no longer thrombocytopenic. Peripheral blood smear is not informative. Continue to hold anticoagulant. Bipolar disorder/depression/anxiety Hold oral meds given n.p.o. status. Will need LTAC at DC VTE: SCD. Avoid anticoagulants due to multiple drop in hemoglobin. Code: Maxillofacial Prosthodontist Spent Managing Pts Care (In Minutes): 35 <Genaro Yepez - Last Filed: 05/16/23 09:22> Patient seen and examined on rounds this morning. Plan of care as noted above by MARQUETRY WORKER Lucho. In addition: Patient with high risk to pull NGT and likely need BIPAP after extubation Discussed with Dr. Foster - given risks and recent gastric perforation, recommends delaying extubation until Saturday to minimize risk of stuture dehiscence / need for emergent surgery agreed with increased tu be feeds to 20cc/hr from 10 patien did better with wean trial today, following commands and moving extremities - had to be restrained due to attempting to pull NGT <Bharath Gaffney - Last Filed: 05/16/23 21:31>
[2023-05-16] MEDS: FLUCONAZOLE 400 MG IVPB 400 MG/200 ML BAG IV SCH (10:11)
--- NOTE | 2023-05-16 10:17 | P.PN ---
Subjective Date of Service: 05/16/23 Chief Complaint: Respiratory failure Patient is improving doing much better is now on spontaneous breathing trial alert responsive cooperative Review of Systems is unable to be obtained Physical Examination - Vital Signs Temperature: 99.5 F Blood Pressure: 165/91 Pulse: 77 Respirations: 13 Pulse Ox (%): 99 - Physical Exam General: Alert, Cooperative Respiratory: Clear to auscultation bilaterally, Diminished Cardiovascular: Regular rate/rhythm, Normal S1 S2, Edema Assessment And Plan - Current Problems (Diagnosis) (1) Respiratory failure Current Visit: Yes Status: Acute Plan: Patient is improving plan to continue with spontaneous breathing trial hopefully extubate in 1 hour past x-ray is clear endotracheal tube satisfactory tolerating tube feeds is on TPN count is borderline elevated no new positive cultures hemoglobin stable at 7.3 oxygen requirement at 40% continue with IV Lasix Qualifiers: Chronicity: acute
[2023-05-16] MEDS: MIDAZOLAM HCL 2 MG/2 ML INJ IV PRN ×4 (11:40→23:52)
[2023-05-16] MEDS: AA 5%/D20W/ELECTROLYTES-TPN 2,000 ML IV SCH (16:25)
[2023-05-16] MEDS ORDERED: VITAL HP 1,000 ML BOT RTH SCH (16:26)
--- NOTE | 2023-05-16 16:50 | P.PN ---
Subjective Date of Service: 05/16/23 Chief Complaint: Respiratory failure Subjective: Other (remains bedridden) Physical Examination - Vital Signs Temperature: 98.2 F Blood Pressure: 156/79 Pulse: 70 Respirations: 15 Pulse Ox (%): 100 - Physical Exam General: Other (appears as her stated age) HEENT: Atraumatic, Normocephalic Neck: Supple, JVD not distended Respiratory: Other (symmetric chest expansion) Cardiovascular: No rubs, No murmurs Gastrointestinal: Soft and benign, No guarding Musculoskeletal: No clubbing Integumentary: No warmth Neurological: Normal tone Urinary: Other (no bladder distention) External genitalia: Deferred Rectal: Deferred Assessment And Plan - Plan 1. Acute kidney injury secondary to poor perfusion ATN, toxic ATN. Improved. Cont TPN & tube feeds at current rate. Monitor renal panel. Has polyuria, on diuretics. Has trace BLE edema. Will discuss w/ Pharmacy if we can switch IV carrier fluid to D5W & avoid NS, then dc diuretic at that point. 2. Hypokalemia, hypomagnesemia, hypophosphatemia. Replete prn. 3. Hypernatremia. Resolving. IV hydration/TPN/tube feeding as above. 4. Gastric pouch perforation, status post surgery. Per other services. 5. Acute respiratory failure. Per ICU team 6. Anemia. pRBC transf prn for Hgb < 7.0.
[2023-05-17] MEDS: Meropenem 1,000 MG in NA CHLORIDE 0.9% 100 ML IV SCH ×2 (00:01→09:56)
[2023-05-17] MEDS ORDERED: Meropenem 1000 MG/VIAL IV ONE ×3 (00:10→18:09)
[2023-05-17] MEDS ORDERED: NA CHLORIDE 0.9% 100 ML ONE ×2 (00:10→09:07)
[2023-05-17] MEDS: HYDROMORPHONE HCL 2 MG/ML inj IV PRN ×6 (01:05→22:43)
[2023-05-17] MEDS: DEXMEDETOMIDINE HCL 1,000 MCG in NA CHLORIDE 0.9% 490 ML IV SCH ×3 (01:06→19:23)
[2023-05-17] MEDS: MIDAZOLAM HCL 2 MG/2 ML INJ IV PRN ×6 (03:42→22:43)
[2023-05-17] MEDS: LORazepam 2 MG/ML VIAL IV PRN ×2 (04:31→20:51)
[2023-05-17 06:57] LABS: Hematocrit 21.1 % (36.0-45.0); MCV 101.1 fL (80-100); MPV 10.2 fL (7.6-11.3); Platelets 282 thou/uL (152-406); RBC Red Blood Cell Count 2.09 M/uL (3.86-4.86)
[2023-05-17 07:16] LABS: Albumin 1.6 g/dL (3.4-5.0); Magnesium 2.3 mg/dL (1.6-2.4); Phosphorus 2.5 mg/dL (2.5-4.9); Potassium 4.2 mEq/L (3.5-5.1); Protein, Total 5.9 g/dL (6.4-8.2)
--- NOTE | 2023-05-17 07:53 | P.PN ---
Date of Service: 05/17/23 Chief Complaint: Respiratory failure Subjective: Patient seen and examined at bedside. Remains intubated and sedated. No acute events reported overnight. Continue current plan of care. Physical Examination Temp Pulse Resp BP Pulse Ox 99 F 73 19 148/81 H 100 05/17/23 04:00 05/17/23 06:00 05/17/23 06:00 05/17/23 06:00 05/17/23 06:00 General: Intubated, sedated. HEENT: Atraumatic, Normocephalic. ET tube. Respiratory: Diminished bilaterally. Coarse breath sounds. On mechanical ventilation. Cardiovascular: Trace BLE edema. Gastrointestinal: Abdominal surgical incision sites with ARMIN drain x 3 Integumentary: Abdominal surgical incision sites dressing clean dry and intact Urinary: Acrl catheter Laboratory Data - Reviewed Microbiology Data - Reviewed Imagings Data: - Reviewed Medications List: Reviewed Assessment and plan Problem List Gastric pouch perforation/rupture s/p repair on 05/05 Acute blood loss anemia secondary to gastric pouch perforation Acute Hypoxic Respiratory Failure Acute Kidney Injury Acetaminophen Toxicity Bipolar disorder Depression Anxiety Gastric Pouch Perforation/Rupture/Bleeding - History of laura-en-Y bypass - Underwent emergent exploratory laparotomy with findings of acute abdominal pneumoperitoneum, hemoperitoneum, gastric pouch perforation/rupture/bleeding --> small bowel laura limb repair, repair of gastric pouch rupture with bleeding control, extensive lysys of adhesions, jejunostomy, evacuation of hemoperitoneum performed by Dr. Foster on 05/05. - Blood cultures 05/05: No growth to date - Repeat blood culture 05/11: No growth 24 hours - Urine culture 05/06: No growth to date - Pus drainage from midline abdominal incision site by Dr. 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 On antibiotic day 12 . - Abdominal surgical site wound care per surgery team - Monitor WBC and fever trends - Oral care while intubated - Pressure offloading measures. Turn patient q2h, wedge pillow, low air-loss mattress. Apply barrier cream to sacrum/buttocks Case discussed with Bam Kaye
[2023-05-17] MEDS: PANTOPRAZOLE 40 MG INJ IVP SCH ×2 (09:00→20:51)
[2023-05-17] MEDS: FUROSEMIDE 40 MG/4 ML VIAL IV SCH (09:00)
[2023-05-17] MEDS ORDERED: FUROSEMIDE 40 MG/4 ML VIAL ONE (09:05)
--- NOTE | 2023-05-17 09:28 | P.PN ---
Date of Service: 05/17/23 Subjective: Much more awake/alert today, following simple commands Moving all extremities Blood pressure has been stable. NG tube output no longer coffee-ground ROS: 10 point ROS as noted above, otherwise negative Physical exam GEN: Awake, tracking with eyes, following simple commands HEENT: ET tube, NG tube CV: Regular rate and rhythm, bilateral upper and lower extremity edema improved. Pulm: Breath sounds diminished bilaterally. Mechanical ventilation. ABD: [address], J tube in place, abd soft, dressings CDI Integumentary: Ecchymosis right shoulder. 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 NG tube draining gastric fluid no sign of blood Protonix switched to twice daily IV Feeding via J tube at 10ml/hr recommended by surgery Dr. Foster., attempted 20ml/hr overnight but had leakage from J tube, back down to 10ml/hr Giving another unit PRBC today for hbg 7.1-downtrending GI, General Surgery are following. Continue TPN at the current rate. Total 6 units PRBC transfused. Sepsis Leukocytosis improved Continue IV antibiotics/antifungals Infectious disease following Acute hypoxic respiratory failure/acute lung injury Continue mechanical ventilation, plan on possible extubation saturday Sedation as needed. Pulmonolgy is following. continue Vanc/merrem Acetaminophen toxicity Patient completed acetylcysteine IV infusion for APAP toxicity. Monitor LFTs daily Acute kidney injury Serum creatinine improved. Nephrology is following. Continue TPN. Intermittent IV Lasix and albumin per nephrology Monitor renal function. Monitor and optimize electrolytes. Hypoglycemia Continue TPN Fingerstick glucose monitoring. Malnutrition/hypoalbuminemia TPN Albumin as needed Continue J-tube feeding per general surgery at a low rate-not to be increased currently Anasarca Improved. Intermittent Lasix and albumin as needed. Thrombocytopenia Rapid drop in platelet count. Platelet count improved. Patient is no longer thrombocytopenic. Peripheral blood smear is not informative. Continue to hold anticoagulant. Bipolar disorder/depression/anxiety Hold oral meds given n.p.o. status. Will need LTAC at DC VTE: SCD. Avoid anticoagulants due to multiple drop in hemoglobin. Code: Mechanical Manufacturing Technician Spent Managing Pts Care (In Minutes): 35 <Genaro Yepez - Last Filed: 05/17/23 09:25> Patient seen and examined on rounds this morning. Plan of care discussed with SENIOR JAVA PROGRAMMER ANALYST Lucho. Agree with plan as noted above with the following additions/corrections: Some tube feeds leaking around J-tube, decreased back to 10 cc/hour Continues on sedation Hemoglobin down to 7.1, continue to trend down, no obvious bleeding, will transfuse 1 unit PRBC Continue TPN Bilateral lower extremity edema Discussed with nephrology, will transition carrier fluids to D5, avoiding salt containing fluids <Bharath Gaffney - Last Filed: 05/17/23 16:39>
[2023-05-17] MEDS: FLUCONAZOLE 400 MG IVPB 400 MG/200 ML BAG IV SCH (09:50)
[2023-05-17] MEDS: ENOXAPARIN 40 MG/0.4 ML SQ SCH (09:51)
[2023-05-17] MEDS ORDERED: MIDAZOLAM HCL 2 MG/2 ML INJ ONE ×4 (10:22→22:55)
--- NOTE | 2023-05-17 10:33 | P.PN ---
Subjective Date of Service: 05/17/23 Chief Complaint: Respiratory failure Patient is improving alert responsive cooperating she is on SIMV Review of Systems is unable to be obtained Physical Examination - Vital Signs Temperature: 98.2 F Blood Pressure: 174/52 Pulse: 99 Respirations: 15 Pulse Ox (%): 100 - Physical Exam General: Alert, Cooperative Respiratory: Clear to auscultation bilaterally Cardiovascular: No edema, Regular rate/rhythm, Normal S1 S2 Assessment And Plan - Current Problems (Diagnosis) (1) Respiratory failure Current Visit: Yes Status: Acute Plan: Respiratory failure patient is doing much better discussed with general surgery we will plan to do a Gastrografin on Saturday possible wean and extubate on Saturday no hemoglobin recommend another unit of blood transfusion renal function improving medication list reviewed continue with present therapy bedside physical therapy tolerating tube feeds and TPN Qualifiers: Chronicity: acute
--- NOTE | 2023-05-17 10:54 | PN ---
Date of Progress Note: 05/17/2023 Reason For Service: Status post a gastric perforation specifically David-en-Y gastric bypass proximal pouch with defunctionalization of the David-en-Y gastric bypass close the efferent loops. This is du e to a large gastric perforation with active gastrointestinal hemorrhage. The patient is doing celia r from the medical standpoint. She has been intubated and sedated for us to be able to ge t control over her medical issues and surgical issues. She is on and off combative when we are tryin g to get her off the vent and it is important for us and to her to understand the importance of the d rain, the NG tube and the jejunostomy tube placed in that area. We are trying to wean her up slowly and we would prefer the Gastrografin study to be done in the stomach area before removal of an NG tub e. If the Gastrografin is not available and the NG tubes have to be there until then, which should b e there until then, then we informed the medical team about the dose to see how they accommodate ever ything together. Objective: Chest: Clear. Abdomen: Soft and depressible. Intact incisions. Packing was placed in the 2 areas. There is no c ellulitis present. Extremities: Good capillary refill. Laboratory Data: Blood Work, WBC count finally came down to 7.2, hemoglobin still 7.1, and platelets of 282. Potassium is 4.2, creatinine is 0.86. This patient at 1 point was in renal insufficiency t o the point that hemodialysis catheter was considered, but I am glad to say that even that is improvi ng on her. Plan: Basically plan is for extubation. We would like to obtain a Gastrografin study before the NG tube get pull out. Unfortunately, as per family, it has been indicated us all the time that she will pull the catheters and so we trying to bring that into consideration. It should not be the only nikolai son for sedation, but at the same time an emergency may develop. So we have to see the pros and cons of that. We talked to person right now and she is starting to react and hopefully we get some understanding that she does not attempt to remove the catheter that may com promise her life. HM/MODL Voice ID: [id number] Report ID: [id number]
--- NOTE | 2023-05-17 14:45 | P.PN ---
Subjective Date of Service: 05/17/23 Chief Complaint: Respiratory failure Subjective: No new changes Physical Examination - Vital Signs Temperature: 98.2 F Blood Pressure: 162/73 Pulse: 82 Respirations: 19 Pulse Ox (%): 98 - Physical Exam General: Other (appears her stated age) HEENT: Atraumatic, Normocephalic Neck: Supple Respiratory: Other (symmetric chest expansion) Cardiovascular: No rubs, No murmurs Gastrointestinal: Soft and benign, No guarding Musculoskeletal: No clubbing Integumentary: No warmth Neurological: Normal tone Urinary: Other (no bladder distention) External genitalia: Deferred Rectal: Deferred Assessment And Plan - Plan 1. Acute kidney injury secondary to poor perfusion ATN, toxic ATN. Improved. Cont TPN & tube feeds at current rate. Monitor renal panel. 2. Hypokalemia, hypomagnesemia, hypophosphatemia. Replete prn. 3. Hypernatremia. Serum Na 145. IV hydration/TPN/tube feeding as above. 4. Gastric pouch perforation, status post surgery. Per other services. 5. Acute respiratory failure. Per ICU team 6. Anemia. pRBC transf prn for Hgb < 7.0.
[2023-05-17] MEDS ORDERED: NA CHLORIDE 0.9% 250 ML ONE (15:23)
[2023-05-17] MEDS: D5W IV SCH (17:57)
[2023-05-17] MEDS: MEROPENEM IV SCH (17:57)
[2023-05-17] MEDS: AA 5%/D20W/ELECTROLYTES-TPN 2,000 ML, Lipids 20% 250 ML with MULTIVITAMINS INJ 10 ML IV SCH ×3 (17:58)
[2023-05-17] MEDS ORDERED: DEXTROSE 5% IVPB SCH (18:00)
[2023-05-17] MEDS ORDERED: VANCOMYCIN IVPB SCH (18:00)
[2023-05-17] MEDS ORDERED: WATER IVPB SCH (18:00)
[2023-05-17] MEDS ORDERED: D5W 100 ML IV ONE (18:09)
[2023-05-17] MEDS ORDERED: HYDROMORPHONE HCL 2 MG/ML inj ONE ×2 (18:13→22:55)
[2023-05-18] MEDS: MEROPENEM IV SCH ×3 (00:58→17:01)
[2023-05-18] MEDS: D5W IV SCH ×3 (00:58→17:01)
[2023-05-18] MEDS ORDERED: D5W 100 ML IV ONE ×3 (00:59→17:11)
[2023-05-18] MEDS: LORazepam 2 MG/ML VIAL IV PRN ×2 (00:59→04:57)
[2023-05-18] MEDS: MIDAZOLAM HCL 2 MG/2 ML INJ IV PRN ×3 (00:59→16:27)
[2023-05-18] MEDS ORDERED: Meropenem 1000 MG/VIAL IV ONE ×3 (01:01→17:11)
[2023-05-18] MEDS: HYDROMORPHONE HCL 2 MG/ML inj IV PRN ×3 (02:30→21:40)
[2023-05-18] MEDS ORDERED: HYDROMORPHONE HCL 2 MG/ML inj ONE ×2 (02:38→08:27)
[2023-05-18] MEDS: DEXMEDETOMIDINE HCL 1,000 MCG in NA CHLORIDE 0.9% 490 ML IV SCH ×2 (03:50→13:14)
[2023-05-18 04:57] LABS: Hematocrit 27.4 % (36.0-45.0); MPV 10.2 fL (7.6-11.3); Platelets 289 thou/uL (152-406); RBC Red Blood Cell Count 2.79 M/uL (3.86-4.86)
[2023-05-18] MEDS ORDERED: MIDAZOLAM HCL 2 MG/2 ML INJ ONE ×2 (05:09→08:27)
[2023-05-18] MEDS ORDERED: LORazepam 2 MG/ML VIAL ONE (05:10)
[2023-05-18 05:19] LABS: Albumin 1.9 g/dL (3.4-5.0); Bilirubin Total 1.3 mg/dL (0.2-1.0); Magnesium 2.2 mg/dL (1.6-2.4); Phosphorus 2.4 mg/dL (2.5-4.9); Protein, Total 6.7 g/dL (6.4-8.2)
[2023-05-18] MEDS ORDERED: VANCOMYCIN 1 GM in NA CHLORIDE 0.9% 250 ML IVPB SCH (07:00)
[2023-05-18] MEDS ORDERED: VANCOMYCIN 2.25 GM in NA CHLORIDE 0.9% 500 ML IVPB ONE ×4 (07:00)
--- NOTE | 2023-05-18 08:00 | P.PN ---
Date of Service: 05/18/23 Subjective: Much more awake/alert today, following simple commands Moving all extremities Blood pressure has been stable. NG tube output no longer coffee-ground Fever overnight 05/17 TMAX 103 ROS: 10 point ROS as noted above, otherwise negative Physical exam GEN: Awake, tracking with eyes, following simple commands HEENT: ET tube, NG tube CV: Regular rate and rhythm, bilateral upper and lower extremity edema improved. Pulm: Breath sounds diminished bilaterally. Mechanical ventilation. ABD: [address], J tube in place, abd soft, dressings CDI Integumentary: Ecchymosis right shoulder. 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 NG tube draining gastric fluid no sign of blood Protonix switched to twice daily IV Feeding via J tube at 10ml/hr recommended by surgery Dr. Foster., attempted 20ml/hr overnight but had leakage from J tube, back down to 10ml/hr GI, General Surgery are following. Continue TPN at the current rate. Total 6 units PRBC transfused. Sepsis new fevers 05/17 Continue as above Leukocytosis improved Continue IV antibiotics/antifungals Infectious disease following Acute hypoxic respiratory failure/acute lung injury Continue mechanical ventilation, plan on possible extubation saturday Sedation as needed. Pulmonolgy is following. continue Vanc/merrem Acetaminophen toxicity Patient completed acetylcysteine IV infusion for APAP toxicity. Monitor LFTs daily Acute kidney injury Serum creatinine improved. Nephrology is following. Continue TPN. Intermittent IV Lasix and albumin per nephrology Monitor renal function. Monitor and optimize electrolytes. Hypoglycemia Continue TPN Fingerstick glucose monitoring. Malnutrition/hypoalbuminemia TPN Albumin as needed Continue J-tube feeding per general surgery at a low rate-not to be increased currently Anasarca Improved. Intermittent Lasix and albumin as needed. Thrombocytopenia Rapid drop in platelet count. Platelet count improved. Patient is no longer thrombocytopenic. Peripheral blood smear is not informative. Continue to hold anticoagulant. On SCDs Bipolar disorder/depression/anxiety Hold oral meds given n.p.o. status. Will need LTAC at DC VTE: SCD. Avoid anticoagulants due to multiple drop in hemoglobin. Code: Sap Abap Developer Spent Managing Pts Care (In Minutes): 35 <Genaro Yepez - Last Filed: 05/18/23 07:57> Patient seen and examined on rounds this morning. Plan of care discussed with TOBACCO FLAVORER Lucho. Agree with plan as noted above with the following additions/corrections: Febrile overnight and this morning Tylenol as needed Still no BM in several days Unclear source of fever No obvious new wounds, CXR with slight pulmonary edema, but no focal consolidation Check CT chest/abdomen/pelvis to rule out abscess, eval lungs, possibly some atelectasis component Add vancomycin back to regimen <Bharath Gaffney - Last Filed: 05/18/23 16:10>
[2023-05-18] MEDS: ACETAMINOPHEN 650MG/RECT SUPP PR PRN (08:05)
[2023-05-18] MEDS: PANTOPRAZOLE 40 MG INJ IVP SCH ×2 (08:06→20:29)
[2023-05-18] MEDS: FUROSEMIDE 40 MG/4 ML VIAL IV SCH (08:06)
[2023-05-18] MEDS: ENOXAPARIN 40 MG/0.4 ML SQ SCH (08:06)
--- NOTE | 2023-05-18 08:07 | RAD REPORT ---
EXAM DESCRIPTION: RAD - Chest Single View - 05/18/2023 5:00 am CLINICAL HISTORY: eval tubes/opacities Chest pain. COMPARISON: Chest Single View dated 05/16/2023; Chest Single View dated 05/15/2023; Chest Single Vie w dated 05/14/2023; Chest Single View dated 05/13/2023 FINDINGS: Portable technique limits examination quality. Tip of the endotracheal tube is at the level of the mid aortic arch. Enteric tube descends into the s tomach. Mild asymmetric pulmonary opacities are present, greater on the left. Left-sided venous kacy ter its tip in the SVC.
[2023-05-18] MEDS ORDERED: FUROSEMIDE 40 MG/4 ML VIAL ONE (08:17)
--- NOTE | 2023-05-18 08:52 | RAD REPORT ---
EXAM DESCRIPTION: CT - Chest Abdomen Pelvis W Cont - 05/18/2023 8:28 am CLINICAL HISTORY: Chest and abdomen pain. new fever, r/o abd abscess, pneumonia COMPARISON: Chest Abd Pelvis Wo Con dated 05/05/2023; Chest Single View dated 05/16/2023; Chest Sing le View dated 05/15/2023; Head Brain Wo Cont dated 05/15/2023 TECHNIQUE: Approximately 100 mL nonionic IV contrast was administered to the patient. All CT scans are performed using dose optimization technique as appropriate and may include automated exposure control or mA/KV adjustment according to patient size. FINDINGS: Tip of the endotracheal tube is above the meg.Enteric tube descends into the stomach. M oderate bibasilar lung consolidations posteriorly may represent atelectasis or infiltrate.No pleural or pericardial effusion.No intrathoracic adenopathy. The liver appears unremarkable. A small low-density lesion is seen spleen posteriorly measuring 16 mm , nonspecific. A small amount of perisplenic fluid is present. Both adrenal glands pancreas kidneys a re within normal limits. Three surgical drains are noted. Midline tory are present. No bowel obstruction, free air, free fluid or abscess. Moderate left inguinal hernia is present small bowel loops. No bowel obstruction ileus. No pathologic lymphadenopathy in the abdomen or pelvis. Right total hip arthroplasty. IMPRESSION: Bibasilar lung consolidations are present posteriorly which may represent infiltrate or atelectasis. There is no evidence of intra- abdominal or intrapelvic abscess collection. Small moderate left inguinal hernia containing nonobstructed small bowel.
[2023-05-18] MEDS: FLUCONAZOLE 400 MG IVPB 400 MG/200 ML BAG IV SCH (09:55)
--- NOTE | 2023-05-18 10:17 | P.PN ---
Subjective Date of Service: 05/18/23 Chief Complaint: Fever patient on a ventilator Patient is doing well she is alert responsive cooperative however patient has developed a fever today undergoing bedside physical therapy Review of Systems is unable to be obtained Physical Examination - Vital Signs Temperature: 104.5 F Blood Pressure: 162/73 Pulse: 110 Respirations: 19 Pulse Ox (%): 98 - Physical Exam General: Alert, Cooperative Respiratory: Clear to auscultation bilaterally Cardiovascular: No edema, Regular rate/rhythm, Normal S1 S2 Gastrointestinal: Hypoactive, Soft and benign Assessment And Plan - Current Problems (Diagnosis) (1) Respiratory failure Current Visit: Yes Status: Acute Plan: Patient is doing well waiting Gastrografin study tomorrow before extubation Qualifiers: Chronicity: acute (2) Fever Current Visit: Yes Status: Acute Plan: Patient has developed a fever today CT scan of the abdomen no acute changes lower lobe atelectasis or infiltrate Pseudomonas isolated patient has been on meropenem and Diflucan vancomycin has been reinstituted blood cultures reordered urinalysis also ordered White count is declining the possibility of an MRSA infection or superimposed Anastasia glabrata infection in any case will need to be changed over to micafungin if needed the fever persists or if urinalysis shows some fungal elements hemodyna mically stable sat is 98% on 40% FiO2 Labs chest x-ray CT scans all reviewed
--- NOTE | 2023-05-18 15:39 | P.PN ---
Subjective Date of Service: 05/18/23 Chief Complaint: Fever patient on a ventilator Subjective: Other (remains bedridden) Physical Examination - Vital Signs Temperature: 99.2 F Blood Pressure: 133/77 Pulse: 59 Respirations: 19 Pulse Ox (%): 100 - Physical Exam General: Other (chronically ill-appearing) HEENT: Atraumatic, Normocephalic Neck: Supple Respiratory: Other (symmetric chest expansion) Cardiovascular: No rubs, No murmurs Gastrointestinal: Soft and benign, No guarding Musculoskeletal: No clubbing Integumentary: No warmth Neurological: Normal tone Urinary: Other (no bladder distention) External genitalia: Deferred Rectal: Deferred Assessment And Plan - Plan 1. Acute kidney injury secondary to poor perfusion ATN, toxic ATN. Improved. On TPN. Off tube feed. Off Precedex gtt. Dc lasix IV. Start LR gtt at 75 cc/hr. Monitor renal panel. 2. Hypokalemia, hypomagnesemia, hypophosphatemia. Replete prn. 3. Hypernatremia. Serum Na 145. IV hydration & TPN as above. 4. HypoPO4. Phos repletion prn. 5. Gastric pouch perforation, status post surgery. Per other services. 6. Acute respiratory failure. Per ICU team 7. Anemia. pRBC transf prn for Hgb < 7.0.
[2023-05-18] MEDS: AA 5%/D20W/ELECTROLYTES-TPN 2,000 ML IV SCH (17:01)
[2023-05-18] MEDS: Ringers Lactate 1,000 ML IV SCH (17:28)
[2023-05-18 17:46] LABS: Specific Gravity > 1.030 (1.005-1.030); Urine Bacteria <20 /HPF (<20); Urine Bilirubin NEGATIVE (Negative); Urine Blood Negative (Negative); Urine Clarity Clear (Clear); Urine Color Yellow (Yellow); Urine Glucose NEGATIVE (Negative); Urine Mucus Slight /HPF (None Seen); Urine Protein 1+ (Negative); Urine RBC <5 /HPF (None Seen); Urine Urobilinogen 1+ (Normal)
--- NOTE | 2023-05-18 21:01 | PN ---
Date of Progress Note: 05/18/2023 Reason For Service: Gastric perforation, GI bleed, hypovolemic shock. Subjective: The patient is doing better. Today, a CAT scan was done due to fevers, looking for reas ons for any intraabdominal conditions. She is still on and off during fevers, in this case 102, 103. We are in the process of planning and starting to wean her off extubation. We see bilateral consol idations of the lungs. We are going to let the primary doctor do with that to consider when it is sa fe for extubation. Objective: From our surgical standpoint, Chest: Clear. Abdomen: Soft and depressible. Skin: Incisions are intact. No cellulitis present. Extremities: Good capillary refill. Blood Work: Reviewed. Plan: Once again, we are going to do a study once radiologists are in town. It is a weekend, it is a holiday. If by Saturday, we can do some Gastrografin and verify the viability of a proximal pouch, t hen we will remove the NG tube. She is combative. The family told us about that too. I noted the j ejunostomy tube is out a little bit. We once again instructed staff how to protect that from happeni ng. But at one point, she is going to be ready lungs evaluation also is done and the Gastrografin, w e are going to be ready for extubation. TABATHA/MODL Voice ID: [id number] Report ID: [id number]
[2023-05-19] MEDS: MEROPENEM IV SCH ×3 (00:52→16:52)
[2023-05-19] MEDS: D5W IV SCH ×3 (00:52→16:52)
[2023-05-19] MEDS ORDERED: VANCOMYCIN 1.5 GM in NA CHLORIDE 0.9% 500 ML IVPB SCH (01:00)
[2023-05-19] MEDS ORDERED: D5W 0 ML IV ONE (01:01)
[2023-05-19] MEDS ORDERED: Meropenem 1000 MG/VIAL IV ONE ×3 (01:03→17:03)
[2023-05-19] MEDS: MIDAZOLAM HCL 2 MG/2 ML INJ IV PRN ×5 (01:15→18:00)
[2023-05-19] MEDS: VANCOMYCIN 1.5 GM in Dextrose 5%-Water 500 ML IVPB SCH ×2 (01:23→19:32)
[2023-05-19] MEDS: LORazepam 2 MG/ML VIAL IV PRN ×4 (02:40→21:16)
[2023-05-19] MEDS: HYDROMORPHONE HCL 2 MG/ML inj IV PRN ×4 (03:30→21:16)
[2023-05-19 05:19] LABS: Hematocrit 24.9 % (36.0-45.0); MCV 97.9 fL (80-100); Platelets 235 thou/uL (152-406); RBC Red Blood Cell Count 2.55 M/uL (3.86-4.86)
[2023-05-19] MEDS: Ringers Lactate 1,000 ML IV SCH (05:46)
[2023-05-19 05:51] LABS: Albumin 1.6 g/dL (3.4-5.0); Magnesium 2.3 mg/dL (1.6-2.4); Phosphorus 3.7 mg/dL (2.5-4.9); Potassium 2.8 mEq/L (3.5-5.1); Protein, Total 5.9 g/dL (6.4-8.2)
[2023-05-19] MEDS: KCL 20 MEQ/100 mL IVPB 20 MEQ/100 ML BAG IV SCH ×2 (06:28→08:16)
--- NOTE | 2023-05-19 08:11 | P.PN ---
Subjective Date of Service: 05/19/23 Chief Complaint: Respiratory failure Patient has no fever for the past 24 hours very alert responsive cooperative hemodynamically stable Review of Systems is unable to be obtained Physical Examination - Vital Signs Temperature: 98 F Blood Pressure: 166/87 Pulse: 90 Respirations: 90 Pulse Ox (%): 100 - Physical Exam General: Alert, Cooperative Respiratory: Clear to auscultation bilaterally Cardiovascular: No edema, Regular rate/rhythm, Normal S1 S2 Assessment And Plan - Current Problems (Diagnosis) (1) Respiratory failure Current Visit: Yes Status: Acute Plan: Patient is doing well oxygenation satisfactory plan to wean off and extubate tomorrow after Gastrografin study. No obvious source of infection on CT of the abdomen chest and pelvis otherwise vital signs stable Qualifiers: Chronicity: acute (2) Fever Current Visit: Yes Status: Acute Plan: So far afebrile continue with vancomycin no evidence of urinary tract infection Qualifiers: Encounter type: subsequent encounter
[2023-05-19] MEDS: PANTOPRAZOLE 40 MG INJ IVP SCH ×2 (08:15→20:12)
[2023-05-19] MEDS: ENOXAPARIN 40 MG/0.4 ML SQ SCH (08:17)
[2023-05-19] MEDS ORDERED: PANTOPRAZOLE 40 MG INJ ONE (08:22)
[2023-05-19] MEDS ORDERED: KCL 20 MEQ/100 mL IVPB 100 ML IV ONE (08:22)
[2023-05-19] MEDS ORDERED: ENOXAPARIN 40 MG/0.4 ML SQ ONE (08:22)
[2023-05-19] MEDS ORDERED: MIDAZOLAM HCL 2 MG/2 ML INJ ONE ×3 (08:23→18:11)
[2023-05-19] MEDS ORDERED: D5W 100 ML IV ONE ×2 (08:23→17:03)
[2023-05-19] MEDS ORDERED: HYDROMORPHONE HCL 2 MG/ML inj ONE ×2 (08:24→12:51)
[2023-05-19] MEDS: FLUCONAZOLE 400 MG IVPB 400 MG/200 ML BAG IV SCH (08:54)
--- NOTE | 2023-05-19 09:51 | P.PN ---
Date of Service: 05/19/23 Subjective: Much more awake/alert today, following simple commands Moving all extremities Blood pressure has been stable. NG tube output no longer coffee-ground no further fevers off precedex since 05/18 ROS: 10 point ROS as noted above, otherwise negative Physical exam GEN: Awake, tracking with eyes, following simple commands HEENT: ET tube, NG tube CV: Regular rate and rhythm, bilateral upper and lower extremity edema improved. Pulm: Breath sounds diminished bilaterally. Mechanical ventilation. ABD: [address], J tube in place, abd soft, dressings CDI Integumentary: Ecchymosis right shoulder. 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 NG tube draining gastric fluid no sign of blood Protonix switched to twice daily IV Feeding via J tube at 10ml/hr recommended by surgery Dr. Foster- seems to have leaking from J tube site GI, General Surgery are following. Continue TPN at the current rate. Total 6 units PRBC transfused. fever No clear source of infection new fevers 05/17 Blood cultures, CT obtained CT 05/18 with no obvious infectious findings-atelectasis vs infiltrate Possible drug fever-Precedex held as there was also bradycardia No fevers 05/19 Leukocytosis improved Continue empiric IV antibiotics/antifungals Infectious disease following Acute hypoxic respiratory failure/acute lung injury Continue mechanical ventilation, plan on possible extubation saturday Sedation as needed. Pulmonolgy is following. continue Vanc/merrem Acetaminophen toxicity Patient completed acetylcysteine IV infusion for APAP toxicity. Monitor LFTs daily Acute kidney injury secondary to acute blood loss anemia, hypotension/prerenal state Serum creatinine improved. Nephrology is following. Continue TPN. Intermittent IV Lasix and albumin per nephrology Monitor renal function. Monitor and optimize electrolytes. Hypoglycemia Continue TPN Fingerstick glucose monitoring. Malnutrition/hypoalbuminemia TPN Albumin as needed Continue J-tube feeding per general surgery at a low rate-not to be increased currently Anasarca Improved. Intermittent Lasix and albumin as needed. Thrombocytopenia Platelet count improved. Patient is no longer thrombocytopenic. Peripheral blood smear is not informative. Continue to hold anticoagulant. On SCDs Bipolar disorder/depression/anxiety Hold oral meds given n.p.o. status. Will need LTAC at DC VTE: SCD. Avoid anticoagulants due to multiple drop in hemoglobin. 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 Plan of care discussed with MANAGER GAMING Lucho. Agree with plan as noted above with the following additions/corrections: Precedex held yesterday Patient much more awake and alert, nodding yes/no to questions appropriately Febrile throughout the day yesterday, so far afebrile since overnight Continue empiric antibiotics Nursing reports patient's tube feeds were restarted per surgery instructions, noticed tube feeds coming out around the tube so held the tube feeds and informed general surgery Continues on the ventilator <Bharath Gaffney - Last Filed: 05/19/23 15:19>
--- NOTE | 2023-05-19 14:34 | PN ---
Date of Progress Note: 05/19/2023 Subjective: Status post gastric perforation rupture with dysfunctionalization of a David-en-Y. David nt is doing well, slowly improving. We are working on weaning from the ventilator. She has bilatera l consolidations of the lungs. The primary doctors are working on that. From the surgical standpoin t, we will ask for the radiologist tomorrow to do a Gastrografin study of the proximal part of the NG tube. It is going into the whatever is left of the proximal pouch. There is very limited amount of volume in that area so we have to specify the radiologist, the importance of not putting pressure in that pouch and rupture it. That is our work for tomorrow. If that is the case and there is no prob zo there, then we will have to remove the NG tube. If there is still a problem with that regions, t hen she is going to have to be transferred to a higher level of care once again like we attempted bef ore for a reconstruction. Objective: Abdomen: Soft and depressible. Incisions are intact. No cellulitis present. Extremities: Good capillary refill. Laboratory Data: Blood work shows WBC count of 7.6 with hemoglobin of 8.3. Plan: ARMIN drain NG tube. No active bleeding. HM/MODL Voice ID: [id number] Report ID: [id number]
[2023-05-19] MEDS ORDERED: ACETAMINOPHEN 650MG/RECT SUPP PR ONE (15:11)
[2023-05-19] MEDS: ACETAMINOPHEN 650MG/RECT SUPP PR PRN (15:16)
[2023-05-19] MEDS ORDERED: LORazepam 2 MG/ML VIAL ONE ×2 (15:27→18:12)
--- NOTE | 2023-05-19 15:37 | P.PN ---
Subjective Date of Service: 05/19/23 Chief Complaint: Fever patient on a ventilator Subjective: Other (bedridden) Physical Examination - Vital Signs Temperature: 100.8 F Blood Pressure: 155/82 Pulse: 94 Respirations: 21 Pulse Ox (%): 96 - Physical Exam General: Other (appears acutely ill) HEENT: Atraumatic, Normocephalic Neck: Supple Respiratory: Other (symmetric chest expansion) Cardiovascular: No rubs, No murmurs Gastrointestinal: Soft and benign Musculoskeletal: No clubbing Integumentary: No warmth Neurological: Normal tone Urinary: Other (no bladder distention) External genitalia: Deferred Rectal: Deferred Assessment And Plan - Plan 1. Acute kidney injury secondary to poor perfusion ATN, toxic ATN. SCr improved to 0.8. On TPN. Off tube feed. Resumed Precedex gtt. Dc LR gtt. Monitor renal panel. 2. Hypokalemia, hypomagnesemia, hypophosphatemia. Replete prn. 3. Hypernatremia. Serum Na 145. IV hydration & TPN as above. 4. HypoPO4. Phos repletion prn. 5. Gastric pouch perforation, status post surgery. Per other services. 6. Acute respiratory failure. Per ICU team 7. Anemia. pRBC transf prn for Hgb < 7.0.
[2023-05-19] MEDS: AA 5%/D20W/ELECTROLYTES-TPN 2,000 ML IV SCH (16:51)
[2023-05-20] MEDS: MEROPENEM IV SCH ×3 (00:19→17:00)
[2023-05-20] MEDS: D5W IV SCH ×3 (00:19→17:00)
[2023-05-20] MEDS ORDERED: Meropenem 1000 MG/VIAL IV ONE (00:31)
[2023-05-20] MEDS ORDERED: NA CHLORIDE 0.9% 0 ML ONE (00:32)
[2023-05-20] MEDS: LORazepam 2 MG/ML VIAL IV PRN ×2 (04:24→21:13)
[2023-05-20 05:23] LABS: Hematocrit 22.9 % (36.0-45.0); MCV 97.5 fL (80-100); MPV 10.2 fL (7.6-11.3); Platelets 211 thou/uL (152-406); RBC Red Blood Cell Count 2.35 M/uL (3.86-4.86)
[2023-05-20 05:41] LABS: Albumin 1.6 g/dL (3.4-5.0); Bilirubin Total 0.8 mg/dL (0.2-1.0); Magnesium 2.1 mg/dL (1.6-2.4); Phosphorus 2.2 mg/dL (2.5-4.9); Potassium 3.8 mEq/L (3.5-5.1); Protein, Total 5.6 g/dL (6.4-8.2)
[2023-05-20] MEDS ORDERED: POTASSIUM PHOS 20 MEQ in NA CHLORIDE 0.9% 250 ML IV ONE (06:04)
--- NOTE | 2023-05-20 07:19 | P.PN ---
Date of Service: 05/20/23 Subjective: awake/alert; remains on vent and precedex drip febrile overnight 100.8 J tube not functioning properly - leaking from J tube site noted overnight follow simple commands, moves extremities ROS: 10 point ROS as noted above, otherwise negative Physical exam GEN: Awake, tracking with eyes, following simple commands HEENT: ET tube, NG tube CV: Regular rate and rhythm, bilateral upper and lower extremity edema improved. Pulm: Breath sounds diminished bilaterally. on mechanical ventilation. ABD: [address], J tube in place, abd soft, dressings CDI Integumentary: Ecchymosis right shoulder. 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 NG tube draining gastric fluid no sign of blood discussed with Dr. Foster 05/20, once extubated, to remove NGT as well, and patient should not have NGT placed ever again Protonix BID Feeding via J tube at 10ml/hr recommended by surgery Dr. Foster- seems to have leaking from J tube site GI, General Surgery are following. Continue TPN at the current rate. Total 6 units PRBC transfused. continue with precedex drip, Continues on the ventilator Fever No clear source of infection new fevers 05/17 Blood cultures, CT obtained CT 05/18 with no obvious infectious findings-atelectasis vs infiltrate Possible drug fever-Precedex held as there was also bradycardia 100.8 fever 05/20 Leukocytosis improved Continue empiric IV antibiotics/antifungals Infectious disease following Acute hypoxic respiratory failure/acute lung injury Continue mechanical ventilation, plan on possible extubation pending afebrile > 24 hours Sedation as needed. Pulmonolgy is following. continue Vanc/merrem Acetaminophen toxicity Patient completed acetylcysteine IV infusion for APAP toxicity. Monitor LFTs daily Acute kidney injury secondary to acute blood loss anemia, hypotension/prerenal state Serum creatinine improved. Nephrology is following. Continue TPN. Intermittent IV Lasix and albumin per nephrology Monitor renal function. Monitor and optimize electrolytes. Hypoglycemia Continue TPN Fingerstick glucose monitoring. Malnutrition/hypoalbuminemia TPN Albumin as needed Anasarca Improved. Intermittent Lasix and albumin as needed. Thrombocytopenia Platelet count improved. Patient is no longer thrombocytopenic. Peripheral blood smear is not informative. Continue to hold anticoagulant. On SCDs Bipolar disorder/depression/anxiety Hold oral meds given n.p.o. status. VTE: SCD. Avoid anticoagulants due to multiple drop in hemoglobin. Code: Full Dispo: SNF vs LTAC
--- NOTE | 2023-05-20 08:24 | P.PN ---
Date of Service: 05/20/23 Chief Complaint: Respiratory failure Subjective: Patient developed fevers up to 104.8 F over the weekend. Physical Examination Temp Pulse Resp BP Pulse Ox 98.9 F 60 21 H 101/62 100 05/20/23 06:00 05/20/23 07:00 05/20/23 06:00 05/20/23 07:00 05/20/23 07:00 General: Intubated. Awake, oriented x1. HEENT: Atraumatic, Normocephalic. ET tube. NG tube to low intermittent suction. Respiratory: Diminished bilaterally. Coarse breath sounds. On mechanical ventilation. Cardiovascular: Regular rate and rhythm. Gastrointestinal: Abdominal surgical incision sites with ARMIN drain x 3 Integumentary: Abdominal surgical incision sites dressing clean dry and intact Urinary: Carl catheter Laboratory Data - Reviewed Microbiology Data - Reviewed Imagings Data: - Reviewed Medications List: Reviewed Assessment and plan Problem List Gastric pouch perforation/rupture s/p repair on 05/05 Acute blood loss anemia secondary to gastric pouch perforation Acute Hypoxic Respiratory Failure Acute Kidney Injury Acetaminophen Toxicity Bipolar disorder Depression Anxiety Gastric Pouch Perforation/Rupture/Bleeding - History of laura-en-Y bypass - Underwent emergent exploratory laparotomy with findings of acute abdominal pneumoperitoneum, hemoperitoneum, gastric pouch perforation/rupture/bleeding --> small bowel laura limb repair, repair of gastric pouch rupture with bleeding control, extensive lysys of adhesions, jejunostomy, evacuation of hemoperitoneum performed by Dr. Foster on 05/05. - Blood cultures 05/05: No growth to date - Repeat blood culture 05/11: No growth 24 hours - Urine culture 05/06: No growth to date - Pus drainage from midline abdominal incision site by Dr. 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 Fluconazole switched to Micafugin 05/20. Patient developed fevers up to 104.8 F on 05/18. Blood cultures obtained 05/18, no growth to date. Urinalysis not suggestive of UTI. Recommendations - Due to patient developing fevers over the weekend up to 104.8 F, recommend continuing Meropenem, Vancomycin and Micafungin for now. COVID/Influenza A&B swab ordered, pending. Follow up with results. - Abdominal surgical site wound care per surgery team - Monitor WBC and fever trends - Oral care while intubated - Pressure offloading measures. Turn patient q2h, wedge pillow, low air-loss mattress. Apply barrier cream to sacrum/buttocks Case discussed with Bam Kaye
[2023-05-20] MEDS ORDERED: POTASSIUM PHOS IN 0.9 % NACL 15 MMOL/250 ML BAG IV ONE (08:30)
[2023-05-20] MEDS: PANTOPRAZOLE 40 MG INJ IVP SCH ×2 (08:58→21:13)
[2023-05-20] MEDS: DEXMEDETOMIDINE HCL 1,000 MCG in NA CHLORIDE 0.9% 490 ML IV SCH (08:58)
[2023-05-20] MEDS: ENOXAPARIN 40 MG/0.4 ML SQ SCH (08:58)
[2023-05-20] MEDS ORDERED: MICAFUNGIN SODIUM 100 MG VIAL IV SCH (09:00)
[2023-05-20] MEDS ORDERED: NA CHLORIDE 0.9% 100 ML ONE (09:27)
[2023-05-20] MEDS: FLUCONAZOLE 400 MG IVPB 400 MG/200 ML BAG IV SCH (09:35)
[2023-05-20] MEDS: FENTANYL CITR 100 MCG/2 ML IV PRN ×2 (10:46→19:56)
[2023-05-20] MEDS ORDERED: FENTANYL CITR 100 MCG/2 ML ONE (10:56)
[2023-05-20] MEDS ORDERED: MIDAZOLAM HCL 2 MG/2 ML INJ ONE (11:36)
[2023-05-20] MEDS ORDERED: HYDROMORPHONE HCL 2 MG/ML inj ONE (11:37)
[2023-05-20] MEDS: MIDAZOLAM HCL 2 MG/2 ML INJ IV PRN (12:00)
--- NOTE | 2023-05-20 12:40 | P.PN ---
Subjective Date of Service: 05/20/23 Chief Complaint: Fever patient on a ventilator Patient is doing well stable however she has a slight fever Review of Systems is unable to be obtained Physical Examination - Vital Signs Temperature: 99.1 F Blood Pressure: 171/94 Pulse: 61 Respirations: 27 Pulse Ox (%): 97 - Physical Exam General: Alert, Cooperative Neck: Supple Respiratory: Clear to auscultation bilaterally, Diminished Cardiovascular: No edema, Regular rate/rhythm Gastrointestinal: Hypoactive, Non-distended Assessment And Plan - Current Problems (Diagnosis) (1) Respiratory failure Current Visit: Yes Status: Acute Plan: Patient is doing better tolerating spontaneous breathing trial currently on 30% FiO2 hemodynamically stable awaiting gastric Raffin study prior to extubating the patient been a slight decrease in hemoglobin Qualifiers: Chronicity: acute (2) Fever Current Visit: Yes Status: Acute Plan: Patient has borderline temperature cultures are so far negative vancomycin was restarted budding yeast noticed on the urine changed to IV micafungin DC Diflucan high risk for Anastasia glabrata patient is on TPN and has recent abdominal surgery Qualifiers: Encounter type: subsequent encounter
[2023-05-20] MEDS: HYDROMORPHONE HCL 2 MG/ML inj IV PRN (12:45)
--- NOTE | 2023-05-20 13:09 | RAD REPORT ---
EXAM DESCRIPTION: RAD - Upper GI W/KUB - 05/20/2023 12:30 pm CLINICAL HISTORY: GI bleed Abdominal pain COMPARISON: Abdomen Pelvis W Contrast dated 11/23/2022; Chest Abdomen Pelvis W Cont dated 05/18/2023 FINDINGS: Enteric tube was injected with Gastrografin to evaluate 4 contrast leakage. Approximately 22:30 a.m. elsewhere and injected. The stomach cavity is seen without contrast leakage seen into the peritoneal cavity. Six images were obtained. Fluoroscopy time 2 minutes and 19 seconds. IMPRESSION: No contrast leakage was seen during the study.
[2023-05-20] MEDS: MICAFUNGIN SODIUM 100 MG in NA CHLORIDE 0.9% 100 ML IV SCH (14:00)
[2023-05-20] MEDS: AA 5%/D20W/ELECTROLYTES-TPN 2,000 ML, Lipids 20% 250 ML with MULTIVITAMINS INJ 10 ML IV SCH ×3 (19:28)
[2023-05-20] MEDS ORDERED: VANCOMYCIN 1 GM/VIAL ONE (21:10)
[2023-05-20] MEDS ORDERED: VANCOMYCIN 500 MG/VIAL ONE (21:10)
[2023-05-20] MEDS: VANCOMYCIN 1.5 GM in Dextrose 5%-Water 500 ML IVPB SCH (21:32)
--- NOTE | 2023-05-20 22:31 | PN ---
Date of Progress Note: 05/20/2023 Subjective: The patient is doing better. We did the Gastrografin study today, shows proximal stomac h still patent with no leak. Objective: Chest: Clear. Abdomen: Soft and depressible. Intact surgical sites. No cellulitis of the incision. No redness. Extremities: Good capillary refill. Plan: From the surgical standpoint, it is okay from us for the extubation. They are planning to do that I believe tomorrow. We have only 1 problem, the person by accident pulled the jejunostomy tube that we were trying to preserve for a long time. It is our way how we can feed this patient since th e stomach cannot be used. Unfortunately, I do not think I can save that. Going for surgery at this moment is not an option, so she may become TPN dependent. We discussed with the patient. She is artem ke at this moment the importance of not pulling stuff, this is what we have been preventing for a joon g time, but at the same time, there is some much we can explain, so please do not use a feeding tube. Unfortunately, I have to check the patency of it. TABATHA/JIMMIE Voice ID: [id number] Report ID: [id number]
--- NOTE | 2023-05-21 00:07 | PN ---
Date of Progress Note: 05/20/2023 Chief Complaint: Acute kidney injury. Subjective: The patient remains intubated. She was on pressors for severe hypotension and shock. T he patient developed fever when on ventilator. She remains bedridden. Review of Systems: Unobtainable. Physical Examination: General: Patient appears acutely ill. HEENT: Atraumatic, normocephalic. Neck: Supple. Respiratory: Coarse breath sounds bilaterally. Symmetric chest expansion. Cardiovascular: S1, S2. Extremities: Slight edema. Impression And Plan: 1.Acute kidney injury secondary to poor perfusion causing acute tubular necrosis. Serum creatinine level improved to 0.8. Patient is on TPN. She is off tube feeding due to recent surgery for perfora nanette viscus. The patient is on TPN to treat hypokalemia, hypomagnesemia, and hypophosphatemia. The p atient was treated for hypernatremia. IV fluids were adjusted as well as the TPN was started and gualberto ctrolytes were adjusted in TPN. 2.Hypophosphatemia, phosphorus repletion as needed. Currently, patient is on TPN. 3.Gastric pouch perforation status post surgery. Further recommendation per primary team and surger y. 4.Acute respiratory failure. ICU team is following. 5.Anemia. Transfuse packed red blood cells if hemoglobin is less than 7. EB/MODL Voice ID: [id number] Report ID: [id number]
[2023-05-21] MEDS: DEXMEDETOMIDINE HCL 1,000 MCG in NA CHLORIDE 0.9% 490 ML IV SCH (00:35)
[2023-05-21] MEDS: MIDAZOLAM HCL 2 MG/2 ML INJ IV PRN (01:40)
[2023-05-21] MEDS: MEROPENEM IV SCH ×3 (01:40→17:51)
[2023-05-21] MEDS: D5W IV SCH ×3 (01:40→17:51)
[2023-05-21] MEDS ORDERED: Meropenem 1000 MG/VIAL IV ONE ×4 (01:49→21:25)
[2023-05-21] MEDS ORDERED: MIDAZOLAM HCL 2 MG/2 ML INJ ONE (01:49)
[2023-05-21] MEDS ORDERED: NA CHLORIDE 0.9% 0 ML ONE (01:49)
[2023-05-21] MEDS ORDERED: D5W 100 ML IV ONE ×2 (01:53→21:26)
[2023-05-21 05:54] LABS: Hematocrit 23.7 % (36.0-45.0); MCV 96.9 fL (80-100); MPV 10.4 fL (7.6-11.3); Platelets 214 thou/uL (152-406); RBC Red Blood Cell Count 2.45 M/uL (3.86-4.86)
[2023-05-21 06:01] LABS: Albumin 1.7 g/dL (3.4-5.0); Bilirubin Total 0.8 mg/dL (0.2-1.0); Magnesium 1.9 mg/dL (1.6-2.4); Phosphorus 2.5 mg/dL (2.5-4.9); Potassium 3.8 mEq/L (3.5-5.1); Protein, Total 5.7 g/dL (6.4-8.2)
[2023-05-21] MEDS: ENOXAPARIN 40 MG/0.4 ML SQ SCH (07:56)
[2023-05-21] MEDS: PANTOPRAZOLE 40 MG INJ IVP SCH ×2 (07:57→22:05)
[2023-05-21] MEDS ORDERED: POTASSIUM PHOS IN 0.9 % NACL 15 MMOL/250 ML BAG IV ONE (08:00)
[2023-05-21] MEDS ORDERED: KCL 20 MEQ/100 mL IVPB 20 MEQ/100 ML BAG IV SCH (08:00)
[2023-05-21] MEDS ORDERED: NA CHLORIDE 0.9% 100 ML ONE ×2 (08:23→17:59)
--- NOTE | 2023-05-21 08:29 | RAD REPORT ---
EXAM DESCRIPTION: RADChest Single View05/21/2023 4:38 am CLINICAL HISTORY: f/u opacities, pre-extubation COMPARISON: Chest Single View dated 05/18/2023; Chest Single View dated 05/16/2023; Chest Single Vie w dated 05/15/2023; Chest Single View dated 05/14/2023 TECHNIQUE: Portable AP view of the chest. FINDINGS: Endotracheal tube terminates 3.5 cm above the meg may have been slightly retracted. Ent robert tube courses below the lower filled margin. Left IJ CVC unchanged in position, with tip projecti ng over the proximal SVC The lungs are clear, with improvement of left basilar predominant opacities. Decreased inspiratory effort somewhat limits evaluation. No pneumothorax or effusion. The cardiomed iastinal contours are unremarkable. IMPRESSION: Improving airspace opacities as above. Satisfactory positioning of life support devices.
[2023-05-21 09:07] LABS: SARS-COV-2 RT PCR NEGATIVE (NEGATIVE)
--- NOTE | 2023-05-21 12:13 | P.PN ---
Subjective Date of Service: 05/21/23 Chief Complaint: Respiratory failure Patient is doing much better no fever alert responsive cooperative elevated the spontaneous breathing trial and was extubated Review of Systems is unable to be obtained Physical Examination - Vital Signs Temperature: 97.8 F Blood Pressure: 160/102 Pulse: 81 Respirations: 23 Pulse Ox (%): 100 - Physical Exam General: Alert, Oriented x1 Respiratory: Clear to auscultation bilaterally Cardiovascular: No edema, Regular rate/rhythm, Normal S1 S2 Assessment And Plan - Current Problems (Diagnosis) (1) Respiratory failure Current Visit: Yes Status: Acute Plan: Respiratory failure patient is doing well was extubated after 1 hour of s pontaneous breathing trial blood pressure elevated continue with bedside physical therapy Qualifiers: Chronicity: acute (2) Fever Current Visit: Yes Status: Acute Plan: No fever recently continue with micafungin patient has NG tube feeds in addition to TPN Qualifiers: Encounter type: subsequent encounter
[2023-05-21] MEDS: MICAFUNGIN SODIUM 100 MG in NA CHLORIDE 0.9% 100 ML IV SCH (13:08)
--- NOTE | 2023-05-21 14:03 | P.PN ---
Date of Service: 05/21/23 Chief Complaint: Respiratory failure Subjective: Improving. Extubated this morning. Tolerating well. Physical Examination Temp Pulse Resp BP Pulse Ox 97.8 F 91 H 17 159/102 H 100 05/21/23 12:13 05/21/23 13:00 05/21/23 13:00 05/21/23 13:00 05/21/23 13:00 General: Intubated. Awake, oriented x2-3 HEENT: Atraumatic, Normocephalic. NG tube. Respiratory: Diminished at bases. Coarse breath sounds. On mechanical ventilation. Cardiovascular: Regular rate and rhythm. Gastrointestinal: Abdominal surgical incision sites with ARMIN drain x 3. 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 Foster on 05/05. - Blood cultures 05/05: No growth to date - Repeat blood culture 05/11: No growth 24 hours - Urine culture 05/06: No growth to date - Pus drainage from midline abdominal incision site by Dr. 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 Fluconazole switched to Micafugin 05/20. Patient developed fevers up to 104.8 F on 05/18. Blood cultures obtained 05/18, no growth to date. Urinalysis not suggestive of UTI. negative covid 05/20 negative influenza A&B 05/20 Recommendations - Patient still with fevers 100.8 F, recommend continuing Meropenem, Vancomycin and Micafungin for now. Will reevaluate tomorrow and consider discontinuation of Meropenem and Vancomycin as patient is on day 15 of antibiotics. - Abdominal surgical site wound care per surgery team - Monitor WBC and fever trends - Oral care while intubated - Pressure offloading measures. Turn patient q2h, wedge pillow, low air-loss mattress. Apply barrier cream to sacrum/buttocks Case discussed with Bam Kaye
--- NOTE | 2023-05-21 14:25 | P.PN ---
Subjective Date of Service: 05/21/23 Chief Complaint: Respiratory failure Patient is awake and interactive but appears confused. She is tolerating 3 L oxygen by nasal cannula with SaO2 of 100% She was extubated this morning. NG tube in place. Hypertensive. Physical Examination - Vital Signs Temperature: 97.8 F Blood Pressure: 159/102 Pulse: 91 Respirations: 17 Pulse Ox (%): 100 Assessment And Plan - Plan Physical exam GEN: Awake, tracking with eyes, following simple commands HEENT: NG tube CV: Regular rate and rhythm, bilateral upper and lower extremity edema improved. Pulm: Bilateral crackles. Adequate breath sounds bilaterally. ABD: [address], J tube in place, abd soft, dressings CDI Integumentary: Ecchymosis right shoulder. Neuro: Follow commands, no focal motor deficit. 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 S/P repair 05/05 Acute blood loss anemia secondary to above Hypovolemic shock secondary to GI bleed Acute hypoxic respiratory failure Acetaminophen toxicity Acute kidney injury secondary to acute blood loss anemia, hypotension/prerenal state Fever Hypoglycemia Malnutrition/hypoalbuminemia Bipolar disorder/depression/anxiety 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 Acute blood loss anemia secondary to upper GI bleed Hypovolemic shock secondary to GI bleed S/P Ex lap-small bowel laura limb repair, repair of gastric pouch 05/05 Now with 3 ARMIN drains, J tube in place-mild leaking from J-tube Fever on 05/17-repeat blood cultures-no growth, CT 05/18 with no obvious infe ctious findings-atelectasis vs infiltrate Continue vancomycin and meropenem. S/P EGD 05/05 with large clot in gastric pouch and fresh blood in esophagus, injected with epi in surrounding area. NG tube draining gastric fluid no sign of blood Protonix BID Feeding via J tube at 10ml/hr recommended by surgery Dr. Foster- seems to have leaking from J tube site. Feeding discontinued. GI, General Surgery are following. Continue TPN at the current rate. Total 6 units PRBC transfused. Wean off oxygen. Fever No clear source of infection new fevers 05/17 Blood cultures: No growth. CT 05/18 with no obvious infectious findings-atelectasis vs infiltrate Leukocytosis improved Continue empiric IV antibiotics/antifungals Infectious disease following Acute hypoxic respiratory failure/acute lung injury Patient extubated to oxygen by nasal cannula Pulmonolgy is following. Sputum culture grew Pseudomonas. continue Merrem Acetaminophen toxicity Patient completed acetylcysteine IV infusion for APAP toxicity. Monitor LFTs Acute kidney injury secondary to acute blood loss anemia, hypotension/prerenal state JERI resolved. Nephrology is following. Continue TPN. Intermittent IV Lasix and albumin per nephrology Monitor renal function. Monitor and optimize electrolytes. Hypoglycemia Continue TPN Fingerstick glucose monitoring. Malnutrition/hypoalbuminemia TPN Albumin as needed Anasarca Improved. Intermittent Lasix and albumin as needed. Thrombocytopenia Platelet count improved. Patient is no longer thrombocytopenic. Peripheral blood smear is not informative. Patient started on Lovenox for DVT prophylaxis/ Bipolar disorder/depression/anxiety Hold oral meds given n.p.o. status. VTE: On Lovenox. Code: Full Dispo: SNF vs LTAC
--- NOTE | 2023-05-21 15:28 | PN ---
Date of Progress Note: 05/21/2023 Subjective: The patient was admitted to the hospital with acute kidney injury, anasarca. The patient was oliguric after Lasix. The patient converted to nonoliguric. Anasarca has been resolved. The patient had perforated viscus. The patient's septic shock recovered. The patient extubated today, awake, alert. Physical Examination: Vital Signs: Blood pressure 160/99, pulse of 81, afebrile. Chest: Decreased entry bilateral base. Heart: S1, S2. Systolic murmur. Abdomen: Soft, nontender. Dressing. Extremities: Plus edema. Neurologic: Alert. Moving 4 extremities. No focality. Oriented to place and person. Laboratory Data: Hemoglobin 7.8, WBC 6.3, sodium 139, potassium 3.8, bicarb 27, BUN 23, creatinine 0.4, calcium 7.7, phosphorus 2.5, magnesium 1.9, albumin 1.7, corrected calcium is 9.5. Current Medications: The patient is on PPN, meropenem 1 g every 8 hours, micafungin, vancomycin, Lovenox, Pantoprazole, fentanyl, KCl. Assessment And Plan: 1. Acute kidney injury secondary to toxic ATN, poor perfusion ATN, continue to recover, nonoliguric, currently kidney function normalized. The patient normal volume, extubated. We will continue to monitor the patient. 2. Hypokalemia. We will continue PPN. 3. Hyponatremia, dilutional, recover, resolve. 4. Perforated viscus. Follow up with Surgery. 5. Respiratory failure secondary to over volume, recover, extubated. Follow up with Pulmonary. 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
[2023-05-21] MEDS: HYDROMORPHONE HCL 2 MG/ML inj IV PRN (15:32)
[2023-05-21] MEDS: AA 5%/D20W/ELECTROLYTES-TPN 2,000 ML IV SCH (17:51)
[2023-05-21] MEDS: VANCOMYCIN 1.5 GM in Dextrose 5%-Water 500 ML IVPB SCH (22:05)
[2023-05-22] MEDS: D5W IV SCH ×3 (01:42→18:26)
[2023-05-22] MEDS: MEROPENEM IV SCH ×3 (01:42→18:26)
[2023-05-22] MEDS ORDERED: Meropenem 500 MG VIAL IV ONE (01:53)
[2023-05-22] MEDS ORDERED: D5W 0 ML IV ONE (01:55)
[2023-05-22 05:13] LABS: Absolute Lymphocytes (CBC) 0.8 K/uL (0.7-4.9); Hematocrit 22.5 % (36.0-45.0); MCV 96.3 fL (80-100); MPV 10.1 fL (7.6-11.3); Platelets 231 thou/uL (152-406); RBC Red Blood Cell Count 2.33 M/uL (3.86-4.86)
[2023-05-22 06:02] LABS: Albumin 1.6 g/dL (3.4-5.0); Bilirubin Total 0.9 mg/dL (0.2-1.0); Magnesium 1.9 mg/dL (1.6-2.4); Potassium 3.5 mEq/L (3.5-5.1); Protein, Total 5.4 g/dL (6.4-8.2)
[2023-05-22] MEDS ORDERED: PANTOPRAZOLE INJ 80 MG in NA CHLORIDE 0.9% 250 ML IV SCH (08:00)
[2023-05-22] MEDS ORDERED: KCL 20 MEQ/100 mL IVPB 20 MEQ/100 ML BAG IV ONE (08:00)
[2023-05-22] MEDS ORDERED: SODIUM CHLORIDE 0.9% 10ML INJ IV PRN (08:28)
[2023-05-22] MEDS: PANTOPRAZOLE INJ 80 MG in D5W 250 ML IV SCH ×2 (08:43→18:26)
[2023-05-22] MEDS ORDERED: PANTOPRAZOLE 40 MG INJ IVP ONE (08:45)
[2023-05-22] MEDS: ENOXAPARIN 40 MG/0.4 ML SQ SCH (08:47)
[2023-05-22] MEDS ORDERED: PANTOPRAZOLE 40 MG INJ ONE (08:47)
[2023-05-22] MEDS ORDERED: D5W 100 ML IV ONE ×2 (08:55→18:42)
[2023-05-22] MEDS ORDERED: Meropenem 1000 MG/VIAL IV ONE ×3 (08:55→18:41)
--- NOTE | 2023-05-22 09:04 | P.PN ---
Date of Service: 05/22/23 Chief Complaint: Respiratory failure Subjective: Patient extubated yesterday, currently on 3L nasal cannula. She is oriented to self and responds to questions. Denies any complaints at this time. Denies any pain. Physical Examination Temp Pulse Resp BP Pulse Ox 97.4 F 122 H 19 156/87 H 100 05/22/23 04:00 05/22/23 08:00 05/22/23 08:00 05/22/23 08:00 05/22/23 08:00 General: Intubated. Awake, oriented x2-3 HEENT: Atraumatic, Normocephalic. NG tube. Respiratory: Diminished at bases. Coarse breath sounds. on 3L nasal cannula. Cardiovascular: Irregular rate, tachycardic. Trace BLE edema. Gastrointestinal: Abdominal surgical incision sites with ARMIN drain x 3. Integumentary: Abdominal surgical incision sites dressing clean dry and intact. ARMIN drain x3. 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 Foster on 05/05. - Blood cultures 05/05: No growth to date - Repeat blood culture 05/11: No growth 24 hours - Urine culture 05/06: No growth to date - Pus drainage from midline abdominal incision site by Dr. Foster at bedside 05/13 - CT abdomen pelvis 05/18: ": Bibasilar lung consolidations are present posteriorly which may represent infiltrate or atelectasis. There is no evidence of intra- abdominal or intrapelvic abscess collection. Small moderate left inguinal hernia containing nonobstructed small bowel." Acute Hypoxic Respiratory Failure - pulmonology following - sputum culture 05/11: Pseudomonoas aeruginosa - Treated with Meropenem IV. - Extubated 05/21 Antibiotics - Meropenem (05/06-) - Vancomycin (05/06-05/16) (05/19-) - Fluconazole (started 05/11-) due to high risk/concern for superimposed fungal infection. Fluconazole switched to Micafungin 05/20. Patient developed fevers up to 104.8 F on 05/18. Blood cultures obtained 05/18, no growth to date. Urinalysis not suggestive of UTI. negative covid 05/20 negative influenza A&B 05/20 Afebrile 24 hours Leukocytosis resolved. Recommendations - Continue Meropenem, Vancomycin and Micafungin. - Abdominal surgical site wound care per surgery team - Monitor WBC and fever trends - Pressure offloading measures. Turn patient q2h, wedge pillow, low air-loss mattress. Apply barrier cream to sacrum/buttocks - Aspiration precautions Case discussed with Bam Kaye
[2023-05-22] MEDS: HYDROMORPHONE HCL 2 MG/ML inj IV PRN (11:29)
[2023-05-22] MEDS ORDERED: ONDANSETRON 4 MG/2 ML VIAL ONE (11:40)
[2023-05-22] MEDS ORDERED: HYDROMORPHONE HCL 2 MG/ML inj ONE (11:40)
--- NOTE | 2023-05-22 12:06 | P.PN ---
Subjective Date of Service: 05/22/23 Chief Complaint: Upper GI bleeding Patient was doing better yesterday was extubated this morning unfortunately patient started having some bright red bleeding through her NG tube coughing up some blood otherwise no respiratory distress vital signs stable Review of Systems General: Weakness Physical Examination - Vital Signs Temperature: 97.4 F Blood Pressure: 139/82 Pulse: 121 Respirations: 28 Pulse Ox (%): 100 - Physical Exam General: Alert, Delirious Respiratory: Clear to auscultation bilaterally Cardiovascular: No edema, Regular rate/rhythm Assessment And Plan - Current Problems (Diagnosis) (1) Respiratory failure Current Visit: Yes Status: Acute Plan: Patient was successfully extubated yesterday no signs oxygenation stable no fever for the past 24 hours Qualifiers: Chronicity: acute (2) Fever Current Visit: Yes Status: Acute Plan: Afebrile for the past 24 hours cultures negative so far Qualifiers: Encounter type: subsequent encounter (3) Upper GI bleed Current Visit: Yes Status: Acute Plan: Continue to monitor H&H and is on pantoprazole IV drip
[2023-05-22 12:16] LABS: Hematocrit 20.6 % (36.0-45.0)
--- NOTE | 2023-05-22 12:59 | P.PN ---
Subjective Date of Service: 05/22/23 Chief Complaint: Upper GI bleeding Patient is awake and interactive but confused. NG tube outputs is bloody today. She is tolerating 3 L oxygen by nasal cannula with SaO2 of 100% Patient extubated on 05/21. She has been experiencing tachycardia since this morning. Physical Examination - Vital Signs Temperature: 97.4 F Blood Pressure: 139/82 Pulse: 121 Respirations: 28 Pulse Ox (%): 100 Assessment And Plan - Plan Physical exam GEN: Awake, tracking with eyes, following simple commands HEENT: NG tube CV: Regular rate and rhythm, bilateral upper and lower extremity edema improved. Pulm: Bilateral crackles. Adequate breath sounds bilaterally. ABD: [address], J tube in place, abd soft, dressings CDI Integumentary: Ecchymosis right shoulder. Neuro: Follow commands, no focal motor deficit. 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 S/P EGD 05/05 with large clot in gastric pouch and fresh blood in esophagus, i njected with epi in surrounding area. NG tube draining blood today. Case discussed with Dr. Foster will recall recommend to continue protonix. J-tube Feeding discontinued due to leak. Dr. Foster is considering removing the J-tube GI, General Surgery are following. Continue TPN at the current rate. Total 6 units PRBC transfused. Transfuse 1 more unit given hemoglobin of 6.9 today. Wean off oxygen. Fever No clear source of infection new fevers 05/17 Blood cultures: No growth. CT 05/18 with no obvious infectious findings-atelectasis vs infiltrate Leukocytosis improved Continue empiric IV antibiotics/antifungals Infectious disease following Acute hypoxic respiratory failure/acute lung injury Patient extubated to oxygen by nasal cannula Pulmonolgy is following. Sputum culture grew Pseudomonas. continue Merrem Acetaminophen toxicity Patient completed acetylcysteine IV infusion for APAP toxicity. Monitor LFTs Acute kidney injury secondary to acute blood loss anemia, hypotension/prerenal state JERI resolved. Nephrology is following. Continue TPN. Intermittent IV Lasix and albumin per nephrology Monitor renal function. Monitor and optimize electrolytes. Hypoglycemia Continue TPN Fingerstick glucose monitoring. Malnutrition/hypoalbuminemia TPN Albumin as needed Anasarca Improved. Intermittent Lasix and albumin as needed. Thrombocytopenia Resolved. Peripheral blood smear was not informative. Discontinue Lovenox. Bipolar disorder/depression/anxiety Hold oral meds given n.p.o. status. VTE: SCD Code: Full Dispo: SNF vs LTAC
--- NOTE | 2023-05-22 13:10 | PN ---
Date of Progress Note: 05/22/2023 Subjective: The patient was admitted with perforated viscus. The patient had acute kidney injury secondary to poor perfusion ATN, had anasarca. The patient did not require any renal replacement therapy response to diuresis. The patient developed GI bleed over the night. Physical Examination: Vital Signs: Blood pressure 139/82, pulse of 121. Chest: Decreased entry bilateral base. Heart: S1, S2. Systolic murmur. Abdomen: Soft, nontender. NG tube with bloody content. Extremities: No edema. Neurologic: Alert. No focality. Laboratory Data: Chest x-ray, decrease in congestion significantly. Laboratory Data: Hemoglobin 7.2, sodium 139, potassium 3.5, bicarb 26, BUN 21, creatinine 0.4, calcium 7.9, phos 3, magnesium of 1.9, albumin 1.6, corrected calcium is 9.5. Current Medications: 1. Meropenem. 2. Micafungin. 3. Vancomycin. 4. Lovenox 40 daily. 5. Zofran. 6. Pantoprazole. 7. Fentanyl. 8. KCl. Assessment And Plan: 1. Acute kidney injury secondary to poor perfusion ATN, recovered, resolved. Looked to me on the normal volume. I am going to keep holding on the diuresis for the time being and we will monitor the patient. 2. Hypertension, controlled, optimal. Continue to avoid any KIERRA inhibitor or ARB. 3. Anasarca secondary to fluid resuscitation, resolved. We will continue to watch the patient closely. 4. Hyponatremia secondary to dilutional, resolved. 5. Hypokalemia. We will supplement cautiously. 6. GI bleed, perforated viscus. We will follow up with Surgery. Continue PPI. 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
[2023-05-22] MEDS: MICAFUNGIN SODIUM 100 MG in NA CHLORIDE 0.9% 100 ML IV SCH (15:10)
[2023-05-22] MEDS ORDERED: NA CHLORIDE 0.9% 250 ML ONE ×2 (16:12→21:22)
[2023-05-22] MEDS: AA 5%/D20W/ELECTROLYTES-TPN 2,000 ML, Lipids 20% 250 ML with MULTIVITAMINS INJ 10 ML IV SCH ×3 (18:25)
[2023-05-22] MEDS ORDERED: NA CHLORIDE 0.9% 100 ML ONE (18:36)
[2023-05-22] MEDS: VANCOMYCIN 1.5 GM in Dextrose 5%-Water 500 ML IVPB SCH (22:14)
[2023-05-23] MEDS ORDERED: levETIRAcetam 1,000 MG in NA CHLORIDE 0.9% 100 ML IV ONE (00:40)
[2023-05-23] MEDS ORDERED: LORazepam 2 MG/ML VIAL ONE ×2 (00:46→03:21)
[2023-05-23] MEDS ORDERED: LEVETIRACETAM 500 MG/5 ML VIAL IV ONE (00:50)
[2023-05-23] MEDS ORDERED: NA CHLORIDE 0.9% 100 ML ONE (00:51)
[2023-05-23] MEDS ORDERED: NA CHLORIDE 0.9% 250 ML ONE (00:51)
[2023-05-23] MEDS: LORazepam 2 MG/ML VIAL IV PRN ×4 (00:56→21:24)
[2023-05-23 01:36] LABS: Absolute Lymphocytes (CBC) 2.5 K/uL (0.7-4.9); Hematocrit 25.8 % (36.0-45.0); Lymphocytes % 15.6 % (15.3-44.8); MCV 94.1 fL (80-100); MPV 10.8 fL (7.6-11.3); Platelets 271 thou/uL (152-406); RBC Red Blood Cell Count 2.75 M/uL (3.86-4.86)
[2023-05-23 02:15] LABS: Albumin 1.8 g/dL (3.4-5.0); Potassium 3.8 mEq/L (3.5-5.1); Protein, Total 5.5 g/dL (6.4-8.2)
[2023-05-23] MEDS: HYDROMORPHONE HCL 2 MG/ML inj IV PRN ×3 (03:48→21:24)
[2023-05-23 03:54] LABS: Absolute Lymphocytes (CBC) 0.7 K/uL (0.7-4.9); Hematocrit 24.1 % (36.0-45.0); Lymphocytes % 5.9 % (15.3-44.8); MCV 92.2 fL (80-100); MPV 9.9 fL (7.6-11.3); Platelets 242 thou/uL (152-406); RBC Red Blood Cell Count 2.61 M/uL (3.86-4.86)
[2023-05-23] MEDS: MEROPENEM IV SCH ×3 (03:57→16:48)
[2023-05-23] MEDS: D5W IV SCH ×3 (03:57→16:48)
[2023-05-23] MEDS ORDERED: Meropenem 500 MG VIAL IV ONE (04:08)
[2023-05-23] MEDS ORDERED: D5W 100 ML IV ONE ×2 (04:09→16:30)
[2023-05-23 04:30] LABS: Potassium 4.1 mEq/L (3.5-5.1)
[2023-05-23] MEDS: PANTOPRAZOLE INJ 80 MG in D5W 250 ML IV SCH ×2 (04:39→15:41)
--- NOTE | 2023-05-23 07:56 | P.PN ---
Date of Service: 05/23/23 Chief Complaint: Respiratory failure Subjective: Patient seen and examined at bedside. Mentation worsening- she is confused and restless this morning, not following commands. CT head/spine obtained. - CT head spine wo contrast 05/23: "No acute intracranial or extra-axial abnormality. No acute cervical spine injury." - XR Chest 05/23: "Patchy bibasilar opacities, left greater than right (atelectasis and/or infiltrate)." Physical Examination Temp Pulse Resp BP Pulse Ox 99.1 F 95 H 19 126/77 100 05/23/23 07:00 05/23/23 07:00 05/23/23 07:00 05/23/23 07:00 05/23/23 07:00 General: Restless, not oriented, not following commands. HEENT: Atraumatic, Normocephalic. NG tube. Respiratory: Diminished at bases. + Rhonchi. On 3L nasal cannula. Cardiovascular: Tachycardic. Trace BLE edema. Gastrointestinal: Abdominal surgical incision sites with ARMIN drain x 3. Integumentary: Abdominal surgical incision sites dressing clean dry and intact. ARMIN drain x3. Urinary: Carl catheter Laboratory Data - Reviewed Microbiology Data - Reviewed Imagings Data: - CT abdomen pelvis 05/18: ": Bibasilar lung consolidations are present posteriorly which may represent infiltrate or atelectasis. There is no evidence of intra- abdominal or intrapelvic abscess collection. Small moderate left inguinal hernia containing nonobstructed small bowel." - XR Chest 05/23: "Patchy bibasilar opacities, left greater than right (atelectasis and/or infiltrate)." - CT head spine wo contrast 05/23: "No acute intracranial or extra-axial abnormality. 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 Foster on 05/05. - Blood cultures 05/05: No growth to date - Repeat blood culture 05/11: No growth 24 hours - Urine culture 05/06: No growth to date - Pus drainage from midline abdominal incision site by Dr. Foster at bedside 05/13 - CT abdomen pelvis 05/18: ": Bibasilar lung consolidations are present posteriorly which may represent infiltrate or atelectasis. There is no evidence of intra- abdominal or intrapelvic abscess collection. Small moderate left inguinal hernia containing nonobstructed small bowel." - Fluconazole started 05/11 due to high risk/concern for superimposed fungal infection, patient also on TPN. -> Switched to Micafungin on 05/20 Acute Hypoxic Respiratory Failure - pulmonology following - sputum culture 05/11: Pseudomonoas aeruginosa - Treated with Meropenem IV. - Extubated 05/21 - XR Chest 05/23: "Patchy bibasilar opacities, left greater than right (atelectasis and/or infiltrate)." Current Anti-Infective Agents - Meropenem (05/06-) - Vancomycin (05/06-05/16) (05/19-) - Micafungin (05/20-) 05/18: Patient developed fevers up to 104.8 F on 05/18. Blood cultures obtained 05/18, no growth to date. Urinalysis not suggestive of UTI. Negative covid 05/20. Negative influenza A&B 05/20 Afebrile 48 hours Leukocytosis improving (WBC 15.7 -> 12.1) Recommendations - Continue with Meropenem, Vancomycin and Micafungin. - Abdominal surgical site wound care per surgery team - Monitor WBC and fever trends - Pressure offloading measures. Turn patient q2h, wedge pillow, low air-loss mattress. Apply barrier cream to sacrum/buttocks - Aspiration precautions Case discussed with Bam Kaye
[2023-05-23 08:10] LABS: Hematocrit 23.2 % (36.0-45.0)
[2023-05-23] MEDS ORDERED: VANCOMYCIN 1.5 GM in Dextrose 5%-Water 500 ML IVPB SCH (09:00)
[2023-05-23] MEDS: FENTANYL CITR 100 MCG/2 ML IV PRN (10:22)
[2023-05-23 11:37] LABS: Blood Morphology Comment NOT SEEN (NOT SEEN); Platelet Estimate ADEQ
--- NOTE | 2023-05-23 12:32 | RAD REPORT ---
EXAM DESCRIPTION: CT - Head C Spine Mpr Wo Con - 05/23/2023 6:39 am CLINICAL HISTORY: Seizure TECHNIQUE: Axial computed tomography images of the head/brain and cervical spine without intravenous contrast. Sagittal and coronal reformatted images were created and reviewed. This CT exam was pe rformed using one or more of the following dose reduction techniques: automated exposure control, a djustment of the mA and/or kV according to patient size, and/or use of iterative reconstruction techn ique. COMPARISON: Head CT dated 05/15/2023 FINDINGS: Brain: Mild cerebral atrophy and minimal bilateral periventricular and subcortical white matter low attenuation which is nonspecific and can be seen in the setting of chronic microvascular angiopathy. No hemorrhage. Ventricles: Unremarkable. No ventriculomegaly. Skull: No acute fracture. Sinuses: Mild to moderate left maxillary sinus mucosal thickening with bubbly opacification. Mastoid air cells: Partial opacification of the mastoid air cells bilaterally. Sella: Incidental note is made of an empty sella. Vertebrae: Unremarkable. No acute fracture. Normal alignment. Discs/spinal canal/neural foramina: Mild multilevel osteophytic lipping. No canal stenosis. Soft tissues: Unremarkable. IMPRESSION: 1. No acute intracranial or extra-axial abnormality. 2. No acute cervical spine injury. 3. Other findings as above. Electronically signed by: Josh Molina MD 05/23/2023 02:59 AM OFFICE MACHINES SALES REPRESENTATIVE Due to temporary technical issues with the PACS/Fluency reporting system, reports are being signed by the in house radiologists without review as a courtesy to insure prompt reporting. The interpreting radiologist is fully responsible for the content of the report.
--- NOTE | 2023-05-23 13:05 | RAD REPORT ---
EXAM DESCRIPTION: RAD - Chest Single View - 05/23/2023 1:34 am CLINICAL HISTORY: Seizure TECHNIQUE: Frontal view of the chest. COMPARISON: XR Chest dated 05/05/2023 FINDINGS: Lungs: Patchy bibasilar opacities, left greater than right. Overall lung aeration has improved. Pleural space: Unremarkable. No pneumothorax. Heart: Unremarkable. No cardiomegaly. Mediastinum: Unremarkable. Normal mediastinal contour. Bones/joints: Unremarkable. No acute fracture. Tubes, lines and devices: Left internal jugular central venous catheter tip projects over the super ior vena cava brachiocephalic junction. Enteric catheter tip collimated off the [id number]. The di stal visualized portion projects over the left upper quadrant in the expected region of the stomach. IMPRESSION: Patchy bibasilar opacities, left greater than right (atelectasis and/or infiltrate). Electronically signed by: Josh Molina MD 05/23/2023 02:17 AM BOW MAKER [employer]ODUCTION Due to temporary technical issues with the PACS/Fluency reporting system, reports are being signed by the in house radiologists without review as a courtesy to insure prompt reporting. The interpreting radiologist is fully responsible for the content of the report.
--- NOTE | 2023-05-23 13:10 | PN ---
Date of Progress Note: 05/22/2023 Subjective: The patient was admitted with perforated viscus. The patient had acute kidney injury, anasarca. The patient did not require any renal replacement therapy response to diuresis. The patient developed GI bleed over the night. Physical Examination: Vital Signs: Blood pressure 111/50, pulse of 74. Chest: Decreased entry bilateral base. Heart: S1, S2. Systolic murmur. Abdomen: NG tube with bloody suction. Mild tenderness. No guarding. Extremities: Trace edema. Neurologic: Alert. No focality. Current Medications: The patient is on include: 1. Meropenem. 2. Micafungin. 3. Vancomycin. 4. Tylenol. 5. Lorazepam. 6. Keppra. 7. Pantoprazole. 8. KCl. Assessment And Plan: 1. Acute kidney injury secondary to prerenal toxic acute tubular necrosis, poor perfusion, acute tubular necrosis, recovered, resolved. Currently, normal volume. Keep holding diuresis. 2. Hypertension, controlled, optimal with the presence of active gastrointestinal bleed. Hold all blood pressure medication. 3. Anasarca secondary to fluid resuscitation, recovered, resolved, diuresing well. Currently off any diuresis. We will monitor. 4. Gastrointestinal bleed as by GI and Surgery. 5. Perforated viscus. Follow up with Surgery. time spend exam the patient face to face reviewing data lab and radiology placing order , discussing with the patient , discussing with the steam and power superintendent including hospitalist and nursing staff >35 min NATALIIA Voice ID: [id number] Report ID: [id number] ELENI
--- NOTE | 2023-05-23 14:39 | P.PN ---
Subjective Date of Service: 05/23/23 Chief Complaint: Upper GI bleeding Patient is reported to have had a seizure this morning NG tube outputs- brown colored, no fresh blood. She is tolerating 3 L oxygen by nasal cannula with SaO2 of 100% Patient extubated on 05/21. She is persistently tachycardic. Physical Examination - Vital Signs Temperature: 99.1 F Blood Pressure: 156/91 Pulse: 107 Respirations: 18 Pulse Ox (%): 100 Assessment And Plan - Plan Physical exam GEN: Awake, tracking with eyes, following simple commands HEENT: NG tube CV: Regular rate and rhythm, bilateral upper and lower extremity edema improved. Pulm: Bilateral crackles. Adequate breath sounds bilaterally. ABD: [address], J tube in place, abd soft, dressings CDI Integumentary: Ecchymosis right shoulder. Neuro: Follow commands, no focal motor deficit. 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 S/P EGD 05/05 with large clot in gastric pouch and fresh blood in esophagus, inj ected with epi in surrounding area. NG tube draining brown-colored fluid Dr. Foster is following. J-tube Feeding discontinued due to leak. Dr. Foster is considering removing the J-tube GI, General Surgery are following. Continue TPN at the current rate. Total 7 units PRBC transfused. Supplemental oxygen as needed. Fever No clear source of infection new fevers 05/17 Blood cultures: No growth. CT 05/18 with no obvious infectious findings-atelectasis vs infiltrate Leukocytosis improved No more fevers over several days Continue empiric IV antibiotics/antifungals Infectious disease following Acute hypoxic respiratory failure/acute lung injury Patient extubated to oxygen by nasal cannula Pulmonolgy is following. Sputum culture grew Pseudomonas. Patient treated with Merrem. Acetaminophen toxicity Patient completed acetylcysteine IV infusion for APAP toxicity. Monitor LFTs Acute kidney injury secondary to acute blood loss anemia, hypotension/prerenal state JERI resolved. Nephrology is following. Continue TPN. Intermittent IV Lasix and albumin per nephrology Monitor renal function. Monitor and optimize electrolytes. Hypoglycemia Continue TPN Fingerstick glucose monitoring. Malnutrition/hypoalbuminemia TPN Albumin as needed Anasarca Improved. Intermittent Lasix and albumin as needed. Thrombocytopenia Resolved. Peripheral blood smear was not informative. Discontinue Lovenox. Bipolar disorder/depression/anxiety Hold oral meds given n.p.o. status. Seizures Case discussed with neurology Dr. Cameron. Seizures likely metabolic related. Dr. Cameron. IV Keppra recommended. VTE: SCD Code: Full Dispo: Social service is exploring disposition LTAC option.
[2023-05-23] MEDS: MICAFUNGIN SODIUM 100 MG in NA CHLORIDE 0.9% 100 ML IV SCH (15:41)
[2023-05-23] MEDS ORDERED: CEFEPIME 1 GM/VIAL ONE (16:30)
[2023-05-23] MEDS ORDERED: Meropenem 1000 MG/VIAL IV ONE (16:34)
[2023-05-23] MEDS: AA 5%/D20W/ELECTROLYTES-TPN 2,000 ML IV SCH (17:37)
--- NOTE | 2023-05-23 17:49 | PN ---
Date of Progress Note: 05/23/2023 Subjective: Patient was admitted to the hospital with perforated viscus. Patient had acute kidney injury with anasarca. Patient did not require any renal replacement therapy response to diuresis. Currently, off diuresis. Patient developed again GI bleed, treated conservatively. Physical Examination: Vital Signs: Blood pressure 156/91, pulse of 107. Chest: Decreased entry bilateral base. Heart: S1, S2. Regular. Abdomen: Mild tenderness. No guarding or rebound. Extremities: Trace edema. Neuro: Alert. Sleepy. No focality. Laboratory Data: Hemoglobin 7.9. Sodium 138, potassium 4.1, bicarb 24, BUN 28, creatinine 0.5, calcium 7.9. Current Medications: The patient is on include: 1. Meropenem. 2. Micafungin. 3. Vancomycin. 4. Tylenol. 5. Lorazepam. 6. Keppra. 7. Pantoprazole. 8. KCl. Assessment And Plan: 1. Acute kidney injury secondary to prerenal toxic acute tubular necrosis, poor perfusion, acute tubular necrosis, recovered, resolved. Currently, normal volume. Keep holding diuresis. 2. Hypertension, controlled, optimal with the presence of active gastrointestinal bleed. Hold all blood pressure medication. 3. Anasarca secondary to fluid resuscitation, recovered, resolved, diuresing well. Currently off any diuresis. We will monitor. 4. Gastrointestinal bleed as by GI and Surgery. 5. Perforated viscus. Follow up with Surgery. time spend exam the patient face to face reviewing data lab and radiology placing order , discussing with the patient , discussing with the wallpaper remover steam including hospitalist and nursing staff >35 min NATALIIA Voice ID: [id number] Report ID: [id number] ELENI
[2023-05-23 18:38] LABS: Hematocrit 22.9 % (36.0-45.0)
[2023-05-23] MEDS: VANCOMYCIN 1.5 GM in Dextrose 5%-Water 500 ML IVPB SCH (20:46)
[2023-05-24] MEDS: MEROPENEM IV SCH ×2 (00:20→09:14)
[2023-05-24] MEDS: D5W IV SCH ×2 (00:20→09:14)
[2023-05-24] MEDS: PANTOPRAZOLE INJ 80 MG in D5W 250 ML IV SCH ×3 (00:20→20:40)
[2023-05-24] MEDS ORDERED: D5W 100 ML IV ONE (00:31)
[2023-05-24] MEDS ORDERED: Meropenem 1000 MG/VIAL IV ONE (00:32)
[2023-05-24] MEDS: LORazepam 2 MG/ML VIAL IV PRN ×2 (02:00→21:18)
[2023-05-24] MEDS: HYDROMORPHONE HCL 2 MG/ML inj IV PRN (04:05)
[2023-05-24 05:17] LABS: Absolute Lymphocytes (CBC) 0.8 K/uL (0.7-4.9); Hematocrit 22.6 % (36.0-45.0); Lymphocytes % 7.8 % (15.3-44.8); MCV 94.5 fL (80-100); MPV 9.9 fL (7.6-11.3); Platelets 258 thou/uL (152-406); RBC Red Blood Cell Count 2.39 M/uL (3.86-4.86)
[2023-05-24 05:24] LABS: Albumin 1.6 g/dL (3.4-5.0); Bilirubin Total 0.7 mg/dL (0.2-1.0); Potassium 4.1 mEq/L (3.5-5.1); Protein, Total 5.6 g/dL (6.4-8.2)
--- NOTE | 2023-05-24 07:50 | P.PN ---
Date of Service: 05/24/23 Chief Complaint: Respiratory failure Subjective: Patient seen and examined at bedside. ROS unable to obtain at this time. In no apparent distress. Patient's mother in room. Plan of care discussed with patient's mother at bedside. Physical Examination Temp Pulse Resp BP Pulse Ox 97.7 F 94 H 15 124/67 99 05/24/23 04:00 05/24/23 06:00 05/24/23 06:00 05/24/23 06:00 05/24/23 06:00 General: Restless, not oriented, not following commands. HEENT: Atraumatic, Normocephalic. NG tube. Respiratory: Diminished at bases. + Rhonchi. On 3L nasal cannula. Cardiovascular: Tachycardic. Trace BLE edema. Gastrointestinal: Abdominal surgical incision sites with ARMIN drain x 3. Integumentary: Abdominal surgical incision sites dressing clean dry and intact. ARMIN drain x3. Urinary: Carl catheter Laboratory Data - Reviewed Microbiology Data - Reviewed Imagings Data: - CT abdomen pelvis 05/18: ": Bibasilar lung consolidations are present posteriorly which may represent infiltrate or atelectasis. There is no evidence of intra- abdominal or intrapelvic abscess collection. Small moderate left inguinal hernia containing nonobstructed small bowel." - XR Chest 05/23: "Patchy bibasilar opacities, left greater than right (atelectasis and/or infiltrate)." - CT head spine wo contrast 05/23: "No acute intracranial or extra-axial abnormality. 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 Foster on 05/05. - Blood cultures 05/05: No growth to date - Repeat blood culture 05/11: No growth 24 hours - Urine culture 05/06: No growth to date - Pus drainage from midline abdominal incision site by Dr. Foster at bedside 05/13 - CT abdomen pelvis 05/18: ": Bibasilar lung consolidations are present posteriorly which may represent infiltrate or atelectasis. There is no evidence of intra- abdominal or intrapelvic abscess collection. Small moderate left inguinal hernia containing nonobstructed small bowel." - Fluconazole started 05/11 due to high risk/concern for superimposed fungal infection, patient also on TPN. -> Switched to Micafungin on 05/20 Acute Hypoxic Respiratory Failure - pulmonology following - sputum culture 05/11: Pseudomonoas aeruginosa - Treated with Meropenem IV. - Extubated 05/21 - XR Chest 05/23: "Patchy bibasilar opacities, left greater than right (atelectasis and/or infiltrate)." Current Anti-Infective Agents - Meropenem (05/06-) - Vancomycin (05/06-05/16) (05/19-) - Micafungin (05/20-) 05/18: Patient developed fevers up to 104.8 F on 05/18. Blood cultures obtained 05/18, no growth to date. Urinalysis not suggestive of UTI. Negative covid and negative influenza A&B. 05/23: patient had seizure in the morning. Started on keppra. Leukocytosis resolved (WBC 10.10) Remains afebrile Recommendations - Continue with Meropenem, Vancomycin and Micafungin. Will reevaluate on a daily basis. - Abdominal surgical site wound care per surgery team - Monitor WBC and fever trends - Pressure offloading measures. Turn patient q2h, wedge pillow, low air-loss mattress. Apply barrier cream to sacrum/buttocks - Aspiration precautions - Seizure precautions Case discussed with Bam Kaye
[2023-05-24] MEDS ORDERED: NA CHLORIDE 0.9% 100 ML ONE ×3 (09:38→20:50)
[2023-05-24] MEDS ORDERED: levETIRAcetam 250 MG in NA CHLORIDE 0.9% 100 ML IV SCH (11:00)
--- NOTE | 2023-05-24 11:03 | P.PN ---
Subjective Date of Service: 05/24/23 Chief Complaint: Upper GI bleeding Patient has been somnolent since she had a seizure yesterday morning. NG tube outputs- brown colored, no fresh blood. She is tolerating 3 L oxygen by nasal cannula with SaO2 of 100% She is persistently tachycardic. Physical Examination - Vital Signs Temperature: 97.7 F Blood Pressure: 124/67 Pulse: 94 Respirations: 15 Pulse Ox (%): 99 Assessment And Plan - Plan Physical exam GEN: Somnolent, does not follow commands. HEENT: NG tube CV: Regular rate and rhythm, bilateral upper and lower extremity edema improved. Pulm: Bilateral crackles. Adequate breath sounds bilaterally. ABD: [address], J tube in place, abd soft, dressings CDI Neuro: Somnolent, moves all extremities. 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 S/P EGD 05/05 with large clot in gastric pouch and fresh blood in esophagus, injected with epi in surrounding area. NG tube draining brown-colored fluid Dr. Foster is following. J-tube Feeding discontinued due to leak. Dr. Foster is considering removing the J-tube GI, General Surgery are following. Continue TPN at the current rate. Total 7 units PRBC transfused. Supplemental oxygen as needed. Fever No clear source of infection new fevers 05/17 Blood cultures: No growth. CT 05/18 with no obvious infectious findings-atelectasis vs infiltrate Leukocytosis improved No more fevers over several days Continue empiric IV antibiotics/antifungals Infectious disease following Acute hypoxic respiratory failure/acute lung injury Patient extubated to oxygen by nasal cannula 05/21 Pulmonolgy is following. Sputum culture grew Pseudomonas. Patient treated with Merrem. Acetaminophen toxicity Patient completed acetylcysteine IV infusion for APAP toxicity. Monitor LFTs Acute kidney injury secondary to acute blood loss anemia, hypotension/prerenal state JERI resolved. Nephrology is following. Continue TPN. Monitor renal function. Monitor and optimize electrolytes. Hypoglycemia Continue TPN Fingerstick glucose monitoring. Malnutrition/hypoalbuminemia TPN Albumin as needed Anasarca Improved. Intermittent Lasix and albumin as needed. Thrombocytopenia Resolved. Peripheral blood smear was not informative. Discontinue Lovenox given drop in hemoglobin. Bipolar disorder/depression/anxiety Hold oral meds given n.p.o. status. Seizures Case discussed with neurology Dr. Cameron. Seizures likely metabolic related. Dr. Cameron. IV Keppra recommended. Patient placed on IV Keppra to 50 mg twice daily. Neurology consult. VTE: SCD Code: Full Dispo: Social service is exploring disposition LTAC option.
[2023-05-24] MEDS ORDERED: levETIRAcetam 250 MG in NA CHLORIDE 0.9% 100 ML IV ONE (12:00)
[2023-05-24] MEDS ORDERED: LEVETIRACETAM 500 MG/5 ML VIAL IV ONE ×2 (12:30→20:50)
[2023-05-24] MEDS: MICAFUNGIN SODIUM 100 MG in NA CHLORIDE 0.9% 100 ML IV SCH (13:52)
--- NOTE | 2023-05-24 13:57 | P.PN ---
Subjective Date of Service: 05/23/23 Chief Complaint: Upper GI bleeding, Perforated gastric ulcer, emergent laparotomy Subjective: Improving Review of Systems is unable to be obtained Physical Examination - Vital Signs Temperature: 97.7 F Blood Pressure: 124/67 Pulse: 94 Respirations: 15 Pulse Ox (%): 99 - Physical Exam General: Alert, In no apparent distress HEENT: PERRLA, EOMI Neck: Supple Respiratory: Clear to auscultation bilaterally Gastrointestinal: Hypoactive, No rebound, No guarding, Other (incision intact no cellulitis, ) Integumentary: No rashes Assessment And Plan - Plan NGT.ARMIN drain monitoring. We finally identify her bariatric surgeon and we will initiated contact for further instructions and future treatment. Protronix DVT prophyl cont TPN.
[2023-05-24] MEDS: LABETALOL 20 MG/4ML SYRINGE IV PRN ×2 (14:12→20:40)
[2023-05-24 15:29] LABS: Hematocrit 22.4 % (36.0-45.0)
--- NOTE | 2023-05-24 16:40 | PN ---
Date of Progress Note: 05/24/2023 Diagnosis: A gastric perforation with gastrointestinal bleed, emergent laparotomy. Patient is doing better. Now, we are in the stage of extubation. We cannot use a GI tract. There i s no real connection to the esophagus, the stomach. The abdomen is soft and depressible. Incisions are intact, but now to move forward, we are trying to reach once again her bariatric surgeon that mayela collins we get name for it. I appreciate the hospital administration and the ROAD INSPECTOR who just provided us w ith the phone number. I approached them today. I called the office and even left a message with the recycling assistant and what we need from Dr. Immanuel Villatoro is some instructions and some direction and ab out the next planned surgery and we can approach the optimum status for that surgery. In the meantim e, she is bound by TPN. We cannot use the feeding tube at this moment. She pulled it by accident an d I believe this moment we cannot use it. TPN will have to suffice in the meantime, and then once th e doctor called me back, we will like to discuss the disposition and plan to once again work towards trying to reconstruct abdomen and create once again a continuation between the proximal and distal GI tract. [email or web address] Voice ID: [id number] Report ID: [id number]
--- NOTE | 2023-05-24 17:25 | P.PN ---
Subjective Date of Service: 05/24/23 Chief Complaint: Upper GI bleeding, Perforated gastric ulcer, emergent laparotomy Subjective: Other (bedridden.) Physical Examination - Vital Signs Temperature: 97.7 F Blood Pressure: 174/89 Pulse: 95 Respirations: 18 Pulse Ox (%): 94 - Physical Exam General: Other (appears as her stated age) HEENT: Atraumatic, Normocephalic Neck: Supple Respiratory: Other (symmetric chest expansion) Cardiovascular: No rubs, No murmurs Gastrointestinal: Soft and benign, No guarding Musculoskeletal: No clubbing Integumentary: No warmth Neurological: Normal tone Urinary: Other (no bladder distention) External genitalia: Deferred Rectal: Deferred Assessment And Plan - Plan 1. Acute kidney injury secondary to poor perfusion ATN, toxic ATN. SCr improved to 0.4. On TPN. Off tube feed. Monitor renal panel. 2. Hypokalemia, hypomagnesemia, hypophosphatemia. Replete prn. 3. Hypernatremia. Improved. IV hydration & TPN as above. 4. Gastric pouch perforation, status post surgery. Per Gen Surg service. 5. Acute respiratory failure. Per ICU team 6. Anemia. pRBC transf prn for Hgb < 7.0. No indication for DAMON.
[2023-05-24] MEDS: AA 5%/D20W/ELECTROLYTES-TPN 2,000 ML, Lipids 20% 250 ML with MULTIVITAMINS INJ 10 ML IV SCH ×3 (18:59)
[2023-05-24] MEDS: VANCOMYCIN 1.5 GM in Dextrose 5%-Water 500 ML IVPB SCH (20:39)
[2023-05-24] MEDS: levETIRAcetam 500 MG in NA CHLORIDE 0.9% 100 ML IV SCH (20:40)
[2023-05-25] MEDS: LORazepam 2 MG/ML VIAL IV PRN ×2 (00:15→02:45)
[2023-05-25] MEDS ORDERED: HYDRALAZINE HCL 20 MG/ML VIAL IV ONE (00:17)
[2023-05-25] MEDS ORDERED: HYDRALAZINE HCL 20 MG/ML VIAL ONE (00:48)
[2023-05-25] MEDS: LABETALOL 20 MG/4ML SYRINGE IV PRN (02:45)
[2023-05-25 05:12] LABS: Hematocrit 21.8 % (36.0-45.0); MCV 92.4 fL (80-100); MPV 9.7 fL (7.6-11.3); Platelets 347 thou/uL (152-406); RBC Red Blood Cell Count 2.36 M/uL (3.86-4.86)
[2023-05-25 05:36] LABS: Potassium 3.6 mEq/L (3.5-5.1)
[2023-05-25 05:58] LABS: Anisocytosis 1+; Blood Morphology Comment NOTED (NOT SEEN); Platelet Estimate ADEQ; Polychromasia 1+; White Blood Cell Scan OK (OK)
[2023-05-25] MEDS ORDERED: KCL 20 MEQ/100 mL IVPB 20 MEQ/100 ML BAG IV SCH (06:00)
[2023-05-25] MEDS: levETIRAcetam 500 MG in NA CHLORIDE 0.9% 100 ML IV SCH ×2 (08:27→21:22)
[2023-05-25] MEDS: PANTOPRAZOLE INJ 80 MG in D5W 250 ML IV SCH ×2 (08:27→16:03)
[2023-05-25] MEDS ORDERED: LEVETIRACETAM 500 MG/5 ML VIAL IV ONE ×2 (08:38→21:22)
[2023-05-25] MEDS ORDERED: NA CHLORIDE 0.9% 100 ML ONE ×2 (08:38→21:23)
--- NOTE | 2023-05-25 10:20 | RAD REPORT ---
EXAM DESCRIPTION: RAD - Chest Single View - 05/25/2023 9:57 am CLINICAL HISTORY: tachypnea Chest pain. COMPARISON: Chest Single View dated 05/23/2023; Chest Single View dated 05/21/2023; Chest Single Vie w dated 05/18/2023; Chest Single View dated 05/16/2023; Chest Single View dated 05/15/2023 FINDINGS: Portable technique limits examination quality. Mild interstitial pulmonary edema. The heart is mildly prominent size. No displaced fractures.Left-si ded venous catheter tip in the SVC. Enteric tube descends into the stomach. IMPRESSION: Stable chest since 05/23/2023 prior study.
[2023-05-25] MEDS ORDERED: FUROSEMIDE 40 MG/4 ML VIAL IV ONE (10:27)
[2023-05-25 10:29] LABS: Arterial Blood Carboxyhemoglob 1.7 % (0-1.5); Blood Gas Oxyhemoglobin 84.7 % (94-97); Blood O2 Saturation 87.5 % (92-98.5)
[2023-05-25] MEDS: HYDROMORPHONE HCL 2 MG/ML inj IV PRN ×2 (10:32→18:12)
[2023-05-25] MEDS ORDERED: HYDROMORPHONE HCL 2 MG/ML inj ONE (10:44)
--- NOTE | 2023-05-25 10:54 | P.PN ---
Subjective Date of Service: 05/25/23 Chief Complaint: Respiratory failure Patient developed respiratory distress today became more tachypneic bleeding Review of Systems Respiratory: Shortness of Breath Physical Examination - Vital Signs Temperature: 97.7 F Blood Pressure: 163/89 Pulse: 76 Respirations: 20 Pulse Ox (%): 98 - Physical Exam General: Alert, Moderate distress Respiratory: Clear to auscultation bilaterally, Diminished Cardiovascular: Regular rate/rhythm, Normal S1 S2, Edema Gastrointestinal: Hypoactive, Non-distended Assessment And Plan - Current Problems (Diagnosis) (1) Respiratory failure Current Visit: Yes Status: Acute Plan: She developed respiratory distress has respiratory alkalosis x-ray is clear high risk for thromboembolism check CT pulmonary angiogram anticoagulation contraindicated she will consider an IVC filter if patient has pulmonary embolism Dopplers of lower extremity globin is stable pressure is little elevated add some Lasix may have an element of volume overload and is currently on high flow Qualifiers: Chronicity: acute (2) Fever Current Visit: Yes Status: Resolved Plan: Afebrile for the past 24 hours cultures negative so far Qualifiers: Encounter type: subsequent encounter (3) Upper GI bleed Current Visit: Yes Status: Acute Plan: Continue to monitor H&H and is on pantoprazole IV drip
[2023-05-25] MEDS ORDERED: LABETALOL 20 MG/4ML SYRINGE IV PRN (11:46)
--- NOTE | 2023-05-25 12:48 | RAD REPORT ---
EXAM DESCRIPTION: CT - Chest Angio - 05/25/2023 12:39 pm CLINICAL HISTORY: Chest pain. pulmonary embolism acute distress COMPARISON: Chest Abd Pelvis Wo Con dated 05/05/2023; Head C Spine Mpr Wo Con dated 05/23/2023 TECHNIQUE: CT angiogram of the pulmonary arteries was performed with MIP. All CT scans are performed using dose optimization technique as appropriate and may include automated exposure control or mA/KV adjustment according to patient size. FINDINGS: No evidence of pulmonary thromboembolism. No acute aortic finding demonstrated. Mild to moderate airspace opacity in both lung bases, greater on the right likely atelectasis. Enteri c tube tip is in the stomach. No significant pericardial or pleural fluid. No concerning bony finding. IMPRESSION: No evidence of pulmonary thromboembolism. Bibasilar lung opacities are present, greater on the right. These are favored to represent atelectasi s, although infiltrate/ pneumonia is also possible.
[2023-05-25] MEDS: MICAFUNGIN SODIUM 100 MG in NA CHLORIDE 0.9% 100 ML IV SCH (13:40)
--- NOTE | 2023-05-25 13:54 | P.PN ---
Subjective Date of Service: 05/25/23 Chief Complaint: Respiratory failure Patient remains somnolent. No more seizures. NG tube outputs- brown colored, no fresh blood. To remain hypoxic on room air She has been hypertensive. Physical Examination - Vital Signs Temperature: 97.7 F Blood Pressure: 137/81 Pulse: 89 Respirations: 18 Pulse Ox (%): 98 Assessment And Plan - Plan Physical exam GEN: Somnolent, does not follow commands. HEENT: NG tube with dark-colored output. CV: Regular rhythm, tachycardic, bilateral upper and lower extremity edema improved. Pulm: Bilateral crackles. Adequate breath sounds bilaterally. ABD: [address], J tube in place, abd soft, dressings CDI Neuro: Somnolent, moves all extremities. 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 Meropenem discontinued. Continue vancomycin and micafungin. S/P EGD 05/05 with large clot in gastric pouch and fresh blood in esophagus, injected with epi in surrounding area. NG tube draining brown-colored fluid Dr. Foster is following. J-tube Feeding discontinued due to leak. GI, General Surgery are following. Continue TPN at the current rate. Total 7 units PRBC transfused. Supplemental oxygen as needed. Fever No clear source of infection new fevers 05/17 Blood cultures: No growth. CT 05/18 with no obvious infectious findings-atelectasis vs infiltrate Leukocytosis improved No more fevers over several days Continue empiric IV vancomycin/antifungals Infectious disease following Acute hypoxic respiratory failure/acute lung injury Patient extubated to oxygen by nasal cannula 05/21 Pulmonolgy is following. Patient is still hypoxic on room air. Sputum culture grew Pseudomonas. Patient treated with Merrem. Acetaminophen toxicity Patient completed acetylcysteine IV infusion for APAP toxicity. Monitor LFTs Acute kidney injury secondary to acute blood loss anemia, hypotension/prerenal state JERI resolved. Nephrology is following. Continue TPN. Monitor renal function. Monitor and optimize electrolytes. Hypoglycemia Continue TPN Fingerstick glucose monitoring. Malnutrition/hypoalbuminemia TPN Albumin as needed Anasarca Improved. Intermittent Lasix and albumin as needed. Thrombocytopenia Resolved. Peripheral blood smear was not informative. Discontinue Lovenox given drop in hemoglobin. Bipolar disorder/depression/anxiety Hold oral meds given n.p.o. status. Seizures/metabolic encephalopathy Case discussed with neurology Dr. Cameron. Seizures likely metabolic related per Dr. Cameron. IV Keppra recommended. Patient placed on IV Keppra 500 mg twice daily. Patient is somnolent suspected to be related to hypoxic encephalopathy. Neurology consulted. VTE: SCD Code: Full Dispo: Social service is exploring disposition LTAC option.
--- NOTE | 2023-05-25 14:06 | P.PN ---
Subjective Date of Service: 05/25/23 Chief Complaint: Respiratory failure Subjective pt admitted with Respiratory failure upper GI bleeding/s/p perforation required surgery Toaday No overnight events lasix prn Cont TTPN Physical exam General: open eyes, on oxygem HEENT: Atraumatic, Normocephalic Neck: Supple, no elevated JVD Respiratory: CTAB Cardiovascular: No rubs, No murmurs Gastrointestinal: sot, multiple drainage tubes, wound dressed Ext : trace edema A/P # Acute kidney injury resolved Renal dose meds avoid NSAID #. Hypokalemia, hypomagnesemia, hypophosphatemia. Replete prn. #. Hypernatremia resolved Cont TPN at current rate #. Gastric pouch perforation, status post surgery. Surgery following #Acuet respiratory failure Extubated on High flow O2 Pulmonary following Physical Examination - Vital Signs Temperature: 97.7 F Blood Pressure: 137/81 Pulse: 89 Respirations: 18 Pulse Ox (%): 98
[2023-05-25] MEDS: AA 5%/D20W/ELECTROLYTES-TPN 2,000 ML IV SCH (16:03)
--- NOTE | 2023-05-25 20:35 | P.PN ---
Date of Service: 05/23/23 05/23/23 0039 Responded to rapid response on ICU patient in ED bed. Patient noted to have generalized tonic-clonic seizure, teeth clenched down on y[place]ke[place] while RT was suctioning. Per primary RN Sarai, no hx of seizures. Orders for 2 mg ativan, after ativan seizure ceased. Additional orders for stat CTH, CXR, CBC, BMP and 1g Keppra. Hospitalist Dr. Covington updated on clinical change and intervention.
[2023-05-25] MEDS: VANCOMYCIN 1.5 GM in Dextrose 5%-Water 500 ML IVPB SCH (21:23)
[2023-05-26] MEDS: HYDROMORPHONE HCL 2 MG/ML inj IV PRN ×3 (05:06→20:27)
[2023-05-26] MEDS: PANTOPRAZOLE INJ 80 MG in D5W 250 ML IV SCH ×2 (05:06→13:29)
[2023-05-26] MEDS: levETIRAcetam 500 MG in NA CHLORIDE 0.9% 100 ML IV SCH ×2 (08:48→20:27)
[2023-05-26] MEDS ORDERED: NA CHLORIDE 0.9% 100 ML ONE ×2 (08:58→20:21)
[2023-05-26] MEDS ORDERED: LEVETIRACETAM 500 MG/5 ML VIAL IV ONE ×2 (08:58→20:21)
--- NOTE | 2023-05-26 11:55 | P.PN ---
Subjective Date of Service: 05/26/23 Chief Complaint: Respiratory failure Patient is doing much better today more alert responsive cooperative having a conversation look in any distress no further bleeding episodes noted no fever Review of Systems 10-point ROS is otherwise unremarkable General: Weakness Respiratory: Shortness of Breath Physical Examination - Vital Signs Temperature: 97 F Blood Pressure: 138/83 Pulse: 84 Respirations: 15 Pulse Ox (%): 97 - Physical Exam General: Alert, Oriented x3, Mild distress Respiratory: Clear to auscultation bilaterally Cardiovascular: Regular rate/rhythm, Normal S1 S2, Edema Gastrointestinal: Normal bowel sounds, Soft and benign Assessment And Plan - Current Problems (Diagnosis) (1) Respiratory failure Current Visit: Yes Status: Acute Plan: Patient has improved significantly today she is more alert responsive still on high flow nasal cannula reduces the work of her breathing globin is stable around 7.5 no fever since she was started on micafungin currently also on vancomycin White count is normal scheduled dose of low-dose Lasix patient is on TPN Qualifiers: Chronicity: acute (2) Upper GI bleed Current Visit: Yes Status: Acute Plan: Currently stable seems like his bleeding has stopped. With Protonix drip
[2023-05-26] MEDS: FUROSEMIDE 20 MG/ 2ML VIAL IV SCH ×2 (12:24→16:49)
[2023-05-26] MEDS ORDERED: FUROSEMIDE 20 MG/ 2ML VIAL ONE (12:38)
--- NOTE | 2023-05-26 12:51 | P.PN ---
Subjective Date of Service: 05/26/23 Chief Complaint: Respiratory failure Patient is more awake today. Currently on high flow oxygen. No seizures. NG tube outputs- brown colored, no fresh blood. Blood pressure readings are better today. Physical Examination - Vital Signs Temperature: 97.2 F Blood Pressure: 118/84 Pulse: 89 Respirations: 17 Pulse Ox (%): 97 Assessment And Plan - Plan Physical exam GEN: Awake and confused, sick looking. HEENT: NG tube with dark-colored output. CV: Regular rhythm, tachycardic, bilateral upper and lower extremity edema improved. Pulm: Bilateral crackles. Adequate breath sounds bilaterally. ABD: [address], J tube in place, abd soft, dressings CDI Neuro: Awake, confused, moves all extremities. 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 Meropenem discontinued. Continue vancomycin and micafungin. S/P EGD 05/05 with large clot in gastric pouch and fresh blood in esophagus, injected with epi in surrounding area. NG tube draining brown-colored fluid Dr. Foster is following. J-tube Feeding discontinued due to leak. GI, General Surgery are following. Continue TPN at the current rate. Total 7 units PRBC transfused. Fever No clear source of infection No more fever. Blood cultures: No growth. CT 05/18 with no obvious infectious findings-atelectasis vs infiltrate Leukocytosis improved No more fevers over several days Continue empiric IV vancomycin/antifungals Infectious disease following Acute hypoxic respiratory failure/acute lung injury Patient extubated to oxygen by nasal cannula 05/21 Pulmonolgy is following. Patient is still hypoxic on room air. Currently on high flow oxygen. Sputum culture grew Pseudomonas. Patient treated with Merrem. Acetaminophen toxicity Patient completed acetylcysteine IV infusion for APAP toxicity. Resolved. Acute kidney injury secondary to acute blood loss anemia, hypotension/prerenal state JERI resolved. Nephrology is following. Continue TPN. Monitor renal function. Monitor and optimize electrolytes. Hypoglycemia Continue TPN Fingerstick glucose monitoring. Malnutrition/hypoalbuminemia TPN Anasarca Improved. Intermittent Lasix and albumin as needed. Thrombocytopenia Resolved. Peripheral blood smear was not informative. No anticoagulation given intermittent anemia requiring blood transfusions. Bipolar disorder/depression/anxiety Hold oral meds given n.p.o. status. Seizures/metabolic encephalopathy Case discussed with neurology Dr. Cameron. Seizures likely metabolic related per Dr. Cameron. IV Keppra recommended. Patient placed on IV Keppra 500 mg twice daily. Suspected hypoxic encephalopathy. Patient is more awake but confused. Neurology consulted. VTE: SCD Code: Full Dispo: Social service is exploring disposition LTAC option.
--- NOTE | 2023-05-26 13:19 | P.PN ---
Subjective Date of Service: 05/26/23 Chief Complaint: Respiratory failure Subjective pt admitted with Respiratory failure upper GI bleeding/s/p perforation required surgery Toaday No overnight events Alert today Cont TTPN Cont lasix Physical exam General: open eyes, on oxygen HEENT: Atraumatic, Normocephalic Neck: Supple, no elevated JVD Respiratory: CTAB Cardiovascular: No rubs, No murmurs Gastrointestinal: sot, multiple drainage tubes, wound dressed Ext : trace edema A/P # Acute kidney injury resolved Renal dose meds avoid NSAID #. Hypokalemia, hypomagnesemia, hypophosphatemia. Replete prn. #. Mild Hyponatremia resolved Cont TPN at current rate Cont lasix #. Gastric pouch perforation, status post surgery. Surgery following #Acuet respiratory failure Extubated on High flow O2 Pulmonary following Physical Examination - Vital Signs Temperature: 97.2 F Blood Pressure: 145/101 Pulse: 106 Respirations: 18 Pulse Ox (%): 96
[2023-05-26] MEDS: MICAFUNGIN SODIUM 100 MG in NA CHLORIDE 0.9% 100 ML IV SCH (13:29)
[2023-05-26] MEDS: AA 5%/D20W/ELECTROLYTES-TPN 2,000 ML IV SCH (16:49)
[2023-05-26] MEDS: VANCOMYCIN 1.5 GM in Dextrose 5%-Water 500 ML IVPB SCH (20:27)
[2023-05-27] MEDS: PANTOPRAZOLE INJ 80 MG in D5W 250 ML IV SCH ×3 (00:43→18:40)
[2023-05-27] MEDS: HYDROMORPHONE HCL 2 MG/ML inj IV PRN ×2 (03:35→19:31)
[2023-05-27 05:16] LABS: Absolute Lymphocytes (CBC) 0.6 K/uL (0.7-4.9); Hematocrit 22.1 % (36.0-45.0); Lymphocytes % 10.9 % (15.3-44.8); MCV 92.9 fL (80-100); MPV 8.9 fL (7.6-11.3); Platelets 442 thou/uL (152-406); RBC Red Blood Cell Count 2.38 M/uL (3.86-4.86)
[2023-05-27 05:36] LABS: Albumin 1.6 g/dL (3.4-5.0); Bilirubin Total 0.7 mg/dL (0.2-1.0); Phosphorus 3.8 mg/dL (2.5-4.9); Potassium 3.6 mEq/L (3.5-5.1); Protein, Total 6.6 g/dL (6.4-8.2)
[2023-05-27] MEDS ORDERED: KCL 20 MEQ/100 mL IVPB 20 MEQ/100 ML BAG IV ONE (06:00)
[2023-05-27] MEDS ORDERED: KCL 20 MEQ/100 mL IVPB 100 ML IV ONE (06:14)
--- NOTE | 2023-05-27 08:38 | P.PN ---
Date of Service: 05/27/23 Chief Complaint: Respiratory failure Subjective: Patient seen and examined at bedside. In no apparent distress. Oriented x 1-2. Physical Examination Temp Pulse Resp BP Pulse Ox 97 F 78 12 144/78 H 98 05/27/23 12:06 05/27/23 12:06 05/27/23 12:06 05/27/23 12:06 05/27/23 12:06 General: In no apparent distress. Oriented x1-2 HEENT: Atraumatic, Normocephalic. NG tube. Respiratory: Diminished at bases. + mild rhonchi upper lung mccoy. On high flow nasal cannula. Cardiovascular: Tachycardic. Trace BLE edema. Gastrointestinal: Abdominal surgical incision sites with ARMIN drains x 3. Integumentary: Abdominal surgical incision sites dressing clean dry and intact. ARMIN drain x3. Urinary: Carl catheter Laboratory Data - Reviewed Microbiology Data - Reviewed Imagings Data: - CT abdomen pelvis 05/18: ": Bibasilar lung consolidations are present posteriorly which may represent infiltrate or atelectasis. There is no evidence of intra- abdominal or intrapelvic abscess collection. Small moderate left inguinal hernia containing nonobstructed small bowel." - XR Chest 05/23: "Patchy bibasilar opacities, left greater than right (atelectasis and/or infiltrate)." - CT head spine wo contrast 05/23: "No acute intracranial or extra-axial abnormality. 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 Foster on 05/05. - Blood cultures 05/05: No growth to date - Repeat blood culture 05/11: No growth 24 hours - Urine culture 05/06: No growth to date - Pus drainage from midline abdominal incision site by Dr. Foster at bedside 05/13 - CT abdomen pelvis 05/18: ": Bibasilar lung consolidations are present posteriorly which may represent infiltrate or atelectasis. There is no evidence of intra- abdominal or intrapelvic abscess collection. Small moderate left inguinal hernia containing nonobstructed small bowel." - Fluconazole started 05/11 due to high risk/concern for superimposed fungal infection, patient also on TPN. -> Switched to Micafungin on 05/20 Acute Hypoxic Respiratory Failure - pulmonology following - sputum culture 05/11: Pseudomonoas aeruginosa - Treated with Meropenem IV. - Extubated 05/21 - XR Chest 05/23: "Patchy bibasilar opacities, left greater than right (atelectasis and/or infiltrate)." Anti-Infective Agents - Vancomycin (05/06-05/16) (05/19-) - Micafungin (05/20-) - Previously on Meropenem (05/06-05/24) 05/18: Patient developed fevers up to 104.8 F on 05/18. Blood cultures obtained 05/18, no growth to date. Urinalysis not suggestive of UTI. Negative covid and negative influenza A&B. 05/23: patient had seizure in the morning. Started on keppra. Leukocytosis resolved Remains afebrile Recommendations - Continue with Micafungin and Vancomycin for now. Will reevaluate on daily basis. - Abdominal surgical site wound care per surgery team - Monitor WBC and fever trends - Pressure offloading measures. Turn patient q2h, wedge pillow, low air-loss mattress. Apply barrier cream to sacrum/buttocks - Aspiration precautions - Seizure precautions Case discussed with Bam Kaye
[2023-05-27] MEDS: FUROSEMIDE 20 MG/ 2ML VIAL IV SCH ×2 (08:52→16:59)
[2023-05-27] MEDS: levETIRAcetam 500 MG in NA CHLORIDE 0.9% 100 ML IV SCH ×2 (08:53→21:10)
[2023-05-27] MEDS ORDERED: LEVETIRACETAM 500 MG/5 ML VIAL IV ONE ×2 (09:05→21:22)
[2023-05-27] MEDS ORDERED: D5W 0 ML IV ONE (09:06)
[2023-05-27] MEDS ORDERED: NA CHLORIDE 0.9% 100 ML ONE ×2 (09:09→21:22)
--- NOTE | 2023-05-27 12:06 | P.PN ---
Subjective Date of Service: 05/27/23 Chief Complaint: Respiratory failure Patient's condition is steadily improving further bleeding of fever she is alert and responsive Review of Systems is unable to be obtained Physical Examination - Vital Signs Temperature: 97 F Blood Pressure: 144/78 Pulse: 78 Respirations: 12 Pulse Ox (%): 98 - Physical Exam General: Alert, Oriented x2 Respiratory: Clear to auscultation bilaterally Cardiovascular: No edema, Normal S1 S2 Gastrointestinal: Hypoactive Assessment And Plan - Current Problems (Diagnosis) (1) Respiratory failure Current Visit: Yes Status: Acute Plan: Plan to wean off the oxygen use bedside incentive spirometry side physical therapy await headrest Qualifiers: Chronicity: acute (2) Upper GI bleed Current Visit: Yes Status: Acute Plan: Patient is stable hemoglobin stable no further GI bleed according to Dr. Foster need to continue with TPN for 6-month candidate for revision surgery
[2023-05-27] MEDS: MICAFUNGIN SODIUM 100 MG in NA CHLORIDE 0.9% 100 ML IV SCH (14:16)
--- NOTE | 2023-05-27 15:19 | P.PN ---
Subjective Date of Service: 05/27/23 Chief Complaint: Respiratory failure Patient is awake and interactive but confused. She remain on high flow oxygen. No seizures. NG tube outputs- brown colored, no fresh blood. Physical Examination - Vital Signs Temperature: 97 F Blood Pressure: 144/78 Pulse: 78 Respirations: 12 Pulse Ox (%): 98 Assessment And Plan - Plan Physical exam GEN: Awake and confused, sick looking. HEENT: NG tube with dark-colored output. CV: Regular rhythm, tachycardic, bilateral upper and lower extremity edema improved. Pulm: Bilateral crackles. Adequate breath sounds bilaterally. ABD: [address], J tube in place-nonfunctional(dislodged), abd soft, dressings CDI Neuro: Awake, confused, moves all extremities. 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 Meropenem discontinued. She is on vancomycin and micafungin. S/P EGD 05/05 with large clot in gastric pouch and fresh blood in esophagus, injected with epi in surrounding area. NG tube draining brown-colored fluid Dr. Foster is following. Dr. Foster is trying to reach patient's bariatic surgeon to discuss options of surgery for feeding. J-tube Feeding discontinued due to leak. GI, General Surgery are following. Continue TPN at the current rate. Total 7 units PRBC transfused. Fever No clear source of infection No more fever. Blood cultures: No growth. CT 05/18 with no obvious infectious findings-atelectasis vs infiltrate Leukocytosis improved No more fevers over several days Continue empiric IV vancomycin/antifungals Infectious disease following Acute hypoxic respiratory failure/acute lung injury Patient extubated to oxygen by nasal cannula 05/21 Pulmonolgy is following. Patient is still hypoxic on room air and currently on high flow oxygen. Sputum culture grew Pseudomonas. Patient completed treatment with Merrem. Acetaminophen toxicity Patient completed acetylcysteine IV infusion for APAP toxicity. Resolved. Acute kidney injury secondary to acute blood loss anemia, hypotension/prerenal state JERI resolved. Nephrology is following. Continue TPN. Monitor renal function. Monitor and optimize electrolytes. Hypoglycemia Continue TPN Fingerstick glucose monitoring. Malnutrition/hypoalbuminemia TPN Anasarca Improved. Intermittent Lasix and albumin as needed. Thrombocytopenia Resolved. Peripheral blood smear was not informative. No anticoagulation given intermittent anemia requiring blood transfusions. Bipolar disorder/depression/anxiety Hold oral meds given n.p.o. status. Seizures/metabolic encephalopathy Case discussed with neurology Dr. Cameron. Seizures likely metabolic related per Dr. Cameron. IV Keppra recommended. Patient placed on IV Keppra 500 mg twice daily. Suspected hypoxic encephalopathy. Patient is more awake but confused. Neurology consulted. VTE: SCD Code: Full Dispo: Social service is exploring disposition LTAC option.
[2023-05-27] MEDS ORDERED: FUROSEMIDE 20 MG/ 2ML VIAL ONE (16:49)
[2023-05-27] MEDS: AA 5%/D20W/ELECTROLYTES-TPN 2,000 ML, Lipids 20% 250 ML with MULTIVITAMINS INJ 10 ML IV SCH ×3 (16:59)
[2023-05-27] MEDS ORDERED: HYDROMORPHONE HCL 2 MG/ML inj ONE (19:43)
[2023-05-27] MEDS: VANCOMYCIN 1.5 GM in Dextrose 5%-Water 500 ML IVPB SCH (21:10)
--- NOTE | 2023-05-28 03:26 | PN ---
Date of Progress Note: 05/27/2023 Chief Complaint: Respiratory failure. Subjective: Patient remains in ICU. She has respiratory failure, she was extubated. After GI bleed ing with perforation and required surgery patient was intubated for respiratory failure with hypoxemi a. The patient has oliguria and acute kidney injury. She did not require dialysis. Renal function has improved. Patient is on TPN. Currently, she has NG tube and TPN is adjusted to control electrol ytes, hypernatremia resolved. Review of Systems: The patient remains confused, cannot provide review of systems. Physical Examination: Lungs: A few rhonchi. Heart: S1, S2. Abdomen: Soft. Extremities: No edema. Impression And Plan: 1.Acute kidney injury, resolved. Avoid nonsteroidal antiinflammatory medication. Hypokalemia, hypo magnesemia, hypophosphatemia. Continue TPN. 2.Mild hyponatremia, resolved. Continue TPN with current rate. Continue Lasix as needed for volume control. 3.Gastric pouch perforation status post surgery. Surgery is following the patient. ALLA/MODAby Voice ID: [id number] Report ID: [id number]
[2023-05-28] MEDS: PANTOPRAZOLE INJ 80 MG in D5W 250 ML IV SCH ×2 (04:44→14:29)
[2023-05-28 06:08] LABS: Absolute Lymphocytes (CBC) 0.7 K/uL (0.7-4.9); Hematocrit 22.1 % (36.0-45.0); MCV 91.7 fL (80-100); MPV 8.7 fL (7.6-11.3); Platelets 465 thou/uL (152-406); RBC Red Blood Cell Count 2.41 M/uL (3.86-4.86)
[2023-05-28 06:18] LABS: Potassium 3.7 mEq/L (3.5-5.1)
[2023-05-28 06:40] LABS: Albumin 1.7 g/dL (3.4-5.0); Bilirubin Direct 0.4 mg/dL (0-0.2); Bilirubin Indirect, Calculated 0.2 mg/dL (0.2-0.8); Bilirubin Total 0.6 mg/dL (0.2-1.0); Protein, Total 6.6 g/dL (6.4-8.2)
[2023-05-28] MEDS ORDERED: KCL 20 MEQ/100 mL IVPB 100 ML IV ONE (06:54)
[2023-05-28] MEDS ORDERED: KCL 20 MEQ/100 mL IVPB 20 MEQ/100 ML BAG IV ONE (07:00)
[2023-05-28 07:27] LABS: Blood Morphology Comment NOTED (NOT SEEN); Platelet Estimate ADEQ; White Blood Cell Scan OK (OK)
[2023-05-28 07:28] LABS: Anisocytosis 1+; Macrocytosis SLIGHT
--- NOTE | 2023-05-28 08:18 | P.PN ---
Date of Service: 05/28/23 Chief Complaint: Respiratory failure Subjective: No acute events overnight. In no apparent distress. Awake, oriented x1. Physical Examination Temp Pulse Resp BP Pulse Ox 98 F 92 H 18 142/98 H 100 05/28/23 04:00 05/28/23 06:00 05/28/23 06:00 05/28/23 06:00 05/28/23 06:00 General: In no apparent distress. Oriented x1 HEENT: Atraumatic, Normocephalic. NG tube. Respiratory: Diminished at bases. + mild rhonchi upper lung mccoy. On high flow nasal cannula. Cardiovascular: Regular rate/rhythm. Gastrointestinal: Abdominal surgical incision sites with ARMIN drains x 3. Integumentary: Abdominal surgical dressing is clean dry and intact. ARMIN drains with minimal serosanguinous output. Urinary: Carl catheter noted. Laboratory Data - Reviewed Microbiology Data - Reviewed Imagings Data: - CT abdomen pelvis 05/18: ": Bibasilar lung consolidations are present posteriorly which may represent infiltrate or atelectasis. There is no evidence of intra- abdominal or intrapelvic abscess collection. Small moderate left inguinal hernia containing nonobstructed small bowel." - XR Chest 05/23: "Patchy bibasilar opacities, left greater than right (atelectasis and/or infiltrate)." - CT head spine wo contrast 05/23: "No acute intracranial or extra-axial abnormality. 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 Foster on 05/05. - Blood cultures 05/05: No growth to date - Repeat blood culture 05/11: No growth 24 hours - Urine culture 05/06: No growth to date - Pus drainage from midline abdominal incision site by Dr. Foster at bedside 05/13 - CT abdomen pelvis 05/18: ": Bibasilar lung consolidations are present posteriorly which may represent infiltrate or atelectasis. There is no evidence of intra- abdominal or intrapelvic abscess collection. Small moderate left inguinal hernia containing nonobstructed small bowel." - Fluconazole started 05/11 due to high risk/concern for superimposed fungal infection, patient also on TPN. -> Switched to Micafungin on 05/20 Acute Hypoxic Respiratory Failure - pulmonology following - sputum culture 05/11: Pseudomonoas aeruginosa - Treated with Meropenem IV. - Extubated 05/21 - XR Chest 05/23: "Patchy bibasilar opacities, left greater than right (atelectasis and/or infiltrate)." Anti-Infective Agents - Vancomycin (05/06-05/16) (05/19-) - Micafungin (05/20-) day 9 - Previously on Meropenem (05/06-05/24) 05/18: Patient developed fevers up to 104.8 F on 05/18. Blood cultures obtained 05/18, no growth to date. Urinalysis not suggestive of UTI. Negative covid and negative influenza A&B. 05/23: patient had seizure in the morning. Started on keppra. Leukocytosis resolved Remains afebrile Recommendations - Continue with Micafungin and Vancomycin for now. Will reevaluate on daily basis. - Abdominal surgical site wound care per surgery team - Monitor WBC and fever trends - Pressure offloading measures. Turn patient q2h, wedge pillow, low air-loss mattress. Apply barrier cream to sacrum/buttocks - Aspiration precautions - Seizure precautions Case discussed with Bam Kaye
[2023-05-28] MEDS: levETIRAcetam 500 MG in NA CHLORIDE 0.9% 100 ML IV SCH ×2 (10:00→20:47)
[2023-05-28] MEDS: FUROSEMIDE 20 MG/ 2ML VIAL IV SCH ×2 (10:00→17:13)
--- NOTE | 2023-05-28 10:00 | P.PN ---
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 S/P repair 05/05 Acute blood loss anemia secondary to above Hypovolemic shock secondary to GI bleed Acute hypoxic respiratory failure Acetaminophen toxicity Acute kidney injury secondary to acute blood loss anemia, hypotension/prerenal state Fever Hypoglycemia Malnutrition/hypoalbuminemia Bipolar disorder/depression/anxiety 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 Acute blood loss anemia secondary to upper GI bleed Hypovolemic shock secondary to GI bleed S/P Ex lap-small bowel laura limb repair, repair of gastric pouch 05/05 Now with 3 ARMIN drains, J tube in place-mild leaking from J-tube Fever on 05/17-repeat blood cultures-no growth, CT 05/18 with no obvious infectious findings-atelectasis vs infiltrate She is on vancomycin and micafungin. S/P EGD 05/05 with large clot in gastric pouch and fresh blood in esophagus, injected with epi in surrounding area. NG tube draining brown-colored fluid Dr. Foster is following. Dr. Foster is trying to reach patient's bariatic surgeon to discuss options of surgery for feeding. J-tube Feeding discontinued due to leak. GI, General Surgery are following. Continue TPN at the current rate. Total 7 units PRBC transfused. Fever No clear source of infection No more fever. Blood cultures: No growth. CT 05/18 with no obvious infectious findings-atelectasis vs infiltrate Anti-Infective Agents - Vancomycin (05/06-05/16) (05/19-) - Micafungin (05/20-) - Previously on Meropenem (05/06-05/24) - Continue with Micafungin and Vancomycin for now. Will reevaluate on daily basis. Acute hypoxic respiratory failure/acute lung injury Patient extubated to oxygen by nasal cannula 05/21 Pulmonolgy is following. Patient is still hypoxic on room air and currently on high flow oxygen 15L 25% Sputum culture grew Pseudomonas. Patient completed treatment with Merrem. Acetaminophen toxicity Patient completed acetylcysteine IV infusion for APAP toxicity. Resolved. Acute kidney injury secondary to acute blood loss anemia, hypotension/prerenal state JERI resolved. Nephrology is following. Continue TPN. Monitor renal function. Monitor and optimize electrolytes. Hypoglycemia Continue TPN Fingerstick glucose monitoring. Malnutrition/hypoalbuminemia TPN Anasarca Improved. Intermittent Lasix and albumin as needed. Thrombocytopenia Resolved. Peripheral blood smear was not informative. No anticoagulation given intermittent anemia requiring blood transfusions. Bipolar disorder/depression/anxiety Hold oral meds given n.p.o. status. Seizures/metabolic encephalopathy Case discussed with neurology Dr. Cameron. Seizures likely metabolic related per Dr. Cameron. IV Keppra recommended. Patient placed on IV Keppra 500 mg twice daily. No further seizures thus far Suspected hypoxic encephalopathy. Patient is more awake but confused. Neurology consulted. VTE: SCD Code: Full Dispo: Social service is exploring disposition LTAC option. VTE: Code: Dispo: Time Spent Managing Pts Care (In Minutes): 35 <Genaro Yepez - Last Filed: 05/28/23 09:54> Patient seen and examined on rounds this morning. Plan of care discussed with GLASS BLOCK INSTALLER Lucho. Agree with plan as noted above with the following additions/corrections: awake, follows basic commands. confused. states she's in a hospital, unsure on what year continues on TPN no acute events overnight continues to be very weak NGT in place Dr. Foster reached out to bariatric surgeon, awaiting response patient's mother updated at bedside <Bharath Gaffney - Last Filed: 05/28/23 20:48>
[2023-05-28] MEDS ORDERED: FUROSEMIDE 20 MG/ 2ML VIAL ONE ×2 (10:02→17:26)
[2023-05-28] MEDS ORDERED: LEVETIRACETAM 500 MG/5 ML VIAL IV ONE ×2 (10:11→20:56)
[2023-05-28] MEDS ORDERED: NA CHLORIDE 0.9% 100 ML ONE ×2 (10:11→20:55)
[2023-05-28] MEDS: MICAFUNGIN SODIUM 100 MG in NA CHLORIDE 0.9% 100 ML IV SCH (14:29)
--- NOTE | 2023-05-28 15:44 | PN ---
Date of Progress Note: 05/28/2023 Subjective: Patient was admitted to the hospital with perforated viscus. Patient had upper GI bleed . Patient had respiratory failure, acute kidney injury with anasarca. Patient was diuresed, did not require any renal replacement therapy. Objective: Vital Signs: Blood pressure 134/84, pulse of 97, afebrile. The patient had good urine o utput of 2400. The patient had even balance. Chest: Clear to auscultation. Heart: S1, S2. Regular. Abdomen: Soft, nontender. Dressing clean. Extremities: Trace edema. Neuro: Opens eyes spontaneously. No focality. Does not look oriented. Laboratory Data: Hemoglobin 7.6. Sodium 135, potassium 3.7, bicarb 28, BUN 26, creatinine 0.5, calc ium 8.5. Current Medications: Patient is on include: 1.Vancomycin. 2.Micafungin. 3.Hydralazine. 4.Keppra. 5.Lasix 20 b.i.d. 6.Zofran. 7.Pantoprazole. 8.KCl. Assessment And Plan: 1.Acute kidney injury secondary to poor perfusion acute tubular necrosis, toxic acute tubular necros is. Used to be overvolume, currently normal volume. Continue current diuresis dose. 2.Hypertension, controlled optimal. Continue current treatment. We will utilize blood pressure for more diuresis. 3.Anemia secondary to gastrointestinal bleed. P.r.n. transfusion. Continue proton pump inhibitor. 4.Perforated viscus with sepsis. Continue current antibiotic, dose appropriate. Follow up with GI and Surgery. NATALIIA Voice ID: [id number] Report ID: [id number]
[2023-05-28] MEDS: AA 5%/D20W/ELECTROLYTES-TPN 2,000 ML IV SCH (17:10)
[2023-05-28] MEDS: VANCOMYCIN 1.5 GM in Dextrose 5%-Water 500 ML IVPB SCH (21:25)
[2023-05-29] MEDS: PANTOPRAZOLE INJ 80 MG in D5W 250 ML IV SCH ×2 (03:00→13:57)
[2023-05-29 04:55] LABS: Hematocrit 23.7 % (36.0-45.0); MCV 91.5 fL (80-100); MPV 8.4 fL (7.6-11.3); Platelets 499 thou/uL (152-406); RBC Red Blood Cell Count 2.59 M/uL (3.86-4.86)
[2023-05-29 05:00] LABS: Potassium 3.5 mEq/L (3.5-5.1)
[2023-05-29 05:08] LABS: Bilirubin Total 0.7 mg/dL (0.2-1.0); Protein, Total 7.5 g/dL (6.4-8.2)
[2023-05-29 06:24] LABS: Phosphorus 4.5 mg/dL (2.5-4.9)
--- NOTE | 2023-05-29 08:41 | P.PN ---
Date of Service: 05/29/23 Subjective: Awake-confused Oriented x1 Able to name mother, follows simple commands Denies complaints On nasal cannula today 4L ROS: 10 point ROS as noted above, otherwise negative Physical exam GEN: Alert,confused, NAD HEENT: Normal conjunctiva, sclera anicteric CV: Regular rate and rhythm, no edema Pulm: Nonlabored respirations on nasal cannula 4L ABD: Soft, nontender, nondistended, ARMIN drain in place x3-small amt serosanguinous drainage , NGT in place LIWS MSK: No joint tenderness Integumentary: No rashes Neuro: Normal speech, normal affect Vitals reviewed Problem List 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 S/P repair 05/05 Acute blood loss anemia secondary to above Hypovolemic shock secondary to GI bleed Acute hypoxic respiratory failure Acetaminophen toxicity Acute kidney injury secondary to acute blood loss anemia, hypotension/prerenal state Fever Hypoglycemia Malnutrition/hypoalbuminemia Bipolar disorder/depression/anxiety 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 Acute blood loss anemia secondary to upper GI bleed Hypovolemic shock secondary to GI bleed S/P Ex lap-small bowel laura limb repair, repair of gastric pouch 05/05 Now with 3 ARMIN drains, J tube in place-mild leaking from J-tube Fever on 05/17-repeat blood cultures-no growth, CT 05/18 with no obvious infectious findings-atelectasis vs infiltrate She is on vancomycin and micafungin. S/P EGD 05/05 with large clot in gastric pouch and fresh blood in esophagus, injected with epi in surrounding area. NG tube draining brown-colored fluid Dr. Foster is following. Dr. Foster is trying to reach patient's bariatic surgeon to discuss options of surgery for feeding. J-tube Feeding discontinued due to leak. GI, General Surgery are following. Continue TPN at the current rate. Total 7 units PRBC transfused. Back on continuous PPI IV after episode of GI bleeding last week Fever No clear source of infection No more fever. Blood cultures: No growth. CT 05/18 with no obvious infectious findings-atelectasis vs infiltrate Anti-Infective Agents - Vancomycin (05/06-05/16) (05/19-) - Micafungin (05/20-) - Previously on Meropenem (05/06-05/24) - Continue with Micafungin and Vancomycin for now. Will reevaluate on daily basis. Acute hypoxic respiratory failure/acute lung injury Patient extubated to oxygen by nasal cannula 05/21 Pulmonolgy is following. Patient is still hypoxic on room air and currently on NC 4L Sputum culture grew Pseudomonas. Patient completed treatment with Merrem. Acetaminophen toxicity Patient completed acetylcysteine IV infusion for APAP toxicity. Resolved. Acute kidney injury secondary to acute blood loss anemia, hypotension/prerenal state JERI resolved. Nephrology is following. Continue TPN. Monitor renal function. Monitor and optimize electrolytes. Hypoglycemia Continue TPN Fingerstick glucose monitoring. Malnutrition/hypoalbuminemia TPN Anasarca Improved. Intermittent Lasix and albumin as needed. Thrombocytopenia Resolved. Peripheral blood smear was not informative. No anticoagulation given intermittent anemia requiring blood transfusions. Bipolar disorder/depression/anxiety Hold oral meds given n.p.o. status. Seizures/metabolic encephalopathy Case discussed with neurology Dr. Cameron. Seizures likely metabolic related per Dr. Cameron. IV Keppra recommended. Patient placed on IV Keppra 500 mg twice daily. No further seizures thus far Suspected hypoxic encephalopathy. Patient is more awake but confused. Neurology consulted. VTE: SCD Code: Full Dispo: Social service is exploring disposition LTAC option. Time Spent Managing Pts Care (In Minutes): 35 <Genaro Yepez - Last Filed: 05/29/23 08:39> Patient seen and examined on rounds this morning. Plan of care discussed with PA[employer] HAT LINING Lucho. Agree with plan as noted above with the following additions/corrections: Patient continues with some confusion, does not recall anything from this hospitalization She is able to tell me her and her 's name correctly only oriented to herself No acute events overnight Carl discontinued yesterday, urinating without issue Remains afebrile <Bharath Gaffney - Last Filed: 05/29/23 18:18>
--- NOTE | 2023-05-29 08:52 | P.PN ---
Date of Service: 05/29/23 Chief Complaint: Respiratory failure Subjective: No acute events overnight. In no apparent distress. Oriented x1. No new or worsening complaints. Physical Examination Temp Pulse Resp BP Pulse Ox 97.5 F 88 22 H 157/87 H 100 05/29/23 08:00 05/29/23 08:00 05/29/23 08:00 05/29/23 08:00 05/29/23 08:00 General: In no apparent distress. Oriented x1, confused. HEENT: Atraumatic, Normocephalic. NG tube. Respiratory: Diminished at bases. + mild rhonchi upper lung mccoy. On 4L nasal cannula. Cardiovascular: Regular rate/rhythm. Gastrointestinal: Abdominal surgical incision sites with ARMIN drains x 3. Integumentary: Abdominal surgical dressing is clean dry and intact. ARMIN drains w ith minimal serosanguinous output. Urinary: Carl catheter noted. Laboratory Data - Reviewed Microbiology Data - Reviewed Imagings Data: - CT abdomen pelvis 05/18: ": Bibasilar lung consolidations are present posteriorly which may represent infiltrate or atelectasis. There is no evidence of intra- abdominal or intrapelvic abscess collection. Small moderate left inguinal hernia containing nonobstructed small bowel." - XR Chest 05/23: "Patchy bibasilar opacities, left greater than right ( atelectasis and/or infiltrate)." - CT head spine wo contrast 05/23: "No acute intracranial or extra-axial abnormality. 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 Foster on 05/05. - Blood cultures 05/05: No growth to date - Repeat blood culture 05/11: No growth 24 hours - Urine culture 05/06: No growth to date - Pus drainage from midline abdominal incision site by Dr. Foster at bedside 05/13 - CT abdomen pelvis 05/18: ": Bibasilar lung consolidations are present posteriorly which may represent infiltrate or atelectasis. There is no evidence of intra- abdominal or intrapelvic abscess collection. Small moderate left inguinal hernia containing nonobstructed small bowel." - Fluconazole started 05/11 due to high risk/concern for superimposed fungal infection, patient also on TPN. -> Switched to Micafungin on 05/20 Acute Hypoxic Respiratory Failure - resolved - pulmonology following - sputum culture 05/11: Pseudomonoas aeruginosa - Treated with Meropenem IV. - Extubated 05/21 - XR Chest 05/23: "Patchy bibasilar opacities, left greater than right (atelectasis and/or infiltrate)." Anti-Infective Agents - Vancomycin (05/06-05/16) (05/19-) - Micafungin (05/20-) day 10 - Previously on Meropenem (05/06-05/24) 05/18: Patient developed fevers up to 104.8 F on 05/18. Blood cultures obtained 05/18, no growth to date. Urinalysis not suggestive of UTI. Negative covid and negative influenza A&B. 05/23: patient had seizure in the morning. Started on keppra. Leukocytosis resolved Remains afebrile Recommendations - Continue with Micafungin x 14 days (05/20-06/02) - Continue Vancomycin x 14 days. - Abdominal surgical site wound care per surgery team - Monitor WBC and fever trends - Pressure offloading measures. Turn patient q2h, wedge pillow, low air-loss mattress. Apply barrier cream to sacrum/buttocks - Aspiration precautions - Seizure precautions Case discussed with Bam Kaye
[2023-05-29] MEDS: FUROSEMIDE 20 MG/ 2ML VIAL IV SCH ×2 (09:19→17:17)
[2023-05-29] MEDS: levETIRAcetam 500 MG in NA CHLORIDE 0.9% 100 ML IV SCH ×2 (09:19→19:46)
[2023-05-29] MEDS ORDERED: FUROSEMIDE 20 MG/ 2ML VIAL ONE ×2 (09:28→17:31)
[2023-05-29] MEDS ORDERED: LEVETIRACETAM 500 MG/5 ML VIAL IV ONE ×2 (09:28→19:58)
[2023-05-29] MEDS ORDERED: NA CHLORIDE 0.9% 100 ML ONE ×2 (09:29→19:57)
--- NOTE | 2023-05-29 11:58 | PN ---
Date of Progress Note: 05/29/2023 Subjective: The patient is doing better. The patient is stable hemodynamically. The patient was ad mitted with perforated viscus and GI bleed, septic shock, respiratory failure, intubated. The patien t had anasarca with acute kidney injury secondary to toxic ATN, poor perfusion ATN. The patient did not require any renal replacement therapy in response to diuresis. Objective: Vital Signs: Blood pressure 157/86, pulse of 88, afebrile. Chest: Clear to auscultation. Heart: S1, S2 regular. Abdomen: PEG tube drainage. Soft, nontender. Extremities: Trace edema. Neuro: Open eyes spontaneously, confused. Laboratory Data: Hemoglobin 8.3. Sodium 131, potassium 3.5, bicarb 28, BUN 27, creatinine 0.5, calc ium 8.8, phos 4.5, albumin of 2, corrected calcium is 10.4. Current Medications: The patient is on include; 1.Vancomycin. 2.Micafungin. 3.Labetalol. 4.Tylenol. 5.Keppra. 6.Lasix 20 b.i.d. 7.TPN. 8.Pantoprazole. Assessment And Plan: 1.Acute kidney injury secondary to toxic ATN, poor perfusion ATN with anasarca, recovered, resolved. Looked to me euvolemic. I am going to repeat chest x-ray for better evaluation of her fluid status with the presence of hyponatremia. I going to go ahead and increase her sodium level in the TPN to 90 and we will follow up the patient. 2.Hyponatremia, mostly dilutional. Adjust the sodium in the TPN and I am going to decrease Lasix to once a day. 3.Hypercalcemia, decrease calcium on the TPN. 4.Anemia of chronic kidney disease, stable. 5.Hypokalemia. We will supplement. 6.Perforated viscus. Follow up with Surgery. NATALIIA Voice ID: [id number] Report ID: [id number]
--- NOTE | 2023-05-29 12:05 | RAD REPORT ---
EXAM DESCRIPTION: RADChest Single View05/29/2023 11:40 am CLINICAL HISTORY: COPD COMPARISON: Chest Single View dated 05/25/2023; Chest Single View dated 05/23/2023; Chest Single View dated 05/21/2023; Chest Single View dated 05/18/2023 TECHNIQUE: Portable AP view of the chest. FINDINGS: Left IJ CVC and enteric tube are stable in position. The lungs are clear, with decreased i nspiratory effort somewhat limiting evaluation. Mild central interstitial prominence, stable. No pne umothorax or effusion. The cardiomediastinal contours are unremarkable. IMPRESSION: Mild central interstitial prominence, may in part relate to decreased inspiratory effort . No other acute cardiopulmonary process.
[2023-05-29] MEDS: MICAFUNGIN SODIUM 100 MG in NA CHLORIDE 0.9% 100 ML IV SCH (13:57)
[2023-05-29] MEDS ORDERED: CALCIUM CHLORIDE IV SCH ×8 (17:00)
[2023-05-29] MEDS ORDERED: [UNRECOGNIZED DRUG - OTHER] IV SCH ×8 (17:00)
[2023-05-29] MEDS ORDERED: AMINO ACIDS IV SCH ×8 (17:00)
[2023-05-29] MEDS ORDERED: DEXTROSE IV SCH ×8 (17:00)
[2023-05-29] MEDS ORDERED: LIPIDS IV SCH ×8 (17:00)
[2023-05-29] MEDS: HYDROMORPHONE HCL 2 MG/ML inj IV PRN (19:45)
[2023-05-29] MEDS: VANCOMYCIN 1.5 GM in Dextrose 5%-Water 500 ML IVPB SCH (19:47)
[2023-05-29] MEDS ORDERED: METOPROLOL TARTRATE 5 MG/5 ML INJ IV STA (21:03)
[2023-05-29] MEDS ORDERED: FUROSEMIDE 40 MG/4 ML VIAL IV ONE (21:39)
[2023-05-29] MEDS ORDERED: METHYLPREDNISOLONE 125 MG INJ IV ONE (21:39)
[2023-05-29] MEDS ORDERED: NA CHLORIDE 0.9% 1,000 ML IV ONE (21:55)
[2023-05-29] MEDS: NOREPINEPHRINE 4 MG in D5W 250 ML IV SCH (21:55)
--- NOTE | 2023-05-29 21:56 | RAD REPORT ---
EXAM DESCRIPTION: RAD - Chest Single View - 05/29/2023 9:42 pm CLINICAL HISTORY: Cough Chest pain. COMPARISON: <Comparisons> FINDINGS: Portable technique limits examination quality. The lungs are grossly clear. The heart is normal in size. No displaced fractures.Left-sided venous ca theter has tip in the SVC. Enteric tube descends into the upper abdomen.
[2023-05-29 21:59] LABS: Lymphocytes % 15.3 % (15.3-44.8); MCV 95.3 fL (80-100); MPV 8.6 fL (7.6-11.3); Platelets 894 thou/uL (152-406); RBC Red Blood Cell Count 2.62 M/uL (3.86-4.86)
--- NOTE | 2023-05-29 22:00 | RAD REPORT ---
EXAM DESCRIPTION: RAD - Abdomen 1 View (KUB) - 05/29/2023 9:42 pm CLINICAL HISTORY: SOB/ Abdominal discomfort Pain COMPARISON: Abdomen 1 View (KUB) dated 05/06/2023 FINDINGS: Tip of the enteric tube is in the stomach. Skin tory are noted along the midline. Sever al drainage catheters are seen. Mildly prominent central small bowel loops identified.
[2023-05-29] MEDS ORDERED: NOREPINEPHRINE BITARTRATE/D5W 4 MG/250 ML BAG IV ONE (22:05)
[2023-05-29] MEDS ORDERED: NA CHLORIDE 0.9% 1,000 ML ONE (22:05)
[2023-05-29] MEDS ORDERED: propofoL 500 MG/50 ML ML IV PRN (22:12)
--- NOTE | 2023-05-29 22:14 | RAD REPORT ---
EXAM DESCRIPTION: RAD - Chest Single View - 05/29/2023 10:07 pm CLINICAL HISTORY: Cough Chest pain. COMPARISON: Abdomen 1 View (KUB) dated 05/29/2023; Chest Single View dated 05/29/2023; Chest Single Vi ew dated 05/29/2023; Chest Single View dated 05/25/2023 FINDINGS: Portable technique limits examination quality. Tip of the endotracheal tube is above the meg, at the level of the mid aortic arch. Left-sided shy ous catheter has tip in the SVC. Enteric tube tip is in the stomach.
[2023-05-29 22:15] LABS: Magnesium 2.3 mg/dL (1.6-2.4); Phosphorus 5.8 mg/dL (2.5-4.9)
--- NOTE | 2023-05-29 22:16 | P.PN ---
Date of Service: 05/29/23 Patient response patient has hypoxic episodes and tachycardia associated with hypotension X-ray chest and KUB were obtained We will get stat labs Patient was desatting in spite of even high flow Decided to intubate the patient Appreciate help from ER doctor Status postintubation Obtained an x-ray chest Noted to have bleeding NG tube We will obtain CBC CMP Patient was hypotensive to 45 / 31 Give a bolus of normal saline Started on Levophed
[2023-05-29] MEDS ORDERED: RSI MEDICATION KIT IV ONE (23:32)
[2023-05-29] MEDS ORDERED: METHYLPREDNISOLONE 125 MG INJ ONE (23:45)
[2023-05-30] MEDS: NOREPINEPHRINE 4 MG in D5W 250 ML IV SCH (01:18)
[2023-05-30] MEDS: PANTOPRAZOLE INJ 80 MG in D5W 250 ML IV SCH ×3 (01:23→23:20)
[2023-05-30] MEDS ORDERED: NOREPINEPHRINE BITARTRATE/D5W 4 MG/250 ML BAG IV ONE (01:30)
[2023-05-30] MEDS ORDERED: propofoL 1,000 MG/100 ML VIAL IV SCH (03:00)
[2023-05-30] MEDS: ALBUTEROL 2.5 MG/3 ML NEB SOL NEB SCH ×5 (03:19→16:00)
[2023-05-30] MEDS: IPRATROPIUM BROM 0.5MG/2.5ML NEB SCH ×7 (03:19→23:40)
[2023-05-30] MEDS ORDERED: MIDAZOLAM HCL 2 MG/2 ML INJ ONE (03:25)
[2023-05-30 05:33] LABS: Hematocrit 22.5 % (36.0-45.0); MCV 93.5 fL (80-100); MPV 8.2 fL (7.6-11.3); Platelets 666 thou/uL (152-406)
[2023-05-30] MEDS: MIDAZOLAM HCL 2 MG/2 ML INJ IV PRN (05:38)
[2023-05-30 05:55] LABS: Bilirubin Total 0.9 mg/dL (0.2-1.0); Potassium 4.8 mEq/L (3.5-5.1); Protein, Total 7.1 g/dL (6.4-8.2)
[2023-05-30] MEDS ORDERED: DEXMEDETOMIDINE HCL 200 MCG in NA CHLORIDE 0.9% 98 ML IV SCH (07:00)
--- NOTE | 2023-05-30 08:39 | P.PN ---
Date of Service: 05/30/23 Chief Complaint: Respiratory failure Subjective: Overnight, patient became hypoxic, hypotensive and tachycardic. Intubated 05/29 Concern for PE; CTA chest pending - XR Chest 05/29: "The lungs are grossly clear. The heart is normal in size. No displaced fractures.Left-sided venous catheter has tip in the SVC. Enteric tube descends into the upper abdomen." - XR KUB 05/29: ": Tip of the enteric tube is in the stomach. Skin tory are noted along the midline. Several drainage catheters are seen. Mildly prominent central small bowel loops identified." Physical Examination Temp Pulse Resp BP Pulse Ox 97.0 F 117 H 33 H 117/86 100 05/30/23 04:00 05/30/23 06:00 05/30/23 06:00 05/30/23 06:00 05/30/23 06:00 General: Intubated and sedated. HEENT: Atraumatic, Normocephalic. NG tube. Respiratory: Intubated. Mechanically ventilated. Cardiovascular: Tachycardic. No lower extremity edema. Gastrointestinal: Abdominal surgical incision sites with ARMIN drains x 3. Integumentary: Abdominal surgical dressing is clean dry and intact. ARMIN drains with minimal serosanguinous output. Urinary: Carl catheter with dark yellow urine. Laboratory Data - Reviewed Microbiology Data - Reviewed Imagings Data: - CT abdomen pelvis 05/18: ": Bibasilar lung consolidations are present posteriorly which may represent infiltrate or atelectasis. There is no evidence of intra- abdominal or intrapelvic abscess collection. Small moderate left inguinal hernia containing nonobstructed small bowel." - XR Chest 05/23: "Patchy bibasilar opacities, left greater than right (atelectasis and/or infiltrate)." - CT head spine wo contrast 05/23: "No acute intracranial or extra-axial abnormality. No acute cervical spine injury." - XR Chest 05/29: "The lungs are grossly clear. The heart is normal in size. No displaced fractures.Left-sided venous catheter has tip in the SVC. Enteric tube descends into the upper abdomen." - XR KUB 05/29: "Tip of the enteric tube is in the stomach. Skin tory are noted along the midline. Several drainage catheters are seen. 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 Foster on 05/05. - Blood cultures 05/05: No growth to date - Repeat blood culture 05/11: No growth 24 hours - Urine culture 05/06: No growth to date - Pus drainage from midline abdominal incision site by Dr. Foster at bedside 05/13 - CT abdomen pelvis 05/18: ": Bibasilar lung consolidations are present posteriorly which may represent infiltrate or atelectasis. There is no evidence of intra- abdominal or intrapelvic abscess collection. Small moderate left inguinal hernia containing nonobstructed small bowel." - Fluconazole started 05/11 due to high risk/concern for superimposed fungal infection, patient also on TPN. -> Switched to Micafungin on 05/20 Acute Hypoxic Respiratory Failure - pulmonology following - sputum culture 05/11: Pseudomonoas aeruginosa - Treated with Meropenem IV. - Extubated 05/21 - XR Chest 05/29: "The lungs are grossly clear. The heart is normal in size. No displaced fractures.Left-sided venous catheter has tip in the SVC. Enteric tube descends into the upper abdomen." - 05/30: Overnight, patient became hypoxic, hypotensive and tachycardic and was subsequently intubated 05/29 - Concern for PE. - CTA chest: pending Anti-Infective Agents - Vancomycin (05/06-05/16) (05/19-) - Micafungin (05/20-) day 11 - Previously on Meropenem (05/06-05/24) 05/18: Patient developed fevers up to 104.8 F on 05/18. Blood cultures obtained 05/18, no growth to date. Urinalysis not suggestive of UTI. Negative covid and negative influenza A&B. 05/23: patient had seizure in the morning. Started on keppra. WBC worsened overnight, now 32.4 Remains afebrile Recommendations - Pending CTA chest and CT abdomen, follow up with results. - Continue with Micafungin x 14 days (05/20-06/02) - Abdominal wound with purulent drainage on 05/19, restarted on Vancomycin 05/19, continue for 14 days. - Abdominal surgical site wound care per surgery team - Monitor WBC and fever trends - Pressure offloading measures. Turn patient q2h, wedge pillow, low air-loss mattress. Apply barrier cream to sacrum/buttocks - Seizure precautions Case discussed with Bam Kaye
[2023-05-30] MEDS: DEXMEDETOMIDINE HCL 1,000 MCG in NA CHLORIDE 0.9% 490 ML IV SCH (08:49)
--- NOTE | 2023-05-30 09:02 | RAD REPORT ---
EXAM DESCRIPTION: CT - Chest For Pe Angio - 05/30/2023 8:32 am CLINICAL HISTORY: Respiratory failure COMPARISON: May 25, 2023 TECHNIQUE: Dynamically enhanced axial 3 mm thick images of the chest were obtained during administra tion of 100 mL Isovue 370 IV contrast. Coronal and oblique reconstruction images were generated and r eviewed. Exam utilizes a protocol for optimal evaluation of pulmonary arterial tree. Maximum intensity projections 3D imaging was utilized All CT scans are performed using dose optimization technique as appropriate and may include automated exposure control or mA/KV adjustment according to patient size. FINDINGS: A pulmonary embolus is not seen. A thoracic aortic aneurysm is not noted. A pleural effusion is not seen. A pericardial effusion is not seen. 6 centimeter rectangular opacity right lower lobe has the appearance of atelectasis. Small area of at electasis left lower lobe. Mild bilateral pulmonary opacities. Lines and tubes in good position Esophageal dilatation IMPRESSION: Negative for a pulmonary embolism. Right lower lobe atelectasis Mild bilateral pulmonary opacities may represent mild interstitial pulmonary edema Esophageal dilatation
--- NOTE | 2023-05-30 09:02 | RAD REPORT ---
EXAM DESCRIPTION: CT - Abdomen Pelvis W Contrast - 05/30/2023 8:32 am CLINICAL HISTORY: Abdominal pain COMPARISON: November 2022 and May 18, 2023 TECHNIQUE: Computed axial tomography of the abdomen pelvis was obtained. 100 cc Isovue-300 was admin istered intravenously. Oral contrast was not requested which limits evaluation of bowel and appendix All CT scans are performed using dose optimization technique as appropriate and may include automated exposure control or mA/KV adjustment according to patient size. FINDINGS: Liver, pancreas, adrenals and kidneys are unremarkable. Stable splenic lesion probably benign. 4 centimeter subcapsular fluid collection probably subacute he matoma mildly diminished in size Percutaneous drain with its tip right upper quadrant. Second the drain with its tip within the pelvis . No significant fluid collection. Carl catheter within the bladder. No evidence of diverticulitis Postsurgical changes involve the stomach IMPRESSION: 4 centimeter subcapsular splenic hematoma mildly diminished in size No acute abnormality is displayed
--- NOTE | 2023-05-30 09:05 | P.PN ---
Date of Service: 05/30/23 Subjective: Decompensated overnight with hypoxia requiring intubation BP low overnight after intubation requiring levophed briefly Now on vent, no pressors, eyes open spontaneously Dark blood noted in NGT to LIWS ROS: 10 point ROS as noted above, otherwise negative Physical exam GEN: awake, opens eyes, tracking HEENT: Normal conjunctiva, sclera anicteric CV: Regular rate and rhythm, no edema Pulm: tachypnea, on vent ABD: Soft, nontender, nondistended, ARMIN drain in place x3-small amt serosanguinous drainage , NGT in place LIWS MSK: No joint tenderness Integumentary: No rashes Neuro: intubated, on vent, eyes open spontaneously Vitals reviewed Problem List 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 S/P repair 05/05 Acute blood loss anemia secondary to above Hypovolemic shock secondary to GI bleed Acute hypoxic respiratory failure Acetaminophen toxicity Acute kidney injury secondary to acute blood loss anemia, hypotension/prerenal state Fever Hypoglycemia Malnutrition/hypoalbuminemia Bipolar disorder/depression/anxiety 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 Acute blood loss anemia secondary to upper GI bleed Hypovolemic shock secondary to GI bleed S/P Ex lap-small bowel laura limb repair, repair of gastric pouch 05/05 Now with 3 ARMIN drains, J tube in place-mild leaking from J-tube Fever on 05/17-repeat blood cultures-no growth, CT 05/18 with no obvious infectious findings-atelectasis vs infiltrate She is on vancomycin and micafungin. S/P EGD 05/05 with large clot in gastric pouch and fresh blood in esophagus, injected with epi in surrounding area. NG tube draining dark blood 05/30 Dr. Foster is following. Dr. Foster is trying to reach patient's bariatic surgeon to discuss options of surgery J-tube Feeding discontinued due to leak. GI, General Surgery are following. Continue TPN at the current rate. Total 8 units PRBC transfused. HGB 7.2 this am with active bleeding seen in NGT, ordered additional unit PRBC Back on continuous PPI IV after episode of GI bleeding last week CT chest PE and abd pelvis ordered for today Fever No clear source of infection No more fever. Blood cultures: No growth. CT 05/18 with no obvious infectious findings-atelectasis vs infiltrate Anti-Infective Agents - Vancomycin (05/06-05/16) (05/19-) - Micafungin (05/20-) - Previously on Meropenem (05/06-05/24) - Continue with Micafungin and Vancomycin for now. Will reevaluate on daily basis. Acute hypoxic respiratory failure/acute lung injury Patient extubated to oxygen by nasal cannula 05/21 Had to be re intubated overnight 05/29 for hypoxic respiratory failure CTA chest ordered and pending Pulmonolgy is following. Sputum culture grew Pseudomonas. Patient completed treatment with Merrem. Acetaminophen toxicity Patient completed acetylcysteine IV infusion for APAP toxicity. Resolved. Acute kidney injury secondary to acute blood loss anemia, hypotension/prerenal state JERI resolved. Nephrology is following. Continue TPN. Monitor renal function. Monitor and optimize electrolytes. Hypoglycemia Continue TPN Fingerstick glucose monitoring. Malnutrition/hypoalbuminemia TPN Anasarca Improved. Intermittent Lasix and albumin as needed. Thrombocytopenia Resolved. Peripheral blood smear was not informative. No anticoagulation given intermittent anemia requiring blood transfusions. Bipolar disorder/depression/anxiety Hold oral meds given n.p.o. status. Seizures/metabolic encephalopathy Case discussed with neurology Dr. Cameron. Seizures likely metabolic related per Dr. Cameron. IV Keppra recommended. Patient placed on IV Keppra 500 mg twice daily. No further seizures thus far Suspected hypoxic encephalopathy. Neurology consulted. VTE: SCD Code: Full Dispo: Social service is exploring disposition LTAC option. Time Spent Managing Pts Care (In Minutes): 35 <Genaro Yepez - Last Filed: 05/30/23 08:59> date of service: 05/30/23 Patient seen and examined on rounds this morning. Plan of care discussed with GARMENT FITTER Lucho. Agree with plan as noted above with the following additions/corrections: bloody output intubated overnight required pressors concern for PE given not on chemical prophylaxis due to bleed CTA chest done and negative for PE, noted atelectasis no acute intra-abdominal findings per radiology report 1uPRBC ordered updated afternoon 05/30 <Bharath Gaffney - Last Filed: 05/31/23 16:13>
--- NOTE | 2023-05-30 09:13 | P.PN ---
Subjective Date of Service: 05/30/23 Chief Complaint: Respiratory failure Patient's condition deteriorated last night became more tachycardia cardiac tachypneic and was reintubated currently patient is unresponsive was on a propofol drip now changed to Precedex drip still tachypneic Review of Systems is unable to be obtained Physical Examination - Vital Signs Temperature: 97.0 F Blood Pressure: 117/86 Pulse: 117 Respirations: 33 Pulse Ox (%): 100 - Physical Exam General: Unresponsive Respiratory: Clear to auscultation bilaterally Cardiovascular: No edema, Regular rate/rhythm, Normal S1 S2 Gastrointestinal: Hypoactive Assessment And Plan - Current Problems (Diagnosis) (1) Respiratory failure Current Visit: Yes Status: Acute Plan: Patient was reintubated last night Vent changed to pressure control oxygenation satisfactory on low PEEP CT pulmonary angiogram result pending chest some right basilar atelectasis no evidence of pulmonary edema renal function is worsened white count has increased significantly resume meropenem blood cultures stat CT scan reviewed gnosis poor Qualifiers: Chronicity: acute (2) Upper GI bleed Current Visit: Yes Status: Acute Plan: Patient is bleeding again
[2023-05-30] MEDS: FUROSEMIDE 20 MG/ 2ML VIAL IV SCH (09:40)
[2023-05-30] MEDS: levETIRAcetam 500 MG in NA CHLORIDE 0.9% 100 ML IV SCH ×2 (09:40→21:55)
[2023-05-30] MEDS: Meropenem 1,000 MG in NA CHLORIDE 0.9% 100 ML IV SCH ×2 (09:41→17:46)
[2023-05-30] MEDS ORDERED: Meropenem 1000 MG/VIAL IV ONE ×2 (09:48→18:00)
[2023-05-30] MEDS ORDERED: LEVETIRACETAM 500 MG/5 ML VIAL IV ONE ×2 (09:48→23:27)
[2023-05-30] MEDS ORDERED: FUROSEMIDE 20 MG/ 2ML VIAL ONE (09:48)
[2023-05-30] MEDS ORDERED: NA CHLORIDE 0.9% 200 ML ONE (09:49)
[2023-05-30] MEDS: HYDROMORPHONE HCL 2 MG/ML inj IV PRN ×3 (10:40→17:47)
[2023-05-30] MEDS ORDERED: HYDROMORPHONE HCL 2 MG/ML inj ONE ×3 (10:52→17:55)
--- NOTE | 2023-05-30 12:40 | PN ---
Date of Progress Note: 05/30/2023 Subjective: The patient was admitted with perforated viscus. The patient had GI bleed. The patient had acute kidney injury multifactorial secondary to toxic ATN, poor perfusion ATN with anasarca. Th e patient had upper GI bleed. The patient did not require dialysis over the night. The patient had respiratory distress, intubated, has marginal low blood pressure, placed on Levophed and weaned off. The patient found to have undergo CT with contrast to rule out PE, which was negative. The patient continued to have good urine output. The patient had splenic hematoma. Physical Examination: Vital Signs: Blood pressure 120/85, pulse of 118, afebrile. Chest: Clear to auscultation. Heart: S1, S2. Systolic murmur. Tachycardic. Abdomen: Soft, nontender. Extremities: No edema. Neuro: The patient on vent, sedated. Laboratory Data: Hemoglobin 7.2. Sodium 130, potassium 4.8, bicarb 22, BUN 45, creatinine 1.3, calc ium of 8, GFR of 51. Current Medications: The patient is on include: 1.Meropenem. 2.Micafungin. 3.Vancomycin. 4.Metoprolol. 5.Keppra. 6.Lasix. 7.Pantoprazole. Assessment And Plan: 1.Acute kidney injury, currently secondary to contrast, poor perfusion ATN. From the incident yeste rday, I am going to continue to monitor the patient and we will follow up the patient closely. I am going to discontinue the Lasix. 2.Hyponatremia. Hold the Lasix. We just adjusted TPN and we will follow up. 3.Hypokalemia, hypercalcemia. We adjusted her TPN. 4.GI bleed. Continue p.r.n. transfusion. 5.Respiratory failure, possible secondary to ARDS. Hold the Lasix for the time being. We will foll ow up with Pulmonary. LISA/JIMMIE Voice ID: [id number] Report ID: [id number]
--- NOTE | 2023-05-30 13:32 | P.PN ---
Subjective Date of Service: 05/29/23 Chief Complaint: GI bleed, Gastric perforation Subjective: Improving Review of Systems General: Weakness ENT: Unremarkable Respiratory: Shortness of Breath (no) Gastrointestinal: Nausea (no), Vomiting (no) Genitourinary: Dysuria (no) Physical Examination - Vital Signs Temperature: 97.0 F Blood Pressure: 120/85 Pulse: 118 Respirations: 16 Pulse Ox (%): 100 - Physical Exam General: In no apparent distress, Oriented x1, Cooperative HEENT: PERRLA, EOMI Neck: Supple Cardiovascular: Regular rate/rhythm Gastrointestinal: Soft and benign, Other (incision intact, no cellulitis. Feeding tube not in position, Removed intact) Integumentary: No erythema, No warmth, No cyanosis Assessment And Plan - Plan We had a team discussion about disposition options and future surgical plans for reconstruction although no near future plan for that. Protronix DVT prophyl cont TPN.
[2023-05-30] MEDS: MICAFUNGIN SODIUM 100 MG in NA CHLORIDE 0.9% 100 ML IV SCH (13:41)
[2023-05-30] MEDS ORDERED: [UNRECOGNIZED DRUG - OTHER] IV SCH ×14 (17:00)
[2023-05-30] MEDS ORDERED: POTASSIUM CHLORIDE IV SCH ×14 (17:00)
[2023-05-30] MEDS ORDERED: CALCIUM CHLORIDE IV SCH ×14 (17:00)
[2023-05-30] MEDS ORDERED: DEXTROSE 20% IV SCH ×14 (17:00)
[2023-05-30] MEDS ORDERED: AMINO ACIDS IV SCH ×14 (17:00)
[2023-05-30 17:02] LABS: Specific Gravity > 1.030 (1.005-1.030); Urine Bacteria <20 /HPF (<20); Urine Bilirubin NEGATIVE (Negative); Urine Blood Negative (Negative); Urine Clarity Turbid (Clear); Urine Color Yellow (Yellow); Urine Glucose NEGATIVE (Negative); Urine Mucus Slight /HPF (None Seen); Urine Protein 1+ (Negative); Urine Urobilinogen Normal (Normal); Urine pH 5.5 (5.0-7.0)
[2023-05-30 17:06] LABS: Hematocrit 25.3 % (36.0-45.0)
[2023-05-30 17:46] LABS: Protime INR 1.13
[2023-05-30] MEDS ORDERED: NA CHLORIDE 0.9% 100 ML ONE ×2 (18:01→23:28)
[2023-05-30] MEDS: VANCOMYCIN 1.5 GM in Dextrose 5%-Water 500 ML IVPB SCH (21:00)
[2023-05-30 23:43] LABS: Arterial Blood Carboxyhemoglob 1.3 % (0-1.5); Blood Gas Oxyhemoglobin 95.2 % (94-97); Blood O2 Saturation 98.2 % (92-98.5)
[2023-05-31] MEDS: HYDROMORPHONE HCL 2 MG/ML inj IV PRN ×6 (00:04→21:05)
[2023-05-31] MEDS ORDERED: HYDROMORPHONE HCL 2 MG/ML inj ONE ×5 (00:17→17:42)
[2023-05-31] MEDS: Meropenem 1,000 MG in NA CHLORIDE 0.9% 100 ML IV SCH ×3 (01:50→16:48)
[2023-05-31] MEDS ORDERED: NA CHLORIDE 0.9% 100 ML ONE ×5 (02:21→23:53)
[2023-05-31] MEDS ORDERED: Meropenem 1000 MG/VIAL IV ONE ×4 (02:21→23:53)
[2023-05-31] MEDS: DEXMEDETOMIDINE HCL 1,000 MCG in NA CHLORIDE 0.9% 490 ML IV SCH ×2 (02:29→19:38)
[2023-05-31] MEDS: IPRATROPIUM BROM 0.5MG/2.5ML NEB SCH (04:00)
--- NOTE | 2023-05-31 04:38 | PN ---
Date of Progress Note: 05/30/2023 Reason For Service: Status post gastric perforation with emergent laparotomy. Subjective: The patient has been doing better. There is the discontinuation of the GI tract for obv ious reasons. The efferent loops of the David-en-Y gastric bypass have to be shut down and defunction alized. The stomach was closed. We have been doing better. We have a recent also Gastrografin stud y that shows the proximal pouch to be with no leakage. She was also extubated and she is talking, bu t last night, the patient has some respiratory distress. The patient was reintubated again. She alw ays have some blood-tinge on the NG tube, but this is not going to the stomach itself because there i s no official stomach there. The ARMIN drains from the rest of the abdomen looks intact with no major b leeding. The incision looks great. Review of Systems: Once again review of systems today cannot be obtained. Physical Examination: Vital Signs: The temperature is 97.1 with respirations 16. Chest: Clear. Abdomen: Soft and depressible. Intact surgical sites. No cellulitis. Intact fascia. Intact incis ion. The ARMIN drains are not putting any blood or any purulent discharge and the jejunostomy tube is n onfunctional and is removed already. Extremities: Good capillary refill. Laboratory Data: Blood work shows a WBC count came from 7 to 32 after the intubation. The CT today shows liver, pancreas, adrenal, and kidneys intact. Drains are intact. There are some findings toda y, about a 4 cm subcapsular hematoma that we did not have before. It apparently has diminished in si ze. Postsurgical changes present. No abscess seen. Plan: I had a long discussion with bariatric surgeon. I had initially initiation of transfer, the f irst time she came, but she was unstable. They could not transfer. So even though we did not have t he David-en-Y gastric bypass in that area. After discussing that with the transfer center, they obviously discussed with me the findings and the inability for her to be transferred, so took h er to surgery, did the surgery that we mentioned in the previous one. She is doing okay, but is stil l few days ago, I contacted the office of her surgeon, who did the David-en-Y gastric bythelma diaz, that will be a surgeon in [place] by the name, Dr. Immanuel Villatoro. I left a message in his off ice too from this and the bilingual medical assistant, but have not been able to get in contact with them. I c ontacted also another bariatric surgeon today. He does not work in this hospital for David-en-Y, but he practice in [employer] and what we trying to do there is trying to get any guidelines on any futur e surgeries in this patient. This patient has a defunctionalized David-en-Y because the efferent limb is shut down. We have no feeding tube when she is TPN-dependent. We explained to that bariatric joiner rgeon our findings and trying to let this buy any opportunities of improvement, but when I discussed the case with the bariatric surgeon, he will not even do anything different. He thinks the surgery w as done the way it should be. He will do it too and at this moment, there is no plan for reconstruct ions of that area any time soon at least on his experience. Medically, she has to improve. She is g oing to be TPN-dependent until the swelling of this proximal pouch is gone completely and then severa l months later, after studies done and the patient medically stable, then they may have to attempt a connection of the distal stomach to the proximal pouch region and once again takedown the David-en-Y a nd make a normal continuation of intestines, that much we have. In that case, I explained that to th e medical doctors. We still have ARMIN drains that they asked me to leave them there, even the NG tube because there is no continuation of the GI tract. So at that moment, when I saw the nasogastric tube , I see about 50 cc of liquid in that area. There is some blood present there, but a 50 cc, half of that is most likely saliva. We did not see any exudate coming out from that NG tube and it is not cl ogged. I do not want to remove the NG tube, especially when I discussed the case with the bariatric surgeon and they asked me to leave the NG tube in place. I understand the situation of this patient and at least from the surgical standpoint, we may not provide any other intervention for this from my limitations as a surgeon, but at the same time, the surgeons in other institutions, as we discover a lso, they will not take a decision at this moment, but I believe that she will be able to have surger y in the future and have this done. So, in the meantime, we have some body that is TPN-dependent, th at need reconditioning and I suggested to hospitalize. I talked to the administration about the impo rtance of an LTAC and long-term facility care, but I believe, due to the financial reasons, that opti on may not be available. They are still looking for some other possibilities. At the same time, I d iscussed with the primary doctors that if we do not have any robotics engineer in the next few weeks rachel chicas he is on vacation, then may consider also taking her to a higher level of care from the medical sta ndpoint since the surgical reconstruction will not be any time soon. I will try to give my support t o surgeon the best I can. I talked to the patient previously. I talked to the parents too about wha t we have done so far and how come we help in the future. At this moment, we will monitor her hemogl obin. We also trying to make sure she has no coagulopathies and make sure she has proper temperature . TABATHA/MODL Voice ID: [id number] Report ID: [id number]
[2023-05-31 06:18] LABS: Hematocrit 19.7 % (36.0-45.0); MCV 94.9 fL (80-100); MPV 8.5 fL (7.6-11.3); Platelets 376 thou/uL (152-406); RBC Red Blood Cell Count 2.08 M/uL (3.86-4.86)
[2023-05-31 06:30] LABS: Albumin 1.7 g/dL (3.4-5.0); Bilirubin Total 0.6 mg/dL (0.2-1.0); Potassium 4.3 mEq/L (3.5-5.1); Protein, Total 6.1 g/dL (6.4-8.2)
[2023-05-31] MEDS ORDERED: NA CHLORIDE 0.9% 250 ML IV SCH (07:00)
--- NOTE | 2023-05-31 07:11 | P.PN ---
Date of Service: 05/31/23 Subjective: continues on vent, opens eyes spontaneously bloody output: ~300 ml emptied from OG suction, ~100 ml drained from NG tube over last ~24 hours +large black unformed stool this am per nurse hgb 6.6 this am no acute events overnight ROS: 10 point ROS unable to be obtained - pt intubated Physical exam: GEN: opens eyes to verbal stimuli, [facility] HEENT: Normal conjunctiva, sclera anicteric CV: Regular rate and rhythm, trace b/l pedal edema Pulm: diminished at bases bilaterally, on [facility]; 40% FIO2 ABD: Soft, nontender, nondistended, ARMIN drain in place x3- with small amt serosanguinous drainage Neuro: intubated, on vent, eyes open spontaneously Carl in place (replaced 05/29) NGT in place LIWS central line Vitals reviewed Problem List 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 S/P repair 05/05 Acute blood loss anemia secondary to above Hypovolemic shock secondary to GI bleed Acute hypoxic respiratory failure/acute lung injury Acetaminophen toxicity JERI secondary to acute blood loss anemia, hypotension/prerenal state Fever Hypoglycemia Malnutrition/hypoalbuminemia Bipolar disorder/depression/anxiety Seizures/metabolic encephalopathy 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 (05/05) Dr. Foster discussed with bariatric surgeons - not much options, need to wait many months before would attempt any further intra-abdominal procedures ARMIN drains still in place with minimal to no output J-tube Feeding discontinued due to leak/ nonfunctioning; suspected pulled out partially while patient was moving around/restless last week NG tube draining dark blood 05/30 She is on vancomycin and micafungin. Continue TPN at the current rate. Total 9 units PRBC transfused. HGB down to 6.6 (05/31) 2 uPRBC ordered Back on continuous PPI IV after episode of GI bleeding last week transition to BID dosing 05/31 CT abd/pelvis (05/30): 4 cm subcapsular splenic hematoma mildly diminished in size Fever; now resolved No clear source of infection. Afebrile for several days now. Blood cx (05/18): No growth; Blood cx (05/30): NGTD Urine cx (05/30): pending CT chest/abd (05/18) with no obvious infectious findings-atelectasis vs infiltrate CTA chest (05/30): with RLL atelectasis, mild b/l pulm opacities, esophageal dilation. no PE Anti-Infective Agents - Meropenem (05/06-05/24) (05/30-) - Vancomycin (05/06-05/16) (05/19-) - Micafungin (05/20-) Continue with Micafungin / Vancomycin for 2 weeks total per ID (05/19-06/02). continue merrem (05/30-), added 05/30 per pulm d/t worsening respiratory failure / leukocytosis (05/30) repeat blood and urine cultures obtained. follow cultures afebrile, leukocytosis improving Acute hypoxic respiratory failure/acute lung injury Patient extubated to oxygen by nasal cannula 05/21 Had to be re intubated overnight 05/29 for hypoxic respiratory failure unclear etiology, atelectasis vs mucous/blood clot plug improving, on 40% fio2 CTA chest (05/30): No PE. RLL atelectasis, Mild bilateral pulmonary opacities, esophageal dilation Pulmonolgy is following. Sputum culture grew Pseudomonas. Patient completed treatment with Merrem. continues on vent Acetaminophen toxicity Patient completed acetylcysteine IV infusion for APAP toxicity. Resolved. JERI secondary to acute blood loss anemia, hypotension/prerenal state JERI resolved. Nephrology is following. Continue TPN. Monitor renal function. Monitor and optimize electrolytes. Hypoglycemia Continue TPN Fingerstick glucose monitoring. Malnutrition/hypoalbuminemia TPN Anasarca Improved. Intermittent Lasix and albumin as needed. Thrombocytopenia Resolved. Peripheral blood smear was not informative. No anticoagulation given intermittent anemia requiring blood transfusions. Bipolar disorder/depression/anxiety Hold oral meds given n.p.o. status. Seizures/metabolic encephalopathy Case discussed with neurology Dr. Cameron. Seizures likely metabolic related per Dr. Cameron. IV Keppra recommended. Patient placed on IV Keppra 500 mg twice daily. No further seizures thus far Suspected hypoxic encephalopathy. Neurology consulted. VTE: SCD Code: Full Dispo: Social service is exploring disposition LTAC option but does not seem to have any more available days updated on 05/30
--- NOTE | 2023-05-31 08:03 | RAD REPORT ---
[facility] 7:39 am CLINICAL HISTORY: Hypoxia COMPARISON: May 30, 2023 FINDINGS: The right basilar atelectasis appears improved. Minimal bilateral interstitial lung opacities. Heart is mildly enlarged. Lines and tubes in good position
--- NOTE | 2023-05-31 08:22 | P.PN ---
Date of Service: 05/31/23 Chief Complaint: Respiratory failure Subjective: Remains in ICU. Intubated and sedated. ROS unable to be obtained. Physical Examination Temp Pulse Resp BP Pulse Ox 97.4 F 91 H 21 H 104/66 100 05/31/23 04:00 05/31/23 06:00 05/31/23 06:20 05/31/23 06:00 05/31/23 06:20 General: Intubated and sedated. HEENT: Atraumatic, Normocephalic. NG tube with bloody output. Respiratory: Intubated. Mechanically ventilated. Cardiovascular: Regular rate and rhythm. No lower extremity edema. Gastrointestinal: Abdominal surgical incision sites with ARMIN drains x 3. Integumentary: Abdominal surgical dressing is clean dry and intact. ARMIN drains with minimal output. Urinary: Carl catheter noted. Laboratory Data - Reviewed Microbiology Data - Reviewed Imagings Data: - CT abdomen pelvis 05/18: ": Bibasilar lung consolidations are present posteriorly which may represent infiltrate or atelectasis. There is no evidence of intra- abdominal or intrapelvic abscess collection. Small moderate left inguinal hernia containing nonobstructed small bowel." - XR Chest 05/23: "Patchy bibasilar opacities, left greater than right (atelectasis and/or infiltrate)." - CT head spine wo contrast 05/23: "No acute intracranial or extra-axial abnormality. No acute cervical spine injury." - XR Chest 05/29: "The lungs are grossly clear. The heart is normal in size. No displaced fractures.Left-sided venous catheter has tip in the SVC. Enteric tube descends into the upper abdomen." - XR KUB 05/29: "Tip of the enteric tube is in the stomach. Skin tory are noted along the midline. Several drainage catheters are seen. Mildly prominent central small bowel loops identified." - CTA Chest 05/30: " Negative for a pulmonary embolism. Right lower lobe atelectasis. Mild bilateral pulmonary opacities may represent mild interstitial pulmonary edema. Esophageal dilatation" - CT abdomen pelvis w contrast 05/30: ": 4 centimeter subcapsular splenic hematoma mildly diminished in size. 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 Foster on 05/05. - Blood cultures 05/05: No growth to date - Repeat blood culture 05/11: No growth 24 hours - Urine culture 05/06: No growth to date - Pus drainage from midline abdominal incision site by Dr. Foster at bedside 05/13 - CT abdomen pelvis 05/18: ": Bibasilar lung consolidations are present posteriorly which may represent infiltrate or atelectasis. There is no evidence of intra- abdominal or intrapelvic abscess collection. Small moderate left inguinal hernia containing nonobstructed small bowel." - Fluconazole started 05/11 due to high risk/concern for superimposed fungal infection, patient also on TPN. -> Switched to Micafungin on 05/20 Acute Hypoxic Respiratory Failure - pulmonology following - sputum culture 05/11: Pseudomonoas aeruginosa - Treated with Meropenem IV. - Extubated 05/21 - XR Chest 05/29: "The lungs are grossly clear. The heart is normal in size. No displaced fractures.Left-sided venous catheter has tip in the SVC. Enteric tube descends into the upper abdomen." - 05/29: patient became hypoxic, hypotensive and tachycardic and was subsequently intubated Anti-Infective Agents - Vancomycin (05/06-05/16) (05/19-) - Micafungin (05/20-) day 12 - Previously on Meropenem (05/06-05/24) - Meropenem restarted 05/30 due to resp failure with hypoxia requiring intubation and elevated WBC to 32 05/18: Patient developed fevers up to 104.8 F on 05/18. Blood cultures obtained 05/18, no growth to date. Urinalysis not suggestive of UTI. Negative covid and negative influenza A&B. 05/23: patient had seizure in the morning. Started on keppra. 05/29-05/30: Overnight, patient became hypoxic, hypotensive and tachycardic and was subsequently intubated 05/29. WBC increased to 32. She was started on Meropenem 05/30. CTA chest negative for PE. CT abdomen/pelvis with no acute findings. Blood cultures and urine cultures obtained. WBC worsened overnight, now 32.4 Remains afebrile Recommendations - Started on Meropenem 05/30. Continue for now. Follow up with blood and urine cultures obtained 05/30 - Continue with Micafungin x 14 days (05/20-06/02) - Abdominal wound with purulent drainage on 05/19, restarted on Vancomycin 05/19, continue for 14 days. - Abdominal surgical site wound care per surgery team - Wean off ventilatory as tolerated. - Monitor WBC and fever trends - Pressure offloading measures. Turn patient q2h, wedge pillow, low air-loss mattress. Apply barrier cream to sacrum/buttocks - Seizure precautions Case discussed with Bam Kaye
[2023-05-31] MEDS ORDERED: SODIUM CHLORIDE 0.9% 10ML INJ IV PRN (09:13)
[2023-05-31] MEDS ORDERED: LEVETIRACETAM 500 MG/5 ML VIAL IV ONE ×2 (09:26→20:06)
[2023-05-31] MEDS ORDERED: NA CHLORIDE 0.9% 200 ML ONE (09:26)
[2023-05-31] MEDS: levETIRAcetam 500 MG in NA CHLORIDE 0.9% 100 ML IV SCH ×2 (09:34→20:06)
[2023-05-31] MEDS: PANTOPRAZOLE 40 MG INJ IVP SCH ×2 (10:08→20:36)
[2023-05-31] MEDS: VANCOMYCIN 1.5 GM in Dextrose 5%-Water 500 ML IVPB SCH (12:54)
[2023-05-31] MEDS: MICAFUNGIN SODIUM 100 MG in NA CHLORIDE 0.9% 100 ML IV SCH (14:33)
--- NOTE | 2023-05-31 16:18 | P.PN ---
Subjective Date of Service: 05/31/23 Chief Complaint: GI bleed, Gastric perforation Subjective: Other (remains intubated/sedated) Physical Examination - Vital Signs Temperature: 97.8 F Blood Pressure: 106/74 Pulse: 65 Respirations: 16 Pulse Ox (%): 100 - Physical Exam General: Other (chronically ill-appearing) HEENT: Atraumatic, Normocephalic Neck: Supple Respiratory: Other (intubated) Cardiovascular: No rubs, No murmurs Gastrointestinal: Soft and benign, No guarding Musculoskeletal: No clubbing Integumentary: No warmth Neurological: Other (sedated) Urinary: Other (no bladder distention) External genitalia: Deferred Rectal: Deferred Assessment And Plan - Plan 1. Acute kidney injury secondary to poor perfusion ATN, toxic ATN. SCr improved to 0.4, increased 1.3, improved to 0.9 likely secondary to prerenal state. Continue TPN same rate. Monitor renal panel. 2. Hypokalemia, hypomagnesemia, hypophosphatemia. Replete prn. 3. Hypernatremia. Improved. IV hydration & TPN as above. 4. Gastric pouch perforation, status post surgery. Per Gen Surg service. 5. Acute/chronic respiratory failure. Intubated. Per ICU team 6. Anemia. pRBC transf prn for Hgb < 7.0. No indication for DAMON.
[2023-05-31] MEDS ORDERED: DEXTROSE IV SCH ×14 (17:00)
[2023-05-31] MEDS ORDERED: LIPIDS IV SCH ×8 (17:00)
[2023-05-31] MEDS ORDERED: CALCIUM CHLORIDE IV SCH ×14 (17:00)
[2023-05-31] MEDS ORDERED: AMINO ACIDS IV SCH ×14 (17:00)
[2023-05-31] MEDS ORDERED: [UNRECOGNIZED DRUG - OTHER] IV SCH ×8 (17:00)
[2023-05-31] MEDS ORDERED: [UNRECOGNIZED DRUG - OTHER] IV SCH ×6 (17:00)
[2023-06-01] MEDS: Meropenem 1,000 MG in NA CHLORIDE 0.9% 100 ML IV SCH ×3 (00:03→16:40)
[2023-06-01] MEDS: HYDROMORPHONE HCL 2 MG/ML inj IV PRN ×5 (01:00→20:34)
[2023-06-01 06:09] LABS: Absolute Lymphocytes (CBC) 1.1 K/uL (0.7-4.9); Hematocrit 22.5 % (36.0-45.0); Lymphocytes % 12.1 % (15.3-44.8); MCV 94.5 fL (80-100); MPV 8.4 fL (7.6-11.3); Platelets 279 thou/uL (152-406); RBC Red Blood Cell Count 2.38 M/uL (3.86-4.86)
[2023-06-01 06:40] LABS: Albumin 1.6 g/dL (3.4-5.0); Bilirubin Total 0.6 mg/dL (0.2-1.0); Magnesium 1.9 mg/dL (1.6-2.4); Potassium 3.8 mEq/L (3.5-5.1); Protein, Total 5.8 g/dL (6.4-8.2)
[2023-06-01] MEDS: levETIRAcetam 500 MG in NA CHLORIDE 0.9% 100 ML IV SCH ×2 (07:48→20:33)
[2023-06-01] MEDS: PANTOPRAZOLE 40 MG INJ IVP SCH ×2 (07:49→20:33)
[2023-06-01] MEDS: LORazepam 2 MG/ML VIAL IV PRN ×4 (07:49→23:36)
[2023-06-01] MEDS ORDERED: PANTOPRAZOLE 40 MG INJ ONE (08:00)
[2023-06-01] MEDS ORDERED: Meropenem 1000 MG/VIAL IV ONE ×2 (08:00→16:52)
[2023-06-01] MEDS ORDERED: NA CHLORIDE 0.9% 200 ML ONE (08:00)
[2023-06-01] MEDS ORDERED: LORazepam 2 MG/ML VIAL ONE ×3 (08:00→23:50)
[2023-06-01] MEDS ORDERED: LEVETIRACETAM 500 MG/5 ML VIAL IV ONE ×2 (08:00→20:46)
--- NOTE | 2023-06-01 09:28 | P.PN ---
Date of Service: 06/01/23 ENT Consultation Please see dictated H&P. Impression: 1. Respiratory failure, history of gross aspiration. Plan: 1. While gross aspiration cannot be completely prevented with tracheostomy tube, I still recommend elective tracheostomy as patient has failed several extubations. Also patient's airway management will be improved and sedation potentially decreased. She most likely will need the cuffed tube until successful GI repair.
[2023-06-01] MEDS ORDERED: HYDROMORPHONE HCL 2 MG/ML inj ONE (10:16)
--- NOTE | 2023-06-01 10:36 | P.PN ---
Date of Service: 06/01/23 Subjective: continues on vent 40% FIO2, more alert / awake today. Moving all extremities, opens eyes ENT consulted and recommended for elective tracheostomy as patient has failed several extubations earliest sunday 06/03 updated over the phone 06/01, he and patient's mother agreeable to trach ROS: 10 point ROS unable to be obtained - pt intubated Physical exam: GEN: opens eyes to verbal stimuli, on mech vent HEENT: Normal conjunctiva, sclera anicteric CV: Regular rate and rhythm, trace b/l pedal edema Pulm: diminished at bases bilaterally, on mech ventilation; 40% FIO2 ABD: Soft, nontender, nondistended, ARMIN drain in place x3- with small amt serosanguinous drainage Neuro: intubated, on vent, eyes open spontaneously Carl in place (replaced 05/29) NGT in place LIWS central line Vitals reviewed Problem List 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 S/P repair 05/05 Acute blood loss anemia secondary to above Hypovolemic shock secondary to GI bleed Acute hypoxic respiratory failure/acute lung injury Acetaminophen toxicity JERI secondary to acute blood loss anemia, hypotension/prerenal state Fever Hypoglycemia Malnutrition/hypoalbuminemia Bipolar disorder/depression/anxiety Seizures/metabolic encephalopathy 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 (05/05) Dr. Foster discussed with bariatric surgeons - not much options, need to wait many months before would attempt any further intra-abdominal procedures ARMIN drains still in place with minimal to no output J-tube Feeding discontinued due to leak/ nonfunctioning; suspected pulled out partially while patient was moving around/restless last week NG tube draining dark blood 05/30 She is on vancomycin and micafungin. Continue TPN at the current rate. Total 11 units PRBC transfused. HGB 8.3 -> 7.6 (06/01) Back on continuous PPI IV after episode of GI bleeding last week transition to BID dosing 05/31 CT abd/pelvis (05/30): 4 cm subcapsular splenic hematoma mildly diminished in size Fever; now resolved No clear source of infection. Afebrile for several days now. Blood cx (05/18): No growth; Blood cx (05/30): NGTD Urine cx (05/30): Prelim 4+ GNR CT chest/abd (05/18) with no obvious infectious findings-atelectasis vs infiltrate CTA chest (05/30): with RLL atelectasis, mild b/l pulm opacities, esophageal dilation. no PE Anti-Infective Agents - Meropenem (05/06-05/24) (05/30-) - Vancomycin (05/06-05/16) (05/19-) - Micafungin (05/20-) Continue with Micafungin / Vancomycin for 2 weeks total per ID (05/19-06/02). continue merrem (05/30-), added 05/30 per pulm d/t worsening respiratory failure / leukocytosis (05/30) repeat blood and urine cultures obtained. follow cultures afebrile, leukocytosis improving Acute hypoxic respiratory failure/acute lung injury Patient extubated to oxygen by nasal cannula 05/21 Had to be re intubated overnight 05/29 for hypoxic respiratory failure unclear etiology, atelectasis vs mucous/blood clot plug improving, on 40% fio2 ENT consulted and recommended for elective tracheostomy as patient has failed several extubations to be done this coming ~Saturday/Saturday. updated on plan over the phone 06/01 CTA chest (05/30): No PE. RLL atelectasis, Mild bilateral pulmonary opacities, esophageal dilation Pulmonolgy is following. Sputum culture grew Pseudomonas. Patient completed treatment with Merrem. continues on vent Acetaminophen toxicity Patient completed acetylcysteine IV infusion for APAP toxicity. Resolved. JERI secondary to acute blood loss anemia, hypotension/prerenal state JERI resolved. Nephrology is following. Continue TPN. Monitor renal function. Monitor and optimize electrolytes. Hypoglycemia Continue TPN Fingerstick glucose monitoring. Malnutrition/hypoalbuminemia TPN Anasarca Improved. Intermittent Lasix and albumin as needed. Thrombocytopenia Resolved. Peripheral blood smear was not informative. No anticoagulation given intermittent anemia requiring blood transfusions. Bipolar disorder/depression/anxiety Hold oral meds given n.p.o. status. Seizures/metabolic encephalopathy Case discussed with neurology Dr. Cameron. Seizures likely metabolic related per Dr. Cameron. IV Keppra recommended. Patient placed on IV Keppra 500 mg twice daily. No further seizures thus far Suspected hypoxic encephalopathy. Neurology consulted. VTE: SCD Code: Full Dispo: Social service is exploring disposition LTAC option but does not seem to have any more available days updated on 06/01 trach planned for saturday/saturday
--- NOTE | 2023-06-01 10:52 | PN ---
Date of Progress Note: 06/01/2023 Subjective: The patient was admitted to the hospital with anasarca, perforated viscus. The patient underwent surgery. The patient had acute kidney injury, did not require any dialysis. After diuresi s, the patient recovered. The patient had upper GI bleed, still vent dependent. Physical Examination: Vital Signs: Blood pressure 120/72, pulse of 55, afebrile. The patient had good urine output of 230 0 positive balance. Chest: Clear to auscultation. Heart: S1, S2, regular. Abdomen: Soft, nontender. Extremities: No edema. Neurologic: Alert. No focality. Lab: Hemoglobin 7.6. Sodium 137, potassium 3.8, bicarb 22, BUN 39, creatinine 0.6. Calcium 8.2, ph osphorus 2, magnesium 1.9. Current Medications: The patient on include meropenem, micafungin, vancomycin, labetalol, Tylenol, K eppra, propofol, pantoprazole, and Zofran. Assessment And Plan: 1.Acute kidney injury secondary to prerenal toxic ATN secondary to sepsis, recovered, resolved, norm al volume currently. I am going to continue to monitor the patient off diuresis. We will adjust the TPN. 2.Hypertension, controlled, optimal. 3.Hyponatremia, resolved. 4.Hypokalemia, hypercalcemia. After adjusting the TPN have resolved. 5.Septic shock. By primary. 6.Perforated viscus. Follow up with Surgery and the primary. 7.Respiratory failure. Continue vent support. NATALIIA Voice ID: [id number] Report ID: [id number]
--- NOTE | 2023-06-01 11:08 | CON ---
Date of Consultation: 06/01/2023 Chief Complaint: Respiratory failure. History Of Present Illness: Patient is a 48-year-old female who presented to the hospital on 05/05/2023 for upper GI bleeding from the her bypass site. She was subsequently taken to the operating room by Dr. Foster who did an emergent exploratory laparotomy and small bowel David limb repair and repair of gastric pouch rupture with control of bleeding, extensive lysis of adhesions, jejunostomy, and evacuation of hemoperitoneum. She was then placed in the ICU and intubated on the ventilation machine. Several attempts at extubation have not been successful. Thus, I was consulted for further evaluation. Upon arrival to bedside, patient actually is alert and making eye contact. She is intubated on the vent and stable at this time. Rest of history was taken from the chart. The patient was intubated due to gross aspiration events and oxygen desaturation. Allergies: NO KNOWN DRUG ALLERGIES. Home Medications: Include buspirone, citalopram, trazodone, lamotrigine. Past Medical History: Bipolar, depression, anxiety, abdominal hernia, right hip surgery, hysterectomy, gastric bypass. Psychosocial And Personal History: The patient is unemployed and lives at home with her and children. Family History: Medical history for father is GI disease. Social History: Former smoker and occasional alcohol and caffeine use. Review of Systems: Unable to be obtained due to patient intubated on the vent. Physical Examination: Vital Signs: Stable. General: The patient is awake and alert and intubated on the vent. Head: Atraumatic, normocephalic. Eyes: PERRLA/EOMI. Ears: Deferred. Nose: NG tube intact. Oral Cavity: Dry oral mucosa. Endotracheal tube intact. Neck: Supple. Trachea is midline. The patient has adequate palpable laryngeal landmarks and cricoid is easily palpated. Diagnosis: Respiratory failure with several failed extubations. Recommendations: Due to gross aspiration events and several extubations with subsequent reintubations, I am recommending a tracheostomy tube with cuff placement. While it will not prevent microaspiration, it will help with gross aspiration events, pulmonary toilet and potential to decrease sedation. If the repair of her GI tract is delayed 6 months, she may need a cuffed tracheostomy tube for this period of time, with several trach changes needed. Plan was discussed with Dr. Gaffney and we plan on taking her to the OR in next few days once we get consent from her spouse. ALAINA/JIMMIE Voice ID: [id number] Report ID: [id number] ELENI
[2023-06-01] MEDS: MICAFUNGIN SODIUM 100 MG in NA CHLORIDE 0.9% 100 ML IV SCH (12:50)
[2023-06-01 13:43] LABS: Hematocrit 22.7 % (36.0-45.0); MCV 94.2 fL (80-100); MPV 8.2 fL (7.6-11.3); Platelets 290 thou/uL (152-406); RBC Red Blood Cell Count 2.41 M/uL (3.86-4.86)
[2023-06-01] MEDS: MIDAZOLAM HCL 2 MG/2 ML INJ IV PRN ×2 (13:53→19:26)
[2023-06-01] MEDS: DEXMEDETOMIDINE HCL 1,000 MCG in NA CHLORIDE 0.9% 490 ML IV SCH (15:44)
[2023-06-01] MEDS: CALCIUM CHLORIDE IV SCH ×5 (16:40)
[2023-06-01] MEDS: AMINO ACIDS IV SCH ×5 (16:40)
[2023-06-01] MEDS: SODIUM ACETATE IV SCH ×5 (16:40)
[2023-06-01] MEDS: DEXTROSE 20% IV SCH ×5 (16:40)
[2023-06-01] MEDS: [UNRECOGNIZED DRUG - OTHER] IV SCH ×5 (16:40)
[2023-06-01] MEDS ORDERED: NA CHLORIDE 0.9% 100 ML ONE ×2 (16:52→20:46)
[2023-06-01] MEDS ORDERED: CALCIUM CHLORIDE IV SCH ×7 (17:00)
[2023-06-01] MEDS ORDERED: AMINO ACIDS IV SCH ×7 (17:00)
[2023-06-01] MEDS ORDERED: POTASSIUM CHLORIDE IV SCH ×7 (17:00)
[2023-06-01] MEDS ORDERED: DEXTROSE 20% IV SCH ×7 (17:00)
[2023-06-01] MEDS ORDERED: [UNRECOGNIZED DRUG - OTHER] IV SCH ×7 (17:00)
[2023-06-02] MEDS: VANCOMYCIN 1.5 GM in Dextrose 5%-Water 500 ML IVPB SCH (00:17)
[2023-06-02] MEDS: Meropenem 1,000 MG in NA CHLORIDE 0.9% 100 ML IV SCH ×3 (01:18→16:34)
[2023-06-02] MEDS ORDERED: Meropenem 1000 MG/VIAL IV ONE ×3 (01:31→16:45)
[2023-06-02] MEDS ORDERED: NA CHLORIDE 0.9% 100 ML ONE ×4 (01:31→16:45)
[2023-06-02] MEDS: MIDAZOLAM HCL 2 MG/2 ML INJ IV PRN ×5 (02:00→19:17)
[2023-06-02] MEDS ORDERED: MIDAZOLAM HCL 2 MG/2 ML INJ ONE (02:13)
[2023-06-02] MEDS: HYDROMORPHONE HCL 2 MG/ML inj IV PRN ×5 (03:09→22:26)
[2023-06-02] MEDS ORDERED: HYDROMORPHONE HCL 2 MG/ML inj ONE ×2 (03:24→22:40)
[2023-06-02 06:44] LABS: Absolute Lymphocytes (CBC) 1.1 K/uL (0.7-4.9); Hematocrit 22.3 % (36.0-45.0); Lymphocytes % 15.5 % (15.3-44.8); MCV 94.3 fL (80-100); MPV 8.2 fL (7.6-11.3); Platelets 256 thou/uL (152-406); RBC Red Blood Cell Count 2.36 M/uL (3.86-4.86)
[2023-06-02 07:00] LABS: Albumin 1.7 g/dL (3.4-5.0); Bilirubin Total 0.5 mg/dL (0.2-1.0); Magnesium 1.8 mg/dL (1.6-2.4); Phosphorus 2.2 mg/dL (2.5-4.9); Potassium 3.5 mEq/L (3.5-5.1); Protein, Total 5.8 g/dL (6.4-8.2)
[2023-06-02 07:48] LABS: Anisocytosis 1+; Blood Morphology Comment NOTED (NOT SEEN); Platelet Estimate ADEQ; Polychromasia SLIGHT
[2023-06-02] MEDS ORDERED: POTASSIUM PHOS IN 0.9 % NACL 15 MMOL/250 ML BAG IV ONE (07:57)
[2023-06-02] MEDS ORDERED: MAGNESIUM SULFATE 1 gm IVPB 1 GM/100 ML BAG IV ONE (07:57)
[2023-06-02] MEDS: PANTOPRAZOLE 40 MG INJ IVP SCH ×2 (08:23→21:26)
--- NOTE | 2023-06-02 08:30 | P.PN ---
Date of Service: 06/02/23 Subjective: continues on vent 40% FIO2. Moving all extremities, opens eyes hgb down to 7.4 this am. plan to give 1u PRBC bloody secretions from NGT / oral suction less dark ./ black stool overnight ROS: 10 point ROS unable to be obtained - pt intubated Physical exam: GEN: opens eyes to verbal stimuli, on mech vent HEENT: Normal conjunctiva, sclera anicteric CV: Regular rate and rhythm, trace b/l pedal edema Pulm: diminished at bases bilaterally, on mech ventilation; 40% FIO2 ABD: Soft, nontender, nondistended, AMRIN drain in place x3- with minimal drainage Neuro: intubated, on vent, eyes open spontaneously Carl in place (replaced 05/29) NGT in place LIWS central line Vitals reviewed Problem List 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 S/P repair 05/05 Acute blood loss anemia secondary to above Hypovolemic shock secondary to GI bleed UTI, MDR Pseudomonas Aeruginosa Acute hypoxic respiratory failure/acute lung injury Acetaminophen toxicity JERI secondary to acute blood loss anemia, hypotension/prerenal state Hypoglycemia Malnutrition/hypoalbuminemia Bipolar disorder/depression/anxiety Seizures/metabolic encephalopathy 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 (05/05) Dr. Foster discussed with bariatric surgeons - not much options, need to wait many months before would attempt any further intra-abdominal procedures ARMIN drains still in place with minimal to no output J-tube Feeding discontinued due to leak/ nonfunctioning; suspected pulled out partially while patient was moving around/restless last week NG tube draining dark blood 05/30 She is on vancomycin and micafungin. Continue TPN at the current rate. Total 11 units PRBC transfused. HGB 8.3 -> 7.6 (06/01) 1 uPRBC ordered 06/02 Back on continuous PPI IV after episode of GI bleeding last week transition to BID dosing 05/31 CT abd/pelvis (05/30): 4 cm subcapsular splenic hematoma mildly diminished in si ze UTI, MDR Pseudomonas Aeruginosa Blood cx (05/18): No growth; Blood cx (05/30): NGTD Urine cx (05/30): Pseudomonas Aeruginosa sputum cx (05/31): Pseudomonas Aeruginosa CT chest/abd (05/18) with no obvious infectious findings-atelectasis vs infiltrate CTA chest (05/30): with RLL atelectasis, mild b/l pulm opacities, esophageal dilation. no PE. Anti-Infective Agents - Meropenem (05/06-05/24) (05/30-) - Vancomycin (05/06-05/16) (05/19-) - Micafungin (05/20-) Continue with Micafungin / Vancomycin for 2 weeks total per ID (05/19-06/02). continue merrem (05/30-), added 05/30 per pulm d/t worsening respiratory failure / leukocytosis repeat urine and sputum culture 05/30 grew Pseudomonas Aeruginosa again, resistant to merrem adjust antibiotics afebrile, leukocytosis improving Acute hypoxic respiratory failure/acute lung injury Patient extubated to oxygen by nasal cannula 05/21 Had to be re intubated overnight 05/29 for hypoxic respiratory failure unclear etiology, atelectasis vs mucous/blood clot plug improving, on 40% fio2 ENT consulted and recommended for elective tracheostomy as patient has failed several extubations to be done this coming ~Saturday/Saturday. updated on plan over the phone 06/01 CTA chest (05/30): No PE. RLL atelectasis, Mild bilateral pulmonary opacities, esophageal dilation Pulmonolgy is following. Sputum culture grew Pseudomonas. Patient completed treatment with Merrem. repeat sputum culture from 05/31 grew MDR Pseudomonas Aeruginosa, resulted 06/02; resistant to merrem continues on vent Acetaminophen toxicity Patient completed acetylcysteine IV infusion for APAP toxicity. Resolved. JERI secondary to acute blood loss anemia, hypotension/prerenal state JERI resolved. Nephrology is following. Continue TPN. Monitor renal function. Monitor and optimize electrolytes. Hypoglycemia Continue TPN Fingerstick glucose monitoring. Malnutrition/hypoalbuminemia TPN Anasarca Improved. Intermittent Lasix and albumin as needed. Thrombocytopenia Resolved. Peripheral blood smear was not informative. No anticoagulation given intermittent anemia requiring blood transfusions. Bipolar disorder/depression/anxiety Hold oral meds given n.p.o. status. Seizures/metabolic encephalopathy Case discussed with neurology Dr. Cameron. Seizures likely metabolic related per Dr. Cameron. IV Keppra recommended. Patient placed on IV Keppra 500 mg twice daily. No further seizures thus far Suspected hypoxic encephalopathy. Neurology consulted. VTE: SCD Code: Full Dispo: Social service is exploring disposition LTAC option but does not seem to have any more available days updated on 06/01 trach planned for saturday ~12:45pm
[2023-06-02] MEDS: levETIRAcetam 500 MG in NA CHLORIDE 0.9% 100 ML IV SCH ×2 (09:21→21:25)
[2023-06-02] MEDS ORDERED: LEVETIRACETAM 500 MG/5 ML VIAL IV ONE ×2 (09:28→21:38)
[2023-06-02] MEDS ORDERED: NA CHLORIDE 0.9% 250 ML ONE (10:18)
--- NOTE | 2023-06-02 10:58 | PN ---
Date of Progress Note: 06/02/2023 Subjective: Patient was admitted to the hospital with perforated viscus. Has anasarca, required diu resis with acute kidney injury secondary to toxic ATN, did not require any renal replacement therapy. Patient had intubation, extubation, and intubation of tracheostomy. Had electrolyte imbalance with hypernatremia resolved. Physical Examination: Vital Signs: Blood pressure 117/91, pulse of 52. Patient had good urine output of 1900. Chest: Decreased entry bilateral base. Heart: S1, S2. Regular. Abdomen: Soft, nontender. Extremities: Trace edema. Neuro: Patient is on vent. Laboratory Data: Hemoglobin 7.4. Chest x-ray on the has been improvement on the congestion. So dium 138, potassium 3.5, bicarb 24, BUN 30, creatinine 0.5, calcium 8.1. Phosphorus 2.2, magnesium 1 .8. Current Medications: The patient is on include meropenem, micafungin, vancomycin, lorazepam, magnesi um sulfate, fentanyl. Assessment And Plan: 1.Acute kidney injury secondary to cardiorenal, toxic acute tubular necrosis, recovered, resolved. 2.Hypokalemia, hypophosphatemia hypomagnesemia. We will adjust her TPN. 3.Hypertension, controlled, optimal. 4.Anasarca, resolved. 5.Respiratory failure as by primary. 6.Hypercalcemia, has been resolved. LISA/JIMMIE Voice ID: [id number] Report ID: [id number]
[2023-06-02] MEDS: LORazepam 2 MG/ML VIAL IV PRN ×2 (13:37→21:01)
[2023-06-02] MEDS: DEXMEDETOMIDINE HCL 1,000 MCG in NA CHLORIDE 0.9% 490 ML IV SCH (14:30)
[2023-06-02] MEDS: MICAFUNGIN SODIUM 100 MG in NA CHLORIDE 0.9% 100 ML IV SCH (14:30)
[2023-06-02] MEDS: DEXTROSE 20% IV SCH ×5 (16:33)
[2023-06-02] MEDS: AMINO ACIDS IV SCH ×5 (16:33)
[2023-06-02] MEDS: CALCIUM CHLORIDE IV SCH ×5 (16:33)
[2023-06-02] MEDS: SODIUM ACETATE IV SCH ×5 (16:33)
[2023-06-02] MEDS: [UNRECOGNIZED DRUG - OTHER] IV SCH ×5 (16:33)
--- NOTE | 2023-06-02 16:35 | PN ---
Date of Progress Note: 06/02/2023 Objective: Vital Signs: Stable with temperature 97.5, pulse is about 48, blood pressure is 113/99, O2 saturation is 100%. Patient is ventilated. Physical exam has been unchanged from the surgical standpoint. The NG tube is still in place. Feedi ng tube was removed. Midline incision is intact. Review of Systems: Unable to be obtained. Laboratory Data: The WBC count of 7, hemoglobin of 7.4, still requiring blood transfusion. Plan: Once again, we discussed with the bariatric surgeon last week. There was no plan to reverse t his surgery and provide a continuation of a gastric until medically she improves several months from now when the swelling goes down. So, from the standpoint, we have somewhat TPN that will need to con tinue that until surgical intervention is planned in the future, but the timing at this moment, may t [place] months. In the meantime, DVT prophylaxis, offloading pressure points. I agree with the tracheos sami that the medical doctors are planning to. Yes, she may benefit since she has been ventilator de pendent. Her kidney function has improved a little bit. Her lungs are not the same thing and GI tra ct is not the same. as necessary. The NG put about 50 cc out. There is no active visual ized bleeding that contribute to all this. At the same time, she is probably not able to build a new blood on her own for her critical care. Still we are going to be looking for other signs of bleeding. It is important to correct temperature. It is impo rtant to correct coagulopathy. HM/MODL Voice ID: [id number] Report ID: [id number]
[2023-06-02 17:19] LABS: Hematocrit 25.6 % (36.0-45.0)
[2023-06-02] MEDS: CEFEPIME 2 GM in NA CHLORIDE 0.9% 100 ML IV SCH (21:25)
[2023-06-02] MEDS ORDERED: CEFEPIME 2 GM VIAL ONE (21:38)
[2023-06-02] MEDS ORDERED: NA CHLORIDE 0.9% 200 ML ONE (21:39)
[2023-06-02] MEDS: DIPHENHYDRAMINE 50 MG/ML VIAL IV PRN (22:10)
[2023-06-02] MEDS ORDERED: DIPHENHYDRAMINE 50 MG/ML VIAL ONE (22:23)
[2023-06-03] MEDS: CEFEPIME 2 GM in NA CHLORIDE 0.9% 100 ML IV SCH ×3 (01:08→16:32)
[2023-06-03] MEDS: Meropenem 1,000 MG in NA CHLORIDE 0.9% 100 ML IV SCH (01:09)
[2023-06-03] MEDS: MIDAZOLAM HCL 2 MG/2 ML INJ IV PRN ×2 (01:10→02:41)
[2023-06-03] MEDS ORDERED: Meropenem 1000 MG/VIAL IV ONE ×2 (01:22→08:55)
[2023-06-03] MEDS ORDERED: MIDAZOLAM HCL 2 MG/2 ML INJ ONE ×3 (01:22→17:40)
[2023-06-03] MEDS ORDERED: CEFEPIME 2 GM VIAL ONE ×3 (01:22→16:44)
[2023-06-03] MEDS ORDERED: NA CHLORIDE 0.9% 200 ML ONE (01:22)
[2023-06-03] MEDS: HYDROMORPHONE HCL 2 MG/ML inj IV PRN ×4 (02:41→20:10)
[2023-06-03] MEDS ORDERED: HYDROMORPHONE HCL 2 MG/ML inj ONE ×4 (02:55→20:20)
[2023-06-03] MEDS: DIPHENHYDRAMINE 50 MG/ML VIAL IV PRN (04:35)
[2023-06-03] MEDS ORDERED: DIPHENHYDRAMINE 50 MG/ML VIAL ONE (04:49)
[2023-06-03 05:18] LABS: Absolute Lymphocytes (CBC) 0.9 K/uL (0.7-4.9); Hematocrit 24.5 % (36.0-45.0); Lymphocytes % 14.1 % (15.3-44.8); MCV 92.7 fL (80-100); MPV 8.3 fL (7.6-11.3); Platelets 227 thou/uL (152-406); RBC Red Blood Cell Count 2.64 M/uL (3.86-4.86)
[2023-06-03 05:39] LABS: Albumin 1.7 g/dL (3.4-5.0); Bilirubin Total 0.7 mg/dL (0.2-1.0); Magnesium 1.8 mg/dL (1.6-2.4); Phosphorus 2.8 mg/dL (2.5-4.9); Potassium 3.5 mEq/L (3.5-5.1); Protein, Total 5.9 g/dL (6.4-8.2)
[2023-06-03] MEDS: LORazepam 2 MG/ML VIAL IV PRN ×4 (06:03→23:02)
[2023-06-03] MEDS ORDERED: LORazepam 2 MG/ML VIAL ONE ×3 (06:17→23:15)
--- NOTE | 2023-06-03 07:28 | P.PN ---
Date of Service: 06/03/23 Subjective: continues on vent, 40% FIO2. awake/alert, no acute events overnight trach planned for today ROS: 10 point ROS unable to be obtained - pt intubated Physical exam: GEN: opens eyes to verbal stimuli, on mech vent HEENT: Normal conjunctiva, sclera anicteric CV: Regular rate and rhythm, trace b/l pedal edema Pulm: diminished at bases bilaterally, on mech ventilation; 40% FIO2 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 S/P repair 05/05 Acute blood loss anemia secondary to above Hypovolemic shock secondary to GI bleed UTI, MDR Pseudomonas Aeruginosa Acute hypoxic respiratory failure/acute lung injury Acetaminophen toxicity JERI secondary to acute blood loss anemia, hypotension/prerenal state Hypoglycemia Malnutrition/hypoalbuminemia Bipolar disorder/depression/anxiety Seizures/metabolic encephalopathy 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 (05/05) Dr. Foster discussed with bariatric surgeons - not much options, need to wait many months before would attempt any further intra-abdominal procedures ARMIN drains still in place with minimal to no output J-tube Feeding dc'd due to leak/ nonfunctioning; suspected pulled out partially while patient was moving around/restless last week NG tube draining dark blood 05/30 She is on vancomycin and micafungin. Continue TPN at the current rate. Total 12 units PRBC transfused. HGB 8.5 -> 8.3 (06/03) Back on continuous PPI IV after episode of GI bleeding last week transition to BID dosing 05/31 CT abd/pelvis (05/30): 4 cm subcapsular splenic hematoma mildly diminished in size UTI, MDR Pseudomonas Aeruginosa Blood cx (05/18): No growth; Blood cx (05/30): NGTD Urine cx (05/30): Pseudomonas Aeruginosa sputum cx (05/31): Pseudomonas Aeruginosa CT chest/abd (05/18) with no obvious infectious findings-atelectasis vs infiltrate CTA chest (05/30): with RLL atelectasis, mild b/l pulm opacities, esophageal dilation. no PE. Anti-Infective Agents - Meropenem (05/06-05/24), (05/30-06/03) - Vancomycin (05/06-05/16) (05/19-) - Micafungin (05/20-) Continue with Micafungin / Vancomycin for 2 weeks total per ID (05/20-06/03) continue cefepime for 2 weeks total per ID (06/02-06/16) repeat urine and sputum culture 05/30 grew Pseudomonas Aeruginosa again, resistant to merrem merrem switched to cefepime given culture sensitivity 06/02 afebrile, leukocytosis resolved Acute hypoxic respiratory failure/acute lung injury Patient extubated to oxygen by nasal cannula 05/21 re intubated overnight 05/29 for hypoxic respiratory failure CTA chest (05/30): No PE. RLL atelectasis, Mild bilateral pulmonary opacities, esophageal dilation unclear etiology, atelectasis vs mucous/blood clot plug doing well, plan for trach on 06/03; ENT consulted; family updated and agreed pulm out of town until 06/15 Initial Sputum culture grew Pseudomonas and completed 2 week course of merrem, however sputum growing pseudomonas again, now resistant to merrem (06/02) continues on vent Acetaminophen toxicity Patient completed acetylcysteine IV infusion for APAP toxicity. Resolved. JERI secondary to acute blood loss anemia, hypotension/prerenal state Hypoglycemia Malnutrition/hypoalbuminemia JERI resolved. Nephrology is following. Continue TPN. Monitor renal function. Monitor and optimize electrolytes. Fingerstick glucose monitoring. Anasarca Improved. Intermittent Lasix and albumin as needed. Thrombocytopenia Resolved. Peripheral blood smear was not informative. No anticoagulation given intermittent anemia requiring blood transfusions. Bipolar disorder/depression/anxiety Hold oral meds given n.p.o. status. Seizures/metabolic encephalopathy Case discussed with neurology Dr. Cameron. Seizures likely metabolic related per Dr. Cameron. IV Keppra recommended. Patient placed on IV Keppra 500 mg twice daily. No further seizures thus far Suspected hypoxic encephalopathy. Neurology consulted. will need to discuss further on prison plans, patient without enteral access, and will remain this way for ~6 months VTE: SCD Code: Full Dispo: Social service is exploring disposition LTAC option but does not seem to have any more available days trach planned for today ~12:45pm
[2023-06-03] MEDS ORDERED: KCL 20 MEQ/100 mL IVPB 20 MEQ/100 ML BAG IV SCH (08:00)
[2023-06-03] MEDS ORDERED: MAGNESIUM SULFATE 1 gm IVPB 1 GM/100 ML BAG IV ONE (08:00)
--- NOTE | 2023-06-03 08:14 | P.PN ---
Date of Service: 06/03/23 Chief Complaint: Respiratory failure Subjective: Intubated and sedated. Scheduled for trach placement today. No acute events overnight. Physical Examination Temp Pulse Resp BP Pulse Ox 97.8 F 52 16 136/79 100 06/03/23 04:00 06/03/23 07:00 06/03/23 07:00 06/03/23 07:00 06/03/23 07:00 General: Intubated and sedated. HEENT: Atraumatic, Normocephalic. Respiratory: Intubated. Mechanically ventilated. Cardiovascular: Regular rate and rhythm. No lower extremity edema. Gastrointestinal: Abdominal surgical incision sites with ARMIN drains x 3. Integumentary: Abdominal surgical dressing is clean dry and intact. ARMIN drains with minimal output. Urinary: Carl catheter noted. Laboratory Data - Reviewed Microbiology Data - Reviewed Imagings Data: - CT abdomen pelvis 05/18: ": Bibasilar lung consolidations are present posteriorly which may represent infiltrate or atelectasis. There is no evidence of intra- abdominal or intrapelvic abscess collection. Small moderate left inguinal hernia containing nonobstructed small bowel." - XR Chest 05/23: "Patchy bibasilar opacities, left greater than right (atelectasis and/or infiltrate)." - CT head spine wo contrast 05/23: "No acute intracranial or extra-axial abnormality. No acute cervical spine injury." - XR Chest 05/29: "The lungs are grossly clear. The heart is normal in size. No displaced fractures.Left-sided venous catheter has tip in the SVC. Enteric tube descends into the upper abdomen." - XR KUB 05/29: "Tip of the enteric tube is in the stomach. Skin tory are noted along the midline. Several drainage catheters are seen. Mildly prominent central small bowel loops identified." - CTA Chest 05/30: " Negative for a pulmonary embolism. Right lower lobe atelectasis. Mild bilateral pulmonary opacities may represent mild interstitial pulmonary edema. Esophageal dilatation" - CT abdomen pelvis w contrast 05/30: ": 4 centimeter subcapsular splenic hematoma mildly diminished in size. 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 Foster on 05/05. - Blood cultures 05/05: No growth to date - Repeat blood culture 05/11: No growth 24 hours - Urine culture 05/06: No growth to date - Pus drainage from midline abdominal incision site by Dr. Foster at bedside 05/13 - CT abdomen pelvis 05/18: ": Bibasilar lung consolidations are present posteriorly which may represent infiltrate or atelectasis. There is no evidence of intra- abdominal or intrapelvic abscess collection. Small moderate left inguinal hernia containing nonobstructed small bowel." - Fluconazole started 05/11 due to high risk/concern for superimposed fungal infection, patient also on TPN. -> Switched to Micafungin on 05/20 Acute Hypoxic Respiratory Failure - pulmonology following - sputum culture 05/11: Pseudomonoas aeruginosa - Treated with Meropenem IV. - Extubated 05/21 - XR Chest 05/29: "The lungs are grossly clear. The heart is normal in size. No displaced fractures.Left-sided venous catheter has tip in the SVC. Enteric tube descends into the upper abdomen." - 05/29: patient became hypoxic, hypotensive and tachycardic and was subsequently intubated - Sputum culture 05/31: Pseudomonoas aeruginosa - Resistant to meropenem. Started on Cefepime 06/02 Catheter-Associated Urinary Tract Infection - Urine culture 05/30: Pseudomonoas aeruginosa - resistant to meropenem. - on Cefepime (started 06/02) Anti-Infective Agents - Cefepime (06/02-) - Vancomycin (05/06-05/16) (05/19-) - Micafungin (05/20-) - Previously on Meropenem (05/06-05/24), (05/30-06/03) 05/18: Patient developed fevers up to 104.8 F on 05/18. Blood cultures obtained 05/18, no growth to date. Urinalysis not suggestive of UTI. Negative covid and negative influenza A&B. 05/23: patient had seizure in the morning. Started on keppra. 05/29-05/30: Overnight, patient became hypoxic, hypotensive and tachycardic and was subsequently intubated 05/29. WBC increased to 32. She was started on Meropenem 05/30. CTA chest negative for PE. CT abdomen/pelvis with no acute findings. Blood cultures and urine cultures obtained. 06/02: sputum and urine culture growing Pseudomonoas aeruginosa resistant to meropenem. Started on Cefepime 06/02. Leukocytosis resolved. Remains afebrile Recommendations - sputum and urine culture growing Pseudomonoas aeruginosa resistant to meropenem. Started on Cefepime 06/02. - Continue Cefepime for 10 days (06/02 to 06/16) - Discontinue Micafungin. - Abdominal surgical site wound care per surgery team - Monitor WBC and fever trends - Pressure offloading measures. Turn patient q2h, wedge pillow, low air-loss mattress. Apply barrier cream to sacrum/buttocks - Seizure precautions Pending trach placement. Case discussed with Bam Kaye
[2023-06-03] MEDS: levETIRAcetam 500 MG in NA CHLORIDE 0.9% 100 ML IV SCH ×2 (08:44→21:55)
[2023-06-03] MEDS ORDERED: NA CHLORIDE 0.9% 100 ML ONE ×4 (08:55→22:13)
[2023-06-03] MEDS ORDERED: LEVETIRACETAM 500 MG/5 ML VIAL IV ONE ×2 (08:55→22:12)
[2023-06-03] MEDS: PANTOPRAZOLE 40 MG INJ IVP SCH ×2 (09:47→22:20)
[2023-06-03] MEDS ORDERED: PANTOPRAZOLE 40 MG INJ ONE ×2 (10:01→22:25)
[2023-06-03] MEDS: DEXMEDETOMIDINE HCL 1,000 MCG in NA CHLORIDE 0.9% 490 ML IV SCH (11:27)
[2023-06-03] MEDS: VANCOMYCIN 1.5 GM in Dextrose 5%-Water 500 ML IVPB SCH (12:35)
[2023-06-03] MEDS: MICAFUNGIN SODIUM 100 MG in NA CHLORIDE 0.9% 100 ML IV SCH (14:00)
[2023-06-03] MEDS: FENTANYL CITR 100 MCG/2 ML IV PRN (16:30)
[2023-06-03] MEDS ORDERED: FENTANYL CITR 100 MCG/2 ML ONE ×2 (16:44→17:40)
[2023-06-03] MEDS ORDERED: DEXTROSE IV SCH ×7 (17:00)
[2023-06-03] MEDS ORDERED: CALCIUM CHLORIDE IV SCH ×7 (17:00)
[2023-06-03] MEDS ORDERED: [UNRECOGNIZED DRUG - OTHER] IV SCH ×7 (17:00)
[2023-06-03] MEDS ORDERED: AMINO ACIDS IV SCH ×7 (17:00)
[2023-06-03] MEDS ORDERED: propofoL 200 MG/20 ML VIAL IV ONE (17:40)
[2023-06-03] MEDS: LIDOCAINE HCL/EPINEPHRINE 20 ML MDV ONE ×2 (17:56→18:40)
[2023-06-03] MEDS: NA CHLORIDE 0.9% 1,000 ML ONE ×2 (17:57→18:23)
[2023-06-03] MEDS ORDERED: ROCURONIUM 50 MG/5 ML VIAL IV ONE (18:10)
--- NOTE | 2023-06-03 18:16 | PN ---
Date of Progress Note: 06/03/2023 Subjective: The patient is intubated and sedated. Review of Systems: Unable to be obtained. Objective: Chest: Bilateral breath sounds. Abdomen: Soft and depressible. Incisions are intact. No infection. No cellulitis. No purulent di scharge. The fascia is intact. Bowel sounds were positive. Extremities: Good capillary refill. No swelling. No calf tenderness. Drains and Tubes: ARMIN drain is serosanguineous. The NG tube is in way. Laboratory Data: The blood work reviewed. Plan: I know there are plans today for do a tracheostomy tube. I am going to let the ENT doctors landen rae decide when it is a proper timing. From the surgical standpoint, no plans at this moment intraabd ominally other than to continue medical service. TABATHA/JIMMIE Voice ID: [id number] Report ID: [id number]
--- NOTE | 2023-06-03 20:45 | RAD REPORT ---
[facility] CLINICAL HISTORY: Device placement/ tracheostomy tube placement IMPRESSION: Tracheostomy tube has been placed in good position. No pneumothorax. No pneumomediastinum
--- NOTE | 2023-06-03 21:45 | RAD REPORT ---
EXAM DESCRIPTION: RAD - Chest Single View - 06/03/2023 9:36 pm CLINICAL HISTORY: Device placement PICC line placement IMPRESSION: PICC line with its tip in the superior vena cava
[2023-06-04] MEDS: HYDROMORPHONE HCL 2 MG/ML inj IV PRN ×5 (00:01→22:55)
[2023-06-04] MEDS ORDERED: HYDROMORPHONE HCL 2 MG/ML inj ONE ×4 (00:13→22:08)
--- NOTE | 2023-06-04 00:49 | PN ---
Date of Progress Note: 06/03/2023 Chief Complaint: Acute kidney injury, fluid overload. Subjective: The patient was admitted to the hospital with perforated viscus, has had anasarca and re quired diuresis. The patient was found to have acute kidney injury due to toxic ATN in the setting o f sepsis shock. She responded to IV fluids. Currently, she is extubated and today she is to have tr acheostomy. The patient was found to have electrolyte imbalance with hypernatremia, which resolved a fter adjustment of IV fluids and TPN. Review of Systems: The patient is lethargic. Answers some questions, but cannot provide review of systems. Physical Examination: Heart: S1 and S2. Abdomen: Soft, benign. Extremities: Trace edema. Impression And Plan: 1.Acute kidney injury secondary to cardiorenal syndrome, complicated by acute tubular necrosis. Rufino al function improved. Acute kidney injury resolved. 2.Hypokalemia, hypophosphatemia, hypomagnesemia. Continue total parenteral nutrition. 3.Hypertension, controlled, optimum. 4.Anasarca, resolved. Diuretic, we will use as needed. 5.Respiratory failure. The patient is undergoing procedure to place a trach tube. 6.Hypercalcemia. Monitor electrolytes, albumin and calcium. Adjust the total parenteral nutrition as needed. EB/MODL Voice ID: [id number] Report ID: [id number]
[2023-06-04] MEDS: CEFEPIME 2 GM in NA CHLORIDE 0.9% 100 ML IV SCH ×3 (01:55→17:09)
[2023-06-04] MEDS ORDERED: CEFEPIME 1 GM/VIAL ONE (04:26)
[2023-06-04] MEDS ORDERED: NA CHLORIDE 0.9% 100 ML ONE ×4 (04:27→22:08)
[2023-06-04] MEDS ORDERED: CEFEPIME 2 GM VIAL ONE ×3 (04:28→16:45)
[2023-06-04] MEDS ORDERED: LORazepam 2 MG/ML VIAL ONE ×3 (05:19→22:09)
[2023-06-04] MEDS: LORazepam 2 MG/ML VIAL IV PRN ×4 (05:47→21:58)
[2023-06-04 06:09] LABS: Absolute Lymphocytes (CBC) 0.7 K/uL (0.7-4.9); Hematocrit 23.2 % (36.0-45.0); Lymphocytes % 12.2 % (15.3-44.8); MCV 93.3 fL (80-100); MPV 8.1 fL (7.6-11.3); Platelets 203 thou/uL (152-406); RBC Red Blood Cell Count 2.48 M/uL (3.86-4.86)
[2023-06-04 07:04] LABS: Albumin 1.6 g/dL (3.4-5.0); Bilirubin Total 0.6 mg/dL (0.2-1.0); Magnesium 1.8 mg/dL (1.6-2.4); Phosphorus 3.2 mg/dL (2.5-4.9); Potassium 3.3 mEq/L (3.5-5.1); Protein, Total 5.4 g/dL (6.4-8.2)
[2023-06-04] MEDS ORDERED: KCL 20 MEQ/100 mL IVPB 20 MEQ/100 ML BAG IV SCH (08:00)
[2023-06-04] MEDS ORDERED: NA CHLORIDE 0.9% 0 ML ONE (08:18)
[2023-06-04] MEDS ORDERED: KCL 20 MEQ/100 mL IVPB 100 ML IV ONE (08:19)
[2023-06-04] MEDS: PANTOPRAZOLE 40 MG INJ IVP SCH ×2 (08:24→21:57)
[2023-06-04] MEDS ORDERED: LEVETIRACETAM 500 MG/5 ML VIAL IV ONE ×2 (08:24→22:07)
[2023-06-04] MEDS: levETIRAcetam 500 MG in NA CHLORIDE 0.9% 100 ML IV SCH ×2 (08:25→21:56)
[2023-06-04] MEDS: DEXMEDETOMIDINE HCL 1,000 MCG in NA CHLORIDE 0.9% 490 ML IV SCH (08:38)
--- NOTE | 2023-06-04 08:44 | P.PN ---
Date of Service: 06/04/23 Chief Complaint: Respiratory failure Subjective: s/p trach placement yesterday. ROS unable to obtain, patient sedated and mechanically ventilated. No acute events overnight. Physical Examination Temp Pulse Resp BP Pulse Ox 97.7 F 52 13 140/76 100 06/04/23 07:00 06/04/23 07:00 06/04/23 07:00 06/04/23 07:00 06/04/23 07:00 General: In no apparent distress. HEENT: Atraumatic, Normocephalic. Tracheostomy. Respiratory: Trach. mechanical ventilation Cardiovascular: Regular rate and rhythm. Trace BLE edema. Gastrointestinal: Abdominal surgical incision sites with ARMIN drains x 3. Integumentary: Abdominal surgical dressing is clean dry and intact. ARMIN drains with minimal output. Urinary: Carl catheter noted. Laboratory Data - Reviewed Microbiology Data - Reviewed Imagings Data: - CT abdomen pelvis 05/18: ": Bibasilar lung consolidations are present posteriorly which may represent infiltrate or atelectasis. There is no evidence of intra- abdominal or intrapelvic abscess collection. Small moderate left inguinal hernia containing nonobstructed small bowel." - XR Chest 05/23: "Patchy bibasilar opacities, left greater than right (atelectasis and/or infiltrate)." - CT head spine wo contrast 05/23: "No acute intracranial or extra-axial abnormality. No acute cervical spine injury." - XR Chest 05/29: "The lungs are grossly clear. The heart is normal in size. No displaced fractures.Left-sided venous catheter has tip in the SVC. Enteric tube descends into the upper abdomen." - XR KUB 05/29: "Tip of the enteric tube is in the stomach. Skin tory are noted along the midline. Several drainage catheters are seen. Mildly prominent central small bowel loops identified." - CTA Chest 05/30: " Negative for a pulmonary embolism. Right lower lobe atelectasis. Mild bilateral pulmonary opacities may represent mild interstitial pulmonary edema. Esophageal dilatation" - CT abdomen pelvis w contrast 05/30: ": 4 centimeter subcapsular splenic hematoma mildly diminished in size. 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 Foster on 05/05. - Blood cultures 05/05: No growth to date - Repeat blood culture 05/11: No growth 24 hours - Urine culture 05/06: No growth to date - Pus drainage from midline abdominal incision site by Dr. Foster at bedside 05/13 - CT abdomen pelvis 05/18: ": Bibasilar lung consolidations are present posteriorly which may represent infiltrate or atelectasis. There is no evidence of intra- abdominal or intrapelvic abscess collection. Small moderate left inguinal hernia containing nonobstructed small bowel." - Fluconazole started 05/11 due to high risk/concern for superimposed fungal infection, patient also on TPN. Switched to Micafungin on 05/20 - Completed 14 days Vancomycin and Meropenem Acute Hypoxic Respiratory Failure - pulmonology following - sputum culture 05/11: Pseudomonoas aeruginosa - Treated with Meropenem IV. - Extubated 05/21 - XR Chest 05/29: "The lungs are grossly clear. The heart is normal in size. No displaced fractures.Left-sided venous catheter has tip in the SVC. Enteric tube descends into the upper abdomen." - 05/29: patient became hypoxic, hypotensive and tachycardic and was subsequently intubated - Sputum culture 05/31: Pseudomonoas aeruginosa - Resistant to meropenem. Started on Cefepime 06/02 Catheter-Associated Urinary Tract Infection - Urine culture 05/30: Pseudomonoas aeruginosa - resistant to meropenem. - on Cefepime (started 06/02) Anti-Infective Agents - Cefepime (06/02-) - Vancomycin (05/06-05/16) (05/19-06/04) - Micafungin (05/20-06/03) - Meropenem (05/06-05/24), (05/30-06/03) Recommendations - sputum and urine culture growing Pseudomonoas aeruginosa resistant to meropenem. Started on Cefepime 06/02. - Continue Cefepime for 10 days (06/02 to 06/16) - Abdominal surgical site wound care per surgery team - Monitor WBC and fever trends - Pressure offloading measures. Turn patient q2h, wedge pillow, low air-loss mattress. Apply barrier cream to sacrum/buttocks - Seizure precautions Case discussed with Bam Kaye
--- NOTE | 2023-06-04 10:55 | OP ---
Date of Procedure: 06/03/2023 Surgeon: RHEA MCDONALD Preoperative Diagnosis: Respiratory failure, intolerant to endotracheal tube and ventilation. Postoperative Diagnosis: Respiratory failure, intolerant to endotracheal tube and ventilation. Procedure: Open tracheostomy under general sedation. Anesthesia: General. IV sedation was administered. I also infiltrated approximately 10 mL of 1% lidocaine with 1:100,000 epinephrine over the incision site. Estimated Blood Loss: Less than 5 mL. Specimens: None. Findings: Adequate palpable laryngeal landmarks. Palpable cricoid cartilage and well-defined tracheal rings. Complications: None. Disposition: Stable. The patient tolerated the procedure well. Indication For Procedure: The patient is a 48-year-old female, who was admitted and surgically treated for esophageal perforation. She had been intubated and was tolerating the ventilation machine and then she was extubated several times and she had to be reintubated due to oxygen desaturation and inability to be weaned from the ventilation machine. Thus, these were indications to bring the patient to operative suite for the above-mentioned procedures. Consent was signed and placed on the chart. Description Of Procedure: The patient was transferred from the intensive care unit to the operating room by anesthesiologist and nursing staff. The patient was then transferred to the operating room table supine and then sedated in normal fashion. I infiltrated approximately 10 mL of 1% lidocaine with 1:100,000 epinephrine over the neck incision site and the patient was sterilely prepped and draped. After marking the sternal notch and the cricoid cartilage, I made a horizontal incision just inferior to the cricoid cartilage with a #15 blade scalpel through the skin and subcutaneous tissue. I then switched to monopolar electrocautery and dissected down to the strap muscles as the platysma was dehiscent. There was no evidence of platysma in midline. Once down to the strap muscles, I then divided in midline with hemostats, DeBakey, and Metzenbaum scissors. Once down to the cricoid cartilage, I then alerted Anesthesia to deflate the cuff and pull back slightly and then I inserted the cricoid hook at the inferior edge of the cricoid cartilage and retracted the airway superiorly. I was then able to use peanuts to delineate the tracheal rings. Once I located the space between the second and third tracheal rings, I then alerted Anesthesia to deflate the ET cuff, and pull back the endotracheal tube further until I had some room to insert the tracheostomy tube. The incision was made with a #15 blade scalpel. An airway was defined. I then used a tracheal gang leader to open up the airway and then I inserted the size 8 tracheostomy tube into the opening and removed the stylet and inserted the cannula and then connected the tube to the oxygen circuit. While the cricoid hook was still in place, I then secured the flanges of the tracheostomy tube with 2.0 silk suture to the neck skin, and then a Velcro trach collar was placed around the neck and sutured to itself. The cricoid hook was removed and the patient tolerated the procedure well. She will be transferred back to the intensive care unit and hopefully will be weaned off the ventilator soon. A stat PA and lateral chest x-ray showed that the endotracheal tube was in proper position. ALAINA/JIMMIE Voice ID: [id number] Report ID: [id number] ELENI
[2023-06-04] MEDS ORDERED: VANCOMYCIN 1.5 GM in Dextrose 5%-Water 500 ML IVPB SCH (12:00)
--- NOTE | 2023-06-04 15:30 | P.PN ---
Subjective Date of Service: 06/04/23 Chief Complaint: GI bleed, Gastric perforation Patient is awake and interactive but nonverbal. Status post trach this morning. Currently on the vent. No seizures. NG tube outputs- brown colored, no fresh blood. Physical Examination - Vital Signs Temperature: 97.7 F Blood Pressure: 142/79 Pulse: 65 Respirations: 21 Pulse Ox (%): 99 Assessment And Plan - Plan Physical exam: GEN: Awake, NAD. HEENT: Normal conjunctiva, sclera anicteric Neck: Tracheostomy in place. CV: Regular rate and rhythm, trace b/l pedal edema Pulm: diminished at bases bilaterally, bilateral crackles. 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 S/P repair 05/05 Acute blood loss anemia secondary to above Hypovolemic shock secondary to GI bleed UTI, MDR Pseudomonas Aeruginosa Acute hypoxic respiratory failure/acute lung injury Acetaminophen toxicity JERI secondary to acute blood loss anemia, hypotension/prerenal state Hypoglycemia Malnutrition/hypoalbuminemia Bipolar disorder/depression/anxiety Seizures/metabolic encephalopathy 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 (05/05) Dr. Foster discussed with bariatric surgeons - not much options, need to wait many months before would attempt any further intra-abdominal procedures ARMIN drains still in place with minimal to no output J-tube Feeding dc'd due to leak/ nonfunctioning; suspected pulled out partially while patient was moving around/restless last week NG tube draining dark blood 05/30. Now draining brown-colored fluid. She is on vancomycin and micafungin. Continue TPN at the current rate. Total 12 units PRBC transfused. HGB 8.5 -> 8.3 (06/03) Was on continuous PPI IV after episode of GI bleeding last week transitioned to IV BID dosing 05/31 Serial abdominal examination given CT abd/pelvis (05/30) showing 4 cm subcapsular splenic hematoma mildly diminished in size UTI, MDR Pseudomonas Aeruginosa Blood cx (05/18): No growth; Blood cx (05/30): NGTD Urine cx (05/30): Pseudomonas Aeruginosa sputum cx (05/31): Pseudomonas Aeruginosa CT chest/abd (05/18) with no obvious infectious findings-atelectasis vs infiltrate CTA chest (05/30): with RLL atelectasis, mild b/l pulm opacities, esophageal dilation. no PE. Anti-Infective Agents - Meropenem (05/06-05/24), (05/30-06/03) - Vancomycin (05/06-05/16) (05/19-) - Micafungin (05/20-) Continue with Micafungin / Vancomycin for 2 weeks total per ID (05/20-06/03) continue cefepime for 2 weeks total per ID (06/02-06/16) repeat urine and sputum culture 05/30 grew Pseudomonas Aeruginosa again, resistant to merrem merrem switched to cefepime given culture sensitivity 06/02 afebrile, leukocytosis resolved Acute hypoxic respiratory failure/acute lung injury Patient extubated to oxygen by nasal cannula 05/21 re intubated overnight 05/29 for hypoxic respiratory failure CTA chest (05/30): No PE. RLL atelectasis, Mild bilateral pulmonary opacities, esophageal dilation unclear etiology, atelectasis vs mucous/blood clot plug doing well, plan for trach on 06/03; ENT consulted; family updated and agreed pulm out of town until 06/15 Initial Sputum culture grew Pseudomonas and completed 2 week course of merrem, however sputum growing pseudomonas again, now resistant to merrem (06/02) ENT recommended cuffed tracheostomy to reduce risk of aspiration. Tracheostomy placed 06/04/23. Acetaminophen toxicity Patient completed acetylcysteine IV infusion for APAP toxicity. Resolved. JERI secondary to acute blood loss anemia, hypotension/prerenal state Hypoglycemia Malnutrition/hypoalbuminemia JERI resolved. Nephrology is following. Continue TPN. Monitor renal function. Monitor and optimize electrolytes. Fingerstick glucose monitoring. Anasarca Improved. Intermittent Lasix and albumin as needed. Thrombocytopenia Resolved. Peripheral blood smear was not informative. No anticoagulation given intermittent anemia requiring blood transfusions. Bipolar disorder/depression/anxiety Hold oral meds given n.p.o. status. Seizures/metabolic encephalopathy Case discussed with neurology Dr. Cameron. Seizures likely metabolic related per Dr. Cameron. IV Keppra recommended. Patient placed on IV Keppra 500 mg twice daily. No further seizures thus far Suspected hypoxic encephalopathy. Neurology consulted for long-term antiseizure medications given that patient will be on prolonged n.p.o. status. VTE: SCD Code: Full Dispo: Social service is exploring disposition LTAC option.
[2023-06-04] MEDS ORDERED: FUROSEMIDE 40 MG/4 ML VIAL IV ONE (16:00)
[2023-06-04] MEDS ORDERED: SODIUM ACETATE IV SCH ×13 (17:00)
[2023-06-04] MEDS ORDERED: CALCIUM CHLORIDE IV SCH ×13 (17:00)
[2023-06-04] MEDS ORDERED: DEXTROSE 20% IV SCH ×13 (17:00)
[2023-06-04] MEDS ORDERED: [UNRECOGNIZED DRUG - OTHER] IV SCH ×6 (17:00)
[2023-06-04] MEDS ORDERED: AMINO ACIDS IV SCH ×13 (17:00)
[2023-06-04] MEDS ORDERED: [UNRECOGNIZED DRUG - OTHER] IV SCH ×7 (17:00)
[2023-06-04] MEDS ORDERED: FUROSEMIDE 40 MG/4 ML VIAL ONE (17:29)
--- NOTE | 2023-06-04 19:34 | PN ---
Date of Progress Note: 06/04/2023 Subjective: Patient was admitted to the hospital with perforated viscus. The patient has been havin g acute kidney injury secondary to cardiorenal, anasarca. Patient did not require any renal replacem ent therapy. Patient required intubation and extubation. Objective: Vital Signs: Blood pressure 142/79, pulse of 65, afebrile. Patient had urine output of 2600, positive of 1400. Chest: Decreased entry bilateral base. Heart: S1, S2. Regular. Abdomen: Soft, nontender. Extremities: Trace edema. Neuro: Patient on vent. Laboratory Data: Hemoglobin 7.6, sodium 138, potassium 3.3, bicarb 22, BUN 19, creatinine 0.4, calci um of 8, phosphorus 3.2, magnesium 1.6. Current Medications: The patient on, it includes: 1.Cefepime. 2.Diphenhydramine. 3.TPN. 4.Labetalol. 5.Keppra. 6.Zofran. Assessment And Plan: 1.Acute kidney injury secondary to cardiorenal, recovered, resolved. Patient is slightly on the ove rvolume side. I am going to give the patient a single dose of Lasix today and we will follow up the patient. 2.Hypertension, controlled, optimal. 3.Electrolyte imbalance. We will adjust TPN. 4.Perforated viscus, as by Primary. LISA/JIMMIE Voice ID: [id number] Report ID: [id number]
[2023-06-05] MEDS: LORazepam 2 MG/ML VIAL IV PRN ×4 (00:36→23:37)
[2023-06-05] MEDS: CEFEPIME 2 GM in NA CHLORIDE 0.9% 100 ML IV SCH ×3 (00:36→16:58)
[2023-06-05] MEDS ORDERED: LORazepam 2 MG/ML VIAL ONE ×3 (00:43→23:51)
[2023-06-05] MEDS ORDERED: CEFEPIME 2 GM VIAL ONE ×4 (00:43→21:09)
[2023-06-05] MEDS ORDERED: NA CHLORIDE 0.9% 100 ML ONE ×2 (00:43→17:09)
[2023-06-05] MEDS: FENTANYL CITR 100 MCG/2 ML IV PRN ×2 (01:44→19:12)
[2023-06-05] MEDS ORDERED: FENTANYL CITR 100 MCG/2 ML ONE (01:59)
[2023-06-05] MEDS ORDERED: HYDROMORPHONE HCL 2 MG/ML inj ONE (03:25)
[2023-06-05] MEDS: HYDROMORPHONE HCL 2 MG/ML inj IV PRN ×5 (03:34→22:28)
[2023-06-05 04:57] LABS: Absolute Lymphocytes (CBC) 0.9 K/uL (0.7-4.9); Hematocrit 22.5 % (36.0-45.0); Lymphocytes % 18.4 % (15.3-44.8); MPV 8.1 fL (7.6-11.3); Platelets 173 thou/uL (152-406); RBC Red Blood Cell Count 2.44 M/uL (3.86-4.86)
[2023-06-05] MEDS: DEXMEDETOMIDINE HCL 1,000 MCG in NA CHLORIDE 0.9% 490 ML IV SCH (05:42)
--- NOTE | 2023-06-05 09:01 | P.PN ---
Date of Service: 06/05/23 Chief Complaint: Respiratory failure Subjective: No acute events overnight. Working with physical therapy up at side of bed. In no apparent distress. Physical Examination Temp Pulse Resp BP Pulse Ox 97.7 F 69 16 150/97 H 100 06/05/23 07:00 06/05/23 08:00 06/05/23 08:00 06/05/23 08:00 06/05/23 08:00 General: In no apparent distress. HEENT: Atraumatic, Normocephalic. Tracheostomy. NG tube. Respiratory: Trach. mechanical ventilation. + rhonchi. Cardiovascular: Regular rate and rhythm. Trace BLE edema. Gastrointestinal: Abdominal surgical incision sites with ARMIN drains x 3. Integumentary: Abdominal surgical site. Serosanguinous drainage from around trach site. Urinary: Carl catheter noted. Laboratory Data - Reviewed Microbiology Data - Reviewed Imagings Data: - CT abdomen pelvis 05/18: ": Bibasilar lung consolidations are present posteriorly which may represent infiltrate or atelectasis. There is no evidence of intra- abdominal or intrapelvic abscess collection. Small moderate left inguinal hernia containing nonobstructed small bowel." - XR Chest 05/23: "Patchy bibasilar opacities, left greater than right (atelectasis and/or infiltrate)." - CT head spine wo contrast 05/23: "No acute intracranial or extra-axial abnormality. No acute cervical spine injury." - XR Chest 05/29: "The lungs are grossly clear. The heart is normal in size. No displaced fractures.Left-sided venous catheter has tip in the SVC. Enteric tube descends into the upper abdomen." - XR KUB 05/29: "Tip of the enteric tube is in the stomach. Skin tory are noted along the midline. Several drainage catheters are seen. Mildly prominent central small bowel loops identified." - CTA Chest 05/30: " Negative for a pulmonary embolism. Right lower lobe atelectasis. Mild bilateral pulmonary opacities may represent mild interstitial pulmonary edema. Esophageal dilatation" - CT abdomen pelvis w contrast 05/30: ": 4 centimeter subcapsular splenic hematoma mildly diminished in size. 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 Foster on 05/05. - Blood cultures 05/05: No growth to date - Repeat blood culture 05/11: No growth 24 hours - Urine culture 05/06: No growth to date - Pus drainage from midline abdominal incision site by Dr. Foster at bedside 05/13 - CT abdomen pelvis 05/18: ": Bibasilar lung consolidations are present posteriorly which may represent infiltrate or atelectasis. There is no evidence of intra- abdominal or intrapelvic abscess collection. Small moderate left inguinal hernia containing nonobstructed small bowel." - Fluconazole started 05/11 due to high risk/concern for superimposed fungal infection, patient also on TPN. Switched to Micafungin on 05/20 - Completed 14 days Vancomycin and Meropenem Acute Hypoxic Respiratory Failure - pulmonology following - sputum culture 05/11: Pseudomonoas aeruginosa - Treated with Meropenem IV. - Extubated 05/21 - XR Chest 05/29: "The lungs are grossly clear. The heart is normal in size. No displaced fractures.Left-sided venous catheter has tip in the SVC. Enteric tube descends into the upper abdomen." - 05/29: patient became hypoxic, hypotensive and tachycardic and was subsequently intubated - Sputum culture 05/31: Pseudomonoas aeruginosa - Resistant to meropenem. Started on Cefepime 06/02 Catheter-Associated Urinary Tract Infection - Urine culture 05/30: Pseudomonoas aeruginosa - resistant to meropenem. - on Cefepime (started 06/02) Anti-Infective Agents - Cefepime (06/02-) - Vancomycin (05/06-05/16) (05/19-06/04) - Micafungin (05/20-06/03) - Meropenem (05/06-05/24), (05/30-06/03) Recommendations - sputum and urine culture growing Pseudomonoas aeruginosa resistant to meropenem. Started on Cefepime 06/02. - Continue Cefepime for 10 days (06/02 to 06/16) - Abdominal surgical site wound care per surgery team - Monitor WBC and fever trends - Pressure offloading measures. Turn patient q2h, wedge pillow, low air-loss mattress. Apply barrier cream to sacrum/buttocks - Seizure precautions Case discussed with Bam Kaye
[2023-06-05] MEDS ORDERED: NA CHLORIDE 0.9% 200 ML ONE ×2 (09:28→21:09)
[2023-06-05] MEDS ORDERED: LEVETIRACETAM 500 MG/5 ML VIAL IV ONE ×2 (09:28→21:09)
[2023-06-05] MEDS: KCL 20 MEQ/100 mL IVPB 20 MEQ/100 ML BAG IV SCH ×2 (09:29→11:41)
[2023-06-05] MEDS: PANTOPRAZOLE 40 MG INJ IVP SCH ×2 (09:29→20:57)
[2023-06-05] MEDS: levETIRAcetam 500 MG in NA CHLORIDE 0.9% 100 ML IV SCH ×2 (09:29→20:57)
--- NOTE | 2023-06-05 11:08 | PN ---
Date of Progress Note: 06/05/2023 Subjective: The patient was admitted with perforated viscus. The patient had respiratory failure. The patient intubated. The patient had acute kidney injury secondary to cardiorenal with anasarca. The patient being diuresed, did not require any renal replacement therapy. Objective: Vital Signs: Blood pressure 150/97, afebrile. Chest: Faint rales in the base. Heart: S1, S2. Systolic murmur. Abdomen: Soft, nontender. Extremity: Trace edema. Neurologic: Alert. No focality. Laboratory Data: Hemoglobin 7.4, sodium 141, potassium 3, bicarb 26, BUN 19, creatinine 0.4, calcium of 8. Current Medications: The patient on, it includes: 1. Cefepime. 2. Hydralazine. 3. Labetalol. 4. TPN. 5. Keppra. 6. Patient received 1 dose of Lasix yesterday. Had good urine output of 2600, patient negative of 600. Assessment And Plan: 1. Acute kidney injury secondary to cardiorenal, recovered, resolved, still slightly on the overvolume side. I am going to give her another dose of Lasix today and we will follow up. 2. Hypertension, controlled, optimal. Keep utilizing the blood pressure to establish better volume control. 3. Anemia secondary to gastrointestinal bleed, p.r.n. transfusion. Currently, stable. 4. Hypokalemia. I am going to go ahead and adjust the TPN. Continue p.r.n. supplement. time spend exam the patient face to face reviewing data lab and radiology , placing order discussing the case with [facility] nursing staff , discussing with the hospitalist >35 min NATALIIA Voice ID: [id number] Report ID: [id number] ELENI
[2023-06-05] MEDS ORDERED: FUROSEMIDE 40 MG TABLET PO ONE (11:15)
[2023-06-05] MEDS ORDERED: FUROSEMIDE 40 MG/4 ML VIAL ONE (11:55)
[2023-06-05] MEDS ORDERED: FUROSEMIDE 40 MG/4 ML VIAL IV ONE (12:00)
--- NOTE | 2023-06-05 12:35 | P.PN ---
Subjective Date of Service: 06/05/23 Chief Complaint: GI bleed, Gastric perforation Patient is awake and interactive, intermittently obeying instructions. Stable on trach-vent. He is tolerating SIMV. No seizures. She was up sitting at the edge of the bed with therapy today. Physical Examination - Vital Signs Temperature: 97.7 F Blood Pressure: 156/81 Pulse: 66 Respirations: 12 Pulse Ox (%): 100 Assessment And Plan - Plan Physical exam: GEN: Awake, NAD. HEENT: Normal conjunctiva, sclera anicteric Neck: Tracheostomy in place. CV: Regular rate and rhythm, trace b/l pedal edema Pulm: diminished at bases bilaterally, bilateral crackles. 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 S/P repair 05/05 Acute blood loss anemia secondary to above Hypovolemic shock secondary to GI bleed UTI, MDR Pseudomonas Aeruginosa Acute hypoxic respiratory failure/acute lung injury Acetaminophen toxicity JERI secondary to acute blood loss anemia, hypotension/prerenal state Hypoglycemia Malnutrition/hypoalbuminemia Bipolar disorder/depression/anxiety Seizures/metabolic encephalopathy 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 (05/05) Dr. Foster discussed with bariatric surgeons - not much options, need to wait many months before would attempt any further intra-abdominal procedures ARMIN drains still in place with minimal to no output J-tube Feeding dc'd due to leak/ nonfunctioning; suspected pulled out partially while patient was moving around/restless last week NG tube draining dark blood 05/30. Now draining brown-colored fluid. She is on vancomycin and micafungin. Continue TPN at the current rate. Total 12 units PRBC transfused. Hemoglobin is trending down again. Monitor and transfuse for hemoglobin less than 7. Was on continuous PPI IV after episode of GI bleeding last week Transitioned to IV BID dosing 05/31. Continue IV Protonix. Serial abdominal examination given CT abd/pelvis (05/30) showing 4 cm subcapsular splenic hematoma mildly diminished in size. UTI, MDR Pseudomonas Aeruginosa Blood cx (05/18): No growth; Blood cx (05/30): NGTD Urine cx (05/30): Pseudomonas Aeruginosa sputum cx (05/31): Pseudomonas Aeruginosa CT chest/abd (05/18) with no obvious infectious findings-atelectasis vs infiltrate CTA chest (05/30): with RLL atelectasis, mild b/l pulm opacities, esophageal dilation. no PE. Anti-Infective Agents - Meropenem (05/06-05/24), (05/30-06/03) - Vancomycin (05/06-05/16) (05/19-) - Micafungin (05/20-) Continue with Micafungin / Vancomycin for 2 weeks total per ID (05/20-06/03) continue cefepime for 2 weeks total per ID (06/02-06/16) repeat urine and sputum culture 05/30 grew Pseudomonas Aeruginosa again, resistant to merrem merrem switched to cefepime given culture sensitivity 06/02 afebrile, leukocytosis resolved. Patient completed vancomycin/micafungin therapy. Currently on cefepime. Acute hypoxic respiratory failure/acute lung injury Patient extubated to oxygen by nasal cannula 05/21 re intubated overnight 05/29 for hypoxic respiratory failure CTA chest (05/30): No PE. RLL atelectasis, Mild bilateral pulmonary opacities, es ophageal dilation unclear etiology, atelectasis vs mucous/blood clot plug doing well, plan for trach on 06/03; ENT consulted; family updated and agreed pulm out of town until 06/15 Initial Sputum culture grew Pseudomonas and completed 2 week course of merrem, however sputum growing pseudomonas again, now resistant to merrem (06/02) ENT recommended cuffed tracheostomy to reduce risk of aspiration. Tracheostomy placed 06/04/23. Currently tolerating SIMV. Goal is to wean her off the vent. IV Lasix therapy per nephrology. Acetaminophen toxicity Patient completed acetylcysteine IV infusion for APAP toxicity. Resolved. JERI secondary to acute blood loss anemia, hypotension/prerenal state Hypoglycemia Malnutrition/hypoalbuminemia JERI resolved. Nephrology is following. Continue TPN. Monitor renal function. Monitor and optimize electrolytes. Fingerstick glucose monitoring. Anasarca Improved. Intermittent Lasix and albumin as needed. Thrombocytopenia Resolved. No anticoagulation given intermittent anemia requiring blood transfusions. Bipolar disorder/depression/anxiety Oral meds held given n.p.o. status. Seizures/metabolic encephalopathy Case discussed with neurology Dr. Cameron. Seizures likely metabolic related per Dr. Cameron. On IV Keppra per Dr. Cameron recommendation. No further seizures. Suspected hypoxic encephalopathy. Neurology consulted for long-term antiseizure medications given that patient will be on prolonged n.p.o. status. VTE: SCD Code: Full Dispo: Social service is exploring disposition LTAC option.
[2023-06-05] MEDS: MUPIROCIN 2% OINT 22GM TUBE TOP SCH (13:00)
[2023-06-05] MEDS ORDERED: POTASSIUM CL 40 MEQ in NA CHLORIDE 0.9% 500 ML IV SCH (13:00)
[2023-06-05] MEDS ORDERED: DEXTROSE IV SCH ×16 (17:00)
[2023-06-05] MEDS ORDERED: [UNRECOGNIZED DRUG - OTHER] IV SCH ×16 (17:00)
[2023-06-05] MEDS ORDERED: AMINO ACIDS IV SCH ×16 (17:00)
[2023-06-05] MEDS ORDERED: CALCIUM CHLORIDE IV SCH ×16 (17:00)
--- NOTE | 2023-06-05 18:11 | P.PN ---
Date of Service: 06/04/23 ENT PostOp Note S: Patient seen and examined. She is awake and alert and trying to communicate. Per nursing, she did well overnight with no evidence of active bleeding or hematoma from the surgical site. O: Tracheostomy tube is intact, ventilating well, with dried blood noted around the flanges. Trach collar intact. Impression: 1. Respiratory failure, history of gross aspiration, s/p open tracheostomy. Plan: 1. Respiratory therapy to clean inner cannula, suction, etc. 2. Trach change planned in 1-2 weeks.
[2023-06-05] MEDS: HYDRALAZINE HCL 20 MG/ML VIAL IV PRN (23:41)
[2023-06-05] MEDS ORDERED: LABETALOL 20 MG/4ML SYRINGE IV ONE (23:51)
[2023-06-05] MEDS ORDERED: HYDRALAZINE HCL 20 MG/ML VIAL ONE (23:55)
[2023-06-06] MEDS: CEFEPIME 2 GM in NA CHLORIDE 0.9% 100 ML IV SCH ×3 (01:08→17:44)
[2023-06-06] MEDS: LORazepam 2 MG/ML VIAL IV PRN ×4 (01:33→23:51)
[2023-06-06] MEDS ORDERED: LORazepam 2 MG/ML VIAL ONE ×3 (01:47→23:48)
[2023-06-06] MEDS: DEXMEDETOMIDINE HCL 1,000 MCG in NA CHLORIDE 0.9% 490 ML IV SCH ×3 (03:27→20:40)
[2023-06-06] MEDS: HYDROMORPHONE HCL 2 MG/ML inj IV PRN ×3 (04:46→19:32)
[2023-06-06] MEDS ORDERED: HYDROMORPHONE HCL 2 MG/ML inj ONE ×2 (05:00→23:48)
[2023-06-06 07:16] LABS: Absolute Lymphocytes (CBC) 0.7 K/uL (0.7-4.9); Hematocrit 25.9 % (36.0-45.0); Lymphocytes % 13.5 % (15.3-44.8); MCV 92.4 fL (80-100); MPV 8.2 fL (7.6-11.3); Platelets 177 thou/uL (152-406)
[2023-06-06 07:31] LABS: Albumin 1.8 g/dL (3.4-5.0); Bilirubin Total 0.5 mg/dL (0.2-1.0); Magnesium 1.9 mg/dL (1.6-2.4); Phosphorus 3.2 mg/dL (2.5-4.9); Potassium 3.4 mEq/L (3.5-5.1); Protein, Total 6.4 g/dL (6.4-8.2)
--- NOTE | 2023-06-06 09:19 | P.PN ---
Date of Service: 06/06/23 Chief Complaint: Respiratory failure Subjective: Patient seen and examined at bedside. In no apparent distress, awake, following commands intermittently. Overnight, patient pulled out her NG tube. Physical Examination Temp Pulse Resp BP Pulse Ox 97.8 F 90 19 153/106 H 100 06/06/23 04:00 06/06/23 06:00 06/06/23 06:00 06/06/23 06:00 06/06/23 06:00 General: In no apparent distress. HEENT: Atraumatic, Normocephalic. Tracheostomy. Respiratory: Trach. mechanical ventilation. + rhonchi. Cardiovascular: Regular rate and rhythm. No edema. Gastrointestinal: Abdominal surgical incision sites. Non-distended. Soft. Integumentary: Abdominal surgical site dressing is clean dry and intact. ARMIN drains x3 with minimal serous drainage. Serosanguinous drainage from around trach site. Urinary: Carl catheter noted. Laboratory Data - Reviewed Microbiology Data - Reviewed Imagings Data: - CT abdomen pelvis 05/18: ": Bibasilar lung consolidations are present posteriorly which may represent infiltrate or atelectasis. There is no evidence of intra- abdominal or intrapelvic abscess collection. Small moderate left inguinal hernia containing nonobstructed small bowel." - XR Chest 05/23: "Patchy bibasilar opacities, left greater than right (atelectasis and/or infiltrate)." - CT head spine wo contrast 05/23: "No acute intracranial or extra-axial abnormality. No acute cervical spine injury." - XR Chest 05/29: "The lungs are grossly clear. The heart is normal in size. No displaced fractures.Left-sided venous catheter has tip in the SVC. Enteric tube descends into the upper abdomen." - XR KUB 05/29: "Tip of the enteric tube is in the stomach. Skin tory are noted along the midline. Several drainage catheters are seen. Mildly prominent central small bowel loops identified." - CTA Chest 05/30: " Negative for a pulmonary embolism. Right lower lobe atelectasis. Mild bilateral pulmonary opacities may represent mild interstitial pulmonary edema. Esophageal dilatation" - CT abdomen pelvis w contrast 05/30: ": 4 centimeter subcapsular splenic hematoma mildly diminished in size. 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 Foster on 05/05. - Blood cultures 05/05: No growth to date - Repeat blood culture 05/11: No growth 24 hours - Urine culture 05/06: No growth to date - Pus drainage from midline abdominal incision site by Dr. Foster at bedside 05/13 - CT abdomen pelvis 05/18: ": Bibasilar lung consolidations are present posteriorly which may represent infiltrate or atelectasis. There is no evidence of intra- abdominal or intrapelvic abscess collection. Small moderate left inguinal hernia containing nonobstructed small bowel." - Fluconazole started 05/11 due to high risk/concern for superimposed fungal infection, patient also on TPN. Switched to Micafungin on 05/20 - Completed 14 days Vancomycin and Meropenem Acute Hypoxic Respiratory Failure - pulmonology following - sputum culture 05/11: Pseudomonoas aeruginosa - Treated with Meropenem IV. - Extubated 05/21 - XR Chest 05/29: "The lungs are grossly clear. The heart is normal in size. No displaced fractures.Left-sided venous catheter has tip in the SVC. Enteric tube descends into the upper abdomen." - 05/29: patient became hypoxic, hypotensive and tachycardic and was subsequently intubated - Sputum culture 05/31: Pseudomonoas aeruginosa - Resistant to meropenem. Started on Cefepime 06/02 Catheter-Associated Urinary Tract Infection - Urine culture 05/30: Pseudomonoas aeruginosa - resistant to meropenem. - on Cefepime (started 06/02) Anti-Infective Agents - Cefepime (06/02-) - Vancomycin (05/06-05/16) (05/19-06/04) - Micafungin (05/20-06/03) - Meropenem (05/06-05/24), (05/30-06/03) Recommendations - sputum and urine culture growing Pseudomonoas aeruginosa resistant to meropenem. Started on Cefepime 06/02. - Continue Cefepime for 10 days (06/02 to 06/12) - PICC Line placed 06/03 - Abdominal surgical site wound care per surgery team - Monitor WBC and fever trends - Pressure offloading measures. Turn patient q2h, wedge pillow, low air-loss mattress. Apply barrier cream to sacrum/buttocks - Seizure precautions Case discussed with Bam Kaye
[2023-06-06] MEDS: KCL 20 MEQ/100 mL IVPB 20 MEQ/100 ML BAG IV SCH ×2 (09:30→11:56)
[2023-06-06] MEDS: PANTOPRAZOLE 40 MG INJ IVP SCH ×2 (09:38→21:40)
[2023-06-06] MEDS: levETIRAcetam 500 MG in NA CHLORIDE 0.9% 100 ML IV SCH ×2 (09:39→21:40)
[2023-06-06] MEDS ORDERED: CEFEPIME 2 GM VIAL ONE ×2 (09:50→17:41)
[2023-06-06] MEDS ORDERED: NA CHLORIDE 0.9% 200 ML ONE (09:51)
[2023-06-06] MEDS ORDERED: LEVETIRACETAM 500 MG/5 ML VIAL IV ONE ×2 (09:51→21:38)
[2023-06-06] MEDS: MUPIROCIN 2% OINT 22GM TUBE TOP SCH (10:19)
--- NOTE | 2023-06-06 13:11 | PN ---
Date of Progress Note: 06/06/2023 Subjective: The patient was admitted to the hospital with perforated viscus. Patient had acute kidn ey injury secondary to cardiorenal with anasarca. Patient did not require any renal replacement. Kenney dennis has intubation, extubation, intubation. The patient required massive transfusion. Objective: Vital Signs: Blood pressure of 153/106, pulse of 90. Patient had good urine output of 3 700, negative of 650. Chest: Decreased entry, bilateral base. Heart: S1, S2. Systolic murmur. Abdomen: Soft, nontender. Dressing clean. PEG tube. Extremities: +1 edema. Neurologic: Alert. No focality. Laboratory Data: WBC 5.4, hemoglobin 8.6, sodium 138, potassium 3.4, bicarb 24, BUN 19, creatinine 0 .5, calcium 8.3, phosphorus 3.2, magnesium 1.9. Current Medications: The patient on, it includes: Cefepime. Diphenhydramine. Labetalol. Keppra. Lorazepam. Lasix, received yesterday. Pantoprazole. TPN. Assessment And Plan: 1.Acute kidney injury secondary to cardiorenal, recovered, resolved, still on the wet side. I am go ing to give the patient extra dose of Lasix and we will follow up. 2.Hypertension, controlled, not optimal. We will follow up blood pressure after diuresis. 3.Respiratory failure secondary to pneumonia/congestive heart failure, overvolume. We will continue diuresis. 4.Deconditioning. Continue PT, OT. 5.Perforated viscus, as by Primary. LISA/LUZL Voice ID: [id number] Report ID: [id number]
--- NOTE | 2023-06-06 13:47 | P.PN ---
Subjective Date of Service: 06/06/23 Chief Complaint: GI bleed, Gastric perforation Patient is awake and interactive, intermittently obeying instructions. Stable on trach-vent. Nursing staff report patient respiratory rate was down to 6 on CPAP. She is back on SIMV. Nursing staff report patient pulled out her NG tube. No seizures. Physical Examination - Vital Signs Temperature: 97.8 F Blood Pressure: 153/106 Pulse: 57 Respirations: 19 Pulse Ox (%): 100 Assessment And Plan - Plan Physical exam: GEN: Awake, NAD. HEENT: Normal conjunctiva, sclera anicteric Neck: Tracheostomy in place. CV: Regular rate and rhythm, trace b/l pedal edema Pulm: diminished at bases bilaterally, bilateral crackles. ABD: Soft, nondistended Neuro: intubated, on vent, eyes open spontaneously, tracks, nods yes/no Carl in place (replaced 05/29) NGT in place LIWS central line Vitals reviewed Problem List 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 S/P repair 05/05 Acute blood loss anemia secondary to above Hypovolemic shock secondary to GI bleed UTI, MDR Pseudomonas Aeruginosa Acute hypoxic respiratory failure/acute lung injury Acetaminophen toxicity JERI secondary to acute blood loss anemia, hypotension/prerenal state Hypoglycemia Malnutrition/hypoalbuminemia Bipolar disorder/depression/anxiety Seizures/metabolic encephalopathy 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 (05/05) Dr. Foster discussed with bariatric surgeons - not much options, need to wait many months before would attempt any further intra-abdominal procedures ARMIN drains still in place with minimal to no output J-tube Feeding dc'd due to leak/ nonfunctioning; suspected pulled out partially while patient was moving around/restless last week Patient pulled out her NG tube. Cristian is aware and recommend to monitor and not to reinsert NG tube for now. She is on vancomycin and micafungin. Continue TPN at the current rate. Total 12 units PRBC transfused. Hemoglobin is trending down again. Monitor and transfuse for hemoglobin less than 7. Was on continuous PPI IV after episode of GI bleeding last week Transitioned to IV BID dosing 05/31. Continue IV Protonix. Serial abdominal examination given CT abd/pelvis (05/30) showing 4 cm subcapsular splenic hematoma mildly diminished in size. UTI, MDR Pseudomonas Aeruginosa Blood cx (05/18): No growth; Blood cx (05/30): NGTD Urine cx (05/30): Pseudomonas Aeruginosa sputum cx (05/31): Pseudomonas Aeruginosa CT chest/abd (05/18) with no obvious infectious findings-atelectasis vs infiltrate CTA chest (05/30): with RLL atelectasis, mild b/l pulm opacities, esophageal dilation. no PE. Anti-Infective Agents - Meropenem (05/06-05/24), (05/30-06/03) - Vancomycin (05/06-05/16) (05/19-) - Micafungin (05/20-) Completed Micafungin / Vancomycin for 2 weeks total per ID (05/20-06/03) continue cefepime for 2 weeks total per ID (06/02-06/16) repeat urine and sputum culture 05/30 grew Pseudomonas Aeruginosa again, resistant to merrem merrem switched to cefepime given culture sensitivity 06/02 afebrile, leukocytosis resolved. Currently on cefepime. Acute hypoxic respiratory failure/acute lung injury Patient extubated to oxygen by nasal cannula 05/21 re intubated overnight 05/29 for hypoxic respiratory failure CTA chest (05/30): No PE. RLL atelectasis, Mild bilateral pulmonary opacities, esophageal dilation unclear etiology, atelectasis vs mucous/blood clot plug doing well, plan for trach on 06/03; ENT consulted; family updated and agreed pulm out of town until 06/15 Initial Sputum culture grew Pseudomonas and completed 2 week course of merrem, however sputum growing pseudomonas again, now resistant to merrem (06/02) ENT recommended cuffed tracheostomy to reduce risk of aspiration. Tracheostomy placed 06/04/23. Currently tolerating SIMV. She did not tolerate CPAP so she remained on the vent. Goal is to wean the vent off. IV Lasix therapy per nephrology. Acetaminophen toxicity Patient completed acetylcysteine IV infusion for APAP toxicity. Resolved. JERI secondary to acute blood loss anemia, hypotension/prerenal state Hypoglycemia Malnutrition/hypoalbuminemia JERI resolved. Nephrology is following. Continue TPN. Monitor renal function. Monitor and optimize electrolytes. Fingerstick glucose monitoring. Anasarca Improved. Intermittent Lasix and albumin as needed. Thrombocytopenia Resolved. No anticoagulation given intermittent anemia requiring blood transfusions. Bipolar disorder/depression/anxiety Oral meds held given n.p.o. status. Seizures/metabolic encephalopathy Case discussed with neurology Dr. Cameron. Seizures likely metabolic related per Dr. Cameron. On IV Keppra per Dr. Cameron recommendation. No further seizures. Suspected hypoxic encephalopathy. VTE: SCD Code: Full Dispo: Social service is exploring disposition LTAC option vs SNF.
[2023-06-06] MEDS ORDERED: HYDRALAZINE HCL 20 MG/ML VIAL ONE (16:12)
[2023-06-06] MEDS: HYDRALAZINE HCL 20 MG/ML VIAL IV PRN (16:45)
[2023-06-06] MEDS ORDERED: AMINO ACIDS IV SCH ×7 (17:00)
[2023-06-06] MEDS ORDERED: [UNRECOGNIZED DRUG - OTHER] IV SCH ×7 (17:00)
[2023-06-06] MEDS ORDERED: CALCIUM CHLORIDE IV SCH ×7 (17:00)
[2023-06-06] MEDS ORDERED: SODIUM ACETATE IV SCH ×7 (17:00)
[2023-06-06] MEDS ORDERED: DEXTROSE 20% IV SCH ×7 (17:00)
[2023-06-06] MEDS ORDERED: NA CHLORIDE 0.9% 100 ML ONE ×2 (17:41→21:38)
[2023-06-06] MEDS: MAGNESIUM IV SCH ×5 (17:44)
[2023-06-06] MEDS: SODIUM ACETATE IV SCH ×5 (17:44)
[2023-06-06] MEDS: DEXTROSE IV SCH ×5 (17:44)
[2023-06-06] MEDS: AMINO ACIDS IV SCH ×5 (17:44)
[2023-06-06] MEDS: [UNRECOGNIZED DRUG - OTHER] IV SCH ×5 (17:44)
[2023-06-07] MEDS: HYDROMORPHONE HCL 2 MG/ML inj IV PRN ×4 (00:31→19:47)
[2023-06-07] MEDS ORDERED: NA CHLORIDE 0.9% 100 ML ONE ×2 (00:55→19:57)
[2023-06-07] MEDS ORDERED: CEFEPIME 2 GM VIAL ONE ×2 (00:55→09:03)
[2023-06-07] MEDS: CEFEPIME 2 GM in NA CHLORIDE 0.9% 100 ML IV SCH ×3 (01:01→16:51)
[2023-06-07 04:33] LABS: Albumin 1.8 g/dL (3.4-5.0); Bilirubin Total 0.5 mg/dL (0.2-1.0); Magnesium 1.9 mg/dL (1.6-2.4); Phosphorus 3.6 mg/dL (2.5-4.9); Potassium 4.2 mEq/L (3.5-5.1); Protein, Total 5.8 g/dL (6.4-8.2)
[2023-06-07] MEDS ORDERED: LORazepam 2 MG/ML VIAL ONE ×3 (05:37→16:50)
[2023-06-07] MEDS: LORazepam 2 MG/ML VIAL IV PRN ×4 (05:40→22:05)
[2023-06-07] MEDS ORDERED: HYDROMORPHONE HCL 2 MG/ML inj ONE ×2 (07:13→14:19)
[2023-06-07] MEDS: PANTOPRAZOLE 40 MG INJ IVP SCH ×2 (08:30→19:48)
--- NOTE | 2023-06-07 08:31 | P.PN ---
Date of Service: 06/07/23 Chief Complaint: Respiratory failure Subjective: Patient seen and examined at bedside. In no apparent distress. No acute events overnight. No new or worsening complaints at this time. Physical Examination Temp Pulse Resp BP Pulse Ox 97.2 F 50 14 132/78 100 06/07/23 06:00 06/07/23 07:00 06/07/23 07:47 06/07/23 07:00 06/07/23 07:47 General: Awake. In no apparent distress. Oriented x1-2. HEENT: Atraumatic, Normocephalic. Tracheostomy. Respiratory: Trach. mechanical ventilation. + rhonchi. Cardiovascular: Regular rate and rhythm. No edema. Gastrointestinal: Abdominal surgical incision sites. Non-distended. Soft. Integumentary: Abdominal surgical site dressing is clean dry and intact. ARMIN drains x3 with minimal serous drainage. Urinary: Carl catheter present Laboratory Data - Reviewed Microbiology Data - Reviewed Imagings Data: - CT abdomen pelvis 05/18: ": Bibasilar lung consolidations are present posteriorly which may represent infiltrate or atelectasis. There is no evidence of intra- abdominal or intrapelvic abscess collection. Small moderate left inguinal hernia containing nonobstructed small bowel." - XR Chest 05/23: "Patchy bibasilar opacities, left greater than right (atelectasis and/or infiltrate)." - CT head spine wo contrast 05/23: "No acute intracranial or extra-axial abnormality. No acute cervical spine injury." - XR Chest 05/29: "The lungs are grossly clear. The heart is normal in size. No displaced fractures.Left-sided venous catheter has tip in the SVC. Enteric tube descends into the upper abdomen." - XR KUB 05/29: "Tip of the enteric tube is in the stomach. Skin tory are noted along the midline. Several drainage catheters are seen. Mildly prominent central small bowel loops identified." - CTA Chest 05/30: " Negative for a pulmonary embolism. Right lower lobe atelectasis. Mild bilateral pulmonary opacities may represent mild interstitial pulmonary edema. Esophageal dilatation" - CT abdomen pelvis w contrast 05/30: ": 4 centimeter subcapsular splenic hematoma mildly diminished in size. 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 Foster on 05/05. - Blood cultures 05/05: No growth to date - Repeat blood culture 05/11: No growth 24 hours - Urine culture 05/06: No growth to date - Pus drainage from midline abdominal incision site by Dr. Foster at bedside 05/13 - CT abdomen pelvis 05/18: ": Bibasilar lung consolidations are present posteriorly which may represent infiltrate or atelectasis. There is no evidence of intra- abdominal or intrapelvic abscess collection. Small moderate left in guinal hernia containing nonobstructed small bowel." - Fluconazole started 05/11 due to high risk/concern for superimposed fungal infection, patient also on TPN. Switched to Micafungin on 05/20 - Completed 14 days Vancomycin and Meropenem Acute Hypoxic Respiratory Failure - pulmonology following - sputum culture 05/11: Pseudomonoas aeruginosa - Treated with Meropenem IV. - Extubated 05/21 - XR Chest 05/29: "The lungs are grossly clear. The heart is normal in size. No displaced fractures.Left-sided venous catheter has tip in the SVC. Enteric tube descends into the upper abdomen." - 05/29: patient became hypoxic, hypotensive and tachycardic and was subsequently intubated - Sputum culture 05/31: Pseudomonoas aeruginosa - Resistant to meropenem. Started on Cefepime 06/02 - Tracheostomy on 06/03 Catheter-Associated Urinary Tract Infection - Urine culture 05/30: Pseudomonoas aeruginosa. resistant to meropenem. - on Cefepime (started 06/02) Anti-Infective Agents - Cefepime (06/02-) - Vancomycin (05/06-05/16) (05/19-06/04) - Micafungin (05/20-06/03) - Meropenem (05/06-05/24), (05/30-06/03) Recommendations - sputum and urine culture growing Pseudomonoas aeruginosa resistant to meropenem. Started on Cefepime 06/02. - Continue Cefepime for 10 days (06/02 to 06/12) - PICC Line placed 06/03 - Abdominal surgical site wound care per surgery team - Monitor WBC and fever trends - Pressure offloading measures. Turn patient q2h, wedge pillow, low air-loss mattress. Apply barrier cream to sacrum/buttocks - Seizure precautions Case discussed with Bam Kaye
[2023-06-07] MEDS ORDERED: MUPIROCIN 2% OINT 22GM TUBE TOP ONE (09:03)
[2023-06-07] MEDS ORDERED: LEVETIRACETAM 500 MG/5 ML VIAL IV ONE ×2 (09:03→19:56)
[2023-06-07] MEDS: levETIRAcetam 500 MG in NA CHLORIDE 0.9% 100 ML IV SCH ×2 (09:10→19:58)
[2023-06-07] MEDS: MUPIROCIN 2% OINT 22GM TUBE TOP SCH (09:11)
[2023-06-07] MEDS: DEXMEDETOMIDINE HCL 1,000 MCG in NA CHLORIDE 0.9% 490 ML IV SCH (12:50)
[2023-06-07] MEDS ORDERED: HYDRALAZINE HCL 20 MG/ML VIAL ONE (14:19)
--- NOTE | 2023-06-07 14:32 | P.PN ---
Subjective Date of Service: 06/07/23 Chief Complaint: GI bleed, Gastric perforation Patient is awake and interactive. Seems to be comprehending conversations more. Stable on [id number] mode Change in respiratory condition after NG tube pulled out. No report of gross aspiration. No seizures. Physical Examination - Vital Signs Temperature: 97.7 F Blood Pressure: 183/125 Pulse: 65 Respirations: 17 Pulse Ox (%): 99 Assessment And Plan - Plan Physical exam: GEN: Awake, NAD. Obeys simple instructions. HEENT: Normal conjunctiva, sclera anicteric Neck: Tracheostomy in place. CV: Regular rate and rhythm, trace b/l pedal edema Pulm: diminished at bases bilaterally, bilateral crackles. ABD: Soft, nondistended Neuro: No focal motor deficit. 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 (05/05) Dr. Foster discussed with bariatric surgeons - not much options, need to wait many months before would attempt any further intra-abdominal procedures ARMIN drains still in place with minimal to no output J-tube Feeding dc'd due to leak/ nonfunctioning; suspected pulled out partially while patient was moving around/restless last week Patient pulled out her NG tube. Crisitan is aware and recommend to monitor and not to reinsert NG tube for now. Monitor for aspiration. She completed vancomycin and micafungin. Continue TPN at the current rate. Total 12 units PRBC transfused. Hemoglobin appears stable. Monitor and transfuse for hemoglobin less than 7. Was on continuous PPI IV after episode of GI bleeding last week Transitioned to IV BID dosing 05/31. Continue IV Protonix. Serial abdominal examination given CT abd/pelvis (05/30) showing 4 cm subcapsular splenic hematoma mildly diminished in size. UTI, MDR Pseudomonas Aeruginosa Blood cx (05/18): No growth; Blood cx (05/30): NGTD Urine cx (05/30): Pseudomonas Aeruginosa sputum cx (05/31): Pseudomonas Aeruginosa CT chest/abd (05/18) with no obvious infectious findings-atelectasis vs infiltrate CTA chest (05/30): with RLL atelectasis, mild b/l pulm opacities, esophageal dilation. no PE. Anti-Infective Agents - Meropenem (05/06-05/24), (05/30-06/03) - Vancomycin (05/06-05/16) (05/19-) - Micafungin (05/20-) Completed Micafungin / Vancomycin for 2 weeks total per ID (05/20-06/03) continue cefepime for 2 weeks total per ID (06/02-06/16) repeat urine and sputum culture 05/30 grew Pseudomonas Aeruginosa again, resistant to merrem merrem switched to cefepime given culture sensitivity 06/02 afebrile, leukocytosis resolved. Acute hypoxic respiratory failure/acute lung injury Patient extubated to oxygen by nasal cannula 05/21 re intubated overnight 05/29 for hypoxic respiratory failure CTA chest (05/30): No PE. RLL atelectasis, Mild bilateral pulmonary opacities, esophageal dilation unclear etiology, atelectasis vs mucous/blood clot plug doing well, plan for trach on 06/03; ENT consulted; family updated and agreed pulm out of town until 06/15 Initial Sputum culture grew Pseudomonas and completed 2 week course of merrem, however sputum growing pseudomonas again, now resistant to merrem (06/02) ENT recommended cuffed tracheostomy to reduce risk of aspiration. Tracheostomy placed 06/04/23. Currently tolerating SIMV. Continue vent weaning IV Lasix therapy per nephrology. Acetaminophen toxicity Patient completed acetylcysteine IV infusion for APAP toxicity. Resolved. JERI secondary to acute blood loss anemia, hypotension/prerenal state Hypoglycemia Malnutrition/hypoalbuminemia JERI resolved. Nephrology is following. Continue TPN. Monitor renal function. Monitor and optimize electrolytes. Fingerstick glucose monitoring. Anasarca Improved. Intermittent Lasix and albumin as needed. Thrombocytopenia Resolved. No anticoagulation given intermittent anemia requiring blood transfusions. Bipolar disorder/depression/anxiety Oral meds held given n.p.o. status. Seizures/metabolic encephalopathy Seizures likely metabolic related per Dr. Cameron. On IV Keppra per Dr. Cameron recommendation. No further seizures. Suspected hypoxic encephalopathy. VTE: SCD Code: Full Dispo: Social service is exploring disposition LTAC option vs SNF.
--- NOTE | 2023-06-07 16:43 | P.PN ---
Subjective Date of Service: 06/07/23 Chief Complaint: GI bleed, Gastric perforation Subjective: Other (bedbound) Physical Examination - Vital Signs Temperature: 97.7 F Blood Pressure: 142/76 Pulse: 54 Respirations: 25 Pulse Ox (%): 100 - Physical Exam General: Other (chronically ill-appearing) HEENT: Atraumatic, Normocephalic, Other (+trach) Neck: Supple Respiratory: Other (symmetric chest expansion) Cardiovascular: No rubs, No murmurs Gastrointestinal: Soft and benign, No guarding Musculoskeletal: No clubbing Integumentary: No warmth Neurological: Normal tone Urinary: Other (no bladder distention) External genitalia: Deferred Rectal: Deferred Assessment And Plan - Plan 1. Acute kidney injury secondary to poor perfusion ATN, toxic ATN. SCr improved to 0.4. Continue TPN same rate. Monitor renal panel. 2. Hypokalemia, hypomagnesemia, hypophosphatemia. Replete prn. 3. Hypernatremia. Improved. IV hydration & TPN as above. 4. Gastric pouch perforation, status post surgery. Per Gen Surg service. 5. Acute/chronic respiratory failure. +Trach. Per ICU team. 6. Anemia. pRBC transf prn for Hgb < 7.0. No indication for DAMON.
[2023-06-07] MEDS ORDERED: [UNRECOGNIZED DRUG - OTHER] IV SCH ×7 (17:00)
[2023-06-07] MEDS ORDERED: LIPIDS 20% IV SCH ×7 (17:00)
[2023-06-07] MEDS ORDERED: AMINO ACIDS IV SCH ×7 (17:00)
[2023-06-07] MEDS ORDERED: DEXTROSE 20% IV SCH ×7 (17:00)
[2023-06-07] MEDS ORDERED: SODIUM ACETATE IV SCH ×7 (17:00)
[2023-06-07] MEDS ORDERED: IPRATROPIUM BROM 0.5MG/2.5ML ONE (19:37)
[2023-06-08] MEDS: CEFEPIME 2 GM in NA CHLORIDE 0.9% 100 ML IV SCH ×3 (00:05→17:09)
[2023-06-08] MEDS: HYDROMORPHONE HCL 2 MG/ML inj IV PRN ×2 (00:20→06:00)
[2023-06-08] MEDS: LORazepam 2 MG/ML VIAL IV PRN ×5 (00:50→23:21)
[2023-06-08] MEDS ORDERED: DIPHENHYDRAMINE 50 MG/ML VIAL ONE (02:37)
[2023-06-08] MEDS: DIPHENHYDRAMINE 50 MG/ML VIAL IV PRN (02:39)
[2023-06-08] MEDS: DEXMEDETOMIDINE HCL 1,000 MCG in NA CHLORIDE 0.9% 490 ML IV SCH ×2 (04:24→16:44)
[2023-06-08 05:09] LABS: Absolute Lymphocytes (CBC) 1.2 K/uL (0.7-4.9); Hematocrit 24.9 % (36.0-45.0); Lymphocytes % 21.1 % (15.3-44.8); MCV 92.2 fL (80-100); MPV 8.9 fL (7.6-11.3); Platelets 166 thou/uL (152-406)
[2023-06-08 05:30] LABS: Albumin 1.9 g/dL (3.4-5.0); Bilirubin Total 0.5 mg/dL (0.2-1.0); Magnesium 1.8 mg/dL (1.6-2.4); Phosphorus 3.8 mg/dL (2.5-4.9); Potassium 4.1 mEq/L (3.5-5.1); Protein, Total 6.6 g/dL (6.4-8.2)
[2023-06-08] MEDS: PANTOPRAZOLE 40 MG INJ IVP SCH ×2 (08:05→20:05)
[2023-06-08] MEDS ORDERED: LEVETIRACETAM 500 MG/5 ML VIAL IV ONE ×2 (08:43→19:55)
[2023-06-08] MEDS ORDERED: NA CHLORIDE 0.9% 100 ML ONE ×4 (08:43→23:23)
[2023-06-08] MEDS: MUPIROCIN 2% OINT 22GM TUBE TOP SCH (08:48)
[2023-06-08] MEDS: levETIRAcetam 500 MG in NA CHLORIDE 0.9% 100 ML IV SCH ×2 (08:48→20:04)
--- NOTE | 2023-06-08 13:11 | P.PN ---
Subjective Date of Service: 06/08/23 Chief Complaint: GI bleed, Gastric perforation Patient is awake and interactive. She is intermittently agitated She was weaned off the vent yesterday and she is currently tolerating oxygen by trach collar No reported aspiration event. No seizures. Physical Examination - Vital Signs Temperature: 98.0 F Blood Pressure: 191/97 Pulse: 91 Respirations: 17 Pulse Ox (%): 100 Assessment And Plan - Plan Physical exam: GEN: Awake, NAD. Obeys simple instructions. Neck: Tracheostomy in place. CV: Regular rate and rhythm, trace b/l pedal edema Pulm: diminished at bases bilaterally, bilateral crackles. ABD: Soft, nondistended Neuro: No focal motor deficit. 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 (05/05) Dr. Foster discussed with bariatric surgeons - not much options, need to wait many months before would attempt any further intra-abdominal procedures ARMIN drains still in place with minimal to no output J-tube Feeding dc'd due to leak/ nonfunctioning; suspected pulled out partially while patient was moving around/restless last week Patient pulled out her NG tube. Cristian is aware and recommend to monitor and not to reinsert NG tube for now. Monitor for aspiration. She completed vancomycin and micafungin. Continue TPN at the current rate. Total 12 units PRBC transfused. Hemoglobin appears stable. Was on continuous PPI IV after episode of GI bleeding last week Transitioned to IV BID dosing 05/31. Continue IV Protonix. Serial abdominal examination given CT abd/pelvis (05/30) showing 4 cm subcapsular splenic hematoma mildly diminished in size. UTI, MDR Pseudomonas Aeruginosa Blood cx (05/18): No growth; Blood cx (05/30): NGTD Urine cx (05/30): Pseudomonas Aeruginosa sputum cx (05/31): Pseudomonas Aeruginosa CT chest/abd (05/18) with no obvious infectious findings-atelectasis vs infiltrate CTA chest (05/30): with RLL atelectasis, mild b/l pulm opacities, esophageal dilation. no PE. Anti-Infective Agents - Meropenem (05/06-05/24), (05/30-06/03) - Vancomycin (05/06-05/16) (05/19-) - Micafungin (05/20-) Completed Micafungin / Vancomycin for 2 weeks total per ID (05/20-06/03) continue cefepime for 2 weeks total per ID (06/02-06/16) repeat urine and sputum culture 05/30 grew Pseudomonas Aeruginosa again, resistant to merrem merrem switched to cefepime given culture sensitivity 06/02 afebrile, leukocytosis resolved. Acute hypoxic respiratory failure/acute lung injury Patient extubated to oxygen by nasal cannula 05/21 re intubated overnight 05/29 for hypoxic respiratory failure CTA chest (05/30): No PE. RLL atelectasis, Mild bilateral pulmonary opacities, esophageal dilation unclear etiology, atelectasis vs mucous/blood clot plug doing well, plan for trach on 06/03; ENT consulted; family updated and agreed pulm out of town until 06/15 Initial Sputum culture grew Pseudomonas and completed 2 week course of merrem, however sputum growing pseudomonas again, now resistant to merrem (06/02) ENT recommended cuffed tracheostomy to reduce risk of aspiration. Tracheostomy placed 06/04/23. Patient weaned off the vent and currently tolerating oxygen by trach collar. IV Lasix therapy per nephrology. Acetaminophen toxicity Patient completed acetylcysteine IV infusion for APAP toxicity. Resolved. JERI secondary to acute blood loss anemia, hypotension/prerenal state Hypoglycemia Malnutrition/hypoalbuminemia JERI resolved. Nephrology is following. Continue TPN. Monitor renal function. Monitor and optimize electrolytes. Fingerstick glucose monitoring. Anasarca Improved. Intermittent Lasix and albumin as needed. Thrombocytopenia Resolved. No anticoagulation given intermittent anemia requiring blood transfusions. Bipolar disorder/depression/anxiety Oral meds held given n.p.o. status. Seizures/metabolic encephalopathy/Hypoxic encephalopathy Seizures likely metabolic related per Dr. Cameron. On IV Keppra per Dr. Cameron recommendation. No further seizures. VTE: SCD Code: Full Dispo: Social service is exploring disposition LTAC option vs SNF.
[2023-06-08] MEDS ORDERED: ZIPRASIDONE MESYLA 20 MG/VIAL IM ONE (13:44)
[2023-06-08] MEDS ORDERED: NS 0.9% VIAL 10 ML ONE (13:44)
[2023-06-08] MEDS: ZIPRASIDONE MESYLA 20 MG/VIAL IM PRN (13:50)
[2023-06-08] MEDS: SODIUM ACETATE IV SCH ×5 (16:42)
[2023-06-08] MEDS: DEXTROSE IV SCH ×5 (16:42)
[2023-06-08] MEDS: [UNRECOGNIZED DRUG - OTHER] IV SCH ×5 (16:42)
[2023-06-08] MEDS: AMINO ACIDS IV SCH ×5 (16:42)
[2023-06-08] MEDS: MAGNESIUM IV SCH ×5 (16:42)
[2023-06-08] MEDS ORDERED: CEFEPIME 2 GM VIAL ONE ×2 (17:07→23:22)
--- NOTE | 2023-06-08 17:59 | PN ---
Date of Progress Note: 06/08/2023 Subjective: Patient is doing well. She smiled. She responds, although she is still disoriented. S he is still confused sometimes and trying to go for drainage, so we have to somehow protect her from doing damage to herself by accident, that means that she goes for the drainage in the tube that we marroquin ve. Objective: Chest: Clear. Abdomen: Soft and depressible. Bowel sounds positive. Extremities: Good capillary refill. Neck: Tracheostomy in place. No bleeding. Laboratory Data: Blood work, hemoglobin of 8.5 with WBC count of 5.9, and platelets of 166. Plan: From the surgical standpoint may be transfer to LTAC if possible. She will have to see a [facility] atric surgeon in the next few months for the plan for reconstructions. In the meantime, unfortunatel y, the feeding on her will require TPN. Physical therapy may help. We will see the patient with you and give more recommendations as the case continue. HM/MODL Voice ID: [id number] Report ID: [id number]
[2023-06-09] MEDS: CEFEPIME 2 GM in NA CHLORIDE 0.9% 100 ML IV SCH ×3 (00:11→16:49)
[2023-06-09] MEDS ORDERED: DIPHENHYDRAMINE 50 MG/ML VIAL ONE ×2 (00:36→08:36)
[2023-06-09] MEDS: DIPHENHYDRAMINE 50 MG/ML VIAL IV PRN ×2 (00:38→08:38)
[2023-06-09] MEDS ORDERED: ZIPRASIDONE MESYLA 20 MG/VIAL IM ONE (02:04)
[2023-06-09] MEDS ORDERED: WATER FOR INJ,STERILE 10 ML ONE (02:05)
[2023-06-09] MEDS: WATER FOR INJ,STERILE 10 ML IM PRN (02:11)
[2023-06-09] MEDS: ZIPRASIDONE MESYLA 20 MG/VIAL IM PRN (02:12)
--- NOTE | 2023-06-09 03:17 | PN ---
Date of Progress Note: 06/08/2023 Chief Complaint: GI bleeding, gastric perforation, status post surgery for perforated viscus. Review of Systems: The patient is lethargic. She appears chronically ill and she cannot provide review of systems. Physical Examination: General: The patient is not in acute distress. Respiratory: Equal chest expansion. Cardiovascular: No pericardial friction rub. No murmur. Abdomen: Bowel sounds present. Extremities: No edema. Impression And Plan: 1. Acute on chronic kidney injury due to poor perfusion. The patient developed toxic acute tubular, has resolved. Serum creatinine improved to 0.4. Continue total parenteral nutrition and monitor electrolyte panel. 2. Hypokalemia, hypomagnesemia, hypophosphatemia. Replete as needed. 3. Hypernatremia improved. The patient received IV hydration and TPN adjustments were made. 4. Gastric pouch perforation, status post surgery per General Surgery Service. 5. Acute on chronic respiratory failure, status post tracheostomy. Monitor and management per ICU team. 6. Anemia due to chronic illness. Packed red blood cell transfusion if hemoglobin is below 7. No indication for DAMON. EB/MODL Voice ID: [id number] Report ID: [id number] ELENI
[2023-06-09 05:01] LABS: Absolute Lymphocytes (CBC) 1.1 K/uL (0.7-4.9); Hematocrit 25.8 % (36.0-45.0); Lymphocytes % 19.4 % (15.3-44.8); MCV 91.4 fL (80-100); MPV 8.9 fL (7.6-11.3); Platelets 174 thou/uL (152-406); RBC Red Blood Cell Count 2.82 M/uL (3.86-4.86)
[2023-06-09 05:20] LABS: Albumin 2.2 g/dL (3.4-5.0); Bilirubin Total 0.5 mg/dL (0.2-1.0); Magnesium 1.7 mg/dL (1.6-2.4); Phosphorus 3.4 mg/dL (2.5-4.9); Potassium 3.8 mEq/L (3.5-5.1); Protein, Total 6.7 g/dL (6.4-8.2)
[2023-06-09] MEDS ORDERED: KCL 20 MEQ/100 mL IVPB 20 MEQ/100 ML BAG IV SCH (07:30)
[2023-06-09] MEDS ORDERED: CEFEPIME 2 GM VIAL ONE ×3 (08:08→23:39)
[2023-06-09] MEDS ORDERED: MUPIROCIN 2% OINT 22GM TUBE TOP ONE (08:08)
[2023-06-09] MEDS ORDERED: LEVETIRACETAM 500 MG/5 ML VIAL IV ONE ×2 (08:08→19:38)
[2023-06-09] MEDS: DEXMEDETOMIDINE HCL 1,000 MCG in NA CHLORIDE 0.9% 490 ML IV SCH ×2 (08:26→19:12)
[2023-06-09] MEDS: MUPIROCIN 2% OINT 22GM TUBE TOP SCH (08:27)
[2023-06-09] MEDS: MAGNESIUM SULFATE 1 gm IVPB 1 GM/100 ML BAG IV ONE ×2 (08:27→08:31)
[2023-06-09] MEDS: LORazepam 2 MG/ML VIAL IV PRN ×5 (08:28→23:52)
[2023-06-09] MEDS: levETIRAcetam 500 MG in NA CHLORIDE 0.9% 100 ML IV SCH ×2 (08:28→20:32)
[2023-06-09] MEDS: PANTOPRAZOLE 40 MG INJ IVP SCH ×2 (08:28→20:33)
[2023-06-09] MEDS ORDERED: NA CHLORIDE 0.9% 200 ML ONE (08:30)
[2023-06-09] MEDS ORDERED: KCL 20 MEQ/100 mL IVPB 100 ML IV ONE (09:23)
[2023-06-09] MEDS ORDERED: LORazepam 2 MG/ML VIAL ONE ×3 (10:24→18:12)
--- NOTE | 2023-06-09 12:02 | P.PN ---
Subjective Date of Service: 06/09/23 Chief Complaint: GI bleed, Gastric perforation Patient is awake and follows simple commands. He is intermittently agitated and still on Precedex drip. Patient's oxygen collar is not in position, yet she is saturating at >95% No reported aspiration event. No seizures. Physical Examination - Vital Signs Temperature: 97.0 F Blood Pressure: 142/79 Pulse: 64 Respirations: 22 Pulse Ox (%): 100 Assessment And Plan - Plan Physical exam: GEN: Awake, NAD. Obeys simple instructions. Neck: Tracheostomy in place. CV: Regular rate and rhythm, trace b/l pedal edema Pulm: diminished at bases bilaterally, bilateral crackles. ABD: Soft, nondistended Neuro: No focal motor deficit. 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 (05/05) Dr. Foster discussed with bariatric surgeons - not much options, need to wait many months before would attempt any further intra-abdominal procedures J-tube Feeding dc'd due to leak/ nonfunctioning; suspected pulled out partially while patient was moving around/restless last week Patient pulled out her NG tube. Cristian is aware and recommend to monitor and not to reinsert NG tube for now. Monitor for aspiration. She completed vancomycin and micafungin. Continue TPN at the current rate. Total 12 units PRBC transfused. Hemoglobin appears stable. Was on continuous PPI IV after episode of GI bleeding last week Transitioned to IV BID dosing 05/31. Continue IV Protonix. Serial abdominal examination given CT abd/pelvis (05/30) showing 4 cm subcapsular splenic hematoma mildly diminished in size. UTI, MDR Pseudomonas Aeruginosa Blood cx (05/18): No growth; Blood cx (05/30): NGTD Urine cx (05/30): Pseudomonas Aeruginosa sputum cx (05/31): Pseudomonas Aeruginosa CT chest/abd (05/18) with no obvious infectious findings-atelectasis vs infiltrate CTA chest (05/30): with RLL atelectasis, mild b/l pulm opacities, esophageal dilation. no PE. Anti-Infective Agents - Meropenem (05/06-05/24), (05/30-06/03) - Vancomycin (05/06-05/16) (05/19-) - Micafungin (05/20-) Completed Micafungin / Vancomycin for 2 weeks total per ID (05/20-06/03) continue cefepime for 2 weeks total per ID (06/02-06/16) repeat urine and sputum culture 05/30 grew Pseudomonas Aeruginosa again, resistant to merrem merrem switched to cefepime given culture sensitivity 06/02 afebrile, leukocytosis resolved. Acute hypoxic respiratory failure/acute lung injury Patient extubated to oxygen by nasal cannula 05/21 re intubated overnight 05/29 for hypoxic respiratory failure CTA chest (05/30): No PE. RLL atelectasis, Mild bilateral pulmonary opacities, esophageal dilation unclear etiology, atelectasis vs mucous/blood clot plug doing well, plan for trach on 06/03; ENT consulted; family updated and agreed pulm out of town until 06/15 Initial Sputum culture grew Pseudomonas and completed 2 week course of merrem, however sputum growing pseudomonas again, now resistant to merrem (06/02) ENT recommended cuffed tracheostomy to reduce risk of aspiration. Tracheostomy placed 06/04/23. Patient weaned off the vent and currently tolerating oxygen by trach collar. May be able to wean to room air IV Lasix therapy per nephrology. Acetaminophen toxicity Patient completed acetylcysteine IV infusion for APAP toxicity. Resolved. JERI secondary to acute blood loss anemia, hypotension/prerenal state Hypoglycemia Malnutrition/hypoalbuminemia JERI resolved. Nephrology is following. Continue TPN. Monitor renal function. Monitor and optimize electrolytes. Fingerstick glucose monitoring. Anasarca Improved. Intermittent Lasix and albumin as needed. Thrombocytopenia Resolved. No anticoagulation given intermittent anemia requiring blood transfusions. Bipolar disorder/depression/anxiety Oral meds held given n.p.o. status. Seizures/metabolic encephalopathy/Hypoxic encephalopathy Seizures likely metabolic related per Dr. Cameron. On IV Keppra per Dr. Cameron recommendation. No further seizures. VTE: SCD Code: Full Dispo: Social service is exploring disposition LTAC option vs SNF.
[2023-06-09 13:08] LABS: Magnesium 4.1 mg/dL (1.6-2.4); Phosphorus 6.4 mg/dL (2.5-4.9)
[2023-06-09] MEDS ORDERED: NA CHLORIDE 0.9% 100 ML ONE ×3 (14:41→23:40)
[2023-06-09] MEDS: MAGNESIUM IV SCH ×5 (17:08)
[2023-06-09] MEDS: DEXTROSE IV SCH ×5 (17:08)
[2023-06-09] MEDS: AMINO ACIDS IV SCH ×5 (17:08)
[2023-06-09] MEDS: SODIUM ACETATE IV SCH ×5 (17:08)
[2023-06-09] MEDS: [UNRECOGNIZED DRUG - OTHER] IV SCH ×5 (17:08)
[2023-06-09 17:33] LABS: Albumin 2.1 g/dL (3.4-5.0); Bilirubin Total 0.6 mg/dL (0.2-1.0); Magnesium 2.1 mg/dL (1.6-2.4); Potassium 4.5 mEq/L (3.5-5.1); Protein, Total 6.7 g/dL (6.4-8.2)
--- NOTE | 2023-06-09 18:07 | PN ---
Date of Progress Note: 06/09/2023 Diagnosis: Gastric perforation. Subjective: Patient is doing better from the surgical standpoint. Medically, she is still confused. Still with she is sometimes noncooperative, trying to pull the tubes out. Objective: Abdomen: Has not changed. Bowel sounds positive. Intact surgical site. Extremities: Good capillary refill. Plan: From the surgical standpoint, we have no current plan to take her to surgery and the timing is somehow not decided at this moment, but we expect a few months before this can be reversed again by the bariatric gastric surgeon. Continue TPN. DVT prophylaxis. Continue ARMIN drains. HM/MODL Voice ID: [id number] Report ID: [id number]
--- NOTE | 2023-06-09 23:44 | PN ---
Date of Progress Note: 06/09/2023 Chief Complaint: Gastric perforation, GI bleeding, status post surgery for perforated viscus. Review of Systems: Patient is lethargic, cannot provide review of systems. Physical Examination: General: The patient is not in acute distress. Respiratory: Equal chest expansion. No wheezing. Heart: S1, S2. No pericardial or friction rub. Abdomen: Soft. Bowel sounds present. Extremities: No edema. Impression And Plan: 1. Acute on chronic kidney injury due to poor perfusion. Patient developed toxic acute tubular necrosis and renal function has resolved. Serum creatinine level improved to 0.4. Continue total parenteral nutrition. Monitor electrolyte panel. 2. Hypokalemia, hypomagnesemia, hypophosphatemia, replete as needed. 3. Hypernatremia, improved. Patient received IV hydration, TPN and adjustments were made. 4. Gastric pouch perforation, status post surgery per General Surgery Service. 5. Acute on chronic respiratory failure, status post tracheostomy. Monitor and management per ICU team. 6. Anemia due to chronic illness. Packed red blood cell transfusion if hemoglobin is below 7. EB/MODAby Voice ID: [id number] Report ID: [id number] ELENI
[2023-06-10] MEDS: CEFEPIME 2 GM in NA CHLORIDE 0.9% 100 ML IV SCH ×3 (00:04→17:34)
[2023-06-10] MEDS: LORazepam 2 MG/ML VIAL IV PRN ×4 (04:08→23:12)
[2023-06-10 05:10] LABS: Absolute Lymphocytes (CBC) 1.3 K/uL (0.7-4.9); Hematocrit 26.9 % (36.0-45.0); Lymphocytes % 20.3 % (15.3-44.8); MCV 92.4 fL (80-100); MPV 9.1 fL (7.6-11.3); Platelets 184 thou/uL (152-406); RBC Red Blood Cell Count 2.91 M/uL (3.86-4.86)
[2023-06-10 05:25] LABS: Phosphorus 3.9 mg/dL (2.5-4.9)
[2023-06-10 05:27] LABS: Potassium 4.4 mEq/L (3.5-5.1)
[2023-06-10] MEDS ORDERED: LEVETIRACETAM 500 MG/5 ML VIAL IV ONE ×2 (08:05→21:12)
[2023-06-10] MEDS ORDERED: CEFEPIME 2 GM VIAL ONE ×2 (08:05→17:05)
[2023-06-10] MEDS ORDERED: NA CHLORIDE 0.9% 200 ML ONE (08:07)
[2023-06-10] MEDS: PANTOPRAZOLE 40 MG INJ IVP SCH ×2 (08:11→20:03)
[2023-06-10] MEDS: MUPIROCIN 2% OINT 22GM TUBE TOP SCH (08:11)
[2023-06-10] MEDS: levETIRAcetam 500 MG in NA CHLORIDE 0.9% 100 ML IV SCH ×2 (08:11→21:14)
--- NOTE | 2023-06-10 09:26 | P.PN ---
Date of Service: 06/10/23 Chief Complaint: Respiratory failure Subjective: Patient weaned off ventilator over the weekend. Tolerating room air via trach No acute events overnight. In no apparent distress. Physical Examination Temp Pulse Resp BP Pulse Ox 96.6 F L 72 15 151/93 H 98 06/10/23 08:00 06/10/23 09:00 06/10/23 09:00 06/10/23 09:00 06/10/23 09:00 General: Awake. In no apparent distress. Oriented x1-2. HEENT: Atraumatic, Normocephalic. Tracheostomy. Respiratory: Trach. unlabored respirations. + thick sputum production via trach. Cardiovascular: Regular rate and rhythm. No edema. Gastrointestinal: Abdominal surgical incision sites. Non-distended. Soft. Integumentary: Abdominal surgical site dressing is clean dry and intact. ARMIN drains x3 with minimal serous drainage. Urinary: Carl catheter present Laboratory Data - Reviewed Microbiology Data - Reviewed Imagings Data: - CT abdomen pelvis 05/18: ": Bibasilar lung consolidations are present posteriorly which may represent infiltrate or atelectasis. There is no evidence of intra- abdominal or intrapelvic abscess collection. Small moderate left inguinal hernia containing nonobstructed small bowel." - XR Chest 05/23: "Patchy bibasilar opacities, left greater than right (atelectasis and/or infiltrate)." - CT head spine wo contrast 05/23: "No acute intracranial or extra-axial abnormality. No acute cervical spine injury." - XR Chest 05/29: "The lungs are grossly clear. The heart is normal in size. No displaced fractures.Left-sided venous catheter has tip in the SVC. Enteric tube descends into the upper abdomen." - XR KUB 05/29: "Tip of the enteric tube is in the stomach. Skin tory are noted along the midline. Several drainage catheters are seen. Mildly prominent central small bowel loops identified." - CTA Chest 05/30: " Negative for a pulmonary embolism. Right lower lobe atelectasis. Mild bilateral pulmonary opacities may represent mild interstitial pulmonary edema. Esophageal dilatation" - CT abdomen pelvis w contrast 05/30: ": 4 centimeter subcapsular splenic hematoma mildly diminished in size. 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 Foster on 05/05. - Blood cultures 05/05: No growth to date - Repeat blood culture 05/11: No growth 24 hours - Urine culture 05/06: No growth to date - Pus drainage from midline abdominal incision site by Dr. Foster at bedside 05/13 - CT abdomen pelvis 05/18: ": Bibasilar lung consolidations are present posteriorly which may represent infiltrate or atelectasis. There is no evidence of intra- abdominal or intrapelvic abscess collection. Small moderate left inguinal hernia containing nonobstructed small bowel." - Fluconazole started 05/11 due to high risk/concern for superimposed fungal infection, patient also on TPN. Switched to Micafungin on 05/20 - Completed 14 days Vancomycin and Meropenem Acute Hypoxic Respiratory Failure - pulmonology following - sputum culture 05/11: Pseudomonoas aeruginosa - Treated with Meropenem IV. - Extubated 05/21 - XR Chest 05/29: "The lungs are grossly clear. The heart is normal in size. No displaced fractures.Left-sided venous catheter has tip in the SVC. Enteric tube descends into the upper abdomen." - 05/29: patient became hypoxic, hypotensive and tachycardic and was subsequently intubated - Sputum culture 05/31: Pseudomonoas aeruginosa - Resistant to meropenem. Started on Cefepime 06/02 - Tracheostomy on 06/03 Catheter-Associated Urinary Tract Infection - Urine culture 05/30: Pseudomonoas aeruginosa. resistant to meropenem. - on Cefepime (started 06/02) Anti-Infective Agents - Cefepime (06/02-) - Vancomycin (05/06-05/16) (05/19-06/04) - Micafungin (05/20-06/03) - Meropenem (05/06-05/24), (05/30-06/03) Recommendations - Pseudomonas: Continue Cefepime for 10 days (06/02 to 06/12). - Abdominal surgical site wound care per surgery team - Monitor WBC and fever trends - Pressure offloading measures. Turn patient q2h, wedge pillow, low air-loss mattress. Apply barrier cream to sacrum/buttocks - Seizure precautions - Trach care Case discussed with Bam Kaye
[2023-06-10] MEDS: DEXMEDETOMIDINE HCL 1,000 MCG in NA CHLORIDE 0.9% 490 ML IV SCH (09:34)
--- NOTE | 2023-06-10 11:09 | P.PN ---
Subjective Date of Service: 06/10/23 Chief Complaint: GI bleed, Gastric perforation Patient is awake, interactive, responds appropriately He is intermittently agitated and still on Precedex drip. Patient patient not using oxygen. No reported aspiration event. No seizures. Physical Examination - Vital Signs Temperature: 96.6 F Blood Pressure: 151/93 Pulse: 72 Respirations: 15 Pulse Ox (%): 98 Assessment And Plan - Plan Physical exam: GEN: Awake, NAD. Interactive and obey commands.. Neck: Tracheostomy in place. CV: Regular rate and rhythm, trace b/l pedal edema Pulm: diminished at bases bilaterally, bilateral crackles. ABD: Soft, nondistended, nontender. Neuro: No focal motor deficit. Carl in place (replaced 05/29) Vitals reviewed Problem List Gastric pouch perforation/rupture with history of David-en-Y bypass S/P repair 05/05 Acute blood loss anemia secondary to above Hypovolemic shock secondary to GI bleed UTI, MDR Pseudomonas Aeruginosa Acute hypoxic respiratory failure/acute lung injury Acetaminophen toxicity JERI secondary to acute blood loss anemia, hypotension/prerenal state Hypoglycemia Malnutrition/hypoalbuminemia Bipolar disorder/depression/anxiety Seizures/metabolic encephalopathy Gastric pouch perforation/rupture with history of David-en-Y bypass Acute blood loss anemia secondary to upper GI bleed Hypovolemic shock secondary to GI bleed S/P Ex lap-small bowel davdi limb repair, repair of gastric pouch (05/05) S/P EGD with large clot in gastric pouch and fresh blood in esophagus, injected with epi in surrounding area. (05/05) Dr. Foster discussed with bariatric surgeons - not much options, need to wait many months before would attempt any further intra-abdominal procedures J-tube Feeding dc'd due to leak/ nonfunctioning; suspected pulled out partially while patient was moving around/restless last week Patient pulled out her NG tube. Cristian is aware and recommend to monitor and not to reinsert NG tube for now. Monitor for aspiration. She completed vancomycin and micafungin. Continue TPN at the current rate. Total 12 units PRBC transfused. Hemoglobin appears stable. Was on continuous PPI IV after episode of GI bleeding last week Transitioned to IV BID dosing 05/31. Continue IV Protonix. Serial abdominal examination given CT abd/pelvis (05/30) showing 4 cm subcapsular splenic hematoma mildly diminished in size. UTI, MDR Pseudomonas Aeruginosa Blood cx (05/18): No growth; Blood cx (05/30): NGTD Urine cx (05/30): Pseudomonas Aeruginosa sputum cx (05/31): Pseudomonas Aeruginosa CT chest/abd (05/18) with no obvious infectious findings-atelectasis vs infiltrate CTA chest (05/30): with RLL atelectasis, mild b/l pulm opacities, esophageal dilation. no PE. Anti-Infective Agents - Meropenem (05/06-05/24), (05/30-06/03) - Vancomycin (05/06-05/16) (05/19-) - Micafungin (05/20-) Completed Micafungin / Vancomycin for 2 weeks total per ID (05/20-06/03) repeat urine and sputum culture 05/30 grew Pseudomonas Aeruginosa again, resistant to merrem merrem switched to cefepime given culture sensitivity 06/02 afebrile, leukocytosis resolved. continue cefepime for 2 weeks total per ID (06/02-06/16) Acute hypoxic respiratory failure/acute lung injury Patient extubated to oxygen by nasal cannula 05/21 re intubated overnight 05/29 for hypoxic respiratory failure CTA chest (05/30): No PE. RLL atelectasis, Mild bilateral pulmonary opacities, esophageal dilation unclear etiology, atelectasis vs mucous/blood clot plug doing well, plan for trach on 06/03; ENT consulted; family updated and agreed pulm out of town until 06/15 Initial Sputum culture grew Pseudomonas and completed 2 week course of merrem, however sputum growing pseudomonas again, now resistant to merrem (06/02) ENT recommended cuffed tracheostomy to reduce risk of aspiration. Tracheostomy placed 06/04/23. Patient weaned off the vent and currently tolerating oxygen by trach collar. Wean patient to room air. IV Lasix therapy per nephrology. Acetaminophen toxicity Patient completed acetylcysteine IV infusion for APAP toxicity. Resolved. JERI secondary to acute blood loss anemia, hypotension/prerenal state Hypoglycemia Malnutrition/hypoalbuminemia JERI resolved. Nephrology is following. Continue TPN. Monitor renal function. Monitor and optimize electrolytes. Fingerstick glucose monitoring. Anasarca Improved. Intermittent Lasix and albumin as needed. Thrombocytopenia Resolved. No anticoagulation given intermittent anemia requiring blood transfusions. Bipolar disorder/depression/anxiety Oral meds held given n.p.o. status. Seizures/metabolic encephalopathy/Hypoxic encephalopathy Seizures likely metabolic related per Dr. Cameron. On IV Keppra per Dr. Cameron recommendation. No further seizures. VTE: SCD Code: Full Dispo: Social service is exploring disposition to SNF.
[2023-06-10] MEDS ORDERED: ZIPRASIDONE MESYLA 20 MG/VIAL IM ONE (14:35)
[2023-06-10] MEDS ORDERED: WATER FOR INJ,STERILE 10 ML ONE (14:35)
[2023-06-10] MEDS: WATER FOR INJ,STERILE 10 ML IM PRN (14:40)
[2023-06-10] MEDS: ZIPRASIDONE MESYLA 20 MG/VIAL IM PRN (14:40)
[2023-06-10] MEDS ORDERED: NA CHLORIDE 0.9% 100 ML ONE ×2 (17:05→21:12)
[2023-06-10] MEDS: SODIUM ACETATE IV SCH ×7 (17:34)
[2023-06-10] MEDS: DEXTROSE 20% IV SCH ×7 (17:34)
[2023-06-10] MEDS: [UNRECOGNIZED DRUG - OTHER] IV SCH ×7 (17:34)
[2023-06-10] MEDS: LIPIDS 20% IV SCH ×7 (17:34)
[2023-06-10] MEDS: AMINO ACIDS IV SCH ×7 (17:34)
[2023-06-10] MEDS: FENTANYL CITR 100 MCG/2 ML IV PRN (18:31)
[2023-06-10] MEDS ORDERED: DIPHENHYDRAMINE 50 MG/ML VIAL ONE (19:56)
[2023-06-10] MEDS: DIPHENHYDRAMINE 50 MG/ML VIAL IV PRN (20:04)
[2023-06-10] MEDS ORDERED: HALOPERIDOL LACT 5 MG/ML INJ IV PRN (21:54)
--- NOTE | 2023-06-10 22:50 | PN ---
Date of Progress Note: 06/10/2023 Chief Complaint: Gastric perforation, GI bleeding, status post surgery for perforated viscus. Review of Systems: The patient is confused, although she is awake, follow some commands, and she denies complaints. Physical Examination: Lungs: Equal chest expansion. No wheezing. Heart: S1, S2. No pericardial friction rub. Abdomen: Soft. Bowel sounds present. Extremities: No edema. Impression And Plan: 1.Acute on chronic kidney injury due to poor renal perfusion. The patient developed toxic acute tub ular necrosis and renal function improved. Acute kidney failure, resolved. Serum creatinine level i mproved to 0.4. Continue total parenteral nutrition. Monitor electrolytes. 2.Hypokalemia, hypomagnesemia, and hypophosphatemia. Continue TPN. 3.Hypernatremia, improved. The patient received IV hydration and TPN prescription was adjusted. 4.Gastric pouch perforation, status post surgery per General Surgery Service. 5.Acute on chronic respiratory failure, status post trach. 6.Anemia due to chronic illness. Packed red blood cell transfusion if hemoglobin is below 7. EB/MODL Voice ID: [id number] Report ID: [id number]
[2023-06-11] MEDS ORDERED: CEFEPIME 2 GM VIAL ONE ×3 (01:16→16:48)
[2023-06-11] MEDS ORDERED: NA CHLORIDE 0.9% 100 ML ONE ×2 (01:16→16:48)
[2023-06-11] MEDS: CEFEPIME 2 GM in NA CHLORIDE 0.9% 100 ML IV SCH ×3 (01:17→16:54)
[2023-06-11 05:35] LABS: Potassium 4.5 mEq/L (3.5-5.1)
--- NOTE | 2023-06-11 07:05 | P.PN ---
Date of Service: 06/11/23 Subjective: resting comfortably in bed, on trach collar confused/disoriented. reportedly pulling things / more agitated 24-48hrs ago on precedex nursing reports minimal clear-green tinged output from ARMIN drains +3 small dark/black stools ROS: 10 point ROS as noted above, otherwise negative Physical Exam: GEN: Awake, NAD. Interactive, confused/disoriented HEENT: Normal conjunctiva, sclera anicteric CV: Regular rate and rhythm, trace b/l pedal edema Pulm: diminished at bases bilaterally, transmitted upper airway sounds ABD: Soft, nondistended, nontender. Neuro: No focal motor deficit. Carl in place (replaced 05/29) Vitals reviewed Problem List: 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 S/P repair 05/05 Acute blood loss anemia secondary to upper GI bleed Hypovolemic shock secondary to GI bleed UTI, MDR Pseudomonas Aeruginosa Acute hypoxic respiratory failure/acute lung injury s/p Tracheostomy 06/04/23 Acetaminophen toxicity, resolved JERI secondary to acute blood loss anemia, hypotension/prerenal state; resolved Hypoglycemia Malnutrition/hypoalbuminemia Anasarca, improved Bipolar disorder/depression/anxiety Seizures/metabolic encephalopathy 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 (05/05) Dr. Foster discussed with bariatric surgeons - not much options, need to wait many months before would attempt any further intra-abdominal procedures J-tube Feeding dc'd due to leak/ nonfunctioning; suspected pulled out partially while patient was moving around/restless last week Patient pulled out her NG tube last week. Cristian is aware and recommend to monitor and not to reinsert NG tube for now. Monitor for aspiration. Continue TPN at the current rate. She completed vancomycin and micafungin. Total 12 units PRBC transfused. Hgb stable last 24-48 hrs Was on continuous PPI IV after episode of GI bleeding transitioned to IV BID dosing 05/31. Continue IV Protonix. Serial abdominal exams UTI, MDR Pseudomonas Aeruginosa Blood cx (05/30): No growth Urine cx (05/30): Pseudomonas Aeruginosa sputum cx (05/31): Pseudomonas Aeruginosa CT chest/abd (05/18) with no obvious infectious findings-atelectasis vs infiltrate CTA chest (05/30): with RLL atelectasis, mild b/l pulm opacities, esophageal dilation. no PE. Anti-Infective Agents - Meropenem (05/06-05/24), (05/30-06/03) - Vancomycin (05/06-05/16) (05/19-06/04) - Micafungin (05/20-06/03) - Cefepime (06/02-) repeat urine and sputum culture 05/30 grew Pseudomonas Aeruginosa again, resistant to merrem merrem switched to cefepime given culture sensitivity 06/02 continue cefepime for 10 days total per ID (06/02-06/12) afebrile, leukocytosis resolved. Acute hypoxic respiratory failure/acute lung injury s/p Tracheostomy 06/04/23 Patient extubated to oxygen by nasal cannula 05/21. Had to be re-intubated overnight 05/29 for hypoxic respiratory failure CTA chest (05/30): No PE. RLL atelectasis, Mild bilateral pulmonary opacities, esophageal dilation pulm out of town until 06/15 Initial Sputum culture grew Pseudomonas and completed 2 week course of merrem, however sputum growing pseudomonas again, now resistant to merrem (06/02) ENT recommended cuffed tracheostomy to reduce risk of aspiration. s/p Tracheostomy 06/04/23. Weaned to trach collar Acetaminophen toxicity, resolved Patient completed acetylcysteine IV infusion for APAP toxicity. Resolved. JERI secondary to acute blood loss anemia, hypotension/prerenal state; resolved Hypoglycemia Malnutrition/hypoalbuminemia JERI resolved. Nephrology is following. Continue TPN. Monitor renal function. Monitor and optimize electrolytes. Fingerstick glucose monitoring. Anasarca, improved Intermittent Lasix and albumin as needed. Thrombocytopenia, resolved No anticoagulation given intermittent anemia requiring blood transfusions. Bipolar disorder/depression/anxiety Oral meds held given n.p.o. status. Seizures/metabolic encephalopathy/Hypoxic encephalopathy Seizures likely metabolic related per Dr. Cameron. On IV Keppra per Dr. Cameron recommendation. transition to [place] discussed since first seizure episoxe (suspected), unable to confirm via EEG, can consider treatment for 1 month, then discontinue keppra No further seizures. VTE: SCD given GI bleed Code: Full Dispo: Social service is exploring disposition to SNF. will need TPN
[2023-06-11] MEDS ORDERED: LEVETIRACETAM 500 MG/5 ML VIAL IV ONE (08:21)
[2023-06-11] MEDS ORDERED: NA CHLORIDE 0.9% 200 ML ONE (08:22)
[2023-06-11] MEDS: PANTOPRAZOLE 40 MG INJ IVP SCH ×2 (08:41→21:12)
[2023-06-11] MEDS: levETIRAcetam 500 MG in NA CHLORIDE 0.9% 100 ML IV SCH ×3 (08:41→22:06)
[2023-06-11] MEDS: MUPIROCIN 2% OINT 22GM TUBE TOP SCH (08:42)
--- NOTE | 2023-06-11 08:45 | P.PN ---
Date of Service: 06/11/23 Chief Complaint: Respiratory failure Subjective: In no apparent distress. No acute events overnight. Remains confused and agitated. No new or worsening complaints at this time. Physical Examination Temp Pulse Resp BP Pulse Ox 96.7 F L 66 26 H 135/87 96 06/11/23 08:00 06/11/23 08:00 06/11/23 08:00 06/11/23 08:00 06/11/23 08:00 General: Awake. In no apparent distress. Oriented x1 HEENT: Atraumatic, Normocephalic. Tracheostomy. Respiratory: Trach. + thick sputum production via trach. Cardiovascular: Regular rate and rhythm. No edema. Gastrointestinal: Abdominal surgical incision sites. Non-distended. Soft. Integumentary: Abdominal surgical site dressing is clean dry and intact. ARMIN drains x3 with minimal serous drainage. Urinary: Carl catheter present Laboratory Data - Reviewed Microbiology Data - Reviewed Imagings Data: - CT abdomen pelvis 05/18: ": Bibasilar lung consolidations are present posteriorly which may represent infiltrate or atelectasis. There is no evidence of intra- abdominal or intrapelvic abscess collection. Small moderate left inguinal hernia containing nonobstructed small bowel." - XR Chest 05/23: "Patchy bibasilar opacities, left greater than right (atelectasis and/or infiltrate)." - CT head spine wo contrast 05/23: "No acute intracranial or extra-axial abnormality. No acute cervical spine injury." - XR Chest 05/29: "The lungs are grossly clear. The heart is normal in size. No displaced fractures.Left-sided venous catheter has tip in the SVC. Enteric tube descends into the upper abdomen." - XR KUB 05/29: "Tip of the enteric tube is in the stomach. Skin tory are noted along the midline. Several drainage catheters are seen. Mildly prominent central small bowel loops identified." - CTA Chest 05/30: " Negative for a pulmonary embolism. Right lower lobe atelectasis. Mild bilateral pulmonary opacities may represent mild interstitial pulmonary edema. Esophageal dilatation" - CT abdomen pelvis w contrast 05/30: ": 4 centimeter subcapsular splenic hematoma mildly diminished in size. 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 Foster on 05/05. - Blood cultures 05/05: No growth to date - Repeat blood culture 05/11: No growth 24 hours - Urine culture 05/06: No growth to date - Pus drainage from midline abdominal incision site by Dr. Foster at bedside 05/13 - CT abdomen pelvis 05/18: ": Bibasilar lung consolidations are present posteriorly which may represent infiltrate or atelectasis. There is no evidence of intra- abdominal or intrapelvic abscess collection. Small moderate left inguinal hernia containing nonobstructed small bowel." - Fluconazole started 05/11 due to high risk/concern for superimposed fungal infection, patient also on TPN. Switched to Micafungin on 05/20 - Completed 14 days Vancomycin and Meropenem Acute Hypoxic Respiratory Failure - pulmonology following - sputum culture 05/11: Pseudomonoas aeruginosa - Treated with Meropenem IV. - Extubated 05/21 - XR Chest 05/29: "The lungs are grossly clear. The heart is normal in size. No displaced fractures.Left-sided venous catheter has tip in the SVC. Enteric tube descends into the upper abdomen." - 05/29: patient became hypoxic, hypotensive and tachycardic and was subsequently intubated - Sputum culture 05/31: Pseudomonoas aeruginosa - Resistant to meropenem. Started on Cefepime 06/02 - Tracheostomy on 06/03 Catheter-Associated Urinary Tract Infection - Urine culture 05/30: Pseudomonoas aeruginosa. resistant to meropenem. - on Cefepime (started 06/02) Anti-Infective Agents - Cefepime (06/02-) - Vancomycin (05/06-05/16) (05/19-06/04) - Micafungin (05/20-06/03) - Meropenem (05/06-05/24), (05/30-06/03) Recommendations - Pseudomonas: Continue Cefepime for 10 days (06/02 to 06/12). on day 9 of 10. - Continue abdominal surgical site wound care per surgery team - Monitor WBC and fever trends - Pressure offloading measures. Turn patient q2h, wedge pillow, low air-loss mattress. Apply barrier cream to sacrum/buttocks - Seizure precautions - Trach care Case discussed with Bam Kaye
--- NOTE | 2023-06-11 13:22 | P.PN ---
Subjective Date of Service: 06/10/23 Chief Complaint: GI bleed, Gastric perforation Subjective: No new changes Physical Examination - Vital Signs Temperature: 98.5 F Blood Pressure: 142/79 Pulse: 94 Respirations: 21 Pulse Ox (%): 95 - Physical Exam General: Alert, In no apparent distress, Confused Neck: Supple Gastrointestinal: Soft and benign (ARMIN serosanguineous.) Musculoskeletal: No erythema, No tenderness Integumentary: No warmth Assessment And Plan - Plan We had a team discussion about disposition options and future surgical plans for reconstruction although no near future plan for that. Protronix DVT prophyl cont TPN.
[2023-06-11] MEDS: DEXMEDETOMIDINE HCL 1,000 MCG in NA CHLORIDE 0.9% 490 ML IV SCH (15:03)
[2023-06-11] MEDS: AMINO ACIDS IV SCH ×5 (16:54)
[2023-06-11] MEDS: [UNRECOGNIZED DRUG - OTHER] IV SCH ×5 (16:54)
[2023-06-11] MEDS: SODIUM ACETATE IV SCH ×5 (16:54)
[2023-06-11] MEDS: MAGNESIUM IV SCH ×5 (16:54)
[2023-06-11] MEDS: DEXTROSE IV SCH ×5 (16:54)
--- NOTE | 2023-06-11 23:32 | PN ---
Date of Progress Note: 06/11/2023 Chief Complaint: Gastric perforation, GI bleeding, status post surgery for perforated viscus. Review of Systems: The patient cannot provide review of systems. She has trach. She denies complaints. Physical Examination: Lungs: Equal chest expansion. No wheezing. Heart: S1, S2. No pericardial friction rub. Abdomen: Soft, benign, nontender. Extremities: Slight peripheral edema. Impression And Plan: 1. Acute on chronic kidney injury due to poor renal perfusion. The patient had nonoliguric acute tubular necrosis secondary to sepsis and renal hypoperfusion. Acute kidney failure, resolved. Serum creatinine level improved to 0.4. Continue parenteral nutrition. 2. Hypokalemia, hypomagnesemia, hypophosphatemia. Continue TPN. 3. Hypernatremia, improved. The patient received IV hydration and TPN prescription was adjusted. 4. Gastric pouch perforation, status post surgery. Recommendation from General Surgery Service. 5. Acute on chronic respiratory failure, status post trach. EB/MODL Voice ID: [id number] Report ID: [id number] ELENI
[2023-06-12] MEDS: HALOPERIDOL LACT 5 MG/ML INJ IV PRN (01:16)
[2023-06-12] MEDS: CEFEPIME 2 GM in NA CHLORIDE 0.9% 100 ML IV SCH ×3 (01:51→17:12)
[2023-06-12 04:32] LABS: Absolute Lymphocytes (CBC) 1.4 K/uL (0.7-4.9); Hematocrit 29.7 % (36.0-45.0); Lymphocytes % 16.1 % (15.3-44.8); MCV 91.7 fL (80-100); MPV 9.3 fL (7.6-11.3); Platelets 198 thou/uL (152-406); RBC Red Blood Cell Count 3.24 M/uL (3.86-4.86)
[2023-06-12 04:58] LABS: Albumin 2.3 g/dL (3.4-5.0); Bilirubin Total 0.6 mg/dL (0.2-1.0); Magnesium 1.9 mg/dL (1.6-2.4); Potassium 4.1 mEq/L (3.5-5.1); Protein, Total 7.5 g/dL (6.4-8.2)
[2023-06-12] MEDS ORDERED: MUPIROCIN 2% OINT 22GM TUBE TOP ONE (08:01)
[2023-06-12] MEDS ORDERED: LEVETIRACETAM 500 MG/5 ML VIAL IV ONE ×2 (08:01→20:48)
[2023-06-12] MEDS ORDERED: NA CHLORIDE 0.9% 100 ML ONE ×4 (08:02→20:48)
[2023-06-12] MEDS ORDERED: CEFEPIME 2 GM VIAL ONE ×2 (08:08→16:33)
[2023-06-12] MEDS: PANTOPRAZOLE 40 MG INJ IVP SCH ×2 (08:22→20:52)
[2023-06-12] MEDS: levETIRAcetam 500 MG in NA CHLORIDE 0.9% 100 ML IV SCH ×2 (08:22→20:52)
[2023-06-12] MEDS: MUPIROCIN 2% OINT 22GM TUBE TOP SCH (08:23)
--- NOTE | 2023-06-12 08:33 | P.PN ---
Date of Service: 06/12/23 Chief Complaint: Respiratory failure Subjective: In no apparent distress. Remains confused and agitated. No acute events reported overnight. Physical Examination Temp Pulse Resp BP Pulse Ox 97.8 F 74 20 143/77 H 99 06/12/23 07:00 06/12/23 07:00 06/12/23 07:00 06/12/23 07:00 06/12/23 07:00 General: Awake. In no apparent distress. Oriented x1 HEENT: Atraumatic, Normocephalic. Tracheostomy. Respiratory: Trach. + thick sputum production via trach. Cardiovascular: Regular rate and rhythm. No edema. Gastrointestinal: Abdominal surgical incision sites. Mild tenderness. Non- distended. Integumentary: Abdominal surgical site dressing is clean dry and intact. ARMIN drains x3 with minimal serous drainage. Urinary: Carl catheter Laboratory Data - Reviewed Microbiology Data - Reviewed Imagings Data: - CT abdomen pelvis 05/18: ": Bibasilar lung consolidations are present posteriorly which may represent infiltrate or atelectasis. There is no evidence of intra- abdominal or intrapelvic abscess collection. Small moderate left inguinal hernia containing nonobstructed small bowel." - XR Chest 05/23: "Patchy bibasilar opacities, left greater than right (atelectasis and/or infiltrate)." - CT head spine wo contrast 05/23: "No acute intracranial or extra-axial abnormality. No acute cervical spine injury." - XR Chest 05/29: "The lungs are grossly clear. The heart is normal in size. No displaced fractures.Left-sided venous catheter has tip in the SVC. Enteric tube descends into the upper abdomen." - XR KUB 05/29: "Tip of the enteric tube is in the stomach. Skin tory are noted along the midline. Several drainage catheters are seen. Mildly prominent central small bowel loops identified." - CTA Chest 05/30: " Negative for a pulmonary embolism. Right lower lobe atelectasis. Mild bilateral pulmonary opacities may represent mild interstitial pulmonary edema. Esophageal dilatation" - CT abdomen pelvis w contrast 05/30: ": 4 centimeter subcapsular splenic hematoma mildly diminished in size. 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 Foster on 05/05. - Blood cultures 05/05: No growth to date - Repeat blood culture 05/11: No growth 24 hours - Urine culture 05/06: No growth to date - Pus drainage from midline abdominal incision site by Dr. Foster at bedside 05/13 - CT abdomen pelvis 05/18: ": Bibasilar lung consolidations are present posteriorly which may represent infiltrate or atelectasis. There is no evidence of intra- abdominal or intrapelvic abscess collection. Small moderate left inguinal hernia containing nonobstructed small bowel." - Fluconazole started 05/11 due to high risk/concern for superimposed fungal infection, patient also on TPN. Switched to Micafungin on 05/20 - Completed 14 days Vancomycin and Meropenem Acute Hypoxic Respiratory Failure - pulmonology following - sputum culture 05/11: Pseudomonoas aeruginosa - Treated with Meropenem IV. - Extubated 05/21 - XR Chest 05/29: "The lungs are grossly clear. The heart is normal in size. No displaced fractures.Left-sided venous catheter has tip in the SVC. Enteric tube descends into the upper abdomen." - 05/29: patient became hypoxic, hypotensive and tachycardic and was subsequently intubated - Sputum culture 05/31: Pseudomonoas aeruginosa - Resistant to meropenem. Started on Cefepime 06/02 - Tracheostomy on 06/03 Catheter-Associated Urinary Tract Infection - Urine culture 05/30: Pseudomonoas aeruginosa. resistant to meropenem. - on Cefepime (started 06/02) Anti-Infective Agents - Cefepime (06/02-06/12) - Vancomycin (05/06-05/16) (05/19-06/04) - Micafungin (05/20-06/03) - Meropenem (05/06-05/24), (05/30-06/03) Recommendations - Pseudomonas: On day 10 of 10 Cefepime IV. Discontinue after today's dosing. - Continue abdominal surgical site wound care per surgery team - Monitor WBC and fever trends - Pressure offloading measures:Turn patient q2h, wedge pillow, low air-loss mattress. Apply barrier cream to sacrum/buttocks - Seizure precautions - Trach care Case discussed with Bam Kaye
--- NOTE | 2023-06-12 08:45 | P.PN ---
Date of Service: 06/12/23 Subjective: continues with confusion, agitation, restlessness overnight. +pulling things reprotedly pulled off inflation bulb from trach increased precedex with some improvvement afebrile ROS: 10 point ROS as noted above, otherwise negative Physical Exam: GEN: Awake, oriented x2, NAD. confused/disoriented HEENT: Normal conjunctiva, sclera anicteric CV: Regular rate and rhythm, trace b/l pedal edema Pulm: diminished at bases bilaterally, transmitted upper airway sounds, +Trach collar ABD: Soft, nondistended, nontender Neuro: No focal motor deficit. 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 S/P repair 05/05 Acute blood loss anemia secondary to upper GI bleed Hypovolemic shock secondary to GI bleed UTI, MDR Pseudomonas Aeruginosa Acute hypoxic respiratory failure/acute lung injury s/p Tracheostomy 06/04/23 Acetaminophen toxicity, resolved JERI secondary to acute blood loss anemia, hypotension/prerenal state; resolved Hypoglycemia Malnutrition/hypoalbuminemia Anasarca, improved Bipolar disorder/depression/anxiety Seizures/metabolic encephalopathy 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 (05/05) Dr. Foster discussed with bariatric surgeons - not much options, need to wait many months before would attempt any further intra-abdominal procedures J-tube Feeding dc'd due to leak/ nonfunctioning; suspected pulled out partially while patient was moving around/restless last week Patient pulled out NG tube last week. Cristian is aware and recommend to monitor and not to reinsert NG tube for now. Monitor for aspiration, Continue TPN at the current rate. She completed vancomycin and micafungin. Total 12 units PRBC transfused. Hgb stable last 48 hrs Was on continuous PPI IV after episode of GI bleeding transitioned to IV BID dosing 05/31. Continue IV Protonix. Serial abdominal exams UTI, MDR Pseudomonas Aeruginosa Blood cx (05/30): No growth Urine cx (05/30): Pseudomonas Aeruginosa sputum cx (05/31): Pseudomonas Aeruginosa CT chest/abd (05/18) with no obvious infectious findings-atelectasis vs infiltrate CTA chest (05/30): with RLL atelectasis, mild b/l pulm opacities, esophageal dilation. no PE. Anti-Infective Agents - Meropenem (05/06-05/24), (05/30-06/03) - Vancomycin (05/06-05/16) (05/19-06/04) - Micafungin (05/20-06/03) - Cefepime (06/02-06/12) repeat urine and sputum culture 05/30 grew Pseudomonas Aeruginosa again, resistant to merrem merrem switched to cefepime given culture sensitivity 06/02 continue cefepime for 10 days total per ID (06/02-06/12) day 10 of 10. afebrile, leukocytosis resolved. Acute hypoxic respiratory failure/acute lung injury s/p Tracheostomy 06/04/23 Patient extubated to oxygen by nasal cannula 05/21. Had to be re-intubated overnight 05/29 for hypoxic respiratory failure CTA chest (05/30): No PE. RLL atelectasis, Mild bilateral pulmonary opacities, esophageal dilation pulm out of town until 06/15 Initial Sputum culture grew Pseudomonas and completed 2 week course of merrem, h owever sputum growing pseudomonas again, now resistant to merrem (06/02) ENT recommended cuffed tracheostomy to reduce risk of aspiration. s/p Tracheostomy 06/04/23. Weaned to trach collar Acetaminophen toxicity, resolved Patient completed acetylcysteine IV infusion for APAP toxicity. Resolved. JERI secondary to acute blood loss anemia, hypotension/prerenal state; resolved Hypoglycemia Malnutrition/hypoalbuminemia JERI resolved. Nephrology is following. Continue TPN. Monitor and optimize electrolytes. Fingerstick glucose monitoring. Anasarca, improved Intermittent Lasix and albumin as needed. Thrombocytopenia, resolved No anticoagulation given intermittent anemia requiring blood transfusions. Bipolar disorder/depression/anxiety Oral meds held given n.p.o. status. Seizures/metabolic encephalopathy/Hypoxic encephalopathy Seizures likely metabolic related per Dr. Cameron. On IV Keppra per Dr. Cameron recommendation. Started 05/24/23 discussed since first seizure episode (suspected), unable to confirm via EEG, can consider treatment for 1 month, then discontinue keppra No further seizures. VTE: SCD given GI bleed Code: Full Dispo: Social service is exploring disposition to SNF. will need TPN weaning precedex
[2023-06-12] MEDS: DEXMEDETOMIDINE HCL 1,000 MCG in NA CHLORIDE 0.9% 490 ML IV SCH ×2 (10:23→21:47)
--- NOTE | 2023-06-12 14:39 | PN ---
Date of Progress Note: 06/12/2023 Subjective: The patient was admitted to the hospital with acute kidney injury, perforated gastric po uch, GI bleed, had acute kidney injury secondary to prerenal with anasarca, did not require any renal replacement therapy. She responded to diuresis. The patient had GI bleed. Physical Examination: Vital Signs: Blood pressure 153/80, pulse of 55, afebrile. Chest: Clear to auscultation. Heart: S1, S2, regular. Abdomen: Soft, nontender. Extremities: No edema. Neurologic: Alert. No focality. Laboratory Data: Hemoglobin 10. Sodium 134, potassium 4.1, bicarb 20, BUN 20, creatinine 0.6. Calc ium 9 magnesium 2, albumin 2.3, corrected calcium is 10.2. Current Medications: The patient on include: 1.TPN. 2.Cefepime. 3.Labetalol p.r.n. 4.Keppra. 5.Geodon. 6.Pantoprazole. 7.Fentanyl. Assessment And Plan: 1.Acute kidney injury secondary to cardiorenal, poor perfusion, ATN, recovered, resolved. Normal vo lume. I am going to hold on the diuresis for the time being. We will monitor. 2.Hyponatremia, dilutional, recovered, sodium stable. 3.Electrolyte imbalance, hypokalemia, hypomagnesemia, hypophosphatemia. Continue current TPN dose a ppropriate. 4.Respiratory failure secondary to pneumonia, congestive heart failure, currently normal volume, hol d the diuresis, continue followup with primary. 5.UTI, multidrug resistant, status post treatment, recovered. 6.Perforated viscus, GI bleed. Follow up with Surgery and GI, p.r.n. transfusion. 7.Deconditioning, continue PT/OT. MA/MODL Voice ID: [id number] Report ID: [id number]
--- NOTE | 2023-06-12 16:52 | PN ---
Date of Progress Note: 06/12/2023 Diagnosis: Status post gastric perforation. Subjective: Patient is doing better from the surgical standpoint. She responds, although she is not completely oriented in time and person. She cooperates, although sometimes she is trying to pull he r lines. Objective: Chest: Clear. Abdomen: Soft and depressible. Incision is intact. No drainage. No cellulitis present. Bowel carlos alberto nds positive. ARMIN drain serosanguineous. The patient had a bowel movement. Extremities: Good capillary refill. Plan: Once again, continue with disposition until definitive gastric surgery can be done in the futu re. Continue TPN, range of motion, rehabilitation, strengthening. GI and DVT prophylaxis. Incentiv e spirometry. Patient has a tracheostomy in place. HM/MODL Voice ID: [id number] Report ID: [id number]
[2023-06-12] MEDS ORDERED: DIPHENHYDRAMINE 50 MG/ML VIAL ONE (17:49)
[2023-06-12] MEDS ORDERED: LORazepam 2 MG/ML VIAL ONE (17:50)
[2023-06-12] MEDS: LORazepam 2 MG/ML VIAL IV PRN (17:51)
[2023-06-12] MEDS: DIPHENHYDRAMINE 50 MG/ML VIAL IV PRN (17:51)
[2023-06-12] MEDS: SODIUM ACETATE IV SCH ×7 (17:52)
[2023-06-12] MEDS: LIPIDS 20% IV SCH ×7 (17:52)
[2023-06-12] MEDS: AMINO ACIDS IV SCH ×7 (17:52)
[2023-06-12] MEDS: [UNRECOGNIZED DRUG - OTHER] IV SCH ×7 (17:52)
[2023-06-12] MEDS: DEXTROSE 20% IV SCH ×7 (17:52)
[2023-06-13] MEDS ORDERED: NA CHLORIDE 0.9% 100 ML ONE ×3 (00:53→20:47)
[2023-06-13] MEDS ORDERED: Meropenem 1000 MG/VIAL IV ONE (00:53)
[2023-06-13] MEDS: CEFEPIME 2 GM in NA CHLORIDE 0.9% 100 ML IV SCH ×2 (01:01→08:00)
[2023-06-13] MEDS: FENTANYL CITR 100 MCG/2 ML IV PRN (02:01)
[2023-06-13 04:49] LABS: Absolute Lymphocytes (CBC) 1.3 K/uL (0.7-4.9); Hematocrit 27.5 % (36.0-45.0); Lymphocytes % 20.6 % (15.3-44.8); MCV 92.3 fL (80-100); MPV 9.3 fL (7.6-11.3); Platelets 209 thou/uL (152-406); RBC Red Blood Cell Count 2.98 M/uL (3.86-4.86)
[2023-06-13 05:05] LABS: Albumin 2.2 g/dL (3.4-5.0); Bilirubin Total 0.6 mg/dL (0.2-1.0); Magnesium 1.9 mg/dL (1.6-2.4); Phosphorus 3.5 mg/dL (2.5-4.9); Protein, Total 7.2 g/dL (6.4-8.2)
[2023-06-13] MEDS: LORazepam 2 MG/ML VIAL IV PRN ×4 (06:14→23:12)
[2023-06-13] MEDS ORDERED: CEFEPIME 2 GM VIAL ONE (07:45)
[2023-06-13] MEDS ORDERED: LEVETIRACETAM 500 MG/5 ML VIAL IV ONE (07:45)
[2023-06-13] MEDS: PANTOPRAZOLE 40 MG INJ IVP SCH ×2 (08:01→20:44)
[2023-06-13] MEDS: levETIRAcetam 500 MG in NA CHLORIDE 0.9% 100 ML IV SCH ×2 (08:01→20:45)
[2023-06-13] MEDS: MUPIROCIN 2% OINT 22GM TUBE TOP SCH (08:01)
[2023-06-13] MEDS: DEXMEDETOMIDINE HCL 1,000 MCG in NA CHLORIDE 0.9% 490 ML IV SCH ×2 (08:25→21:30)
--- NOTE | 2023-06-13 08:27 | P.PN ---
Date of Service: 06/13/23 Chief Complaint: Respiratory failure Subjective: Patient seen and examined at bedside. In no apparent distress. No acute events overnight. Patient's father and mother at bedside. Physical Examination Temp Pulse Resp BP Pulse Ox 97 F 52 24 H 104/61 99 06/13/23 07:00 06/13/23 07:00 06/13/23 07:00 06/13/23 07:00 06/13/23 07:00 General: Awake. In no apparent distress. Oriented x2 HEENT: Atraumatic, Normocephalic. Tracheostomy. Respiratory: Trach. Cardiovascular: Regular rate and rhythm. No edema. Gastrointestinal: Abdominal surgical incision sites. Mild tenderness. Non- distended. Integumentary: Abdominal surgical site dressing is clean dry and intact. ARMIN drains x3 with minimal serous drainage. Urinary: PureWick Laboratory Data - Reviewed Microbiology Data - Reviewed Imagings Data: - CT abdomen pelvis 05/18: ": Bibasilar lung consolidations are present posteriorly which may represent infiltrate or atelectasis. There is no evidence of intra- abdominal or intrapelvic abscess collection. Small moderate left inguinal hernia containing nonobstructed small bowel." - XR Chest 05/23: "Patchy bibasilar opacities, left greater than right ( atelectasis and/or infiltrate)." - CT head spine wo contrast 05/23: "No acute intracranial or extra-axial abnormality. No acute cervical spine injury." - XR Chest 05/29: "The lungs are grossly clear. The heart is normal in size. No displaced fractures.Left-sided venous catheter has tip in the SVC. Enteric tube descends into the upper abdomen." - XR KUB 05/29: "Tip of the enteric tube is in the stomach. Skin tory are noted along the midline. Several drainage catheters are seen. Mildly prominent central small bowel loops identified." - CTA Chest 05/30: " Negative for a pulmonary embolism. Right lower lobe atelectasis. Mild bilateral pulmonary opacities may represent mild interstitial pulmonary edema. Esophageal dilatation" - CT abdomen pelvis w contrast 05/30: ": 4 centimeter subcapsular splenic hematoma mildly diminished in size. 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 Foster on 05/05. - Blood cultures 05/05: No growth to date - Repeat blood culture 05/11: No growth 24 hours - Urine culture 05/06: No growth to date - Pus drainage from midline abdominal incision site by Dr. Foster at bedside 05/13 - CT abdomen pelvis 05/18: ": Bibasilar lung consolidations are present posterio rly which may represent infiltrate or atelectasis. There is no evidence of intra- abdominal or intrapelvic abscess collection. Small moderate left inguinal hernia containing nonobstructed small bowel." - Fluconazole started 05/11 due to high risk/concern for superimposed fungal infection, patient also on TPN. Switched to Micafungin on 05/20 - Completed 14 days Vancomycin and Meropenem Acute Hypoxic Respiratory Failure - pulmonology following - sputum culture 05/11: Pseudomonoas aeruginosa - Treated with Meropenem IV. - Extubated 05/21 - XR Chest 05/29: "The lungs are grossly clear. The heart is normal in size. No displaced fractures.Left-sided venous catheter has tip in the SVC. Enteric tube descends into the upper abdomen." - 05/29: patient became hypoxic, hypotensive and tachycardic and was subsequently intubated - Sputum culture 05/31: Pseudomonoas aeruginosa - Resistant to meropenem. Started on Cefepime 06/02 - Tracheostomy on 06/03 Catheter-Associated Urinary Tract Infection - Urine culture 05/30: Pseudomonoas aeruginosa. resistant to meropenem. - Completed 10 days Cefepime (06/02-06/12) Anti-Infective Agents - Cefepime (06/02-06/12) - Vancomycin (05/06-05/16) (05/19-06/04) - Micafungin (05/20-06/03) - Meropenem (05/06-05/24), (05/30-06/03) Recommendations - Pseudomonas sputum and urine: completed 10 days Cefepime. Continue to monitor for new or worsening s/s of infection. - Continue abdominal surgical site wound care per surgery team - Monitor WBC and fever trends - Pressure offloading measures:Turn patient q2h, wedge pillow, low air-loss mattress. Apply barrier cream to sacrum/buttocks - Seizure precautions - Trach care Case discussed with Bam Kaye
--- NOTE | 2023-06-13 08:58 | P.PN ---
Date of Service: 06/13/23 Subjective: continues with confusion, agitation, restlessness overnight. seems more alert/oriented this morning continues on precedex on room air via trach afebrile ROS: 10 point ROS as noted above, otherwise negative Physical Exam: GEN: Awake, oriented x2, NAD. confused/disoriented HEENT: Normal conjunctiva, sclera anicteric CV: Regular rate and rhythm, trace b/l pedal edema Pulm: diminished at bases bilaterally, transmitted upper airway sounds, +Trach collar ABD: Soft, nondistended, nontender Neuro: No focal motor deficit. 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 S/P repair 05/05 Acute blood loss anemia secondary to upper GI bleed Hypovolemic shock secondary to GI bleed UTI, MDR Pseudomonas Aeruginosa Acute hypoxic respiratory failure/acute lung injury s/p Tracheostomy 06/04/23 Acetaminophen toxicity, resolved JERI secondary to acute blood loss anemia, hypotension/prerenal state; resolved Hypoglycemia Malnutrition/hypoalbuminemia Anasarca, improved Bipolar disorder/depression/anxiety Seizures/metabolic encephalopathy 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 (05/05) Dr. Foster discussed with bariatric surgeons - not much options, need to wait many months before would attempt any further intra-abdominal procedures J-tube Feeding dc'd due to leak/ nonfunctioning; suspected pulled out partially while patient was moving around/restless last week Patient pulled out NG tube last week. Cristian is aware and recommend to monitor and not to reinsert NG tube for now. Monitor for aspiration, Continue TPN at the current rate. Total 12 units PRBC transfused. Hgb stable last 48 hrs Was on continuous PPI IV after episode of GI bleeding transitioned to IV BID dosing 05/31. Continue IV Protonix. Serial abdominal exams UTI, MDR Pseudomonas Aeruginosa Blood cx (05/30): No growth Urine cx (05/30): Pseudomonas Aeruginosa sputum cx (05/31): Pseudomonas Aeruginosa CT chest/abd (05/18) with no obvious infectious findings-atelectasis vs infiltrate CTA chest (05/30): with RLL atelectasis, mild b/l pulm opacities, esophageal dilation. no PE. s/p Anti-Infective Agents Meropenem (05/06-05/24), (05/30-06/03) Vancomycin (05/06-05/16) (05/19-06/04) Micafungin (05/20-06/03) Cefepime (06/02-06/12) completed 10 day course of cefepime (06/02-06/12) afebrile, leukocytosis resolved. Acute hypoxic respiratory failure/acute lung injury s/p Tracheostomy 06/04/23 Patient extubated to oxygen by nasal cannula 05/21. Had to be re-intubated overnight 05/29 for hypoxic respiratory failure CTA chest (05/30): No PE. RLL atelectasis, Mild bilateral pulmonary opacities, esophageal dilation pulm out of town until 06/15 Initial Sputum culture grew Pseudomonas and completed 2 week course of merrem, however sputum growing pseudomonas again, now resistant to merrem (06/02) ENT recommended cuffed tracheostomy to reduce risk of aspiration. s/p Tracheostomy 06/04/23. Weaned to trach collar Acetaminophen toxicity, resolved Patient completed acetylcysteine IV infusion for APAP toxicity. Resolved. JERI secondary to acute blood loss anemia, hypotension/prerenal state; resolved Hypoglycemia Malnutrition/hypoalbuminemia JERI resolved. Nephrology is following. Continue TPN. Monitor and optimize electrolytes. Fingerstick glucose monitoring. Anasarca, improved Intermittent Lasix and albumin as needed. Thrombocytopenia, resolved No anticoagulation given intermittent anemia requiring blood transfusions. Bipolar disorder/depression/anxiety Oral meds held given n.p.o. status. Seizures/metabolic encephalopathy/Hypoxic encephalopathy Seizures likely metabolic related per Dr. Cameron. On IV Keppra per Dr. Cameron recommendation. Started 05/24/23 discussed since first seizure episode (suspected), unable to confirm via EEG, can consider treatment for 1 month, then discontinue keppra (05/24/23-06/23/23) No further seizures. VTE: SCD given GI bleed Code: Full Dispo: Social service is exploring disposition to SNF. weaning precedex
--- NOTE | 2023-06-13 12:36 | PN ---
Date of Progress Note: 06/13/2023 Subjective: The patient was admitted to the hospital with sepsis, perforated viscus, gastric pouch. The patient treated. Had acute kidney injury secondary to poor perfusion ATN. Did not require any renal replacement therapy. The patient intubated, extubated. Had trach. Objective: Vital Signs: Blood pressure 122/75, pulse of 53. Chest: Clear to auscultation. Heart: S1, S2. Regular. Abdomen: Soft, nontender. Dressing clean. Extremities: No edema. Neurologic: Alert, occasionally confused. No focality. Laboratory Data: Hemoglobin 9.2, WBC 6.3, sodium 136, potassium 4, bicarb 21, BUN 21, creatinine 0.5 , calcium 8.7, phosphorus 3.5, magnesium 1.9, albumin 2.2, corrected calcium is at 10.3. Current Medications: The patient on, it includes: 1.Phenergan. 2.Tylenol. 3.Haloperidol. 4.Keppra. 5.Pantoprazole. 6.Fentanyl. Assessment And Plan: 1.Acute kidney injury secondary to cardiorenal, poor perfusion, ATN, recovered, resolved. Currently , normal volume. We will continue p.r.n. Lasix. 2.Hypertension, controlled, optimal. 3.Hyponatremia, recovered, resolved. 4.Electrolyte imbalance, status post supplement. Continue TPN adjustment. 5.Perforated viscus. Follow up with GI and Surgery. NATALIIA Voice ID: [id number] Report ID: [id number]
[2023-06-13] MEDS: SODIUM ACETATE IV SCH ×5 (16:50)
[2023-06-13] MEDS: MAGNESIUM IV SCH ×5 (16:50)
[2023-06-13] MEDS: [UNRECOGNIZED DRUG - OTHER] IV SCH ×5 (16:50)
[2023-06-13] MEDS: DEXTROSE IV SCH ×5 (16:50)
[2023-06-13] MEDS: AMINO ACIDS IV SCH ×5 (16:50)
[2023-06-13] MEDS: HALOPERIDOL LACT 5 MG/ML INJ IV PRN (23:35)
[2023-06-14 03:58] LABS: Absolute Lymphocytes (CBC) 1.4 K/uL (0.7-4.9); Hematocrit 26.7 % (36.0-45.0); Lymphocytes % 17.3 % (15.3-44.8); MCV 91.8 fL (80-100); MPV 9.8 fL (7.6-11.3); Platelets 188 thou/uL (152-406); RBC Red Blood Cell Count 2.91 M/uL (3.86-4.86)
[2023-06-14] MEDS ORDERED: LORazepam 2 MG/ML VIAL ONE ×2 (06:46→17:15)
[2023-06-14] MEDS: LORazepam 2 MG/ML VIAL IV PRN ×5 (06:49→22:00)
--- NOTE | 2023-06-14 08:27 | P.PN ---
Date of Service: 06/14/23 Subjective: feels short of breath today trach replaced yesterday with Dr. gusman and placed 2 ml of air into cuff more cooperative / less agitated in morning. worsened in afternoon/evenings Continues on precedex - more alert / awake today afebrile ROS: 10 point ROS as noted above, otherwise negative Physical Exam: GEN: Awake, oriented x2, NAD. confused/disoriented HEENT: Normal conjunctiva, sclera anicteric CV: Regular rate and rhythm, trace b/l pedal edema Pulm: diminished at bases bilaterally, transmitted upper airway sounds, +Trach collar ABD: Soft, nondistended, nontender Neuro: No focal motor deficit. 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 S/P repair 05/05 Acute blood loss anemia secondary to upper GI bleed Hypovolemic shock secondary to GI bleed UTI, MDR Pseudomonas Aeruginosa Acute hypoxic respiratory failure/acute lung injury s/p Tracheostomy 06/04/23 Acetaminophen toxicity, resolved JERI secondary to acute blood loss anemia, hypotension/prerenal state; resolved Hypoglycemia Malnutrition/hypoalbuminemia Anasarca, improved Bipolar disorder/depression/anxiety Seizures/metabolic encephalopathy/Hypoxic encephalopathy 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 (05/05) Dr. Foster discussed with bariatric surgeons - not much options, need to wait many months before would attempt any further intra-abdominal procedures J-tube Feeding dc'd due to leak/ nonfunctioning; suspected pulled out partially while patient was moving around/restless last week Patient pulled out NG tube last week. Cristian is aware and recommend to monitor and not to reinsert NG tube for now. Monitor for aspiration, Continue TPN at the current rate. Total 12 units PRBC transfused. Hgb stable last 48 hrs Was on continuous PPI IV after episode of GI bleeding transitioned to IV BID dosing 05/31. Continue IV Protonix. Serial abdominal exams UTI, MDR Pseudomonas Aeruginosa Blood cx (05/30): No growth Urine cx (05/30): Pseudomonas Aeruginosa sputum cx (05/31): Pseudomonas Aeruginosa CT chest/abd (05/18) with no obvious infectious findings-atelectasis vs infiltrate CTA chest (05/30): with RLL atelectasis, mild b/l pulm opacities, esophageal dilation. no PE. s/p Anti-Infective Agents Meropenem (05/06-05/24), (05/30-06/03) Vancomycin (05/06-05/16) (05/19-06/04) Micafungin (05/20-06/03) Cefepime (06/02-06/12) completed 10 day course of cefepime (06/02-06/12) afebrile, leukocytosis resolved. Acute hypoxic respiratory failure/acute lung injury s/p Tracheostomy 06/04/23 Patient extubated to oxygen by nasal cannula 05/21. Had to be re-intubated overnight 05/29 for hypoxic respiratory failure CTA chest (05/30): No PE. RLL atelectasis, Mild bilateral pulmonary opacities, esophageal dilation pulm out of town until 06/15 Initial Sputum culture grew Pseudomonas and completed 2 week course of merrem, however sputum growing pseudomonas again, now resistant to merrem (06/02) ENT recommended cuffed tracheostomy to reduce risk of aspiration. s/p Tracheostomy 06/04/23. Weaned to trach collar Acetaminophen toxicity, resolved Patient completed acetylcysteine IV infusion for APAP toxicity. Resolved. JERI secondary to acute blood loss anemia, hypotension/prerenal state; resolved Hypoglycemia Malnutrition/hypoalbuminemia JERI resolved. Nephrology is following. Continue TPN. Monitor and optimize electrolytes. Fingerstick glucose monitoring. Anasarca, improved Intermittent Lasix and albumin as needed. Thrombocytopenia, resolved No anticoagulation given intermittent anemia requiring blood transfusions. Bipolar disorder/depression/anxiety Oral meds held given n.p.o. status. Seizures/metabolic encephalopathy/Hypoxic encephalopathy Seizures likely metabolic related per Dr. Cameron. On IV Keppra per Dr. Cameron recommendation. Started 05/24/23 discussed since first seizure episode (suspected), unable to confirm via EEG, can consider treatment for 1 month, then discontinue keppra (05/24/23-06/23/23) No further seizures. VTE: SCD given GI bleed Code: Full Dispo: Social service is exploring disposition to SNF. weaning precedex
[2023-06-14] MEDS ORDERED: LEVETIRACETAM 500 MG/5 ML VIAL IV ONE ×2 (08:35→20:25)
[2023-06-14] MEDS ORDERED: NA CHLORIDE 0.9% 100 ML ONE ×3 (08:35→20:26)
[2023-06-14] MEDS: PANTOPRAZOLE 40 MG INJ IVP SCH ×2 (08:45→20:31)
[2023-06-14] MEDS: MUPIROCIN 2% OINT 22GM TUBE TOP SCH (08:45)
[2023-06-14] MEDS: levETIRAcetam 500 MG in NA CHLORIDE 0.9% 100 ML IV SCH ×2 (08:45→20:32)
--- NOTE | 2023-06-14 08:50 | P.PN ---
Date of Service: 06/14/23 Chief Complaint: Respiratory failure Subjective: No acute events overnight. Patient resting comfortably in bed. On trach collar. No new or worsening complaints at this time. Physical Examination Temp Pulse Resp BP Pulse Ox 96.9 F 66 23 H 124/98 H 98 06/14/23 04:00 06/14/23 06:00 06/14/23 06:00 06/14/23 06:00 06/14/23 06:00 General: Awake. In no apparent distress. Oriented x2 HEENT: Atraumatic, Normocephalic. Tracheostomy. Respiratory: Trach. Cardiovascular: Regular rate and rhythm. No edema. Gastrointestinal: Abdominal surgical incision sites. Mild tenderness. Non- distended. Integumentary: Abdominal surgical site dressing is clean dry and intact. ARMIN drains x3 with minimal serous drainage. Urinary: PureWick Laboratory Data - Reviewed Microbiology Data - Reviewed Imagings Data: - CT abdomen pelvis 05/18: ": Bibasilar lung consolidations are present posteriorly which may represent infiltrate or atelectasis. There is no evidence of intra- abdominal or intrapelvic abscess collection. Small moderate left inguinal hernia containing nonobstructed small bowel." - XR Chest 05/23: "Patchy bibasilar opacities, left greater than right (a telectasis and/or infiltrate)." - CT head spine wo contrast 05/23: "No acute intracranial or extra-axial abnormality. No acute cervical spine injury." - XR Chest 05/29: "The lungs are grossly clear. The heart is normal in size. No displaced fractures.Left-sided venous catheter has tip in the SVC. Enteric tube descends into the upper abdomen." - XR KUB 05/29: "Tip of the enteric tube is in the stomach. Skin tory are noted along the midline. Several drainage catheters are seen. Mildly prominent central small bowel loops identified." - CTA Chest 05/30: " Negative for a pulmonary embolism. Right lower lobe atelectasis. Mild bilateral pulmonary opacities may represent mild interstitial pulmonary edema. Esophageal dilatation" - CT abdomen pelvis w contrast 05/30: ": 4 centimeter subcapsular splenic hematoma mildly diminished in size. 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 Foster on 05/05. - Blood cultures 05/05: No growth to date - Repeat blood culture 05/11: No growth 24 hours - Urine culture 05/06: No growth to date - Pus drainage from midline abdominal incision site by Dr. Foster at bedside 05/13 - CT abdomen pelvis 05/18: ": Bibasilar lung consolidations are present posteriorly which may represent infiltrate or atelectasis. There is no evidence of intra- abdominal or intrapelvic abscess collection. Small moderate left inguinal hernia containing nonobstructed small bowel." - Fluconazole started 05/11 due to high risk/concern for superimposed fungal infection, patient also on TPN. Switched to Micafungin on 05/20 - Completed 14 days Vancomycin and Meropenem - Completed 14 days Micafungin Acute Hypoxic Respiratory Failure - pulmonology following - sputum culture 05/11: Pseudomonoas aeruginosa - Treated with Meropenem IV. - Extubated 05/21 - XR Chest 05/29: "The lungs are grossly clear. The heart is normal in size. No displaced fractures.Left-sided venous catheter has tip in the SVC. Enteric tube descends into the upper abdomen." - 05/29: patient became hypoxic, hypotensive and tachycardic and was subsequently intubated - Sputum culture 05/31: Pseudomonoas aeruginosa - Completed 10 days Cefepime 06/02-06/12 - Tracheostomy on 06/03 Catheter-Associated Urinary Tract Infection - Urine culture 05/30: Pseudomonoas aeruginosa. resistant to meropenem. - Completed 10 days Cefepime (06/02-06/12) Anti-Infective Agents - Cefepime (06/02-06/12) - Vancomycin (05/06-05/16) (05/19-06/04) - Micafungin (05/20-06/03) - Meropenem (05/06-05/24), (05/30-06/03) Recommendations - Pseudomonas sputum and urine: completed 10 days Cefepime. Continue to monitor for new or worsening s/s of infection. Remains afebrile. No leukocytosis. - Abdominal surgical site wound care per surgery team - Monitor WBC and fever trends - Pressure offloading measures:Turn patient q2h, wedge pillow, low air-loss mattress. Apply barrier cream to sacrum/buttocks - Seizure precautions - Trach care Case discussed with Bam Kaye
[2023-06-14] MEDS: DEXMEDETOMIDINE HCL 1,000 MCG in NA CHLORIDE 0.9% 490 ML IV SCH ×2 (09:08→22:36)
[2023-06-14 09:53] LABS: Albumin 2.3 g/dL (3.4-5.0); Bilirubin Total 0.5 mg/dL (0.2-1.0); Potassium 4.2 mEq/L (3.5-5.1); Protein, Total 6.9 g/dL (6.4-8.2)
[2023-06-14] MEDS: HALOPERIDOL LACT 5 MG/ML INJ IV PRN ×2 (12:01→20:00)
--- NOTE | 2023-06-14 13:00 | P.PN ---
Subjective Date of Service: 06/13/23 Chief Complaint: GI bleed, Gastric perforation Subjective: Improving Review of Systems General: Fever (no), Chills (no) Cardiovascular: Chest Pain (no) Gastrointestinal: Nausea (no), Vomiting (no), Abdominal Pain (no), Melena (no), Hematochezia (no) Physical Examination - Vital Signs Temperature: 97.2 F Blood Pressure: 90/77 Pulse: 95 Respirations: 22 Pulse Ox (%): 100 - Physical Exam General: Alert, In no apparent distress, Cooperative HEENT: PERRLA, EOMI Neck: Supple, Other (tracheostomy in place) Respiratory: Normal air movement Cardiovascular: No edema, Normal pulses Gastrointestinal: Normal bowel sounds, Soft and benign, No rebound, No guarding, Other (ARMIN clear) Musculoskeletal: No erythema, No tenderness, No warmth Integumentary: No rashes, No breakdown, No erythema, No warmth, No cyanosis Neurological: Normal tone Assessment And Plan - Plan We had a team discussion for disposition options and future surgical plans for reconstruction although no near future plan for that. Pt mother present and questions answered protecting patient. Protronix DVT prophyl cont TPN.
--- NOTE | 2023-06-14 15:10 | PN ---
Date of Progress Note: 06/14/2023 Diagnosis: Perforated gastric ulcers with gastric rupture and emergent laparotomy, defunctionalizati on of the David-en-Y. Subjective: The patient now is TPN-dependent. The patient is doing better. This is the first time I saw her really sitting down, the hairs being done by the nurses and she looks more awake and strong er, but she is still confused and weak. Objective: Chest: Clear. Abdomen: Intact surgical site. Extremities: Good capillary refill. No calf tenderness. Plan: Once again, continue medical service and rehabilitation until surgery can be done in the [facility], trying to attempt to put this together. I discussed the case yesterday with the patient's mom and on the , I discussed that with the patient's and we discussed for about an hour here in the ICU area about what we have done so far for the last month, what we have investigated, the future plans, the current situations, and he understand that. We will continue once again the current jerryjuliana garlandnt. TABATHA/JIMMIE Voice ID: [id number] Report ID: [id number]
--- NOTE | 2023-06-14 15:51 | P.PN ---
Subjective Date of Service: 06/14/23 Chief Complaint: GI bleed, Gastric perforation Subjective: No new changes Physical Examination - Vital Signs Temperature: 97.2 F Blood Pressure: 107/63 Pulse: 71 Respirations: 24 Pulse Ox (%): 97 - Physical Exam General: Other (chronically ill-appearing) HEENT: Atraumatic, Normocephalic Neck: Supple Respiratory: Other (symmetric chest expansion) Cardiovascular: No rubs, No murmurs Gastrointestinal: Soft and benign, No guarding Musculoskeletal: No clubbing Integumentary: No warmth Neurological: Normal tone Urinary: Other (no bladder distention) External genitalia: Deferred Rectal: Deferred Assessment And Plan - Plan 1. Acute kidney injury secondary to poor perfusion ATN, toxic ATN. SCr improved to 0.4-0.6. Continue TPN same rate. Monitor renal panel. 2. Hypokalemia, hypomagnesemia, hypophosphatemia. Replete prn. 3. Hypernatremia. Improved. IV hydration & TPN as above. 4. Gastric pouch perforation, status post surgery. Per Gen Surg service. 5. Acute/chronic respiratory failure. +Trach. Per ICU team. 6. Anemia. pRBC transf prn for Hgb < 7.0. No indication for DAMON.
[2023-06-14] MEDS: [UNRECOGNIZED DRUG - OTHER] IV SCH ×7 (17:08)
[2023-06-14] MEDS: LIPIDS 20% IV SCH ×7 (17:08)
[2023-06-14] MEDS: SODIUM ACETATE IV SCH ×7 (17:08)
[2023-06-14] MEDS: AMINO ACIDS IV SCH ×7 (17:08)
[2023-06-14] MEDS: DEXTROSE 20% IV SCH ×7 (17:08)
[2023-06-14] MEDS ORDERED: ZIPRASIDONE MESYLA 20 MG/VIAL IM ONE (20:50)
[2023-06-14] MEDS ORDERED: WATER FOR INJ,STERILE 10 ML ONE (20:54)
[2023-06-14] MEDS: ZIPRASIDONE MESYLA 20 MG/VIAL IM PRN (21:00)
[2023-06-15] MEDS: LORazepam 2 MG/ML VIAL IV PRN ×4 (02:30→22:20)
[2023-06-15] MEDS: HALOPERIDOL LACT 5 MG/ML INJ IV PRN ×3 (05:15→22:20)
[2023-06-15] MEDS: FENTANYL CITR 100 MCG/2 ML IV PRN ×2 (05:26→08:40)
--- NOTE | 2023-06-15 07:46 | P.PN ---
Date of Service: 06/15/23 Subjective: more agitated / restless / confused overnight had to be restrained overnight. Nurses reported multiple attempts of Pt trying to get up out of bed w/o assistance. +pulling at lines / IV given PRN haldol / ativan afebrile ROS: 10 point ROS as noted above, otherwise negative Physical Exam: GEN: Awake, oriented x2, NAD. pleasant, confused HEENT: Normal conjunctiva, sclera anicteric CV: Regular rate and rhythm, trace b/l pedal edema Pulm: diminished at bases bilaterally, clear bilaterally ABD: Soft, nondistended, nontender Neuro: No focal motor deficit. 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 S/P repair 05/05 Acute blood loss anemia secondary to upper GI bleed Hypovolemic shock secondary to GI bleed UTI, MDR Pseudomonas Aeruginosa Acute hypoxic respiratory failure/acute lung injury s/p Tracheostomy 06/04/23 Acetaminophen toxicity, resolved JERI secondary to acute blood loss anemia, hypotension/prerenal state; resolved Hypoglycemia Malnutrition/hypoalbuminemia Anasarca, improved Bipolar disorder/depression/anxiety Seizures/metabolic encephalopathy/Hypoxic encephalopathy 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 (05/05) Dr. Foster discussed with bariatric surgeons - not much options, need to wait many months before would attempt any further intra-abdominal procedures J-tube Feeding dc'd due to leak/ nonfunctioning; suspected pulled out partially while patient was moving around/restless last week Patient pulled out NG tube last week. Cristian is aware and recommend to monitor and not to reinsert NG tube for now. Monitor for aspiration, Continue TPN at the current rate. Total 12 units PRBC transfused. Hgb stable last 48 hrs Was on continuous PPI IV after episode of GI bleeding transitioned to IV BID dosing 05/31. Continue IV Protonix BID Serial abdominal exams discussed with Dr. Foster, ok to consider starting lovenox dvt prophylaxis tomorrow UTI, MDR Pseudomonas Aeruginosa s/p Anti-Infective Agents Meropenem (05/06-05/24), (05/30-06/03) Vancomycin (05/06-05/16) (05/19-06/04) Micafungin (05/20-06/03) Cefepime (06/02-06/12) afebrile, leukocytosis resolved. Acute hypoxic respiratory failure/acute lung injury s/p Tracheostomy 06/04/23 Patient extubated to oxygen by nasal cannula 05/21. Had to be re-intubated overnight 05/29 for hypoxic respiratory failure CTA chest (05/30): No PE. RLL atelectasis, Mild bilateral pulmonary opacities, esophageal dilation Initial Sputum culture grew Pseudomonas and completed 2 week course of merrem, however sputum growing pseudomonas again, now resistant to merrem (06/02) ENT recommended cuffed tracheostomy to reduce risk of aspiration. s/p Tracheostomy 06/04/23. Weaned to trach collar Acetaminophen toxicity, resolved Patient completed acetylcysteine IV infusion for APAP toxicity. Resolved. JERI secondary to acute blood loss anemia, hypotension/prerenal state; resolved Hypoglycemia Malnutrition/hypoalbuminemia JERI resolved. Nephrology is following. Continue TPN. Monitor and optimize electrolytes. Fingerstick glucose monitoring. Anasarca, improved Intermittent Lasix and albumin as needed. Thrombocytopenia, resolved No anticoagulation given intermittent anemia requiring blood transfusions. Bipolar disorder/depression/anxiety Oral meds held given n.p.o. status. Seizures/metabolic encephalopathy/Hypoxic encephalopathy Seizures likely metabolic related per Dr. Cameron. On IV Keppra per Dr. Cameron recommendation. Started 05/24/23 discussed since first seizure episode (suspected), unable to confirm via EEG, can consider treatment for 1 month, then discontinue keppra (05/24/23-06/23/23) No further seizures. VTE: SCD given GI bleed; consider lovenox tomorrow Code: Full Dispo: Social service is exploring disposition to SNF. need to wean off precedex and finish keppra
[2023-06-15] MEDS ORDERED: LEVETIRACETAM 500 MG/5 ML VIAL IV ONE ×2 (08:05→20:12)
[2023-06-15] MEDS ORDERED: NA CHLORIDE 0.9% 100 ML ONE ×2 (08:05→20:12)
[2023-06-15] MEDS: DEXMEDETOMIDINE HCL 1,000 MCG in NA CHLORIDE 0.9% 490 ML IV SCH ×2 (08:37→17:24)
[2023-06-15] MEDS: levETIRAcetam 500 MG in NA CHLORIDE 0.9% 100 ML IV SCH ×2 (08:37→20:27)
[2023-06-15] MEDS: PANTOPRAZOLE 40 MG INJ IVP SCH ×2 (08:37→20:28)
[2023-06-15] MEDS: MUPIROCIN 2% OINT 22GM TUBE TOP SCH (08:37)
[2023-06-15] MEDS ORDERED: FENTANYL CITR 100 MCG/2 ML ONE (08:39)
--- NOTE | 2023-06-15 11:44 | P.PN ---
Subjective Date of Service: 06/15/23 Chief Complaint: GI bleed, Gastric perforation Subjective pt admitted with Respiratory failure upper GI bleeding/s/p perforation required surgery Toaday No overnight events Labs reviewed Cont TPN Cont lasix Physical exam General: open eyes, HEENT: Atraumatic, Normocephalic Neck: Supple, no elevated JVD Respiratory: CTAB Cardiovascular: No rubs, No murmurs Gastrointestinal: sot, multiple drainage tubes, wound dressed Ext :no edema A/P # Acute kidney injury resolved Renal dose meds avoid NSAID #. Hypokalemia, hypomagnesemia, hypophosphatemia. Replete prn. #.Hyponatremia resolved Cont TPN at current rate and sodium content #. Gastric pouch perforation, status post surgery. Surgery following #Acuet respiratory failure extubated O2 prn Physical Examination - Vital Signs Temperature: 97.4 F Blood Pressure: 153/73 Pulse: 65 Respirations: 24 Pulse Ox (%): 100
[2023-06-15] MEDS: OLANZAPINE 5 MG PO SCH (13:07)
[2023-06-15] MEDS: DEXTROSE IV SCH ×5 (16:31)
[2023-06-15] MEDS: SODIUM ACETATE IV SCH ×5 (16:31)
[2023-06-15] MEDS: AMINO ACIDS IV SCH ×5 (16:31)
[2023-06-15] MEDS: [UNRECOGNIZED DRUG - OTHER] IV SCH ×5 (16:31)
[2023-06-15] MEDS: MAGNESIUM IV SCH ×5 (16:31)
[2023-06-16] MEDS: LORazepam 2 MG/ML VIAL IV PRN ×2 (04:00→20:00)
[2023-06-16] MEDS: HALOPERIDOL LACT 5 MG/ML INJ IV PRN (04:00)
[2023-06-16 04:38] LABS: Absolute Lymphocytes (CBC) 1.7 K/uL (0.7-4.9); Hematocrit 28.1 % (36.0-45.0); MCV 92.8 fL (80-100); MPV 9.5 fL (7.6-11.3); Platelets 250 thou/uL (152-406); RBC Red Blood Cell Count 3.03 M/uL (3.86-4.86)
[2023-06-16 04:54] LABS: Magnesium 1.9 mg/dL (1.6-2.4)
[2023-06-16] MEDS: FENTANYL CITR 100 MCG/2 ML IV PRN ×3 (06:12→20:00)
[2023-06-16] MEDS ORDERED: LEVETIRACETAM 500 MG/5 ML VIAL IV ONE ×2 (08:01→20:01)
[2023-06-16] MEDS ORDERED: NA CHLORIDE 0.9% 100 ML ONE ×3 (08:01→20:18)
[2023-06-16] MEDS: levETIRAcetam 500 MG in NA CHLORIDE 0.9% 100 ML IV SCH ×2 (08:12→20:00)
[2023-06-16] MEDS: DEXMEDETOMIDINE HCL 1,000 MCG in NA CHLORIDE 0.9% 490 ML IV SCH (08:12)
[2023-06-16] MEDS: PANTOPRAZOLE 40 MG INJ IVP SCH ×2 (08:12→20:00)
[2023-06-16] MEDS: MUPIROCIN 2% OINT 22GM TUBE TOP SCH (08:13)
[2023-06-16] MEDS: OLANZAPINE 5 MG PO SCH (08:13)
--- NOTE | 2023-06-16 10:12 | P.PN ---
Subjective Date of Service: 06/16/23 Chief Complaint: S/p tracheostomy GI bleeding Patient has improved significantly denies she does have a trach no further evidence of GI bleeding patient is on high-dose PPI in addition to TPN alert responsive requiring Precedex was started on sublingual olanzapine Review of Systems is unable to be obtained Physical Examination - Vital Signs Temperature: 97.4 F Blood Pressure: 128/73 Pulse: 63 Respirations: 17 Pulse Ox (%): 99 - Physical Exam General: Alert, Cooperative Respiratory: Clear to auscultation bilaterally Gastrointestinal: Normal bowel sounds, Soft and benign Musculoskeletal: No clubbing Assessment And Plan - Current Problems (Diagnosis) (1) Respiratory failure Current Visit: Yes Status: Acute Plan: Respiratory failure patient has improved significantly cussed with Dr. Campoverde we will plan to change her over to fenestrated trach on 18 June history of Pseudomonas isolated from the sputum will recheck sputum again labs reviewed Qualifiers: Chronicity: acute (2) Upper GI bleed Current Visit: Yes Status: Acute Plan: Patient's condition has stabilized no further evidence of GI bleed patient's he moglobin has been stable will reduce the dose of pantoprazole to 40 mg IV every 12 for now
[2023-06-16] MEDS ORDERED: FENTANYL CITR 100 MCG/2 ML ONE (12:59)
--- NOTE | 2023-06-16 16:30 | P.PN ---
Subjective Date of Service: 06/16/23 Chief Complaint: S/p tracheostomy GI bleeding Subjective pt admitted with Respiratory failure upper GI bleeding/s/p perforation required surgery Toaday No overnight events Labs reviewed Cont TPN Cont lasix Physical exam General: open eyes, alert HEENT: Atraumatic, Normocephalic Neck: Supple, no elevated JVD , tracheostomy Respiratory: CTAB Cardiovascular: No rubs, No murmurs Gastrointestinal: sot, multiple drainage tubes, wound dressed Ext :no edema A/P # Acute kidney injury resolved Renal dose meds avoid NSAID #. Hypokalemia, hypomagnesemia, hypophosphatemia. Replete prn. #.Hyponatremia resolved Cont TPN at current rate and sodium content #. Gastric pouch perforation, status post surgery. Surgery following #Acuet respiratory failure extubated O2 prn Physical Examination - Vital Signs Temperature: 96.8 F Blood Pressure: 127/83 Pulse: 89 Respirations: 26 Pulse Ox (%): 100
[2023-06-16] MEDS: [UNRECOGNIZED DRUG - OTHER] IV SCH ×5 (16:48)
[2023-06-16] MEDS: SODIUM ACETATE IV SCH ×5 (16:48)
[2023-06-16] MEDS: AMINO ACIDS IV SCH ×5 (16:48)
[2023-06-16] MEDS: MAGNESIUM IV SCH ×5 (16:48)
[2023-06-16] MEDS: DEXTROSE IV SCH ×5 (16:48)
[2023-06-17] MEDS: FENTANYL CITR 100 MCG/2 ML IV PRN ×4 (00:30→18:00)
[2023-06-17] MEDS: LORazepam 2 MG/ML VIAL IV PRN ×8 (00:30→23:59)
[2023-06-17] MEDS: HALOPERIDOL LACT 5 MG/ML INJ IV PRN (02:40)
[2023-06-17] MEDS ORDERED: HALOPERIDOL LACT 5 MG/ML INJ ONE (02:46)
[2023-06-17] MEDS ORDERED: FENTANYL CITR 100 MCG/2 ML ONE ×3 (02:57→18:15)
[2023-06-17] MEDS ORDERED: LORazepam 2 MG/ML VIAL ONE ×6 (02:58→18:46)
[2023-06-17] MEDS ORDERED: DIPHENHYDRAMINE 50 MG/ML VIAL ONE ×2 (04:45→10:18)
[2023-06-17] MEDS: DIPHENHYDRAMINE 50 MG/ML VIAL IV PRN ×2 (04:50→10:20)
[2023-06-17] MEDS ORDERED: LEVETIRACETAM 500 MG/5 ML VIAL IV ONE ×2 (07:31→20:27)
[2023-06-17] MEDS ORDERED: PANTOPRAZOLE 40 MG INJ ONE (07:31)
[2023-06-17] MEDS ORDERED: NA CHLORIDE 0.9% 100 ML ONE ×2 (07:34→20:27)
[2023-06-17] MEDS: levETIRAcetam 500 MG in NA CHLORIDE 0.9% 100 ML IV SCH ×2 (08:09→20:31)
[2023-06-17] MEDS: PANTOPRAZOLE 40 MG INJ IVP SCH ×2 (08:10→20:31)
[2023-06-17] MEDS: OLANZAPINE 5 MG PO SCH (08:10)
[2023-06-17] MEDS ORDERED: ZIPRASIDONE MESYLA 20 MG/VIAL IM ONE ×2 (08:12→17:54)
[2023-06-17] MEDS: ZIPRASIDONE MESYLA 20 MG/VIAL IM PRN ×2 (08:13→18:04)
[2023-06-17] MEDS: MUPIROCIN 2% OINT 22GM TUBE TOP SCH (08:14)
--- NOTE | 2023-06-17 09:05 | P.PN ---
Subjective Date of Service: 06/17/23 Chief Complaint: S/p tracheostomy Patient is doing much better today positive cooperative however she became a little anxious later on this morning event high Review of Systems is unable to be obtained Physical Examination - Vital Signs Temperature: 97.6 F Blood Pressure: 155/89 Pulse: 119 Respirations: 24 Pulse Ox (%): 100 - Physical Exam General: Alert, Cooperative Respiratory: Clear to auscultation bilaterally Cardiovascular: No edema, Regular rate/rhythm, Normal S1 S2 Assessment And Plan - Current Problems (Diagnosis) (1) Respiratory failure Current Visit: Yes Status: Acute Plan: Patient is doing much better but responsive cooperative onset episode of anxiety Dr. Campoverde will plan to change her to a fenestrated trach tomorrow's lab work all reviewed his blood pressure is mildly elevated as of Lasix patient is still n.p.o. on IV TPN be transferred to the floor Qualifiers: Chronicity: acute (2) Delirium Current Visit: Yes Status: Acute Plan: Resume Precidex
[2023-06-17] MEDS ORDERED: FUROSEMIDE 20 MG/ 2ML VIAL IV ONE (09:30)
[2023-06-17] MEDS ORDERED: LABETALOL 20 MG/4ML SYRINGE IV ONE (10:18)
[2023-06-17] MEDS ORDERED: DEXMEDETOMIDINE HCL 200 MCG in NA CHLORIDE 0.9% 98 ML IV SCH (10:50)
[2023-06-17] MEDS: DEXMEDETOMIDINE HCL 1,000 MCG in NA CHLORIDE 0.9% 490 ML IV SCH (11:00)
--- NOTE | 2023-06-17 11:35 | PN ---
Subjective: Patient is lying in bed. No new acute event. Patient is slightly confused and currentl y on Precedex, not able to transfer to the floor. Objective: Vital Signs: Temperature 97, pulse 120, respiration 24, blood pressure 155/89. Lungs: Basilar crackles. Heart: S1, S2. Regular. Abdomen: Soft. Bowel sounds present. Extremities: No edema. Laboratory Data: Shows WBC 5, hemoglobin 9.5, platelets are 250. Assessment And Plan: Respiratory failure, improving, status post extubation on 05/21. Catheter asso ciated urinary tract infection. Patient is currently on TPN. No antibiotics. Continue supportive c are and monitor for signs of infection with WBC and fever trends. No other recommendation at this ti nh. NF/MODL Voice ID: [id number] Report ID: [id number]
[2023-06-17] MEDS: DEXTROSE 20% IV SCH ×7 (16:12)
[2023-06-17] MEDS: AMINO ACIDS IV SCH ×7 (16:12)
[2023-06-17] MEDS: SODIUM ACETATE IV SCH ×7 (16:12)
[2023-06-17] MEDS: [UNRECOGNIZED DRUG - OTHER] IV SCH ×7 (16:12)
[2023-06-17] MEDS: LIPIDS 20% IV SCH ×7 (16:12)
[2023-06-17] MEDS ORDERED: WATER FOR INJ,STERILE 10 ML ONE (17:54)
[2023-06-18] MEDS: DEXMEDETOMIDINE HCL 1,000 MCG in NA CHLORIDE 0.9% 490 ML IV SCH ×3 (01:10→20:20)
[2023-06-18] MEDS ORDERED: DIPHENHYDRAMINE 50 MG/ML VIAL ONE (01:14)
[2023-06-18] MEDS: DIPHENHYDRAMINE 50 MG/ML VIAL IV PRN (01:15)
[2023-06-18 04:30] LABS: Hematocrit 26.7 % (36.0-45.0); MCV 91.9 fL (80-100); MPV 8.7 fL (7.6-11.3); Platelets 276 thou/uL (152-406)
[2023-06-18 04:52] LABS: Albumin 2.3 g/dL (3.4-5.0); Bilirubin Total 0.5 mg/dL (0.2-1.0); Magnesium 1.9 mg/dL (1.6-2.4); Phosphorus 5.1 mg/dL (2.5-4.9)
[2023-06-18] MEDS ORDERED: LEVETIRACETAM 500 MG/5 ML VIAL IV ONE ×2 (08:00→20:47)
[2023-06-18] MEDS ORDERED: NA CHLORIDE 0.9% 100 ML ONE ×2 (08:00→20:48)
[2023-06-18] MEDS: PANTOPRAZOLE 40 MG INJ IVP SCH ×2 (08:28→20:50)
[2023-06-18] MEDS: levETIRAcetam 500 MG in NA CHLORIDE 0.9% 100 ML IV SCH ×2 (08:28→20:50)
[2023-06-18] MEDS: OLANZAPINE 5 MG PO SCH (08:28)
[2023-06-18] MEDS: MUPIROCIN 2% OINT 22GM TUBE TOP SCH (08:29)
[2023-06-18] MEDS: FUROSEMIDE 20 MG/ 2ML VIAL IV SCH ×3 (08:59→17:20)
--- NOTE | 2023-06-18 15:26 | P.PN ---
Date of Service: 06/18/23 Chief Complaint: Respiratory failure Subjective: Confused/Hallucinations No acute events overnight. Off antibiotics since 06/12. Physical Examination Temp Pulse Resp BP Pulse Ox 97.4 F 55 20 115/76 100 06/18/23 12:00 06/18/23 14:00 06/18/23 14:00 06/18/23 14:00 06/18/23 14:00 General: Awake. In no apparent distress. Oriented x1, confused/hallucinations HEENT: Atraumatic, Normocephalic. Tracheostomy. Respiratory: Trach. unlabored respirations. Cardiovascular: Regular rate and rhythm. No edema. Gastrointestinal: Abdominal surgical incision sites. Mild tenderness. Non- distended. Integumentary: Abdominal surgical site dressing is clean dry and intact. Laboratory Data - Reviewed Microbiology Data - Reviewed Imagings Data: - CT abdomen pelvis 05/18: ": Bibasilar lung consolidations are present posteriorly which may represent infiltrate or atelectasis. There is no evidence of intra- abdominal or intrapelvic abscess collection. Small moderate left inguinal hernia containing nonobstructed small bowel." - XR Chest 05/23: "Patchy bibasilar opacities, left greater than right (atelectasis and/or infiltrate)." - CT head spine wo contrast 05/23: "No acute intracranial or extra-axial abnormality. No acute cervical spine injury." - XR Chest 05/29: "The lungs are grossly clear. The heart is normal in size. No displaced fractures.Left-sided venous catheter has tip in the SVC. Enteric tube descends into the upper abdomen." - XR KUB 05/29: "Tip of the enteric tube is in the stomach. Skin tory are noted along the midline. Several drainage catheters are seen. Mildly prominent central small bowel loops identified." - CTA Chest 05/30: " Negative for a pulmonary embolism. Right lower lobe atelectasis. Mild bilateral pulmonary opacities may represent mild interstitial pulmonary edema. Esophageal dilatation" - CT abdomen pelvis w contrast 05/30: ": 4 centimeter subcapsular splenic hematoma mildly diminished in size. 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 Foster on 05/05. - Blood cultures 05/05: No growth to date - Repeat blood culture 05/11: No growth 24 hours - Urine culture 05/06: No growth to date - Pus drainage from midline abdominal incision site by Dr. Foster at bedside 05/13 - CT abdomen pelvis 05/18: ": Bibasilar lung consolidations are present posteriorly which may represent infiltrate or atelectasis. There is no evidence of intra- abdominal or intrapelvic abscess collection. Small moderate left inguinal hernia containing nonobstructed small bowel." - Fluconazole started 05/11 due to high risk/concern for superimposed fungal infection, patient also on TPN. Switched to Micafungin on 05/20 - Completed 14 days Vancomycin and Meropenem - Completed 14 days Micafungin Acute Hypoxic Respiratory Failure - pulmonology following - sputum culture 05/11: Pseudomonoas aeruginosa - Treated with Meropenem IV. - Extubated 05/21 - XR Chest 05/29: "The lungs are grossly clear. The heart is normal in size. No displaced fractures.Left-sided venous catheter has tip in the SVC. Enteric tube descends into the upper abdomen." - 05/29: patient became hypoxic, hypotensive and tachycardic and was subsequently intubated - Sputum culture 05/31: Pseudomonoas aeruginosa - Completed 10 days Cefepime 06/02-06/12 - Tracheostomy placed on 06/03 Catheter-Associated Urinary Tract Infection - Urine culture 05/30: Pseudomonoas aeruginosa. resistant to meropenem. - Completed 10 days Cefepime (06/02-06/12) Anti-Infective Agents - Cefepime (06/02-06/12) - Vancomycin (05/06-05/16) (05/19-06/04) - Micafungin (05/20-06/03) - Meropenem (05/06-05/24), (05/30-06/03) Recommendations - Pseudomonas sputum and urine: completed 10 days Cefepime. Off antibiotics. Continue to monitor for new or worsening s/s of infection. Remains afebrile. No leukocytosis. - Abdominal surgical site wound care per surgery team - Monitor WBC and fever trends - Pressure offloading measures:Turn patient q2h, wedge pillow, low air-loss mattress. Apply barrier cream to sacrum/buttocks - Seizure precautions - Trach care Case discussed with Bam Kaye
--- NOTE | 2023-06-18 15:30 | P.PN ---
Subjective Date of Service: 06/18/23 Chief Complaint: S/p tracheostomy Patient is awake, interactive, somehow hyperactive. Currently on Precedex drip. Stable on room air. No seizures. Physical Examination - Vital Signs Temperature: 97.4 F Blood Pressure: 115/76 Pulse: 55 Respirations: 20 Pulse Ox (%): 100 Assessment And Plan - Plan Physical Exam: GEN: Awake, oriented x2, NAD. pleasant, confused HEENT: Sclera anicteric CV: Regular rate and rhythm, trace b/l pedal edema Pulm: diminished at bases bilaterally, clear bilaterally ABD: Soft, nondistended, nontender Neuro: No focal motor deficit. 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 S/P repair 05/05 Acute blood loss anemia secondary to upper GI bleed Hypovolemic shock secondary to GI bleed UTI, MDR Pseudomonas Aeruginosa Acute hypoxic respiratory failure/acute lung injury s/p Tracheostomy 06/04/23 Acetaminophen toxicity, resolved JERI secondary to acute blood loss anemia, hypotension/prerenal state; resolved Hypoglycemia Malnutrition/hypoalbuminemia Anasarca, improved Bipolar disorder/depression/anxiety Seizures/metabolic encephalopathy/Hypoxic encephalopathy 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 (05/05) Dr. Foster discussed with bariatric surgeons - not much options, need to wait many months before would attempt any further intra-abdominal procedures J-tube Feeding dc'd due to leak/ nonfunctioning; suspected pulled out partially while patient was moving around/restless last week Patient pulled out NG tube last week. Cristian is aware and recommend to monitor. Monitor for aspiration, Continue TPN at the current rate. Total 12 units PRBC transfused. Stable hemoglobin. Patient is post Protonix drip. Currently on IV Protonix BID Serial abdominal exams Trial of Lovenox for DVT prophylaxis. UTI, MDR Pseudomonas Aeruginosa s/p Anti-Infective Agents Meropenem (05/06-05/24), (05/30-06/03) Vancomycin (05/06-05/16) (05/19-06/04) Micafungin (05/20-06/03) Cefepime (06/02-06/12) afebrile, leukocytosis resolved. Acute hypoxic respiratory failure/acute lung injury s/p Tracheostomy 06/04/23 Patient extubated to oxygen by nasal cannula 05/21. Had to be re-intubated overnight 05/29 for hypoxic respiratory failure CTA chest (05/30): No PE. RLL atelectasis, Mild bilateral pulmonary opacities, esophageal dilation Initial Sputum culture grew Pseudomonas and completed 2 week course of merrem, however sputum growing pseudomonas again, now resistant to merrem (06/02) ENT recommended cuffed tracheostomy to reduce risk of aspiration. s/p Tracheostomy 06/04/23. Weaned to trach collar and then transition to room air. Patient is currently stable on room air. Acetaminophen toxicity, resolved Patient completed acetylcysteine IV infusion for APAP toxicity. Resolved. JERI secondary to acute blood loss anemia, hypotension/prerenal state; resolved Hypoglycemia Malnutrition/hypoalbuminemia JERI resolved. Nephrology is following. Continue TPN. Monitor and optimize electrolytes. Fingerstick glucose monitoring. Anasarca, improved Intermittent Lasix and albumin as needed. Thrombocytopenia, resolved Stable. Bipolar disorder/depression/anxiety Oral meds held given n.p.o. status. Consult psychiatry input regarding alternate route for meds administration. Seizures/metabolic encephalopathy/Hypoxic encephalopathy Seizures likely metabolic related per Dr. Cameron. On IV Keppra per Dr. Cameron recommendation. Started 05/24/23 Unable to confirm via EEG, per Dr. Cameron we can consider treatment for 1 month, then discontinue keppra (05/24/23-06/23/23) No further seizures. VTE: Lovenox. Code: Full Dispo: Social service is exploring disposition to SNF. need to wean off precedex and finish keppra
[2023-06-18] MEDS ORDERED: ENOXAPARIN 40 MG/0.4 ML SQ ONE (16:44)
[2023-06-18] MEDS ORDERED: MAGNESIUM IV SCH ×4 (17:00)
[2023-06-18] MEDS ORDERED: AMINO ACIDS IV SCH ×4 (17:00)
[2023-06-18] MEDS ORDERED: [UNRECOGNIZED DRUG - OTHER] IV SCH ×4 (17:00)
[2023-06-18] MEDS ORDERED: DEXTROSE IV SCH ×4 (17:00)
[2023-06-18] MEDS ORDERED: SODIUM ACETATE IV SCH ×4 (17:00)
[2023-06-18] MEDS: ENOXAPARIN 40 MG/0.4 ML SQ SCH (17:08)
[2023-06-19] MEDS: FUROSEMIDE 20 MG/ 2ML VIAL IV SCH (01:10)
[2023-06-19] MEDS ORDERED: MUPIROCIN 2% OINT 22GM TUBE TOP ONE (08:28)
[2023-06-19] MEDS: MUPIROCIN 2% OINT 22GM TUBE TOP SCH (08:47)
[2023-06-19] MEDS: DEXMEDETOMIDINE HCL 1,000 MCG in NA CHLORIDE 0.9% 490 ML IV SCH ×2 (08:47→23:20)
[2023-06-19] MEDS: PANTOPRAZOLE 40 MG INJ IVP SCH ×2 (08:47→20:43)
[2023-06-19] MEDS: OLANZAPINE 5 MG PO SCH (08:47)
[2023-06-19] MEDS ORDERED: LEVETIRACETAM 500 MG/5 ML VIAL IV ONE ×2 (09:41→19:45)
[2023-06-19] MEDS ORDERED: NA CHLORIDE 0.9% 100 ML ONE ×3 (09:41→21:17)
[2023-06-19] MEDS: levETIRAcetam 500 MG in NA CHLORIDE 0.9% 100 ML IV SCH ×2 (09:46→20:42)
--- NOTE | 2023-06-19 09:59 | PN ---
Chief Complaint: Gastric perforation, GI bleeding, status post surgery for perforated viscus. Review of Systems: The patient cannot provide review of systems. She has trach. She denies complaints. Physical Examination: Lungs: Equal chest expansion. No wheezing. Heart: S1, S2. No pericardial friction rub. Abdomen: Soft, benign, nontender. Extremities: Slight peripheral edema. Impression And Plan: 1. Acute on chronic kidney injury due to poor renal perfusion. The patient had nonoliguric acute tubular necrosis secondary to sepsis and renal hypoperfusion. Acute kidney failure, resolved. Serum creatinine level improved to 0.4. Continue parenteral nutrition. 2. Hypokalemia, hypomagnesemia, hypophosphatemia. Continue TPN. 3. Hypernatremia, improved. The patient received IV hydration and TPN prescription was adjusted. 4. Gastric pouch perforation, status post surgery. Recommendation from General Surgery Service. 5. Acute on chronic respiratory failure, status post trach. Continue Lasix for volume control. Monitor renal function and electrolytes. EB/MODL Voice ID: [id number] Report ID: [id number] ELENI
--- NOTE | 2023-06-19 12:15 | P.PN ---
Subjective Date of Service: 06/19/23 Chief Complaint: S/p tracheostomy with delirium Patient continues to have persistent delirium with psychosis requiring Precedex Review of Systems is unable to be obtained Physical Examination - Vital Signs Temperature: 96.2 F Blood Pressure: 113/71 Pulse: 63 Respirations: 18 Pulse Ox (%): 97 - Physical Exam General: Unresponsive Respiratory: Clear to auscultation bilaterally Cardiovascular: No edema, Regular rate/rhythm, Normal S1 S2 Assessment And Plan - Current Problems (Diagnosis) (1) Respiratory failure Current Visit: Yes Status: Acute Plan: Patient is doing better oxygenation has improved we will change to a fenestrated trach Qualifiers: Chronicity: acute (2) Delirium Current Visit: Yes Status: Acute Plan: unfortunately experiencing delirium and psychosis due to's prolonged stay in the ICU on sublingual olanzapine and is requiring Precedex to be stabilized hemoglobin is stable blood pressure vital signs all stable currently on prolonged TPN
--- NOTE | 2023-06-19 12:26 | P.PN ---
Subjective Date of Service: 06/19/23 Chief Complaint: S/p tracheostomy with delirium Patient is awake, interacting appropriately On low-dose Precedex drip. Stable on room air. No seizures. Physical Examination - Vital Signs Temperature: 96.2 F Blood Pressure: 113/71 Pulse: 63 Respirations: 18 Pulse Ox (%): 97 Assessment And Plan - Plan Physical Exam: GEN: Awake, oriented x2, NAD. pleasant. Neck: Tracheostomy. CV: Regular rate and rhythm, trace b/l pedal edema Pulm: diminished at bases bilaterally, clear bilaterally ABD: Soft, nondistended, nontender Neuro: No focal motor deficit. 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 S/P repair 05/05 Acute blood loss anemia secondary to upper GI bleed Hypovolemic shock secondary to GI bleed UTI, MDR Pseudomonas Aeruginosa Acute hypoxic respiratory failure/acute lung injury s/p Tracheostomy 06/04/23 Acetaminophen toxicity, resolved JERI secondary to acute blood loss anemia, hypotension/prerenal state; resolved Hypoglycemia Malnutrition/hypoalbuminemia Anasarca, improved Bipolar disorder/depression/anxiety Seizures/metabolic encephalopathy/Hypoxic encephalopathy 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 (05/05) Dr. Foster discussed with bariatric surgeons - not much options, need to wait many months before would attempt any further intra-abdominal procedures J-tube Feeding dc'd due to leak/ nonfunctioning; suspected pulled out partially while patient was moving around/restless last week Patient pulled out NG tube last week. Cristian is aware and recommend to monitor. Monitor for aspiration, Continue TPN at the current rate. Total 12 units PRBC transfused. Stable hemoglobin. Patient is post Protonix drip. Currently on IV Protonix BID Serial abdominal exams Lovenox for DVT prophylaxis. UTI, MDR Pseudomonas Aeruginosa s/p Anti-Infective Agents Meropenem (05/06-05/24), (05/30-06/03) Vancomycin (05/06-05/16) (05/19-06/04) Micafungin (05/20-06/03) Cefepime (06/02-06/12) afebrile, leukocytosis resolved. Acute hypoxic respiratory failure/acute lung injury s/p Tracheostomy 06/04/23 Patient extubated to oxygen by nasal cannula 05/21. Had to be re-intubated overnight 05/29 for hypoxic respiratory failure CTA chest (05/30): No PE. RLL atelectasis, Mild bilateral pulmonary opacities, esophageal dilation Initial Sputum culture grew Pseudomonas and completed 2 week course of merrem, however sputum growing pseudomonas again, now resistant to merrem (06/02) ENT recommended cuffed tracheostomy to reduce risk of aspiration. s/p Tracheostomy 06/04/23. Weaned to trach collar and then transition to room air. Patient is currently stable on room air. Acetaminophen toxicity, resolved Patient completed acetylcysteine IV infusion for APAP toxicity. Resolved. JERI secondary to acute blood loss anemia, hypotension/prerenal state; resolved Hypoglycemia Malnutrition/hypoalbuminemia JERI resolved. Nephrology is following. Continue TPN. Monitor and optimize electrolytes. Fingerstick glucose monitoring. Anasarca, improved Intermittent Lasix and albumin as needed. Thrombocytopenia, resolved Stable. Bipolar disorder/depression/anxiety Oral meds held given n.p.o. status. Patient started on sublingual Zyprexa. Wean off Precedex. Seizures/metabolic encephalopathy/Hypoxic encephalopathy Seizures likely metabolic related per Dr. Cameron. On IV Keppra per Dr. Cameron recommendation. Started 05/24/23 Unable to confirm via EEG, per Dr. Cameron we can consider treatment for 1 month, then discontinue keppra (05/24/23-06/23/23) No further seizures. VTE: Lovenox. Code: Full Dispo: Social service is exploring disposition to SNF. need to wean off precedex and finish keppra
--- NOTE | 2023-06-19 15:20 | P.PN ---
Subjective Date of Service: 06/19/23 Chief Complaint: S/p tracheostomy with delirium Subjective: No new changes Physical Examination - Vital Signs Temperature: 96.2 F Blood Pressure: 104/83 Pulse: 57 Respirations: 18 Pulse Ox (%): 97 - Physical Exam General: Other (chronically ill-appearing) HEENT: Atraumatic, Normocephalic Neck: Supple Respiratory: Other (symmetric chest expansion) Cardiovascular: No rubs, No murmurs Gastrointestinal: Soft and benign Musculoskeletal: No clubbing Integumentary: No warmth Neurological: Normal tone Urinary: Other (no bladder distention) External genitalia: Deferred Rectal: Deferred Assessment And Plan - Plan 1. Acute kidney injury secondary to poor perfusion ATN, toxic ATN. SCr improved to 0.4-0.6. On TPN. Monitor renal panel. 2. Hypokalemia, hypomagnesemia, hypophosphatemia. Replete lytes prn. 3. Hypernatremia. Improved. IV hydration & TPN as above. 4. Gastric pouch perforation, status post surgery. Per Gen Surg service. 5. Acute/chronic respiratory failure. +Trach. Per ICU team. 6. Anemia. pRBC transf prn for Hgb < 7.0. No indication for DAMON.
[2023-06-19] MEDS ORDERED: LIPIDS 20% IV SCH ×11 (17:00→18:00)
[2023-06-19] MEDS ORDERED: [UNRECOGNIZED DRUG - OTHER] IV SCH ×11 (17:00→18:00)
[2023-06-19] MEDS ORDERED: SODIUM ACETATE IV SCH ×11 (17:00→18:00)
[2023-06-19] MEDS ORDERED: AMINO ACIDS IV SCH ×16 (17:00→18:00)
[2023-06-19] MEDS ORDERED: DEXTROSE 20% IV SCH ×11 (17:00→18:00)
[2023-06-19] MEDS: ENOXAPARIN 40 MG/0.4 ML SQ SCH (17:32)
[2023-06-19] MEDS ORDERED: [UNRECOGNIZED DRUG - OTHER] IV SCH ×5 (18:00)
[2023-06-19] MEDS ORDERED: DEXTROSE IV SCH ×5 (18:00)
[2023-06-19] MEDS ORDERED: LIPIDS IV SCH ×5 (18:00)
[2023-06-19] MEDS ORDERED: MAGNESIUM IV SCH ×5 (18:00)
[2023-06-19] MEDS ORDERED: Ringers Lactate 1,000 ML IV SCH (19:00)
[2023-06-19] MEDS: LORazepam 2 MG/ML VIAL IV PRN (21:00)
[2023-06-20] MEDS: LORazepam 2 MG/ML VIAL IV PRN ×2 (01:40→13:29)
[2023-06-20] MEDS: FENTANYL CITR 100 MCG/2 ML IV PRN ×2 (01:40→23:46)
[2023-06-20 04:35] LABS: Absolute Lymphocytes (CBC) 1.7 K/uL (0.7-4.9); MCV 91.3 fL (80-100); MPV 8.9 fL (7.6-11.3); Platelets 293 thou/uL (152-406); RBC Red Blood Cell Count 3.06 M/uL (3.86-4.86)
[2023-06-20 04:42] LABS: Potassium 4.1 mEq/L (3.5-5.1)
[2023-06-20] MEDS ORDERED: LEVETIRACETAM 500 MG/5 ML VIAL IV ONE ×2 (07:58→21:48)
[2023-06-20] MEDS ORDERED: NA CHLORIDE 0.9% 100 ML ONE ×2 (07:58→21:48)
[2023-06-20] MEDS: MUPIROCIN 2% OINT 22GM TUBE TOP SCH (08:13)
[2023-06-20] MEDS: OLANZAPINE 5 MG PO SCH (08:13)
[2023-06-20] MEDS: PANTOPRAZOLE 40 MG INJ IVP SCH ×2 (08:13→21:52)
[2023-06-20] MEDS: levETIRAcetam 500 MG in NA CHLORIDE 0.9% 100 ML IV SCH ×2 (08:13→21:51)
--- NOTE | 2023-06-20 08:36 | P.PN ---
Date of Service: 06/20/23 Chief Complaint: Respiratory failure Subjective: Patient sitting in chair. In no apparent distress. Denies any new or worsening complaints at this time. + mild abdominal pain + generalized weakness No nausea, vomiting or diarrhea. Denies shortness of breath, chest pain, cough. Denies any urinary symptoms. No acute events reported overnight. Physical Examination Temp Pulse Resp BP Pulse Ox 96.9 F 69 16 123/54 L 99 06/20/23 04:00 06/20/23 06:00 06/20/23 06:00 06/20/23 06:00 06/20/23 06:00 General: Awake. In no apparent distress. Oriented x1-2, confused. HEENT: Atraumatic, Normocephalic. Tracheostomy. Respiratory: Trach. unlabored respirations. Cardiovascular: Regular rate and rhythm. No edema. Gastrointestinal: Abdominal surgical incision sites. Mild tenderness. Non- distended. Integumentary: Abdominal surgical site dressing is clean dry and intact. ARMIN drains with minimal drainage. MSK: moves all extremities. Generalized weakness. : [place] Laboratory Data - Reviewed Microbiology Data - Reviewed Imagings Data: - CT abdomen pelvis 05/18: ": Bibasilar lung consolidations are present posteriorly which may represent infiltrate or atelectasis. There is no evidence of intra- abdominal or intrapelvic abscess collection. Small moderate left inguinal hernia containing nonobstructed small bowel." - XR Chest 05/23: "Patchy bibasilar opacities, left greater than right (atelectasis and/or infiltrate)." - CT head spine wo contrast 05/23: "No acute intracranial or extra-axial abnormality. No acute cervical spine injury." - XR Chest 05/29: "The lungs are grossly clear. The heart is normal in size. No displaced fractures.Left-sided venous catheter has tip in the SVC. Enteric tube descends into the upper abdomen." - XR KUB 05/29: "Tip of the enteric tube is in the stomach. Skin tory are noted along the midline. Several drainage catheters are seen. Mildly prominent central small bowel loops identified." - CTA Chest 05/30: " Negative for a pulmonary embolism. Right lower lobe atelectasis. Mild bilateral pulmonary opacities may represent mild interstitial pulmonary edema. Esophageal dilatation" - CT abdomen pelvis w contrast 05/30: ": 4 centimeter subcapsular splenic hematoma mildly diminished in size. 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 Foster on 05/05. - Blood cultures 05/05: No growth to date - Repeat blood culture 05/11: No growth 24 hours - Urine culture 05/06: No growth to date - Pus drainage from midline abdominal incision site by Dr. Foster at bedside 05/13 - CT abdomen pelvis 05/18: ": Bibasilar lung consolidations are present posteriorly which may represent infiltrate or atelectasis. There is no evidence of intra- abdominal or intrapelvic abscess collection. Small moderate left inguinal hernia containing nonobstructed small bowel." - Fluconazole started 05/11 due to high risk/concern for superimposed fungal infection, patient also on TPN. Switched to Micafungin on 05/20 - Completed 14 days Vancomycin and Meropenem - Completed 14 days Micafungin Acute Hypoxic Respiratory Failure - pulmonology following - sputum culture 05/11: Pseudomonoas aeruginosa - Treated with Meropenem IV. - Extubated 05/21 - XR Chest 05/29: "The lungs are grossly clear. The heart is normal in size. No displaced fractures.Left-sided venous catheter has tip in the SVC. Enteric tube descends into the upper abdomen." - 05/29: patient became hypoxic, hypotensive and tachycardic and was subsequently intubated - Sputum culture 05/31: Pseudomonoas aeruginosa - Completed 10 days Cefepime 06/02-06/12 - Tracheostomy placed on 06/03 Catheter-Associated Urinary Tract Infection - Urine culture 05/30: Pseudomonoas aeruginosa. resistant to meropenem. - Completed 10 days Cefepime (06/02-06/12) Anti-Infective Agents - Cefepime (06/02-06/12) - Vancomycin (05/06-05/16) (05/19-06/04) - Micafungin (05/20-06/03) - Meropenem (05/06-05/24), (05/30-06/03) Recommendations - Pseudomonas sputum and urine: completed 10 days Cefepime. Off antibiotics. Continue to monitor for new or worsening s/s of infection. Remains afebrile. No leukocytosis. Improving. - Abdominal surgical site wound care per surgery team - Monitor WBC and fever trends - Pressure offloading measures:Turn patient q2h, wedge pillow, low air-loss mattress. Apply barrier cream to sacrum/buttocks - Seizure precautions - Trach care - Wean off precedex as tolerated. Case discussed with Bam Kaye
--- NOTE | 2023-06-20 10:43 | P.PN ---
Subjective Date of Service: 06/20/23 Chief Complaint: S/p tracheostomy with delirium Patient is awake, interactive though slightly confused. On low-dose Precedex drip. Stable on room air. Patient was up in a chair today according to nursing staff. No seizures. Physical Examination - Vital Signs Temperature: 96.2 F Blood Pressure: 104/83 Pulse: 57 Respirations: 18 Pulse Ox (%): 97 Assessment And Plan - Plan Physical Exam: GEN: Awake, oriented x2, NAD. pleasant. Neck: Tracheostomy. CV: Regular rate and rhythm, trace b/l pedal edema Pulm: diminished at bases bilaterally, clear bilaterally ABD: Soft, nondistended, nontender Neuro: No focal motor deficit. 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 (05/05) Dr. Foster discussed with bariatric surgeons - not much options, need to wait many months before would attempt any further intra-abdominal procedures J-tube Feeding dc'd due to leak/ nonfunctioning; suspected pulled out partially while patient was moving around/restless last week Patient pulled out NG tube. Cristian is aware and recommend to monitor. Monitor for aspiration, Continue TPN at the current rate. Total 12 units PRBC transfused. Stable hemoglobin. Patient is post Protonix drip. Currently on IV Protonix BID Serial abdominal exams Lovenox for DVT prophylaxis. UTI, MDR Pseudomonas Aeruginosa s/p Anti-Infective Agents Meropenem (05/06-05/24), (05/30-06/03) Vancomycin (05/06-05/16) (05/19-06/04) Micafungin (05/20-06/03) Cefepime (06/02-06/12) afebrile, leukocytosis resolved. Acute hypoxic respiratory failure/acute lung injury s/p Tracheostomy 06/04/23 Patient extubated to oxygen by nasal cannula 05/21. Had to be re-intubated overnight 05/29 for hypoxic respiratory failure CTA chest (05/30): No PE. RLL atelectasis, Mild bilateral pulmonary opacities, esophageal dilation Initial Sputum culture grew Pseudomonas and completed 2 week course of merrem, however sputum growing pseudomonas again, now resistant to merrem (06/02) ENT recommended cuffed tracheostomy to reduce risk of aspiration. s/p Tracheostomy 06/04/23. Weaned to trach collar and then transition to room air. Patient is currently stable on room air. Acetaminophen toxicity, resolved Patient completed acetylcysteine IV infusion for APAP toxicity. Resolved. JERI secondary to acute blood loss anemia, hypotension/prerenal state; resolved Hypoglycemia Malnutrition/hypoalbuminemia JERI resolved. Nephrology is following. Continue TPN. Monitor and optimize electrolytes. Fingerstick glucose monitoring. Anasarca, improved Intermittent Lasix and albumin as needed. Thrombocytopenia, resolved Stable. Bipolar disorder/depression/anxiety Oral meds held given n.p.o. status. Patient started on sublingual Zyprexa. Wean off Precedex. Seizures/metabolic encephalopathy/Hypoxic encephalopathy Seizures likely metabolic related per Dr. Cameron. On IV Keppra per Dr. Cameron recommendation. Started 05/24/23 Unable to confirm via EEG, per Dr. Cameron we can consider treatment for 1 month, then discontinue keppra (05/24/23-06/23/23) No further seizures. Considering sublingual Ativan as needed for agitation we can wean off the Precedex drip. VTE: Lovenox. Code: Full Dispo: Social service is exploring disposition to SNF. need to wean off precedex and finish keppra
[2023-06-20] MEDS: DEXMEDETOMIDINE HCL 1,000 MCG in NA CHLORIDE 0.9% 490 ML IV SCH (12:54)
[2023-06-20] MEDS ORDERED: DIPHENHYDRAMINE 50 MG/ML VIAL ONE (13:27)
[2023-06-20] MEDS ORDERED: LORazepam 2 MG/ML VIAL ONE (13:27)
[2023-06-20] MEDS ORDERED: ZIPRASIDONE MESYLA 20 MG/VIAL IM ONE (13:27)
[2023-06-20] MEDS: ZIPRASIDONE MESYLA 20 MG/VIAL IM PRN (13:28)
[2023-06-20] MEDS ORDERED: WATER FOR INJ,STERILE 10 ML ONE (13:28)
[2023-06-20] MEDS: DIPHENHYDRAMINE 50 MG/ML VIAL IV PRN (13:29)
--- NOTE | 2023-06-20 14:25 | P.PN ---
Date of Service: 06/13/23 Progress Note Patient seen and examined. She is due for a tracheostomy tube change today. She denies any neck pain, swelling, or bleeding. After placing supine with a shoulder roll, the soft collar sutures and #8 cuffed trach tube were removed. Patient had a well-formed stoma. I was able to easily slide a #8 cuffed tracheostomy tube into the trachea and the cuff was inflated to 5 ml of air. She tolerated well. Impression: 1. Respiratory failure s/p Open tracheostomy 06/03/23 and trach change today. Plan: 1. Respiratory therapy and nursing for trach care.
--- NOTE | 2023-06-20 14:28 | P.PN ---
Date of Service: 06/19/23 Progress Note Patient seen and examined. Patient has requested a cuffless trach tube so that she can start speaking. Per Dr. Anthony she has not had any aspiration events. She denies any neck pain, swelling, or bleeding. After placing supine with a shoulder roll, the soft collar sutures and #8 cuffed trach tube were removed. Patient had a well-formed stoma. I was able to easily slide a #8 cuffless tracheostomy tube into the trachea and trach collar was secured. She tolerated well. Impression: 1. Respiratory failure s/p Open tracheostomy 06/03/23 and trach change to cuffless tube today. Plan: 1. Respiratory therapy and nursing for trach care. 2. Will follow as needed.
[2023-06-20] MEDS ORDERED: ENOXAPARIN 40 MG/0.4 ML SQ ONE (17:24)
[2023-06-20] MEDS: ENOXAPARIN 40 MG/0.4 ML SQ SCH (17:26)
[2023-06-20] MEDS: AMINO ACIDS 5 %/DEXTROSE 20 % 2,000 ML IV SCH (17:26)
[2023-06-20] MEDS ORDERED: MIDAZOLAM 10 MG/5 ML ORAL SYR ONE (21:17)
[2023-06-20] MEDS: MIDAZOLAM 10 MG/5 ML ORAL SYR PO PRN (21:52)
[2023-06-20] MEDS ORDERED: FENTANYL CITR 100 MCG/2 ML ONE (23:43)
[2023-06-21] MEDS: LORazepam 2 MG/ML VIAL IV PRN ×3 (01:45→20:56)
[2023-06-21] MEDS ORDERED: DIPHENHYDRAMINE 50 MG/ML VIAL ONE ×2 (05:08→22:02)
[2023-06-21] MEDS: DIPHENHYDRAMINE 50 MG/ML VIAL IV PRN ×2 (05:10→22:04)
[2023-06-21 06:43] LABS: Absolute Lymphocytes (CBC) 1.4 K/uL (0.7-4.9); Hematocrit 29.1 % (36.0-45.0); Lymphocytes % 28.9 % (15.3-44.8); MCV 91.4 fL (80-100); Platelets 254 thou/uL (152-406); RBC Red Blood Cell Count 3.19 M/uL (3.86-4.86)
[2023-06-21 06:54] LABS: Albumin 2.6 g/dL (3.4-5.0); Bilirubin Total 0.6 mg/dL (0.2-1.0); Magnesium 1.4 mg/dL (1.6-2.4); Phosphorus 4.4 mg/dL (2.5-4.9); Potassium 3.8 mEq/L (3.5-5.1); Protein, Total 7.2 g/dL (6.4-8.2)
[2023-06-21] MEDS ORDERED: Magnesium Sulfate 2gm IVPB 2 G/50 ML BAG IV ONE (08:30)
--- NOTE | 2023-06-21 08:32 | P.PN ---
Date of Service: 06/21/23 Chief Complaint: Respiratory failure Subjective: Patient seen and examined at bedside. Laying in bed, in no apparent distress. Awake, oriented x2. Denies any new or worsening complaints at this time. No acute events reported overnight. Physical Examination Temp Pulse Resp BP Pulse Ox 96.9 F 76 19 110/68 100 06/21/23 04:00 06/21/23 06:00 06/21/23 06:00 06/21/23 06:00 06/21/23 06:00 General: Awake. In no apparent distress. Oriented x2, intermittent confusion. HEENT: Atraumatic, Normocephalic. Tracheostomy. Respiratory: Trach. unlabored respirations. Cardiovascular: Regular rate and rhythm. No edema. Gastrointestinal: Abdominal surgical incision sites. Mild tenderness. Non- distended. Integumentary: Abdominal surgical site dressing is clean dry and intact. ARMIN drains with minimal drainage. MSK: moves all extremities. Generalized weakness. : [facility] Laboratory Data - Reviewed Microbiology Data - Reviewed Imagings Data: - CT abdomen pelvis 05/18: ": Bibasilar lung consolidations are present posteriorly which may represent infiltrate or atelectasis. There is no evidence of intra- abdominal or intrapelvic abscess collection. Small moderate left inguinal hernia containing nonobstructed small bowel." - XR Chest 05/23: "Patchy bibasilar opacities, left greater than right (atelectasis and/or infiltrate)." - CT head spine wo contrast 05/23: "No acute intracranial or extra-axial abnormality. No acute cervical spine injury." - XR Chest 05/29: "The lungs are grossly clear. The heart is normal in size. No displaced fractures.Left-sided venous catheter has tip in the SVC. Enteric tube descends into the upper abdomen." - XR KUB 05/29: "Tip of the enteric tube is in the stomach. Skin tory are noted along the midline. Several drainage catheters are seen. Mildly prominent central small bowel loops identified." - CTA Chest 05/30: " Negative for a pulmonary embolism. Right lower lobe atelectasis. Mild bilateral pulmonary opacities may represent mild interstitial pulmonary edema. Esophageal dilatation" - CT abdomen pelvis w contrast 05/30: ": 4 centimeter subcapsular splenic hematoma mildly diminished in size. No acute abnormality is displayed" Medications List: Reviewed Assessment and plan Problem List Gastric pouch perforation/rupture s/p repair on 05/05 Acute blood loss anemia secondary to gastric pouch perforation Acute Hypoxic Respiratory Failure Acute Kidney Injury Acetaminophen Toxicity Bipolar disorder Depression Anxiety Gastric Pouch Perforation/Rupture/Bleeding - History of laura-en-Y bypass - Underwent emergent exploratory laparotomy with findings of acute abdominal pne umoperitoneum, hemoperitoneum, gastric pouch perforation/rupture/bleeding --> small bowel laura limb repair, repair of gastric pouch rupture with bleeding control, extensive lysys of adhesions, jejunostomy, evacuation of hemoperitoneum performed by Dr. Foster on 05/05. - Blood cultures 05/05: No growth to date - Repeat blood culture 05/11: No growth 24 hours - Urine culture 05/06: No growth to date - Pus drainage from midline abdominal incision site by Dr. Foster at bedside 05/13 - CT abdomen pelvis 05/18: ": Bibasilar lung consolidations are present posteriorly which may represent infiltrate or atelectasis. There is no evidence of intra- abdominal or intrapelvic abscess collection. Small moderate left inguinal hernia containing nonobstructed small bowel." - Fluconazole started 05/11 due to high risk/concern for superimposed fungal infection, patient also on TPN. Switched to Micafungin on 05/20 - Completed 14 days Vancomycin and Meropenem - Completed 14 days Micafungin Acute Hypoxic Respiratory Failure - pulmonology following - sputum culture 05/11: Pseudomonoas aeruginosa - Treated with Meropenem IV. - Extubated 05/21 - XR Chest 05/29: "The lungs are grossly clear. The heart is normal in size. No displaced fractures.Left-sided venous catheter has tip in the SVC. Enteric tube descends into the upper abdomen." - 05/29: patient became hypoxic, hypotensive and tachycardic and was subsequently intubated - Sputum culture 05/31: Pseudomonoas aeruginosa - Completed 10 days Cefepime 06/02-06/12 - Tracheostomy placed on 06/03 Catheter-Associated Urinary Tract Infection - Urine culture 05/30: Pseudomonoas aeruginosa. resistant to meropenem. - Completed 10 days Cefepime (06/02-06/12) Anti-Infective Agents - Cefepime (06/02-06/12) - Vancomycin (05/06-05/16) (05/19-06/04) - Micafungin (05/20-06/03) - Meropenem (05/06-05/24), (05/30-06/03) Recommendations Off antibiotics since 06/12. Continue to monitor for new or worsening s/s of infection. Remains afebrile. No leukocytosis. Improving. - Abdominal surgical site wound care per surgery team - Monitor WBC and fever trends - Pressure offloading measures:Turn patient q2h, wedge pillow, low air-loss mattress. Apply barrier cream to sacrum/buttocks - Seizure precautions - Trach care - Wean off precedex as tolerated. Case discussed with Bam Kaye
[2023-06-21] MEDS: PANTOPRAZOLE 40 MG INJ IVP SCH (08:41)
[2023-06-21] MEDS ORDERED: LEVETIRACETAM 500 MG/5 ML VIAL IV ONE ×2 (08:47→20:54)
[2023-06-21] MEDS ORDERED: NA CHLORIDE 0.9% 100 ML ONE ×2 (08:47→20:54)
[2023-06-21] MEDS: levETIRAcetam 500 MG in NA CHLORIDE 0.9% 100 ML IV SCH ×2 (08:51→20:56)
[2023-06-21] MEDS: MUPIROCIN 2% OINT 22GM TUBE TOP SCH (08:52)
[2023-06-21] MEDS: OLANZAPINE 5 MG PO SCH (08:53)
[2023-06-21] MEDS: DEXMEDETOMIDINE HCL 1,000 MCG in NA CHLORIDE 0.9% 490 ML IV SCH (11:26)
[2023-06-21] MEDS ORDERED: HYDROMORPHONE HCL 0.5 MG/0.5 ML INJ IV ONE (11:30)
--- NOTE | 2023-06-21 13:21 | P.PN ---
Subjective Date of Service: 06/21/23 Chief Complaint: S/p tracheostomy with delirium No major changes from yesterday Precedex drip weaned off. Stable on room air. No seizures. Physical Examination - Vital Signs Temperature: 98.6 F Blood Pressure: 156/81 Pulse: 108 Respirations: 18 Pulse Ox (%): 100 Assessment And Plan - Plan Physical Exam: GEN: Awake, oriented x2, NAD. Neck: Tracheostomy. CV: Regular rate and rhythm, trace b/l pedal edema Pulm: diminished at bases bilaterally, clear bilaterally ABD: Soft, nondistended, nontender Neuro: No focal motor deficit. 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 (05/05) Dr. Foster discussed with bariatric surgeons - not much options, need to wait many months before would attempt any further intra-abdominal procedures Monitor for aspiration, Continue TPN at the current rate. Total 12 units PRBC transfused. Stable hemoglobin. Patient is post Protonix drip. Hemoglobin has been stable. Discontinue IV Protonix. Lovenox for DVT prophylaxis. UTI, MDR Pseudomonas Aeruginosa s/p Anti-Infective Agents Meropenem (05/06-05/24), (05/30-06/03) Vancomycin (05/06-05/16) (05/19-06/04) Micafungin (05/20-06/03) Cefepime (06/02-06/12) afebrile, leukocytosis resolved. Completed antibiotic Acute hypoxic respiratory failure/acute lung injury s/p Tracheostomy 06/04/23 Patient extubated to oxygen by nasal cannula 05/21. Had to be re-intubated overnight 05/29 for hypoxic respiratory failure CTA chest (05/30): No PE. RLL atelectasis, Mild bilateral pulmonary opacities, esophageal dilation Initial Sputum culture grew Pseudomonas and completed 2 week course of merrem, however sputum growing pseudomonas again, now resistant to merrem (06/02) ENT recommended cuffed tracheostomy to reduce risk of aspiration. s/p Tracheostomy 06/04/23. Weaned to trach collar and then transitioned to room air. She has been stable on room air. Acetaminophen toxicity, resolved Patient completed acetylcysteine IV infusion for APAP toxicity. Resolved. JERI secondary to acute blood loss anemia, hypotension/prerenal state; resolved Hypoglycemia Malnutrition/hypoalbuminemia JERI resolved. Nephrology is following. Continue TPN. Monitor and optimize electrolytes. Fingerstick glucose monitoring. Anasarca, improved Intermittent Lasix and albumin as needed. Thrombocytopenia, resolved Stable. Bipolar disorder/depression/anxiety Oral meds held given n.p.o. status. Patient started on sublingual Zyprexa. Wean off Precedex. Seizures/metabolic encephalopathy/Hypoxic encephalopathy Seizures likely metabolic related per Dr. Cameron. On IV Keppra per Dr. Cameron recommendation. Started 05/24/23 Unable to confirm via EEG, per Dr. Cameron we can consider treatment for 1 month, then discontinue keppra (05/24/23-06/23/23) No further seizures. Continue sublingual Versed as needed for agitation. Patient weaned off Precedex drip. VTE: Lovenox. Code: Full Dispo: Social service is exploring disposition to SNF.
[2023-06-21] MEDS: ENOXAPARIN 40 MG/0.4 ML SQ SCH (16:51)
[2023-06-21] MEDS: AA 5%/D20W/ELECTROLYTES-TPN 2,000 ML, Lipids 20% 250 ML with MULTIVITAMINS INJ 10 ML IV SCH ×3 (16:51)
[2023-06-21] MEDS ORDERED: [UNRECOGNIZED DRUG - OTHER] IV SCH ×6 (17:00)
[2023-06-21] MEDS ORDERED: SODIUM ACETATE IV SCH ×6 (17:00)
[2023-06-21] MEDS ORDERED: LIPIDS 20% IV SCH ×6 (17:00)
[2023-06-21] MEDS ORDERED: AMINO ACIDS IV SCH ×6 (17:00)
[2023-06-21] MEDS ORDERED: DEXTROSE 20% IV SCH ×6 (17:00)
[2023-06-22] MEDS ORDERED: LORazepam 2 MG/ML VIAL ONE (00:05)
[2023-06-22] MEDS: LORazepam 2 MG/ML VIAL IV PRN (00:06)
[2023-06-22] MEDS ORDERED: MIDAZOLAM 10 MG/5 ML ORAL SYR ONE ×2 (04:45→20:11)
[2023-06-22] MEDS: MIDAZOLAM 10 MG/5 ML ORAL SYR PO PRN ×2 (04:49→20:12)
[2023-06-22 04:54] LABS: Absolute Lymphocytes (CBC) 1.3 K/uL (0.7-4.9); MCV 91.7 fL (80-100); Platelets 285 thou/uL (152-406); RBC Red Blood Cell Count 3.05 M/uL (3.86-4.86)
[2023-06-22] MEDS: DEXMEDETOMIDINE HCL 1,000 MCG in NA CHLORIDE 0.9% 490 ML IV SCH ×2 (05:05→20:57)
[2023-06-22 05:13] LABS: Albumin 2.4 g/dL (3.4-5.0); Bilirubin Total 0.7 mg/dL (0.2-1.0); Magnesium 1.6 mg/dL (1.6-2.4); Phosphorus 4.9 mg/dL (2.5-4.9); Potassium 3.5 mEq/L (3.5-5.1)
[2023-06-22] MEDS: OLANZAPINE 5 MG PO SCH (09:00)
[2023-06-22] MEDS ORDERED: LEVETIRACETAM 500 MG/5 ML VIAL IV ONE ×2 (09:39→20:54)
[2023-06-22] MEDS ORDERED: NA CHLORIDE 0.9% 100 ML ONE ×2 (09:40→20:55)
[2023-06-22] MEDS: levETIRAcetam 500 MG in NA CHLORIDE 0.9% 100 ML IV SCH ×2 (09:43→20:57)
[2023-06-22] MEDS: MUPIROCIN 2% OINT 22GM TUBE TOP SCH (09:44)
--- NOTE | 2023-06-22 12:25 | P.PN ---
Subjective Date of Service: 06/22/23 Chief Complaint: S/p tracheostomy with delirium Patient is awake and alert. Stable on room air. No seizures. Physical Examination - Vital Signs Temperature: 97.0 F Blood Pressure: 116/79 Pulse: 67 Respirations: 20 Pulse Ox (%): 99 Assessment And Plan - Plan Physical Exam: GEN: Awake, oriented x2, NAD. Neck: Tracheostomy. CV: Regular rate and rhythm, trace b/l pedal edema Pulm: diminished at bases bilaterally, clear bilaterally ABD: Soft, nondistended, nontender Neuro: No focal motor deficit. 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 (05/05) Dr. Foster discussed with bariatric surgeons - not much options, need to wait many months before would attempt any further intra-abdominal procedures Monitor for aspiration, Continue TPN at the current rate. Total 12 units PRBC transfused. Stable hemoglobin. Patient is post Protonix drip. Patient have had at least 6 weeks of PPI Hemoglobin has been stable. Lovenox for DVT prophylaxis. UTI, MDR Pseudomonas Aeruginosa s/p Anti-Infective Agents Meropenem (05/06-05/24), (05/30-06/03) Vancomycin (05/06-05/16) (05/19-06/04) Micafungin (05/20-06/03) Cefepime (06/02-06/12) afebrile, leukocytosis resolved. Completed antibiotic Acute hypoxic respiratory failure/acute lung injury s/p Tracheostomy 06/04/23 Patient extubated to oxygen by nasal cannula 05/21. Had to be re-intubated overnight 05/29 for hypoxic respiratory failure CTA chest (05/30): No PE. RLL atelectasis, Mild bilateral pulmonary opacities, esophageal dilation Initial Sputum culture grew Pseudomonas and completed 2 week course of merrem, however sputum growing pseudomonas again, now resistant to merrem (06/02) ENT recommended cuffed tracheostomy to reduce risk of aspiration. s/p Tracheostomy 06/04/23. Weaned to trach collar and then transitioned to room air. She has been stable on room air. Patient reevaluated by ENT and tracheostomy changed to uncuffed trach. Acetaminophen toxicity, resolved Patient completed acetylcysteine IV infusion for APAP toxicity. Resolved. JERI secondary to acute blood loss anemia, hypotension/prerenal state; resolved Hypoglycemia Malnutrition/hypoalbuminemia JERI resolved. Nephrology is following. Continue TPN. Monitor and optimize electrolytes. Fingerstick glucose monitoring. Anasarca Resolved. Thrombocytopenia, resolved Stable. Bipolar disorder/depression/anxiety Oral meds held given n.p.o. status. Patient started on sublingual Zyprexa. Weaned off Precedex. Sublingual Versed as needed Seizures/metabolic encephalopathy/Hypoxic encephalopathy Seizures likely metabolic related per Dr. Cameron. On IV Keppra per Dr. Cameron recommendation. Started 05/24/23 Unable to confirm via EEG, per Dr. Cameron we can consider treatment for 1 month, then discontinue keppra (05/24/23-06/23/23) No further seizures. Continue sublingual Versed as needed for agitation. Patient weaned off Precedex drip. VTE: Lovenox. Code: Full Dispo: Social service is exploring disposition to SNF.
[2023-06-22] MEDS: ENOXAPARIN 40 MG/0.4 ML SQ SCH (16:21)
[2023-06-22] MEDS: AMINO ACIDS 5 %/DEXTROSE 20 % 2,000 ML IV SCH (16:21)
[2023-06-22] MEDS: DIPHENHYDRAMINE 50 MG/ML VIAL IV PRN (22:43)
[2023-06-22] MEDS ORDERED: DIPHENHYDRAMINE 50 MG/ML VIAL ONE (22:43)
[2023-06-23] MEDS ORDERED: MIDAZOLAM 10 MG/5 ML ORAL SYR ONE (02:20)
[2023-06-23] MEDS: MIDAZOLAM 10 MG/5 ML ORAL SYR PO PRN (02:20)
[2023-06-23 05:11] LABS: Magnesium 1.3 mg/dL (1.6-2.4); Phosphorus 3.7 mg/dL (2.5-4.9); Potassium 3.2 mEq/L (3.5-5.1)
[2023-06-23] MEDS ORDERED: Magnesium Sulfate 2gm IVPB 2 G/50 ML BAG IV ONE ×2 (07:00→09:19)
[2023-06-23] MEDS ORDERED: FENTANYL 25 MCG/PATCH TD SCH (09:00)
[2023-06-23] MEDS: OLANZAPINE 5 MG PO SCH (09:00)
[2023-06-23] MEDS ORDERED: NA CHLORIDE 0.9% 100 ML ONE ×2 (09:20→20:31)
[2023-06-23] MEDS ORDERED: LEVETIRACETAM 500 MG/5 ML VIAL IV ONE ×2 (09:20→20:31)
[2023-06-23] MEDS ORDERED: MUPIROCIN 2% OINT 22GM TUBE TOP ONE (09:20)
[2023-06-23] MEDS: levETIRAcetam 500 MG in NA CHLORIDE 0.9% 100 ML IV SCH ×2 (09:23→20:44)
[2023-06-23] MEDS: KCL 20 MEQ/100 mL IVPB 20 MEQ/100 ML BAG IV SCH (09:26)
[2023-06-23] MEDS: MUPIROCIN 2% OINT 22GM TUBE TOP SCH (09:27)
--- NOTE | 2023-06-23 10:34 | P.PN ---
Subjective Date of Service: 06/23/23 Chief Complaint: S/p tracheostomy with delirium doing better alert and responsive. Requiring Precedex/ c/o back pain Review of Systems 10-point ROS is otherwise unremarkable Physical Examination - Vital Signs Temperature: 98.9 F Blood Pressure: 93/74 Pulse: 58 Respirations: 19 Pulse Ox (%): 96 - Physical Exam General: Alert, Oriented x3 Neck: Supple Respiratory: Clear to auscultation bilaterally, Friction rub Cardiovascular: Normal pulses Assessment And Plan - Current Problems (Diagnosis) (1) Respiratory failure Current Visit: Yes Status: Acute Plan: Resolved. Trach capped. will Dw ENT to remiove trach Qualifiers: Chronicity: acute (2) Delirium Current Visit: Yes Status: Acute Plan: C/o of pain. Add low dose fentanyl patach . Hopefully can wean off precedex
[2023-06-23] MEDS ORDERED: FENTANYL 25 MCG/PATCH TD ONE (12:04)
[2023-06-23] MEDS: FENTANYL 25 MCG/PATCH TD SCH (12:06)
--- NOTE | 2023-06-23 12:07 | P.PN ---
Subjective Date of Service: 06/23/23 Chief Complaint: S/p tracheostomy with delirium Patient is awake and alert. No issues overnight, no agitation, no seizures. Stable on room air. Physical Examination - Vital Signs Temperature: 98.9 F Blood Pressure: 110/77 Pulse: 58 Respirations: 19 Pulse Ox (%): 96 Assessment And Plan - Plan Physical Exam: GEN: Awake, oriented x2, NAD. Neck: Tracheostomy. CV: Regular rate and rhythm, trace b/l pedal edema Pulm: diminished at bases bilaterally, clear bilaterally ABD: Soft, nondistended, nontender Neuro: No focal motor deficit. 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 (05/05) Dr. Foster discussed with bariatric surgeons - not much options, need to wait many months before would attempt any further intra-abdominal procedures Monitor for aspiration, Continue TPN at the current rate. Total 12 units PRBC transfused. Stable hemoglobin. Patient is post Protonix drip. Patient have had at least 6 weeks of PPI Hemoglobin has been stable. Lovenox for DVT prophylaxis. Pulmonary Dr. Anthony added fentanyl patch for pain UTI, MDR Pseudomonas Aeruginosa s/p Anti-Infective Agents Meropenem (05/06-05/24), (05/30-06/03) Vancomycin (05/06-05/16) (05/19-06/04) Micafungin (05/20-06/03) Cefepime (06/02-06/12) afebrile, leukocytosis resolved. Completed antibiotic Acute hypoxic respiratory failure/acute lung injury s/p Tracheostomy 06/04/23 Patient extubated to oxygen by nasal cannula 05/21. Had to be re-intubated o vernight 05/29 for hypoxic respiratory failure CTA chest (05/30): No PE. RLL atelectasis, Mild bilateral pulmonary opacities, esophageal dilation Initial Sputum culture grew Pseudomonas and completed 2 week course of merrem, however sputum growing pseudomonas again, now resistant to merrem (06/02) ENT recommended cuffed tracheostomy to reduce risk of aspiration. s/p Tracheostomy 06/04/23. Weaned to trach collar and then transitioned to room air. She has been stable on room air. Patient reevaluated by ENT and tracheostomy changed to uncuffed trach. Acetaminophen toxicity, resolved Patient completed acetylcysteine IV infusion for APAP toxicity. Resolved. JERI secondary to acute blood loss anemia, hypotension/prerenal state; resolved Hypoglycemia Malnutrition/hypoalbuminemia JERI resolved. Nephrology is following. Continue TPN. Monitor and optimize electrolytes. Fingerstick glucose monitoring. Anasarca Resolved. Thrombocytopenia, resolved Stable. Bipolar disorder/depression/anxiety Oral meds held given n.p.o. status. Patient started on sublingual Zyprexa. Weaned off Precedex. Sublingual Versed as needed Seizures/metabolic encephalopathy/Hypoxic encephalopathy Seizures likely metabolic related per Dr. Cameron. On IV Keppra per Dr. Cameron recommendation. Started 05/24/23 Unable to confirm via EEG, per Dr. Cameron we can consider treatment for 1 month, then discontinue keppra (05/24/23-06/23/23) No further seizures. Continue sublingual Versed as needed for agitation. Patient weaned off Precedex drip. VTE: Lovenox. Code: Full Dispo: Social service is exploring disposition to SNF.
--- NOTE | 2023-06-23 16:33 | P.PN ---
Subjective Date of Service: 06/23/23 Chief Complaint: S/p tracheostomy with delirium Subjective: No new changes Physical Examination - Vital Signs Temperature: 98.9 F Blood Pressure: 140/76 Pulse: 63 Respirations: 19 Pulse Ox (%): 98 - Physical Exam General: Other (chronically ill-appearing) HEENT: Atraumatic, Normocephalic Neck: Supple Respiratory: Other (symmetric chest expansion) Cardiovascular: No rubs, No murmurs Gastrointestinal: Soft and benign Musculoskeletal: No clubbing Integumentary: No warmth Neurological: Normal tone Urinary: Other (no bladder distention) External genitalia: Deferred Rectal: Deferred Assessment And Plan - Plan 1. Acute kidney injury secondary to poor perfusion ATN, toxic ATN. SCr improved to 0.4-0.6. On TPN. Monitor renal panel. 2. Hypokalemia, hypomagnesemia, hypophosphatemia. KCl repletion today. 3. Hypernatremia. Improved. IV hydration & TPN as above. 4. Gastric pouch perforation, status post surgery. Per Gen Surg service. 5. Acute/chronic respiratory failure. +Trach. Per ICU team. 6. Anemia. pRBC transf prn for Hgb < 7.0. No indication for DAMON.
[2023-06-23] MEDS: ENOXAPARIN 40 MG/0.4 ML SQ SCH (17:28)
[2023-06-23] MEDS: AMINO ACIDS 5 %/DEXTROSE 20 % 2,000 ML IV SCH (17:29)
[2023-06-23] MEDS: DEXMEDETOMIDINE HCL 1,000 MCG in NA CHLORIDE 0.9% 490 ML IV SCH (19:28)
[2023-06-24 05:04] LABS: Absolute Lymphocytes (CBC) 0.9 K/uL (0.7-4.9); Hematocrit 26.6 % (36.0-45.0); Lymphocytes % 18.2 % (15.3-44.8); MCV 90.6 fL (80-100); MPV 8.8 fL (7.6-11.3); Platelets 242 thou/uL (152-406); RBC Red Blood Cell Count 2.93 M/uL (3.86-4.86)
[2023-06-24 05:23] LABS: Magnesium 1.5 mg/dL (1.6-2.4); Potassium 3.1 mEq/L (3.5-5.1)
[2023-06-24] MEDS ORDERED: Magnesium Sulfate 2gm IVPB 2 G/50 ML BAG IV ONE (07:59)
[2023-06-24] MEDS: DEXMEDETOMIDINE HCL 1,000 MCG in NA CHLORIDE 0.9% 490 ML IV SCH (08:26)
[2023-06-24] MEDS: MUPIROCIN 2% OINT 22GM TUBE TOP SCH (08:27)
[2023-06-24] MEDS: OLANZAPINE 5 MG PO SCH (08:28)
[2023-06-24] MEDS: LORazepam 2 MG/ML VIAL IV PRN ×2 (08:30→22:44)
[2023-06-24] MEDS ORDERED: POTASSIUM CL 40 MEQ in NA CHLORIDE 0.9% 500 ML IV ONE (09:00)
[2023-06-24] MEDS ORDERED: MIDAZOLAM 10 MG/5 ML ORAL SYR ONE ×2 (09:22→17:23)
[2023-06-24] MEDS: MIDAZOLAM 10 MG/5 ML ORAL SYR PO PRN ×2 (09:26→17:26)
--- NOTE | 2023-06-24 09:42 | P.PN ---
Date of Service: 06/24/23 Chief Complaint: Respiratory failure Subjective: Patient is awake, confused. Hallucinations/delirium. On precedex drip. Patient reports feeling cold. No other complaints at this time. No acute events overnight. Physical Examination Temp Pulse Resp BP Pulse Ox 98.9 F 63 19 140/76 98 06/24/23 08:38 06/24/23 08:38 06/24/23 08:38 06/24/23 08:38 06/24/23 08:38 General: Awake. In no apparent distress. Oriented x2. HEENT: Atraumatic, Normocephalic. Tracheostomy. Respiratory: Trach. unlabored respirations. Cardiovascular: Regular rate and rhythm. No edema. Gastrointestinal: Abdominal surgical incision sites. Mild tenderness. Non- distended. Integumentary: Abdominal surgical site dressing is clean dry and intact. ARMIN drains with minimal drainage. MSK: moves all extremities. Generalized weakness. : [facility] Laboratory Data - Reviewed Microbiology Data - Reviewed Imagings Data: - CT abdomen pelvis 05/18: ": Bibasilar lung consolidations are present posteriorly which may represent infiltrate or atelectasis. There is no evidence of intra- abdominal or intrapelvic abscess collection. Small moderate left inguinal hernia containing nonobstructed small bowel." - XR Chest 05/23: "Patchy bibasilar opacities, left greater than right (atelectasis and/or infiltrate)." - CT head spine wo contrast 05/23: "No acute intracranial or extra-axial abnormality. No acute cervical spine injury." - XR Chest 05/29: "The lungs are grossly clear. The heart is normal in size. No displaced fractures.Left-sided venous catheter has tip in the SVC. Enteric tube descends into the upper abdomen." - XR KUB 05/29: "Tip of the enteric tube is in the stomach. Skin tory are noted along the midline. Several drainage catheters are seen. Mildly prominent central small bowel loops identified." - CTA Chest 05/30: " Negative for a pulmonary embolism. Right lower lobe atelectasis. Mild bilateral pulmonary opacities may represent mild interstitial pulmonary edema. Esophageal dilatation" - CT abdomen pelvis w contrast 05/30: ": 4 centimeter subcapsular splenic hematoma mildly diminished in size. 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 Foster on 05/05. - Blood cultures 05/05: No growth to date - Repeat blood culture 05/11: No growth 24 hours - Urine culture 05/06: No growth to date - Pus drainage from midline abdominal incision site by Dr. Foster at bedside 05/13 - CT abdomen pelvis 05/18: ": Bibasilar lung consolidations are present posteriorly which may represent infiltrate or atelectasis. There is no evidence of intra- abdominal or intrapelvic abscess collection. Small moderate left inguinal hernia containing nonobstructed small bowel." - Fluconazole started 05/11 due to high risk/concern for superimposed fungal infection, patient also on TPN. Switched to Micafungin on 05/20 - Completed 14 days Vancomycin and Meropenem - Completed 14 days Micafungin Acute Hypoxic Respiratory Failure - Resolved - pulmonology following - sputum culture 05/11: Pseudomonoas aeruginosa - Treated with Meropenem IV. - Extubated 05/21 - XR Chest 05/29: "The lungs are grossly clear. The heart is normal in size. No displaced fractures.Left-sided venous catheter has tip in the SVC. Enteric tube descends into the upper abdomen." - 05/29: patient became hypoxic, hypotensive and tachycardic and was subsequently intubated - Sputum culture 05/31: Pseudomonoas aeruginosa - Completed 10 days Cefepime 06/02-06/12 - Tracheostomy placed on 06/03 Catheter-Associated Urinary Tract Infection - Urine culture 05/30: Pseudomonoas aeruginosa. resistant to meropenem. - Completed 10 days Cefepime (06/02-06/12) Anti-Infective Agents - Cefepime (06/02-06/12) - Vancomycin (05/06-05/16) (05/19-12/12) - Micafungin (05/20-06/03) - Meropenem (05/06-05/24), (05/30-06/03) Recommendations Temp of 100.7 F today. Patient shivering, reports feeling cold/chills. Obtain flu/covid pcr. - Abdominal surgical site wound care per surgery team - Monitor WBC and fever trends - Pressure offloading measures:Turn patient q2h, wedge pillow, low air-loss mattress. Apply barrier cream to sacrum/buttocks - Seizure precautions - Trach care - Wean off precedex as tolerated. Case discussed with Bam Kaye
[2023-06-24] MEDS ORDERED: ZIPRASIDONE MESYLA 20 MG/VIAL IM ONE ×2 (09:57→19:19)
[2023-06-24] MEDS: ZIPRASIDONE MESYLA 20 MG/VIAL IM PRN ×2 (10:05→19:23)
--- NOTE | 2023-06-24 10:31 | P.PN ---
Subjective Date of Service: 06/24/23 Chief Complaint: S/p tracheostomy with delirium He is alert responsive cooperative delirious delusions and is back on Precedex drip multiple specimens have isolated Pseudomonas from the sputum Review of Systems Unremarkable Physical Examination - Vital Signs Temperature: 98.9 F Blood Pressure: 164/82 Pulse: 102 Respirations: 20 Pulse Ox (%): 100 - Physical Exam General: Alert, Oriented x3 Cardiovascular: No edema, Normal S1 S2 Gastrointestinal: Normal bowel sounds Assessment And Plan - Current Problems (Diagnosis) (1) Delirium Current Visit: Yes Status: Acute Plan: She has persistent delirium requiring Precedex and sedation so has some delusions will add Geodon need aggressive physical therapy discussed with Dr. Campoverde regarding removal of trach has been capped for the over 2 days (2) Hypertension Current Visit: Yes Status: Acute Plan: Started clonidine patch Qualifiers: Hypertension type: unspecified Qualified Code(s): I10 - Essential (primary) hypertension
[2023-06-24] MEDS ORDERED: CLONIDINE 0.1 MG/PATCH TD SCH (10:45)
[2023-06-24] MEDS ORDERED: ACETAMINOPHEN 650MG/RECT SUPP PR ONE (11:03)
[2023-06-24] MEDS: ACETAMINOPHEN 650MG/RECT SUPP PR PRN (11:25)
--- NOTE | 2023-06-24 14:19 | P.PN ---
Subjective Date of Service: 06/24/23 Chief Complaint: S/p tracheostomy with delirium Patient is awake and alert. Nurse staff reports some episodes of agitation this morning Patient complaint being agitated and attributed it to anxiety attack. Physical Examination - Vital Signs Temperature: 100.0 F Blood Pressure: 128/74 Pulse: 123 Respirations: 22 Pulse Ox (%): 100 Assessment And Plan - Plan Physical Exam: GEN: Awake, oriented x2, NAD. Neck: Tracheostomy. CV: Regular rate and rhythm, trace b/l pedal edema Pulm: diminished at bases bilaterally, clear bilaterally ABD: Soft, nondistended, nontender Neuro: No focal motor deficit. 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 (05/05) Dr. Foster discussed with bariatric surgeons - not much options, need to wait many months before would attempt any further intra-abdominal procedures Monitor for aspiration, Continue TPN at the current rate. Total 12 units PRBC transfused. Stable hemoglobin. Patient is post Protonix drip. Patient have had at least 6 weeks of PPI Hemoglobin has been stable. Lovenox for DVT prophylaxis. On fentanyl patch for pain. Dr. Anthony UTI, MDR Pseudomonas Aeruginosa s/p Anti-Infective Agents Meropenem (05/06-05/24), (05/30-06/03) Vancomycin (05/06-05/16) (05/19-06/04) Micafungin (05/20-06/03) Cefepime (06/02-06/12) afebrile, leukocytosis resolved. Patient completed antibiotic Acute hypoxic respiratory failure/acute lung injury s/p Tracheostomy 06/04/23 Patient extubated to oxygen by nasal cannula 05/21. Had to be re-intubated overnight 05/29 for hypoxic respiratory failure CTA chest (05/30): No PE. RLL atelectasis, Mild bilateral pulmonary opacities, esophageal dilation Initial Sputum culture grew Pseudomonas and completed 2 week course of merrem, however sputum growing pseudomonas again, now resistant to merrem (06/02) ENT recommended cuffed tracheostomy to reduce risk of aspiration. s/p Tracheostomy 06/04/23. Weaned to trach collar and then transitioned to room air. She has been stable on room air. Patient reevaluated by ENT and tracheostomy changed to uncuffed trach. Acetaminophen toxicity, resolved Patient completed acetylcysteine IV infusion for APAP toxicity. Resolved. JERI secondary to acute blood loss anemia, hypotension/prerenal state; resolved Hypoglycemia Malnutrition/hypoalbuminemia JERI resolved. Nephrology is following. Continue TPN. Monitor and optimize electrolytes. Fingerstick glucose monitoring. Anasarca Resolved. Thrombocytopenia, resolved Stable. Bipolar disorder/depression/anxiety Oral meds held given n.p.o. status. Patient started on sublingual Zyprexa-Titrate Weaned off Precedex. On Sublingual Versed as needed Seizures/metabolic encephalopathy/Hypoxic encephalopathy Seizures likely metabolic related per Dr. Cameron. On IV Keppra per Dr. Cameron recommendation. Started 05/24/23 Unable to confirm via EEG, per Dr. Cameron we can consider treatment for 1 sat, then discontinue keppra (05/24/23-06/23/23) No further seizures. Continue sublingual Versed as needed for agitation. Patient weaned off Precedex drip. VTE: Lovenox. Code: Full Dispo: Social service is exploring disposition to SNF.
[2023-06-24] MEDS: AA 5%/D20W/ELECTROLYTES-TPN 2,000 ML, Lipids 20% 250 ML with MULTIVITAMINS INJ 10 ML IV SCH ×3 (16:53)
[2023-06-24] MEDS: ENOXAPARIN 40 MG/0.4 ML SQ SCH (16:55)
[2023-06-24] MEDS ORDERED: WATER FOR INJ,STERILE 10 ML ONE (19:19)
[2023-06-24 20:34] LABS: SARS-COV-2 RT PCR NEGATIVE (NEGATIVE)
--- NOTE | 2023-06-24 21:46 | PN ---
Date of Progress Note: 06/24/2023 Chief Complaint: Acute kidney injury. Subjective: The patient remains in ICU. She is bed bound. She underwent tracheostomy for respirato ry failure. She remains confused, although she is awake and follows commands. She has been treated for delirium, acute kidney injury was secondary to poor perfusion, and she developed acute tubular ne crosis. Serum creatinine improved gradually to baseline and currently is ranging from 0.4 to 0.6. The patient is on TPN. Review of Systems: Denies pain. Denies shortness of breath. Objective: Lungs: Normal respiratory effort. Heart: S1, S2. Abdomen: Soft, benign. Extremities: No edema. Impression And Plan: 1.Acute kidney injury secondary to poor perfusion. The patient developed ATN. Serum creatinine lev el stabilized. The patient will continue TPN and continue to monitor renal function. 2.Hypokalemia, hypomagnesemia, and hypophosphatemia. The patient is to receive potassium chloride b y depletion today as well as she received magnesium sulfate for hypomagnesemia, improved. Continue I V hydration as needed as well as TPN. 3.Gastric pouch perforation, status post surgery. 4.Acute on chronic respiratory failure. The patient has trach and ICU Team is following. EB/MODL Voice ID: [id number] Report ID: [id number]
[2023-06-25] MEDS ORDERED: MIDAZOLAM 10 MG/5 ML ORAL SYR ONE ×3 (00:29→22:39)
[2023-06-25] MEDS: MIDAZOLAM 10 MG/5 ML ORAL SYR PO PRN ×3 (00:30→22:41)
[2023-06-25] MEDS: DEXMEDETOMIDINE HCL 1,000 MCG in NA CHLORIDE 0.9% 490 ML IV SCH ×2 (03:45→18:07)
[2023-06-25 05:23] LABS: Absolute Lymphocytes (CBC) 1.1 K/uL (0.7-4.9); Hematocrit 26.8 % (36.0-45.0); Lymphocytes % 17.1 % (15.3-44.8); MCV 90.5 fL (80-100); MPV 9.2 fL (7.6-11.3); Platelets 214 thou/uL (152-406); RBC Red Blood Cell Count 2.96 M/uL (3.86-4.86)
[2023-06-25 05:34] LABS: Magnesium 1.6 mg/dL (1.6-2.4); Phosphorus 3.8 mg/dL (2.5-4.9); Potassium 3.4 mEq/L (3.5-5.1); Protein, Total 6.4 g/dL (6.4-8.2)
[2023-06-25] MEDS: KCL 20 MEQ/100 mL IVPB 20 MEQ/100 ML BAG IV SCH ×2 (06:06→09:18)
[2023-06-25] MEDS ORDERED: ACETAMINOPHEN 650MG/RECT SUPP PR ONE (08:17)
--- NOTE | 2023-06-25 08:42 | P.PN ---
Date of Service: 06/25/23 Subjective: More alert / awake today Speech sounds clearer. more talkative and easier to understand. continues with intermittent agitation, needing PRN ativan Feels more sinus congestion last 1-2 days tachycardic and febrile overnight, +Soft BP ROS: 10 point ROS as noted above, otherwise negative Physical Exam: GEN: Awake, oriented x2, NAD, mildly confused HEENT: Normal conjunctiva, sclera anicteric CV: Regular rate and rhythm, trace b/l pedal edema Pulm: diminished at bases bilaterally, clear bilaterally; nonlabored ABD: Soft, nondistended, nontender Neuro: No focal motor deficit. purewick in place picc in place +trach Vitals reviewed Problem List: Gastric pouch perforation/rupture with history of David-en-Y bypass S/P repair 05/05 Acute blood loss anemia secondary to upper GI bleed Hypovolemic shock secondary to GI bleed UTI, MDR Pseudomonas Aeruginosa Acute hypoxic respiratory failure/acute lung injury s/p Tracheostomy 06/04/23 Acetaminophen toxicity, resolved JERI secondary to acute blood loss anemia, hypotension/prerenal state; resolved Hypoglycemia Malnutrition/hypoalbuminemia Anasarca, improved Bipolar disorder/depression/anxiety Seizures/metabolic encephalopathy/Hypoxic encephalopathy 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 (05/05) Dr. Foster discussed with bariatric surgeons - not much options, need to wait many months before would attempt any further intra-abdominal procedures Monitor for aspiration, Continue TPN at the current rate. Total 12 units PRBC transfused. s/p protonix drip; Patient has had at least 6 weeks of PPI Hemoglobin has been stable. On fentanyl patch for pain. UTI, MDR Pseudomonas Aeruginosa s/p Anti-Infective Agents Meropenem (05/06-05/24), (05/30-06/03) Vancomycin (05/06-05/16) (05/19-06/04) Micafungin (05/20-06/03) Cefepime (06/02-06/12) Off antibiotics since 06/12. febrile yesterday, Continue to monitor. CXR ordered for further eval Acute hypoxic respiratory failure/acute lung injury s/p Tracheostomy 06/04/23 Patient extubated to oxygen by nasal cannula 05/21. Had to be re-intubated overnight 05/29 for hypoxic respiratory failure CTA chest (05/30): No PE. RLL atelectasis, Mild bilateral pulmonary opacities, esophageal dilation Initial Sputum culture grew Pseudomonas and completed 2 week course of merrem, however sputum growing pseudomonas again, now resistant to merrem (06/02) ENT recommended cuffed tracheostomy to reduce risk of aspiration. s/p Tracheostomy 06/04/23. Weaned to trach collar and then transitioned to room air. She has been stable on room air. Patient reevaluated by ENT and tracheostomy changed to uncuffed trach. Dr. Gabrielle calvillo is following Fever noted overnight. CXR ordered for further eval Acetaminophen toxicity, resolved Patient completed acetylcysteine IV infusion for APAP toxicity. Resolved. JERI secondary to acute blood loss anemia, hypotension/prerenal state; resolved Hypoglycemia Malnutrition/hypoalbuminemia JERI resolved. Nephrology is following. Continue TPN. Monitor and optimize electrolytes. Fingerstick glucose monitoring. Bipolar disorder/depression/anxiety Oral meds held given NPO status. Patient started on sublingual Zyprexa-Titrate On Sublingual Versed as needed Seizures/metabolic encephalopathy/Hypoxic encephalopathy Seizures likely metabolic related per Dr. Cameron. Given IV keppra (05/24-06/23) to cover for possible seizure given no EEG to eval. No further seizures. Discussed with Dr. Cameron, dc'd 06/23 after 1 month trial Continue sublingual Versed as needed for agitation. remains on precedex drip. wean as tolerated VTE: Lovenox Code: Full Dispo: Social service is exploring disposition to SNF.
--- NOTE | 2023-06-25 08:51 | P.PN ---
Date of Service: 06/25/23 Chief Complaint: Respiratory failure Subjective: Patient in bed, in no apparent distress. Denies any new or worsening complaints at this time. Elevated temp yesterday 100.7F. Influenza/covid/rsv negative. XR Chest 06/25 "Mild atelectasis is present in both lung bases. The lungs are otherwise clear. Tracheostomy tube is in place in expected positioning. Right-sided PICC line has tip in the SVC. The heart is normal in size." Physical Examination Temp Pulse Resp BP Pulse Ox 97 F 63 27 H 93/59 L 98 06/25/23 06:00 06/25/23 06:00 06/25/23 06:00 06/25/23 06:00 06/25/23 06:00 General: Awake. In no apparent distress. Oriented x2. HEENT: Atraumatic, Normocephalic. Tracheostomy. Respiratory: Trach. unlabored respirations. Cardiovascular: Regular rate and rhythm. No edema. Gastrointestinal: Abdominal surgical incision site. Non-distended. Integumentary: Abdominal surgical site dressing is clean dry and intact. ARMIN drains with minimal drainage. MSK: moves all extremities. Generalized weakness. : [facility] Laboratory Data - Reviewed Microbiology Data - Reviewed Imagings Data: - CT abdomen pelvis 05/18: ": Bibasilar lung consolidations are present posteriorly which may represent infiltrate or atelectasis. There is no evidence of intra- abdominal or intrapelvic abscess collection. Small moderate left inguinal hernia containing nonobstructed small bowel." - XR Chest 05/23: "Patchy bibasilar opacities, left greater than right (atelectasis and/or infiltrate)." - CT head spine wo contrast 05/23: "No acute intracranial or extra-axial abnormality. No acute cervical spine injury." - XR Chest 05/29: "The lungs are grossly clear. The heart is normal in size. No displaced fractures.Left-sided venous catheter has tip in the SVC. Enteric tube descends into the upper abdomen." - XR KUB 05/29: "Tip of the enteric tube is in the stomach. Skin tory are noted along the midline. Several drainage catheters are seen. Mildly prominent central small bowel loops identified." - CTA Chest 05/30: " Negative for a pulmonary embolism. Right lower lobe atelectasis. Mild bilateral pulmonary opacities may represent mild interstitial pulmonary edema. Esophageal dilatation" - CT abdomen pelvis w contrast 05/30: ": 4 centimeter subcapsular splenic hematoma mildly diminished in size. No acute abnormality is displayed" - XR Chest 06/25: "Portable technique limits examination quality. Mild atelectasis is present in both lung bases. The lungs are otherwise clear. Tracheostomy tube is in place in expected positioning. Right-sided PICC line has tip in the SVC. The heart is normal in size." Medications List: Reviewed Assessment and plan Problem List Gastric pouch perforation/rupture s/p repair on 05/05 Acute blood loss anemia secondary to gastric pouch perforation Acute Hypoxic Respiratory Failure Acute Kidney Injury Acetaminophen Toxicity Bipolar disorder Depression Anxiety Gastric Pouch Perforation/Rupture/Bleeding - History of laura-en-Y bypass - Underwent emergent exploratory laparotomy with findings of acute abdominal pneumoperitoneum, hemoperitoneum, gastric pouch perforation/rupture/bleeding --> small bowel laura limb repair, repair of gastric pouch rupture with bleeding control, extensive lysys of adhesions, jejunostomy, evacuation of hemoperitoneum performed by Dr. Foster on 05/05. - Blood cultures 05/05: No growth to date - Repeat blood culture 05/11: No growth 24 hours - Urine culture 05/06: No growth to date - Pus drainage from midline abdominal incision site by Dr. Foster at bedside 05/13 - CT abdomen pelvis 05/18: ": Bibasilar lung consolidations are present posteriorly which may represent infiltrate or atelectasis. There is no evidence of intra- abdominal or intrapelvic abscess collection. Small moderate left inguinal hernia containing nonobstructed small bowel." - Fluconazole started 05/11 due to high risk/concern for superimposed fungal infection, patient also on TPN. Switched to Micafungin on 05/20 - Completed 14 days Vancomycin and Meropenem - Completed 14 days Micafungin Acute Hypoxic Respiratory Failure - Resolved - pulmonology following - sputum culture 05/11: Pseudomonoas aeruginosa - Treated with Meropenem IV. - Extubated 05/21 - XR Chest 05/29: "The lungs are grossly clear. The heart is normal in size. No displaced fractures.Left-sided venous catheter has tip in the SVC. Enteric tube descends into the upper abdomen." - 05/29: patient became hypoxic, hypotensive and tachycardic and was subsequently intubated - Sputum culture 05/31: Pseudomonoas aeruginosa - Completed 10 days Cefepime 06/02-06/12 - Tracheostomy placed on 06/03 Catheter-Associated Urinary Tract Infection - Urine culture 05/30: Pseudomonoas aeruginosa. resistant to meropenem. - Completed 10 days Cefepime (06/02-06/12) Anti-Infective Agents - Cefepime (06/02-06/12) - Vancomycin (05/06-05/16) (05/19-06/04) - Micafungin (05/20-06/03) - Meropenem (05/06-05/24), (05/30-06/03) Recommendations - Monitor fever trends. Off antibiotics since 06/13. - Abdominal surgical site wound care per surgery team - wean of sedation as tolerated. - Pressure offloading measures:Turn patient q2h, wedge pillow, low air-loss mattress. Apply barrier cream to sacrum/buttocks - Seizure precautions - Trach care Case discussed with Bam Kaye
[2023-06-25] MEDS: OLANZAPINE 5 MG PO SCH (09:00)
[2023-06-25] MEDS: MUPIROCIN 2% OINT 22GM TUBE TOP SCH (09:00)
--- NOTE | 2023-06-25 09:25 | RAD REPORT ---
EXAM DESCRIPTION: RAD - Chest Single View - 06/25/2023 9:17 am CLINICAL HISTORY: fever, eval for aspiration Chest pain. COMPARISON: Chest Single View dated 06/03/2023; Chest Single View dated 06/03/2023; Chest Single Vie w dated 05/31/2023; Chest Single View dated 05/29/2023 FINDINGS: Portable technique limits examination quality. Mild atelectasis is present in both lung bases. The lungs are otherwise clear. Tracheostomy tube is i n place in expected positioning. Right-sided PICC line has tip in the SVC. The heart is normal in siz e.
--- NOTE | 2023-06-25 11:58 | PN ---
Date of Progress Note: 06/25/2023 Subjective: The patient was admitted with perforated viscus. The patient had acute kidney injury, a nasarca. Did not require any dialysis. The patient maintained on good diuresis. The patient is fee ling better. Continue to maintain on TPN. Physical Examination: Vital Signs: When I saw the patient, blood pressure 100/63, pulse of 59, afebrile. Chest: Clear to auscultation. Heart: S1 and S2 regular. Abdomen: Soft, nontender. Extremities: No edema. Neurologic: Alert. No focality. Laboratory Data: Hemoglobin 9.1. Sodium 136, potassium 3.4, bicarb 19, BUN 23, creatinine 0.4, calc ium 8.6, phosphorus 3.8, magnesium 1.6. Current Medications: The patient on its include Lovenox, hydralazine, TPN, magnesium oxide, KCl. Assessment And Plan: 1.Acute kidney injury secondary to toxic ATN with anasarca, recovered, resolved. 2.Hyponatremia, resolved. 3.Hypokalemia, hypomagnesemia, and hypophosphatemia. Continue TPN. 4.Perforated viscus, status post treatment, recovered. 5.Gastrointestinal bleed, stable. Follow up with GI and Primary. LISA/JIMMIE Voice ID: [id number] Report ID: [id number]
[2023-06-25] MEDS: AMINO ACIDS 5 %/DEXTROSE 20 % 2,000 ML IV SCH (16:56)
[2023-06-25] MEDS ORDERED: ENOXAPARIN 40 MG/0.4 ML SQ ONE (16:57)
[2023-06-25] MEDS: ENOXAPARIN 40 MG/0.4 ML SQ SCH (16:57)
[2023-06-26 04:34] LABS: Absolute Lymphocytes (CBC) 1.1 K/uL (0.7-4.9); Hematocrit 25.2 % (36.0-45.0); Lymphocytes % 19.5 % (15.3-44.8); MCV 90.1 fL (80-100); Platelets 195 thou/uL (152-406)
[2023-06-26 04:43] LABS: Magnesium 1.6 mg/dL (1.6-2.4); Phosphorus 3.3 mg/dL (2.5-4.9); Potassium 3.5 mEq/L (3.5-5.1)
[2023-06-26] MEDS ORDERED: MIDAZOLAM 10 MG/5 ML ORAL SYR ONE ×2 (05:36→20:26)
[2023-06-26] MEDS: MIDAZOLAM 10 MG/5 ML ORAL SYR PO PRN ×2 (05:37→20:27)
[2023-06-26] MEDS ORDERED: FENTANYL 25 MCG/PATCH TD ONE (07:15)
[2023-06-26] MEDS: FENTANYL 25 MCG/PATCH TD SCH (07:38)
[2023-06-26] MEDS: OLANZAPINE 5 MG PO SCH (07:39)
[2023-06-26] MEDS: MUPIROCIN 2% OINT 22GM TUBE TOP SCH (07:39)
[2023-06-26] MEDS: DEXMEDETOMIDINE HCL 1,000 MCG in NA CHLORIDE 0.9% 490 ML IV SCH ×2 (07:51→08:01)
--- NOTE | 2023-06-26 10:07 | P.PN ---
Date of Service: 06/26/23 Subjective: Precedex up/down seems to get worse in later afternoon/early evening each day afebrile denies any new / worsening symptoms ROS: 10 point ROS as noted above, otherwise negative Physical Exam: GEN: Awake, oriented x2, NAD HEENT: Normal conjunctiva, sclera anicteric CV: Regular rate and rhythm, trace b/l pedal edema Pulm: diminished at bases bilaterally, clear bilaterally; nonlabored ABD: Soft, nondistended, nontender Neuro: No focal motor deficit. 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 S/P repair 05/05 Acute blood loss anemia secondary to upper GI bleed Hypovolemic shock secondary to GI bleed UTI, MDR Pseudomonas Aeruginosa Acute hypoxic respiratory failure/acute lung injury s/p Tracheostomy 06/04/23 Acetaminophen toxicity, resolved JERI secondary to acute blood loss anemia, hypotension/prerenal state; resolved Hypoglycemia Malnutrition/hypoalbuminemia Anasarca, improved Bipolar disorder/depression/anxiety Seizures/metabolic encephalopathy/Hypoxic encephalopathy 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 (05/05) Dr. Foster discussed with bariatric surgeons - not much options, need to wait many months before would attempt any further intra-abdominal procedures Monitor for aspiration, Continue TPN at the current rate. Total 12 units PRBC transfused. s/p protonix drip; Patient has had at least 6 weeks of PPI Hemoglobin has been stable. On fentanyl patch for pain. UTI, MDR Pseudomonas Aeruginosa s/p Anti-Infective Agents Meropenem (05/06-05/24), (05/30-06/03) Vancomycin (05/06-05/16) (05/19-06/04) Micafungin (05/20-06/03) Cefepime (06/02-06/12) Off antibiotics since 06/12. Afebrile since (06/24) Acute hypoxic respiratory failure/acute lung injury s/p Tracheostomy 06/04/23 Patient extubated to oxygen by nasal cannula 05/21. Had to be re-intubated overnight 05/29 for hypoxic respiratory failure CTA chest (05/30): No PE. RLL atelectasis, Mild bilateral pulmonary opacities, esophageal dilation Initial Sputum culture grew Pseudomonas and completed 2 week course of merrem, however sputum growing pseudomonas again, now resistant to merrem (06/02) ENT recommended cuffed tracheostomy to reduce risk of aspiration. s/p Tracheostomy 06/04/23. Weaned to trach collar and then transitioned to room air. She has been stable on room air. Patient reevaluated by ENT and tracheostomy changed to uncuffed trach. Dr. Gabrielle Melendez pulmaureen is following CXR (06/25): mild atelectasis in both lung bases. otherwise clear. Acetaminophen toxicity, resolved Patient completed acetylcysteine IV infusion for APAP toxicity. Resolved. JERI secondary to acute blood loss anemia, hypotension/prerenal state; resolved Hypoglycemia Malnutrition/hypoalbuminemia JERI resolved. Nephrology is following. Continue TPN. Monitor and optimize electrolytes. Fingerstick glucose monitoring. Bipolar disorder/depression/anxiety Oral meds held given NPO status. Patient started on sublingual Zyprexa-Titrate On Sublingual Versed as needed Seizures/metabolic encephalopathy/Hypoxic encephalopathy Seizures likely metabolic related per Dr. Cameron. Given IV keppra (05/24-06/23) to cover for possible seizure given no EEG to eval. No further seizures. Discussed with Dr. Cameron, dc'd 06/23 after 1 month trial Continue sublingual Versed as needed for agitation. remains on precedex drip. wean as tolerated VTE: Lovenox Code: Full Dispo: Social service is exploring disposition to SNF.
--- NOTE | 2023-06-26 11:09 | PN ---
Date of Progress Note: 06/26/2023 Subjective: Patient was admitted for perforated viscus, acute kidney injury, anasarca, did not requi re dialysis. 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 Physical Examination: Vital Signs: When I saw the patient, blood pressure 96/62, pulse of 58, afebrile. Chest: Clear to auscultation. Heart: S1, S2. Regular. Abdomen: Soft, nontender. Extremities: No edema. Neurologic: Alert. No focality. Laboratory Data: Hemoglobin 8.7. Sodium 137, potassium 3.5, bicarb 21, BUN 20, creatinine 0.4, calc ium 8.6. Phosphorus 3.3, magnesium 1.6. Current Medications: The patient is on include: 1.Amino acids. 2.Mupirocin. 3.TPN. Assessment And Plan: 1.Acute kidney injury secondary to poor perfusion acute tubular necrosis, recover, resolved. Normal volume. Keep holding diuresis. 2.Hypertension, controlled, optimal. 3.Electrolyte imbalance, depleted of potassium and magnesium. Phosphorus has been normalized. We w ill continue TPN as the plan of yesterday and we will follow up. 4.Deconditioning. Continue physical therapy, occupational therapy. 5.Perforated viscus as by primary. LISA/JIMMIE Voice ID: [id number] Report ID: [id number]
--- NOTE | 2023-06-26 12:17 | P.PN ---
Subjective Date of Service: 06/26/23 Chief Complaint: S/p tracheostomy with delirium Patient continues to be in delirium and requiring Precedex in addition to other sedatives due to agitation patient is still delusional Review of Systems Unremarkable General: Weakness Physical Examination - Vital Signs Temperature: 97.8 F Blood Pressure: 96/62 Pulse: 58 Respirations: 24 Pulse Ox (%): 99 - Physical Exam General: Alert, Oriented x1 Respiratory: Clear to auscultation bilaterally, Normal air movement Cardiovascular: Normal S1 S2 Assessment And Plan - Current Problems (Diagnosis) (1) Delirium Current Visit: Yes Status: Acute Plan: Patient is 48 years of age continue to experience delirium unable to wean off Precedex and high doses of thiamine (2) Hypertension Current Visit: Yes Status: Acute Plan: Blood pressure is low DC all antihypertensive medication Qualifiers: Hypertension type: unspecified Qualified Code(s): I10 - Essential (primary) hypertension
[2023-06-26] MEDS ORDERED: THIAMINE 200 MG/2 ML INJ ONE ×2 (12:47→21:06)
[2023-06-26] MEDS: THIAMINE 200 MG/2 ML INJ IVP SCH ×2 (12:51→21:08)
[2023-06-26] MEDS ORDERED: ENOXAPARIN 40 MG/0.4 ML SQ ONE (17:28)
[2023-06-26] MEDS: AA 5%/D20W/ELECTROLYTES-TPN 2,000 ML, Lipids 20% 250 ML with MULTIVITAMINS INJ 10 ML IV SCH ×3 (17:38)
[2023-06-26] MEDS: ENOXAPARIN 40 MG/0.4 ML SQ SCH (17:38)
[2023-06-27] MEDS: DEXMEDETOMIDINE HCL 1,000 MCG in NA CHLORIDE 0.9% 490 ML IV SCH (02:47)
[2023-06-27] MEDS ORDERED: MIDAZOLAM 10 MG/5 ML ORAL SYR ONE ×4 (02:49→23:03)
[2023-06-27] MEDS: MIDAZOLAM 10 MG/5 ML ORAL SYR PO PRN ×4 (02:50→23:04)
--- NOTE | 2023-06-27 07:39 | P.PN ---
Date of Service: 06/27/23 Subjective: Remains on precedex, fluctuating levels. Seems to need more in afternoon / overnight Patient removed ARMIN drain yesterday - Dr. Foster notified denies any new / worsening symptoms ambulated around [place] yesterday with assistance and RW afebrile ROS: 10 point ROS as noted above, otherwise negative Physical Exam: GEN: Awake, oriented x2, NAD HEENT: Normal conjunctiva, sclera anicteric CV: Regular rate and rhythm, no edema Pulm: diminished at bases bilaterally, clear bilaterally; nonlabored ABD: Soft, nondistended, nontender Neuro: No focal motor deficit. 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 S/P repair 05/05 Acute blood loss anemia secondary to upper GI bleed Hypovolemic shock secondary to GI bleed Acute hypoxic respiratory failure/acute lung injury s/p Tracheostomy 06/04/23 UTI, MDR Pseudomonas Aeruginosa Acetaminophen toxicity, resolved JERI secondary to acute blood loss anemia, hypotension/prerenal state; resolved Hypoglycemia Malnutrition/hypoalbuminemia Anasarca, improved Bipolar disorder/depression/anxiety Seizures/metabolic encephalopathy/Hypoxic encephalopathy 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 (05/05) Dr. Foster discussed with bariatric surgeons - not much options, need to wait many months before would attempt any further intra-abdominal procedures Patient pulled out ARMIN drain yesterday afternoon (06/26); Dr Foster notified Monitor for aspiration, Continue TPN at the current rate. Total 12 units PRBC transfused. s/p protonix drip; Patient has had at least 6 weeks of PPI Hemoglobin has been stable. On fentanyl patch for pain. Acute hypoxic respiratory failure/acute lung injury s/p Tracheostomy 06/04/23 Patient extubated to oxygen by nasal cannula 05/21. Had to be re-intubated overnight 05/29 for hypoxic respiratory failure CTA chest (05/30): No PE. RLL atelectasis, Mild bilateral pulmonary opacities, esophageal dilation Initial Sputum culture grew Pseudomonas and completed 2 week course of merrem, however sputum growing pseudomonas again, now resistant to merrem (06/02) ENT recommended cuffed tracheostomy to reduce risk of aspiration. s/p Tracheostomy 06/04/23. Weaned to trach collar and then transitioned to room air. She has been stable on room air. Patient reevaluated by ENT and tracheostomy changed to uncuffed trach. Dr. Anthony - pulm is following CXR (06/25): mild atelectasis in both lung bases. otherwise clear. UTI, MDR Pseudomonas Aeruginosa s/p Anti-Infective Agents Meropenem (05/06-05/24), (05/30-06/03) Vancomycin (05/06-05/16) (05/19-06/04) Micafungin (05/20-06/03) Cefepime (06/02-06/12) Off antibiotics since (06/12). Afebrile since (06/24) Acetaminophen toxicity, resolved Patient completed acetylcysteine IV infusion for APAP toxicity. Resolved. JERI secondary to acute blood loss anemia, hypotension/prerenal state; resolved Hypoglycemia Malnutrition/hypoalbuminemia JERI resolved. Nephrology is following. Continue TPN. Monitor and optimize electrolytes. Fingerstick glucose monitoring. Bipolar disorder/depression/anxiety Delirium Oral meds held given NPO status. Patient started on sublingual Zyprexa-Titrate On Sublingual Versed as needed encourage sitting by window - discussed with icu nurses 06/27 Seizures/metabolic encephalopathy/Hypoxic encephalopathy Seizures likely metabolic related per Dr. Cameron. Given IV keppra (05/24-06/23) to cover for possible seizure given no EEG to eval. No further seizures. Discussed with Dr. Cameron, dc'd 06/23 after 1 month trial Continue sublingual Versed as needed for agitation. remains on precedex drip. wean as tolerated VTE: Lovenox Code: Full Dispo: Social service is exploring disposition to SNF. needs to be off precedex
[2023-06-27] MEDS ORDERED: THIAMINE 200 MG/2 ML INJ ONE ×2 (08:06→19:46)
[2023-06-27] MEDS: THIAMINE 200 MG/2 ML INJ IVP SCH ×2 (08:09→20:24)
[2023-06-27] MEDS: OLANZAPINE 5 MG PO SCH (08:09)
[2023-06-27] MEDS: MUPIROCIN 2% OINT 22GM TUBE TOP SCH (08:09)
--- NOTE | 2023-06-27 09:36 | P.PN ---
Date of Service: 06/27/23 Chief Complaint: Respiratory failure Subjective: Per report, patient removed one of her ARMIN drains yesterday. In no apparent distress. Sitting up in bed. Mother at bedside. Trach cannula removed this morning. Physical Examination Temp Pulse Resp BP Pulse Ox 97.7 F 53 19 108/54 L 100 06/27/23 07:00 06/27/23 08:00 06/27/23 08:00 06/27/23 08:00 06/27/23 08:00 General: Awake. In no apparent distress. Oriented x2. intermittent confusion. HEENT: Atraumatic, Normocephalic. Tracheostomy. Respiratory: Trach. unlabored respirations. Cardiovascular: Regular rate and rhythm. No edema. Gastrointestinal: Abdominal surgical incision site. Non-distended. Integumentary: Abdominal surgical site dressing is clean dry and intact ARMIN drains x2. MSK: moves all extremities. Generalized weakness. Laboratory Data - Reviewed Microbiology Data - Reviewed Imagings Data: - CT abdomen pelvis 05/18: ": Bibasilar lung consolidations are present posteriorly which may represent infiltrate or atelectasis. There is no evidence of intra- abdominal or intrapelvic abscess collection. Small moderate left inguinal hernia containing nonobstructed small bowel." - XR Chest 05/23: "Patchy bibasilar opacities, left greater than right (atelectasis and/or infiltrate)." - CT head spine wo contrast 05/23: "No acute intracranial or extra-axial abnormality. No acute cervical spine injury." - XR Chest 05/29: "The lungs are grossly clear. The heart is normal in size. No displaced fractures.Left-sided venous catheter has tip in the SVC. Enteric tube descends into the upper abdomen." - XR KUB 05/29: "Tip of the enteric tube is in the stomach. Skin tory are noted along the midline. Several drainage catheters are seen. Mildly prominent central small bowel loops identified." - CTA Chest 05/30: " Negative for a pulmonary embolism. Right lower lobe atelectasis. Mild bilateral pulmonary opacities may represent mild interstitial pulmonary edema. Esophageal dilatation" - CT abdomen pelvis w contrast 05/30: ": 4 centimeter subcapsular splenic hematoma mildly diminished in size. No acute abnormality is displayed" - XR Chest 06/25: "Portable technique limits examination quality. Mild atelectasis is present in both lung bases. The lungs are otherwise clear. Tracheostomy tube is in place in expected positioning. Right-sided PICC line has tip in the SVC. The heart is normal in size." Medications List: Reviewed Assessment and plan Problem List Gastric pouch perforation/rupture s/p repair on 05/05 Acute blood loss anemia secondary to gastric pouch perforation Acute Hypoxic Respiratory Failure Acute Kidney Injury Acetaminophen Toxicity Bipolar disorder Depression Anxiety Gastric Pouch Perforation/Rupture/Bleeding - History of laura-en-Y bypass - Underwent emergent exploratory laparotomy with findings of acute abdominal pneumoperitoneum, hemoperitoneum, gastric pouch perforation/rupture/bleeding --> small bowel laura limb repair, repair of gastric pouch rupture with bleeding control, extensive lysys of adhesions, jejunostomy, evacuation of hemoperitoneum performed by Dr. Foster on 05/05. - Blood cultures 05/05: No growth to date - Repeat blood culture 05/11: No growth 24 hours - Urine culture 05/06: No growth to date - Completed 14 days Vancomycin and Meropenem - Completed 14 days Micafungin Acute Hypoxic Respiratory Failure - Resolved - pulmonology following - sputum culture 05/11: Pseudomonoas aeruginosa - Treated with Meropenem IV. - 05/29: patient became hypoxic, hypotensive and tachycardic and was subsequently intubated. - Sputum culture 05/31: Pseudomonoas aeruginosa - Completed 10 days Cefepime 06/02-06/12 - Tracheostomy placed on 06/03 Catheter-Associated Urinary Tract Infection - Resolved - Urine culture 05/30: Pseudomonoas aeruginosa. resistant to meropenem. - Completed 10 days Cefepime (06/02-06/12) Anti-Infective Agents - Cefepime (06/02-06/12) - Vancomycin (05/06-05/16) (05/19-06/04) - Micafungin (05/20-06/03) - Meropenem (05/06-05/24), (05/30-06/03) Recommendations Off antibiotics since 06/13. Afebrile. Leukocytosis resolved. Continue to monitor for s/s of infection along with WBC and fever trends. Monitor tracheostomy site. - Surgical site care per surgery team - Pressure offloading measures:Turn patient q2h, wedge pillow, low air-loss mattress. Apply barrier cream to sacrum/buttocks - Seizure precautions - wean of sedation as tolerated. Pending SNF placement. Case discussed with Bam Kaye
--- NOTE | 2023-06-27 10:51 | PN ---
Date of Progress Note: 06/27/2023 Subjective: The patient was admitted to the hospital for perforated viscus and acute kidney injury. The patient had acute kidney injury secondary to cardiorenal. The patient was treated, recovered. The patient had to be n.p.o., dependent on TPN. Physical Examination: Vital Signs: Blood pressure 108/54, pulse of 53, afebrile. Chest: Clear to auscultation. Trach has been removed. Heart: S1, S2 regular. Abdomen: Soft, nontender. Extremities: No edema. Neurologic: Alert. No focality. Laboratory Data: Hemoglobin 8.7. Sodium 137, potassium 3.5, bicarb 21, BUN 20, creatinine 0.4, calc ium 8.6, phos 3.3, magnesium 1.6. Assessment And Plan: 1.Acute kidney injury secondary to prerenal, recovered. Normal volume. No need for diuresis. We w ill continue to monitor. 2.N.p.o., TPN dependent with hypokalemia, hypophosphatemia, and hypomagnesemia. Potassium slightly trending up on current regimen with the same on the magnesium. I am going to continue current TPN an d we will follow up. If potassium stays stable, the patient can continue on current regimen as a dis charge planning. 3.Hypertension, controlled optimal. 4.Perforated viscus. Continue current treatment. Follow up with Surgery. NATALIIA Voice ID: [id number] Report ID: [id number]
[2023-06-27] MEDS ORDERED: ENOXAPARIN 40 MG/0.4 ML SQ ONE (16:39)
[2023-06-27] MEDS: ENOXAPARIN 40 MG/0.4 ML SQ SCH (16:51)
[2023-06-27] MEDS: AMINO ACIDS 5 %/DEXTROSE 20 % 2,000 ML IV SCH (16:51)
[2023-06-28] MEDS: DEXMEDETOMIDINE HCL 1,000 MCG in NA CHLORIDE 0.9% 490 ML IV SCH (03:21)
[2023-06-28 04:52] LABS: Potassium 3.3 mEq/L (3.5-5.1)
[2023-06-28 04:59] LABS: Hematocrit 22.8 % (36.0-45.0); MCV 89.6 fL (80-100); Platelets 194 thou/uL (152-406); RBC Red Blood Cell Count 2.55 M/uL (3.86-4.86)
[2023-06-28 05:00] LABS: MPV 9.4 fL (7.6-11.3)
[2023-06-28] MEDS ORDERED: MIDAZOLAM 10 MG/5 ML ORAL SYR ONE ×3 (05:41→19:22)
[2023-06-28] MEDS: MIDAZOLAM 10 MG/5 ML ORAL SYR PO PRN ×3 (05:43→19:23)
[2023-06-28] MEDS: KCL 20 MEQ/100 mL IVPB 20 MEQ/100 ML BAG IV SCH ×2 (06:29→09:35)
[2023-06-28] MEDS: MUPIROCIN 2% OINT 22GM TUBE TOP SCH (09:36)
[2023-06-28] MEDS: OLANZAPINE 5 MG PO SCH (09:36)
[2023-06-28] MEDS ORDERED: THIAMINE 200 MG/2 ML INJ ONE ×2 (09:37→19:42)
[2023-06-28] MEDS: THIAMINE 200 MG/2 ML INJ IVP SCH ×2 (09:37→19:54)
--- NOTE | 2023-06-28 10:00 | P.PN ---
Date of Service: 06/28/23 Subjective: no significant changes overnight denies any new / worsening symptoms off versed for short peroid yesterday; had to be restarted d/t agitation Able to be wheeled around in wheelchair yesterday to get some sunlight afebrile ROS: 10 point ROS as noted above, otherwise negative Physical Exam: GEN: Awake, oriented x2, NAD HEENT: Normal conjunctiva, sclera anicteric CV: Regular rate and rhythm, no edema Pulm: diminished at bases bilaterally, clear bilaterally; nonlabored ABD: Soft, nondistended, nontender Neuro: No focal motor deficit. 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 S/P repair 05/05 Acute blood loss anemia secondary to upper GI bleed Hypovolemic shock secondary to GI bleed Acute hypoxic respiratory failure/acute lung injury s/p Tracheostomy 06/04/23 UTI, MDR Pseudomonas Aeruginosa Acetaminophen toxicity, resolved JERI secondary to acute blood loss anemia, hypotension/prerenal state; resolved Hypoglycemia Malnutrition/hypoalbuminemia Anasarca, improved Bipolar disorder/depression/anxiety Seizures/metabolic encephalopathy/Hypoxic encephalopathy 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 (05/05) Dr. Foster discussed with bariatric surgeons - not much options, need to wait many months before would attempt any further intra-abdominal procedures Patient pulled out ARMIN drain (06/26); Dr Foster notified Monitor for aspiration, Continue TPN at the current rate. Total 12 units PRBC transfused. s/p protonix drip; Patient has had at least 6 weeks of PPI On fentanyl patch for pain. hgb downtrending last ~48hrs slightly. no evidence/obvious bleed on exam / by report pt on lovenox dvt prophylaxis has been off ppi for some time, but no obvious gi bleed check anemia labs, restart protonix Acute hypoxic respiratory failure/acute lung injury s/p Tracheostomy 06/04/23; resolved Patient extubated to oxygen by nasal cannula 05/21. Had to be re-intubated overnight 05/29 for hypoxic respiratory failure CTA chest (05/30): No PE. RLL atelectasis, Mild bilateral pulmonary opacities, esophageal dilation Initial Sputum culture grew Pseudomonas and completed 2 week course of merrem, however sputum growing pseudomonas again, now resistant to merrem (06/02) ENT recommended cuffed tracheostomy to reduce risk of aspiration. s/p Tracheostomy 06/04/23. Weaned to trach collar and then transitioned to room air. She has been stable on room air. Patient reevaluated by ENT and tracheostomy changed to uncuffed trach. Dr. Gabrielle calvillo is following CXR (06/25): mild atelectasis in both lung bases. otherwise clear. UTI, MDR Pseudomonas Aeruginosa; resolved s/p Anti-Infective Agents Meropenem (05/06-05/24), (05/30-06/03) Vancomycin (05/06-05/16) (05/19-06/04) Micafungin (05/20-06/03) Cefepime (06/02-06/12) Off antibiotics since (06/12). Afebrile since (06/24) Acetaminophen toxicity, resolved Patient completed acetylcysteine IV infusion for APAP toxicity. Resolved. JERI secondary to acute blood loss anemia, hypotension/prerenal state; resolved Hypoglycemia Malnutrition/hypoalbuminemia JERI resolved. Nephrology is following. Continue TPN. Monitor and optimize electrolytes. Fingerstick glucose monitoring. Bipolar disorder/depression/anxiety Delirium Oral meds held given NPO status. Patient started on sublingual Zyprexa-Titrate On Sublingual Versed as needed off versed for short peroid 06/27; had to be restarted d/t agitation encourage sitting by window - Able to be wheeled around in wheelchair yesterday to get some sunlight (06/27) Seizures/metabolic encephalopathy/Hypoxic encephalopathy Seizures likely metabolic related per Dr. Cameron. Given IV keppra (05/24-06/23) to cover for possible seizure given no EEG to eval. No further seizures. Discussed with Dr. Cameron, dc'd 06/23 after 1 month trial Continue sublingual Versed as needed for agitation. remains on precedex drip. wean as tolerated VTE: Lovenox Code: Full Dispo: Social service is exploring disposition to SNF. needs to be off precedex
--- NOTE | 2023-06-28 15:11 | P.PN ---
Subjective Date of Service: 06/28/23 Chief Complaint: S/p tracheostomy with delirium Subjective: No new changes Physical Examination - Vital Signs Temperature: 97.5 F Blood Pressure: 117/72 Pulse: 57 Respirations: 22 Pulse Ox (%): 100 - Physical Exam General: Other (chronically ill-appearing) HEENT: Atraumatic, Normocephalic Neck: Supple Respiratory: Other (symmetric chest expansion) Cardiovascular: No rubs, No murmurs Gastrointestinal: Soft and benign, No rebound Musculoskeletal: No clubbing Integumentary: No warmth Neurological: Normal tone Urinary: Other (no bladder distention) External genitalia: Deferred Rectal: Deferred Assessment And Plan - Plan 1. Acute kidney injury secondary to poor perfusion ATN, toxic ATN. SCr improved to 0.5. On TPN. Monitor renal panel. 2. Hypokalemia, hypomagnesemia, hypophosphatemia. Lytes repletion prn. 3. Hypernatremia. Improved. IV hydration & TPN as above. 4. Gastric pouch perforation, status post surgery. Per Gen Surg service. 5. Anemia. pRBC transf prn for Hgb < 7.0. No indication for DAMON.
--- NOTE | 2023-06-28 15:26 | P.PN ---
Subjective Date of Service: 06/28/23 Chief Complaint: s/p gastric perforation Subjective: Improving Review of Systems General: Unremarkable Eyes: Unremarkable ENT: Unremarkable Respiratory: Other Physical Examination - Vital Signs Temperature: 97.5 F Blood Pressure: 117/72 Pulse: 57 Respirations: 22 Pulse Ox (%): 100 - Physical Exam General: Alert, In no apparent distress, Oriented x3, Cooperative, Confused (sontimes) HEENT: PERRLA, EOMI Neck: Supple Gastrointestinal: Normal bowel sounds, Soft and benign, No tenderness, No rebound, No guarding, Other (intact midline) Musculoskeletal: No erythema, No tenderness, No warmth Integumentary: No rashes, No breakdown, No erythema, No warmth, No cyanosis Neurological: Normal speech Assessment And Plan - Plan Disposition per hospital until gastric surgery to be done by bariatric Sx team Protronix DVT prophyl cont TPN. physical therapy
--- NOTE | 2023-06-28 16:19 | PN ---
Date of Progress Note: 06/27/2023 Subjective: The patient is seen and examined. The patient is ready to have the tracheostomy tube pu lled as it is causing some neck discomfort. She denies any bleeding or exudate and we have been able to keep the trach capped so that she can voice. There is no further concern for aspiration at this point. No other complaints today. Objective: Cuffless #8 tracheostomy tube is intact with [place] valve in place and the patient is awake, alert, and able to speak. We laid the patient supine and gently removed the trach collar and trach. Area was cleansed and then a Xeroform dressing and 4 x 4 gauze were placed over the stoma. The patient tolerated it well. Impression: Respiratory failure with suspected aspiration, status post tracheostomy tube with severa l tracheostomy tube changes. Plan: 1.The patient is no longer in danger of aspiration and she is tolerating TPN well. 2.Change the Xeroform dressing every other day until the stoma is completely closed. 3.We will follow as needed. ALAINA/JIMMIE Voice ID: [id number] Report ID: [id number]
[2023-06-28] MEDS ORDERED: ONDANSETRON 4 MG/2 ML VIAL ONE (16:42)
[2023-06-28] MEDS: ONDANSETRON 4 MG/2 ML VIAL IV PRN ×2 (16:47→23:52)
[2023-06-28] MEDS ORDERED: SODIUM CHLORIDE 0.9% 10ML INJ IV PRN (17:27)
[2023-06-28] MEDS ORDERED: PANTOPRAZOLE 40 MG INJ IVP SCH (18:00)
[2023-06-28] MEDS: AA 5%/D20W/ELECTROLYTES-TPN 2,000 ML, Lipids 20% 250 ML with MULTIVITAMINS INJ 10 ML IV SCH ×3 (18:13)
[2023-06-28] MEDS ORDERED: ENOXAPARIN 40 MG/0.4 ML SQ ONE (18:14)
--- NOTE | 2023-06-28 18:29 | RAD REPORT ---
EXAM DESCRIPTION: CT - Abdomen Pelvis W Contrast - 06/28/2023 6:06 pm CLINICAL HISTORY: Abdominal pain COMPARISON: May 2023 TECHNIQUE: Computed axial tomography of the abdomen pelvis was obtained. 100 cc Isovue-300 was admin istered intravenously. Oral contrast was not requested which limits evaluation of bowel and appendix All CT scans are performed using dose optimization technique as appropriate and may include automated exposure control or mA/KV adjustment according to patient size. FINDINGS: Gastric bypass. Two percutaneous drains present. No significant fluid collection. A trace amount of fluid adjacent to the liver. 16 millimeter low-density splenic lesion unchanged from April 2023. Liver, pancreas, adrenals and left kidney are unremarkable. Tiny right renal calculi. No hydronephrosis. Tiny right renal cyst. Hysterectomy. No adnexal mass. No evidence of diverticulitis IMPRESSION: No acute abnormality is displayed.
[2023-06-28] MEDS: ENOXAPARIN 40 MG/0.4 ML SQ SCH (18:36)
[2023-06-28] MEDS ORDERED: HYDROMORPHONE HCL 0.5 MG/0.5 ML INJ IV ONE (23:56)
[2023-06-29] MEDS ORDERED: MIDAZOLAM 10 MG/5 ML ORAL SYR ONE ×4 (01:34→21:11)
[2023-06-29] MEDS: MIDAZOLAM 10 MG/5 ML ORAL SYR PO PRN ×4 (01:36→21:13)
[2023-06-29] MEDS ORDERED: HYDRALAZINE HCL 20 MG/ML VIAL ONE ×2 (04:02→16:26)
[2023-06-29] MEDS: HYDRALAZINE HCL 20 MG/ML VIAL IV PRN ×2 (04:03→16:27)
[2023-06-29 04:36] LABS: Absolute Lymphocytes (CBC) 0.7 K/uL (0.7-4.9); Hematocrit 28.2 % (36.0-45.0); Lymphocytes % 10.2 % (15.3-44.8); MPV 9.2 fL (7.6-11.3); Platelets 241 thou/uL (152-406); RBC Red Blood Cell Count 3.17 M/uL (3.86-4.86)
[2023-06-29 04:59] LABS: Albumin 2.5 g/dL (3.4-5.0); Bilirubin Total 0.7 mg/dL (0.2-1.0); Magnesium 1.5 mg/dL (1.6-2.4); Potassium 3.3 mEq/L (3.5-5.1); Protein, Total 7.7 g/dL (6.4-8.2)
[2023-06-29] MEDS ORDERED: FENTANYL 25 MCG/PATCH TD ONE ×2 (07:16→07:40)
[2023-06-29] MEDS: FENTANYL 25 MCG/PATCH TD SCH (07:19)
--- NOTE | 2023-06-29 07:28 | P.PN ---
Date of Service: 06/29/23 Subjective: off precedex since ~noon yesterday restless all night long; +tremors more hypertensive, tachypneic in last 24 hours abdominal pain continues; +nauseous since yesterday. continues with intermittent dry heaving afebrile ROS: 10 point ROS as noted above, otherwise negative Physical Exam: GEN: Awake, oriented x2, NAD HEENT: Normal conjunctiva, sclera anicteric CV: Sinus tachycardia, no edema Pulm: diminished at bases bilaterally, clear bilaterally; tachypneic ABD: Soft, nondistended, nontender Neuro: No focal motor deficit. 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 S/P repair 05/05 Acute blood loss anemia secondary to upper GI bleed Hypovolemic shock secondary to GI bleed Bipolar disorder/depression/anxiety Delirium Seizures/metabolic encephalopathy/Hypoxic encephalopathy Acute hypoxic respiratory failure/acute lung injury s/p Tracheostomy 06/04/23; resolved UTI, MDR Pseudomonas Aeruginosa; resolved Acetaminophen toxicity, resolved JERI secondary to acute blood loss anemia, hypotension/prerenal state; resolved Hypoglycemia Malnutrition/hypoalbuminemia Hypertension 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 (05/05) Dr. Foster discussed with bariatric surgeons - not much options, need to wait many months before would attempt any further intra-abdominal procedures Patient pulled out ARMIN drain (06/26); Dr Foster notified Monitor for aspiration, Continue TPN at the current rate. Total 12 units PRBC transfused. s/p protonix drip; Patient has had at least 6 weeks of PPI restarted protonix 06/28 empirically when patient reported upper abdominal pain and hgb downtrening on 06/28, however repeat labs hgb was at previous levels pt on lovenox dvt prophylaxis CT abdomen (06/28) no acute abnormalities hgb 7.8 -> 9.6 -> 9.7 (06/29) without any transfusions Bipolar disorder/depression/anxiety Delirium Oral meds held given NPO status. Patient started on sublingual Zyprexa-Titrate encourage sitting by window - able to get wheeled around by wheelchair to get some sunlight (06/27) On Sublingual Versed as needed off versed for short peroid 06/27; had to be restarted d/t agitation 06/29 Increased fentanyl patch (06/29)due to abd pain (06/29) Patient noted to become more hypertensive, tachypneic in last ~24 hours. +more tremulous /anxious, hypertensive off precedex since ~noon (06/28). benzos / pain meds slowly being weaned down given timeframe, may be having a component of precedex withdrawal, unfortunately unable to give clonidine PO to potentially help patient was weaned off precedex; however was on precedex for quite some time increasing withdrawal risk; will discuss with Dr. Anthony CT abdomen (06/28) was negative. will increase pain meds Seizures/metabolic encephalopathy/Hypoxic encephalopathy Seizures likely metabolic related per Dr. Cameron. Given IV keppra (05/24-06/23) to cover for possible seizure given no EEG to eval. No further seizures. Discussed with Dr. Cameron, dc'd 06/23 after 1 month course Acute hypoxic respiratory failure/acute lung injury s/p Tracheostomy 06/04/23; resolved Patient extubated on 05/21. Re-intubated overnight 05/29 for hypoxic respiratory failure CTA chest (05/30): No PE. RLL atelectasis, Mild bilateral pulmonary opacities, esophageal dilation Initial Sputum culture: Pseudomonas -> completed 2 weeks of merrem, however sputum growing pseudomonas again, now resistant to merrem (06/02) CXR (06/25): mild atelectasis in both lung bases. otherwise clear. Pulm / ENT are following ENT recommended cuffed tracheostomy to reduce risk of aspiration. s/p Tracheostomy 06/04/23; trach removed 06/27/22. currently on room air Continue Xeroform dressing every other day until the stoma is completely closed per ENT UTI, MDR Pseudomonas Aeruginosa; resolved s/p Anti-Infective Agents Meropenem (05/06-05/24), (05/30-06/03) Vancomycin (05/06-05/16) (05/19-06/04) Micafungin (05/20-06/03) Cefepime (06/02-06/12) Off antibiotics since (06/12). Afebrile since (06/24) Acetaminophen toxicity, resolved Patient completed acetylcysteine IV infusion for APAP toxicity. Resolved. JERI secondary to acute blood loss anemia, hypotension/prerenal state; resolved Hypoglycemia Malnutrition/hypoalbuminemia JERI resolved. Nephrology is following. Continue TPN. Monitor and optimize electrolytes. Fingerstick glucose monitoring. VTE: Lovenox Code: Full Dispo: Social service is exploring disposition to SNF / LTAC. off precedex since ~noon (06/28)
[2023-06-29] MEDS ORDERED: PANTOPRAZOLE 40 MG INJ ONE (07:40)
[2023-06-29] MEDS ORDERED: HYDROMORPHONE HCL 0.5 MG/0.5 ML INJ ONE (07:40)
[2023-06-29] MEDS ORDERED: THIAMINE 200 MG/2 ML INJ ONE (07:40)
[2023-06-29] MEDS ORDERED: ONDANSETRON 4 MG/2 ML VIAL ONE ×2 (07:41→16:26)
[2023-06-29] MEDS: ONDANSETRON 4 MG/2 ML VIAL IV PRN ×2 (07:44→16:27)
[2023-06-29] MEDS: FENTANYL 25 MCG/PATCH TD ONE ×2 (07:44→08:00)
[2023-06-29] MEDS: OLANZAPINE 5 MG PO SCH (07:45)
[2023-06-29] MEDS: THIAMINE 200 MG/2 ML INJ IVP SCH (07:45)
[2023-06-29] MEDS: MUPIROCIN 2% OINT 22GM TUBE TOP SCH (07:48)
[2023-06-29] MEDS ORDERED: HYDROMORPHONE HCL 0.5 MG/0.5 ML INJ IV ONE (08:00)
[2023-06-29] MEDS ORDERED: PANTOPRAZOLE 40 MG INJ IVP SCH (09:00)
[2023-06-29] MEDS: Magnesium Sulfate 2gm IVPB 2 G/50 ML BAG IV ONE ×2 (09:29→10:00)
[2023-06-29] MEDS: KCL 20 MEQ/100 mL IVPB 20 MEQ/100 ML BAG IV SCH ×2 (09:29→10:53)
--- NOTE | 2023-06-29 10:27 | P.PN ---
Subjective Date of Service: 06/29/23 Chief Complaint: S/p tracheostomy with delirium Patient is doing much better today she is off the Precedex drip is on fentanyl patches alert responsive cooperative Review of Systems Unremarkable Physical Examination - Vital Signs Temperature: 97.5 F Blood Pressure: 151/70 Pulse: 91 Respirations: 16 Pulse Ox (%): 99 - Physical Exam General: Alert, Oriented x3 Respiratory: Clear to auscultation bilaterally Cardiovascular: No edema, Regular rate/rhythm Assessment And Plan - Current Problems (Diagnosis) (1) Delirium Current Visit: Yes Status: Acute Plan: Patient's condition is improving she is placed on a fentanyl patch off the Precedex otherwise no change labs all reviewed (2) Hypertension Current Visit: Yes Status: Acute Plan: Blood pressure is mildly elevated Qualifiers: Hypertension type: unspecified Qualified Code(s): I10 - Essential (primary) hypertension
--- NOTE | 2023-06-29 14:43 | PN ---
Date of Progress Note: 06/29/2023 Subjective: Patient was admitted with perforated viscus. Patient continued to be n.p.o. Patient is on TPN. Physical Examination: Vital Signs: Blood pressure 155/64, pulse of 76. Chest: Clear to auscultation. Heart: S1, S2. Regular. Abdomen: Soft, nontender. Extremities: No edema. Neuro: Alert. No focality. Laboratory Data: Hemoglobin 9.7. Sodium 135, potassium 3.3, bicarb 21, BUN 15, creatinine 0.5, calc ium 9.1. Phosphorus 4, magnesium of 1.5. Current Medications: The patient is on include: 1.TPN. 2.Lovenox. 3.Fentanyl. 4.Tylenol. Assessment And Plan: 1.Acute kidney injury secondary to toxic acute tubular necrosis, recovered, resolved. 2.N.p.o. secondary to perforated viscus. Continue TPN. We will replace electrolyte. 3.Hypertension, controlled, optimal. 4.Perforated viscus as by primary and surgery. NATALIIA Voice ID: [id number] Report ID: [id number]
[2023-06-29] MEDS ORDERED: POTASSIUM CL 40 MEQ in NA CHLORIDE 0.9% 500 ML IV SCH (15:00)
[2023-06-29] MEDS ORDERED: ENOXAPARIN 40 MG/0.4 ML SQ ONE (16:05)
[2023-06-29] MEDS: ENOXAPARIN 40 MG/0.4 ML SQ SCH (16:10)
[2023-06-29] MEDS: AMINO ACIDS 5 %/DEXTROSE 20 % 2,000 ML IV SCH (16:10)
[2023-06-29] MEDS ORDERED: CLONIDINE 0.1 MG/PATCH TD SCH (17:00)
[2023-06-29 20:50] LABS: Magnesium 1.7 mg/dL (1.6-2.4)
[2023-06-30] MEDS ORDERED: HYDRALAZINE HCL 20 MG/ML VIAL ONE (02:26)
[2023-06-30] MEDS: HYDRALAZINE HCL 20 MG/ML VIAL IV PRN (02:27)
[2023-06-30] MEDS ORDERED: MIDAZOLAM 10 MG/5 ML ORAL SYR ONE ×2 (02:55→19:48)
[2023-06-30] MEDS: MIDAZOLAM 10 MG/5 ML ORAL SYR PO PRN ×2 (02:56→19:49)
[2023-06-30 05:07] LABS: Hematocrit 28.5 % (36.0-45.0); MPV 9.4 fL (7.6-11.3); Platelets 292 thou/uL (152-406); RBC Red Blood Cell Count 3.21 M/uL (3.86-4.86)
[2023-06-30 05:24] LABS: Albumin 2.6 g/dL (3.4-5.0); Bilirubin Total 0.6 mg/dL (0.2-1.0); Magnesium 1.7 mg/dL (1.6-2.4); Potassium 3.5 mEq/L (3.5-5.1); Protein, Total 7.6 g/dL (6.4-8.2)
--- NOTE | 2023-06-30 07:12 | P.PN ---
Date of Service: 06/30/23 Subjective: no acute events overnight remains off precedex continues with tachycardia, htn tremor improved ROS: 10 point ROS as noted above, otherwise negative Physical Exam: GEN: Awake, oriented, NAD HEENT: Normal conjunctiva, sclera anicteric CV: Sinus tachycardia, no edema Pulm: diminished at bases bilaterally but clear ABD: Soft, nondistended, nontender Neuro: No focal motor deficit. 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 S/P repair 05/05 Acute blood loss anemia secondary to upper GI bleed Hypovolemic shock secondary to GI bleed Bipolar disorder/depression/anxiety Delirium Seizures/metabolic encephalopathy/Hypoxic encephalopathy Hypertension Acute hypoxic respiratory failure/acute lung injury s/p Tracheostomy 06/04/23; resolved UTI, MDR Pseudomonas Aeruginosa; resolved Acetaminophen toxicity, resolved JERI secondary to acute blood loss anemia, hypotension/prerenal state; resolved Hypoglycemia Malnutrition/hypoalbuminemia 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 (05/05) Dr. Foster discussed with bariatric surgeons - not much options, need to wait many months before would attempt any further intra-abdominal procedures Patient pulled out ARMIN drain (06/26); Dr Foster notified Monitor for aspiration, Continue TPN at the current rate. Total 12 units PRBC transfused. s/p protonix drip; Patient has had at least 6 weeks of PPI restarted protonix 06/28 empirically when patient reported upper abdominal pain and hgb downtrening on 06/28, however repeat labs hgb was at previous levels protonix dc'd 06/29 pt on lovenox dvt prophylaxis CT abdomen (06/28) no acute abnormalities hgb stable without any transfusions last 48 hours. Bipolar disorder/depression/anxiety Delirium Oral meds held given NPO status. Patient started on sublingual Zyprexa-Titrate encourage sitting by window - able to get wheeled around by wheelchair to get some sunlight (06/27) On Sublingual Versed as needed off versed for short peroid 06/27; had to be restarted d/t agitation (06/29) Increased fentanyl patch (06/29)due to abd pain (06/29) Patient noted to become more hypertensive, tachypneic in last ~24 hours. +more tremulous /anxious, hypertensive off precedex since ~noon (06/28). benzos / pain meds slowly being weaned down given timeframe, may be having a component of precedex withdrawal, (06/30) Clonidine patch added given can't give PO clonidine at this time patient was weaned off precedex; however was on precedex for quite some time increasing withdrawal risk clonidine patch added 06/30 AM Seizures/metabolic encephalopathy/Hypoxic encephalopathy Seizures likely metabolic related per Dr. Cameron. Given IV keppra (05/24-06/23) to cover for possible seizure given no EEG to eval. No further seizures. Discussed with Dr. Cameron, dc'd 06/23 after 1 month course Hypertension IV hydralazine PRN clonidine patch added 06/30 AM as noted above Acute hypoxic respiratory failure/acute lung injury s/p Tracheostomy 06/04/23; resolved Patient extubated on 05/21. Re-intubated overnight 05/29 for hypoxic respiratory failure CTA chest (05/30): No PE. RLL atelectasis, Mild bilateral pulmonary opacities, esophageal dilation Initial Sputum culture: Pseudomonas -> completed 2 weeks of merrem, however sputum growing pseudomonas again, now resistant to merrem (06/02) CXR (06/25): mild atelectasis in both lung bases. otherwise clear. Pulm / ENT are following ENT recommended cuffed tracheostomy to reduce risk of aspiration. s/p Tracheostomy 06/04/23 trach removed 06/27/22 by ENT. currently on room air Continue Xeroform dressing every other day until the stoma is completely closed per ENT UTI, MDR Pseudomonas Aeruginosa; resolved s/p Anti-Infective Agents Meropenem (05/06-05/24), (05/30-06/03) Vancomycin (05/06-05/16) (05/19-06/04) Micafungin (05/20-06/03) Cefepime (06/02-06/12) Off antibiotics since (06/12). Afebrile since (06/24) Acetaminophen toxicity, resolved Patient completed acetylcysteine IV infusion for APAP toxicity. Resolved. JERI secondary to acute blood loss anemia, hypotension/prerenal state; resolved Hypoglycemia Malnutrition/hypoalbuminemia JERI resolved. Nephrology is following. Continue TPN. Monitor and optimize electrolytes. Fingerstick glucose monitoring. VTE: Lovenox Code: Full Dispo: Social service is exploring disposition to SNF / LTAC. off precedex since ~noon (06/28)
[2023-06-30] MEDS ORDERED: CLONIDINE 0.1 MG/PATCH TD SCH (08:00)
[2023-06-30] MEDS: CLONIDINE 0.1 MG/PATCH TD SCH (08:48)
[2023-06-30] MEDS: OLANZAPINE 5 MG PO SCH (08:49)
[2023-06-30] MEDS ORDERED: KCL 20 MEQ/100 mL IVPB 20 MEQ/100 ML BAG IV SCH (11:00)
[2023-06-30] MEDS ORDERED: Magnesium Sulfate 2gm IVPB 2 G/50 ML BAG IV ONE (11:15)
--- NOTE | 2023-06-30 11:43 | PN ---
Date of Progress Note: 06/30/2023 Subjective: Patient was admitted with perforated viscus. Patient had acute kidney injury secondary to cardiorenal. Patient was diuresed, responded very well. Patient had depleted electrolyte. Patijuan francisco nt is n.p.o. because of the perforated viscus. Patient is on TPN. Physical Examination: Vital Signs: Blood pressure 132/81, pulse of 112. Chest: Clear to auscultation. Heart: S1, S2. Regular. Abdomen: Soft, nontender. Extremities: No edema. Neuro: Alert. No focality. Laboratory Data: Hemoglobin 9.9. Sodium 135, potassium 3.5, bicarb 22, BUN 15, creatinine 0.5, calc ium 9.2. Phosphorus 3, magnesium 1.7. Current Medications: The patient is on include: 1.Clonidine. 2.Tylenol. 3.Fentanyl. 4.Midazolam. 5.TPN. 6.Magnesium sulfate. 7.Hydromorphone. Assessment And Plan: 1.Acute kidney injury secondary to cardiorenal, recovered, resolved. I am going to continue p.r.n. Lasix as needed. 2.Hypertension, controlled, optimal. Continue current treatment. 3.Hypokalemia, hypomagnesemia. We will supplement. We will try to tank up her potassium. Then, we will maintain her on the TPN and we will follow up. 4.Perforated viscus, as by Surgery and primary. NATALIIA Voice ID: [id number] Report ID: [id number]
[2023-06-30] MEDS: POTASSIUM CL 40 MEQ in NA CHLORIDE 0.9% 500 ML IV SCH ×2 (13:31→18:26)
[2023-06-30] MEDS: MUPIROCIN 2% OINT 22GM TUBE TOP SCH (13:33)
[2023-06-30] MEDS: AMINO ACIDS 5 %/DEXTROSE 20 % 2,000 ML IV SCH (16:50)
[2023-06-30] MEDS: ENOXAPARIN 40 MG/0.4 ML SQ SCH (16:52)
[2023-07-01] MEDS ORDERED: MIDAZOLAM 10 MG/5 ML ORAL SYR ONE ×3 (02:19→21:23)
[2023-07-01] MEDS: MIDAZOLAM 10 MG/5 ML ORAL SYR PO PRN ×3 (02:21→21:26)
[2023-07-01 04:26] LABS: Absolute Lymphocytes (CBC) 1.3 K/uL (0.7-4.9); Hematocrit 27.4 % (36.0-45.0); Lymphocytes % 21.2 % (15.3-44.8); MCV 89.5 fL (80-100); MPV 8.8 fL (7.6-11.3); Platelets 309 thou/uL (152-406); RBC Red Blood Cell Count 3.06 M/uL (3.86-4.86)
[2023-07-01 04:42] LABS: Magnesium 1.7 mg/dL (1.6-2.4); Phosphorus 2.5 mg/dL (2.5-4.9); Potassium 4.2 mEq/L (3.5-5.1)
--- NOTE | 2023-07-01 09:23 | P.PN ---
Date of Service: 07/01/23 Chief Complaint: Respiratory failure Subjective: Patient sitting up on side of bed. In no apparent distress, breathing comfortably on room air. Denies any new or worsening complaints at this time. Physical Examination Temp Pulse Resp BP Pulse Ox 96.9 F 91 H 19 154/86 H 100 07/01/23 04:00 07/01/23 06:00 07/01/23 06:00 07/01/23 06:00 07/01/23 06:00 General: Awake. In no apparent distress. Oriented x3. HEENT: Atraumatic, Normocephalic. Respiratory: Trach. unlabored respirations. Cardiovascular: Regular rate and rhythm. No edema. Gastrointestinal: Abdominal surgical incision site. Non-distended. Integumentary: Abdominal surgical site dressing is clean dry and intact ARMIN drains x2. MSK: moves all extremities. Generalized weakness. Laboratory Data - Reviewed Microbiology Data - Reviewed Imagings Data: - CT abdomen pelvis 05/18: ": Bibasilar lung consolidations are present posteriorly which may represent infiltrate or atelectasis. There is no evidence of intra- abdominal or intrapelvic abscess collection. Small moderate left inguinal hernia containing nonobstructed small bowel." - XR Chest 05/23: "Patchy bibasilar opacities, left greater than right (atelectasis and/or infiltrate)." - CT head spine wo contrast 05/23: "No acute intracranial or extra-axial abnormality. No acute cervical spine injury." - XR Chest 05/29: "The lungs are grossly clear. The heart is normal in size. No displaced fractures.Left-sided venous catheter has tip in the SVC. Enteric tube descends into the upper abdomen." - XR KUB 05/29: "Tip of the enteric tube is in the stomach. Skin tory are noted along the midline. Several drainage catheters are seen. Mildly prominent central small bowel loops identified." - CTA Chest 05/30: " Negative for a pulmonary embolism. Right lower lobe atelectasis. Mild bilateral pulmonary opacities may represent mild interstitial pulmonary edema. Esophageal dilatation" - CT abdomen pelvis w contrast 05/30: ": 4 centimeter subcapsular splenic hematoma mildly diminished in size. No acute abnormality is displayed" - XR Chest 06/25: "Portable technique limits examination quality. Mild atelectasis is present in both lung bases. The lungs are otherwise clear. Tracheostomy tube is in place in expected positioning. Right-sided PICC line has tip in the SVC. The heart is normal in size." Medications List: Reviewed Assessment and plan Problem List Gastric pouch perforation/rupture s/p repair on 05/05 Acute blood loss anemia secondary to gastric pouch perforation Acute Hypoxic Respiratory Failure Acute Kidney Injury Acetaminophen Toxicity Bipolar disorder Depression Anxiety Gastric Pouch Perforation/Rupture/Bleeding - History of laura-en-Y bypass - Underwent emergent exploratory laparotomy with findings of acute abdominal pneumoperitoneum, hemoperitoneum, gastric pouch perforation/rupture/bleeding --> small bowel laura limb repair, repair of gastric pouch rupture with bleeding control, extensive lysys of adhesions, jejunostomy, evacuation of hemoperitoneum performed by Dr. Foster on 05/05. - Blood cultures 05/05: No growth to date - Repeat blood culture 05/11: No growth 24 hours - Urine culture 05/06: No growth to date - Completed 14 days Vancomycin and Meropenem - Completed 14 days Micafungin Acute Hypoxic Respiratory Failure - Resolved - pulmonology following - sputum culture 05/11: Pseudomonoas aeruginosa - Treated with Meropenem IV. - 05/29: patient became hypoxic, hypotensive and tachycardic and was subsequently intubated. - Sputum culture 05/31: Pseudomonoas aeruginosa - Completed 10 days Cefepime 06/02-06/12 - Tracheostomy placed on 06/03 Catheter-Associated Urinary Tract Infection - Resolved - Urine culture 05/30: Pseudomonoas aeruginosa. resistant to meropenem. - Completed 10 days Cefepime (06/02-06/12) Anti-Infective Agents - Cefepime (06/02-06/12) - Vancomycin (05/06-05/16) (05/19-06/04) - Micafungin (05/20-06/03) - Meropenem (05/06-05/24), (05/30-06/03) Recommendations Off antibiotics since 06/13. Doing well. No leukocytosis. afebrile. Pending SNF placement. Patient has been off precedex >48 hours. - Surgical site care per surgery team - Fall precautions Case discussed with Dr. Rouse, N.
[2023-07-01] MEDS: MUPIROCIN 2% OINT 22GM TUBE TOP SCH (09:28)
[2023-07-01] MEDS: OLANZAPINE 5 MG PO SCH (09:28)
--- NOTE | 2023-07-01 10:46 | P.PN ---
Date of Service: 07/01/23 Subjective: remains off precedex no acute events overnight Less agitated / more agreeable HR improved, in 70-90s afebrile ROS: 10 point ROS as noted above, otherwise negative Physical Exam: GEN: Awake, oriented, NAD HEENT: Normal conjunctiva, sclera anicteric CV: Sinus tachycardia, no edema Pulm: diminished at bases bilaterally but clear ABD: Soft, nondistended, nontender Neuro: No focal motor deficit. 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 S/P repair 05/05 Acute blood loss anemia secondary to upper GI bleed Hypovolemic shock secondary to GI bleed Bipolar disorder/depression/anxiety Delirium Seizures/metabolic encephalopathy/Hypoxic encephalopathy Hypertension Acute hypoxic respiratory failure/acute lung injury s/p Tracheostomy 06/04/23; resolved UTI, MDR Pseudomonas Aeruginosa; resolved Acetaminophen toxicity, resolved JERI secondary to acute blood loss anemia, hypotension/prerenal state; resolved Hypoglycemia Malnutrition/hypoalbuminemia 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 (05/05) Dr. Foster discussed with bariatric surgeons - not much options, need to wait many months before would attempt any further intra-abdominal procedures Patient pulled out ARMIN drain (06/26); Dr Foster notified Monitor for aspiration, Continue TPN at the current rate. Total 12 units PRBC transfused. s/p protonix drip; Patient has had at least 6 weeks of PPI restarted protonix 06/28 empirically when patient reported upper abdominal pain and hgb downtrening on 06/28, however repeat labs hgb was at previous levels protonix dc'd 06/29 pt on lovenox dvt prophylaxis CT abdomen (06/28) no acute abnormalities hgb stable without any transfusions last 48 hours. Bipolar disorder/depression/anxiety Delirium Oral meds held given NPO status. Patient started on sublingual Zyprexa-Titrate encourage sitting by window - able to get wheeled around by wheelchair to get some sunlight (06/27) On Sublingual Versed as needed off versed for short peroid 06/27; had to be restarted d/t agitation (06/29) Increased fentanyl patch (06/29)due to abd pain (06/29) Patient noted to become more hypertensive, tachypneic in last ~24 hours. +more tremulous /anxious, hypertensive off precedex since ~noon (06/28). benzos / pain meds slowly being weaned down patient was weaned off precedex; however was on precedex for quite some time increasing withdrawal risk clonidine patch added 06/30 AM tremors resolved Seizures/metabolic encephalopathy/Hypoxic encephalopathy Seizures likely metabolic per Dr. Cameron. Given IV keppra (05/24-06/23) to cover for possible seizure given no EEG to eval. No further seizures. Discussed with Dr. Cameron, dc'd 06/23 after 1 month course Hypertension clonidine patch added 06/30 AM as noted above Acute hypoxic respiratory failure/acute lung injury s/p Tracheostomy 06/04/23; resolved Patient extubated on 05/21. Re-intubated overnight 05/29 for hypoxic respiratory failure CTA chest (05/30): No PE. RLL atelectasis, Mild bilateral pulmonary opacities, esophageal dilation Initial Sputum culture: Pseudomonas -> completed 2 weeks of merrem, however sputum growing pseudomonas again, now resistant to merrem (06/02) CXR (06/25): mild atelectasis in both lung bases. otherwise clear. Pulm / ENT are following ENT recommended cuffed tracheostomy to reduce risk of aspiration. s/p Tracheostomy 06/04/23 trach removed 06/27/22 by ENT. currently on room air Continue Xeroform dressing every other day until the stoma is completely closed per ENT UTI, MDR Pseudomonas Aeruginosa; resolved s/p Anti-Infective Agents Meropenem (05/06-05/24), (05/30-06/03) Vancomycin (05/06-05/16) (05/19-06/04) Micafungin (05/20-06/03) Cefepime (06/02-06/12) Off antibiotics since (06/13). Afebrile since (06/24) Acetaminophen toxicity, resolved Patient completed acetylcysteine IV infusion for APAP toxicity. Resolved. JERI secondary to acute blood loss anemia, hypotension/prerenal state; resolved Hypoglycemia Malnutrition/hypoalbuminemia JERI resolved. Nephrology is following. Continue TPN. Monitor and optimize electrolytes. Fingerstick glucose monitoring. VTE: Lovenox Code: Full Dispo: Social service is exploring disposition to SNF / LTAC. off precedex since ~noon (06/28)
[2023-07-01] MEDS ORDERED: SODIUM ACETATE IV SCH ×6 (17:00)
[2023-07-01] MEDS ORDERED: LIPIDS 20% IV SCH ×6 (17:00)
[2023-07-01] MEDS ORDERED: [UNRECOGNIZED DRUG - OTHER] IV SCH ×6 (17:00)
[2023-07-01] MEDS ORDERED: AMINO ACIDS IV SCH ×6 (17:00)
[2023-07-01] MEDS ORDERED: DEXTROSE 20% IV SCH ×6 (17:00)
[2023-07-01] MEDS: ENOXAPARIN 40 MG/0.4 ML SQ SCH (18:10)
--- NOTE | 2023-07-01 23:37 | PN ---
Date of Progress Note: 07/01/2023 Chief Complaint: Acute kidney injury. Subjective: The patient was admitted for perforated viscus. The patient developed acute kidney inju ry secondary to cardiorenal syndrome and hypovolemia. The patient received diuretics for volume cont rol. Electrolytes are stable. The patient was on TPN. Review of Systems: Denies complaints. Physical Examination: Lungs: Clear to auscultation bilaterally. Heart: S1, S2. Abdomen: Soft. Extremities: Minimal peripheral edema. Impression And Plan: 1.Acute kidney injury secondary to cardiorenal syndrome and renal hypoperfusion due to sepsis. Acut e kidney injury resolved. The patient will continue diuretic as needed for volume control. 2.Hypertension, controlled, optimal. Continue current treatment. 3.Hypokalemia and hypomagnesemia, supplementation as needed. 4.Status post perforated viscus and surgery was performed. The patient is followed by Surgical team and Primary team. EB/MODL Voice ID: [id number] Report ID: [id number]
[2023-07-02 05:11] LABS: Absolute Lymphocytes (CBC) 1.5 K/uL (0.7-4.9); Hematocrit 28.9 % (36.0-45.0); Lymphocytes % 28.4 % (15.3-44.8); MPV 8.8 fL (7.6-11.3); Platelets 288 thou/uL (152-406); RBC Red Blood Cell Count 3.25 M/uL (3.86-4.86)
[2023-07-02 05:24] LABS: Albumin 2.4 g/dL (3.4-5.0); Bilirubin Total 0.5 mg/dL (0.2-1.0); Magnesium 1.9 mg/dL (1.6-2.4); Potassium 3.6 mEq/L (3.5-5.1)
[2023-07-02] MEDS: OLANZAPINE 5 MG PO SCH (09:00)
[2023-07-02] MEDS ORDERED: FENTANYL 50 MCG/PATCH TD ONE (09:21)
[2023-07-02] MEDS: FENTANYL 50 MCG/PATCH TD SCH (09:26)
[2023-07-02] MEDS: MUPIROCIN 2% OINT 22GM TUBE TOP SCH (09:27)
[2023-07-02] MEDS ORDERED: OLANZAPINE 5 MG PO ONE (10:00)
[2023-07-02] MEDS ORDERED: ONDANSETRON 4 MG (ODT) TAB PO PRN (14:36)
--- NOTE | 2023-07-02 14:42 | P.PN ---
Subjective Date of Service: 07/02/23 Chief Complaint: S/p tracheostomy with delirium Patient is awake and alert. Nurse staff reports some episodes of agitation this morning Patient complaint being agitated and attributed it to anxiety attack. Physical Examination - Vital Signs Temperature: 97.8 F Blood Pressure: 154/76 Pulse: 75 Respirations: 15 Pulse Ox (%): 100 Assessment And Plan - Plan Physical Exam: GEN: Awake, oriented, NAD HEENT: Normal conjunctiva, sclera anicteric CV: Regular rhythm, no edema Pulm: diminished at bases bilaterally, clear to auscultation bilaterally. ABD: Soft, nondistended, nontender Neuro: No focal motor deficit. 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 S/P repair 05/05 Acute blood loss anemia secondary to upper GI bleed Hypovolemic shock secondary to GI bleed Bipolar disorder/depression/anxiety Delirium Seizures/metabolic encephalopathy/Hypoxic encephalopathy Hypertension Acute hypoxic respiratory failure/acute lung injury s/p Tracheostomy 06/04/23; resolved UTI, MDR Pseudomonas Aeruginosa; resolved Acetaminophen toxicity, resolved JERI secondary to acute blood loss anemia, hypotension/prerenal state; resolved Hypoglycemia Malnutrition/hypoalbuminemia 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 (05/05) Dr. Foster discussed with bariatric surgeons - not much options, need to wait many months before would attempt any further intra-abdominal procedures Patient pulled out ARMIN drain (06/26); Dr Foster aware. No aspiration event Monitor for aspiration, Continue TPN at the current rate. Total 12 units PRBC transfused. s/p protonix drip; Patient has had at least 6 weeks of PPI restarted protonix 06/28 empirically when patient reported upper abdominal pain and hgb downtrening on 06/28, however repeat labs hgb was at previous levels protonix dc'd 06/29 pt on lovenox dvt prophylaxis CT abdomen (06/28) no acute abnormalities hgb stable without any transfusions last 48 hours. Bipolar disorder/depression/anxiety Delirium Oral meds held given NPO status. Patient started on sublingual Zyprexa-Titrate encourage sitting by window - able to get wheeled around by wheelchair to get some sunlight (06/27) On Sublingual Versed as needed off versed for short peroid 06/27; had to be restarted d/t agitation (06/29) Increased fentanyl patch (06/29)due to abd pain patient was weaned off precedex; however was on precedex for quite some time increasing withdrawal risk Placed on clonidine patch, tremors resolved. Olanzapine dose increased to 10 mg daily Seizures/metabolic encephalopathy/Hypoxic encephalopathy Seizures likely metabolic per Dr. Cameron. Given IV keppra (05/24-06/23) to cover for possible seizure given no EEG to eval. No further seizures. Discussed with Dr. Cameron, dc'd 06/23 after 1 month course. No further seizures after discontinuing Keppra. Hypertension clonidine patch added 06/30 AM as noted above Acute hypoxic respiratory failure/acute lung injury s/p Tracheostomy 06/04/23; resolved Patient extubated on 05/21. Re-intubated overnight 05/29 for hypoxic respiratory failure CTA chest (05/30): No PE. RLL atelectasis, Mild bilateral pulmonary opacities, esophageal dilation Initial Sputum culture: Pseudomonas -> completed 2 weeks of merrem, however sputum growing pseudomonas again, now resistant to merrem (06/02) CXR (06/25): mild atelectasis in both lung bases. otherwise clear. Pulm / ENT are following ENT recommended cuffed tracheostomy to reduce risk of aspiration. s/p Tracheostomy 06/04/23 trach removed 06/27/22 by ENT. currently on room air Continue Xeroform dressing every other day until the stoma is completely closed per ENT UTI, MDR Pseudomonas Aeruginosa; resolved s/p Anti-Infective Agents Meropenem (05/06-05/24), (05/30-06/03) Vancomycin (05/06-05/16) (05/19-06/04) Micafungin (05/20-06/03) Cefepime (06/02-06/12) Off antibiotics since (06/13). Afebrile since (06/24) Acetaminophen toxicity, resolved Patient completed acetylcysteine IV infusion for APAP toxicity. Resolved. JERI secondary to acute blood loss anemia, hypotension/prerenal state; resolved Hypoglycemia Malnutrition/hypoalbuminemia JERI resolved. Nephrology is following. Continue TPN. Monitor and optimize electrolytes. Fingerstick glucose monitoring. VTE: Lovenox Code: Full Dispo: Social service is exploring disposition to SNF / LTAC.
--- NOTE | 2023-07-02 15:01 | PN ---
Date of Progress Note: 07/02/2023 Subjective: Patient doing well. No event. Objective: Vital Signs: Blood pressure 154/76, pulse of 75. Chest: Clear to auscultation. Heart: S1, S2. Regular. Abdomen: Soft, nontender. Extremities: No edema. Neurologic: Alert. No focality. Laboratory Data: Hemoglobin of 10, sodium 135, potassium creatinine 0.5, BUN 24, calcium 9, magnesium 1.9. Current Medications: The patient is on include clonidine patch, hydralazine, midazolam, Tylenol. Assessment And Plan: 1.Acute kidney injury secondary to cardiorenal, recovered, resolved. No need for diuresis. 2.Hypertension, controlled, optimal. 3.Electrolyte depletion secondary to patient NPO. We will continue TPN. We will add potassium supp lement. NATALIIA Voice ID: [id number] Report ID: [id number]
[2023-07-02] MEDS: POTASSIUM CL 40 MEQ in NA CHLORIDE 0.9% 500 ML IV SCH ×2 (15:07→19:00)
[2023-07-02] MEDS ORDERED: SODIUM ACETATE IV SCH ×5 (17:00)
[2023-07-02] MEDS ORDERED: [UNRECOGNIZED DRUG - OTHER] IV SCH ×5 (17:00)
[2023-07-02] MEDS ORDERED: MAGNESIUM IV SCH ×5 (17:00)
[2023-07-02] MEDS ORDERED: AMINO ACIDS IV SCH ×5 (17:00)
[2023-07-02] MEDS ORDERED: DEXTROSE IV SCH ×5 (17:00)
[2023-07-02] MEDS: [UNRECOGNIZED DRUG - OTHER] IV SCH ×5 (17:27)
[2023-07-02] MEDS: DEXTROSE IV SCH ×5 (17:27)
[2023-07-02] MEDS: SODIUM ACETATE IV SCH ×5 (17:27)
[2023-07-02] MEDS: ENOXAPARIN 40 MG/0.4 ML SQ SCH (17:27)
[2023-07-02] MEDS: MAGNESIUM IV SCH ×5 (17:27)
[2023-07-02] MEDS: AMINO ACIDS IV SCH ×5 (17:27)
[2023-07-02] MEDS ORDERED: MIDAZOLAM 10 MG/5 ML ORAL SYR ONE (20:55)
[2023-07-02] MEDS: MIDAZOLAM 10 MG/5 ML ORAL SYR PO PRN (21:00)
[2023-07-02] MEDS ORDERED: DIPHENHYDRAMINE 50 MG/ML VIAL IV ONE (23:31)
[2023-07-02] MEDS ORDERED: DIPHENHYDRAMINE 50 MG/ML VIAL ONE (23:40)
[2023-07-03 04:28] VITALS: BMI 29.4
[2023-07-03] MEDS: OLANZAPINE 5 MG PO SCH (08:14)
[2023-07-03] MEDS: MUPIROCIN 2% OINT 22GM TUBE TOP SCH (08:15)
--- NOTE | 2023-07-03 12:28 | PN ---
Subjective: Patient was admitted to the hospital with acute kidney injury, anasarca secondary to car diorenal. Patient after diuresis recovered. Patient has perforated viscus. Objective: Vital Signs: Blood pressure 131/86, pulse of 81, afebrile. Chest: Clear to auscultation. Heart: S1, S2. Regular. Abdomen: Soft, nontender. Extremities: No edema. Neurologic: Alert. No focality. Laboratory Data: Hemoglobin of 10, sodium 135, potassium 3.6, bicarb 22, BUN 24, creatinine 0.5, crispin cium 9, phosphorus 3. Current Medications: The patient on, it includes: 1.Clonidine. 2.Hydralazine p.r.n. 3.Fentanyl. 4.Midazolam. Assessment And Plan: 1.Acute kidney injury secondary to cardiorenal, normal volume, stable. We will continue current emily atment. 2.Hypokalemia, hypomagnesemia. Continue TPN. 3.Perforated viscus. Continue supportive care. Continue TPN. NATALIIA Voice ID: [id number] Report ID: [id number]
--- NOTE | 2023-07-03 14:01 | P.PN ---
Subjective Date of Service: 07/03/23 Chief Complaint: S/p tracheostomy with delirium Patient is awake and alert. No new complaint. Physical Examination - Vital Signs Temperature: 97.2 F Blood Pressure: 131/86 Pulse: 81 Respirations: 18 Pulse Ox (%): 100 Assessment And Plan - Plan Physical Exam: GEN: Awake, oriented, NAD CV: Regular rhythm, no edema Pulm: diminished at bases bilaterally, clear to auscultation bilaterally. ABD: Soft, nondistended, nontender Neuro: No focal motor deficit. 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 S/P repair 05/05 Acute blood loss anemia secondary to upper GI bleed Hypovolemic shock secondary to GI bleed Bipolar disorder/depression/anxiety Delirium Seizures/metabolic encephalopathy/Hypoxic encephalopathy Hypertension Acute hypoxic respiratory failure/acute lung injury s/p Tracheostomy 06/04/23; resolved UTI, MDR Pseudomonas Aeruginosa; resolved Acetaminophen toxicity, resolved JERI secondary to acute blood loss anemia, hypotension/prerenal state; resolved Hypoglycemia Malnutrition/hypoalbuminemia 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 (05/05) Dr. Foster discussed with bariatric surgeons - not much options, need to wait many months before would attempt any further intra-abdominal procedures Patient pulled out ARMIN drain (06/26); Dr Foster aware. No aspiration event Monitor for aspiration, Continue TPN at the current rate. Total 12 units PRBC transfused. s/p protonix drip; Patient has had at least 6 weeks of PPI restarted protonix 06/28 empirically when patient reported upper abdominal pain and hgb downtrening on 06/28, however repeat labs hgb was at previous levels protonix dc'd 06/29 pt on lovenox dvt prophylaxis CT abdomen (06/28) no acute abnormalities hgb stable. Bipolar disorder/depression/anxiety Delirium Oral meds held given NPO status. Patient started on sublingual Zyprexa-Titrate encourage sitting by window - able to get wheeled around by wheelchair to get some sunlight (06/27) On Sublingual Versed as needed off versed for short peroid 06/27; had to be restarted d/t agitation (06/29) Increased fentanyl patch (06/29)due to abd pain patient was weaned off precedex; however was on precedex for quite some time increasing withdrawal risk Placed on clonidine patch, tremors resolved. Stable on olanzapine 10 mg daily Seizures/metabolic encephalopathy/Hypoxic encephalopathy Seizures likely metabolic per Dr. Cameron. Given IV keppra (05/24-06/23) to cover for possible seizure given no EEG to eval. No further seizures. Discussed with Dr. Cameron, dc'd 06/23 after 1 month course. No further seizures after discontinuing Keppra. Hypertension clonidine patch added 06/30 AM as noted above Acute hypoxic respiratory failure/acute lung injury s/p Tracheostomy 06/04/23; resolved Patient extubated on 05/21. Re-intubated overnight 05/29 for hypoxic respiratory failure CTA chest (05/30): No PE. RLL atelectasis, Mild bilateral pulmonary opacities, esophageal dilation Initial Sputum culture: Pseudomonas -> completed 2 weeks of merrem, however sputum growing pseudomonas again, now resistant to merrem (06/02) CXR (06/25): mild atelectasis in both lung bases. otherwise clear. Pulm / ENT are following ENT recommended cuffed tracheostomy to reduce risk of aspiration. s/p Tracheostomy 06/04/23 trach removed 06/27/22 by ENT. currently on room air Continue Xeroform dressing every other day until the stoma is completely closed per ENT UTI, MDR Pseudomonas Aeruginosa; resolved s/p Anti-Infective Agents Meropenem (05/06-05/24), (05/30-06/03) Vancomycin (05/06-05/16) (05/19-06/04) Micafungin (05/20-06/03) Cefepime (06/02-06/12) Off antibiotics since (06/13). Afebrile since (06/24) Acetaminophen toxicity, resolved Patient completed acetylcysteine IV infusion for APAP toxicity. Resolved. JERI secondary to acute blood loss anemia, hypotension/prerenal state; resolved Hypoglycemia Malnutrition/hypoalbuminemia JERI resolved. Nephrology is following. Continue TPN. Monitor and optimize electrolytes. Fingerstick glucose monitoring. VTE: Lovenox Code: Full Dispo: Social service is exploring disposition to SNF vs home with home health.
[2023-07-03] MEDS ORDERED: DEXTROSE 20% IV SCH ×6 (17:00)
[2023-07-03] MEDS ORDERED: [UNRECOGNIZED DRUG - OTHER] IV SCH ×6 (17:00)
[2023-07-03] MEDS ORDERED: LIPIDS 20% IV SCH ×6 (17:00)
[2023-07-03] MEDS ORDERED: AMINO ACIDS IV SCH ×6 (17:00)
[2023-07-03] MEDS ORDERED: SODIUM ACETATE IV SCH ×6 (17:00)
[2023-07-03] MEDS: ENOXAPARIN 40 MG/0.4 ML SQ SCH (17:08)
[2023-07-03] MEDS: MIDAZOLAM 10 MG/5 ML ORAL SYR PO PRN (18:19)
[2023-07-03] MEDS ORDERED: DIPHENHYDRAMINE 25 MG TAB/CAP PO PRN (21:40)
[2023-07-04] MEDS: HYDRALAZINE HCL 20 MG/ML VIAL IV PRN (04:17)
[2023-07-04 04:55] LABS: Absolute Lymphocytes (CBC) 1.3 K/uL (0.7-4.9); Hematocrit 26.6 % (36.0-45.0); Lymphocytes % 28.7 % (15.3-44.8); MCV 90.4 fL (80-100); Platelets 321 thou/uL (152-406); RBC Red Blood Cell Count 2.94 M/uL (3.86-4.86)
[2023-07-04 04:58] LABS: Potassium 4.1 mEq/L (3.5-5.1)
[2023-07-04] MEDS: MIDAZOLAM 10 MG/5 ML ORAL SYR PO PRN ×2 (06:09→18:15)
[2023-07-04] MEDS: MUPIROCIN 2% OINT 22GM TUBE TOP SCH (08:00)
[2023-07-04] MEDS: OLANZAPINE 5 MG PO SCH (08:53)
--- NOTE | 2023-07-04 09:11 | P.PN ---
Date of Service: 07/04/23 Chief Complaint: Respiratory failure Subjective: Improving. Physical Examination Temp Pulse Resp BP Pulse Ox 98.0 F 68 16 165/72 H 98 07/04/23 04:00 07/04/23 04:00 07/04/23 04:00 07/04/23 04:00 07/04/23 04:00 General: Awake. In no apparent distress. Intermittent confusion. HEENT: Atraumatic, Normocephalic. Oral mucosa moist, pink. Respiratory: Clear to auscultation bilaterally. Unlabored respirations on room air. Cardiovascular: Regular rate and rhythm. No edema. Gastrointestinal: Abdominal surgical incision site. Non-distended. Integumentary: Abdominal surgical site without surrounding erythema, edema or drainage. ARMIN drains x2 with minimal output. MSK: moves all extremities. Generalized weakness. Laboratory Data - Reviewed Microbiology Data - Reviewed Imagings Data: - CT abdomen pelvis 05/18: ": Bibasilar lung consolidations are present posteriorly which may represent infiltrate or atelectasis. There is no evidence of intra- abdominal or intrapelvic abscess collection. Small moderate left inguinal hernia containing nonobstructed small bowel." - XR Chest 05/23: "Patchy bibasilar opacities, left greater than right (atelecta sis and/or infiltrate)." - CT head spine wo contrast 05/23: "No acute intracranial or extra-axial abnormality. No acute cervical spine injury." - XR Chest 05/29: "The lungs are grossly clear. The heart is normal in size. No displaced fractures.Left-sided venous catheter has tip in the SVC. Enteric tube descends into the upper abdomen." - XR KUB 05/29: "Tip of the enteric tube is in the stomach. Skin tory are noted along the midline. Several drainage catheters are seen. Mildly prominent central small bowel loops identified." - CTA Chest 05/30: " Negative for a pulmonary embolism. Right lower lobe atelectasis. Mild bilateral pulmonary opacities may represent mild interstitial pulmonary edema. Esophageal dilatation" - CT abdomen pelvis w contrast 05/30: ": 4 centimeter subcapsular splenic h ematoma mildly diminished in size. No acute abnormality is displayed" - XR Chest 06/25: "Portable technique limits examination quality. Mild atelectasis is present in both lung bases. The lungs are otherwise clear. Tracheostomy tube is in place in expected positioning. Right-sided PICC line has tip in the SVC. The heart is normal in size." - CT abdomen pelvis 06/28: " No acute abnormality is displayed." Medications List: Acetaminophen (Acetaminophen 650mg/Rect Supp) 650 mg TX Q6H PRN PRN Reason: TEMP > 100' F Last Admin: 06/24/23 11:25 Dose: 650 mg Clonidine HCl (Clonidine 0.1 Mg/Patch) 0.1 mg TD EVERY 7TH DAY [facility] Last Admin: 06/30/23 08:48 Dose: 0.1 mg Diphenhydramine HCl (Diphenhydramine 50 Mg/Ml Vial) 25 mg IV BEDTIME PRN PRN Reason: ITCHING Enoxaparin Sodium (Enoxaparin 40 Mg/0.4 Ml) 40 mg SQ DAILY 5 PM [facility] Last Admin: 07/03/23 17:08 Dose: 40 mg Fentanyl (Fentanyl 50 Mcg/Patch) 50 mcg TD EVERY 3RD DAY [facility] Last Admin: 07/02/23 09:26 Dose: 50 mcg Hydralazine HCl (Hydralazine Hcl 20 Mg/Ml Vial) 10 mg IV Q6HP PRN PRN Reason: Goal to achieve SBP in comment Last Admin: 07/04/23 04:17 Dose: 10 mg Sodium Chloride (Sodium Chloride) 250 mls @ 0 mls/hr IV .Q0M BRIAN Dextrose (D10w 500 Ml Ivpb) 500 mls @ 0 mls/hr IV .Q0M [facility] Sodium Acetate 50 meq/Magnesium Sulfate 3 gm/Multivitamins 10 ml/ Potassium Acetate 80 meq/ AMINO ACIDS 5 %/DEXTROSE 20 % 2,081 mls @ 100 mls/hr IV [id number] [facility] Last Admin: 07/02/23 17:27 Dose: 2,081 mls Sodium Acetate 50 meq/Magnesium Sulfate 3 gm/Multivitamins 10 ml/ Potassium Acetate 80 meq/ AMINO ACIDS 5 %/DEXTROSE 20 %/ Fat Emulsion Intravenous 2,331 mls @ 100 mls/hr IV [id number] [facility] Last Admin: 07/03/23 17:08 Dose: 2,331 mls Midazolam HCl (Midazolam 10 Mg/5 Ml Oral Syr) 2.5 mg PO Q6HP PRN PRN Reason: DELERIUM - 1ST LINE Last Admin: 07/04/23 06:09 Dose: 2.5 mg Mupirocin (Mupirocin 2% Oint 22gm Tube) 1 appl TOP DAILY [facility] Last Admin: 07/04/23 08:00 Dose: 1 appl Olanzapine Odt 5 Mg (Tablet) 2 ea PO DAILY [facility] Last Admin: 07/04/23 08:53 Dose: 2 ea Ondansetron HCl (Ondansetron 4 Mg (Odt) Tab) 4 mg PO Q6HP PRN PRN Reason: NAUSEA / VOMITING Assessment and plan Problem List Gastric pouch perforation/rupture s/p repair on 05/05 Acute blood loss anemia secondary to gastric pouch perforation Acute Hypoxic Respiratory Failure Acute Kidney Injury Acetaminophen Toxicity Bipolar disorder Depression Anxiety Gastric Pouch Perforation/Rupture/Bleeding - History of laura-en-Y bypass - Underwent emergent exploratory laparotomy on 05/05 with findings of acute abdominal pneumoperitoneum, hemoperitoneum, gastric pouch perforation/rupture/bleeding --> procedures performed: small bowel laura limb repair, repair of gastric pouch rupture with bleeding control, extensive lysys of adhesions, jejunostomy, evacuation of hemoperitoneum - Blood cultures 05/05: No growth to date - Repeat blood culture 05/11: No growth 24 hours - Urine culture 05/06: No growth to date - Completed 14 days Vancomycin and Meropenem - Completed 14 days Micafungin - On 06/26, patient pulled out [address] abdomen pelvis without acute findings. Acute Hypoxic Respiratory Failure - Resolved - pulmonology following - sputum culture 05/11: Pseudomonoas aeruginosa - Treated with Meropenem IV. - 05/29: patient became hypoxic, hypotensive and tachycardic and was subsequently intubated. - Sputum culture 05/31: Pseudomonoas aeruginosa - Completed 10 days Cefepime 06/02-06/12 - Tracheostomy placed on 06/03. - Trach removed 06/27 Catheter-Associated Urinary Tract Infection - Resolved - Urine culture 05/30: Pseudomonoas aeruginosa. resistant to meropenem. - Completed 10 days Cefepime (06/02-06/12) Anti-Infective Agents - Cefepime (06/02-06/12) - Vancomycin (05/06-05/16), (05/19-06/04) - Micafungin (05/20-06/03) - Meropenem (05/06-05/24), (05/30-06/03) Recommendations Pending SNF placement. Off antibiotics since 06/13. Doing well. Afebrile. No leukocytosis. No indication for anti-infective agents at this time. Continue to monitor. TPN dependent. PICC line in place. - Surgical site care per surgery team - Fall precautions ID will sign off at this time. Please notify Thad Rouse MD and/or Juliana Riggs NP if change in status/concern for infection. Case discussed with Bam Kaye
[2023-07-04] MEDS ORDERED: LORazepam 2 MG/ML VIAL ONE (16:21)
[2023-07-04] MEDS ORDERED: levETIRAcetam 500 MG in NA CHLORIDE 0.9% 100 ML IV ONE ×2 (16:24→16:39)
[2023-07-04] MEDS: DEXTROSE IV SCH ×5 (16:36)
[2023-07-04] MEDS: [UNRECOGNIZED DRUG - OTHER] IV SCH ×5 (16:36)
[2023-07-04] MEDS: SODIUM ACETATE IV SCH ×5 (16:36)
[2023-07-04] MEDS: MAGNESIUM IV SCH ×5 (16:36)
[2023-07-04] MEDS: AMINO ACIDS IV SCH ×5 (16:36)
[2023-07-04] MEDS: ENOXAPARIN 40 MG/0.4 ML SQ SCH (16:42)
[2023-07-04 17:54] LABS: Magnesium 2.1 mg/dL (1.6-2.4)
[2023-07-04] MEDS ORDERED: LORazepam 2 MG/ML VIAL IV ONE (18:48)
--- NOTE | 2023-07-04 20:25 | PN ---
Date of Progress Note: 07/04/2023 Subjective: Patient was admitted to the hospital with perforated viscus. Patient had acute kidney i njury secondary to cardiorenal. Patient after diuresis recovered very well. The patient is feeling much better. Physical Examination: Vital Signs: Blood pressure 140/70, pulse of 86. Chest: Clear to auscultation. Heart: S1, S2. Regular. Abdomen: Soft, nontender. Extremities: No edema. Laboratory Data: Hemoglobin 9.2. Sodium 135, potassium 4.1, bicarb 27, BUN 26, creatinine 0.5, calc ium 9. Current Medications: The patient is on include: 1.TPN. 2.Clonidine. 3.Lovenox. 4.Keppra. 5.Fentanyl. Assessment And Plan: 1.Acute kidney injury secondary to cardiorenal. Normal volume. Keep holding any diuresis. 2.Hyponatremia, resolved. 3.Electrolyte depletion secondary to n.p.o. Continue TPN, currently normalized. 4.Perforated viscus as by primary. 5.Deconditioning. Continue physical therapy and occupational therapy. LISA/JIMMIE Voice ID: [id number] Report ID: [id number]
[2023-07-05] MEDS: levETIRAcetam 500 MG in NA CHLORIDE 0.9% 100 ML IV SCH ×2 (07:34→21:02)
[2023-07-05] MEDS: OLANZAPINE 5 MG PO SCH (07:35)
[2023-07-05] MEDS: FENTANYL 50 MCG/PATCH TD SCH (07:35)
[2023-07-05] MEDS: MUPIROCIN 2% OINT 22GM TUBE TOP SCH (07:35)
[2023-07-05 10:16] LABS: Absolute Lymphocytes (CBC) 0.6 K/uL (0.7-4.9); Hematocrit 26.8 % (36.0-45.0); Lymphocytes % 18.4 % (15.3-44.8); MCV 96.2 fL (80-100); MPV 8.3 fL (7.6-11.3); Platelets 239 thou/uL (152-406); RBC Red Blood Cell Count 2.79 M/uL (3.86-4.86)
[2023-07-05 12:42] LABS: Albumin 2.2 g/dL (3.4-5.0); Bilirubin Total 0.6 mg/dL (0.2-1.0); Potassium 4.2 mEq/L (3.5-5.1); Protein, Total 6.4 g/dL (6.4-8.2)
--- NOTE | 2023-07-05 14:55 | P.PN ---
Subjective Date of Service: 07/05/23 Chief Complaint: S/p tracheostomy with delirium Had a family meeting yesterday to discuss plan of care with the prospect of discharging home with TPN. 15 to 20 minutes later patient had a seizure episode and was given IV Ativan and placed on IV Keppra. She is more awake and interactive today though mildly confused. Physical Examination - Vital Signs Temperature: 98.6 F Blood Pressure: 126/80 Pulse: 108 Respirations: 17 Pulse Ox (%): 98 Assessment And Plan - Plan Physical Exam: GEN: Awake and interactive, NAD CV: Regular rhythm, no edema Pulm: diminished at bases bilaterally, clear to auscultation bilaterally. ABD: Soft, nondistended, nontender Neuro: No focal motor deficit. 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 S/P repair 05/05 Acute blood loss anemia secondary to upper GI bleed Hypovolemic shock secondary to GI bleed Bipolar disorder/depression/anxiety Delirium Seizures/metabolic encephalopathy/Hypoxic encephalopathy Hypertension Acute hypoxic respiratory failure/acute lung injury s/p Tracheostomy 06/04/23; resolved UTI, MDR Pseudomonas Aeruginosa; resolved Acetaminophen toxicity, resolved JERI secondary to acute blood loss anemia, hypotension/prerenal state; resolved Hypoglycemia Malnutrition/hypoalbuminemia 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 (05/05) Dr. Foster discussed with bariatric surgeons - not much options, need to wait many months before would attempt any further intra-abdominal procedures Patient pulled out ARMIN drain (06/26); Dr Foster aware. No aspiration event Monitor for aspiration, Continue TPN at the current rate. Total 12 units PRBC transfused. s/p protonix drip; Patient has had at least 6 weeks of PPI restarted protonix 06/28 empirically when patient reported upper abdominal pain and hgb downtrening on 06/28, however repeat labs hgb was at previous levels protonix dc'd 06/29 pt on lovenox dvt prophylaxis CT abdomen (06/28) no acute abnormalities hgb relatively stable. Bipolar disorder/depression/anxiety Delirium Oral meds held given NPO status. Patient started on sublingual Zyprexa-Titrate encourage sitting by window - able to get wheeled around by wheelchair to get some sunlight (06/27) On Sublingual Versed as needed off versed for short peroid 06/27; had to be restarted d/t agitation On fentanyl patch patient was weaned off precedex. Patient had tremors suspected to be related to withdrawal from Precedex drip and therefore placed on clonidine patch. tremors resolved. Stable on olanzapine 10 mg daily Seizures/metabolic encephalopathy/Hypoxic encephalopathy Seizures likely metabolic per Dr. Cameron. Given IV keppra (05/24-06/23) to cover for possible seizure given no EEG to eval. She had no seizures for a while. Dr. Cameron recommended to discontinue Keppra after 1 month of therapy. Patient had a seizure last night so IV Keppra restarted with a loading dose. Potential route of Keppra administration discussed with pharmacy and neurology. General consensus is a trial of Keppra suppository and monitor Keppra level. She has sublingual Versed as needed available for breakthrough seizures. Hypertension On clonidine patch. Acute hypoxic respiratory failure/acute lung injury s/p Tracheostomy 06/04/23; resolved Patient extubated on 05/21. Re-intubated overnight 05/29 for hypoxic respiratory failure CTA chest (05/30): No PE. RLL atelectasis, Mild bilateral pulmonary opacities, esophageal dilation Initial Sputum culture: Pseudomonas -> completed 2 weeks of merrem, however sputum growing pseudomonas again, now resistant to merrem (06/02) CXR (06/25): mild atelectasis in both lung bases. otherwise clear. Pulm / ENT are following ENT recommended cuffed tracheostomy to reduce risk of aspiration. s/p Tracheostomy 06/04/23 trach removed 06/27/22 by ENT. currently on room air Continue Xeroform dressing every other day until the stoma is completely closed per ENT UTI, MDR Pseudomonas Aeruginosa; resolved s/p Anti-Infective Agents Meropenem (05/06-05/24), (05/30-06/03) Vancomycin (05/06-05/16) (05/19-06/04) Micafungin (05/20-06/03) Cefepime (06/02-06/12) Off antibiotics since (06/13). Afebrile since (06/24) Acetaminophen toxicity, resolved Patient completed acetylcysteine IV infusion for APAP toxicity. Resolved. JERI secondary to acute blood loss anemia, hypotension/prerenal state; resolved Hypoglycemia Malnutrition/hypoalbuminemia JERI resolved. Nephrology is following. Continue TPN. Monitor and optimize electrolytes. Fingerstick glucose monitoring. VTE: Lovenox Code: Full Dispo: Social service is exploring disposition to home with home health.
--- NOTE | 2023-07-05 14:56 | P.PN ---
Subjective Date of Service: 07/05/23 Chief Complaint: S/p gastric rupture, Subjective: Ambulating, Improving Review of Systems General: Unremarkable Eyes: Unremarkable ENT: Unremarkable Respiratory: Unremarkable Gastrointestinal: Unremarkable Physical Examination - Vital Signs Temperature: 98.6 F Blood Pressure: 126/80 Pulse: 108 Respirations: 17 Pulse Ox (%): 98 - Physical Exam General: Alert, In no apparent distress, Oriented x3, Cooperative HEENT: Normocephalic, PERRLA, EOMI Neck: Supple Respiratory: Normal air movement Cardiovascular: No edema, Normal pulses Gastrointestinal: Normal bowel sounds, Soft and benign, Non-distended, No tenderness, No rebound, No guarding, Other (ARMIN clear minival incision healed) Integumentary: No rashes, No warmth, No cyanosis Neurological: Normal speech Assessment And Plan - Plan Disposition per hospital until gastric surgery to be done by bariatric Sx team Protronix DVT prophyl cont TPN. physical therapy ARMIN removed by me. Intact.
--- NOTE | 2023-07-05 15:39 | P.PN ---
Subjective Date of Service: 07/05/23 Chief Complaint: S/p gastric rupture, Subjective: Other (Bedbound.) Physical Examination - Vital Signs Temperature: 98.6 F Blood Pressure: 126/80 Pulse: 108 Respirations: 17 Pulse Ox (%): 98 - Physical Exam General: Other (chronically ill-appearing) HEENT: Atraumatic, Normocephalic Neck: Supple Respiratory: Other (symmetric chest expansion) Cardiovascular: No rubs, No murmurs Gastrointestinal: Soft and benign Musculoskeletal: No clubbing Integumentary: No warmth Neurological: Normal tone Urinary: Other (no bladder distention) External genitalia: Deferred Rectal: Deferred Assessment And Plan - Plan 1. Acute kidney injury secondary to poor perfusion ATN, toxic ATN. SCr improved to 0.5-0.6. On TPN. Monitor renal panel. 2. Hypokalemia, hypomagnesemia, hypophosphatemia. Lytes repletion prn. 3. Hypernatremia. Improved. IV hydration & TPN as above. 4. Gastric pouch perforation, status post surgery. Per Gen Surg service. 5. Anemia. pRBC transf prn for Hgb < 7.0. No indication for DAMON. 6. Deconditioning. Continue physical therapy and occupational therapy.
[2023-07-05] MEDS: ENOXAPARIN 40 MG/0.4 ML SQ SCH (16:54)
[2023-07-05] MEDS: LIPIDS 20% IV SCH ×6 (17:31)
[2023-07-05] MEDS: SODIUM ACETATE IV SCH ×6 (17:31)
[2023-07-05] MEDS: AMINO ACIDS IV SCH ×6 (17:31)
[2023-07-05] MEDS: [UNRECOGNIZED DRUG - OTHER] IV SCH ×6 (17:31)
[2023-07-05] MEDS: DEXTROSE 20% IV SCH ×6 (17:31)
[2023-07-05] MEDS: DIPHENHYDRAMINE 50 MG/ML VIAL IV PRN (21:02)
--- NOTE | 2023-07-06 02:03 | OP ---
Date of Procedure: 05/05/2023 Surgeon: Jimbo Foster MD Iron Caster: CLIF Quintero Preoperative Diagnoses: Acute abdominal pain, pneumoperitoneum, hemoperitoneum, hypotension, gastroi ntestinal bleed, gastric perforation. Postoperative Diagnoses: Acute abdominal pain, pneumoperitoneum, hemoperitoneum, hypotension, gastro intestinal bleed. Gastric pouch perforation, rupture, bleeding. Respiratory failure. Procedures: Emergent exploratory laparotomy, small bowel David-en-Y limb repair, repair of gastric po uch rupture with bleeding control, extensive lysis of adhesions, feeding jejunostomy, evacuation of h emoperitoneum. Estimated Blood Loss: Less than 150 cc . We found at least 300 cc of blood present. Anesthesia: General plus local. Drains: Nasogastric tube, urinary catheter, ARMIN drain, and jejunostomy. Findings: This patient comes with a GI bleed, found to have an uncontrolled GI bleed with hypotensio n. I was brought to the case once it was found the patient to have pneumoperitoneum. The patient marroquin s an upper endoscopy done recently, but they could not see any major bleeding happen as hematoma, as discussed with the GI doctor. On the evaluation laparotomy, we noticed the patient to have the gastr ic pouch from the David-en-Y rupture, probably 40% of it which was gone. The patient has the efferent loop coming from the gastric pouch, free-floating on its own, disconnected from that area. We have intraabdominal adhesions. Complications: None. Condition: Critical. Indication: This is a case of a 48-year-old patient who came with a GI bleed. Apparently, she has b een at [facility] twice for GI bleed. She had history of David-en-Y in the past. Her doctors are in [facility] n. She decided then to come to our institution, found to have GI bleed, taken this morning for upper endoscopy, but they only found hematomas. They were able to inject. I do not have a specific repor t already out yet. They could not see any active bleeding. Once they brought the patient back, they noticed the patient to have pneumoperitoneum. They call an emergent surgical consult. When I saw t he patient, she was intubated and sedated. Once again, found to have pneumoperitoneum and hemoperito neum. I do not have any family members at this moment present. I could not get any information from the patient. She is sedated and intubated. What we noticed was the patient to have hypotension and the possibility of a gastric perforation. GI bleeding may be coming from that area too. Apparently , I cannot get any information at this moment. She has some kind of bariatric surgery done in the [facility]. We discussed postop with the patient's , the history which is not clear. Anyway, we have to take the patient emergently. On the process of doing that, we already called the transfer center , and the transfer center connected me to a bariatric surgeon who was on-call. I discussed with him the findings, the possibility of a gastric perforation, the David-en-Y and we explained to the institu tion our limitations since David-en-Y and gastric surgeries are not done electively in this [facility]. Due to the patient's vital signs, they stated they cannot accept the transfer right now and in th at case I asked for guidance from bariatric surgeons and the possibilities, and he instructed me once again if we see that this is rupture, we have the possibilities of closing that rupture or over-sewi ng the defect with doing an omental patch. He asked me if possible not to use tory in that region and put the drains in that region. Once again, we explained to the family our limitations in doing this surgery. We did not do any gastric bypass and this obviously is more difficult to get even to t [facility] of complication of those. At this moment, the family does not know who is her bariatric kory geon. I in fact did not even know what kind of surgery she had. On that reason, with those limitati ons, then I have to take the patient because the patient was unstable at this moment to the OR. The benefits, alternatives, and risks of laparotomy with repair of possible gastric perforation and contr ol of bleeding fully explained to the patient's which included, but not limited to, infection , bleeding, damage to adjacent structures, anesthesia complication, [place], even . They also unders tand the limitations of this institution, but at the same time not taking into surgery may compromise her life, and they signed the consent. Procedure In Detail: The patient was brought to the operating room, placed in supine position. Anes thesia was induced without complication. Midline incision was made after time-out was called and aft er the area was prepped and draped in usual sterile fashion. When we made the midline incision, we n oticed a lot of adhesions on the area of the upper abdomen. With the help of LigaSure, we were able to take care of the adhesions and then with the help of retraction after profuse irrigation we remove d clots from the upper abdomen and we removed also gastric content. the area and I notice d that the limb coming from the gastric pouch was already disconnected and was free floating on the a bdomen in the left upper side. The stomach showed a large perforation present and there was some ble eding associated with it. The distal stomach seemed to be intact. We ran the entire bowel, includin g the David-en-Y limb and we saw the connection of those 2 down below and then basically we see the ri sk of small bowel and then ascending, transverse, descending colon was also visualized. After profus e irrigation, we proceeded to control the bleeding. We identified the liver, identified the spleen, preserved that. Identified also the edges of the stomach. Unfortunately, the edges were bleeding an d we were able to control the bleeding with the help of sutures. Then after that, I proceeded to ove rsew a limb of the David-en-Y. At this moment, it is not safe to be connected once again to the gastr ic pouch since having seen that delineation and see how much of that will survive, so the lesions wer e oversewn with double layers of sutures. This will drain directly into the distal bowel. The stoma ch then was oversewn and for that we used a combination of silk. Before that, we have an NG tube com ing through to the area of concern, so I was able to position the NG tube and secure that in place, t hat is draining the gastric pouch. We oversewn this with double layers and then after that, we place d omental patch over that region. We put 2 drains around the area around each side and another 1, so 3 drains total. We checked for bleeding. The NG tube does not show any bleeding at this moment. T he limb looked intact. The rest of the stomach looked intact. We did not see any bleeding at this m oment. We irrigated the area. There is no way that I could connect this, so we left that to be done . Now, we have a decision of trying to see a weakened feeder somehow to diminish the chance of TPN d ependency until this can be fixed by an expert on the gastric reconstruction, so I proceeded to put a feeding tube. We selected an area in the jejunum, we can put a feeding tube now. I did not want to put it in the stomach since there is a possibility that this David-en-Y may not be able to be placed once again, but they can bring the stomach up to the distal esophagus for connections, so I tried not to create any scars in that region, so we selected the jejunum past the David-en-Y and when we tunnel ed that and fit the feeding tube in and imbricated that area in the tunnel and then basically put it against the abdominal wall, once again on a tunnel and exiting through the abdomen. This was done un emma direct visualization. The balloon was inflated. Excellent flow. We made sure that we run the b owel to make sure it is not kinked. After that, profuse irrigation of the abdomen was done. Once ag ain, we checked the viability of our stitches on the gastric pouch and see the bowel viability. NG t ube does not show any active bleeding, and we did not see any active bleeding anywhere else. The are as of the lysis of adhesions were checked with no bleeding. At that moment, we secured the ARMIN drains . There were 3 of them. I then proceeded to close the abdomen with #2 nylon in a running fashion. Irrigated in the midline and leave it partial open with tory in between. This is to close by seco ndary intention. The ARMIN was connected to bulb suction. NG tube was secured in place to make sure it does not get pulled. Jejunostomy tube was secured in place to make sure with the help of a nylon. Sponge count and instrument counts were correct. The patient then sent to ICU in critical condition. We hope when the patient gets stable enough to be able to move her to a higher level of care, especially since she is going to need reconstruction in that region. In the meantime, we are t rying to resuscitate her. Medical doctors are at bedside trying to help us with that. HM/MODL Voice ID: [id number] Report ID: [id number]
[2023-07-06] MEDS: MUPIROCIN 2% OINT 22GM TUBE TOP SCH (08:25)
[2023-07-06] MEDS: OLANZAPINE 5 MG PO SCH (08:25)
[2023-07-06] MEDS: levETIRAcetam 500 MG in NA CHLORIDE 0.9% 100 ML IV SCH ×2 (08:25→19:47)
--- NOTE | 2023-07-06 12:17 | P.PN ---
Subjective Date of Service: 07/06/23 Chief Complaint: S/p gastric rupture, Subjective pt admitted with Respiratory failure upper GI bleeding/s/p perforation required surgery [place] No overnight events mild hyponatremia Cont TPN Physical exam General: AAOX3, NAD HEENT: Atraumatic, Normocephalic Neck: Supple, no elevated JVD , tracheostomy Respiratory: CTAB Cardiovascular: No rubs, No murmurs Gastrointestinal: sot, multiple drainage tubes, wound dressed Ext :no edema A/P # Acute kidney injury resolved Renal dose meds avoid NSAID #. Hypokalemia, hypomagnesemia, hypophosphatemia. Replete prn. #.Hyponatremia mild Cont TPN at current rate and sodium content #. Gastric pouch perforation, status post surgery. Surgery following Physical Examination - Vital Signs Temperature: 98.6 F Blood Pressure: 126/80 Pulse: 108 Respirations: 17 Pulse Ox (%): 98
--- NOTE | 2023-07-06 13:37 | P.PN ---
Subjective Date of Service: 07/06/23 Chief Complaint: S/p gastric rupture, Patient is awake and alert. She denies any complaint. No more seizures last 2 days. Physical Examination - Vital Signs Temperature: 98.6 F Blood Pressure: 126/80 Pulse: 108 Respirations: 17 Pulse Ox (%): 98 Assessment And Plan - Plan Physical Exam: GEN: Awake and interactive, NAD CV: Regular rhythm, no edema Pulm: diminished at bases bilaterally, clear to auscultation bilaterally. ABD: Soft, nondistended, nontender Neuro: No focal motor deficit. 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 S/P repair 05/05 Acute blood loss anemia secondary to upper GI bleed Hypovolemic shock secondary to GI bleed Bipolar disorder/depression/anxiety Delirium Seizures/metabolic encephalopathy/Hypoxic encephalopathy Hypertension Acute hypoxic respiratory failure/acute lung injury s/p Tracheostomy 06/04/23; resolved UTI, MDR Pseudomonas Aeruginosa; resolved Acetaminophen toxicity, resolved JERI secondary to acute blood loss anemia, hypotension/prerenal state; resolved Hypoglycemia Malnutrition/hypoalbuminemia 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 (05/05) Dr. Foster discussed with bariatric surgeons - not much options, need to wait many months before would attempt any further intra-abdominal procedures Patient pulled out ARMIN drain (06/26). No aspiration event Monitor for aspiration, Continue TPN at the current rate. Total 12 units PRBC transfused. s/p protonix drip; Patient has had at least 6 weeks of PPI restarted protonix 06/28 empirically when patient reported upper abdominal pain and hgb downtrening on 06/28, however repeat labs hgb was at previous levels protonix dc'd 06/29 pt on lovenox dvt prophylaxis CT abdomen (06/28) no acute abnormalities hgb relatively stable. Bipolar disorder/depression/anxiety Delirium Oral meds held given NPO status. Patient started on sublingual Zyprexa-Titrate encourage sitting by window - able to get wheeled around by wheelchair to get some sunlight (06/27) On Sublingual Versed as needed off versed for short peroid 06/27; had to be restarted d/t agitation On fentanyl patch patient weaned off precedex. Patient had tremors suspected to be related to withdrawal from Precedex drip and therefore placed on clonidine patch. tremors resolved. Stable on olanzapine 10 mg daily Seizures/metabolic encephalopathy/Hypoxic encephalopathy Seizures likely metabolic per Dr. Cameron. Given IV keppra (05/24-06/23) to cover for possible seizure given no EEG to eval. She had no seizures for a while. Dr. Cameron recommended to discontinue Keppra after 1 month of therapy. Patient had a seizure 07/04/23 so IV Keppra restarted with a loading dose. Potential route of Keppra administration discussed with pharmacy and neurology. General consensus is a trial of Keppra suppository and monitor Keppra level. She has sublingual Versed as needed available for breakthrough seizures. Hypertension On clonidine patch. Acute hypoxic respiratory failure/acute lung injury s/p Tracheostomy 06/04/23; resolved Patient extubated on 05/21. Re-intubated overnight 05/29 for hypoxic respiratory failure CTA chest (05/30): No PE. RLL atelectasis, Mild bilateral pulmonary opacities, esophageal dilation Initial Sputum culture: Pseudomonas -> completed 2 weeks of merrem, however sputum growing pseudomonas again, now resistant to merrem (06/02) CXR (06/25): mild atelectasis in both lung bases. otherwise clear. Pulm / ENT are following ENT recommended cuffed tracheostomy to reduce risk of aspiration. s/p Tracheostomy 06/04/23 trach removed 06/27/22 by ENT. currently on room air Continue Xeroform dressing every other day until the stoma is completely closed per ENT UTI, MDR Pseudomonas Aeruginosa; resolved s/p Anti-Infective Agents Meropenem (05/06-05/24), (05/30-06/03) Vancomycin (05/06-05/16) (05/19-06/04) Micafungin (05/20-06/03) Cefepime (06/02-06/12) Off antibiotics since (06/13). Afebrile since (06/24) Acetaminophen toxicity, resolved Patient completed acetylcysteine IV infusion for APAP toxicity. Resolved. JERI secondary to acute blood loss anemia, hypotension/prerenal state; resolved Hypoglycemia Malnutrition/hypoalbuminemia JERI resolved. Nephrology is following. Continue TPN. Monitor and optimize electrolytes. Fingerstick glucose monitoring. VTE: Lovenox Code: Full Dispo: Social service is exploring disposition to home with home health.
[2023-07-06] MEDS: MAGNESIUM IV SCH ×5 (16:40)
[2023-07-06] MEDS: DEXTROSE IV SCH ×5 (16:40)
[2023-07-06] MEDS: [UNRECOGNIZED DRUG - OTHER] IV SCH ×5 (16:40)
[2023-07-06] MEDS: SODIUM ACETATE IV SCH ×5 (16:40)
[2023-07-06] MEDS: ENOXAPARIN 40 MG/0.4 ML SQ SCH (16:40)
[2023-07-06] MEDS: AMINO ACIDS IV SCH ×5 (16:40)
[2023-07-06] MEDS: DIPHENHYDRAMINE 50 MG/ML VIAL IV PRN (19:47)
[2023-07-07] MEDS ORDERED: LORazepam 2 MG/ML VIAL IV ONE (03:35)
[2023-07-07 06:23] LABS: Hematocrit 26.5 % (36.0-45.0); Lymphocytes % 27.4 % (15.3-44.8); MCV 88.9 fL (80-100); MPV 8.1 fL (7.6-11.3); Platelets 226 thou/uL (152-406); RBC Red Blood Cell Count 2.98 M/uL (3.86-4.86)
[2023-07-07 06:39] LABS: Potassium 3.8 mEq/L (3.5-5.1)
[2023-07-07] MEDS: levETIRAcetam 500 MG in NA CHLORIDE 0.9% 100 ML IV SCH ×2 (08:52→20:18)
[2023-07-07] MEDS: OLANZAPINE 5 MG PO SCH (08:53)
[2023-07-07] MEDS: CLONIDINE 0.1 MG/PATCH TD SCH (08:53)
--- NOTE | 2023-07-07 14:22 | P.PN ---
Subjective Date of Service: 07/07/23 Chief Complaint: S/p gastric rupture, Patient is awake and alert. She denies any complaint. No more seizures. Patient seen sitting in a wheelchair this morning. She informed me she had a shower. She has no new complaint. Physical Examination - Vital Signs Temperature: 97.4 F Blood Pressure: 147/76 Pulse: 80 Respirations: 16 Pulse Ox (%): 98 Assessment And Plan - Plan Physical Exam: GEN: Awake and interactive, NAD CV: Regular rhythm, no edema Pulm: diminished at bases bilaterally, clear to auscultation bilaterally. ABD: Soft, nondistended, nontender Neuro: No focal motor deficit. 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 S/P repair 05/05 Acute blood loss anemia secondary to upper GI bleed Hypovolemic shock secondary to GI bleed Bipolar disorder/depression/anxiety Delirium Seizures/metabolic encephalopathy/Hypoxic encephalopathy Hypertension Acute hypoxic respiratory failure/acute lung injury s/p Tracheostomy 06/04/23; resolved UTI, MDR Pseudomonas Aeruginosa; resolved Acetaminophen toxicity, resolved JERI secondary to acute blood loss anemia, hypotension/prerenal state; resolved Hypoglycemia Malnutrition/hypoalbuminemia 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 (05/05) Dr. Foster discussed with bariatric surgeons - not much options, need to wait many months before would attempt any further intra-abdominal procedures Patient pulled out ARMIN drain (06/26). No aspiration event Monitor for aspiration, Continue TPN at the current rate. Total 12 units PRBC transfused. s/p protonix drip; Patient has had at least 6 weeks of PPI restarted protonix 06/28 empirically when patient reported upper abdominal pain and hgb downtrening on 06/28, however repeat labs hgb was at previous levels protonix dc'd 06/29 pt on lovenox dvt prophylaxis CT abdomen (06/28) no acute abnormalities hgb relatively stable. Bipolar disorder/depression/anxiety Delirium Oral meds held given NPO status. Patient started on sublingual Zyprexa-Titrate encourage sitting by window - able to get wheeled around by wheelchair to get some sunlight (06/27) On Sublingual Versed as needed off versed for short peroid 06/27; had to be restarted d/t agitation On fentanyl patch patient weaned off precedex. Patient had tremors suspected to be related to withdrawal from Precedex drip and therefore placed on clonidine patch. tremors resolved. Stable on olanzapine 10 mg daily Seizures/metabolic encephalopathy/Hypoxic encephalopathy Seizures likely metabolic per Dr. Cameron. Given IV keppra (05/24-06/23) to cover for possible seizure given no EEG to eval. She had no seizures for a while. Dr. Cameron recommended to discontinue Keppra after 1 month of therapy. Patient had a seizure 07/04/23 so IV Keppra restarted with a loading dose. Potential route of Keppra administration discussed with pharmacy and neurology. General consensus is a trial of Keppra suppository and monitor Keppra level. She has sublingual Versed as needed available for breakthrough seizures. Pharmacy to procure Keppra suppository formulation for administration next week. Hypertension On clonidine patch. Acute hypoxic respiratory failure/acute lung injury s/p Tracheostomy 06/04/23; resolved Patient extubated on 05/21. Re-intubated overnight 05/29 for hypoxic respiratory failure CTA chest (05/30): No PE. RLL atelectasis, Mild bilateral pulmonary opacities, esophageal dilation Initial Sputum culture: Pseudomonas -> completed 2 weeks of merrem, however sputum growing pseudomonas again, now resistant to merrem (06/02) CXR (06/25): mild atelectasis in both lung bases. otherwise clear. Pulm / ENT are following ENT recommended cuffed tracheostomy to reduce risk of aspiration. s/p Tracheostomy 06/04/23 trach removed 06/27/22 by ENT. currently on room air Continue Xeroform dressing every other day until the stoma is completely closed per ENT UTI, MDR Pseudomonas Aeruginosa; resolved s/p Anti-Infective Agents Meropenem (05/06-05/24), (05/30-06/03) Vancomycin (05/06-05/16) (05/19-06/04) Micafungin (05/20-06/03) Cefepime (06/02-06/12) Off antibiotics since (06/13). Afebrile since (06/24) Acetaminophen toxicity, resolved Patient completed acetylcysteine IV infusion for APAP toxicity. Resolved. JERI secondary to acute blood loss anemia, hypotension/prerenal state; resolved Hypoglycemia Malnutrition/hypoalbuminemia JERI resolved. Nephrology is following. Continue TPN. Monitor and optimize electrolytes. Fingerstick glucose monitoring. VTE: Lovenox Code: Full Dispo: Social service is exploring disposition to home with home health.
[2023-07-07] MEDS: SODIUM ACETATE IV SCH ×5 (17:29)
[2023-07-07] MEDS: DEXTROSE IV SCH ×5 (17:29)
[2023-07-07] MEDS: MAGNESIUM IV SCH ×5 (17:29)
[2023-07-07] MEDS: AMINO ACIDS IV SCH ×5 (17:29)
[2023-07-07] MEDS: [UNRECOGNIZED DRUG - OTHER] IV SCH ×5 (17:29)
[2023-07-07] MEDS: ENOXAPARIN 40 MG/0.4 ML SQ SCH (17:29)
[2023-07-07] MEDS: HYDRALAZINE HCL 20 MG/ML VIAL IV PRN (20:18)
[2023-07-07] MEDS: DIPHENHYDRAMINE 50 MG/ML VIAL IV PRN (20:18)
[2023-07-08] MEDS: OLANZAPINE 5 MG PO SCH (09:00)
[2023-07-08] MEDS: FENTANYL 50 MCG/PATCH TD SCH (11:43)
[2023-07-08] MEDS: levETIRAcetam 500 MG in NA CHLORIDE 0.9% 100 ML IV SCH ×2 (11:44→21:00)
--- NOTE | 2023-07-08 17:26 | P.PN ---
Subjective Date of Service: 07/08/23 Chief Complaint: S/p gastric rupture, Patient is awake and alert. She denies any complaint. No more seizures. She was sitting in a wheelchair during my examination this morning. Physical Examination - Vital Signs Temperature: 97.8 F Blood Pressure: 155/83 Pulse: 73 Respirations: 16 Pulse Ox (%): 98 Assessment And Plan - Plan Physical Exam: GEN: Awake and interactive, NAD CV: Regular rhythm, no edema Pulm: diminished at bases bilaterally, clear to auscultation bilaterally. ABD: Soft, nondistended, nontender Neuro: No focal motor deficit. 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 S/P repair 05/05 Acute blood loss anemia secondary to upper GI bleed Hypovolemic shock secondary to GI bleed Bipolar disorder/depression/anxiety Delirium Seizures/metabolic encephalopathy/Hypoxic encephalopathy Hypertension Acute hypoxic respiratory failure/acute lung injury s/p Tracheostomy 06/04/23; resolved UTI, MDR Pseudomonas Aeruginosa; resolved Acetaminophen toxicity, resolved JERI secondary to acute blood loss anemia, hypotension/prerenal state; resolved Hypoglycemia Malnutrition/hypoalbuminemia 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 (05/05) Dr. Foster discussed with bariatric surgeons - not much options, need to wait many months before would attempt any further intra-abdominal procedures Patient pulled out ARMIN drain (06/26). No aspiration event Monitor for aspiration, Continue TPN at the current rate. Total 12 units PRBC transfused. s/p protonix drip; Patient has had at least 6 weeks of PPI restarted protonix 06/28 empirically when patient reported upper abdominal pain and hgb downtrening on 06/28, however repeat labs hgb was at previous levels protonix dc'd 06/29 pt on lovenox dvt prophylaxis CT abdomen (06/28) no acute abnormalities hgb relatively stable. Bipolar disorder/depression/anxiety Delirium Oral meds held given NPO status. Patient started on sublingual Zyprexa-Titrate encourage sitting by window - able to get wheeled around by wheelchair to get some sunlight (06/27) On Sublingual Versed as needed off versed for short peroid 06/27; had to be restarted d/t agitation On fentanyl patch patient weaned off precedex. Patient had tremors suspected to be related to withdrawal from Precedex drip and therefore placed on clonidine patch. tremors resolved. Stable on olanzapine 10 mg daily Seizures/metabolic encephalopathy/Hypoxic encephalopathy Seizures likely metabolic per Dr. Cameron. Given IV keppra (05/24-06/23) to cover for possible seizure given no EEG to eval. She had no seizures for a while. Dr. Cameron recommended to discontinue Keppra after 1 month of therapy. Patient had a seizure 07/04/23 so IV Keppra restarted with a loading dose. Potential route of Keppra administration discussed with pharmacy and neurology. General consensus is a trial of Keppra suppository and monitor Keppra level. She has sublingual Versed as needed available for breakthrough seizures. Pharmacy to procure Keppra suppository formulation for administration this week. Family need suppository, sublingual medications and TPN administration teaching before discharge. Hypertension On clonidine patch. Acute hypoxic respiratory failure/acute lung injury s/p Tracheostomy 06/04/23; resolved Patient extubated on 05/21. Re-intubated overnight 05/29 for hypoxic respiratory failure CTA chest (05/30): No PE. RLL atelectasis, Mild bilateral pulmonary opacities, esophageal dilation Initial Sputum culture: Pseudomonas -> completed 2 weeks of merrem, however sputum growing pseudomonas again, now resistant to merrem (06/02) CXR (06/25): mild atelectasis in both lung bases. otherwise clear. Pulm / ENT are following ENT recommended cuffed tracheostomy to reduce risk of aspiration. s/p Tracheostomy 06/04/23 trach removed 06/27/22 by ENT. currently on room air Continue Xeroform dressing every other day until the stoma is completely closed per ENT UTI, MDR Pseudomonas Aeruginosa; resolved s/p Anti-Infective Agents Meropenem (05/06-05/24), (05/30-06/03) Vancomycin (05/06-05/16) (05/19-06/04) Micafungin (05/20-06/03) Cefepime (06/02-06/12) Off antibiotics since (06/13). Afebrile since (06/24) Acetaminophen toxicity, resolved Patient completed acetylcysteine IV infusion for APAP toxicity. Resolved. JERI secondary to acute blood loss anemia, hypotension/prerenal state; resolved Hypoglycemia Malnutrition/hypoalbuminemia JERI resolved. Nephrology is following. Continue TPN. Monitor and optimize electrolytes. Fingerstick glucose monitoring. VTE: Lovenox Code: Full Dispo: Social service is exploring disposition to home with home health pending availability of Keppra suppositories.
[2023-07-08] MEDS: DEXTROSE 20% IV SCH ×6 (17:55)
[2023-07-08] MEDS: [UNRECOGNIZED DRUG - OTHER] IV SCH ×6 (17:55)
[2023-07-08] MEDS: LIPIDS 20% IV SCH ×6 (17:55)
[2023-07-08] MEDS: AMINO ACIDS IV SCH ×6 (17:55)
[2023-07-08] MEDS: SODIUM ACETATE IV SCH ×6 (17:55)
[2023-07-08] MEDS: ENOXAPARIN 40 MG/0.4 ML SQ SCH (17:56)
[2023-07-09] MEDS ORDERED: DIPHENHYDRAMINE 50 MG/ML VIAL IV ONE (06:24)
[2023-07-09 06:45] LABS: Absolute Lymphocytes (CBC) 0.7 K/uL (0.7-4.9); Hematocrit 26.3 % (36.0-45.0); Lymphocytes % 18.2 % (15.3-44.8); MCV 89.1 fL (80-100); MPV 8.7 fL (7.6-11.3); Platelets 246 thou/uL (152-406); RBC Red Blood Cell Count 2.95 M/uL (3.86-4.86)
[2023-07-09 06:51] LABS: Potassium 4.3 mEq/L (3.5-5.1)
[2023-07-09] MEDS: OLANZAPINE 5 MG PO SCH (09:00)
[2023-07-09] MEDS: levETIRAcetam 500 MG in NA CHLORIDE 0.9% 100 ML IV SCH ×2 (09:38→20:19)
--- NOTE | 2023-07-09 10:43 | P.PN ---
Date of Service: 07/09/23 Subjective: no acute events overnight no new/worsening symptoms feels better, wanting to go home ROS: 10 point ROS as noted above, otherwise negative Physical Exam: GEN: Awake, oriented, NAD HEENT: Normal conjunctiva, sclera anicteric CV: Sinus tachycardia, no edema Pulm: diminished at bases bilaterally but clear ABD: Soft, nondistended, nontender Neuro: No focal motor deficit. 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 S/P repair 05/05 Acute blood loss anemia secondary to upper GI bleed Hypovolemic shock secondary to GI bleed Seizures/metabolic encephalopathy/Hypoxic encephalopathy Bipolar disorder/depression/anxiety Delirium Hypertension Acute hypoxic respiratory failure/acute lung injury s/p Tracheostomy 06/04/23; resolved UTI, MDR Pseudomonas Aeruginosa; resolved Acetaminophen toxicity, resolved JERI secondary to acute blood loss anemia, hypotension/prerenal state; resolved Hypoglycemia Malnutrition/hypoalbuminemia 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 (05/05) Dr. Foster discussed with bariatric surgeons - not much options, need to wait many months before would attempt any further intra-abdominal procedures Patient pulled out ARMIN drain (06/26). Monitor for aspiration, Continue TPN at the current rate. Total 12 units PRBC transfused. s/p protonix drip; Patient has had at least 6 weeks of PPI hgb stable without any transfusions last 48 hours. Seizures/metabolic encephalopathy/Hypoxic encephalopathy Seizures likely metabolic per Dr. Cameron. Given IV keppra (05/24-06/23) to cover for possible seizure given no EEG to eval. She had no seizures for a while. Dr. Cameron recommended to discontinue Keppra after 1 month of therapy. Patient had a seizure 07/04/23 so IV Keppra restarted with a loading dose. Potential route of Keppra administration discussed with pharmacy and neurology. General consensus is a trial of Keppra suppository and monitor Keppra level. She has sublingual Versed as needed available for breakthrough seizures. Pharmacy to procure Keppra suppository formulation for administration this week. Family need suppository, sublingual medications and TPN administration teaching before discharge. Bipolar disorder/depression/anxiety Delirium Oral meds held given NPO status. Patient started on sublingual Zyprexa-Titrate encourage sitting by window On Sublingual Versed as needed off versed for short peroid 06/27; had to be restarted d/t agitation On fentanyl patch patient off precedex since 06/28. Patient had tremors suspected to be related to withdrawal from Precedex drip and therefore placed on clonidine patch. tremors resolved. Stable on olanzapine 10 mg daily Hypertension on clonidine patch; started 06/30 Acute hypoxic respiratory failure/acute lung injury s/p Tracheostomy 06/04/23; resolved Patient extubated on 05/21. Re-intubated overnight 05/29 for hypoxic respiratory failure CTA chest (05/30): No PE. RLL atelectasis, Mild bilateral pulmonary opacities, esophageal dilation Initial Sputum culture: Pseudomonas -> completed 2 weeks of merrem, however sputum growing pseudomonas again, now resistant to merrem (06/02) CXR (06/25): mild atelectasis in both lung bases. otherwise clear. Pulm / ENT are following ENT recommended cuffed tracheostomy to reduce risk of aspiration. s/p Tracheostomy 06/04/23 trach removed 06/27/22 by ENT. currently on room air Continue Xeroform dressing every other day until the stoma is completely closed per ENT UTI, MDR Pseudomonas Aeruginosa; resolved s/p Anti-Infective Agents Meropenem (05/06-05/24), (05/30-06/03) Vancomycin (05/06-05/16) (05/19-06/04) Micafungin (05/20-06/03) Cefepime (06/02-06/12) Off antibiotics since (06/13). Afebrile since (07/05) Acetaminophen toxicity, resolved Patient completed acetylcysteine IV infusion for APAP toxicity. Resolved. JERI secondary to acute blood loss anemia, hypotension/prerenal state; resolved Hypoglycemia Malnutrition/hypoalbuminemia JERI resolved. Nephrology is following. Continue TPN. Monitor and optimize electrolytes. Fingerstick glucose monitoring. VTE: Lovenox Code: Full Dispo: Home with HH. pending availability of Keppra suppositories.
--- NOTE | 2023-07-09 16:36 | P.PN ---
Subjective Date of Service: 07/09/23 Chief Complaint: S/p gastric rupture, Subjective pt admitted with Respiratory failure upper GI bleeding/s/p perforation required surgery [place] No overnight events mild hyponatremia Cont TPN Physical exam General: AAOX3, NAD HEENT: Atraumatic, Normocephalic Neck: Supple, no elevated JVD , tracheostomy Respiratory: CTAB Cardiovascular: No rubs, No murmurs Gastrointestinal: sot, multiple drainage tubes, wound dressed Ext :no edema A/P # Acute kidney injury resolved Renal dose meds avoid NSAID #. Hypokalemia, hypomagnesemia, hypophosphatemia. Replete prn. #.Hyponatremia mild Cont TPN at current rate and sodium content #. Gastric pouch perforation, status post surgery. Surgery following Physical Examination - Vital Signs Temperature: 98.4 F Blood Pressure: 162/75 Pulse: 98 Respirations: 18 Pulse Ox (%): 100
[2023-07-09] MEDS: [UNRECOGNIZED DRUG - OTHER] IV SCH ×5 (17:05)
[2023-07-09] MEDS: SODIUM ACETATE IV SCH ×5 (17:05)
[2023-07-09] MEDS: AMINO ACIDS IV SCH ×5 (17:05)
[2023-07-09] MEDS: ENOXAPARIN 40 MG/0.4 ML SQ SCH (17:05)
[2023-07-09] MEDS: DEXTROSE IV SCH ×5 (17:05)
[2023-07-09] MEDS: MIDAZOLAM 10 MG/5 ML ORAL SYR PO PRN ×2 (17:05→22:21)
[2023-07-09] MEDS: MAGNESIUM IV SCH ×5 (17:05)
[2023-07-09] MEDS ORDERED: LORazepam 2 MG/ML VIAL IV ONE (20:38)
[2023-07-09] MEDS ORDERED: ALTEPLASE 2 MG/VIAL IV ONE ×2 (21:00→22:04)
[2023-07-09] MEDS ORDERED: WATER FOR INJ,STERILE 10 ML ONE (22:20)
[2023-07-10] MEDS: levETIRAcetam 500 MG in NA CHLORIDE 0.9% 100 ML IV SCH ×2 (09:00→20:21)
[2023-07-10] MEDS: OLANZAPINE 5 MG PO SCH (09:01)
--- NOTE | 2023-07-10 10:52 | P.PN ---
Date of Service: 07/10/23 Subjective: Feeling better today ambulating around the floor today; working with PT discharge pending availability of Keppra suppositories. Needs to be compounded and delivered from [place] per nursing notes no acute events overnight ROS: 10 point ROS as noted above, otherwise negative Physical Exam: GEN: Awake, oriented, NAD HEENT: Normal conjunctiva, sclera anicteric CV: Sinus tachycardia, no edema Pulm: diminished at bases bilaterally but clear ABD: Soft, nondistended, nontender Neuro: No focal motor deficit. 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 S/P repair 05/05 Acute blood loss anemia secondary to upper GI bleed Hypovolemic shock secondary to GI bleed Seizures/metabolic encephalopathy/Hypoxic encephalopathy Bipolar disorder/depression/anxiety Delirium Hypertension Acute hypoxic respiratory failure/acute lung injury s/p Tracheostomy 06/04/23; resolved UTI, MDR Pseudomonas Aeruginosa; resolved Acetaminophen toxicity, resolved JERI secondary to acute blood loss anemia, hypotension/prerenal state; resolved Hypoglycemia Malnutrition/hypoalbuminemia 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 (05/05) Dr. Foster discussed with bariatric surgeons - not much options, need to wait many months before would attempt any further intra-abdominal procedures Patient pulled out ARMIN drain (06/26). Monitor for aspiration, Continue TPN at the current rate. Total 12 units PRBC transfused. s/p protonix drip; Patient has had at least 6 weeks of PPI hgb stable without any transfusions last 48 hours. Seizures/metabolic encephalopathy/Hypoxic encephalopathy Seizures likely metabolic per Dr. Cameron. Given IV keppra (05/24-06/23) to cover for possible seizure given no EEG to eval. She had no seizures for a while. Dr. Cameron recommended to discontinue Keppra after 1 month of therapy. Patient had a seizure 07/04/23 so IV Keppra restarted with a loading dose. Potential route of Keppra administration discussed with pharmacy and neurology. General consensus is a trial of Keppra suppository and monitor Keppra level. She has sublingual Versed as needed available for breakthrough seizures. Pharmacy to procure Keppra suppository formulation for administration this week. Family need suppository, sublingual medications and TPN administration teaching before discharge. Discharge pending availability of Keppra suppositories. Anticipate few days to ship / deliver from [place] Bipolar disorder/depression/anxiety Delirium Oral meds held given NPO status. Patient started on sublingual Zyprexa-Titrate encourage sitting by window On Sublingual Versed as needed off versed for short peroid 06/27; had to be restarted d/t agitation On fentanyl patch patient off precedex since 06/28. Patient had tremors suspected to be related to withdrawal from Precedex drip and therefore placed on clonidine patch. tremors resolved. Stable on olanzapine 10 mg daily Hypertension on clonidine patch; started 06/30 Acute hypoxic respiratory failure/acute lung injury s/p Tracheostomy 06/04/23; resolved Patient extubated on 05/21. Re-intubated overnight 05/29 for hypoxic respiratory failure CTA chest (05/30): No PE. RLL atelectasis, Mild bilateral pulmonary opacities, esophageal dilation Initial Sputum culture: Pseudomonas -> completed 2 weeks of merrem, however sputum growing pseudomonas again, now resistant to merrem (06/02) CXR (06/25): mild atelectasis in both lung bases. otherwise clear. Pulm / ENT are following ENT recommended cuffed tracheostomy to reduce risk of aspiration. s/p Tracheostomy 06/04/23 trach removed 06/27/22 by ENT. currently on room air Continue Xeroform dressing every other day until the stoma is completely closed per ENT UTI, MDR Pseudomonas Aeruginosa; resolved s/p Anti-Infective Agents Meropenem (05/06-05/24), (05/30-06/03) Vancomycin (05/06-05/16) (05/19-06/04) Micafungin (05/20-06/03) Cefepime (06/02-06/12) Off antibiotics since (06/13). Afebrile since (07/05) Acetaminophen toxicity, resolved Patient completed acetylcysteine IV infusion for APAP toxicity. Resolved. JERI secondary to acute blood loss anemia, hypotension/prerenal state; resolved Hypoglycemia Malnutrition/hypoalbuminemia JERI resolved. Nephrology is following. Continue TPN. Monitor and optimize electrolytes. Fingerstick glucose monitoring. VTE: Lovenox Code: Full Dispo: Home with . pending availability of Keppra suppositories. Anticipate few days to ship / deliver from [place]
--- NOTE | 2023-07-10 12:51 | PN ---
Date of Progress Note: 07/10/2023 Subjective: Patient was admitted with perforated viscus. The patient had acute kidney injury and an asarca. Patient responded to diuresis. Did not require any renal replacement therapy because of the perforated viscus. Patient NPO. Had depleted electrolyte, TPN dependent. Objective: Vital Signs: Blood pressure 123/62, pulse of 101, afebrile. Chest: Clear to auscultation. Heart: S1, S2. Regular. Abdomen: Soft, nontender. Extremities: No edema. Neurologic: Alert. No focality. Laboratory Data: Hemoglobin 9.1, sodium 134, potassium 4.3, bicarb 25, BUN 26, creatinine 0.5, calci um 8.7. Current Medications: The patient on, includes Lovenox, clonidine, fentanyl, midazolam, and TPN. Assessment And Plan: 1.Acute kidney injury secondary to cardiorenal, recovered, resolved. Normal volume. Keep holding d iuresis. 2.Hypokalemia, hypomagnesemia, hypophosphatemia, currently corrected. Continue current TPN. 3.Hypertension, controlled. 4.Perforated viscus, as by Surgery and Primary. LISA/JIMMIE Voice ID: [id number] Report ID: [id number]
[2023-07-10] MEDS: [UNRECOGNIZED DRUG - OTHER] IV SCH ×6 (17:26)
[2023-07-10] MEDS: AMINO ACIDS IV SCH ×6 (17:26)
[2023-07-10] MEDS: DEXTROSE 20% IV SCH ×6 (17:26)
[2023-07-10] MEDS: SODIUM ACETATE IV SCH ×6 (17:26)
[2023-07-10] MEDS: LIPIDS 20% IV SCH ×6 (17:26)
[2023-07-10] MEDS: ENOXAPARIN 40 MG/0.4 ML SQ SCH (17:27)
[2023-07-10] MEDS: MIDAZOLAM 10 MG/5 ML ORAL SYR PO PRN (17:50)
[2023-07-10] MEDS ORDERED: LORazepam 2 MG/ML VIAL IV ONE (19:33)
[2023-07-11] MEDS: FENTANYL 50 MCG/PATCH TD SCH (08:50)
[2023-07-11] MEDS: levETIRAcetam 500 MG in NA CHLORIDE 0.9% 100 ML IV SCH ×2 (08:51→20:22)
[2023-07-11] MEDS: OLANZAPINE 5 MG PO SCH (08:51)
--- NOTE | 2023-07-11 11:21 | PN ---
Date of Progress Note: 07/11/2023 Subjective: Patient was admitted to the hospital with perforated viscus. Patient had acute kidney i njury secondary to cardiorenal. After diuresis, kidney function has been improved. Patient's kidney function back to normalized. Patient did not require any renal replacement therapy. Patient is fee ling well. Physical Examination: Vital Signs: When I saw the patient, blood pressure was 130/60, pulse of 95. Chest: Clear to auscultation. Heart: S1, S2. Regular. Abdomen: Soft, nontender. Extremities: No edema. Neuro: Alert. No focality. Laboratory Data: Hemoglobin 9.1. Sodium 134, potassium 4.3, bicarb 25, BUN 26, creatinine 0.5, calc ium 8.7. Current Medications: The patient is on include: 1.Tylenol. 2.Fentanyl. 3.Keppra. 4.Lorazepam. 5.Clonidine patch. 6.Lovenox. Assessment And Plan: 1.Acute kidney injury secondary to cardiorenal, recovered, resolved. 2.Hypokalemia, hypomagnesemia, hypophosphatemia secondary to perforated viscus. N.p.o. Continue TPN. 3.Perforated viscus as by Surgery. LISA/JIMMIE Voice ID: [id number] Report ID: [id number]
--- NOTE | 2023-07-11 11:44 | P.PN ---
Date of Service: 07/11/23 Subjective: Worked with PT yesterday; slowly improving given ativan for anxiety yesterday evening Stable. no new / worsening problems DC pending availability of Keppra suppositories and fentanyl patch ./ weaning afebrile ROS: 10 point ROS as noted above, otherwise negative Physical Exam: GEN: Awake, oriented, NAD HEENT: Normal conjunctiva, sclera anicteric CV: Sinus tachycardia, no edema Pulm: diminished at bases bilaterally but clear ABD: Soft, nondistended, nontender Neuro: No focal motor deficit. 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 S/P repair 05/05 Acute blood loss anemia secondary to upper GI bleed Hypovolemic shock secondary to GI bleed Seizures/metabolic encephalopathy/Hypoxic encephalopathy Bipolar disorder/depression/anxiety Delirium Hypertension Acute hypoxic respiratory failure/acute lung injury s/p Tracheostomy 06/04/23; resolved UTI, MDR Pseudomonas Aeruginosa; resolved Acetaminophen toxicity, resolved JERI secondary to acute blood loss anemia, hypotension/prerenal state; resolved Hypoglycemia Malnutrition/hypoalbuminemia 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 (05/05) Dr. Foster discussed with bariatric surgeons - not much options, need to wait many months before would attempt any further intra-abdominal procedures Patient pulled out ARMIN drain (06/26). Monitor for aspiration, Continue TPN at the current rate. Total 12 units PRBC transfused. s/p protonix drip; Patient has had at least 6 weeks of PPI hgb stable Seizures/metabolic encephalopathy/Hypoxic encephalopathy Seizures likely metabolic per Dr. Cameron. Given IV keppra (05/24-06/23) to cover for possible seizure given no EEG to eval. She had no seizures for a while. Dr. Cameron recommended to discontinue Keppra after 1 month of therapy. Patient had a seizure 07/04/23 so IV Keppra restarted with a loading dose. Potential route of Keppra administration discussed with pharmacy and neurology. General consensus is a trial of Keppra suppository and monitor Keppra level. She has sublingual Versed as needed available for breakthrough seizures. Pharmacy to procure Keppra suppository formulation for administration this week. Family need suppository, sublingual medications and TPN administration teaching before discharge. Discharge pending availability of Keppra suppositories. Anticipate few days to ship / deliver from [place] wean opioids Bipolar disorder/depression/anxiety Delirium Oral meds held given NPO status. Patient started on sublingual Zyprexa-Titrate encourage sitting by window On Sublingual Versed as needed off versed for short peroid 06/27; had to be restarted d/t agitation On fentanyl patch; decreased to 25 mcg from 50 (07/11) tentative plan to slowly wean off completely patient off precedex since 06/28. Patient had tremors suspected to be related to withdrawal from Precedex drip and therefore placed on clonidine patch. tremors resolved. Stable on olanzapine 10 mg daily Hypertension on clonidine patch; started 06/30 Acute hypoxic respiratory failure/acute lung injury s/p Tracheostomy 06/04/23; resolved Patient extubated on 05/21. Re-intubated overnight 05/29 for hypoxic respiratory failure CTA chest (05/30): No PE. RLL atelectasis, Mild bilateral pulmonary opacities, esophageal dilation Initial Sputum culture: Pseudomonas -> completed 2 weeks of merrem, however sputum growing pseudomonas again, now resistant to merrem (06/02) CXR (06/25): mild atelectasis in both lung bases. otherwise clear. Pulm / ENT are following ENT recommended cuffed tracheostomy to reduce risk of aspiration. s/p Tracheostomy 06/04/23 trach removed 06/27/22 by ENT. currently on room air Continue Xeroform dressing every other day until the stoma is completely closed per ENT UTI, MDR Pseudomonas Aeruginosa; resolved s/p Anti-Infective Agents Meropenem (05/06-05/24), (05/30-06/03) Vancomycin (05/06-05/16) (05/19-06/04) Micafungin (05/20-06/03) Cefepime (06/02-06/12) Off antibiotics since (06/13). Afebrile since (07/05) Acetaminophen toxicity, resolved Patient completed acetylcysteine IV infusion for APAP toxicity. Resolved. JERI secondary to acute blood loss anemia, hypotension/prerenal state; resolved Hypoglycemia Malnutrition/hypoalbuminemia JERI resolved. Nephrology is following. Continue TPN. Monitor and optimize electrolytes. Fingerstick glucose monitoring. VTE: Lovenox Code: Full Dispo: Home with HH. pending availability of Keppra suppositories / HH setup. Anticipate few days to ship / deliver from [place] currently nobody to prescribe fentanyl patch discussed with family/patient - they will call to make appointment with pain clinic. She has been on pain medication "long before this hospital", due to prior ortho injury / hip pain. Discussed topical options and will work to wean off narcotics since won't have patches on discharges as of now. change patch to 25mcvg today - already placed 50mcg, so will work off calculated assumption of 25-50mcg for today. Will hold off on further patch on Saturday, and monitor for ~48hrs for signs of withdrawal If pain is tolerable without any signs of withdrawal, anticipate dc home next /sat
[2023-07-11] MEDS ORDERED: FENTANYL 25 MCG/PATCH TD ONE (12:00)
--- NOTE | 2023-07-11 12:33 | PN ---
Ms. Vu has history of a gastric perforation. She is doing great and she is tolerating TPN. Unfort unately, we have no connection in the gastrointestinal tract and she is ambulating. She is moving ar ound. She had good spirits, and she is about to be discharged to home with TPN with the hope that th is can be connected in the future. She has been here for several months. She also wants to be out. I discussed the case yesterday with our bariatric surgeon, even though he does not consulted on this case officially because he does not work here for this kind of problem, but he, Dr. Moreno was kind enough to help me with the possible names of surgeons who can as an outpatient once the swelling is d one for the next few months may give an attempt to reconstruct that. The patient also want those nam es. I am documenting those names at this moment for the telehealth case manager to at least be able to give it to the patient too. The names that I was provided of gastric surgeon is Dr. Kana Jain and Dr. Willis Jain and they are in the [facility]. That information was provided also to the staff here to als o pass it to the patient. Right now, she is asymptomatic. Her abdomen is soft and depressible. All ARMIN drains are out. The incisions are intact. TABATHA/JIMMIE Voice ID: [id number] Report ID: [id number]
[2023-07-11] MEDS: [UNRECOGNIZED DRUG - OTHER] IV SCH ×5 (17:23)
[2023-07-11] MEDS: MIDAZOLAM 10 MG/5 ML ORAL SYR PO PRN (17:23)
[2023-07-11] MEDS: MAGNESIUM IV SCH ×5 (17:23)
[2023-07-11] MEDS: SODIUM ACETATE IV SCH ×5 (17:23)
[2023-07-11] MEDS: ENOXAPARIN 40 MG/0.4 ML SQ SCH (17:23)
[2023-07-11] MEDS: AMINO ACIDS IV SCH ×5 (17:23)
[2023-07-11] MEDS: DEXTROSE IV SCH ×5 (17:23)
[2023-07-11] MEDS ORDERED: LORazepam 2 MG/ML VIAL IV ONE (19:46)
[2023-07-12] MEDS: OLANZAPINE 5 MG PO SCH (09:22)
[2023-07-12] MEDS: levETIRAcetam 500 MG in NA CHLORIDE 0.9% 100 ML IV SCH ×2 (09:25→21:02)
--- NOTE | 2023-07-12 09:26 | P.PN ---
Date of Service: 07/12/23 Subjective: no new / worsening problems Stable. Wanting to go home Tolerating new fentanyl patch. Trying to wean off completely afebrile ROS: 10 point ROS as noted above, otherwise negative Physical Exam: GEN: Awake, oriented, NAD HEENT: Normal conjunctiva, sclera anicteric CV: Sinus tachycardia, no edema Pulm: nonlabored respirations on room air, clear bilaterally ABD: Soft, nondistended, nontender Neuro: No focal motor deficit. 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 S/P repair 05/05 Acute blood loss anemia secondary to upper GI bleed Hypovolemic shock secondary to GI bleed Seizures/metabolic encephalopathy/Hypoxic encephalopathy Bipolar disorder/depression/anxiety Delirium Hypertension Acute hypoxic respiratory failure/acute lung injury s/p Tracheostomy 06/04/23; resolved UTI, MDR Pseudomonas Aeruginosa; resolved Acetaminophen toxicity, resolved JERI secondary to acute blood loss anemia, hypotension/prerenal state; resolved Hypoglycemia Malnutrition/hypoalbuminemia 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 (05/05) Dr. Foster discussed with bariatric surgeons - not much options, need to wait many months before would attempt any further intra-abdominal procedures Patient pulled out ARMIN drain (06/26). Monitor for aspiration, Continue TPN at the current rate. Total 12 units PRBC transfused. s/p protonix drip; Patient has had at least 6 weeks of PPI hgb stable Seizures/metabolic encephalopathy/Hypoxic encephalopathy Seizures likely metabolic per Dr. Cameron. Given IV keppra (05/24-06/23) to cover for possible seizure given no EEG to eval. She had no seizures for a while. Dr. Cameron recommended to discontinue Keppra after 1 month of therapy. Patient had a seizure 07/04/23 so IV Keppra restarted with a loading dose. Potential route of Keppra administration discussed with pharmacy and neurology. General consensus is a trial of Keppra suppository and monitor Keppra level. She has sublingual Versed as needed available for breakthrough seizures. Pharmacy to procure Keppra suppository formulation for administration this week. Family need suppository, sublingual medications and TPN administration teaching before discharge. Discharge pending availability of Keppra suppositories. Anticipate few days to ship / deliver from [place] wean opioids Bipolar disorder/depression/anxiety Delirium Oral meds held given NPO status. Patient started on sublingual Zyprexa-Titrate encourage sitting by window On Sublingual Versed as needed On fentanyl patch; decreased to 25 mcg from 50 (07/11) tentative plan to slowly wean off completely patient off precedex since 06/28. Patient had tremors suspected to be related to withdrawal from Precedex drip and therefore placed on clonidine patch. tremors resolved. Stable on olanzapine 10 mg daily Hypertension on clonidine patch; started 06/30 Acute hypoxic respiratory failure/acute lung injury s/p Tracheostomy 06/04/23; resolved Patient extubated on 05/21. Re-intubated overnight 05/29 for hypoxic respiratory failure CTA chest (05/30): No PE. RLL atelectasis, Mild bilateral pulmonary opacities, esophageal dilation Initial Sputum culture: Pseudomonas -> completed 2 weeks of merrem, however sputum growing pseudomonas again, now resistant to merrem (06/02) CXR (06/25): mild atelectasis in both lung bases. otherwise clear. Pulm / ENT are following ENT recommended cuffed tracheostomy to reduce risk of aspiration. s/p Tracheostomy 06/04/23 trach removed 06/27/22 by ENT. currently on room air Continue Xeroform dressing every other day until the stoma is completely closed per ENT UTI, MDR Pseudomonas Aeruginosa; resolved s/p Anti-Infective Agents Meropenem (05/06-05/24), (05/30-06/03) Vancomycin (05/06-05/16) (05/19-06/04) Micafungin (05/20-06/03) Cefepime (06/02-06/12) Off antibiotics since (06/13). Afebrile since (07/05) Acetaminophen toxicity, resolved Patient completed acetylcysteine IV infusion for APAP toxicity. Resolved. JERI secondary to acute blood loss anemia, hypotension/prerenal state; resolved Hypoglycemia Malnutrition/hypoalbuminemia JERI resolved. Nephrology is following. Continue TPN. Monitor and optimize electrolytes. Fingerstick glucose monitoring. VTE: Lovenox Code: Full Dispo: Home with HH. pending availability of Keppra suppositories / HH setup. Anticipate few days to ship / deliver from [place] currently nobody to prescribe fentanyl patch discussed with family/patient - they will call to make appointment with pain clinic. She has been on pain medication "long before this hospital", due to prior ortho injury / hip pain. Discussed topical options and will work to wean off narcotics since won't have patches on discharges as of now. patch changed to 25mcvg (07/11) - already placed 50mcg, so will work off calculated assumption of 25-50mcg Will hold off on further patch on Saturday, and monitor for ~48hrs for signs of withdrawal If pain is tolerable without any signs of withdrawal, anticipate dc home next /sat
--- NOTE | 2023-07-12 12:16 | P.PN ---
Subjective Date of Service: 07/13/23 Chief Complaint: S/p gastric rupture, Physical Examination - Vital Signs Temperature: 97.2 F Blood Pressure: 108/56 Pulse: 67 Respirations: 18 Pulse Ox (%): 98 Assessment And Plan - Plan 1. Acute kidney injury secondary to poor perfusion ATN, toxic ATN. SCr improved to 0.5-0.6. On TPN. Monitor renal panel. 2. Hypokalemia, hypomagnesemia, hypophosphatemia. Lytes repletion prn. 3. Hypernatremia. Improved. IV hydration & TPN as above. 4. Gastric pouch perforation, status post surgery. Per Gen Surg service. 5. Anemia. pRBC transf prn for Hgb < 7.0. No indication for DAMON. 6. Deconditioning. Continue physical therapy and occupational therapy. lorrainerenrice 1. Acute kidney injury secondary to cardiorenal, recovered, resolved. 2. Hypokalemia, hypomagnesemia, hypophosphatemia secondary to perforated viscus. N.p.o. Continue TPN. 3. Perforated viscus as by Surgery.
[2023-07-12] MEDS: SODIUM ACETATE IV SCH ×6 (16:46)
[2023-07-12] MEDS: AMINO ACIDS IV SCH ×6 (16:46)
[2023-07-12] MEDS: [UNRECOGNIZED DRUG - OTHER] IV SCH ×6 (16:46)
[2023-07-12] MEDS: DEXTROSE 20% IV SCH ×6 (16:46)
[2023-07-12] MEDS: LIPIDS 20% IV SCH ×6 (16:46)
[2023-07-12] MEDS: ENOXAPARIN 40 MG/0.4 ML SQ SCH (16:50)
[2023-07-12] MEDS ORDERED: LORazepam 2 MG/ML VIAL IV ONE (20:12)
[2023-07-13] MEDS: ACETAMINOPHEN 650MG/RECT SUPP PR PRN ×2 (06:49→21:08)
[2023-07-13] MEDS: OLANZAPINE 5 MG PO SCH (09:27)
[2023-07-13] MEDS: levETIRAcetam 500 MG in NA CHLORIDE 0.9% 100 ML IV SCH ×2 (09:28→20:53)
[2023-07-13 11:05] LABS: Hematocrit 26.2 % (36.0-45.0); Lymphocytes % 25.2 % (15.3-44.8); MCV 89.9 fL (80-100); MPV 8.5 fL (7.6-11.3); Platelets 298 thou/uL (152-406); RBC Red Blood Cell Count 2.92 M/uL (3.86-4.86)
--- NOTE | 2023-07-13 11:13 | P.PN ---
Date of Service: 07/13/23 Subjective: Denies new / worsening problems tolerating lower dose fentanyl patch family updated on discharge plan yesterday afternoon afebrile ROS: 10 point ROS as noted above, otherwise negative Physical Exam: GEN: Awake, oriented, NAD HEENT: Normal conjunctiva, sclera anicteric CV: Sinus tachycardia, no edema Pulm: nonlabored respirations on room air, clear bilaterally ABD: Soft, nondistended, nontender Neuro: No focal motor deficit. 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 S/P repair 05/05 Acute blood loss anemia secondary to upper GI bleed Hypovolemic shock secondary to GI bleed Seizures/metabolic encephalopathy/Hypoxic encephalopathy Bipolar disorder/depression/anxiety Delirium Hypertension Acute hypoxic respiratory failure/acute lung injury s/p Tracheostomy 06/04/23; resolved UTI, MDR Pseudomonas Aeruginosa; resolved Acetaminophen toxicity, resolved JERI secondary to acute blood loss anemia, hypotension/prerenal state; resolved Hypoglycemia Malnutrition/hypoalbuminemia 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 (05/05) Dr. Foster discussed with bariatric surgeons - not much options, need to wait many months before would attempt any further intra-abdominal procedures Patient pulled out ARMIN drain (06/26). Monitor for aspiration, Continue TPN at the current rate. Total 12 units PRBC transfused. s/p protonix drip; Patient has had at least 6 weeks of PPI hgb stable Seizures/metabolic encephalopathy/Hypoxic encephalopathy Seizures likely metabolic per Dr. Cameron. Given IV keppra (05/24-06/23) to cover for possible seizure given no EEG to eval. She had no seizures for a while. Dr. Cameron recommended to discontinue Keppra after 1 month of therapy. Patient had a seizure 07/04/23 so IV Keppra restarted with a loading dose. Potential route of Keppra administration discussed with pharmacy and neurology. General consensus is a trial of Keppra suppository and monitor Keppra level. She has sublingual Versed as needed available for breakthrough seizures. Pharmacy to procure Keppra suppository formulation for administration this week. Family need suppository, sublingual medications and TPN administration teaching before discharge. Discharge pending availability of Keppra suppositories. Anticipate few days to ship / deliver from [place] wean opioids Bipolar disorder/depression/anxiety Delirium Oral meds held given NPO status. Patient started on sublingual Zyprexa-Titrate encourage sitting by window On Sublingual Versed as needed On fentanyl patch; decreased to 25 mcg from 50 (07/11) tentative plan to slowly wean off completely. Will hold off on further patch on Saturday, and monitor for ~48hrs for signs of withdrawal patient off precedex since 06/28. Patient had tremors suspected to be related to withdrawal from Precedex drip and therefore placed on clonidine patch. tremors resolved. Stable on olanzapine 10 mg daily Hypertension on clonidine patch; started 06/30 Acute hypoxic respiratory failure/acute lung injury s/p Tracheostomy 06/04/23; resolved Patient extubated on 05/21. Re-intubated overnight 05/29 for hypoxic respiratory failure CTA chest (05/30): No PE. RLL atelectasis, Mild bilateral pulmonary opacities, esophageal dilation Initial Sputum culture: Pseudomonas -> completed 2 weeks of merrem, however sputum growing pseudomonas again, now resistant to merrem (06/02) CXR (06/25): mild atelectasis in both lung bases. otherwise clear. Pulm / ENT are following ENT recommended cuffed tracheostomy to reduce risk of aspiration. s/p Tracheostomy 06/04/23 trach removed 06/27/22 by ENT. currently on room air UTI, MDR Pseudomonas Aeruginosa; resolved s/p Anti-Infective Agents Meropenem (05/06-05/24), (05/30-06/03) Vancomycin (05/06-05/16) (05/19-06/04) Micafungin (05/20-06/03) Cefepime (06/02-06/12) Off antibiotics since (06/13). Afebrile since (07/05) Acetaminophen toxicity, resolved Patient completed acetylcysteine IV infusion for APAP toxicity. Resolved. JERI secondary to acute blood loss anemia, hypotension/prerenal state; resolved Hypoglycemia Malnutrition/hypoalbuminemia JERI resolved. Nephrology is following. Continue TPN. Monitor and optimize electrolytes. Fingerstick glucose monitoring. VTE: Lovenox Code: Full Dispo: Home with HH. pending availability of Keppra suppositories / HH setup. Anticipate few days to ship / deliver keppra from [place] currently nobody to prescribe fentanyl patch discussed with family/patient - they will call to make appointment with pain clinic. She has been on pain medication "long before this hospital", due to prior ortho injury / hip pain. Discussed topical options and will work to wean off narcotics since won't have patches on discharges as of now. patch changed to 25mcvg (07/11) - already placed 50mcg, so will work off calculated assumption of 25-50mcg Will hold off on further patch on Saturday, and monitor for ~48hrs for signs of withdrawal If pain is tolerable without any signs of withdrawal, anticipate dc home next /sat
[2023-07-13 11:23] LABS: Albumin 2.1 g/dL (3.4-5.0); Bilirubin Total 0.5 mg/dL (0.2-1.0); Magnesium 2.2 mg/dL (1.6-2.4); Phosphorus 3.8 mg/dL (2.5-4.9); Potassium 3.7 mEq/L (3.5-5.1); Protein, Total 6.2 g/dL (6.4-8.2)
[2023-07-13] MEDS: [UNRECOGNIZED DRUG - OTHER] IV SCH ×5 (17:42)
[2023-07-13] MEDS: AMINO ACIDS IV SCH ×5 (17:42)
[2023-07-13] MEDS: MAGNESIUM IV SCH ×5 (17:42)
[2023-07-13] MEDS: SODIUM ACETATE IV SCH ×5 (17:42)
[2023-07-13] MEDS: DEXTROSE IV SCH ×5 (17:42)
[2023-07-13] MEDS: ENOXAPARIN 40 MG/0.4 ML SQ SCH (17:46)
[2023-07-13] MEDS ORDERED: LORazepam 2 MG/ML VIAL IV ONE (19:45)
[2023-07-14] MEDS: CLONIDINE 0.1 MG/PATCH TD SCH (08:38)
[2023-07-14] MEDS: levETIRAcetam 500 MG in NA CHLORIDE 0.9% 100 ML IV SCH ×2 (08:40→19:48)
[2023-07-14] MEDS: OLANZAPINE 5 MG PO SCH (08:40)
--- NOTE | 2023-07-14 10:11 | P.PN ---
Date of Service: 07/14/23 Subjective: feels shoulder is slowly improving - has been weak for a few weeks per patient report no new issues/concerns ROS: 10 point ROS as noted above, otherwise negative Physical Exam: GEN: Awake, oriented, NAD HEENT: Normal conjunctiva, sclera anicteric CV: regular rate/rhythm, no edema Pulm: nonlabored respirations on room air, clear bilaterally ABD: Soft, nondistended, nontender MSK: no tenderness Neuro: Shoulder abduction to ~60 degrees ok, unable to go beyond. str 5/5 at fingers/wrists/forearms. slight Discomfort / pain along shoulder joint with passive ROM. intact distal sensation 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 S/P repair 05/05/23 Acute blood loss anemia secondary to upper GI bleed Hypovolemic shock secondary to GI bleed Seizures/metabolic encephalopathy/Hypoxic encephalopathy Bipolar disorder/depression/anxiety Delirium Right shoulder weakness Hypertension Acute hypoxic respiratory failure/acute lung injury s/p Tracheostomy 06/04/23; resolved UTI, MDR Pseudomonas Aeruginosa; resolved Acetaminophen toxicity, resolved JERI secondary to acute blood loss anemia, hypotension/prerenal state; resolved Hypoglycemia Malnutrition/hypoalbuminemia 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 (05/05/23) S/P Ex lap-small bowel david limb repair, repair of gastric pouch (05/05/23) Dr. Foster discussed with bariatric surgeons - not much options, need to wait many months before would attempt any further intra-abdominal procedures Monitor for aspiration, Continue TPN at the current rate. Total 12 units PRBC transfused. (last transfusion 06/02/23) s/p protonix drip; Patient has had at least 6 weeks of PPI hgb stable Seizures/metabolic encephalopathy/Hypoxic encephalopathy Seizures likely metabolic per Dr. Cameron. Given IV keppra (05/24-06/23) to cover for possible seizure given no EEG to eval. She had no seizures for a while. Dr. Cameron recommended to discontinue Keppra after 1 month of therapy. Seizure 07/04/23 so IV Keppra restarted with a loading dose. Potential route of Keppra administration discussed with pharmacy and neurology. General consensus is a trial of Keppra suppository and monitor Keppra level. She has sublingual Versed as needed available for breakthrough seizures. Family need suppository, sublingual medications and TPN administration teaching before discharge. Discharge pending availability of Keppra suppositories. Anticipate few days to ship / deliver from [place] wean opioids Bipolar disorder/depression/anxiety Delirium Oral meds held given NPO status. On fentanyl patch; decreased to 25 mcg from 50 (07/11) tentative plan to slowly wean off completely. No further patches. monitor closely next ~48hrs for signs of withdrawal patient off precedex since (06/28). started on clonidine patch (06/30) given tremors / concern for withdrawals. tremors resolved. Stable on olanzapine 5 mg daily Right shoulder weakness unclear etiology; ?pinched nerve / brachial plexus injury needs PT and outpatient EMG / nerve conduction study Hypertension on clonidine patch; started 06/30 Acute hypoxic respiratory failure/acute lung injury s/p Tracheostomy 06/04/23; resolved Patient extubated on 05/21. Re-intubated overnight 05/29 for hypoxic respiratory failure CTA chest (05/30): No PE. RLL atelectasis, Mild bilateral pulmonary opacities, esophageal dilation Sputum culture noted to grow Pseudomonas Aeruginosa on 3 different occasions, more resistant each time; s/p antibiotic therapy. (antibiotics below) Pulm / ENT are following ENT recommended cuffed tracheostomy to reduce risk of aspiration. s/p Tracheostomy 06/04/23 trach removed 06/27/22 by ENT. currently on room air UTI, MDR Pseudomonas Aeruginosa; resolved Urine cx grew MDR pseudomonas aeruginosa (05/30) s/p ~2 weeks of IV abx Anti-Infective Agents this hospitalization below: Meropenem (05/06-05/24), (05/30-06/03) Vancomycin (05/06-05/16) (05/19-06/04) Micafungin (05/20-06/03) Cefepime (06/02-06/12) Off antibiotics since (06/13). Afebrile since (07/05) Acetaminophen toxicity, resolved Patient completed acetylcysteine IV infusion for APAP toxicity. Resolved. JERI secondary to acute blood loss anemia, hypotension/prerenal state; resolved Hypoglycemia Malnutrition/hypoalbuminemia JERI resolved. Nephrology is following. Continue TPN. Monitor and optimize electrolytes. Fingerstick glucose monitoring. VTE: Lovenox Code: Full Dispo: Home with HH. pending availability of Keppra suppositories / HH setup. Anticipate few days to ship / deliver keppra from [place] currently nobody to prescribe fentanyl patch Family to make appt for pain clinic. She has been on pain medication "long before this hospital", due to prior ortho injury / hip pain. wean off narcotics since won't have patches on discharges as of now. hold off on further patches, monitor closely next ~48hrs for s/s of withdrawal If pain is tolerable without any signs of withdrawal, anticipate dc home this /sat
[2023-07-14] MEDS: MAGNESIUM IV SCH ×5 (16:45)
[2023-07-14] MEDS: AMINO ACIDS IV SCH ×5 (16:45)
[2023-07-14] MEDS: SODIUM ACETATE IV SCH ×5 (16:45)
[2023-07-14] MEDS: DEXTROSE IV SCH ×5 (16:45)
[2023-07-14] MEDS: [UNRECOGNIZED DRUG - OTHER] IV SCH ×5 (16:45)
[2023-07-14] MEDS: ENOXAPARIN 40 MG/0.4 ML SQ SCH (16:46)
[2023-07-14] MEDS ORDERED: LORazepam 2 MG/ML VIAL IV ONE (19:37)
--- NOTE | 2023-07-15 07:37 | P.PN ---
Date of Service: 07/15/23 Subjective: Doing okay. no new/worsening symptoms Reports Keppra suppositories were delivered family to be taught TPN administration today per notes No reported signs of withdrawals so far ROS: 10 point ROS as noted above, otherwise negative Physical Exam: GEN: Awake, oriented, NAD HEENT: Normal conjunctiva, sclera anicteric CV: regular rate/rhythm, no edema Pulm: nonlabored respirations on room air, clear bilaterally MSK: no tenderness Neuro: Shoulder abduction to ~60 degrees ok, unable to go beyond. str 5/5 at fingers/wrists/forearms. slight Discomfort / pain along shoulder joint with passive ROM. 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 S/P repair 05/05/23 Acute blood loss anemia secondary to upper GI bleed Hypovolemic shock secondary to GI bleed Seizures/metabolic encephalopathy/Hypoxic encephalopathy Bipolar disorder/depression/anxiety Delirium Right shoulder weakness Hypertension Acute hypoxic respiratory failure/acute lung injury s/p Tracheostomy 06/04/23; resolved UTI, MDR Pseudomonas Aeruginosa; resolved Acetaminophen toxicity, resolved JERI secondary to acute blood loss anemia, hypotension/prerenal state; resolved Hypoglycemia Malnutrition/hypoalbuminemia 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 (05/05/23) S/P Ex lap-small bowel david limb repair, repair of gastric pouch (05/05/23) Dr. Foster discussed with bariatric surgeons - not much options, need to wait many months before would attempt any further intra-abdominal procedures Monitor for aspiration, Continue TPN at the current rate. Total 12 units PRBC transfused. (last transfusion 06/02/23) s/p protonix drip; Patient has had at least 6 weeks of PPI hgb stable Seizures/metabolic encephalopathy/Hypoxic encephalopathy Seizures likely metabolic per Dr. Cameron. Given IV keppra (05/24-06/23) to cover for possible seizure given no EEG to eval. She had no seizures for a while. Dr. Cameron recommended to discontinue Keppra after 1 month of therapy. Seizure 07/04/23 so IV Keppra restarted with a loading dose. Potential route of Keppra administration discussed with pharmacy and neurology. General consensus is a trial of Keppra suppository and monitor Keppra level. She has sublingual Versed as needed available for breakthrough seizures. Family need suppository, sublingual medications and TPN administration teaching before discharge. Keppra suppositories have been delivered. wean opioids monitor for withdrawal, if she were to develop symptoms, would be tonight/overnight Bipolar disorder/depression/anxiety Delirium Oral meds held given NPO status. patient off precedex since (06/28). started on clonidine patch (06/30) given tremors / concern for withdrawals. tremors resolved. Off fentanyl patch since 07/14/23. Avoid further patches. monitor closely next ~48hrs for signs of withdrawal Stable on olanzapine 5 mg daily Right shoulder weakness unclear etiology; ?pinched nerve / brachial plexus injury needs PT and outpatient EMG / nerve conduction study Hypertension on clonidine patch; started 06/30 Acute hypoxic respiratory failure/acute lung injury s/p Tracheostomy 06/04/23; resolved Patient extubated on 05/21. Re-intubated overnight 05/29 for hypoxic respiratory failure CTA chest (05/30): No PE. RLL atelectasis, Mild bilateral pulmonary opacities, esophageal dilation Sputum culture noted to grow Pseudomonas Aeruginosa on 3 different occasions, more resistant each time; s/p antibiotic therapy. (antibiotics below) Pulm / ENT are following ENT recommended cuffed tracheostomy to reduce risk of aspiration. s/p Tracheostomy 06/04/23 trach removed 06/27/22 by ENT. currently on room air UTI, MDR Pseudomonas Aeruginosa; resolved Urine cx grew MDR pseudomonas aeruginosa (05/30) s/p ~2 weeks of IV abx Anti-Infective Agents this hospitalization below: Meropenem (05/06-05/24), (05/30-06/03) Vancomycin (05/06-05/16) (05/19-06/04) Micafungin (05/20-06/03) Cefepime (06/02-06/12) Off antibiotics since (06/13). Afebrile since (07/05) Acetaminophen toxicity, resolved Patient completed acetylcysteine IV infusion for APAP toxicity. Resolved. JERI secondary to acute blood loss anemia, hypotension/prerenal state; resolved Hypoglycemia Malnutrition/hypoalbuminemia JERI resolved. Nephrology is following. Continue TPN. Family to be taught TPN administration today Monitor and optimize electrolytes. Fingerstick glucose monitoring. VTE: Lovenox Code: Full Dispo: Home with HH. pending HH setup / no signs of withdrawals. currently nobody to prescribe fentanyl patch Family to make appt for pain clinic. She has been on pain medication "long before this hospital", due to prior ortho injury / hip pain. wean off narcotics since won't have patches on discharges as of now. Monitor closely next ~48hrs for s/s of withdrawal. If pain is tolerable without any signs of withdrawal, anticipate dc home this /sat Keppra suppositories have been delivered.
[2023-07-15] MEDS: OLANZAPINE 5 MG PO SCH (08:55)
[2023-07-15] MEDS: levETIRAcetam 500 MG in NA CHLORIDE 0.9% 100 ML IV SCH ×2 (08:58→21:21)
[2023-07-15] MEDS: ACETAMINOPHEN 650MG/RECT SUPP PR PRN (09:01)
[2023-07-15] MEDS: DEXTROSE 20% IV SCH ×6 (16:45)
[2023-07-15] MEDS: SODIUM ACETATE IV SCH ×6 (16:45)
[2023-07-15] MEDS: [UNRECOGNIZED DRUG - OTHER] IV SCH ×6 (16:45)
[2023-07-15] MEDS: AMINO ACIDS IV SCH ×6 (16:45)
[2023-07-15] MEDS: ENOXAPARIN 40 MG/0.4 ML SQ SCH (16:45)
[2023-07-15] MEDS: LIPIDS 20% IV SCH ×6 (16:45)
[2023-07-16] MEDS ORDERED: LORazepam 2 MG/ML VIAL IV ONE (00:35)
[2023-07-16] MEDS: ACETAMINOPHEN 650MG/RECT SUPP PR PRN ×2 (00:48→16:50)
--- NOTE | 2023-07-16 00:48 | PN ---
Date of Progress Note: 07/15/2023 Chief Complaint: Acute kidney injury. Subjective: The patient on presentation to the hospital was found to have acute kidney injury second hari to cardiorenal syndrome, hypotension. The patient presented with perforated viscus. Renal funct ion has improved. The patient did not require renal replacement therapy. She is feeling well. She is on TPN. Review of Systems: Denies chest pain, palpitation. Physical Examination: Lungs: Clear to auscultation bilaterally. Heart: S1, S2. Abdomen: Soft. Extremities: Slight edema in both ankles. Impression And Plan: 1.Acute kidney injury secondary to cardiorenal syndrome, recovered and resolved. 2.Hypokalemia, hypomagnesemia, hypophosphatemia secondary to perforated viscus. The patient is on T PN. Continue TPN. The patient will need outpatient electrolytes. Lab work to be evaluated. 3.Perforated viscus as per Surgery. ALLA/MODL Voice ID: [id number] Report ID: [id number]
[2023-07-16 04:40] LABS: Hematocrit 28.1 % (36.0-45.0); Lymphocytes % 27.8 % (15.3-44.8); MCV 90.2 fL (80-100); MPV 8.1 fL (7.6-11.3); Platelets 324 thou/uL (152-406); RBC Red Blood Cell Count 3.11 M/uL (3.86-4.86)
[2023-07-16 05:45] LABS: Albumin 2.2 g/dL (3.4-5.0); Bilirubin Total 0.6 mg/dL (0.2-1.0); Magnesium 2.2 mg/dL (1.6-2.4); Phosphorus 4.1 mg/dL (2.5-4.9); Potassium 3.6 mEq/L (3.5-5.1); Protein, Total 6.4 g/dL (6.4-8.2)
[2023-07-16] MEDS: OLANZAPINE 5 MG PO SCH (09:00)
[2023-07-16] MEDS: levETIRAcetam 500 MG in NA CHLORIDE 0.9% 100 ML IV SCH (09:00)
[2023-07-16 09:57] VITALS: O2SAT 95
--- NOTE | 2023-07-16 13:27 | P.DS ---
Admission Date: 05/05/23 Discharge Date: 07/16/23 Reason for Admission: S/p gastric rupture, Brief History of Present Illness: Patient is a 48-year-old female who came to the hospital with abdominal pain. On presentation, she was writhing in pain. She was moaning and in a lot of di stress. She had blood on her mouth and on her hospital bed. She was having significant abdominal tenderness. According to the , patient had gone to see a clerical grader at [facility] days before onset of her symptoms. She was supposed to get scheduled for colonoscopy. However, she was looking very ill, and he was told to take her to the emergency room. She was in the emergency room for a few hours and she was discharged. She was told she has some renal insufficiency. Patient was discharged home but her symptoms did not improve. She developed generalized weakness. She reports considerable weight loss because she is not able to eat. Her albumin was less than 2. Her coagulation profile was slightly elevated. Her hemoglobin is 10.8. She was found hypotensive with a blood pressure of 90/50. Her heart rate is 110s. Blood transfusion was ordered. GI was consulted and plan was to do EGD. General surgery also notified and patient admitted to the intensive care unit. Her acetaminophen level is slightly elevated. She does have a significant macrocytic anemia. Patient was started on a PPI drip and octreotide drip. 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 S/P repair 05/05/23 Acute blood loss anemia secondary to upper GI bleed Hypovolemic shock secondary to GI bleed Seizures/metabolic encephalopathy/Hypoxic encephalopathy Bipolar disorder/depression/anxiety Delirium Right shoulder weakness Hypertension Acute hypoxic respiratory failure/acute lung injury s/p Tracheostomy 06/04/23; resolved UTI, MDR Pseudomonas Aeruginosa; resolved Acetaminophen toxicity, resolved JERI secondary to acute blood loss anemia, hypotension/prerenal state; resolved Hypoglycemia Malnutrition/hypoalbuminemia 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 (05/05/23) S/P Ex lap-small bowel laura limb repair, repair of gastric pouch (05/05/23) Dr. Foster discussed with bariatric surgeons - not much options, need to wait many months before any attempt any further intra-abdominal procedures Patient fed with TPN and electrolytes monitor Total 12 units PRBC transfused. (last transfusion 06/02/23) s/p protonix drip; Patient has had at least 6 weeks of PPI hgb was stable. Patient has established care with a PMD Dr. Loza. Follow-ups were discussed with her family comprising her mother, father and and they are making arrangement for follow up at [facility] Bariatric Surgery Department for revision surgery which is needed at least 4 months from now. Seizures/metabolic encephalopathy/Hypoxic encephalopathy Seizures likely metabolic per Dr. Cameron. Given IV keppra (05/24-06/23) to c over for possible seizure given no EEG to eval. She had no seizures for a while. Dr. Cameron recommended to discontinue Keppra after 1 month of therapy. She had a seizure again on 07/04/23 so IV Keppra restarted with a loading dose. Potential route of Keppra administration discussed with pharmacy and neurology. General consensus is a trial of Keppra suppository and monitor Keppra level. She was prescribed sublingual Versed as needed a for anxiety and breakthrough seizure. Family given suppository, sublingual medications and TPN administration teaching. Keppra suppositories have been delivered. She has been weaned off fentanyl patch without withdrawal symptoms. monitor for withdrawal, if she were to develop symptoms, would be tonight/overnight Bipolar disorder/depression/anxiety Delirium Oral meds held given NPO status. She was treated with precedex for anxiety and agitation and later started on clonidine patch (06/30). She has been stable on clonidine She was seen by psychiatry and prescribed sublingual olanzapine 5 mg daily Right shoulder weakness unclear etiology; pinched nerve / brachial plexus injury suspected needs PT and outpatient EMG / nerve conduction study. Patient discharged with home health for PT. She has been informed to follow-up with Dr. Cameron as outpatient. Hypertension Managed with on clonidine patch. Acute hypoxic respiratory failure/acute lung injury s/p Tracheostomy 06/04/23; resolved She was intubated and was on mechanical ventilation for several days. Eventually extubated on 05/21. Re-intubated overnight 05/29 for hypoxic respiratory failure CTA chest (05/30): No PE. RLL atelectasis, Mild bilateral pulmonary opacities, esophageal dilation Sputum culture noted to grow Pseudomonas Aeruginosa on 3 different occasions, more resistant each time; s/p antibiotic therapy. (antibiotics below) Pulm / ENT assisted with management. ENT recommended cuffed tracheostomy to reduce risk of aspiration. S/p Tracheostomy 06/04/23 trach removed 06/27/22 by ENT. Respiratory failure resolved, patient has been stable on room air and receiving dressing for a tracheostomy wound. UTI, MDR Pseudomonas Aeruginosa; resolved Urine cx grew MDR pseudomonas aeruginosa (05/30) s/p ~2 weeks of IV abx Anti-Infective Agents this hospitalization below: Meropenem (05/06-05/24), (05/30-06/03) Vancomycin (05/06-05/16) (05/19-06/04) Micafungin (05/20-06/03) Cefepime (06/02-06/12) Patient was treated with several days of IV antibiotics. Acetaminophen toxicity, resolved Patient completed acetylcysteine IV infusion for APAP toxicity. Toxicity resolved. JERI secondary to acute blood loss anemia, hypotension/prerenal state; resolved Hypoglycemia Malnutrition/hypoalbuminemia JERI resolved. Nephrology assisted with management On TPN. Family to be taught TPN administration. Chronic pain syndrome Family to make appt for pain clinic. Vital Signs/Physical Exam: Temp Pulse Resp BP Pulse Ox 97.9 F 110 H 18 162/95 H 100 07/16/23 12:00 07/16/23 12:00 07/16/23 12:00 07/16/23 12:07/16/23 12:00 General: In no apparent distress, Other (Awake and interactive) HEENT: Mucous membr. moist/pink Neck: Other (Tracheostomy stoma) Respiratory: Clear to auscultation bilaterally, Normal air movement Cardiovascular: No edema, Regular rate/rhythm, Normal S1 S2 Gastrointestinal: Normal bowel sounds, Soft and benign, Non-distended Musculoskeletal: No swelling Integumentary: No rashes, No cyanosis Neurological: Other (Right shoulder abduction weakness) Laboratory Data at Discharge: WBC 3.70 thou/uL (4.3-10.9) L 07/16/23 04:12 Hgb 9.6 g/dL (12.0-15.0) L 07/16/23 04:12 Hct 28.1 % (36.0-45.0) L 07/16/23 04:12 Plt Count 324 thou/uL (152-406) 07/16/23 04:12 PT 12.4 SECONDS (9.5-12.5) 05/30/23 16:13 INR 1.13 05/30/23 16:13 APTT 28.1 SECONDS (24.3-36.9) 05/30/23 16:13 Sodium 139 mEq/L (136-145) 07/16/23 04:12 Potassium 3.6 mEq/L (3.5-5.1) 07/16/23 04:12 BUN 21 mg/dL (7-18) H 07/16/23 04:12 Creatinine 0.62 mg/dL (0.55-1.02) 07/16/23 04:12 Glucose 109 mg/dL (74-106) H 07/16/23 04:12 Phosphorus 4.1 mg/dL (2.5-4.9) 07/16/23 04:12 Magnesium 2.2 mg/dL (1.6-2.4) 07/16/23 04:12 Total Bilirubin 0.6 mg/dL (0.2-1.0) 07/16/23 04:12 AST 17 U/L (15-37) 07/16/23 04:12 ALT 19 U/L (13-56) 07/16/23 04:12 Alkaline Phosphatase 57 U/L (45-117) 07/16/23 04:12 Triglycerides 106 mg/dL (<150) 07/16/23 04:12 Home Medications: Acetaminophen [Tylenol*] 650 mg AK Q6H PRN supp 07/02/23 Clonidine Patch [Catapres-Tts 1*] 0.1 mg TD EVERY 7TH DAY pat 07/02/23 Mupirocin Oint [Bactroban 2% Ointment*] 1 appl TOP DAILY tube 07/02/23 OLANZapine [Zyprexa Zydis] 10 mg SL DAILY #30 tab 07/02/23 Ondansetron [Zofran] 4 mg PO Q6H PRN #30 tab 07/02/23 levETIRAcetam [Keppra] 500 mg AK BID #60 tab 07/05/23 New Medications: levETIRAcetam [Keppra] 500 mg AK BID #60 tab Ondansetron [Zofran] 4 mg PO Q6H PRN #30 tab PRN Reason: Nausea / Vomiting OLANZapine [Zyprexa Zydis] 10 mg SL DAILY #30 tab Physician Discharge Instructions: Diagnosis: Gastric pouch perforation/rupture repair Blind end esophagus History of Laura-en-Y bypass S/P repair. Acute blood loss anemia secondary to upper GI bleed Hypovolemic shock secondary to GI bleed Epilepsy Bipolar disorder/depression/anxiety Right shoulder weakness Hypertension Acute hypoxic respiratory failure Acute lung injury s/p Tracheostomy and removal of tracheostomy tube. UTI. Acetaminophen toxicity, resolved Acute kidney injury secondary to acute blood loss anemia. Hypoglycemia Malnutrition with hypoalbuminemia. 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 Your only form of feeding is Total parenteral nutrition which is given through your blood. You had multiple seizures during the hospital stay and at this time you are diagnosed with epilepsy which requires you take antiepileptic medication every day. Also you are prescribed the antiepileptic drug called Keppra suppositories that can be given only through the rectum and should be given twice a day. You have high blood pressure which is being controlled with a skin patch Clonidine which needs to be changed every 7 days. You will need to follow-up with [facility] bariatric surgery department to reevaluate you for further surgery which includes reestablishing communication between your esophagus and your stomach and surgery can only be done after 4 months which is the period required for adequate healing from your most recent surgery. You will need to follow-up with the ENT surgeon Dr. Campoverde regarding your tracheostomy stoma (the hole in your neck area). Please call her office for an appointment. You will need to follow-up with the neurologist Dr. Cameron regarding your new epilepsy diagnosis. Please call his office for an appointment. Please call [facility] office if you need a refill for the joiner blingual zyprexa which you are taking for your mood disorders. You need to follow-up with a pain clinic if you need pain management but you cannot take any oral pain medication, only options are pain medications given by skin patch, sublingual or rectal. Activity: Fall precautions Followup: NONE,NONE [Primary Care Provider] - Mireya Loza MD [OUTSIDE PHYSICIAN] - 2-3 Days Chidi Cameron MD [ASSOCIATE-ACTIVE - CAN ADMIT] - Carolynn Campoverde DO [ACTIVE - CAN ADMIT] - Time spent managing pt's care (in minutes): 42
--- NOTE | 2023-07-16 14:54 | PN ---
Date of Progress Note: 07/16/2023 Subjective: Patient was admitted with perforated viscus. Patient is status post surgery. Patient h ad complicated with acute kidney injury, recovered, did not require any renal replacement therapy. P atient is n.p.o. because of the perforated viscus, on TPN. Lab has been corrected. Physical Examination: Vital Signs: Blood pressure 162/95, pulse of 110. Afebrile. Chest: Clear to auscultation. Heart: S1, S2. Regular. Abdomen: Soft, nontender. Extremities: No edema. Neuro: Alert. No focality. Laboratory Data: Hemoglobin 9.6. Sodium 139, potassium 3.6, bicarb 24, BUN 21, creatinine 0.6, calc ium 8.9. Phosphorus 4.2. Albumin 2.2. Current Medications: The patient is on include TPN, Keppra, Tylenol, midazolam. Assessment And Plan: 1.Acute kidney injury secondary to toxic acute tubular necrosis, recovered, resolved. 2.Hypokalemia, hypomagnesemia, and hypophosphatemia secondary to malnourished. Continue TPN. 3.Perforated viscus as by Primary and Surgery. LISA/JIMMIE Voice ID: [id number] Report ID: [id number]
[2023-07-16] MEDS: [UNRECOGNIZED DRUG - OTHER] IV SCH ×5 (16:51)
[2023-07-16] MEDS: ENOXAPARIN 40 MG/0.4 ML SQ SCH (16:51)
[2023-07-16] MEDS: SODIUM ACETATE IV SCH ×5 (16:51)
[2023-07-16] MEDS: MAGNESIUM IV SCH ×5 (16:51)
[2023-07-16] MEDS: AMINO ACIDS IV SCH ×5 (16:51)
[2023-07-16] MEDS: DEXTROSE IV SCH ×5 (16:51)
[2023-07-16 20:05] VITALS: BP 182/88; TEMP 97.6
== END 2023-07-16 20:05 | disposition home or self-care (01) | DRG 3 ==
LOC: ER 03:16 → 3RD-ICU 06:17 → 4TH 07-03 09:15
PROVIDERS: ADMIT Hospitalist; ATTEND Internal Medicine
PROC: 0B110F4 Bypass Trachea to Cutaneous with Tracheostomy Device, Open Approach (ICD-10-PCS; 2023-05-05)
PROC: 0D160ZA Bypass Stomach to Jejunum, Open Approach (ICD-10-PCS; 2023-05-05)
PROC: 0DN Gastrointestinal System, Release (ICD-10-PCS; 2023-05-05)
PROC: 0W3P0ZZ Control Bleeding in Gastrointestinal Tract, Open Approach (ICD-10-PCS; 2023-05-05)
PROC: 0BH17EZ Insertion of Endotracheal Airway into Trachea, Via Natural or Artificial Opening (ICD-10-PCS; 2023-05-05)
PROC: 0DH67UZ Insertion of Feeding Device into Stomach, Via Natural or Artificial Opening (ICD-10-PCS; 2023-05-05)
PROC: 5A1955Z Respiratory Ventilation, Greater than 96 Consecutive Hours (ICD-10-PCS; principal; 2023-05-05 07:00)
PROC: 3E0436Z Introduction of Nutritional Substance into Central Vein, Percutaneous Approach (ICD-10-PCS; 2023-05-06)
PROC: 30233N1 Transfusion of Nonautologous Red Blood Cells into Peripheral Vein, Percutaneous Approach (ICD-10-PCS; 2023-05-15)
PROC: 02HV33Z Insertion of Infusion Device into Superior Vena Cava, Percutaneous Approach (ICD-10-PCS; 2023-05-15)
PROC: 3E043XZ Introduction of Vasopressor into Central Vein, Percutaneous Approach (ICD-10-PCS; 2023-05-15)
PROC: 0T9B70Z Drainage of Bladder with Drainage Device, Via Natural or Artificial Opening (ICD-10-PCS; 2023-05-30)
DX: A41.52 Sepsis due to Pseudomonas (principal); N39.0 Urinary tract infection, site not specified; T83.518A Infection and inflammatory reaction due to other urinary catheter, initial encounter; J18.9 Pneumonia, unspecified organism; R57.1 Hypovolemic shock; E43 Unspecified severe protein-calorie malnutrition; N18.6 End stage renal disease; N17.0 Acute kidney failure with tubular necrosis; K25.5 Chronic or unspecified gastric ulcer with perforation; R65.21 Severe sepsis with septic shock; G93.41 Metabolic encephalopathy; J80 Acute respiratory distress syndrome; K66.1 Hemoperitoneum; K92.0 Hematemesis; E87.20 Acidosis, unspecified; D62 Acute posthemorrhagic anemia; E87.1 Hypo-osmolality and hyponatremia; E87.0 Hyperosmolality and hypernatremia; S27.309A Unspecified injury of lung, unspecified, initial encounter; Z16.29 Resistance to other single specified antibiotic; G93.1 Anoxic brain damage, not elsewhere classified; I13.2 Hypertensive heart and chronic kidney disease with heart failure and with stage 5 chronic kidney disease, or end stage renal disease; F05 Delirium due to known physiological condition; I50.9 Heart failure, unspecified; E11.22 Type 2 diabetes mellitus with diabetic chronic kidney disease; E11.65 Type 2 diabetes mellitus with hyperglycemia; E11.649 Type 2 diabetes mellitus with hypoglycemia without coma; D63.1 Anemia in chronic kidney disease; D53.9 Nutritional anemia, unspecified; K46.9 Unspecified abdominal hernia without obstruction or gangrene; K31.89 Other diseases of stomach and duodenum; E88.09 Other disorders of plasma-protein metabolism, not elsewhere classified; F31.9 Bipolar disorder, unspecified; E87.6 Hypokalemia; E87.70 Fluid overload, unspecified; E83.52 Hypercalcemia; D69.6 Thrombocytopenia, unspecified; E83.39 Other disorders of phosphorus metabolism; F41.9 Anxiety disorder, unspecified; G89.4 Chronic pain syndrome; T39.1X5A Adverse effect of 4-Aminophenol derivatives, initial encounter; S14.3XXA Injury of brachial plexus, initial encounter; F17.210 Nicotine dependence, cigarettes, uncomplicated; R29.6 Repeated falls; Z88.0 Allergy status to penicillin; Z78.1 Physical restraint status; Z56.0 Unemployment, unspecified; Z91.81 History of falling; Z11.52 Encounter for screening for COVID-19; Z74.01 Bed confinement status; Z98.84 Bariatric surgery status; Z68.29 Body mass index [BMI] 29.0-29.9, adult; Z79.899 Other long term (current) drug therapy; Z90.710 Acquired absence of both cervix and uterus; Z96.641 Presence of right artificial hip joint
CPT/HCPCS: 0240U; 0241U; 36415; 36430; 36600; 51702; 70450; 71045; 71250; 71260; 71275; 72125; 74018; 74176; 74177; 74240; 80048; 80053; 80076; 80143; 80179; 80202; 80307; 81001; 82077; 82310; 82805; 82947; 83036; 83605; 83615; 83735; 83880; 84100; 84132; 84443; 84478; 84484; 85014; 85018; 85025; 85027; 85379; 85384; 85610; 85730; 86705; 86706; 86850; 86900; 86901; 86920; 87040; 87070; 87077; 87086; 87088; 87186; 87205; 87340; 88305; 93005; 93306; 94002; 94003; 94640; 94660; 97110; 97116; 97161; 97165; 97168; 97530; 99285; A4216; C9113; J0132; J0171; J0360; J0461; J0612; J0692; J0696; J1170; J1200; J1450; J1630; J1650; J1940; J1953; J2185; J2248; J2250; J2354; J2405; J2543; J2704; J2930; J2997; J3010; J3411; J3475; J3480; J3486; J7030; J7040; J7042; J7050; J7060; J7120; J7613; J7644; J7799; P9016; P9047; Q0162; Q9967

== ENCOUNTER → 2023-09-16 | Emergency (ER) | payer OTHER ==
--- NOTE | 2023-09-16 12:37 | RAD REPORT ---
EXAM DESCRIPTION: RAD - Chest Single View - 09/16/2023 12:29 pm CLINICAL HISTORY: Device placement PICC line placement . IMPRESSION: PICC line with its tip in the mid superior vena cava
--- NOTE | 2023-09-16 12:42 | ER ---
Nurse's Notes [facility] Name: Stoney Vu Age: 48 yrs Sex: Female : 1975 Arrival Date: 09/16/2023 Time: 09:09 Bed 15 Private MD: Diagnosis: Encounter for PICC placement Presentation: 09/15 09:20 Chief complaint: Patient states: PICC LINE CAME OUT 0800 TODAY. RECEIVES TPN DAILY. db UNABLE TO TAKE ANYTHING BY MOUTH. NEEDS PICC LINE ACCESS REPLACED. Coronavirus screen: Vaccine status: Patient reports receiving the 2nd dose of the covid vaccine. Client denies travel out of the [place] in the last 14 days. At this time, the client does not indicate any symptoms associated with coronavirus-19. Ebola Screen: Patient negative for fever greater than or equal to 101.5 degrees Fahrenheit, and additional compatible Ebola Virus Disease symptoms Patient denies exposure to infectious person. Patient denies travel to an Ebola-affected area in the 21 days before illness onset. No symptoms or risks identified at this time. Initial Sepsis Screen: Does the patient meet any 2 criteria? No. Patient's initial sepsis screen is negative. Does the patient have a suspected source of infection? No. Patient's initial sepsis screen is negative. Risk Assessment: Do you want to hurt yourself or someone else? Patient reports no desire to harm self or others. Onset of symptoms was September 16, 2023. 09:20 Method Of Arrival: Wheelchair db 09:20 Acuity: ESTELLE 3 db Triage Assessment: 09:37 General: Appears in no apparent distress. comfortable, Behavior is calm, cooperative. db Pain: Denies pain. Neuro: Level of Consciousness is awake, alert, obeys commands, Oriented to person, place, time, situation. Respiratory: Airway is patent Respiratory effort is even, unlabored, Respiratory pattern is regular, symmetrical. Derm: ACCESS AREA CLEAN NO REDNESS. NO BLEEDING. STEAMER TENDER: 09:37 LMP N/A - Hysterectomy, Not db Historical: - Allergies: 09:37 PENICILLINS; db - PMHx: 09:37 Bipolar disorder; Depression; diabetes mellitus; Hypertensive disorder; kidney disease; db - PSHx: 09:37 Total abdominal hysterectomy; db - Immunization history:: Adult Immunizations unknown. - Social history:: Smoking status: Patient reports the use of cigarette tobacco products. Screenin:00 [facility] ED Fall Risk Assessment (Adult) History of falling in the last 3 months, db including since admission No falls in past 3 months (0 pts) Confusion or Disorientation No (0 pts) Intoxicated or Sedated No (0 pts) Impaired Gait No (0 pts) Mobility Assist Device Used No (0 pt) Altered Elimination No (0 pt) Score/Fall Risk Level 0 - 2 = Low Risk Oriented to surroundings, Maintained a safe environment. Abuse screen: Denies threats or abuse. Denies injuries from another. Nutritional screening: No deficits noted. Tuberculosis screening: No symptoms or risk factors identified. Assessment: 10:00 Reassessment: Patient appears in no apparent distress at this time. Patient and/or db family updated on plan of care and expected duration. Pain level reassessed. Patient is alert, oriented x 3, equal unlabored respirations, skin warm/dry/pink. 10:10 General: Appears in no apparent distress. well groomed, well developed, well nourished, me1 Behavior is calm, cooperative, appropriate for age, Reports PICC line came out today and patient gets TPN daily. Pain: Denies pain. Neuro: Level of Consciousness is awake, alert, obeys commands, Oriented to person, place, time, situation, Appropriate for age. Cardiovascular: Patient's skin is warm and dry. Respiratory: Airway is patent Respiratory effort is even, unlabored, Respiratory pattern is regular, symmetrical. GI: Reports Unable to take anything by mouth. : No deficits noted. Derm: Skin is pink, warm \T\ dry. Musculoskeletal: No deficits noted. Vital Signs: 09:20 BP 119 / 68; Pulse 74; Resp 18; Temp 98.4(O); Pulse Ox 100% ; Weight 74.84 kg; Height 5 db ft. 7 in. ; 10:30 BP 103 / 66; Pulse 72; Resp 16; Pulse Ox 100% on R/A; me1 11:30 BP 99 / 58; Pulse 70; Resp 16; Pulse Ox 99% on R/A; me1 12:50 BP 113 / 69; Pulse 71; Resp 16; Pulse Ox 97% on R/A; me1 09:20 Body Mass Index 25.84 (74.84 kg, 170.18 cm) db ED Course: 09:11 Patient arrived in ED. im 09:13 [facility]-C [facility] kb 09:13 Alysha Bruno MD is Attending Physician. kb 09:36 Teresa Mosher, RN is Primary Nurse. db 09:37 Triage completed. db 09:37 Arm band placed on Patient placed in an exam room. db 10:00 Primary Nurse role handed off by Teresa Mosher, RN me1 10:00 Teri Schultz, RN is Primary Nurse. me1 10:00 Patient has correct armband on for positive identification. Bed in low position. Call db light in reach. Side rails up X 1. Report given to SARAH CLARK. Warm blanket given. 10:00 [employer] contacted for PICC placement. BARN [employer] Heraclio notified. hb 10:00 Provided Education on: Pt notified of awaiting PICC team to replace line. No needs at kb3 this time. 10:00 No provider procedures requiring assistance completed. kb3 12:00 Inserted Accessed PICC line. Clean \T\ dry. Good blood return. Flushes easily. me1 12:31 Chest Single View XRAY In Process Unspecified. EDMS 12:56 Patient did not have IV access during this emergency room visit. me1 Administered Medications: No medications were administered Medication: 10:00 VIS not applicable for this client. db Outcome: 12:42 Discharge ordered by . kb 12:55 Discharged to home ambulatory, via wheelchair, with family, me1 12:55 Condition: stable 12:55 Discharge instructions given to patient, family, Instructed on discharge instructions, follow up and referral plans. Demonstrated understanding of instructions, follow-up care, 12:56 Patient left the ED. me1 Signatures: Dispatcher [employer] EDWY Vera Casillas FNP-C FNP-Marla Del Real RN RN Mary Ann White RN SARAH kb3 Teresa Mosher, RN RN Luana Mcmillan Teri Schultz, SARAH RN me1
--- NOTE | 2023-09-16 12:42 | EDPHYS ---
Physician Documentation [facility] Name: Stoney Vu Age: 48 yrs Sex: Female : 1975 Arrival Date: 09/16/2023 Time: 09:09 Bed 15 Private MD: ED Physician Alysha Bruno HPI: 09/15 09:45 This 48 yrs old Female presents to ER via Wheelchair with complaints of Picc line issue.kb 09:45 Pt is a 48 year old female who presents for PICC line placement. States she gets TPN kb through a PICC every night for 12 hours and her PICC came out last night so she came in to get a new one. Denies any pain. . HARNESS TIER: 09:37 LMP N/A - Hysterectomy, Not db Historical: - Allergies: 09:37 PENICILLINS; db - PMHx: 09:37 Bipolar disorder; Depression; diabetes mellitus; Hypertensive disorder; kidney disease; db - PSHx: 09:37 Total abdominal hysterectomy; db - Immunization history:: Adult Immunizations unknown. - Social history:: Smoking status: Patient reports the use of cigarette tobacco products. ROS: 09:44 Constitutional: As per HPI kb Exam: 09:44 Constitutional: This is a well developed, well nourished patient who is awake, alert, kb and in no acute distress. Head/Face: Normocephalic, atraumatic. ENT: Moist Mucous membranes Cardiovascular: Regular rate Respiratory: Respirations even and unlabored. No increased work of breathing. Talking in full sentences Abdomen/GI: Soft, non-tender. No distention Skin: Warm, dry with normal turgor. Normal color. MS/ Extremity: Pulses equal, no cyanosis. Neurovascular intact. Full, normal range of motion. Neuro: Awake and alert, GCS 15, oriented to person, place, time, and situation. Moves all extremities.= Vital Signs: 09:20 BP 119 / 68; Pulse 74; Resp 18; Temp 98.4(O); Pulse Ox 100% ; Weight 74.84 kg; Height 5 db ft. 7 in. ; 10:30 BP 103 / 66; Pulse 72; Resp 16; Pulse Ox 100% on R/A; me1 11:30 BP 99 / 58; Pulse 70; Resp 16; Pulse Ox 99% on R/A; me1 12:50 BP 113 / 69; Pulse 71; Resp 16; Pulse Ox 97% on R/A; me1 09:20 Body Mass Index 25.84 (74.84 kg, 170.18 cm) db MDM: 09:13 Patient medically screened. kb 09:44 Data reviewed: vital signs, nurses notes. kb 09:44 ED course: supervisor pumping station contacted about replacing picc line. PICC line nurse will kb be called to place new PICC. 09:47 Historians other than the Patient: Parent: mother. kb 12:39 Counseling: I had a detailed discussion with the patient and/or guardian regarding the kb historical points, exam findings, and any diagnostic results supporting the discharge/admit diagnosis, radiology results, the need for outpatient follow up, a family practitioner, to return to the emergency department if symptoms worsen or persist or if there are any questions or concerns that arise at home. 09/15 12:04 Order name: Chest Single View XRAY; Complete Time: 12:38 me1 Administered Medications: No medications were administered Disposition Summary: 09/16/23 12:42 Discharge Ordered Notes: Location: Home kb Condition: Stable kb Diagnosis - Encounter for PICC placement kb Followup: kb - With: Emergency Department - When: As needed - Reason: Worsening of condition Followup: kb - With: Private Physician - When: 2 - 3 days - Reason: Recheck today's complaints, Continuance of care, Re-evaluation by your physician Discharge Instructions: - Discharge Summary Sheet kb - PICC Home Care Guide kb Forms: - Medication Reconciliation Form kb - Thank You Letter kb - Antibiotic Education kb - Prescription Opioid Use kb - Patient Portal Instructions kb - Leadership Thank You Letter kb Signatures: Dispatcher [employer] Vera Gayle, PHONE SPECIALIST-C PHONE SPECIALIST-Teresa Terrazas, RN RN db
[2023-09-16 13:08] VITALS: BP 113/69; TEMP 98.4; O2SAT 97
== END ==
LOC: ER 09:09
DX: Z45.2 Encounter for adjustment and management of vascular access device (principal)
CPT/HCPCS: 71045; 99284

== ENCOUNTER 2023-12-10 11:41 | Emergency (ER) | payer OTHER ==
--- NOTE | 2023-12-10 12:47 | RAD REPORT ---
EXAM DESCRIPTION: RAD - Chest Single View - 12/10/2023 12:36 pm CLINICAL HISTORY: possible PICC displacement. Chest pain. COMPARISON: Chest Single View dated 09/16/2023; Chest Single View dated 06/25/2023; Chest Single View d ated 06/03/2023; Chest Single View dated 06/03/2023 FINDINGS: Portable technique limits examination quality. The patient's right PICC line appears mildly retracted to the level of the right innominate vein. The tip is 3 or 4 cm from ideal placement in the SVC. The lungs are grossly clear. The heart is normal i n size.
[2023-12-10 14:01] VITALS: BP 112/74; TEMP 97.2; O2SAT 100
--- NOTE | 2023-12-10 18:04 | EDPHYS ---
Physician Documentation [facility] Name: Stoney Vu Age: 48 yrs Sex: Female : 1975 Arrival Date: 12/10/2023 Time: 11:41 Bed 11 Private MD: ED Physician Vincent Gaffney HPI: 12/09 13:30 This 48 yrs old Female presents to ER via Ambulatory with complaints of Picc line rn problem. 13:30 Patient reports home health sent in to evaluate PICC line. Patient states that she was rn told that the PICC line looks a little longer than it did before and might of gotten pulled out a little bit. Otherwise working okay without complaints. No signs of infection. Able to give TPN and antibiotics through without problem.. Onset: The symptoms/episode began/occurred at an unknown time. The patient has not experienced similar symptoms in the past. 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 - Infectious Disease History:: Denies. - Social history:: Smoking status: Patient reports the use of cigarette tobacco products, smokes one pack cigarettes per day. - Family history:: not pertinent. - Hospitalizations: : No recent hospitalization is reported. ROS: 13:30 Constitutional: Negative for fever, chills, and weight loss, Cardiovascular: Negative rn for chest pain, palpitations, and edema, Respiratory: Negative for shortness of breath, cough, wheezing, and pleuritic chest pain, Abdomen/GI: Negative for abdominal pain, nausea, vomiting, diarrhea, and constipation, Skin: Negative for injury, rash, and discoloration, Exam: 13:30 Constitutional: This is a well developed, well nourished patient who is awake, alert, rn and in no acute distress. MS/ Extremity: Pulses equal, no cyanosis. Neurovascular intact. Right upper extremity PICC line noted, secured at antecubital space or just above it. No drainage or signs of cellulitis at the site. Vital Signs: 11:48 BP 112 / 74; Pulse 69; Resp 16; Temp 97.2; Pulse Ox 100% ; Weight 73.03 kg; Height 5 ll1 ft. 7 in. ; Pain 0/10; 11:48 Body Mass Index 25.22 (73.03 kg, 170.18 cm) ll1 11:48 Pain Scale: Adult ll1 MDM: 11:47 Patient medically screened. rn 13:30 Differential Diagnosis PICC line displacement. Data reviewed: vital signs, nurses rn notes, radiologic studies, plain films, and as a result, I will discharge patient. Independent interpretation of the following test(s) in the Emergency Department X-Ray: My interpretation is Chest x-ray obtained to see depth of PICC line, is mildly retracted per my interpretation.. Counseling: I had a detailed discussion with the patient and/or guardian regarding the historical points, exam findings, and any diagnostic results supporting the discharge/admit diagnosis, radiology results, the need for outpatient follow up, to return to the emergency department if symptoms worsen or persist or if there are any questions or concerns that arise at home. Special discussion: I discussed with the patient/guardian in detail that at this point there is no indication for admission to the hospital. It is understood, however, that if the symptoms persist or worsen the patient needs to return immediately for re-evaluation. ED course: After discussion with patient and family member joint decision made to not replace PICC line at this time, is just mildly retracted, no complications, is able to use PICC line without problem, no signs of infection. Has 1 week left of antibiotics. Return precautions given and understood.. 12/09 12:00 Order name: XRAY Chest (1 view); Complete Time: 12:48 ll1 Administered Medications: No medications were administered Disposition Summary: 12/10/23 13:34 Discharge Ordered Notes: Location: Home rn Problem: new rn Symptoms: are unchanged rn Condition: Stable rn Diagnosis - Encounter for PICC line evaluation rn Followup: rn - With: Private Physician - When: As needed - Reason: Recheck today's complaints, Re-evaluation by your physician Discharge Instructions: - Discharge Summary Sheet rn - PICC Home Care Guide rn Forms: - Medication Reconciliation Form rn - Antibiotic sports marketing internship - Prescription Opioid Use rn - Patient Portal Instructions rn - Leadership Thank You Letter rn Signatures: Dispatcher [employer] Vincent Hale MD MD rn Lewis, Lynsay, RN RN ll1 Corrections: (The following items were deleted from the chart) 12: 12:01 Chest Single View+[email or web address] ordered. EDMS EDMS 13:31 13:30 Constitutional: Negative for fever, chills, and weight loss, Cardiovascular: rn Negative for chest pain, palpitations, and edema, Respiratory: Negative for shortness of breath, cough, wheezing, and pleuritic chest pain, Abdomen/GI: Negative for abdominal pain, nausea, vomiting, diarrhea, and constipation, rn
--- NOTE | 2023-12-10 18:04 | ER ---
Nurse's Notes [facility] Name: Stoney Vu Age: 48 yrs Sex: Female : 1975 Arrival Date: 12/10/2023 Time: 11:41 Bed 11 Private MD: Diagnosis: Encounter for PICC line evaluation Presentation: 12/09 11:48 Chief complaint: Patient states: RUE PICC line pulling out slowly since last week. Sent ll1 in for evaluation, possible replacement. No fever. Coronavirus screen: Client denies travel out of the [place] in the last 14 days. At this time, the client does not indicate any symptoms associated with coronavirus-19. Ebola Screen: Patient denies travel to an Ebola-affected area in the 21 days before illness onset. Initial Sepsis Screen: Does the patient meet any 2 criteria? No. Patient's initial sepsis screen is negative. Does the patient have a suspected source of infection? No. Patient's initial sepsis screen is negative. Risk Assessment: Do you want to hurt yourself or someone else? Patient reports no desire to harm self or others. Onset of symptoms was December 02, 2023. 11:48 Method Of Arrival: Ambulatory ll1 11:48 Acuity: ESTELLE 3 ll1 Triage Assessment: 11:50 General: Appears in no apparent distress. Behavior is calm, cooperative, appropriate ll1 for age. Pain: Denies pain. Musculoskeletal: Reports RUE PICC line pulling out for 1 week. 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 - Infectious Disease History:: Denies. - Social history:: Smoking status: Patient reports the use of cigarette tobacco products, smokes one pack cigarettes per day. - Family history:: not pertinent. - Hospitalizations: : No recent hospitalization is reported. Screenin:[facility] ED Fall Risk Assessment (Adult) History of falling in the last 3 months, as6 including since admission No falls in past 3 months (0 pts) Confusion or Disorientation No (0 pts) Intoxicated or Sedated No (0 pts) Impaired Gait Yes (1 pt) Mobility Assist Device Used Yes (1 pt) Altered Elimination No (0 pt) Score/Fall Risk Level 0 - 2 = Low Risk Oriented to surroundings, Maintained a safe environment, Educated pt \T\ family on fall prevention, incl call for assistance when getting out of bed, Assessed \T\ reinforced patient's understanding of fall precautions. Abuse screen: Denies threats or abuse. Denies injuries from another. Nutritional screening: No deficits noted. Tuberculosis screening: No symptoms or risk factors identified. Assessment: 13:49 Reassessment: Patient appears in no apparent distress at this time. Patient and/or as6 family updated on plan of care and expected duration. Pain level reassessed. Patient is alert, oriented x 3, equal unlabored respirations, skin warm/dry/pink. PICC line drsg change Patient denies pain at this time. Vital Signs: 11:48 BP 112 / 74; Pulse 69; Resp 16; Temp 97.2; Pulse Ox 100% ; Weight 73.03 kg; Height 5 ll1 ft. 7 in. ; Pain 0/10; 11:48 Body Mass Index 25.22 (73.03 kg, 170.18 cm) ll1 11:48 Pain Scale: Adult ll1 ED Course: 11:45 Patient arrived in ED. mr 11:47 Vincent Gaffney MD is Attending Physician. rn 11:50 Triage completed. ll1 11:50 Arm band placed on. ll1 12:37 XRAY Chest (1 view) In Process Unspecified. EDMS 13:47 No provider procedures requiring assistance completed. Accessed PICC line. Clean \T\ dry. as6 Dressing loose. Good blood return. Flushes easily. Patient did not have IV access during this emergency room visit. Dressings: Tegaderm X 1; right upper arm. 13:48 Bed in low position. Call light in reach. Provided Education on: follow up. as6 Administered Medications: No medications were administered Medication: 13:49 VIS not applicable for this client. as6 Outcome: 13:34 Discharge ordered by . rn 13:48 Discharged to home via wheelchair, with family, as6 13:48 Condition: stable 13:48 Discharge instructions given to patient, Instructed on discharge instructions, follow up and referral plans. Demonstrated understanding of instructions, follow-up care, 13:49 Patient left the ED. as6 Signatures: Dispatcher [employer] EDMS Nini Aldrich, Reg Reg Vincent Kirk MD MD rn Lewis, Lynsay, RN RN ll1 Sina Lopez RN RN as6
== END 2023-12-10 13:49 | disposition home or self-care (01) ==
LOC: ER 11:41
DX: Z45.2 Encounter for adjustment and management of vascular access device (principal)
CPT/HCPCS: 71045